=== PATIENT | female | born 1950 | race Hispanic/Latino ===

== ENCOUNTER 2016-11-28 08:08 | Day surgery (SDC) | payer MEDICAID ==
[~2016-11-28 08:08] MED LIST: TETRACAINE 0.5% OS PRN
[2016-11-28] MEDS: AK-Dilate OS SCH ×3 (09:03→09:24)
[2016-11-28] MEDS: VIGAMOX OS SCH ×3 (09:03→09:24)
[2016-11-28] MEDS: MYDRIACYL OS SCH ×3 (09:03→09:24)
--- NOTE | 2016-11-28 09:03 | Anesthesia Consultation ---
Anesthesia Consult and Med Hx Date of service: 11/28/16 - Airway Anesthetic Teeth Evaluation: Dentures ROM Head & Neck: Adequate Mental/Hyoid Distance: Adequate Mallampati Class: Class III Intubation Access Assessment: Possibly Difficult - Pulmonary Exam CTA: No (inspiratory/expiratory wheezing) - Cardiac Exam Cardiac Exam: RRR - Pre-Operative Health Status ASA Pre-Surgery Classification: ASA3 Proposed Anesthetic Plan: MAC - Pulmonary Hx Smoking: Yes (1/2 PPD X 50 YRS) Hx Asthma: Yes SOB: Yes (SOB WITH ACTIVITY) COPD: Yes Hx Sleep Apnea: Yes (DX SLEEP APNEA- NO CPAP USE) - Cardiovascular System Hx Hypertension: Yes - Central Nervous System Hx Seizures: Yes Hx Back Pain: Yes (BACK PAIN TO ASTER LEGS) Hx Psychiatric Problems: Yes - Gastrointestinal Hx Gastroesophageal Reflux Disease: Yes - Endocrine Hx Cirrhosis: Yes Hx Liver Disease: Yes (CIRRHOSIS, HEPATITIS C) - Other Systems Hx Alcohol Use: Yes (ETOH ABUSE- PT STATES STILL DRINKS "A LITTLE") Hx Substance Use: Yes (HX COCAINE ABUSE-STOPPED X 8 YRS) Hx Cancer: No
--- NOTE | 2016-11-28 09:04 | Anesthesia Day of Surgery ---
Anesthesia Day of Surgery - Day of Surgery Patient Examined: Yes Patient H&P Reviewed: Yes Patient is NPO: Yes
[2016-11-28] MEDS ORDERED: VERSED ONE (10:14)
[2016-11-28] MEDS ORDERED: SUBLIMAZE ONE (10:15)
[2016-11-28] MEDS ORDERED: NACL 0.9% 100 ML ONE (10:38)
--- NOTE | 2016-11-28 10:50 | Post Anesthesia Evaluation ---
- Post Anesthesia Evaluation Patient Participated: Yes Airway Patent: Yes Stable Respiratory Function: Yes Nausea/Vomiting: No Temp > 96.8F: Yes Pain Manageable: Yes Adequeate Hydration: Yes Anesthesia Complications: No Block Receding Appropriately: Not Applicable Patient on Ventilator: No
--- NOTE | 2016-11-28 11:25 | Operative Report ---
Operative Report Operative Report: PATIENT'S NAME: DATE OF : DATE OF SURGERY: 11/28/2016 PREOPERATIVE DIAGNOSIS: Cataract left eye POSTOPERATIVE DIAGNOSIS: Same OPERATIVE PROCEDURE: Phacoemulsification with intraocular lens implantation, left eye SURGEON: Kristy Oquendo M.D. MATERIAL SPECIALIST SURGEON: Teresa Lens: [id number] 25.0 D ANESTHESIA: Monitored anesthesia care in combination with topical and intracameral anesthesia because of the established specific risk of reflux, arrhythmias, or anxiety attacks associated with ocular manipulation, as well as the difficulty of the employment counselor to manage such potentially catastrophic events while simultaneously attempting to complete the surgical procedure and was deemed necessary for the patient's safety to have an Machine Assembler Supervisor present during the procedure whenever possible. An Machine Assembler Supervisor was utilized to regulate the intravenous sedation of the patient so the patient was cooperative yet not asleep in order for the patient to successfully maintain fixation of the eye on the operating light of the microscope. COMPLICATIONS: No surgical complications No blood loss. ALLERGIES: IV dye PROGNOSIS: Excellent INDICATIONS FOR SURGERY: The patient is undergoing surgery in the hopes of eliminating or improving these visual difficulties. PROCEDURE: After arriving at the surgery center, the patient was given topical anesthetic and dilating drops, as noted in the record. The patient was then taken into the operating room and given more anesthetic drops. The eyelids , lashes, and lid margins were scrubbed with Betadine solution, and the patient was draped. The Nurse Machine Assembler Supervisor administered IV sedation and monitored the patient during the procedure. The eye was then fixated with a 0.12, and a stab incision was made in the peripheral clear cornea into the anterior chamber. This was made on my left side. Viscoelastic was next used to fill the anterior chamber. The eye was once again fixated with the 0.12 forceps and a keratome was used make an incision in clear cornea peripherally on my right hand side temporally. The capsule forceps were used to open the central anterior capsule and then make a continuous round capsulotomy. Hydrodissection was carried out utilizing a cannula and balanced salt solution to delineate the cortical material from the capsule and the nucleus from the cortical material. The phaco tip was introduced into the eye and used to remove the anterior cortical material in the area of the capsulotomy. Then the phaco tip was buried into the nucleus, and a chopping instrument was introduced into the eye and used to provide countertraction in the nucleus between this instrument and the phaco tip fracturing the nucleus. This procedure was repeated multiple times, providing multiple small segments of the lens, and then the phaco tip was used to remove each of these segments. An I/A tip was then used to remove the remaining cortex. The anterior chamber was refilled with viscoelastic. An one-piece, acrylic intraocular lens was then placed into an inserting cartridge. The tip of the inserting cartridge was introduced into the keratome incision and into the anterior chamber. The implant was gently advanced through the cartridge and into the eye, where it unfolded, and both haptics were placed in the capsular bag, where it centered nicely and appeared to be well fixated. After placement of the intraocular lens, the I~and~A handpiece was placed back into the eye and used to remove the viscoelastic, including viscoelastic that was behind the optic of the intraocular lens. The anterior chamber was then filled with balanced salt solution, and hydration of the wound was used to cause swelling of the wound and more appropriate watertight closure. When the wound was found to be firm, the patient was asked to comment on how bright the light was. If there was no light perception at all or if the light was substantially dimmer than during the rest of the surgery, the amount of fluid in the eye was decompressed to lower the intraocular pressure until the patient could see the bright light again. This was done to avoid any damage or decreased blood flow to the optic nerve. MEDICATIONS APPLIED AT END OF SURGERY: One drop of Pred Forte and Vigamox The patient was given a shield to wear at night and was instructed not to rub or push on the eye. DISCHARGE SUMMARY: The patient was released in stable condition. The patient and those with the patient were given a written sheet of postoperative instructions and counseling on any abnormal laboratory studies. The patient is to see us tomorrow for follow-up in the office and is to call immediately for any difficulties. Kristy Oquendo M.D. Date
--- NOTE | 2016-11-28 11:26 | Short Stay Summary ---
Short Stay Documentation Date of service: 11/28/16 - History H&P: obtained from office - Allergies and Medications Current Medications: Allergies Iodinated Contrast Media - IV Dye Allergy (Verified 09/19/16 16:17) Itching ivp dye Allergy (Uncoded 09/19/16 16:17) Itching Home Medications Medication Instructions Recorded Confirmed Last Taken Type QUEtiapine [Seroquel] 400 mg PO QHS 08/27/13 11/28/16 11/27/16 18:45 History Disulfiram (Nf) [Antabuse (Nf)] 250 mg PO DAILY 10/13/13 11/28/16 11/27/16 18: 45 History Ropinirole HCl [Requip] 0.5 mg PO DAILY #30 tablet 10/16/13 11/28/16 11/27/16 18 :45 Rx Loratadine [Claritin] 10 mg PO DAILY 12/04/13 11/28/16 11/27/16 18:45 History Promethazine [Phenergan TAB] 25 mg PO TID PRN 12/04/13 11/28/16 01/23/16 History Ranitidine HCl [Zantac] 150 mg PO QDAY 12/04/13 11/28/16 11/27/16 18:45 History ALPRAZolam [Xanax TAB] 0.5 mg PO DAILY #30 tablet 09/06/16 11/28/16 11/27/16 18: 45 Rx Arformoterol Nebu [Brovana Nebu] 15 mcg IH Q12HRT #60 ml 09/06/16 11/28/1611/27 18:45 Rx Cetirizine HCl [ZyrTEC] 10 mg PO DAILY #30 capsule 09/06/16 11/28/16 11/27/16 18 :45 Rx Donepezil [Aricept] 5 mg PO QHS #30 tablet 09/06/16 11/26/16 Unknown Rx Famotidine [Pepcid] 20 mg PO BID #60 tablet 09/06/16 11/28/16 11/27/16 18:45 Rx Gabapentin [Neurontin] 300 mg PO BID #60 capsule 09/06/16 11/26/16 Unknown Rx Gemfibrozil [Lopid] 600 mg PO BID #60 tablet 09/06/16 11/26/16 Unknown Rx HYDROcodone/APAP 5-325 [[place] 1 each PO Q6H PRN #40 tablet 09/06/16 11/26/16 Unknown Rx 5-325 mg TAB] Ipratropium/Albuterol Sulfate 1 ampul IH Q6HRT #100 ampul.neb 09/06/16 11/28/16 11/27/16 18:45 Rx [Duoneb 0.5 mg-3 mg/3 ml Soln] Methocarbamol [Robaxin TAB] 750 mg PO BID #60 tablet 09/06/16 11/28/16 11/27/16 18:45 Rx PARoxetine [Paxil] 40 mg PO DAILY #30 tablet 09/06/16 11/28/16 11/27/16 18:45 Rx Simvastatin [Zocor TAB] 20 mg PO QHS tablet 09/06/16 11/28/16 11/27/16 18:45 Rx amLODIPine [Norvasc] 10 mg PO QDAY #30 tablet 09/06/16 11/28/16 11/27/16 18:45 Rx busPIRone [Buspar] 10 mg PO TID #60 tablet 09/06/16 11/28/16 11/27/16 18:45 Rx rOPINIRole [Requip] 0.5 mg PO QHS #30 tablet 09/06/16 11/28/16 11/27/16 18:45 Rx Active Medications Moxifloxacin HCl (Vigamox) 1 drops OS Q5MIN ANGE Stop: 11/28/16 18:00 Last Admin: 11/28/16 09:24 Dose: 1 drops Phenylephrine HCl (Ak-Dilate) 1 drops OS Q5MIN ANGE Stop: 11/28/16 18:01 Last Admin: 11/28/16 09:24 Dose: 1 drops Prednisolone Acetate (Pred Forte 1%) 1 drops OS QID ANGE Tetracaine HCl (Tetracaine 0.5%) 1 drops OS Q5M PRN PRN Reason: Analgesia Stop: 11/28/16 18:00 Last Admin: 11/28/16 09:02 Dose: 1 drops Tropicamide (Mydriacyl) 1 drops OS Q5MIN ANGE Stop: 11/28/16 18:00 Last Admin: 11/28/16 09:24 Dose: 1 drops - Brief post op/procedure progress note Date of procedure: 11/28/16 Pre-op diagnosis: cataract left eye Post-op diagnosis: same Procedure: Phacoemulsification with intraocular lens insertion left eye Anesthesia: MAC Surgeon: GALINA MONTES Estimated blood loss: none Pathology: none Condition: stable - Disposition Condition at discharge: Good Disposition: DISCHARGED TO HOME OR SELFCARE - Discharge Diagnoses (1) Cataract Status: Resolved Short Stay Discharge Plan Additional Instructions: PLEASE FOLLOW DR CARDOSO'S PRINTED INSTRUCTIONS AND THE EYE DROP SCHEDULE. FOR ANY CONCERNS RELATED TO YOUR SURGERY, PLEASE CALL THE SURGEON. Follow up with: MITCHELL GUEVARA MD [Primary Care Provider] - 7 Days Forms: Outpatient Surgery [place] [facility].
[2016-11-28] MEDS ORDERED: PRED FORTE 1% OS SCH (12:00)
[2016-11-28 12:03] VITALS: BP 151/88
--- NOTE | 2016-11-29 02:18 | Admit Criteria Form ---
Admission Criteria Documentation: AMBULATORY SURGERY EXCEPTION CRITERIA Ambulatory Surgery Exception Criteria ( Place 'X' for any and all applicable criteria): Surgery or procedure performed on ambulatory basis may require inpatient stay for[A] ANY ONE of the following(1)(2)(3)(4)(5)(6)(7)(8)(9): [X] I. A preoperative situation, condition, or finding that warrants inpatient stay as indicated by ANY ONE of the following: [] a) Inpatient care needed because of severity of a disease or condition rather than the surgery (eg, severe cardiac or respiratory disease, severe infection) (15) (16 ) (17) (18) [] b) Emergent procedure (eg, angioplasty for acute ischemia)(19) [] c) Complex surgical approach or situation as indicated by ANY ONE of the following(3): [] i) Open approach needed instead of usual endoscopic, transcatheter, or other less invasive procedure [] ii) Difficult approach because of previous operation [] iii) Airway monitoring required after open neck procedures(20)(21) [] iv) Large mass requiring unusually extensive dissection [] v) Additional complicating feature requiring inpatient care (eg, drain management)(22(23): [X] d) Major surgery in a pt with high anesthetic risk as indicated by ANY ONE of the following (2)(3)(5)(7)(8): [X] i) ASA risk class III or higher (severe systemic disease impairing function) [D] [] ii) Advanced age (eg, older than 85 years)(14)(24) [] iii) Symptomatic heart failure(25) [] iv) Symptomatic asthma or COPD(8)(21) [] v) Morbid obesity with hemodynamic or respiratory problems(20)( 21)(26)(27) [] vi) Obstructive sleep apnea(20)(21) [] vii) Former premature infants who are younger than 60 weeks [] viii) High risk for severe postoperative abnormalities (eg, severe postoperative hypocalcemia after parathyroidectomy for severe hyperparathyroidism)(27)( 28) [] ix) Unstable angina(25) [] e) Drug-related risk requiring inpatient stay as indicated by ANY ONE of the following(5)(10)(14)(32)(33) [] i) Procedure requires discontinuing drugs or other therapy (eg , antiarrhythmic medication, antiseizure medication), which necessitates inpatient observation or treatment.(18)(31) [] ii) Major surgery and high risk drug use as indicated by ANY ONE of the following: [] 1) Active abuse of cocaine or similar drug [] 2) Monoamine oxidase inhibitor use [] 3) Other drug identified as posing risk [] f) Inadequate outpatient care situation as indicated by ANY ONE of the following(5)(10)(14)(32)(33) [] i) Patient lives remote from medical facility and procedure has urgent complication potential, and temporary nearby residence cannot be arranged [] ii) Patient will have postprocedure incapacitation and inadequate assistance at home, or alternative level of care cannot be arranged. [] iii) Patient will have long general anesthesia or procedure side effect resolution time, and competent person to stay with patient on first postoperative night at home or alternative level of care cannot be arranged. []iv) Other inadequate outpatient situation that cannot be handled by other means [] II. A perioperative event, condition, or finding that warrants inpatient stay as indicated by ANY ONE of the following (1)(2)(3): [] a) Inadequate physiologic recovery: cardiovascular, respiratory, or hemodynamic status not normal or near preoperative baseline(18) [] b) Hemodynamic instability [] c) Patient not alert with near normal or baseline mental status [] d) Temperature not normal or as expected and not appropriate for outpatient treatment of condition [] e) Ambulatory or appropriate activity level status not yet achieved post procedure [E](34)(35)(36) [] f) Operative site not appropriate (eg, unexpected or excessive drainage or bleeding) [] g) Postoperative effects not resolved or adequately managed (eg, significant pain or vomiting not appropriate for outpatient or next level of care)(10)(12) [] h) Complicating features requiring inpatient care as indicated by ANY ONE of the following(37): [] i) Severe complications of procedure (eg, bowel injury, airway compromise, vascular injury,severe hemorrhage) [] ii) Extensive (eg, dissection far beyond usual scope of procedure ) or prolonged (eg, 120 minutes beyond usual) surgery needed requiring inpatient postoperative care [] iii) Conversion to an open or complex procedure that requires inpatient care (eg, open vs laparoscopic cholecystectomy, abdominal vs vaginal hysterectomy)(38) [] iv) Comorbid condition or test result identified during or post procedure that requires inpatient care (7) [] v) Malignant hyperthermia(30) [] vi) Other complicating feature requiring inpatient care(22)(23) Inpatient stay may be needed until ALL of the following are present (1)(2)(3)(4) (5)(6)(10)(14)(33)(40): []a) Physiologic recovery: cardiovascular, respiratory, and hemodynamic status normal or near preoperative baseline []b) Hemodynamic stability []c) Patient alert, with near normal or baseline mental status []d) Temperature appropriate: patient afebrile or temperature appropriate for outpt treatment of condition []e) Activity level appropriate: ambulatory or appropriate activity level post procedure []f) Operative site appropriate as indicated by ALL of the following: []i) Site dry or with expected drainage []ii) Any blood noted is as expected for procedure. []g) Postoperative effects resolved or managed as indicated by ALL of the following: []i) Pain management appropriate for outpatient (or next level of) care(10) []ii) Minimal nausea and vomiting: if present, successfully treated with oral medication(12) []iii) Headache, dizziness, or drowsiness (if present) are mild. []h) Voiding status acceptable as indicated by ANY ONE of the following: []i) Voiding spontaneously []ii) No voiding but instructions given for follow-up in 6 to 8 hours []iii) Urinary catheter in place, and instructions given for follow-up []i) Complicating features requiring inpatient care manageable at a lower level of care(37) []j) Comorbid conditions manageable at a lower level of care(37) The original [employer] content created by [employer] has been revised. The portions of the content which have been revised are identified through the use of italic text or in bold, and [facility] [employer] has neither reviewed nor approved the modified material. All other unmodified content is copyright [employer]. Please see references footnoted in the original [employer] edition 2016 Admission Criteria Met: Yes
== END 2016-11-28 11:20 | disposition home or self-care (01) ==
LOC: OR 08:08
DX: H25.12 Age-related nuclear cataract, left eye (principal); F17.210 Nicotine dependence, cigarettes, uncomplicated; I10 Essential (primary) hypertension; E78.00 Pure hypercholesterolemia, unspecified; J43.9 Emphysema, unspecified; J44.9 Chronic obstructive pulmonary disease, unspecified; F32.9 Major depressive disorder, single episode, unspecified; F41.9 Anxiety disorder, unspecified; Z72.89 Other problems related to lifestyle; Z90.49 Acquired absence of other specified parts of digestive tract; E89.0 Postprocedural hypothyroidism; Z96.652 Presence of left artificial knee joint; F14.90 Cocaine use, unspecified, uncomplicated; G47.33 Obstructive sleep apnea (adult) (pediatric)
CPT/HCPCS: 66984; J2250; J3010; V2630; V2632

== ENCOUNTER 2016-12-05 16:27 | Emergency (ER) | payer MEDICAID ==
[2016-12-05] MEDS ORDERED: MORPHINE IV ONE (17:08)
--- NOTE | 2016-12-05 17:10 | Emergency Department Report ---
HPI - General Chief Complaint: Abdominal Pain Time Seen by Provider: 12/05/16 16:52 - HPI HPI: This is a 66-year-old female presents to the emergency department by EMS with complaint of a 23 day history of generalized abdominal pain. This associated with some nausea and vomiting. She denies any fever, vaginal bleeding, discharge, dysuria, back pain. She did not take anything for symptoms prior to presentation. The patient otherwise says she is urinating and having normal bowel movements. No recent travel or sick contacts at home. The patient has history of arthritis, asthma, COPD on 2 L oxygen nasal cannula, GERD, hypertension, cirrhosis, hepatitis C. She has a past surgical history of cholecystectomy and thyroid surgery. Her primary care doctor is Dr. PA Past Medical Hx - Past Medical History Previous Medical History?: Yes Hx Hypertension: Yes Hx GERD: Yes Hx Liver Disease: Yes (CIRRHOSIS, HEPATITIS C) Hx Arthritis: Yes Hx Seizures: Yes Hx Psychiatric Treatment: Yes Hx Asthma: Yes Hx COPD: Yes Hx Dementia: Yes (POOR MEMORY , ON MEDS) Additional medical history: osteoporosis, sleep apnea/cpap @ night, Home O2-3L, emphysema - Surgical History Past Surgical History?: Yes Hx Cholecystectomy: Yes Additional Surgical History: thyroid surg t&a - Social History Smoking Status: Current Every Day Smoker - Medications Home Medications: Home Medications Medication Instructions Recorded Confirmed Last Taken Type QUEtiapine [Seroquel] 400 mg PO QHS 08/27/13 11/28/16 11/27/16 18:45 History Disulfiram (Nf) [Antabuse (Nf)] 250 mg PO DAILY 10/13/13 11/28/16 11/27/16 18: 45 History Ropinirole HCl [Requip] 0.5 mg PO DAILY #30 tablet 10/16/13 11/28/16 11/27/16 18 :45 Rx Loratadine [Claritin] 10 mg PO DAILY 12/04/13 11/28/16 11/27/16 18:45 History Promethazine [Phenergan TAB] 25 mg PO TID PRN 12/04/13 11/28/16 01/23/16 History Ranitidine HCl [Zantac] 150 mg PO QDAY 12/04/13 11/28/16 11/27/16 18:45 History ALPRAZolam [Xanax TAB] 0.5 mg PO DAILY #30 tablet 09/06/16 11/28/16 11/27/16 18: 45 Rx Arformoterol Nebu [Brovana Nebu] 15 mcg IH Q12HRT #60 ml 09/06/16 11/28/1611/27 18:45 Rx Cetirizine HCl [ZyrTEC] 10 mg PO DAILY #30 capsule 09/06/16 11/28/16 11/27/16 18 :45 Rx Donepezil [Aricept] 5 mg PO QHS #30 tablet 09/06/16 11/26/16 Unknown Rx Famotidine [Pepcid] 20 mg PO BID #60 tablet 09/06/16 11/28/16 11/27/16 18:45 Rx Gabapentin [Neurontin] 300 mg PO BID #60 capsule 09/06/16 11/26/16 Unknown Rx Gemfibrozil [Lopid] 600 mg PO BID #60 tablet 09/06/16 11/26/16 Unknown Rx HYDROcodone/APAP 5-325 [[place] 1 each PO Q6H PRN #40 tablet 09/06/16 11/26/16 Unknown Rx 5-325 mg TAB] Ipratropium/Albuterol Sulfate 1 ampul IH Q6HRT #100 ampul.neb 09/06/16 11/28/16 11/27/16 18:45 Rx [Duoneb 0.5 mg-3 mg/3 ml Soln] Methocarbamol [Robaxin TAB] 750 mg PO BID #60 tablet 09/06/16 11/28/16 11/27/16 18:45 Rx PARoxetine [Paxil] 40 mg PO DAILY #30 tablet 09/06/16 11/28/16 11/27/16 18:45 Rx Simvastatin [Zocor TAB] 20 mg PO QHS tablet 09/06/16 11/28/16 11/27/16 18:45 Rx amLODIPine [Norvasc] 10 mg PO QDAY #30 tablet 09/06/16 11/28/16 11/27/16 18:45 Rx busPIRone [Buspar] 10 mg PO TID #60 tablet 09/06/16 11/28/16 11/27/16 18:45 Rx rOPINIRole [Requip] 0.5 mg PO QHS #30 tablet 09/06/16 11/28/16 11/27/16 18:45 Rx Dicyclomine [Bentyl] 10 mg PO QID PRN #20 capsule 12/05/16 Unknown Rx Nitrofurantoin [place]/M-Cryst 100 mg PO Q12HR #14 capsule 12/05/16 Unknown Rx [Macrobid CAP] ED Review of Systems ROS: Stated complaint: ABD PAIN Other details as noted in HPI Comment: All other systems reviewed and negative Constitutional: denies: chills, fever Eyes: denies: eye pain, eye discharge, vision change ENT: denies: ear pain, throat pain Respiratory: denies: cough, shortness of breath, wheezing Cardiovascular: denies: chest pain, palpitations Gastrointestinal: abdominal pain, nausea, vomiting Genitourinary: denies: urgency, dysuria, discharge Musculoskeletal: denies: back pain, joint swelling, arthralgia Skin: denies: rash, lesions Neurological: denies: headache, weakness, paresthesias Physical Exam - Physical Exam Vital Signs: Vital Signs 12/05/16 12/05/16 12/05/16 16:34 16:41 16:42 Temperature 98.4 F Pulse Rate 105 H 108 H Respiratory 22 22 Rate Blood Pressure 161/90 161/90 O2 Sat by Pulse 95 96 97 Oximetry Physical Exam: GENERAL: The patient is well-developed well-nourished. HEENT: Normocephalic. Atraumatic. Extraocular motions are intact. Patient has moist mucous membranes. Pupils equal reactive to light bilateral. NECK: Supple. Trachea is midline. CHEST/LUNGS: Clear to auscultation. There is some tachypnea and no accessory muscle use. There is no respiratory distress noted. HEART/CARDIOVASCULAR: Regular. There is no tachycardia. There is no gallop rub or murmur. ABDOMEN: Abdomen is soft. Mild generalized tenderness to palpation of the abdomen or no guarding rebound tenderness. Morbidly obese habitus. Patient has normal bowel sounds. There is no abdominal distention. SKIN: Skin is warm and dry. NEURO: The patient is awake, alert, and oriented. The patient is cooperative. The patient has no focal neurologic deficits. The patient has normal speech. MUSCULOSKELETAL: There is no tenderness or deformity. There is no limitation range of motion. There is no evidence of acute injury. ED Course Vital Signs 12/05/16 12/05/16 12/05/16 16:34 16:41 16:42 Temperature 98.4 F Pulse Rate 105 H 108 H Respiratory 22 22 Rate Blood Pressure 161/90 161/90 O2 Sat by Pulse 95 96 97 Oximetry ED Medical Decision Making - Lab Data Result diagrams: 12/05/16 17:23 12/05/16 17:23 - Radiology Data Radiology results: report reviewed, image reviewed interpreted by me: Abdominal x-ray shows nonobstructive nonspecific bowel gas. CT of the abdomen and pelvis without contrast shows indeterminate nodular density of the right lung base. Several small hepatic cysts. No acute abnormalities are seen in the abdomen or pelvis. - Medical Decision Making 66-year-old female presents with a 2 to three-day history of some generalized abdominal pain. Her labs show some leukopenia, hypokalemia that was replaced with potassium chloride and a mild urinary tract infection. Patient's abdominal x-ray shows some nonspecific nonobstructive bowel gas. Due to the patient's complaint of her discomfort a CT of the abdomen and pelvis was done that showed an indeterminate nodular density of the right lung base and some hepatic cysts but otherwise no acute process. The patient was told of the imaging results of that she can follow up with Dr. Guevara regarding the nodule in the lungs. Patient was given some pain medication here and appeared improved. The patient's labs came back showing a urine drug screen positive for cocaine, which has occurred in the past. The patient still denies any use of illicit drugs but for this reason I did not feel comfortable prescribing opiate narcotics, which the patient was requesting explicitly. The patient was given some Bentyl and encouraged to follow-up with her primary care doctor. She was also encouraged to return to the emergency department with any worsening of her symptoms or any acute distress. Vital signs stable throughout her ED course. Critical Care Time: No Critical care attestation.: If time is entered above; I have spent that time in minutes in the direct care of this critically ill patient, excluding procedure time. ED Disposition Clinical Impression: Cocaine abuse, Pulmonary nodule, Hypokalemia COPD (chronic obstructive pulmonary disease) Qualifiers: COPD type: unspecified COPD Qualified Code(s): J44.9 - Chronic obstructive pulmonary disease, unspecified Abdominal pain Qualifiers: Abdominal location: generalized Qualified Code(s): R10.84 - Generalized abdominal pain UTI (urinary tract infection) Qualifiers: Urinary tract infection type: acute cystitis Hematuria presence: without hematuria Qualified Code(s): N30.00 - Acute cystitis without hematuria Disposition: DISCHARGED TO HOME OR SELFCARE Is pt being admited?: No Condition: Stable Instructions: Urinary Tract Infection in Women (ED), Chronic Obstructive Pulmonary Disease (ED), Abdominal Pain (ED), Pulmonary Nodules (ED) Additional Instructions: Please follow-up with Dr. Guevara in the next few days regarding your abdominal discomfort and has a follow-up for your COPD and the CT findings of possible right lung nodule. Return to the emergency department with any worsening of your symptoms or any acute distress. Prescriptions: Dicyclomine [Bentyl] 10 mg PO QID PRN #20 capsule PRN Reason: Pain Nitrofurantoin [place]/M-Cryst [Macrobid CAP] 100 mg PO Q12HR #14 capsule Referrals: PRIMARY MD GENTRY [Primary Care Provider] - 3-5 Days MITCHELL GUEVARA MD [Staff Physician] - 3-5 Days Time of Disposition: 21:24
[2016-12-05] MEDS ORDERED: ZOFRAN ONE (17:19)
[2016-12-05] MEDS ORDERED: ZOFRAN IV ONE (17:33)
[2016-12-05 18:00] LABS: Hematocrit 39.9 % (30.3-42.9); Hemoglobin 12.9 gm/dl (10.1-14.3); Mean Corpuscular HGB Conc 32 % (30-34); Mean Corpuscular Hemoglobin 29 pg (28-32); Mean Corpuscular Volume 89 fl (79-97); Platelet Count 150 K/mm3 (140-440); Red Blood Count 4.47 M/mm3 (3.65-5.03); Red Cell Distribution Width 14.3 % (13.2-15.2); White Blood Count 2.6 K/mm3 (4.5-11.0)
[2016-12-05 18:10] LABS: Alanine Aminotransferase 29 units/L (7-56); Albumin 3.8 g/dL (3.9-5); Alkaline Phosphatase 91 units/L (35-129); Anion Gap 17 mmol/L; Bilirubin,Total 0.4 mg/dL (0.1-1.2); Blood Urea Nitrogen 10 mg/dL (7-17); Calcium 8.3 mg/dL (8.4-10.2); Carbon Dioxide 24 mmol/L (22-30); Chloride 94.6 mmol/L (98-107); Glucose 105 mg/dL (65-100); Lipase 30 units/L (13-60); Sodium 133 mmol/L (137-145); Total Protein 7.5 g/dL (6.3-8.2)
[2016-12-05 18:13] LABS: Potassium 2.9 mmol/L (3.6-5.0)
[2016-12-05] MEDS ORDERED: K-DUR PO ONE (18:27)
[2016-12-05] MEDS ORDERED: NACL ONE (18:32)
[2016-12-05 18:45] VITALS: BP 131/70
[2016-12-05 18:51] LABS: Basophils % (Manual) 0 % (0.0-1.8); Blastocytes % (Manual) 0 %; Eosinophils % (Manual) 0 % (0.0-4.3)
[2016-12-05 18:52] LABS: Anisocytosis 1+; Diff Status Complete; Platelet Estimate Consistent w Auto; Poikilocytosis 1+
--- NOTE | 2016-12-05 20:00 | Cat Scan Report ---
FINAL REPORT PROCEDURE: CT ABDOMEN PELVIS WO CON TECHNIQUE: Computerized axial tomography of the abdomen and pelvis was performed without intravenous contrast. This study is performed without intravascular contrast material and its sensitivity for abdominal and pelvic pathology, including neoplasms, inflammation, abscess, free fluid, thrombosis, arterial dissection and infarction, is reduced compared with a contrast enhanced study. HISTORY: Abd pain COMPARISON: No prior studies are available for comparison. FINDINGS: Lower Lung gil: There is an indeterminate nodular density measuring 6 millimeters in the right middle lobe seen on image 1 of the axial images. The entire nodule is not visualized. There is some patchy density present in the lingula suggesting small amount of atelectasis. Small air cyst is visualized in the left lower lobe. Upper Abdomen: There are 2 small low-density nodules in the right lobe of the liver and 1 in the left lobe of the liver which appear to represent small hepatic cyst. The liver is otherwise unremarkable. The gallbladder is surgically absent. The spleen is not enlarged. The adrenal glands and the pancreas show no abnormalities. Kidneys, Ureters and Urinary bladder: No abnormalities are seen. Retroperitoneum: Atherosclerotic changes are seen in the abdominal aorta. No aneurysm is visualized. Nonspecific subcentimeter lymph nodes are seen in the retroperitoneum. No pathologically enlarged lymph nodes are identified. Bowel: No focal bowel abnormalities are seen. There is no evidence of bowel obstruction or ascites. There is no free intraperitoneal gas. Normal-appearing appendix appears to be visualized in the right lower quadrant anteriorly. Reproductive organs: Uterus and adnexa are unremarkable. Other: No acute bony abnormalities are seen. IMPRESSION: Indeterminate nodular density right lung base as described. Consider follow-up CT scan of the chest for further evaluation. Several small hepatic cysts appear to be present. This could be confirmed with ultrasound if clinically indicated. No acute abnormalities are seen in the abdomen or pelvis.
[2016-12-05 20:56] LABS: Urine Drugs of Abuse Note Disclamer
[2016-12-05 21:10] LABS: Bilirubin,Urine NEG (Negative); Blood,Urine NEG (Negative); Ketones,Urine TR mg/dL (Negative); Leukocyte Esterase,Urine TR (Negative); Mucus,Urine 1+ /HPF; Nitrite,Urine NEG (Negative)
[2016-12-05 21:13] LABS: Protein,Urine >500 mg/dL (Negative)
--- NOTE | 2016-12-06 11:30 | XRay Report ---
Abdominal series: AP view of the chest is unremarkable. There is mild gaseous distention of scattered small bowel loops with multiple air-fluid levels. There is gas identified in the colon. No free air identified. No soft tissue mass. No abnormal soft tissue calcifications. Cholecystectomy clips present. Impression: Nonspecific ileus pattern.
== END 2016-12-05 22:55 | disposition home or self-care (01) ==
LOC: ED 16:27
DX: N30.00 Acute cystitis without hematuria (principal); J44.9 Chronic obstructive pulmonary disease, unspecified; J98.4 Other disorders of lung; E87.6 Hypokalemia; F14.10 Cocaine abuse, uncomplicated; R10.84 Generalized abdominal pain; I10 Essential (primary) hypertension; K21.9 Gastro-esophageal reflux disease without esophagitis; J45.909 Unspecified asthma, uncomplicated; F17.200 Nicotine dependence, unspecified, uncomplicated
CPT/HCPCS: 36415; 74020; 74176; 80053; 80307; 81001; 83690; 85007; 85025; 96374; 96375; 99285; J2270; J2405

== ENCOUNTER 2017-08-09 15:41 | Inpatient (IN) | payer MEDICARE ==
[2017-08-09] MEDS ORDERED: ATROVENT IH ONE ×3 (17:07→21:10)
[2017-08-09] MEDS ORDERED: XOPENEX IH ONE ×3 (17:07→21:10)
--- NOTE | 2017-08-09 17:09 | Emergency Department Report ---
ED N/V/D HPI - General Chief complaint: Pain General Stated complaint: GENERAL SICKNESS Time Seen by Provider: 08/09/17 17:02 Source: patient Mode of arrival: Stretcher Limitations: No Limitations - History of Present Illness Initial comments: 67 yo female poor historian . Pt presents her because she feel sick. Her sickness included nausea fo 1 week and abdominal pain. She has also been couching for 1 week and is on 2l home oxygen. she also feels weak and her entire body is tender to the touch. She has a h/o COPD,EMPHYSEMA,BRONCHITIS, HEPC AND LIVER CIRRHOSIS. she does not feel short of breath. MD complaint: nausea, abdominal pain -: week(s) (1) Associated Abdominal Pain: Yes Location: diffuse Pain Scale: 5 Quality: aching - Related Data Home Medications Medication Instructions Recorded Confirmed Last Taken QUEtiapine [Seroquel] 400 mg PO QHS 08/27/13 08/09/17 11/27/16 18:45 Disulfiram (Nf) [Antabuse (Nf)] 250 mg PO DAILY 10/13/13 08/09/17 11/27/16 18:45 Loratadine [Claritin] 10 mg PO DAILY 12/04/13 08/09/17 11/27/16 18:45 Promethazine [Phenergan TAB] 25 mg PO TID PRN 12/04/13 08/09/17 01/23/16 Ranitidine HCl [Zantac] 150 mg PO QDAY 12/04/13 08/09/17 11/27/16 18:45 Previous Rx's Medication Instructions Recorded Last Taken Type Ropinirole HCl [Requip] 0.5 mg PO DAILY #30 tablet 10/16/13 11/27/16 18:45 Rx ALPRAZolam [Xanax TAB] 0.5 mg PO DAILY #30 tablet 09/06/16 11/27/16 18:45 Rx Arformoterol Nebu [Brovana Nebu] 15 mcg IH Q12HRT #60 ml 09/06/16 11/27/16 18: 45 Rx Cetirizine HCl [ZyrTEC] 10 mg PO DAILY #30 capsule 09/06/16 11/27/16 18:45 Rx Donepezil [Aricept] 5 mg PO QHS #30 tablet 09/06/16 Unknown Rx Famotidine [Pepcid] 20 mg PO BID #60 tablet 09/06/16 11/27/16 18:45 Rx Gabapentin [Neurontin] 300 mg PO BID #60 capsule 09/06/16 Unknown Rx Gemfibrozil [Lopid] 600 mg PO BID #60 tablet 09/06/16 Unknown Rx HYDROcodone/APAP 5-325 [[place] 1 each PO Q6H PRN #40 tablet 09/06/16 Unknown Rx 5-325 mg TAB] Ipratropium/Albuterol Sulfate 1 ampul IH Q6HRT #100 ampul.neb 09/06/16 11/27/16 18:45 Rx [DUONEB *Not for PRN Use*] Methocarbamol [Robaxin TAB] 750 mg PO BID #60 tablet 09/06/16 11/27/16 18:45 Rx PARoxetine [Paxil] 40 mg PO DAILY #30 tablet 09/06/16 11/27/16 18:45 Rx Simvastatin [Zocor TAB] 20 mg PO QHS tablet 09/06/16 11/27/16 18:45 Rx amLODIPine [Norvasc] 10 mg PO QDAY #30 tablet 09/06/16 11/27/16 18:45 Rx busPIRone [Buspar] 10 mg PO TID #60 tablet 09/06/16 11/27/16 18:45 Rx rOPINIRole [Requip] 0.5 mg PO QHS #30 tablet 09/06/16 11/27/16 18:45 Rx Dicyclomine [Bentyl] 10 mg PO QID PRN #20 capsule 12/05/16 Unknown Rx Nitrofurantoin [place]/M-Cryst 100 mg PO Q12HR #14 capsule 12/05/16 Unknown Rx [Macrobid CAP] Allergies Allergy/AdvReac Type Severity Reaction Status Date / Time Iodinated Contrast- Oral and Allergy Itching Verified 09/19/16 16:17 IV Dye [Iodinated Contrast Media - IV Dye] ivp dye Allergy Itching Uncoded 09/19/16 16:17 ED Review of Systems ROS: Stated complaint: GENERAL SICKNESS Other details as noted in HPI Constitutional: denies: chills, fever Eyes: denies: eye pain, eye discharge, vision change ENT: denies: ear pain, throat pain Respiratory: denies: cough, shortness of breath, wheezing Cardiovascular: denies: chest pain, palpitations Endocrine: no symptoms reported Gastrointestinal: abdominal pain, nausea, vomiting. denies: diarrhea Genitourinary: denies: urgency, dysuria, discharge Musculoskeletal: denies: back pain, joint swelling, arthralgia Skin: denies: rash, lesions Neurological: denies: headache, weakness, paresthesias Psychiatric: denies: anxiety, depression Hematological/Lymphatic: denies: easy bleeding, easy bruising ED Past Medical Hx - Past Medical History Hx Hypertension: Yes Hx GERD: Yes Hx Liver Disease: Yes (CIRRHOSIS, HEPATITIS C) Hx Arthritis: Yes Hx Seizures: Yes Hx Psychiatric Treatment: Yes Hx Asthma: Yes Hx COPD: Yes Hx Dementia: Yes (POOR MEMORY , ON MEDS) Additional medical history: osteoporosis, sleep apnea/cpap @ night, Home O2-3L, emphysema - Surgical History Hx Cholecystectomy: Yes Additional Surgical History: thyroid surg t&a - Social History Smoking Status: Current Some Day Smoker Substance Use Type: None - Medications Home Medications: Home Medications Medication Instructions Recorded Confirmed Last Taken Type QUEtiapine [Seroquel] 400 mg PO QHS 08/27/13 08/09/17 11/27/16 18:45 History Disulfiram (Nf) [Antabuse (Nf)] 250 mg PO DAILY 10/13/13 08/09/17 11/27/16 18: 45 History Ropinirole HCl [Requip] 0.5 mg PO DAILY #30 tablet 10/16/13 08/09/17 11/27/16 18 :45 Rx Loratadine [Claritin] 10 mg PO DAILY 12/04/13 08/09/17 11/27/16 18:45 History Promethazine [Phenergan TAB] 25 mg PO TID PRN 12/04/13 08/09/17 01/23/16 History Ranitidine HCl [Zantac] 150 mg PO QDAY 12/04/13 08/09/17 11/27/16 18:45 History ALPRAZolam [Xanax TAB] 0.5 mg PO DAILY #30 tablet 09/06/16 08/09/17 11/27/16 18: 45 Rx Arformoterol Nebu [Brovana Nebu] 15 mcg IH Q12HRT #60 ml 09/06/16 08/09/1711/27 18:45 Rx Cetirizine HCl [ZyrTEC] 10 mg PO DAILY #30 capsule 09/06/16 08/09/17 11/27/16 18 :45 Rx Donepezil [Aricept] 5 mg PO QHS #30 tablet 09/06/16 08/09/17 Unknown Rx Famotidine [Pepcid] 20 mg PO BID #60 tablet 09/06/16 08/09/17 11/27/16 18:45 Rx Gabapentin [Neurontin] 300 mg PO BID #60 capsule 09/06/16 08/09/17 Unknown Rx Gemfibrozil [Lopid] 600 mg PO BID #60 tablet 09/06/16 08/09/17 Unknown Rx HYDROcodone/APAP 5-325 [[place] 1 each PO Q6H PRN #40 tablet 09/06/16 08/09/17 Unknown Rx 5-325 mg TAB] Ipratropium/Albuterol Sulfate 1 ampul IH Q6HRT #100 ampul.neb 09/06/16 08/09/17 11/27/16 18:45 Rx [DUONEB *Not for PRN Use*] Methocarbamol [Robaxin TAB] 750 mg PO BID #60 tablet 09/06/16 08/09/17 11/27/16 18:45 Rx PARoxetine [Paxil] 40 mg PO DAILY #30 tablet 09/06/16 08/09/17 11/27/16 18:45 Rx Simvastatin [Zocor TAB] 20 mg PO QHS tablet 09/06/16 08/09/17 11/27/16 18:45 Rx amLODIPine [Norvasc] 10 mg PO QDAY #30 tablet 09/06/16 08/09/17 11/27/16 18:45 Rx busPIRone [Buspar] 10 mg PO TID #60 tablet 09/06/16 08/09/17 11/27/16 18:45 Rx rOPINIRole [Requip] 0.5 mg PO QHS #30 tablet 09/06/16 08/09/17 11/27/16 18:45 Rx Dicyclomine [Bentyl] 10 mg PO QID PRN #20 capsule 12/05/16 08/09/17 Unknown Rx Nitrofurantoin [place]/M-Cryst 100 mg PO Q12HR #14 capsule 12/05/16 08/09/17 Unknown Rx [Macrobid CAP] ED Physical Exam - General Limitations: No Limitations General appearance: alert, in no apparent distress - Head Head exam: Present: atraumatic, normocephalic - Eye Eye exam: Present: normal appearance - ENT ENT exam: Present: mucous membranes moist - Neck Neck exam: Present: normal inspection - Respiratory Respiratory exam: Present: normal lung sounds bilaterally. Absent: respiratory distress - Cardiovascular Cardiovascular Exam: Present: regular rate, normal rhythm. Absent: systolic murmur, diastolic murmur, rubs, gallop - GI/Abdominal GI/Abdominal exam: Present: soft, tenderness (over entire abdomen especiallly), guarding, diminished bowel sounds, hypoactive bowel sounds. Absent: rebound, rigid - Rectal Rectal exam: Present: deferred - Extremities Exam Extremities exam: Present: normal inspection, full ROM - Back Exam Back exam: Present: normal inspection, full ROM - Neurological Exam Neurological exam: Present: alert, oriented X3, CN II-XII intact - Psychiatric Psychiatric exam: Present: normal affect, normal mood - Skin Skin exam: Present: warm, dry, intact, normal color. Absent: rash ED Course Vital Signs 08/09/17 08/09/17 08/09/17 16:13 21:17 21:48 Temperature 98.3 F Pulse Rate 100 H 115 H Pulse Rate [ 94 H Right Lower Lobe] Respiratory 16 16 Rate Respiratory 18 Rate [Right Lower Lobe] Blood Pressure 131/85 Blood Pressure 138/88 [Left] O2 Sat by Pulse 96 94 Oximetry ED Medical Decision Making - Lab Data Result diagrams: 08/09/17 20:49 08/09/17 20:49 - EKG Data -: EKG Interpreted by Me Rate: tachycardia (q in II,avf, normal axis) - Radiology Data Radiology results: report reviewed (CT ABD/PELVIS : ILEUS) Critical care attestation.: If time is entered above; I have spent that time in minutes in the direct care of this critically ill patient, excluding procedure time. ED Disposition Clinical Impression: Ileus, unspecified, Morbid obesity, COPD exacerbation Abdominal pain Qualifiers: Abdominal location: unspecified location Qualified Code(s): R10.9 - Unspecified abdominal pain Disposition: OP ADMIT IP TO THIS HOSP Is pt being admited?: Yes Condition: Stable Instructions: Chronic Bronchitis (ED) Referrals: PRIMARY CARE, [Primary Care Provider] - 3-5 Days Time of Disposition: 03:13 (case reviewed with Dr Iqbal and margret jones admit hte pt)
[2017-08-09 21:19] LABS: Basophils % (Auto) 0.8 % (0.0-1.8); Eosinophils % (Auto) 1.3 % (0.0-4.3); Hematocrit 35.4 % (30.3-42.9); Hemoglobin 12.2 gm/dl (10.1-14.3); Mean Corpuscular HGB Conc 35 % (30-34); Mean Corpuscular Hemoglobin 31 pg (28-32); Mean Corpuscular Volume 89 fl (79-97); Platelet Count 265 K/mm3 (140-440); Red Blood Count 3.96 M/mm3 (3.65-5.03); Red Cell Distribution Width 14.3 % (13.2-15.2)
[2017-08-09 21:39] LABS: Alanine Aminotransferase 22 units/L (7-56); Albumin 3.8 g/dL (3.9-5); Alkaline Phosphatase 100 units/L (35-129); Anion Gap 17 mmol/L; BUN/Creatinine Ratio 17; Blood Urea Nitrogen 10 mg/dL (7-17); Calcium 8.8 mg/dL (8.4-10.2); Carbon Dioxide 26 mmol/L (22-30); Creatine Kinase 21 units/L (30-135); Glucose 118 mg/dL (65-100); Potassium 4.2 mmol/L (3.6-5.0); Sodium 135 mmol/L (137-145); Total Protein 7.7 g/dL (6.3-8.2)
[2017-08-09 21:44] LABS: Creatine Kinase MB < 1.0 ng/mL (0.0-4.0)
[2017-08-09 22:41] LABS: Bacteria,Urine 1+ /HPF (Negative); Bilirubin,Urine NEG (Negative); Blood,Urine NEG (Negative); Ketones,Urine TR mg/dL (Negative); Leukocyte Esterase,Urine SM (Negative); Mucus,Urine 1+ /HPF; Nitrite,Urine NEG (Negative)
--- NOTE | 2017-08-09 23:28 | XRay Report ---
FINAL REPORT PROCEDURE: XR ABD SERIES W CXR 1V TECHNIQUE: Abdominal series complete, including supine and upright AP views of the abdomen and frontal chest. HISTORY: cough x 1week COMPARISON: No prior studies are available for comparison. FINDINGS: Heart: Normal. Mediastinum/Vessels: Normal. Lungs/Pleural space: Lungs are hyperinflated. There are no confluent infiltrates or mass lesions. Pleural spaces are clear.. Bowel gas pattern: Intestinal gas is distributed in nondistended small and large bowel loops. There is no air in the rectum.. Masses or calcifications: None. Bony structures: No acute osseous abnormality. Other: S/p cholecystectomy.. IMPRESSION: Foot gas-filled nondistended loops of small and large bowel most likely represent ileus peer if the symptoms persist follow-up studies are recommended to rule out intestinal obstruction. COPD.
--- NOTE | 2017-08-10 11:31 | XRay Report ---
Chest 2 views: Compared to 08/31/16. History: Congestion. Findings: Normal cardiomediastinal silhouette. Trachea is midline. There is linear ill-defined density noted in the right middle lobe suggestive of pneumonitis. Seen only on lateral projection. Normal CP angles. Impression: Right middle lobe pneumonia.
--- NOTE | 2017-08-10 12:37 | History and Physical Report ---
History of Present Illness Date of examination: 08/10/17 Date of admission: 08/10/17 03:15 Chief complaint: Abdominal pain with nausea and vomiting s well as cough with chest pain - 1 week History of present illness: Pt is a 67 yo lady who has history of COPD on 2L/min home oxygen and a current smoker, presented with cough, shortness of breath and extreme weakness. She feels sick. Her sickness included nausea and vomiting for 1 week with associated generalize abdominal pain. None radiatory. 6-7/10 in severity. No known aggregating or relieving factors. Vomitus was clear colore and sometimes yellowish in color. Denies any fever now but had subjective fever at onset of symptoms. She has also been couching for 1 week and is she also feels weak and her entire body is tender to the touch. She has a h/o COPD,EMPHYSEMA, BRONCHITIS,HEPC AND LIVER CIRRHOSIS. Past History Past Medical History: COPD, hepatitis (hep C), liver disease (Liver cirrhosis) Past Surgical History: total knee replacement, Other (anxiety disorder) Social history: , lives with family, smoking, alcohol abuse Family history: no significant family history Medications and Allergies Allergies Allergy/AdvReac Type Severity Reaction Status Date / Time Iodinated Contrast- Oral and Allergy Itching Verified 09/19/16 16:17 IV Dye [Iodinated Contrast Media - IV Dye] ivp dye Allergy Itching Uncoded 09/19/16 16:17 Home Medications Medication Instructions Recorded Confirmed Last Taken Type Disulfiram (Nf) [Antabuse (Nf)] 250 mg PO DAILY 10/13/13 08/10/17 08/08/17 18: 45 History Promethazine [Phenergan TAB] 25 mg PO BID PRN 12/04/13 08/10/17 08/08/17 09:00 History 25mg Arformoterol Nebu [Brovana Nebu] 15 mcg IH Q12HRT #60 ml 09/06/16 08/09/1711/27 18:45 Rx Cetirizine HCl [ZyrTEC] 10 mg PO DAILY 08/10/17 08/10/17 08/08/17 09:00 History 10mg Donepezil [Aricept] 5 mg PO QHS 08/10/17 08/10/17 08/08/17 18:45 History 5mg Famotidine [Pepcid] 20 mg PO BID PRN 08/10/17 08/09/17 Unknown History HYDROcodone/APAP 5-325 [[place] 1 each PO Q6H PRN 08/10/17 08/10/17 08/07/17 18: 45 History 5-325 mg TAB] Ipratropium/Albuterol Sulfate 1 ampul IH Q6HRT PRN 08/10/17 08/09/17 Unknown History [DUONEB *Not for PRN Use*] Methocarbamol [Robaxin TAB] 750 mg PO BID PRN 08/10/17 08/09/17 Unknown History busPIRone [Buspar] 10 mg PO BID 08/10/17 08/10/17 08/08/17 18:45 History 10mg ALBUTEROL NEB's [Proventil 0.083% 2.5 mg IH Q4HRT PRN #100 nebu 08/14/17 Unknown Rx NEBS] ALPRAZolam [Xanax TAB] 0.5 mg PO DAILY #30 tablet 08/14/17 Unknown Rx Arformoterol Nebu [Brovana Nebu] 15 mcg IH Q12HRT #60 ml 08/14/17 Unknown Rx Azithromycin [Zithromax TAB] 500 mg PO QDAY #5 tablet 08/14/17 Unknown Rx Budesonide [Pulmicort Respules] 0.5 mg IH Q12HRT #60 nebu 08/14/17 Unknown Rx Gabapentin [Neurontin] 300 mg PO BID PRN #60 capsule 08/14/17 Unknown Rx Gemfibrozil [Lopid] 600 mg PO BID #60 tablet 08/14/17 Unknown Rx PARoxetine [Paxil] 40 mg PO DAILY #30 tablet 08/14/17 Unknown Rx Ropinirole HCl [Requip] 0.5 mg PO Q48HR #30 tablet 08/14/17 Unknown Rx amLODIPine [Norvasc] 10 mg PO QDAY #30 tablet 08/14/17 Unknown Rx traMADol [Ultram 50 MG tab] 50 mg PO Q12H PRN #60 tablet 08/14/17 Unknown Rx Active Meds: Active Medications Azithromycin 500 mg/ Sodium (Chloride) 250 mls @ 250 mls/hr IV Q24HR ANGE Influenza Virus Vaccine Quadrival (Fluarix Quad [id number](36 Mos+) 0.5 ml IM .ONCE ONE Stop: 08/11/17 12:01 Pneumococcal Polyvalent Vaccine (Pneumovax 23) 0.5 ml IM .ONCE ONE Stop: 08/11/17 12:01 Review of Systems Constitutional: no weight loss, no weight gain Ears, nose, mouth and throat: no ear pain, no ear discharge, no tinnitis Cardiovascular: no chest pain, no orthopnea, no palpitations Respiratory: cough, cough with sputum, excessive sputum, shortness of breath Gastrointestinal: abdominal pain, nausea, vomiting, constipation, no diarrhea Genitourinary Female: no flank pain, no dysuria, no urinary frequency Menstruation: postmenopausal Musculoskeletal: other (knee pain) Integumentary: no rash, no pruritis, no sores Neurological: no head injury, no transient paralysis, no paralysis, no weakness Psychiatric: anxiety, memory loss, no suicidal ideation, no disorientation, no hallucinations Endocrine: no cold intolerance, no heat intolerance, no polyphagia, no excessive thirst Hematologic/Lymphatic: no easy bruising, no easy bleeding Allergic/Immunologic: no urticaria Exam - Constitutional Vitals: Temp Pulse Resp BP Pulse Ox 99.2 F 104 H 20 141/85 93 08/10/17 07:59 08/10/17 08:01 08/10/17 07:59 08/10/17 08:01 08/10/17 08:01 General appearance: Present: no acute distress, obese - EENT Eyes: Present: PERRL - Neck Neck: Present: supple, normal ROM - Respiratory Respiratory effort: normal Respiratory: bilateral: CTA - Cardiovascular Heart Sounds: Present: S1 & S2. Absent: rub, click - Extremities Extremities: pulses symmetrical, No edema Peripheral Pulses: within normal limits - Abdominal General gastrointestinal: Present: soft, non-tender, non-distended, normal bowel sounds Female genitourinary: Present: normal - Integumentary Integumentary: Present: clear, warm, dry - Musculoskeletal Musculoskeletal: gait normal, strength equal bilaterally - Psychiatric Psychiatric: appropriate mood/affect, intact judgment & insight - Neurologic Neurologic: CNII-XII intact, moves all extremities Results - Labs CBC & Chem 7: 08/13/17 04:24 08/13/17 04:24 Labs: Abnormal lab results 08/09/17 08/09/17 08/09/17 Range/Units 20:49 20:49 21:48 MCHC 35 H (30-34) % [place] % (Auto) 9.2 H (0.0-7.3) % [place] # 0.9 H (0.0-0.8) K/mm3 Sodium 135 L (137-145) mmol/L Chloride 96.0 L (98-107) mmol/L Creatinine 0.6 L (0.7-1.2) mg/dL Glucose 118 H (65-100) mg/dL Total Creatine Kinase 21 L (30-135) units/L CK-MB (CK-2) Rel Index 4.7 H (0-4) Albumin 3.8 L (3.9-5) g/dL Urine WBC (Auto) 9.0 H (0.0-6.0) /HPF Assessment and Plan Admit to [facility]. - Right lower lobe pneumonia; Blood culture, sputum culture, iv Azithromycin and Rocephin, Pnumonia and flu shot - COPD Exacerbation: commence duoneb, iv solumedrol, pumacort and continu with iv Azithromycin - Ileus: soft diet and momnitor BM closely - JUANITA/OHS: BIPAPA at night - Morbid obesity: diatary restriction advised - Tobacco use d/o: Tobacco cessation counselling done DVT and GI prophylaxis with Lovenox and pepcid Spent 32 min in direct pt care, review of laboratory, radiological data, counsulting with pt nurse and ER doctor
[2017-08-10] MEDS ORDERED: PROVENTIL IH PRN (12:56)
[2017-08-10] MEDS: ZITHROMAX 500 MG in NACL 0.9% 250ML 250 ML IV SCH (13:54)
[2017-08-10] MEDS: ULTRAM PO PRN ×2 (16:09→23:51)
[2017-08-10] MEDS: MIRALAX 3350 PO SCH (16:09)
[2017-08-10] MEDS: PULMICORT IH SCH ×2 (16:10→21:38)
[2017-08-10] MEDS: ROBITUSSIN DM PO PRN ×2 (16:26→21:26)
[2017-08-10] MEDS: cefTRIAXone 1 GM in NACL 0.9% 20 ML IV SCH (17:22)
[2017-08-10] MEDS: BROVANA NEBU IH SCH (21:38)
[2017-08-11] MEDS: ROBITUSSIN DM PO PRN ×2 (01:48→06:25)
[2017-08-11 05:28] LABS: Basophils % (Auto) 0.8 % (0.0-1.8); Eosinophils % (Auto) 0.1 % (0.0-4.3); Hemoglobin 12.9 gm/dl (10.1-14.3); Mean Corpuscular HGB Conc 34 % (30-34); Mean Corpuscular Hemoglobin 32 pg (28-32); Mean Corpuscular Volume 93 fl (79-97); Platelet Count 272 K/mm3 (140-440); Red Blood Count 4.09 M/mm3 (3.65-5.03); Red Cell Distribution Width 14.2 % (13.2-15.2)
[2017-08-11 05:54] LABS: Alanine Aminotransferase 22 units/L (7-56); Albumin 3.8 g/dL (3.9-5); Alkaline Phosphatase 101 units/L (35-129); Anion Gap 22 mmol/L; BUN/Creatinine Ratio 15; Blood Urea Nitrogen 9 mg/dL (7-17); Calcium 8.8 mg/dL (8.4-10.2); Carbon Dioxide 21 mmol/L (22-30); Chloride 94.2 mmol/L (98-107); Glucose 176 mg/dL (65-100); Potassium 4.6 mmol/L (3.6-5.0); Sodium 133 mmol/L (137-145); Total Protein 7.5 g/dL (6.3-8.2)
--- NOTE | 2017-08-11 09:11 | Progress Note ---
Assessment and Plan - Right lower lobe pneumonia; from posible gram possible organism. F/u withBlood culture, sputum culture reults. continue with iv Azithromycin and Rocephin, Pnumonia and flu shot - COPD Exacerbation: continue with Duoneb, iv solumedrol, pumacort and iv antibiotic - Ileus: Having BM. Chronically constipated. - JUANITA/OHS: BIPAPA at night - Morbid obesity: dietary restriction advised - Tobacco use d/o: Tobacco cessation counselling done DVT and GI prophylaxis with Lovenox and Pepcid Subjective Date of service: 08/11/17 Principal diagnosis: COPD exercenbation, Pneumonia Interval history: Still coughing with pleuritic and generalized body ache Objective - Constitutional Vitals: Vital Signs - 12hr 08/10/17 08/10/17 08/10/17 21:39 21:43 22:00 Temperature Pulse Rate Pulse Rate [ 99 H Anterior Bilateral Throughout] Respiratory 21 Rate Respiratory 18 Rate [Anterior Bilateral Throughout] Blood Pressure O2 Sat by Pulse 92 96 Oximetry 08/10/17 08/11/17 08/11/17 23:51 00:51 04:37 Temperature 97.9 F Pulse Rate 94 H Pulse Rate [ Anterior Bilateral Throughout] Respiratory 20 18 18 Rate Respiratory Rate [Anterior Bilateral Throughout] Blood Pressure 148/70 O2 Sat by Pulse 92 Oximetry 08/11/17 07:46 Temperature 98.4 F Pulse Rate 97 H Pulse Rate [ Anterior Bilateral Throughout] Respiratory 20 Rate Respiratory Rate [Anterior Bilateral Throughout] Blood Pressure 159/95 O2 Sat by Pulse 91 Oximetry General appearance: Present: no acute distress, well-nourished - EENT Eyes: PERRL, EOM intact - Neck Neck: supple, normal ROM - Respiratory Respiratory effort: normal Respiratory: bilateral: CTA - Cardiovascular Rhythm: regular Heart Sounds: Present: S1 & S2. Absent: gallop, rub Extremities: pulses intact, No edema, normal color, Full ROM - Gastrointestinal General gastrointestinal: Present: soft, non-tender, non-distended, normal bowel sounds - Integumentary Integumentary: clear, warm, dry - Musculoskeletal Musculoskeletal: 1, strength equal bilaterally - Neurologic Neurologic: moves all extremities - Psychiatric Psychiatric: appropriate mood/affect, intact judgment & insight - Labs CBC & Chem 7: 08/11/17 04:52 08/11/17 04:52 Labs: Abnormal lab results 08/11/17 08/11/17 Range/Units 04:52 04:52 WBC 4.0 L (4.5-11.0) K/mm3 Lymph # 0.7 L (1.2-5.4) K/mm3 Seg Neutrophils % 77.1 H (40.0-70.0) % Sodium 133 L (137-145) mmol/L Chloride 94.2 L (98-107) mmol/L Carbon Dioxide 21 L (22-30) mmol/L Creatinine 0.6 L (0.7-1.2) mg/dL Glucose 176 H (65-100) mg/dL Albumin 3.8 L (3.9-5) g/dL
[2017-08-11] MEDS: PULMICORT IH SCH ×2 (09:55→20:57)
[2017-08-11] MEDS: BROVANA NEBU IH SCH ×2 (09:55→20:57)
[2017-08-11] MEDS ORDERED: D5/0.45NS 1,000 ML IV SCH (10:00)
[2017-08-11] MEDS: MIRALAX 3350 PO SCH (10:50)
[2017-08-11] MEDS ORDERED: GUAIFENESIN DM SYRUP PO PRN (11:18)
[2017-08-11] MEDS ORDERED: APRESOLINE IV PRN (11:30)
[2017-08-11] MEDS: ZOFRAN IV PRN ×2 (11:34→16:36)
[2017-08-11] MEDS: ZITHROMAX 500 MG in NACL 0.9% 250ML 250 ML IV SCH (11:46)
[2017-08-11] MEDS: ULTRAM PO PRN ×2 (11:47→21:42)
[2017-08-11] MEDS ORDERED: Fluarix Quad 2017-2018(36 MOS+ IM ONE (12:00)
[2017-08-11] MEDS ORDERED: PNEUMOVAX 23 IM ONE (12:00)
[2017-08-11] MEDS: cefTRIAXone 1 GM in NACL 0.9% 20 ML IV SCH (15:35)
[2017-08-12 04:37] LABS: Basophils % (Auto) 0.3 % (0.0-1.8); Hematocrit 39.6 % (30.3-42.9); Hemoglobin 13.5 gm/dl (10.1-14.3); Mean Corpuscular HGB Conc 34 % (30-34); Mean Corpuscular Hemoglobin 31 pg (28-32); Mean Corpuscular Volume 90 fl (79-97); Platelet Count 432 K/mm3 (140-440); Red Blood Count 4.37 M/mm3 (3.65-5.03); Red Cell Distribution Width 14.1 % (13.2-15.2); White Blood Count 10.7 K/mm3 (4.5-11.0)
[2017-08-12 04:57] LABS: Alanine Aminotransferase 25 units/L (7-56); Albumin 4.4 g/dL (3.9-5); Alkaline Phosphatase 113 units/L (35-129); BUN/Creatinine Ratio 21; Blood Urea Nitrogen 17 mg/dL (7-17); Calcium 9.9 mg/dL (8.4-10.2); Carbon Dioxide 24 mmol/L (22-30); Glucose 158 mg/dL (65-100); Total Protein 8.9 g/dL (6.3-8.2)
[2017-08-12 04:58] LABS: Anion Gap 25 mmol/L; Chloride 91.1 mmol/L (98-107); Potassium 5.1 mmol/L (3.6-5.0); Sodium 135 mmol/L (137-145)
[2017-08-12] MEDS: ULTRAM PO PRN (05:37)
--- NOTE | 2017-08-12 09:22 | Progress Note ---
Assessment and Plan - Right lower lobe pneumonia; from possible gram positive organism. F/u with Blood culture, sputum culture results. Continue with iv Azithromycin and Rocephin, Pnumonia and flu shot - COPD Exacerbation: continue with Duoneb, iv solumedrol, Pulmacort and iv antibiotic - Ileus: not improving. Still on NPO buut still having biliou bomiting. Not complian with IVF. surgical consult - Hyperkalemia. Trend - JUANITA/OHS: BIPAPA at night - Morbid obesity: dietary restriction advised - Tobacco use d/o: Tobacco cessation counselling done DVT and GI prophylaxis with Lovenox and Pepcid Subjective Date of service: 08/12/17 Principal diagnosis: COPD exercenbation, Pneumonia Interval history: Still vomiting despite being on NPO. Coughing with pleuritic chest pain getting better. Objective - Constitutional Vitals: Vital Signs - 12hr 08/12/17 08/12/17 04:44 08:04 Temperature 98.4 F 98.5 F Pulse Rate 84 101 H Respiratory 18 18 Rate Blood Pressure 138/67 127/78 O2 Sat by Pulse 94 82 L Oximetry General appearance: Present: no acute distress, well-nourished - EENT Eyes: PERRL, EOM intact Ears: bilateral: normal - Neck Neck: supple, normal ROM - Respiratory Respiratory effort: normal - Breasts Breasts: normal - Cardiovascular Rhythm: regular Heart Sounds: Present: S1 & S2. Absent: gallop, rub Extremities: pulses intact, No edema, normal color, Full ROM - Gastrointestinal General gastrointestinal: Present: soft, non-tender, non-distended, normal bowel sounds - Integumentary Integumentary: clear, warm, dry - Musculoskeletal Musculoskeletal: 1, strength equal bilaterally - Neurologic Neurologic: moves all extremities - Psychiatric Psychiatric: memory intact, appropriate mood/affect, intact judgment & insight - Labs CBC & Chem 7: 08/13/17 04:24 08/13/17 04:24 Labs: Abnormal lab results 08/12/17 08/12/17 Range/Units 04:12 04:12 Seg Neutrophils % 79.9 H (40.0-70.0) % Seg Neutrophils # 8.6 H (1.8-7.7) K/mm3 Sodium 135 L (137-145) mmol/L Potassium 5.1 H (3.6-5.0) mmol/L Chloride 91.1 L (98-107) mmol/L Glucose 158 H (65-100) mg/dL Total Protein 8.9 H (6.3-8.2) g/dL
[2017-08-12] MEDS: MIRALAX 3350 PO SCH (10:11)
[2017-08-12] MEDS: ZITHROMAX 500 MG in NACL 0.9% 250ML 250 ML IV SCH (10:43)
[2017-08-12] MEDS: BROVANA NEBU IH SCH ×2 (11:08→19:59)
[2017-08-12] MEDS: PULMICORT IH SCH ×2 (11:09→19:59)
[2017-08-12] MEDS ORDERED: BENADRYL IV PRN (11:15)
[2017-08-12] MEDS ORDERED: PHENERGAN PO PRN (12:26)
[2017-08-12] MEDS ORDERED: AMBIEN PO PRN (12:26)
--- NOTE | 2017-08-12 12:30 | Consultation ---
History of Present Illness Consult date: 08/12/17 Requesting physician: MITCHELL GUEVARA Chief complaint: abdominal pain, nausea - History of present illness History of present illness: 67 yo F with a hx of cirrhosis, COPD, chronic abdominal pain and myalgias, HepC presented to hospital with multiple complaints for the last 1 week. She c/o headache, right sided abdominal pain, myalgias, nausea, cough with productive sputum. She cannot characterize the abdominal pain but states it is similar to her pains from liver cirrhosis. She also did have one episode of clear emesis this am. She denies fever. She is hungry. She sometimes has episodes of nausea at home and takes phenergan for this with good nausea control. Patient also states she has a long standing history of severe constipation. She usually has a BM once every 2 weeks and does not remember the last time she had one. She is passing flatus. She has not followed up with her GI at [place] in several years. Past History Past Medical History: COPD, hepatitis (hep C), liver disease (Liver cirrhosis), other (anxiety disorder) Past Surgical History: cholecystectomy, total knee replacement Social history: , lives with family, smoking, alcohol abuse, IV drug use (history of IVDA), other (crack (smoking) - last use several days ago) Family history: no significant family history Medications and Allergies Allergies Allergy/AdvReac Type Severity Reaction Status Date / Time Iodinated Contrast- Oral and Allergy Itching Verified 09/19/16 16:17 IV Dye [Iodinated Contrast Media - IV Dye] ivp dye Allergy Itching Uncoded 09/19/16 16:17 Home Medications Medication Instructions Recorded Confirmed Last Taken Type QUEtiapine [Seroquel] 400 mg PO QHS 08/27/13 08/10/17 08/08/17 18:45 History 400mg Disulfiram (Nf) [Antabuse (Nf)] 250 mg PO DAILY 10/13/13 08/10/17 08/08/17 18: 45 History Loratadine [Claritin] 10 mg PO DAILY PRN 12/04/13 08/09/17 11/27/16 18:45 History Promethazine [Phenergan TAB] 25 mg PO BID PRN 12/04/13 08/10/17 08/08/17 09:00 History 25mg Ranitidine HCl [Zantac] 150 mg PO QDAY 12/04/13 08/10/17 08/08/17 18:45 History 150mg Arformoterol Nebu [Brovana Nebu] 15 mcg IH Q12HRT #60 ml 09/06/16 08/09/1711/27 18:45 Rx ALPRAZolam [Xanax TAB] 0.5 mg PO DAILY 08/10/17 08/10/17 08/08/17 09:00 History 0.5mg Cetirizine HCl [ZyrTEC] 10 mg PO DAILY 08/10/17 08/10/17 08/08/17 09:00 History 10mg Donepezil [Aricept] 5 mg PO QHS 08/10/17 08/10/17 08/08/17 18:45 History 5mg Famotidine [Pepcid] 20 mg PO BID PRN 08/10/17 08/09/17 Unknown History Gabapentin [Neurontin] 300 mg PO BID PRN 08/10/17 08/10/17 08/08/17 18:45 History 300mg Gemfibrozil [Lopid] 600 mg PO BID 08/10/17 08/10/17 08/08/17 18:45 History 600mg HYDROcodone/APAP 5-325 [[place] 1 each PO Q6H PRN 08/10/17 08/10/17 08/07/17 18: 45 History 5-325 mg TAB] Ipratropium/Albuterol Sulfate 1 ampul IH Q6HRT PRN 08/10/17 08/09/17 Unknown History [DUONEB *Not for PRN Use*] Methocarbamol [Robaxin TAB] 750 mg PO BID PRN 08/10/17 08/09/17 Unknown History PARoxetine [Paxil] 40 mg PO DAILY 08/10/17 08/10/17 08/08/17 09:00 History 40mg Ropinirole HCl [Requip] 0.5 mg PO Q48HR 08/10/17 08/10/17 08/08/17 18:45 History 0.5mg Simvastatin [Zocor TAB] 20 mg PO QHS 08/10/17 08/10/17 08/08/17 09:00 History 20mg amLODIPine [Norvasc] 10 mg PO QDAY 08/10/17 08/10/17 Unknown History busPIRone [Buspar] 10 mg PO BID 08/10/17 08/10/17 08/08/17 18:45 History 10mg Active Meds: Active Medications Albuterol (Proventil) 2.5 mg IH Q4HRT PRN PRN Reason: Shortness Of Breath Last Admin: 08/10/17 16:10 Dose: 2.5 mg Arformoterol Tartrate (Brovana Nebu) 15 mcg IH Q12HRT [facility] Last Admin: 08/12/17 11:08 Dose: 15 mcg Bisacodyl (Dulcolax) 10 mg IN ONCE ONE Stop: 08/12/17 12:27 Budesonide (Pulmicort) 0.5 mg IH Q12HRT [facility] Last Admin: 08/12/17 11:09 Dose: 0.5 mg Diphenhydramine HCl (Benadryl) 25 mg IV Q6H PRN PRN Reason: Itching Last Admin: 08/12/17 11:25 Dose: 25 mg Guaifenesin (Guaifenesin Dm Syrup) 10 ml PO Q4H PRN PRN Reason: Cough Hydralazine HCl (Apresoline) 10 mg IV Q6HR PRN PRN Reason: Hypertension Last Admin: 08/11/17 11:34 Dose: 10 mg Azithromycin 500 mg/ Sodium (Chloride) 250 mls @ 250 mls/hr IV Q24HR ANGE Last Admin: 08/12/17 10:43 Dose: 250 mls/hr Ceftriaxone Sodium 1 gm/ (Sodium Chloride) 20 mls @ 20 mls/10 min IV Q24H ANGE PRN Reason: Protocol Last Admin: 08/11/17 15:35 Dose: 20 mls/10 min Dextrose/Sodium Chloride (D5/0.45ns) 1,000 mls @ 100 mls/hr IV DIRECT ANGE Last Admin: 08/11/17 11:48 Dose: 100 mls/hr Magnesium Hydroxide (Milk Of Magnesia) 30 ml PO ONCE ONE Stop: 08/12/17 12:28 Methylprednisolone Sodium Succinate (Solu-Medrol) 40 mg IV Q12HR [facility] Last Admin: 08/12/17 10:11 Dose: 40 mg Ondansetron HCl (Zofran) 4 mg IV Q6H PRN PRN Reason: Nausea And Vomiting Last Admin: 08/11/17 16:36 Dose: 4 mg Promethazine HCl (Phenergan) 12.5 mg PO Q6H PRN PRN Reason: Nausea And Vomiting Tramadol HCl (Ultram) 50 mg PO Q8H PRN PRN Reason: Pain, Moderate (4-6) Last Admin: 08/12/17 05:37 Dose: 50 mg Zolpidem Tartrate (Ambien) 5 mg PO QHS PRN PRN Reason: Sleep Review of Systems All systems: negative (see hpi) Exam Vital Signs Temp Pulse Resp BP Pulse Ox 98.3 F 100 H 16 131/85 96 08/09/17 16:13 08/09/17 16:13 08/09/17 16:13 08/09/17 16:13 08/09/17 16:13 Narrative exam: Gen: AAOx3. NAD CV: s1, S2+ Resp: CTAB, no w/w/r Abd: soft, ND, mildly tender in RUQ and epigastrum. No r/r/g. +bowel sounds in all 4 quadrants. Ext: No c/c/e Results - Labs 08/12/17 04:12 08/12/17 04:12 Abnormal lab results 08/12/17 08/12/17 Range/Units 04:12 04:12 Seg Neutrophils % 79.9 H (40.0-70.0) % Seg Neutrophils # 8.6 H (1.8-7.7) K/mm3 Sodium 135 L (137-145) mmol/L Potassium 5.1 H (3.6-5.0) mmol/L Chloride 91.1 L (98-107) mmol/L Glucose 158 H (65-100) mg/dL Total Protein 8.9 H (6.3-8.2) g/dL Diabetes panel 08/12/17 Range/Units 04:12 Sodium 135 L (137-145) mmol/L Potassium 5.1 H (3.6-5.0) mmol/L Chloride 91.1 L (98-107) mmol/L Carbon Dioxide 24 (22-30) mmol/L BUN 17 (7-17) mg/dL Creatinine 0.8 (0.7-1.2) mg/dL Glucose 158 H (65-100) mg/dL Calcium 9.9 (8.4-10.2) mg/dL AST 21 (5-40) units/L ALT 25 (7-56) units/L Alkaline Phosphatase 113 (35-129) units/L Total Protein 8.9 H (6.3-8.2) g/dL Albumin 4.4 (3.9-5) g/dL Calcium panel 08/12/17 Range/Units 04:12 Calcium 9.9 (8.4-10.2) mg/dL Albumin 4.4 (3.9-5) g/dL Pituitary panel 08/12/17 Range/Units 04:12 Sodium 135 L (137-145) mmol/L Potassium 5.1 H (3.6-5.0) mmol/L Chloride 91.1 L (98-107) mmol/L Carbon Dioxide 24 (22-30) mmol/L BUN 17 (7-17) mg/dL Creatinine 0.8 (0.7-1.2) mg/dL Glucose 158 H (65-100) mg/dL Calcium 9.9 (8.4-10.2) mg/dL Adrenal panel 08/12/17 Range/Units 04:12 Sodium 135 L (137-145) mmol/L Potassium 5.1 H (3.6-5.0) mmol/L Chloride 91.1 L (98-107) mmol/L Carbon Dioxide 24 (22-30) mmol/L BUN 17 (7-17) mg/dL Creatinine 0.8 (0.7-1.2) mg/dL Glucose 158 H (65-100) mg/dL Calcium 9.9 (8.4-10.2) mg/dL Total Bilirubin 0.60 (0.1-1.2) mg/dL AST 21 (5-40) units/L ALT 25 (7-56) units/L Alkaline Phosphatase 113 (35-129) units/L Total Protein 8.9 H (6.3-8.2) g/dL Albumin 4.4 (3.9-5) g/dL - Imaging Chest x-ray: report reviewed, image reviewed Abdominal x-ray: report reviewed, image reviewed (ileus) Assessment and Plan 67 yo F with 1. PNA 2. chronic constipation 3. opiod dependence 4. Ileus 5. chronic abdominal pain 6. hep C, cirrhosis 7. illicit drug use Plan: 1. start full liquids, adv to soft diet in am if tolerates 2. PO and IN bowel regimen 3. limit narcotics 4. c/w abx for PNA per 1' team 5. add phenergan PRN for nausea 6. will need GI follow up as outpatient d/w Dr. Guevara
[2017-08-12] MEDS ORDERED: MILK OF MAGNESIA PO ONE (13:00)
[2017-08-12] MEDS ORDERED: DULCOLAX PR ONE (13:00)
[2017-08-12] MEDS: cefTRIAXone 1 GM in NACL 0.9% 20 ML IV SCH (13:52)
[2017-08-13 05:28] LABS: Hematocrit 35.3 % (30.3-42.9); Hemoglobin 12.1 gm/dl (10.1-14.3); Mean Corpuscular HGB Conc 34 % (30-34); Mean Corpuscular Hemoglobin 31 pg (28-32); Mean Corpuscular Volume 92 fl (79-97); Platelet Count 294 K/mm3 (140-440); Red Blood Count 3.86 M/mm3 (3.65-5.03); Red Cell Distribution Width 14.4 % (13.2-15.2); White Blood Count 6.8 K/mm3 (4.5-11.0)
[2017-08-13 05:51] LABS: Albumin 3.4 g/dL (3.9-5); Albumin/Globulin Ratio 0.8 %; Alkaline Phosphatase 80 units/L (35-129); BUN/Creatinine Ratio 30; Blood Urea Nitrogen 18 mg/dL (7-17); Calcium 8.7 mg/dL (8.4-10.2); Carbon Dioxide 25 mmol/L (22-30); Chloride 94.2 mmol/L (98-107); Glucose 113 mg/dL (65-100); Sodium 133 mmol/L (137-145); Total Protein 7.5 g/dL (6.3-8.2)
[2017-08-13 06:23] LABS: Alanine Aminotransferase 26 units/L (7-56); Basophils % (Manual) 0 % (0.0-1.8); Blastocytes % (Manual) 0 %; Diff Status Complete; Eosinophils % (Manual) 0 % (0.0-4.3); Platelet Estimate Consistent w Auto
[2017-08-13 06:24] LABS: Anion Gap 19 mmol/L; Potassium 4.9 mmol/L (3.6-5.0)
--- NOTE | 2017-08-13 08:56 | Progress Note ---
Assessment and Plan - Right lower lobe pneumonia: from possible gram positive organism. Blood culture, sputum culture showed no growth so far. Continue with iv Azithromycin and Rocephin, Pnumonia and flu shot given. - COPD Exacerbation: continue with Duoneb, iv solumedrol, Pulmacort and iv antibiotic - Ileus: Improving. Tolerating clear liquids. Advance as tolerated. No more vomiting. Having bowel movements with bowel regimen per surgeon as her chronic constipation may be responsible for the ileus - Hyperkalemia. corrected - JUANITA/OHS: BIPAPA at night - Morbid obesity: dietary restriction advised - Tobacco use d/o: Tobacco cessation counselling done DVT and GI prophylaxis with Lovenox and Pepcid Subjective Date of service: 08/13/17 Principal diagnosis: COPD exercenbation, Pneumonia Interval history: No more vomiting. Still NPO. Coughing with pleuritic chest pain getting better. Objective - Constitutional Vitals: Vital Signs - 12hr 08/13/17 08:15 Temperature 98.3 F Pulse Rate 64 Respiratory 20 Rate Blood Pressure 154/67 [Left] O2 Sat by Pulse 95 Oximetry General appearance: Present: no acute distress, well-nourished - EENT Eyes: PERRL, EOM intact - Neck Neck: supple, normal ROM - Respiratory Respiratory effort: normal Respiratory: bilateral: CTA - Cardiovascular Rhythm: regular Heart Sounds: Present: S1 & S2. Absent: gallop, rub Extremities: pulses intact, No edema, normal color, Full ROM - Gastrointestinal General gastrointestinal: Present: soft, non-tender, non-distended, normal bowel sounds - Integumentary Integumentary: clear, warm, dry - Musculoskeletal Musculoskeletal: 1, strength equal bilaterally - Neurologic Neurologic: moves all extremities - Psychiatric Psychiatric: memory intact, appropriate mood/affect, intact judgment & insight - Labs CBC & Chem 7: 08/13/17 04:24 08/13/17 04:24 Labs: Abnormal lab results 08/13/17 08/13/17 Range/Units 04:24 04:24 Seg Neuts % (Manual) 90.0 H (40.0-70.0) % Lymphocytes % (Manual) 7.0 L (13.4-35.0) % Lymphocytes # (Manual) 0.5 L (1.2-5.4) K/mm3 Sodium 133 L (137-145) mmol/L Chloride 94.2 L (98-107) mmol/L BUN 18 H (7-17) mg/dL Creatinine 0.6 L (0.7-1.2) mg/dL Glucose 113 H (65-100) mg/dL Albumin 3.4 L (3.9-5) g/dL
[2017-08-13] MEDS: PULMICORT IH SCH ×2 (09:56→19:57)
[2017-08-13] MEDS: BROVANA NEBU IH SCH ×2 (09:56→19:57)
[2017-08-13] MEDS: ZITHROMAX 500 MG in NACL 0.9% 250ML 250 ML IV SCH (10:13)
[2017-08-13] MEDS: ULTRAM PO PRN ×2 (10:21→21:45)
--- NOTE | 2017-08-13 10:35 | Progress Note ---
Assessment and Plan 67 yo F with 1. PNA 2. chronic constipation 3. opiod dependence 4. Ileus 5. chronic abdominal pain 6. hep C, cirrhosis 7. illicit drug use Plan: 1. adv to Gi soft diet for lunch today 2. limit narcotics 3. c/w abx for PNA per 1' team 4. add phenergan PRN for nausea 5. will need GI follow up as outpatient 6. ok for dc from surgery [place] if tolerates diet Subjective Date of service: 08/13/17 Narrative: Pt seen and examined. No overnight events. Slept well. Pain is controlled. No n/ v. Tolerated full liquid diet. +multiple BMs and passing flatus. Objective Vital Signs - 12hr 08/13/17 08/13/17 08/13/17 08:15 10:00 10:21 Temperature 98.3 F Pulse Rate 64 88 Respiratory 20 18 Rate Respiratory 18 Rate [ Generalized] Blood Pressure 154/67 [Left] O2 Sat by Pulse 95 Oximetry - General physical appearance Narrative Exam: Gen: AAOx3. NAD CV: s1, S2+ Resp: No audible wheezes Abd: soft, ND, mild right sided TTP, no r/r/g Ext: no c/c/e - Labs 08/13/17 04:24 08/13/17 04:24 Diabetes panel 08/13/17 Range/Units 04:24 Sodium 133 L (137-145) mmol/L Potassium 4.9 (3.6-5.0) mmol/L Chloride 94.2 L (98-107) mmol/L Carbon Dioxide 25 (22-30) mmol/L BUN 18 H (7-17) mg/dL Creatinine 0.6 L (0.7-1.2) mg/dL Glucose 113 H (65-100) mg/dL Calcium 8.7 (8.4-10.2) mg/dL AST 24 (5-40) units/L ALT 26 (7-56) units/L Alkaline Phosphatase 80 (35-129) units/L Total Protein 7.5 (6.3-8.2) g/dL Albumin 3.4 L (3.9-5) g/dL Calcium panel 08/13/17 Range/Units 04:24 Calcium 8.7 (8.4-10.2) mg/dL Albumin 3.4 L (3.9-5) g/dL Pituitary panel 08/13/17 Range/Units 04:24 Sodium 133 L (137-145) mmol/L Potassium 4.9 (3.6-5.0) mmol/L Chloride 94.2 L (98-107) mmol/L Carbon Dioxide 25 (22-30) mmol/L BUN 18 H (7-17) mg/dL Creatinine 0.6 L (0.7-1.2) mg/dL Glucose 113 H (65-100) mg/dL Calcium 8.7 (8.4-10.2) mg/dL Adrenal panel 08/13/17 Range/Units 04:24 Sodium 133 L (137-145) mmol/L Potassium 4.9 (3.6-5.0) mmol/L Chloride 94.2 L (98-107) mmol/L Carbon Dioxide 25 (22-30) mmol/L BUN 18 H (7-17) mg/dL Creatinine 0.6 L (0.7-1.2) mg/dL Glucose 113 H (65-100) mg/dL Calcium 8.7 (8.4-10.2) mg/dL Total Bilirubin 0.40 (0.1-1.2) mg/dL AST 24 (5-40) units/L ALT 26 (7-56) units/L Alkaline Phosphatase 80 (35-129) units/L Total Protein 7.5 (6.3-8.2) g/dL Albumin 3.4 L (3.9-5) g/dL
[2017-08-14 07:48] VITALS: BP 125/75
[2017-08-14] MEDS: ULTRAM PO PRN (09:58)
[2017-08-14] MEDS ORDERED: ZITHROMAX PO SCH (10:00)
[2017-08-14] MEDS: ZITHROMAX 500 MG in NACL 0.9% 250ML 250 ML IV SCH (10:01)
--- NOTE | 2017-08-14 15:01 | Discharge Summary ---
Providers - Providers Date of Admission: 08/10/17 03:15 Date of discharge: 08/14/17 Attending physician: MITCHELL GUEVARA 08/12/17 09:42 Consult to Physician [CONS] Routine Consulting Provider: LILLIAM GUTIERREZ Reason For Exam: Ilues with recurrent vomiting Place consult to:: [place] Notified:: PLEASE CALL MD IN AM Was contact made?: No Primary care physician: [employer]PERATOR Hospitalization Reason for admission: Pneumonia, Ileus Condition: Stable Pertinent studies: X-ray of abdomen: showed ileus CXR: showed right lobar pneumonia Procedures: none Hospital course: Patient is a 67 y/o lady who harley s a history of COPD, Hepatitis C, and liver Cirrhosis presented with a history of cough and progressive weakness for one week. Cough was was productive of whitish sputum. Had fever with nausea and vomiting.Blood and sputum culture were obtained. Used bronchodilators at home with no success for which she presented to the ED. Had abdominal pain for which an xray of the abdomen was obtained. Finding were remarkable for ileus. she was place on NPO and iV fluid. commence on graded oral feeding vomiting stopped. Surgical consult was obtained. Recommend graded oral feeding and bowel regimens as pt has chronic constip[ation. Pt started having regular bowel movement and tolerated grade oral feeing. Cough, Fever and abdominals pain resolved. Pt is therefore being discharged to f/u with PCP in 3-5 days Disposition: DC-01 TO HOME OR SELFCARE Time spent for discharge: 36 mins Core Measure Documentation - Palliative Care Palliative Care/ Comfort Measures: Not Applicable - Core Measures Any of the following diagnoses?: none Exam - Constitutional Vitals: Temp Pulse Resp BP Pulse Ox 98.8 F 98 H 20 125/75 91 08/14/17 07:17 08/14/17 10:00 08/14/17 07:17 08/14/17 07:17 08/14/17 07:17 General appearance: Present: no acute distress, well-nourished - EENT Eyes: Present: PERRL - Neck Neck: Present: supple, normal ROM - Respiratory Respiratory effort: normal Respiratory: bilateral: diminished - Cardiovascular Heart Sounds: Present: S1 & S2. Absent: rub, click - Extremities Extremities: pulses symmetrical, No edema Peripheral Pulses: within normal limits - Abdominal General gastrointestinal: Present: soft, non-tender, non-distended, normal bowel sounds Female genitourinary: Present: normal - Integumentary Integumentary: Present: clear, warm, dry - Musculoskeletal Musculoskeletal: gait normal, strength equal bilaterally - Psychiatric Psychiatric: appropriate mood/affect, intact judgment & insight - Neurologic Neurologic: CNII-XII intact, moves all extremities Plan Activity: advance as tolerated, fall precautions Weight Bearing Status: Weight Bear as Tolerated Diet: low cholesterol Durable Medical Equipment Needed Upon Discharge: Cane Follow up with: PRIMARY CARE, [Primary Care Provider] - 3-5 Days Prescriptions: ALBUTEROL NEB's [Proventil 0.083% NEBS] 2.5 mg IH Q4HRT PRN #100 nebu PRN Reason: Shortness Of Breath ALPRAZolam [Xanax TAB] 0.5 mg PO DAILY #30 tablet amLODIPine [Norvasc] 10 mg PO QDAY #30 tablet Arformoterol Nebu [Brovana Nebu] 15 mcg IH Q12HRT #60 ml Azithromycin [Zithromax TAB] 500 mg PO QDAY #5 tablet Budesonide [Pulmicort Respules] 0.5 mg IH Q12HRT #60 nebu Gabapentin [Neurontin] 300 mg PO BID PRN #60 capsule PRN Reason: Pain Gemfibrozil [Lopid] 600 mg PO BID #60 tablet PARoxetine [Paxil] 40 mg PO DAILY #30 tablet Ropinirole HCl [Requip] 0.5 mg PO Q48HR #30 tablet traMADol [Ultram 50 MG tab] 50 mg PO Q12H PRN #60 tablet PRN Reason: Pain, Moderate (4-6)
== END 2017-08-14 18:44 | disposition home or self-care (01) | DRG 388 ==
LOC: ED 15:41 → 2B-ACE 08-10 03:15
PROVIDERS: ADMIT Family Medicine; ATTEND Family Medicine
PROC: 5A09357 Assistance with Respiratory Ventilation, Less than 24 Consecutive Hours, Continuous Positive Airway Pressure (ICD-10-PCS; principal; 2017-08-10)
DX: K56.7 Ileus, unspecified (principal); J15.9 Unspecified bacterial pneumonia; J44.1 Chronic obstructive pulmonary disease with (acute) exacerbation; F11.20 Opioid dependence, uncomplicated; E66.01 Morbid (severe) obesity due to excess calories; K21.9 Gastro-esophageal reflux disease without esophagitis; B19.20 Unspecified viral hepatitis C without hepatic coma; F03.90 Unspecified dementia, unspecified severity, without behavioral disturbance, psychotic disturbance, mood disturbance, and anxiety; F17.210 Nicotine dependence, cigarettes, uncomplicated; M81.0 Age-related osteoporosis without current pathological fracture; K74.60 Unspecified cirrhosis of liver; M19.90 Unspecified osteoarthritis, unspecified site; Z96.659 Presence of unspecified artificial knee joint; G47.33 Obstructive sleep apnea (adult) (pediatric); F41.9 Anxiety disorder, unspecified; E87.5 Hyperkalemia; K59.00 Constipation, unspecified; G89.29 Other chronic pain; Z71.6 Tobacco abuse counseling; Z90.49 Acquired absence of other specified parts of digestive tract; Z79.899 Other long term (current) drug therapy; Z91.041 Radiographic dye allergy status; Z68.27 Body mass index [BMI] 27.0-27.9, adult
CPT/HCPCS: 36415; 71020; 74022; 80053; 81001; 82550; 82553; 83690; 83735; 83880; 84484; 85007; 85025; 87040; 87070; 87205; 90471; 90686; 90732; 93005; 93010; 94640; 94660; 94760; 99285; 99406; G0008; G0009; J0360; J0456; J0696; J1200; J2405; J2920; J7050

== ENCOUNTER 2017-12-17 11:03 | Day surgery (SDC) | payer MEDICARE ==
[2017-12-17] MEDS ORDERED: WATER FOR IRRIG STERILE IR ONE (11:51)
[2017-12-17] MEDS ORDERED: WATER FOR IRRIG STERILE ONE (11:52)
--- NOTE | 2017-12-17 11:57 | Anesthesia Consultation ---
Anesthesia Consult and Med Hx Date of service: 12/17/17 - Airway Anesthetic Teeth Evaluation: Edentulous ROM Head & Neck: Adequate Mental/Hyoid Distance: Adequate Mallampati Class: Class II Intubation Access Assessment: Probably Good - Pulmonary Exam CTA: Yes - Cardiac Exam Cardiac Exam: RRR - Pre-Operative Health Status ASA Pre-Surgery Classification: ASA3 Proposed Anesthetic Plan: MAC - Pre-Anesthesia Comment Pre-Anesthesia Comments: 10/02 negative stress test- 78% EF - Pulmonary Hx Smoking: Yes (1/2 PPD X 50 YRS) SOB: Yes (SOB WITH ACTIVITY) COPD: Yes Home Oxygen Therapy: Yes (2L) Hx Sleep Apnea: Yes ( NO CPAP USE) - Cardiovascular System Hx Hypertension: Yes - Central Nervous System CVA: Yes (left side weakness) Hx Back Pain: Yes - Gastrointestinal Hx Ulcer: Yes Hx Gastroesophageal Reflux Disease: Yes - Endocrine Hx Cirrhosis: Yes Hx Liver Disease: Yes (HEP C) - Other Systems Hx Alcohol Use: Yes (ETOH ABUSE- PT STATES STILL DRINKS "A LITTLE") Hx Substance Use: Yes (HX COCAINE ABUSE-STOPPED X 8 YRS)
--- NOTE | 2017-12-17 11:59 | Anesthesia Day of Surgery ---
Anesthesia Day of Surgery - Day of Surgery Patient Examined: Yes Patient H&P Reviewed: Yes Patient is NPO: Yes
[2017-12-17] MEDS ORDERED: NACL 0.9% 1000 ML 1,000 ML IV SCH (12:00)
[2017-12-17] MEDS ORDERED: KETALAR ONE (12:03)
[2017-12-17] MEDS ORDERED: DIPRIVAN 10 MG/ML IV ONE ×2 (12:04)
--- NOTE | 2017-12-17 12:34 | Post Operative Note ---
Pre-op diagnosis: cirrhosis, abdominal pain, surveillance colonoscopy Post-op diagnosis: other (EGD: hiatal hernia, Colonoscopy: poor prep) Findings: EGD: hiatal hernia, otherwise unremarkable Colonoscopy: poor prep to cecum, however no obvious mass or significant lesions Procedure: EGD + Colonoscopy Anesthesia: MAC Surgeon: TYRELL LOCKWOOD Estimated blood loss: none Pathology: none Condition: stable Disposition: same day
--- NOTE | 2017-12-17 12:42 | Operative Report ---
Operative Report Operative Report: Esophagogastroduodenoscopy Procedure Note Date of procedure: 12/17/2017 Endoscopist: Guido Briscoe Pre-op diagnosis: cirrhosis, varices screening, abdominal pain Post-op diagnosis: hiatal hernia, otherwise no significant findings Anesthesia: MAC Complications: No immediate complications Estimated blood loss: none Procedure: After consent was obtained, the patient was placed in the left lateral decubitus position. The fujinon endoscope was inserted into the patient 's mouth under direct vision, and advanced to the 2nd portion of duodenum without difficulty. The patient tolerated the procedure fair. The views of the mucosa were fair. Patient's vital signs were monitored continuously throughout the procedure. Findings: There was a moderate sized hiatal hernia. Otherwise, the esophagus appeared normal. The stomach appeared normal. The duodenum appeared normal. Impression: 1. Hiatal hernia, otherwise unremarkable upper endoscopy. Recommendations: -colonoscopy to follow
--- NOTE | 2017-12-17 12:46 | Operative Report ---
Operative Report Operative Report: Colonoscopy Procedure Note Date of procedure: 12/17/2017 Endoscopist: Guido Briscoe Pre-op diagnosis: personal history of colon polyps, abdominal pain Post-op diagnosis: poor prep, no significant mass or obvious lesions Anesthesia: MAC Complications: No immediate complications Estimated blood loss: none Procedure: After consent was obtained, the patient was placed in the left lateral decubitus position. The fujinon colonoscope was inserted into the patient's rectum under direct vision, and advanced to the cecum without difficulty. The patient tolerated the procedure well. The quality of prep was poor (semi-liquid stool throughout the colon with areas/segments of solid stool) . Findings: Poor prep, however no obvious colon mass or significant lesions visualized. Detailed exam/visualization was limited due to prep however. Impression: 1. Poor prep, however no significant mass or obvious lesions detected. Recommendations: -return to GI clinic as scheduled -repeat colonoscopy for personal history of polyps in 1-2 years (given poor prep )
[2017-12-17 13:21] VITALS: BP 113/70
== END 2017-12-17 11:04 | disposition home or self-care (01) ==
LOC: GIO 11:03
PROVIDERS: ATTEND Internal Medicine Gastroenterology
DX: K74.60 Unspecified cirrhosis of liver (principal); K44.9 Diaphragmatic hernia without obstruction or gangrene; K21.9 Gastro-esophageal reflux disease without esophagitis; J44.9 Chronic obstructive pulmonary disease, unspecified; I10 Essential (primary) hypertension; I69.954 Hemiplegia and hemiparesis following unspecified cerebrovascular disease affecting left non-dominant side; B19.20 Unspecified viral hepatitis C without hepatic coma; F17.210 Nicotine dependence, cigarettes, uncomplicated; Z99.89 Dependence on other enabling machines and devices; Z86.010 Personal history of colon polyps; Z99.81 Dependence on supplemental oxygen
CPT/HCPCS: 43235; 45378; J2704; J7030

== ENCOUNTER 2018-03-16 12:01 | Emergency (ER) | payer MEDICARE ==
[2018-03-16] MEDS ORDERED: ATROVENT IH ONE (12:30)
[2018-03-16] MEDS ORDERED: PROVENTIL IH ONE (12:30)
--- NOTE | 2018-03-16 12:36 | Emergency Department Report ---
ED Shortness of Breath HPI - General Chief Complaint: Dyspnea/Respdistress Stated Complaint: MECCA Time Seen by Provider: 03/16/18 12:17 Source: patient, EMS Mode of arrival: Stretcher Limitations: No Limitations - History of Present Illness Initial Comments: Ms. Hess is a 67-year-old female with history of COPD and tobacco abuse who presents with shortness of breath, productive cough for 4-5 days. She also has a history of hypertension cirrhosis hepatitis C. She says her "lungs hurt". She has generalized malaise. She has poor appetite. She denies abdominal pain. MD Complaint: shortness of breath, cough -: Gradual, days(s) (5-6) Severity: moderate Quality: aching, other ("my lungs hurt.") Improves With: nothing Worsens With: nothing Known History Of: COPD, other (tobacco abuse) - Related Data Home Medications Medication Instructions Recorded Confirmed Last Taken Disulfiram (Nf) [Antabuse (Nf)] 250 mg PO DAILY 10/13/13 12/17/17 1 Day Ago ~10/05/17 Famotidine [Pepcid] 20 mg PO BID PRN 08/10/17 12/17/17 1 Day Ago ~10/05/17 Advil 100 MG tab 1 tab PO BID 12/17/17 12/17/17 12/16/17 Previous Rx's Medication Instructions Recorded Last Taken Type Arformoterol Nebu [Brovana Nebu] 15 mcg IH Q12HRT #60 ml 09/06/16 1 Day Ago Rx ~10/05/17 ALBUTEROL NEB's [Proventil 0.083% 2.5 mg IH Q4HRT PRN #100 nebu 10/08/17 Rx NEBS] ALPRAZolam [Xanax TAB] 1 mg PO BID #60 tablet 10/08/17 Unknown Rx Arformoterol Nebu [Brovana Nebu] 15 mcg IH Q12HRT #60 ml 10/08/17 Unknown Rx Budesonide [Pulmicort Respules] 0.5 mg IH Q12HRT #60 nebu 10/08/17 Unknown Rx Donepezil [Aricept] 10 mg PO QHS #30 tablet 10/08/17 Unknown Rx Gabapentin [Neurontin] 300 mg PO BID PRN #60 capsule 10/08/17 Unknown Rx Ipratropium/Albuterol Sulfate 1 ampul IH Q6HRT PRN #100 ampul.neb 10/08/17 Unknown Rx [DUONEB *Not for PRN Use*] Loratadine [Claritin] 10 mg PO DAILY tablet 10/08/17 Unknown Rx PARoxetine [Paxil] 40 mg PO DAILY #30 tablet 10/08/17 Unknown Rx Quetiapine Fumarate [Seroquel] 400 mg PO HS #30 tablet 10/08/17 Unknown Rx Ropinirole HCl [Requip] 0.5 mg PO HS #30 tablet 10/08/17 Unknown Rx Simvastatin [Zocor] 20 mg PO DAILY 2 Days #30 tablet 10/08/17 Unknown Rx amLODIPine [Norvasc] 10 mg PO QDAY #30 tablet 10/08/17 Unknown Rx busPIRone [Buspar] 10 mg PO BID #60 tablet 10/08/17 Unknown Rx traMADol [Ultram 50 MG tab] 100 mg PO Q6HR PRN #24 tablet 10/08/17 12/16/17 Rx Levofloxacin [Levaquin TAB] 500 mg PO DAILY 7 Days #7 tablet 03/16/18 Unknown Rx predniSONE [Deltasone] 3 tab PO QDAY 5 Days #15 tab 03/16/18 Unknown Rx Allergies Allergy/AdvReac Type Severity Reaction Status Date / Time Iodinated Contrast- Oral and Allergy Itching Verified 10/05/17 08:23 IV Dye [Iodinated Contrast Media - IV Dye] ivp dye Allergy Itching Uncoded 10/05/17 08:23 ED Review of Systems ROS: Stated complaint: MECCA Other details as noted in HPI Comment: All other systems reviewed and negative Constitutional: malaise. denies: fever Respiratory: cough Cardiovascular: denies: chest pain ED Past Medical Hx - Past Medical History Previous Medical History?: Yes Hx Hypertension: Yes Hx GERD: Yes Hx Liver Disease: Yes (HEP C) Hx Arthritis: Yes Hx Psychiatric Treatment: Yes Hx COPD: Yes Hx Dementia: Yes (POOR MEMORY , ON MEDS) Additional medical history: osteoporosis, sleep apnea/cpap @ night, Home O2-3L, emphysema - Surgical History Past Surgical History?: Yes Hx Cholecystectomy: Yes Additional Surgical History: thyroid surg t&a - Social History Smoking Status: Current Every Day Smoker - Medications Home Medications: Home Medications Medication Instructions Recorded Confirmed Last Taken Type Disulfiram (Nf) [Antabuse (Nf)] 250 mg PO DAILY 10/13/13 12/17/17 1 Day Ago History ~10/05/17 Arformoterol Nebu [Brovana Nebu] 15 mcg IH Q12HRT #60 ml 09/06/16 12/17/17 1 Day Ago Rx ~10/05/17 Famotidine [Pepcid] 20 mg PO BID PRN 08/10/17 12/17/17 1 Day Ago History ~10/05/17 ALBUTEROL NEB's [Proventil 0.083% 2.5 mg IH Q4HRT PRN #100 nebu 10/08/1712/15/17 Rx NEBS] ALPRAZolam [Xanax TAB] 1 mg PO BID #60 tablet 10/08/17 12/17/17 Unknown Rx Arformoterol Nebu [Brovana Nebu] 15 mcg IH Q12HRT #60 ml 10/08/17 12/17/17 Unknown Rx Budesonide [Pulmicort Respules] 0.5 mg IH Q12HRT #60 nebu 10/08/17 12/17/17 Unknown Rx Donepezil [Aricept] 10 mg PO QHS #30 tablet 10/08/17 12/17/17 Unknown Rx Gabapentin [Neurontin] 300 mg PO BID PRN #60 capsule 10/08/17 12/17/17 Unknown Rx Ipratropium/Albuterol Sulfate 1 ampul IH Q6HRT PRN #100 ampul.neb 10/08/1712/17 Unknown Rx [DUONEB *Not for PRN Use*] Loratadine [Claritin] 10 mg PO DAILY tablet 10/08/17 12/17/17 Unknown Rx PARoxetine [Paxil] 40 mg PO DAILY #30 tablet 10/08/17 12/17/17 Unknown Rx Quetiapine Fumarate [Seroquel] 400 mg PO HS #30 tablet 10/08/17 12/17/17 Unknown Rx Ropinirole HCl [Requip] 0.5 mg PO HS #30 tablet 10/08/17 12/17/17 Unknown Rx Simvastatin [Zocor] 20 mg PO DAILY 2 Days #30 tablet 10/08/17 12/17/17 Unknown Rx amLODIPine [Norvasc] 10 mg PO QDAY #30 tablet 10/08/17 12/17/17 Unknown Rx busPIRone [Buspar] 10 mg PO BID #60 tablet 10/08/17 12/17/17 Unknown Rx traMADol [Ultram 50 MG tab] 100 mg PO Q6HR PRN #24 tablet 10/08/17 12/17/1711/30 Rx Advil 100 MG tab 1 tab PO BID 12/17/17 12/17/17 12/16/17 History Levofloxacin [Levaquin TAB] 500 mg PO DAILY 7 Days #7 tablet 03/16/18 Unknown Rx predniSONE [Deltasone] 3 tab PO QDAY 5 Days #15 tab 03/16/18 Unknown Rx ED Physical Exam - General Limitations: No Limitations General appearance: alert, in no apparent distress - Head Head exam: Present: atraumatic, normocephalic - Eye Eye exam: Present: normal appearance - ENT ENT exam: Present: mucous membranes moist - Neck Neck exam: Present: normal inspection - Respiratory Respiratory exam: Present: wheezes, rales, rhonchi, prolonged expiratory. Absent: respiratory distress, stridor - Cardiovascular Cardiovascular Exam: Present: regular rate, normal rhythm, normal heart sounds. Absent: bradycardia, tachycardia, systolic murmur, diastolic murmur, rubs, gallop - GI/Abdominal GI/Abdominal exam: Present: soft, normal bowel sounds. Absent: distended, tenderness, guarding, rebound - Extremities Exam Extremities exam: Present: normal inspection - Back Exam Back exam: Present: normal inspection - Neurological Exam Neurological exam: Present: alert, oriented X3 - Psychiatric Psychiatric exam: Present: normal affect, normal mood - Skin Skin exam: Present: warm, dry, intact, normal color. Absent: rash ED Course Vital Signs 03/16/18 12:21 Temperature 98.5 F Pulse Rate 75 Respiratory 15 Rate Blood Pressure 117/82 O2 Sat by Pulse 98 Oximetry ED Medical Decision Making - Lab Data Result diagrams: 03/16/18 12:38 03/16/18 12:38 - EKG Data -: EKG Interpreted by Ok EKG shows normal: sinus rhythm, axis, intervals, QRS complexes, ST-T waves Rate: normal - EKG Data 03/16/18 12:35 NSR nl rate nl axis nl intervals no ST-T signs of ischemia no ST elevation rate 75 beats a minute - Radiology Data Radiology results: report reviewed No acute process no infiltrate and no pneumothorax - Medical Decision Making Ms. Hess presents with mild COPD exacerbation. I have prescribed prednisone and Levaquin. She had a full meal here in the ED. Critical care attestation.: If time is entered above; I have spent that time in minutes in the direct care of this critically ill patient, excluding procedure time. ED Disposition Clinical Impression: COPD exacerbation Disposition: - TO HOME OR SELFCARE Is pt being admited?: No Does the pt Need Aspirin: No Condition: Stable Instructions: Chronic Bronchitis (ED) Prescriptions: Levofloxacin [Levaquin TAB] 500 mg PO DAILY 7 Days #7 tablet predniSONE [Deltasone] 3 tab PO QDAY 5 Days #15 tab Referrals: PRIMARY CARE, [Primary Care Provider] - 3-5 Days Time of Disposition: 14:02
[2018-03-16 13:06] LABS: Basophils # (Auto) 0.1 K/mm3 (0.0-0.1); Basophils % (Auto) 1.2 % (0.0-1.8); Eosinophils # (Auto) 0.2 K/mm3 (0.0-0.4); Hematocrit 32.4 % (30.3-42.9); Hemoglobin 11.4 gm/dl (10.1-14.3); Lymphocytes # (Auto) 1.5 K/mm3 (1.2-5.4); Lymphocytes % (Auto) 29.5 % (13.4-35.0); Mean Corpuscular HGB Conc 35 % (30-34); Mean Corpuscular Hemoglobin 33 pg (28-32); Mean Corpuscular Volume 93 fl (79-97); Monocytes # (Auto) 0.6 K/mm3 (0.0-0.8); Monocytes % (Auto) 12.3 % (0.0-7.3); Platelet Count 245 K/mm3 (140-440); Red Blood Count 3.46 M/mm3 (3.65-5.03); Red Cell Distribution Width 13.3 % (13.2-15.2)
--- NOTE | 2018-03-16 13:15 | XRay Report ---
AP CHEST: HISTORY: Dyspnea AP view of the chest demonstrates a normal mediastinal and cardiac contour with clear lungs and normal bony and soft tissue structures. IMPRESSION: Unremarkable AP chest.
[2018-03-16 13:22] LABS: Alanine Aminotransferase 8 units/L (7-56); Albumin 3.5 g/dL (3.9-5); BUN/Creatinine Ratio 12; Blood Urea Nitrogen 6 mg/dL (7-17); Calcium 8.9 mg/dL (8.4-10.2); Hemolysis Index 14
[2018-03-16 14:40] LABS: Bilirubin,Urine NEG (Negative); Blood,Urine NEG (Negative); Color,Urine Yellow (Yellow); Protein,Urine <15 mg/dL mg/dL (Negative); WBC,Urine < 1.0 /HPF (0.0-6.0)
[2018-03-16 14:45] VITALS: BP 111/60
== END 2018-03-16 14:46 | disposition home or self-care (01) ==
LOC: ED 12:01
DX: J44.1 Chronic obstructive pulmonary disease with (acute) exacerbation (principal); I10 Essential (primary) hypertension; K21.9 Gastro-esophageal reflux disease without esophagitis; M19.90 Unspecified osteoarthritis, unspecified site; F03.90 Unspecified dementia, unspecified severity, without behavioral disturbance, psychotic disturbance, mood disturbance, and anxiety; F17.200 Nicotine dependence, unspecified, uncomplicated; Z90.49 Acquired absence of other specified parts of digestive tract; Z91.041 Radiographic dye allergy status; Z79.01 Long term (current) use of anticoagulants
CPT/HCPCS: 36415; 71045; 80053; 81001; 82140; 83735; 85025; 87040; 93005; 93010; 94640; 96374; 99285; J2930

== ENCOUNTER 2018-05-16 10:34 | Emergency (ER) | payer MEDICARE ==
--- NOTE | 2018-05-16 11:13 | Emergency Department Report ---
ED Fall HPI - General Chief Complaint: Fall Stated Complaint: RT SIDE PAIN Time Seen by Provider: 05/16/18 11:00 Source: patient, family, EMS Mode of arrival: Wheelchair - History of Present Illness Initial Comments: This is a 67-year-old female here report that she tripped over her dog's leash yesterday and fell and injured her right thigh, lower back and pelvic area. She is reporting pain 9 out 10 and achy. She also reports swelling to her right buttocks. Patient denies being dizzy or feeling off balance before falling. She says the fall was accidental. She says she took gibw-[id number]-[id number] pain medication but is not helping. Denies any head injury. Denies any loss of bowel or bladder function. Denies any numbness or tingling to her extremities. She says she fell on her right side and hit the concrete with her right hip, thigh and her lower back also hurts. MD Complaint: fall -: Last night Fall From: standing When Fall Occurred: other (yesterday ) Fall Witnessed: yes, by bystander Place Fall Occurred: street Loss of Consciousness: none Prolonged Down Time?: no Symptoms Prior to Fall: none Location: back (lower back), pelvis Location - Extremities: Right: Thigh Severity: severe Severity scale (0 -10): 9 Quality: aching Context: tripped/slipped Associated Symptoms: other (patient walks with a tripod which she usually does) . denies: headache, neck pain, numbness, weakness, chest paint, shortness of breath, abdominal pain, hematuria, unable to walk, lightheaded, vertigo, confusion - Related Data Home Medications Medication Instructions Recorded Confirmed Last Taken Disulfiram (Nf) [Antabuse (Nf)] 250 mg PO DAILY 10/13/13 12/17/17 1 Day Ago ~10/05/17 Famotidine [Pepcid] 20 mg PO BID PRN 08/10/17 12/17/17 1 Day Ago ~10/05/17 Advil 100 MG tab 1 tab PO BID 12/17/17 12/17/17 12/16/17 Previous Rx's Medication Instructions Recorded Last Taken Type Arformoterol Nebu [Brovana Nebu] 15 mcg IH Q12HRT #60 ml 09/06/16 1 Day Ago Rx ~10/05/17 ALBUTEROL NEB's [Proventil 0.083% 2.5 mg IH Q4HRT PRN #100 nebu 10/08/17 Rx NEBS] ALPRAZolam [Xanax TAB] 1 mg PO BID #60 tablet 10/08/17 Unknown Rx Arformoterol Nebu [Brovana Nebu] 15 mcg IH Q12HRT #60 ml 10/08/17 Unknown Rx Budesonide [Pulmicort Respules] 0.5 mg IH Q12HRT #60 nebu 10/08/17 Unknown Rx Donepezil [Aricept] 10 mg PO QHS #30 tablet 10/08/17 Unknown Rx Gabapentin [Neurontin] 300 mg PO BID PRN #60 capsule 10/08/17 Unknown Rx Ipratropium/Albuterol Sulfate 1 ampul IH Q6HRT PRN #100 ampul.neb 10/08/17 Unknown Rx [DUONEB *Not for PRN Use*] Loratadine [Claritin] 10 mg PO DAILY tablet 10/08/17 Unknown Rx PARoxetine [Paxil] 40 mg PO DAILY #30 tablet 10/08/17 Unknown Rx Quetiapine Fumarate [Seroquel] 400 mg PO HS #30 tablet 10/08/17 Unknown Rx Ropinirole HCl [Requip] 0.5 mg PO HS #30 tablet 10/08/17 Unknown Rx Simvastatin [Zocor] 20 mg PO DAILY 2 Days #30 tablet 10/08/17 Unknown Rx amLODIPine [Norvasc] 10 mg PO QDAY #30 tablet 10/08/17 Unknown Rx busPIRone [Buspar] 10 mg PO BID #60 tablet 10/08/17 Unknown Rx traMADol [Ultram 50 MG tab] 100 mg PO Q6HR PRN #24 tablet 10/08/17 12/16/17 Rx levoFLOXacin [Levaquin TAB] 500 mg PO DAILY 7 Days #7 tablet 03/16/18 Unknown Rx predniSONE [Deltasone] 3 tab PO QDAY 5 Days #15 tab 03/16/18 Unknown Rx Ibuprofen [Motrin] 600 mg PO Q8H PRN #12 tablet 05/16/18 Unknown Rx traMADol [Ultram 50 MG tab] 50 mg PO Q6HR PRN #20 tablet 05/16/18 Unknown Rx Allergies Allergy/AdvReac Type Severity Reaction Status Date / Time Iodinated Contrast- Oral and Allergy Itching Verified 10/05/17 08:23 IV Dye [Iodinated Contrast Media - IV Dye] ivp dye Allergy Itching Uncoded 10/05/17 08:23 ED Review of Systems ROS: Stated complaint: RT SIDE PAIN Other details as noted in HPI Constitutional: denies: chills, fever Eyes: denies: eye pain, eye discharge, vision change ENT: denies: ear pain, throat pain, congestion Respiratory: denies: cough, shortness of breath, SOB with exertion, SOB at rest , stridor, wheezing Cardiovascular: denies: chest pain, palpitations, edema, syncope Gastrointestinal: denies: abdominal pain, nausea, vomiting, diarrhea Genitourinary: denies: urgency, dysuria, frequency, hematuria, discharge Musculoskeletal: back pain, joint swelling, arthralgia Skin: denies: rash, lesions, pruritus Neurological: abnormal gait (chronic). denies: headache, weakness, paresthesias , vertigo Psychiatric: anxiety ED Past Medical Hx - Past Medical History Previous Medical History?: Yes Hx Hypertension: Yes Hx GERD: Yes Hx Liver Disease: Yes (HEP C) Hx Arthritis: Yes Hx Psychiatric Treatment: Yes Hx COPD: Yes Hx Dementia: Yes (POOR MEMORY , ON MEDS) Additional medical history: osteoporosis, sleep apnea/cpap @ night, Home O2-3L, emphysema - Surgical History Past Surgical History?: Yes Hx Cholecystectomy: Yes Additional Surgical History: thyroid surg t&a - Family History Family history: hypertension - Social History Smoking Status: Current Every Day Smoker Substance Use Type: Prescribed - Medications Home Medications: Home Medications Medication Instructions Recorded Confirmed Last Taken Type Disulfiram (Nf) [Antabuse (Nf)] 250 mg PO DAILY 10/13/13 12/17/17 1 Day Ago History ~10/05/17 Arformoterol Nebu [Brovana Nebu] 15 mcg IH Q12HRT #60 ml 09/06/16 12/17/17 1 Day Ago Rx ~10/05/17 Famotidine [Pepcid] 20 mg PO BID PRN 08/10/17 12/17/17 1 Day Ago History ~10/05/17 ALBUTEROL NEB's [Proventil 0.083% 2.5 mg IH Q4HRT PRN #100 nebu 10/08/1712/15/17 Rx NEBS] ALPRAZolam [Xanax TAB] 1 mg PO BID #60 tablet 10/08/17 12/17/17 Unknown Rx Arformoterol Nebu [Brovana Nebu] 15 mcg IH Q12HRT #60 ml 10/08/17 12/17/17 Unknown Rx Budesonide [Pulmicort Respules] 0.5 mg IH Q12HRT #60 nebu 10/08/17 12/17/17 Unknown Rx Donepezil [Aricept] 10 mg PO QHS #30 tablet 10/08/17 12/17/17 Unknown Rx Gabapentin [Neurontin] 300 mg PO BID PRN #60 capsule 10/08/17 12/17/17 Unknown Rx Ipratropium/Albuterol Sulfate 1 ampul IH Q6HRT PRN #100 ampul.neb 10/08/1712/17 Unknown Rx [DUONEB *Not for PRN Use*] Loratadine [Claritin] 10 mg PO DAILY tablet 10/08/17 12/17/17 Unknown Rx PARoxetine [Paxil] 40 mg PO DAILY #30 tablet 10/08/17 12/17/17 Unknown Rx Quetiapine Fumarate [Seroquel] 400 mg PO HS #30 tablet 10/08/17 12/17/17 Unknown Rx Ropinirole HCl [Requip] 0.5 mg PO HS #30 tablet 10/08/17 12/17/17 Unknown Rx Simvastatin [Zocor] 20 mg PO DAILY 2 Days #30 tablet 10/08/17 12/17/17 Unknown Rx amLODIPine [Norvasc] 10 mg PO QDAY #30 tablet 10/08/17 12/17/17 Unknown Rx busPIRone [Buspar] 10 mg PO BID #60 tablet 10/08/17 12/17/17 Unknown Rx traMADol [Ultram 50 MG tab] 100 mg PO Q6HR PRN #24 tablet 10/08/17 12/17/1711/30 Rx Advil 100 MG tab 1 tab PO BID 12/17/17 12/17/17 12/16/17 History levoFLOXacin [Levaquin TAB] 500 mg PO DAILY 7 Days #7 tablet 03/16/18 Unknown Rx predniSONE [Deltasone] 3 tab PO QDAY 5 Days #15 tab 03/16/18 Unknown Rx Ibuprofen [Motrin] 600 mg PO Q8H PRN #12 tablet 05/16/18 Unknown Rx traMADol [Ultram 50 MG tab] 50 mg PO Q6HR PRN #20 tablet 05/16/18 Unknown Rx ED Physical Exam - General Limitations: Physical Limitation General appearance: alert, in no apparent distress - Head Head exam: Present: atraumatic, normocephalic, normal inspection, other (normal exam) - Eye Eye exam: Present: normal appearance, PERRL, EOMI. Absent: nystagmus Pupils: Present: normal accommodation - ENT ENT exam: Present: normal exam, normal orophraynx, mucous membranes moist, TM's normal bilaterally, normal external ear exam - Neck Neck exam: Present: normal inspection, full ROM, other (no C-spine tenderness). Absent: tenderness, lymphadenopathy - Respiratory Respiratory exam: Present: normal lung sounds bilaterally. Absent: respiratory distress, chest wall tenderness - Cardiovascular Cardiovascular Exam: Present: regular rate, normal rhythm, normal heart sounds - GI/Abdominal GI/Abdominal exam: Present: soft, normal bowel sounds. Absent: tenderness, rigid, organomegaly - Extremities Exam Extremities exam: Present: normal inspection, full ROM (patient with full range of motion to all her extremities except she said she has pain with range of motion to right hip and lower back.), tenderness (tenderness to palpate the right proximal thigh with minimal subtle swelling to right buttocks), normal capillary refill, other (No cce. + 2 pulses in all extremities, no neurovascular compromise except she has pain with movement to the right proximal thigh and also tenderness to palpate. She has right hip pain. Swelling to right buttocks. No ecchymotic or bruising to skin.). Absent: pedal edema, joint swelling, calf tenderness - Expanded Lower Extremity Exam Right Hip exam: Present: normal inspection, full ROM (pain with range of motion.), tenderness, pelvic stability. Absent: swelling, abrasion, laceration, ecchymosis, deformity, crepidus, dislocation, erythema, external rotation, internal rotation, shortening Upper Leg exam: Present: normal inspection, full ROM (pain with palpation and range of motion), tenderness (proximal thigh, the lateral). Absent: swelling, abrasion, laceration, ecchymosis, deformity, crepidus, dislocation, erythema Knee exam: Present: normal inspection, full ROM, full knee extension. Absent: tenderness, swelling, abrasion, laceration, ecchymosis, deformity, crepidus, dislocation, erythema, effusion, pain w/ pronation/supination, posterior draw sign, pain/laxity with valgus, pain/laxity with varus Lower Leg exam: Present: normal inspection, full ROM. Absent: tenderness, swelling, abrasion, laceration, ecchymosis, deformity, crepidus, dislocation, erythema, palpable cord, Nancy's sign Ankle exam: Present: normal inspection, full ROM. Absent: tenderness, swelling , abrasion, laceration, ecchymosis, deformity, crepidus, dislocation, erythema, anterior draw sign Foot/Toe exam: Present: normal inspection, full ROM. Absent: tenderness, swelling, abrasion, laceration, ecchymosis, deformity, crepidus, dislocation, erythema, amputation, puncture wound, foreign body, calcaneal tenderness, tenderness at base of 5th metatarsal, nail avulsion, subungual hematoma Neuro vascular tendon exam: Present: no vascular compromise, motor deficit ( decreased motor function to right lower extremity patient uses a tripod but she says this is normal. Strength is 4/5), significant pain with passive ROM of distal joint. Absent: pulse deficit, abnormal cap refill, sensory deficit, tendon deficit, extremity cold to touch, pallor, abnormal 2-point discrimination , decreased fine/light touch, foot drop, peroneal nerve deficit Gait: Positive: observed and limited by pain - Back Exam Back exam: Present: normal inspection, full ROM, vertebral tenderness ( tenderness to palpate to lumbar vertebral spine), other (ambulance with a tripod ). Absent: tenderness, CVA tenderness (R), CVA tenderness (L), muscle spasm, paraspinal tenderness, rash noted - Neurological Exam Neurological exam: Present: alert, oriented X3, abnormal gait (due to pain and she is using a tripod), motor sensory deficit (4/5 strength to right lower extremity at hip), reflexes normal ( and thigh.) - Expanded Neurological Exam Expanded Neurological exam: Absent: innattentive, memory loss-remote event, memory loss- recent event, ataxia, receptive aphasia, expressive aphasia, total aphasia, tremor, protecting the airway Patient oriented to: Present: person, place, time Speech: Present: fluid speech Cranial nerves: EOM's Intact: Normal, Gag Reflex: Normal, Tongue Deviation: Normal, Nystagmus: Normal, Facial Sensation: Normal Cerebellar function: Finger to Nose: Normal, Romberg: Normal Upper motor neuron: Pronator Drift: Abnormal Right, Abnormal Left, Sensory Extinction: Normal Sensory exam: Upper Extremity Light Touch: Normal, Upper Extremity Temperature: Normal, UE 2 Point Discrimination: Normal, Lower Extremity Light Touch: Normal, Lower Extremity Temperature: Normal, LE 2 Point Discrimination: Normal Motor strength exam: RUE: 5, LUE: 5, RLE: 4, LLE: 5 Best Eye Response ([place]): (4) open spontaneously Best Motor Response (Tammy): (6) obeys commands Best Verbal Response (Tammy): (5) oriented [place] Total: 15 - Psychiatric Psychiatric exam: Present: normal affect, normal mood - Skin Skin exam: Present: warm, dry, intact, normal color. Absent: rash ED Course Vital Signs 05/16/18 05/16/18 05/16/18 10:40 12:13 12:14 Temperature 98.2 F Pulse Rate 87 Respiratory 17 20 20 Rate Blood Pressure 119/74 O2 Sat by Pulse 97 Oximetry - Reevaluation(s) Reevaluation #1: 05/16/18 13:27 Patient given Toradol 30 mg IM and Mesick 5/5 one tablet by mouth emergency room which she said helped her pain. - Orthopedic Splinting/Casting Injury #1 Side: right Other Orthopedic Equipment: walker Additional Comments: Patient given walker due to nondisplaced avulsion fracture per radiologist's that is suspicious. ED Medical Decision Making - Lab Data Lab Results 05/16/18 Range/Units 11:07 Urine Color Yellow (Yellow) Urine Turbidity Clear (Clear) Urine pH 6.0 (5.0-7.0) Ur Specific [place] 1.009 (1.003-1.030) Urine Protein <15 mg/dl (Negative) mg/dL Urine Glucose (UA) Neg (Negative) mg/dL Urine Ketones Neg (Negative) mg/dL Urine Blood Neg (Negative) Urine Nitrite Neg (Negative) Urine Bilirubin Neg (Negative) Urine Urobilinogen 2.0 (<2.0) mg/dL Ur Leukocyte Esterase Tr (Negative) Urine WBC (Auto) 2.0 (0.0-6.0) /HPF Urine RBC (Auto) 2.0 (0.0-6.0) /HPF U Epithel Cells (Auto) 1.0 (0-13.0) /HPF Urine culture pending - Radiology Data Radiology results: report reviewed X-ray of pelvis, right femur and lumbar sacral area dictated by radiologist report reviewed by myself. There is suspicion for nondisplaced fracture avulsion of the proximal right femur. Patient: RADHA NETTLES MR#: [id number] : 1950 Acct:[id number] Age/Sex: 67 / F ADM Date: 05/16/18 Loc: ED Attending Dr: Ordering Physician: CYNTHIA HERRERA Date of Service: 05/16/18 Procedure(s): XR pelvis 1-2V Accession Number(s): [id number] cc: CYNTHIA HERRERA Fluoro Time In Minutes: FINAL REPORT EXAM: XR PELVIS 1-2V HISTORY: fall with pain to both hips and pelvic area TECHNIQUE: One view of the pelvis PRIORS: Right femur 05/16/2018 FINDINGS: There is diffuse osseous demineralization which limits the examination. Arterial calcification is compatible with atherosclerosis. Multifocal degenerative change in the hips, pelvis, and lumbar spine. Nonspecific subtle transverse linear lucency is noted at the base the greater trochanter of the proximal right femur. This raises suspicion of a nondisplaced avulsion fracture. IMPRESSION: Suspicion raised of nondisplaced avulsion fracture at the base of the right greater trochanter Transcribed By: HETAL Dictated By: JACKLYN ROJAS MD Electronically Authenticated By: JACKLYN ROJAS MD Signed Date/Time: 05/16/18 1234 DD/ 1234 TD/TT: 05/16/18 1234 Findings [facility] [address] [place] [address] XRay Report Signed Patient: RADHA NETTLES MR#: [id number] : 1950 Acct:[id number] Age/Sex: 67 / F ADM Date: 05/16/18 Loc: ED Attending Dr: Ordering Physician: CYNTHIA HERRERA Date of Service: 05/16/18 Procedure(s): XR femur 2+V RT Accession Number(s): [id number] cc: CYNTHIA HERRERA Fluoro Time In Minutes: FINAL REPORT EXAM: XR FEMUR 2+V RT HISTORY: fall with pain to right thigh TECHNIQUE: 2 views of the right femur PRIORS: Pelvis radiograph 05/16/2018 and abdomen radiographs 08/09/2017 FINDINGS: Intact appearing right knee arthroplasty. There is diffuse osseous demineralization which limits the examination. Arterial calcification is compatible with atherosclerosis. Multifocal degenerative change in the right hip, pelvis, and lumbar spine. Nonspecific subtle transverse linear lucency is noted at the base the greater trochanter of the proximal right femur. This raises suspicion of a nondisplaced avulsion fracture. IMPRESSION: Suspicion raised of nondisplaced avulsion fracture at the base of the greater trochanter Transcribed By: HETAL Dictated By: JACKLYN ROJAS MD Electronically Authenticated By: JACKLYN ROJAS MD Signed Date/Time: 05/16/18 1232 DD/ 1232 TD/TT: 05/16/18 1232 Findings [facility] [address] [place] [address] XRay Report Signed Patient: RADHA NETTLES MR#: [id number] : 1950 Acct:[id number] Age/Sex: 67 / F ADM Date: 05/16/18 Loc: ED Attending Dr: Ordering Physician: CYNTHIA HERRERA Date of Service: 05/16/18 Procedure(s): XR spine lumbosacral 2-3V Accession Number(s): [id number] cc: CYNTHIA HERRERA Fluoro Time In Minutes: FINAL REPORT EXAM: XR SPINE LUMBOSACRAL 2-3V HISTORY: fall with pain to lower back TECHNIQUE: 3 views of the lumbar spine PRIORS: Abdomen radiograph 08/09/2017 FINDINGS: There is moderate mural calcified atherosclerotic plaque in the abdominal aorta without evidence of aneurysm formation. Vertebral compression fracture: None Anterolisthesis: L4-5 slight, L5-S1 slight Retrolisthesis: L1-2 slight Disc narrowing: T12-L1 moderate, L1-2 moderate, L5-S1 slight Degenerative change: Multilevel at the vertebral endplates and facet joints. IMPRESSION: No acute skeletal pathology Multilevel degenerative change, spondylolisthesis, and disc narrowing Transcribed By: HETAL Dictated By: JACKLYN ROJAS MD Electronically Authenticated By: JACKLYN ROJAS MD Signed Date/Time: 05/16/181235 DD/ 35 TD/TT: 05/16/181235 - Medical Decision Making This is a 67-year-old female that reports she accidentally fell today when she was walking her dog. She is complaining of pain to her right pelvic area, right upper thigh and lumbar spine area. Patient was seen and examined by myself. Her physical exam is normal except she has tenderness to palpate in lumbar vertebrae without any swelling. She has minimal swelling to right buttocks, tenderness to palpate the right hip and right proximal thigh with no bruising or ecchymotic area. Patient has decreased strength to her right hip and thigh area at 4/5 otherwise normal strength in all other extremities. Pedal pulses are 2+ and bounding. She has no swelling to her lower extremities or upper extremities. Neurologically intact except for her motor deficit on the right side. Patient usually walks with a Tri-Jayy per patient and she is off balance with abnormal gait. I gave her Toradol 30 mg IM and Mesick 5/325 mg by mouth for pain and she voiced relief of pain. Patient is here with her family who reports the patient memory is a little bit off but she is able to tell me the date or year and time when I examined her. Patient does live with someone at home. X-ray of lumbar spine shows no acute fracture or subluxation but patient with degenerative disc disease, x-ray of pelvic area no acute findings an x-ray of femur shows probably nondisplaced avulsion fracture proximal femur which is hard to see on x -ray films. Films reviewed by Dr. Henson. Radiology dictated report and I review results of reports. This is communicated with patient and her family and she does she will need to go to orthopedic doctor in 3 days for follow-up visit for possible left proximal femur fracture. She voiced understanding. Vital signs are stable she is a febrile and pain is down to toilet at 10. Patient discharged home a prescription for Motrin and Ultram. She was discharged home with her family - Differential Diagnosis FX VS dislocation, subluxation, sprain, strain, musculoskeletal pain Critical care attestation.: If time is entered above; I have spent that time in minutes in the direct care of this critically ill patient, excluding procedure time. ED Disposition Clinical Impression: Arthralgia of multiple sites Accidental fall Qualifiers: Encounter type: initial encounter Qualified Code(s): W19.XXXA - Unspecified fall, initial encounter Femur fracture, right Qualifiers: Encounter type: initial encounter Femur location: proximal epiphysis Fracture type: closed Fracture alignment: nondisplaced Qualified Code(s): S72.024A - Nondisplaced fracture of epiphysis (separation) (upper) of right femur, initial encounter for closed fracture Pain in lower back Qualifiers: Chronicity: acute Back pain laterality: midline Sciatica presence: without sciatica Qualified Code(s): M54.5 - Low back pain Disposition: DC- TO HOME OR SELFCARE Is pt being admited?: No Does the pt Need Aspirin: No Condition: Stable Instructions: Leg Fracture (ED), Arthralgia (ED), Fall Prevention for Older Adults (ED), Acute Low Back Pain (ED) Additional Instructions: Please follow up with orthopedic doctor in 3 days. If he develop numbness, bruising, tingling, increased weakness, increasing pain and lack of feeling, change in color please return to the emergency room CHAN Take Ultram for severe pain and please do not drive or operate heavy machinery while taking this medication Take Motrin for mild to moderate pain and please take this medication with food is sticking cause nausea Referrals: LUIS RINALDI MD [Primary Care Provider] - 05/19/18 JON CALLOWAY MD [Staff Physician] - 05/19/18
[2018-05-16] MEDS ORDERED: NORCO 5/325 PO ONE (11:16)
[2018-05-16] MEDS ORDERED: TORADOL IM ONE (11:16)
[2018-05-16 11:18] LABS: Bilirubin,Urine NEG (Negative); Blood,Urine NEG (Negative); Color,Urine Yellow (Yellow); Protein,Urine <15 mg/dL mg/dL (Negative)
--- NOTE | 2018-05-16 12:34 | XRay Report ---
FINAL REPORT EXAM: XR FEMUR 2+V RT HISTORY: fall with pain to right thigh TECHNIQUE: 2 views of the right femur PRIORS: Pelvis radiograph 05/16/2018 and abdomen radiographs 08/09/2017 FINDINGS: Intact appearing right knee arthroplasty. There is diffuse osseous demineralization which limits the examination. Arterial calcification is compatible with atherosclerosis. Multifocal degenerative change in the right hip, pelvis, and lumbar spine. Nonspecific subtle transverse linear lucency is noted at the base the greater trochanter of the proximal right femur. This raises suspicion of a nondisplaced avulsion fracture. IMPRESSION: Suspicion raised of nondisplaced avulsion fracture at the base of the greater trochanter
--- NOTE | 2018-05-16 12:35 | XRay Report ---
FINAL REPORT EXAM: XR PELVIS 1-2V HISTORY: fall with pain to both hips and pelvic area TECHNIQUE: One view of the pelvis PRIORS: Right femur 05/16/2018 FINDINGS: There is diffuse osseous demineralization which limits the examination. Arterial calcification is compatible with atherosclerosis. Multifocal degenerative change in the hips, pelvis, and lumbar spine. Nonspecific subtle transverse linear lucency is noted at the base the greater trochanter of the proximal right femur. This raises suspicion of a nondisplaced avulsion fracture. IMPRESSION: Suspicion raised of nondisplaced avulsion fracture at the base of the right greater trochanter
--- NOTE | 2018-05-16 12:37 | XRay Report ---
FINAL REPORT EXAM: XR SPINE LUMBOSACRAL 2-3V HISTORY: fall with pain to lower back TECHNIQUE: 3 views of the lumbar spine PRIORS: Abdomen radiograph 08/09/2017 FINDINGS: There is moderate mural calcified atherosclerotic plaque in the abdominal aorta without evidence of aneurysm formation. Vertebral compression fracture: None Anterolisthesis: L4-5 slight, L5-S1 slight Retrolisthesis: L1-2 slight Disc narrowing: T12-L1 moderate, L1-2 moderate, L5-S1 slight Degenerative change: Multilevel at the vertebral endplates and facet joints. IMPRESSION: No acute skeletal pathology Multilevel degenerative change, spondylolisthesis, and disc narrowing
[2018-05-16 14:02] VITALS: BP 150/80
== END 2018-05-16 14:01 | disposition home or self-care (01) ==
LOC: ED 10:34
DX: S72.024A Nondisplaced fracture of epiphysis (separation) (upper) of right femur, initial encounter for closed fracture (principal); M54.5 Low back pain; I10 Essential (primary) hypertension; K21.9 Gastro-esophageal reflux disease without esophagitis; G47.30 Sleep apnea, unspecified; J43.9 Emphysema, unspecified; F17.200 Nicotine dependence, unspecified, uncomplicated; Z86.19 Personal history of other infectious and parasitic diseases; Z90.49 Acquired absence of other specified parts of digestive tract; Z88.8 Allergy status to other drugs, medicaments and biological substances; W01.198A Fall on same level from slipping, tripping and stumbling with subsequent striking against other object, initial encounter; Y93.89 Activity, other specified; Y92.89 Other specified places as the place of occurrence of the external cause; Y99.8 Other external cause status
CPT/HCPCS: 72100; 72170; 73552; 81001; 87086; 96372; 99284; J1885

== ENCOUNTER 2018-09-22 11:00 | Outpatient (CLI) | payer MEDICARE | END 2018-09-22 11:01 | disposition home or self-care (01) | LOC: SLR 11:00 | PROVIDERS: ATTEND Internal Medicine Critical Care Medicine | DX: G47.33 Obstructive sleep apnea (adult) (pediatric) (principal); R06.83 Snoring; J44.9 Chronic obstructive pulmonary disease, unspecified; I10 Essential (primary) hypertension; E66.01 Morbid (severe) obesity due to excess calories; E78.00 Pure hypercholesterolemia, unspecified; Z90.89 Acquired absence of other organs; Z90.49 Acquired absence of other specified parts of digestive tract; Z87.891 Personal history of nicotine dependence | CPT/HCPCS: 95810 ==

== ENCOUNTER 2018-09-26 12:16 | Inpatient (IN) | payer MEDICARE ==
[2018-09-26 13:12] LABS: Basophils # (Auto) 0.1 K/mm3 (0.0-0.1); Basophils % (Auto) 1.1 % (0.0-1.8); Eosinophils # (Auto) 0.1 K/mm3 (0.0-0.4); Eosinophils % (Auto) 0.9 % (0.0-4.3); Hematocrit 32.1 % (30.3-42.9); Lymphocytes # (Auto) 1.5 K/mm3 (1.2-5.4); Lymphocytes % (Auto) 13.8 % (13.4-35.0); Mean Corpuscular HGB Conc 34 % (30-34); Mean Corpuscular Volume 88 fl (79-97); Monocytes # (Auto) 0.8 K/mm3 (0.0-0.8); Monocytes % (Auto) 7.8 % (0.0-7.3); Platelet Count 320 K/mm3 (140-440); Red Blood Count 3.67 M/mm3 (3.65-5.03); Red Cell Distribution Width 14.6 % (13.2-15.2)
[2018-09-26 13:31] LABS: BUN/Creatinine Ratio 22; Blood Urea Nitrogen 11 mg/dL (7-17); Calcium 8.9 mg/dL (8.4-10.2); Hemolysis Index 29
[2018-09-26] MEDS ORDERED: SUBLIMAZE IV ONE ×2 (13:54→15:58)
[2018-09-26] MEDS ORDERED: ZOFRAN IV ONE (13:54)
--- NOTE | 2018-09-26 14:03 | Emergency Department Report ---
HPI - General Chief Complaint: Dyspnea/Respdistress Time Seen by Provider: 09/26/18 13:42 - HPI HPI: Room 22 The patient is a 68-year-old female presenting with a chief complaint of shortness of breath weakness and dizziness. The patient states for the past 2 weeks she's felt weak and dizzy especially when standing. The patient states 2 days ago while seated she had a syncopal episode. The patient also noticed intermittent chest pain for the past 1-2 weeks. Patient states she does have shortness of breath and nausea/vomiting with her pain. Patient denies diarrhea or diaphoresis. When asked if she's had a fever the patient states her highest temperature was "99.Something." Location: Head, chest Duration: 1-2 weeks Quality: Pain, dizziness Severity: Moderate Modifying factors: [see above] Context: [see above] Mode of transportation: [not driving] ED Past Medical Hx - Past Medical History Previous Medical History?: Yes Hx Hypertension: Yes Hx GERD: Yes Hx Liver Disease: Yes (HEP C, cirrohsis) Hx Arthritis: Yes Hx Psychiatric Treatment: Yes (depression) Hx COPD: Yes (oxygen dependent) Hx Dementia: Yes (POOR MEMORY , ON MEDS) Additional medical history: osteoporosis, sleep apnea/cpap @ night, Home O2-3L, emphysema - Surgical History Past Surgical History?: Yes Hx Cholecystectomy: Yes Additional Surgical History: thyroid surg t&a - Family History Family history: no significant - Social History Smoking Status: Current Every Day Smoker (1/2 pack per day) Substance Use Type: None (denies illicit drug use) - Medications Home Medications: Home Medications Medication Instructions Recorded Confirmed Last Taken Type Disulfiram (Nf) [Antabuse (Nf)] 250 mg PO DAILY 10/13/13 12/17/17 1 Day Ago History ~10/05/17 Arformoterol Nebu [Brovana Nebu] 15 mcg IH Q12HRT #60 ml 09/06/16 12/17/17 1 Day Ago Rx ~10/05/17 Famotidine [Pepcid] 20 mg PO BID PRN 08/10/17 12/17/17 1 Day Ago History ~10/05/17 ALPRAZolam [Xanax TAB] 1 mg PO BID #60 tablet 10/08/17 12/17/17 Unknown Rx Arformoterol Nebu [Brovana Nebu] 15 mcg IH Q12HRT #60 ml 10/08/17 12/17/17 Unknown Rx Budesonide [Pulmicort Respules] 0.5 mg IH Q12HRT #60 nebu 10/08/17 12/17/17 Unknown Rx Donepezil [Aricept] 10 mg PO QHS #30 tablet 10/08/17 12/17/17 Unknown Rx Gabapentin [Neurontin] 300 mg PO BID PRN #60 capsule 10/08/17 12/17/17 Unknown Rx Ipratropium/Albuterol Sulfate 1 ampul IH Q6HRT PRN #100 ampul.neb 10/08/17 12/17/17 Unknown Rx [DUONEB *Not for PRN Use*] Loratadine [Claritin] 10 mg PO DAILY tablet 10/08/17 12/17/17 Unknown Rx PARoxetine [Paxil] 40 mg PO DAILY #30 tablet 10/08/17 12/17/17 Unknown Rx Quetiapine Fumarate [Seroquel] 400 mg PO HS #30 tablet 10/08/17 12/17/17 Unknown Rx Ropinirole HCl [Requip] 0.5 mg PO HS #30 tablet 10/08/17 12/17/17 Unknown Rx Simvastatin [Zocor] 20 mg PO DAILY 2 Days #30 tablet 10/08/17 12/17/17 Unknown Rx amLODIPine [Norvasc] 10 mg PO QDAY #30 tablet 10/08/17 12/17/17 Unknown Rx busPIRone [Buspar] 10 mg PO BID #60 tablet 10/08/17 12/17/17 Unknown Rx traMADol [Ultram 50 MG tab] 100 mg PO Q6HR PRN #24 tablet 10/08/17 12/17/17 12/16/17 Rx Advil 100 MG tab 1 tab PO BID 12/17/17 12/17/17 12/16/17 History levoFLOXacin [Levaquin TAB] 500 mg PO DAILY 7 Days #7 tablet 03/16/18 Unknown Rx predniSONE [Deltasone] 3 tab PO QDAY 5 Days #15 tab 03/16/18 Unknown Rx Ibuprofen [Motrin] 600 mg PO Q8H PRN #12 tablet 05/16/18 Unknown Rx traMADol [Ultram 50 MG tab] 50 mg PO Q6HR PRN #20 tablet 05/16/18 Unknown Rx ALBUTEROL NEB's [Proventil 0.083% 2.5 mg IH Q4HRT PRN #100 nebu 07/19/18 Unknown Rx NEBS] HYDROcodone/APAP 5-325 [[place] 1 each PO Q6HR PRN #10 tablet 07/19/18 Unknown Rx 5/325] ED Review of Systems ROS: Stated complaint: MECCA/WEAKNESS Other details as noted in HPI Constitutional: denies: diaphoresis, fever Eyes: denies: eye pain ENT: denies: throat pain Respiratory: shortness of breath Cardiovascular: chest pain Endocrine: no symptoms reported Gastrointestinal: nausea, vomiting Genitourinary: denies: dysuria Musculoskeletal: denies: back pain Neurological: vertigo Physical Exam - Physical Exam Vital Signs: Vital Signs 09/26/18 12:25 Temperature 98.1 F Pulse Rate 81 Respiratory 20 Rate Blood Pressure 100/63 O2 Sat by Pulse 97 Oximetry Physical Exam: GENERAL: The patient is well-developed well-nourished female lying on stretcher pain to be in acute distress. [] HEENT: Normocephalic. Atraumatic. Extraocular motions are intact. Patient has moist mucous membranes. NECK: Supple. Trachea midline CHEST/LUNGS: Clear to auscultation. There is no respiratory distress noted. HEART/CARDIOVASCULAR: Regular. There is no tachycardia. There is no gallop rub or murmur. ABDOMEN: Abdomen is soft, nontender. Patient has normal bowel sounds. There is no abdominal distention. SKIN: There is no rash. There is no edema. There is no diaphoresis. NEURO: The patient is awake, alert, and oriented. The patient is cooperative. There is no focal deficit. Cranial nerves II through XII grossly intact, no drift. The patient has normal speech MUSCULOSKELETAL: There is no evidence of acute injury. NIHSS= 0 LOC a. Alert= 0 Not alert but arousable to minor stimuli=1 Not alert requires repeated or strong stimuli to move= 2 Responds only reflex motor or unresponsive=3 b. asks month and age answers both correctly= 0 answers one correctly= 1 answers neither correctly= 2 Best Gaze normal= 0 abnormal in one or both but forced deviation or total paresis absent= 1 forced deviation or total gaze paresis= 2 Visual no visual loss= 0 partial hemianopia= 1 complete hemianopia= 2 bilateral hemianopia= 3 Facial Palsy normal= 0 minor paralysis= 1 partial paralysis= 2 complete paralysis= 3 Motor Arm no drift= 0 drift before 10 secs but doesnt hit bed= 1 some effort against gravity= 2 no effort against gravity= 3 no movement= 4 Motor leg no drift= 0 drift before 5 secs but doesnt hit bed= 1 drifts to bed before 5 secs= 2 no effort against gravity= 3 no movement= 4 Limb ataxia absent=0 present in one limb= 1 present in two limbs= 2 Sensory normal= 0 mild sensory loss= 1 severe (unaware of being touched)= 2 Best language mild/some loss of fluency= 1 severe= 2 mute= 3 Dysarthria normal= 0 slurs some words= 1 severe/unintelligible= 2 Extinction and Inattention no abnormality= 0 visual, tactile, auditory or personal inattention= 1 profound (doesnt recognize own hand or orients to only one side= 2 ED Course Vital Signs 09/26/18 12:25 Temperature 98.1 F Pulse Rate 81 Respiratory 20 Rate Blood Pressure 100/63 O2 Sat by Pulse 97 Oximetry ED Medical Decision Making - Lab Data Result diagrams: 09/26/18 12:54 09/26/18 12:54 - EKG Data -: EKG Interpreted by Me EKG shows normal: sinus rhythm Rate: normal - EKG Data When compared to previous EKG there are: previous EKG unavailable Interpretation: nonspecific ST-T wave vitaliy (flattened T-wave in lead aVL, T-wave inversion in lead V2) - Radiology Data Radiology results: report reviewed (CT head, chest x-ray), image reviewed (CT head, chest x-ray) interpreted by me: Chest x-ray-no pneumothorax [facility] [address] [place] [address] Cat Scan Report Signed Patient: RADHA NETTLES MR#: [id number] : 1950 Acct:[id number] Age/Sex: 68 / F ADM Date: 09/26/18 Loc: ED Attending Dr: Ordering Physician: OVI GUILLEN MD Date of Service: 09/26/18 Procedure(s): CT head/brain wo con Accession Number(s): [id number] cc: OVI GUILLEN MD FINAL REPORT PROCEDURE: CT HEAD/BRAIN WO CON TECHNIQUE: Computerized tomography of the head was performed without contrast material. HISTORY: dizziness, syncope COMPARISON: Prior CT scan of the brain 07/19/2018 FINDINGS: Brain: There is no evidence of intracranial hemorrhage. No parenchymal hemorrhage is seen. No mass lesions or mass effect is identified. No abnormal extra-axial fluid collections or masses are seen. There is some decreased density seen in the periventricular white matter without mass effect. This is fairly symmetric and does not exhibit any mass effect consistent with gliosis probably on the basis of microvascular disease or white matter changes of aging. Ventricles: The sulcal pattern and fissures are mildly prominent consistent with atrophy. Ventricles are normal size and are midline. Bones: No evidence of acute fracture. Paranasal sinuses: Visualized portions are clear. Mastoid air cells: clear IMPRESSION: Stable exam. There is evidence of mild atrophy and gliosis. No acute intracranial abnormalities are identified. No acute or focal intracranial abnormalities are identified. Transcribed By: DFN Dictated By: SERGIO BREWER MD Electronically Authenticated By: SERGIO BREWER MD Signed Date/Time: 09/26/18 1434 DD/ 1435 TD/TT: 09/26/18 1435 [facility] [address] [place] [address] XRay Report Signed Patient: RADHA NETTLES MR#: [id number] : 1950 Acct:[id number] Age/Sex: 68 / F ADM Date: 09/26/18 Loc: ED Attending Dr: Ordering Physician: OVI GUILLEN MD Date of Service: 09/26/18 Procedure(s): XR chest routine 2V Accession Number(s): [id number] cc: OVI GUILLEN MD Fluoro Time In Minutes: FINAL REPORT PROCEDURE: XRAY CHEST 2 VIEWS TECHNIQUE: PA and lateral chest radiographs were obtained. CPT 80441 HISTORY: shortness of breath COMPARISON: Prior chest x-ray 07/19/2018 FINDINGS: Heart size and pulmonary vasculature appear normal. No evidence of pulmonary edema. There is minimal patchy density in both lung bases, left side greater than right suggesting a small amount of atelectasis. Pneumonia needs clinical exclusion. There is blunting of the posterior costophrenic angles consistent with small bilateral pleural effusions. Lungs appear mildly hyperinflated. No acute bony abnormalities are seen IMPRESSION: Small bilateral pleural effusions are present as well as a small amount of patchy bibasilar alveolar density left side greater than right. This may represent atelectasis. Clinical correlation is necessary to exclude infiltrate particularly in the left lower lobe. Lungs are mildly hyperinflated. No other abnormalities are seen.. Transcribed By: DFN Dictated By: SERGIO BREWER MD Electronically Authenticated By: SERGIO BREWER MD Signed Date/Time: 09/26/181439 DD/ 41 TD/TT: 09/26/181441 - Differential Diagnosis vertigo, cerebellar hemorrhage, ACS, pericarditis, PE Critical care attestation.: If time is entered above; I have spent that time in minutes in the direct care of this critically ill patient, excluding procedure time. ED Disposition Clinical Impression: Chest pain, Syncope, Dizziness Disposition: -09 OP ADMIT IP TO THIS HOSP Is pt being admited?: Yes Does the pt Need Aspirin: Yes Condition: Stable Instructions: Chest Pain (ED), Syncope (ED)
--- NOTE | 2018-09-26 14:34 | Cat Scan Report ---
FINAL REPORT PROCEDURE: CT HEAD/BRAIN WO CON TECHNIQUE: Computerized tomography of the head was performed without contrast material. HISTORY: dizziness, syncope COMPARISON: Prior CT scan of the brain 07/19/2018 FINDINGS: Brain: There is no evidence of intracranial hemorrhage. No parenchymal hemorrhage is seen. No mass lesions or mass effect is identified. No abnormal extra-axial fluid collections or masses are seen. There is some decreased density seen in the periventricular white matter without mass effect. This i s fairly symmetric and does not exhibit any mass effect consistent with gliosis probably on the basis of microvascular disease or white matter changes of aging. Ventricles: The sulcal pattern and fissures are mildly prominent consistent with atrophy. Ventricles are normal size and are midline. Bones: No evidence of acute fracture. Paranasal sinuses: Visualized portions are clear. Mastoid air cells: clear IMPRESSION: Stable exam. There is evidence of mild atrophy and gliosis. No acute intracranial abnormalities are i dentified. No acute or focal intracranial abnormalities are identified.
--- NOTE | 2018-09-26 14:40 | XRay Report ---
FINAL REPORT PROCEDURE: XRAY CHEST 2 VIEWS TECHNIQUE: PA and lateral chest radiographs were obtained. CPT 55481 HISTORY: shortness of breath COMPARISON: Prior chest x-ray 07/19/2018 FINDINGS: Heart size and pulmonary vasculature appear normal. No evidence of pulmonary edema. There is minimal patchy density in both lung bases, left side greater than right suggesting a small amount of atelecta sis. Pneumonia needs clinical exclusion. There is blunting of the posterior costophrenic angles consi stent with small bilateral pleural effusions. Lungs appear mildly hyperinflated. No acute bony abnorm alities are seen IMPRESSION: Small bilateral pleural effusions are present as well as a small amount of patchy bibasilar alveolar density left side greater than right. This may represent atelectasis. Clinical correlation is necessa ry to exclude infiltrate particularly in the left lower lobe. Lungs are mildly hyperinflated. No other abnormalities are seen..
[2018-09-26] MEDS ORDERED: ASPIRIN PO ONE (15:09)
[2018-09-26 15:13] LABS: Creatine Kinase MB < 1.0 ng/mL (0.0-4.0)
[2018-09-26] MEDS ORDERED: SODIUM CHLORIDE FLUSH SYRINGE 10 ML IV PRN (15:43)
[2018-09-26] MEDS ORDERED: PROVENTIL IH PRN (15:43)
--- NOTE | 2018-09-26 15:43 | History and Physical Report ---
History of Present Illness Chief complaint: Its hard to catch my breath History of present illness: 68 YO Female with HTN, GERD, HCV, OA, Depression, COPD, Dementia, JUANITA on CPAP, Nicotine Dependence, Chronic Respiratory Failure on 3L Home Oxygen presents to ED for evaluation. Pt states that she has experienced shortness of breath, weakness, and dizziness over the past 2 weeks with worsening symptoms over the past 1 week. Pt also reports that she passed out 2 days ago. Pt also reports chest discomfort with deep breathing. EMS notified, and patient transported to [facility] for further care and evaluation. Pt seen and evaluated in ED and found to have Acute on Chronic Hypoxemic Respiratory Failure, as well as VQ scan s uggestive of Pulmonary Embolism. Pt initiated on therapeutic anticoagulation and admitted to [facility] unit. VQ scan findings discussed with radiology. Pt denies fever, chills, palpitations, NVD, Trauma, prolonged travel/immobility, unilateral leg swelling, calf pain, prolonged travel/immobility, individu al/family history of DVT/PE/Blood Clotting Disorder. Past History Past Medical History: arthritis, COPD, GERD, hepatitis, hypertension, other (Depression, JUANITA) Past Surgical History: cholecystectomy, thyroidectomy Social history: single, smoking Family history: no significant family history (reviewed) Medications and Allergies Allergies Allergy/AdvReac Type Severity Reaction Status Date / Time Iodinated Contrast- Oral and Allergy Itching Verified 09/26/18 12:25 IV Dye [Iodinated Contrast Media - IV Dye] ivp dye Allergy Itching Uncoded 10/05/17 08:23 Home Medications Medication Instructions Recorded Confirmed Last Taken Type Disulfiram (Nf) [Antabuse (Nf)] 250 mg PO DAILY 10/13/13 12/17/17 1 Day Ago History ~10/05/17 Arformoterol Nebu [Brovana Nebu] 15 mcg IH Q12HRT #60 ml 09/06/16 12/17/17 1 Day Ago Rx ~10/05/17 Famotidine [Pepcid] 20 mg PO BID PRN 08/10/17 12/17/17 1 Day Ago History ~10/05/17 ALPRAZolam [Xanax TAB] 1 mg PO BID #60 tablet 10/08/17 12/17/17 Unknown Rx Arformoterol Nebu [Brovana Nebu] 15 mcg IH Q12HRT #60 ml 10/08/17 12/17/17 Unknown Rx Budesonide [Pulmicort Respules] 0.5 mg IH Q12HRT #60 nebu 10/08/17 12/17/17 Unkn own Rx Donepezil [Aricept] 10 mg PO QHS #30 tablet 10/08/17 12/17/17 Unknown Rx Gabapentin [Neurontin] 300 mg PO BID PRN #60 capsule 10/08/17 12/17/17 Unknown Rx Ipratropium/Albuterol Sulfate 1 ampul IH Q6HRT PRN #100 ampul.neb 10/08/17 12/17/17 Unknown Rx [DUONEB *Not for PRN Use*] Loratadine [Claritin] 10 mg PO DAILY tablet 10/08/17 12/17/17 Unknown Rx PARoxetine [Paxil] 40 mg PO DAILY #30 tablet 10/08/17 12/17/17 Unknown Rx Quetiapine Fumarate [Seroquel] 400 mg PO HS #30 tablet 10/08/17 12/17/17 Unknown Rx Ropinirole HCl [Requip] 0.5 mg PO HS #30 tablet 10/08/17 12/17/17 Unknown Rx Simvastatin [Zocor] 20 mg PO DAILY 2 Days #30 tablet 10/08/17 12/17/17 Unknown Rx amLODIPine [Norvasc] 10 mg PO QDAY #30 tablet 10/08/17 12/17/17 Unknown Rx busPIRone [Buspar] 10 mg PO BID #60 tablet 10/08/17 12/17/17 Unknown Rx traMADol [Ultram 50 MG tab] 100 mg PO Q6HR PRN #24 tablet 10/08/17 12/17/17 12/16/17 Rx Advil 100 MG tab 1 tab PO BID 12/17/17 12/17/17 12/16/17 History levoFLOXacin [Levaquin TAB] 500 mg PO DAILY 7 Days #7 tablet 03/16/18 Unknown Rx predniSONE [Deltasone] 3 tab PO QDAY 5 Days #15 tab 03/16/18 Unknown Rx Ibuprofen [Motrin] 600 mg PO Q8H PRN #12 tablet 05/16/18 Unknown Rx traMADol [Ultram 50 MG tab] 50 mg PO Q6HR PRN #20 tablet 05/16/18 Unknown Rx ALBUTEROL NEB's [Proventil 0.083% 2.5 mg IH Q4HRT PRN #100 nebu 07/19/18 Unknown Rx NEBS] HYDROcodone/APAP 5-325 [[place] 1 each PO Q6HR PRN #10 tablet 07/19/18 Unknown Rx 5/325] Review of Systems Constitutional: no weight loss, no weight gain, no fever, no chills Ears, nose, mouth and throat: no ear pain, no tinnitis, no nose pain, no nasal congestion, no nasal discharge Breasts: no change in shape, no swelling, no mass Cardiovascular: no chest pain, no orthopnea, no palpitations Respiratory: shortness of breath, pleurisy, no cough, no cough with sputum Gastrointestinal: no abdominal pain, no nausea, no vomiting, no diarrhea, no constipation Genitourinary Female: no pelvic pain, no flank pain, no menorrhagia Rectal: no pain, no incontinence, no bleeding Musculoskeletal: no neck stiffness, no neck pain, no shooting arm pain, no arm numbness/tingling, no low back pain Integumentary: no rash, no pruritis, no redness, no sores, no wounds Neurological: no paralysis, no weakness, no parathesias, no numbness, no tingling, no seizures Psychiatric: no anxiety, no memory loss, no change in sleep habits, no sleep disturbances, no insomnia, no hypersomnia, no change in appetite Endocrine: no cold intolerance, no heat intolerance, no polyphagia, no excessive thirst, no polydipsia, no polyuria, no nocturia Hematologic/Lymphatic: no easy bruising, no easy bleeding, no lymphadenopathy, no lymphedema Allergic/Immunologic: no urticaria, no allergic rhinitis, no wheezing, no anaphylaxis, no angioedema Exam - Constitutional Vitals: Temp Pulse Resp BP Pulse Ox 98.1 F 81 20 100/63 97 09/26/18 12:25 09/26/18 12:25 09/26/18 12:25 09/26/18 12:25 09/26/18 12:25 General appearance: Present: mild distress - EENT Eyes: Present: PERRL ENT: hearing intact, clear oral mucosa - Neck Neck: Present: supple, normal ROM - Respiratory Respiratory effort: normal Respiratory: bilateral: CTA - Cardiovascular Heart Sounds: Present: S1 & S2. Absent: rub, click - Extremities Extremities: pulses symmetrical, No edema Peripheral Pulses: within normal limits - Abdominal General gastrointestinal: Present: soft, non-tender, non-distended, normal bowel sounds Female genitourinary: Present: normal - Integumentary Integumentary: Present: clear, warm, dry - Musculoskeletal Musculoskeletal: gait normal, strength equal bilaterally - Psychiatric Psychiatric: appropriate mood/affect, intact judgment & insight - Neurologic Neurologic: CNII-XII intact, moves all extremities Results - Labs CBC & Chem 7: 09/26/18 12:54 09/26/18 12:54 Labs: Abnormal lab results 09/26/18 09/26/18 09/26/18 Range/Units 12:54 12:54 14:33 [place] % (Auto) 7.8 H (0.0-7.3) % Seg Neutrophils % 76.4 H (40.0-70.0) % Seg Neutrophils # 8.3 H (1.8-7.7) K/mm3 D-Dimer 1137.75 H (0-234) ng/mlDDU Sodium 135 L (137-145) mmol/L Creatinine 0.5 L (0.7-1.2) mg/dL Total Creatine Kinase (30-135) units/L CK-MB (CK-2) Rel Index (0-4) 09/26/18 Range/Units 14:33 [place] % (Auto) (0.0-7.3) % Seg Neutrophils % (40.0-70.0) % Seg Neutrophils # (1.8-7.7) K/mm3 D-Dimer (0-234) ng/mlDDU Sodium (137-145) mmol/L Creatinine (0.7-1.2) mg/dL Total Creatine Kinase 19 L (30-135) units/L CK-MB (CK-2) Rel Index 5.2 H (0-4) Assessment and Plan - Patient Problems (1) Respiratory failure Current Visit: Yes Status: Acute Qualifiers: Chronicity: acute on chronic Respiratory failure complication: hypoxia Qualified Code(s): J96.21 - Acute and chronic respiratory failure with hypoxia Plan to address problem: Admit to [facility] Unit, Therapeutic anticoagulation, chext x ray, VQ scan, ddimer, nebulizer therapy, NIPPV as clinically indicated, (2) Pulmonary embolism Current Visit: Yes Status: Acute Qualifiers: Chronicity: acute Plan to address problem: Bilateral Pulmonary Emboli: Hypercoagulable profile, therapeutic anticoagulation, supplemental oxygen, VQ Scan, D dimer (3) Nicotine dependence unspecified, with withdrawal Current Visit: Yes Status: Acute Qualifiers: Nicotine product type: cigarettes Qualified Code(s): F17.213 - Nicotine dependence, cigarettes, with withdrawal Plan to address problem: smoking cessation counseling, supportive care. (4) JUANITA and COPD overlap syndrome Current Visit: Yes Status: Acute Plan to address problem: CPAP qhs as clinically indicated, supportive care, continue current therapy (5) HTN (hypertension) Onset Date: 01/24/16 Current Visit: No Status: Acute Qualifiers: Hypertension type: essential hypertension Qualified Code(s): I10 - Essential (primary) hypertension Plan to address problem: monitor bp q shift, continue medical management (6) DVT prophylaxis Current Visit: Yes Status: Acute Plan to address problem: SCD to BLE while in bed
[2018-09-26] MEDS ORDERED: HABITROL TD ONE (16:46)
--- NOTE | 2018-09-26 17:13 | Nuclear Medicine Report ---
FINAL REPORT PROCEDURE: NM LUNG SCAN PERF/VENT TECHNIQUE: 5.0 mCi Tc-99m MAA was injected IV for pulmonary perfusion imaging in multiple projection s. 12.0 mCi xenon 133 gas was inhaled for pulmonary ventilation imaging in multiple projections. HISTORY: shortness of breath, syncope COMPARISON: No prior studies are available for comparison. FINDINGS: Large perfusion defect visualized in the superior segment of the left lower lobe. There also a large defects seen in the lateral basal segment of the right lower lobe and also in the medial segment of t he right middle lobe. On the ventilation scan no defects are seen. There is slight delay and washout of the lower half of the right lung. IMPRESSION: High probability for pulmonary embolus.
[2018-09-26] MEDS ORDERED: MORPHINE IV PRN (20:05)
[2018-09-26] MEDS: ELIQUIS PO SCH (22:31)
[2018-09-27] MEDS: SODIUM CHLORIDE FLUSH SYRINGE 10 ML IV SCH ×3 (03:42→21:10)
[2018-09-27] MEDS: ZOFRAN IV PRN (03:58)
[2018-09-27] MEDS: TYLENOL PO PRN ×2 (06:09→09:01)
[2018-09-27] MEDS: ELIQUIS PO SCH ×2 (09:07→21:07)
--- NOTE | 2018-09-27 09:24 | Progress Note ---
Assessment and Plan Assessment and plan: 68 YO Female with HTN, GERD, HCV, OA, Depression, COPD, Dementia, JUANITA on CPAP, Nicotine Dependence, Chronic Respiratory Failure on 3L Home Oxygen presents to ED for evaluation. Pt states that she has experienced shortness of breath, weakness, and dizziness over the past 2 weeks with worsening symptoms over the past 1 week. Pt also reports that she passed out 2 days ago. Pt also reports chest discomfort with deep breathing. EMS notified, and patient transported to [facility] for further care and evaluation. Pt seen and evaluated in ED and found to have Acute on Chronic Hypoxemic Respiratory Failure, as well as VQ scan suggestive of Pulmonary Embolism. Pt initiated on therapeutic anticoagulation and admitted to [facility] unit. VQ scan findings discussed with radiology. Pt denies fever, chills, palpitations, NVD, Trauma, prolonged travel/immobility, unilateral leg swelling, calf pain, prolonged travel/immobility, individual/family history of DVT/PE/Blood Clotting Disorder. (1) Respiratory failure Current Visit: Yes Status: Acute Qualifiers: Chronicity: acute on chronic Respiratory failure complication: hypoxia Qualified Code(s): J96.21 - Acute and chronic respiratory failure with hypoxia Plan to address problem: Kidney treatment and [facility] Unit, Therapeutic anticoagulation, chext x ray, nebulizer therapy, NIPPV as clinically indicated, (2) Pulmonary embolism Current Visit: Yes Status: Acute Qualifiers: Chronicity: acute Plan to address problem: Bilateral Pulmonary Emboli: Hypercoagulable profile, therapeutic anticoagulation, supplemental oxygen, Check doppler lower ext Check Echocardiogram. Patient was hypotensive on admission. Look for LV strain Patient had a syncopal episode two days prior. Jul 2018 patient had an acutely displaced right greater tronchter fracture following a fall and left AMA. (3) Nicotine dependence unspecified, with withdrawal Current Visit: Yes Status: Acute Qualifiers: Nicotine product type: cigarettes Qualified Code(s): F17.213 - Nicotine dependence, cigarettes, with withdrawal Plan to address problem: smoking cessation counseling, supportive care. (4) JUANITA and COPD overlap syndrome Current Visit: Yes Status: Acute Plan to address problem: CPAP qhs as clinically indicated, supportive care, continue current therapy (5) HTN (hypertension) Onset Date: 01/24/16 Current Visit: No Status: Acute Qualifiers: Hypertension type: essential hypertension Qualified Code(s): I10 - Essential (primary) hypertension Plan to address problem: monitor bp q shift, continue medical management (6) DVT prophylaxis Current Visit: Yes Status: Acute Plan to address problem: SCD to BLE while in bed I have offered senior care facility to this patient on discharge as she does appear to have some baseline dementia. Will discuss with family on next of kin. Patient has high opioid requirement will adjust based on home medication needs. History Interval history: Patient is seen today for: Shortness of breath, recent fall Seen and examined at bedside; 24hour events reviewed; nursing staff ; no adverse overnight events reported to me; Denies any chest pain, nausea, vomiting, diarrhea. Patient continues to ask for pain medication. States that she is very forgetful unable to recall her recent admission in July or even dementia and fracture. No fever noted blood pressure controlled Hospitalist Physical - Physical exam Narrative exam: VITAL SIGNS: Reviewed. GENERAL: The patient appeared chronically ill appearing complaining of ge neralized body pain. Vital signs as documented. HEAD: No signs of head trauma. EYES: Pupils are equal. Extraocular motions intact. EARS: Hearing grossly intact. MOUTH: Oropharynx a bit deviated when she'll number there states that it is normal for her without her dentition. NECK: No adenopathy, no JVD. CHEST: Chest with clear breath sounds bilaterally. No wheezes, rales, or rhonchi. CARDIAC: Regular rate and rhythm. S1 and S2, without murmurs, gallops, or rubs. VASCULAR: No Edema. Peripheral pulses normal and equal in all extremities. ABDOMEN: Soft, without detectable tenderness. No sign of distention. No rebound or guarding, and no masses palpated. Bowel Sounds normal. MUSCULOSKELETAL: Good range of motion of all major joints. Extremities without clubbing, cyanosis or edema. NEUROLOGIC EXAM: Alert and oriented x 3. No focal sensory or strength deficits. Speech normal. Follows commands. PSYCHIATRIC: Mood anxious SKIN: No rash or lesions. - Constitutional Vitals: Temp Pulse Resp BP Pulse Ox 98.4 F 71 20 104/50 95 09/27/18 07:34 09/27/18 07:34 09/27/18 07:34 09/27/18 07:34 09/27/18 07:34 General appearance: Present: mild distress Results - Labs CBC & Chem 7: 09/26/18 12:54 09/26/18 12:54 Labs: Laboratory Last Values WBC 10.9 K/mm3 (4.5-11.0) 09/26/18 12:54 RBC 3.67 M/mm3 (3.65-5.03) 09/26/18 12:54 Hgb 11.0 gm/dl (10.1-14.3) 09/26/18 12:54 Hct 32.1 % (30.3-42.9) 09/26/18 12:54 MCV 88 fl (79-97) 09/26/18 12:54 MCH 30 pg (28-32) 09/26/18 12:54 MCHC 34 % (30-34) 09/26/18 12:54 RDW 14.6 % (13.2-15.2) 09/26/18 12:54 Plt Count 320 K/mm3 (140-440) 09/26/18 12:54 Lymph % (Auto) 13.8 % (13.4-35.0) 09/26/18 12:54 [place] % (Auto) 7.8 % (0.0-7.3) H 09/26/18 12:54 Eos % (Auto) 0.9 % (0.0-4.3) 09/26/18 12:54 Baso % (Auto) 1.1 % (0.0-1.8) 09/26/18 12:54 Lymph # 1.5 K/mm3 (1.2-5.4) 09/26/18 12:54 [place] # 0.8 K/mm3 (0.0-0.8) 09/26/18 12:54 Eos # 0.1 K/mm3 (0.0-0.4) 09/26/18 12:54 Baso # 0.1 K/mm3 (0.0-0.1) 09/26/18 12:54 Seg Neutrophils % 76.4 % (40.0-70.0) H 09/26/18 12:54 Seg Neutrophils # 8.3 K/mm3 (1.8-7.7) H 09/26/18 12:54 D-Dimer 1137.75 ng/mlDDU (0-234) H 09/26/18 14:33 Sodium 135 mmol/L (137-145) L 09/26/18 12:54 Potassium 4.7 mmol/L (3.6-5.0) 09/26/18 12:54 Chloride 99.8 mmol/L (98-107) 09/26/18 12:54 Carbon Dioxide 23 mmol/L (22-30) 09/26/18 12:54 Anion Gap 17 mmol/L 09/26/18 12:54 BUN 11 mg/dL (7-17) 09/26/18 12:54 Creatinine 0.5 mg/dL (0.7-1.2) L 09/26/18 12:54 Estimated GFR > 60 ml/min 09/26/18 12:54 BUN/Creatinine Ratio 22 % 09/26/18 12:54 Glucose 88 mg/dL (65-100) 09/26/18 12:54 Calcium 8.9 mg/dL (8.4-10.2) 09/26/18 12:54 Total Creatine Kinase 19 units/L (30-135) L 09/26/18 14:33 CK-MB (CK-2) < 1.0 ng/mL (0.0-4.0) 09/26/18 14:33 CK-MB (CK-2) Rel Index 5.2 (0-4) H 09/26/18 14:33 Troponin T < 0.010 ng/mL (0.00-0.029) 09/26/18 14:33
[2018-09-27] MEDS ORDERED: DILAUDID IV PRN (10:38)
[2018-09-27] MEDS ORDERED: DUONEB *Not for PRN Use IH (11:20)
[2018-09-27] MEDS ORDERED: PROVENTIL IH PRN (11:20)
[2018-09-27] MEDS ORDERED: PEPCID PO PRN (11:20)
[2018-09-27] MEDS ORDERED: NORCO 5/325 PO PRN (11:20)
[2018-09-27] MEDS: DILAUDID IV PRN (17:47)
[2018-09-27] MEDS: BROVANA NEBU IH SCH (20:37)
[2018-09-27] MEDS: PULMICORT IH SCH (20:37)
[2018-09-27] MEDS: BUSPAR PO SCH (21:06)
[2018-09-27] MEDS: XANAX PO SCH (21:06)
[2018-09-27] MEDS: ARICEPT PO SCH (21:07)
[2018-09-27] MEDS: PRAVACHOL PO SCH (21:07)
[2018-09-27] MEDS ORDERED: ROPINIROLE HCL 0.5 MG PO SCH (22:00)
[2018-09-27] MEDS ORDERED: NON-FORMULARY (Quetiapine Fumarate [Seroquel] 400 MG) PO SCH (22:00)
[2018-09-28] MEDS: REQUIP PO SCH ×2 (00:44→21:17)
[2018-09-28] MEDS: DILAUDID IV PRN ×2 (08:10→20:01)
[2018-09-28] MEDS: BROVANA NEBU IH SCH ×2 (08:15→22:15)
[2018-09-28] MEDS: PULMICORT IH SCH ×2 (08:15→22:15)
[2018-09-28] MEDS ORDERED: NON-FORMULARY (Simvastatin [Zocor] 20 MG) PO SCH (10:00)
[2018-09-28] MEDS: XANAX PO SCH ×2 (10:27→21:16)
[2018-09-28] MEDS: BUSPAR PO SCH ×2 (10:27→21:17)
[2018-09-28] MEDS: CLARITIN PO SCH (10:28)
[2018-09-28] MEDS: ELIQUIS PO SCH ×2 (10:28→21:16)
[2018-09-28] MEDS: SODIUM CHLORIDE FLUSH SYRINGE 10 ML IV SCH (10:28)
[2018-09-28] MEDS: PAXIL PO SCH (10:28)
[2018-09-28] MEDS: NORVASC PO SCH (10:33)
--- NOTE | 2018-09-28 16:27 | Progress Note ---
Assessment and Plan Assessment and plan: 68 YO Female with HTN, GERD, HCV, OA, Depression, COPD, Dementia, JUANITA on CPAP, Nicotine Dependence, Chronic Respiratory Failure on 3L Home Oxygen presents to ED for evaluation. Pt states that she has experienced shortness of breath, weakness, and dizziness over the past 2 weeks with worsening symptoms over the past 1 week. Pt also reports that she passed out 2 days prior to admission. Pt also reports chest discomfort with deep breathing. EMS notified, and patient transported to [facility] for further care and evaluation. Pt seen and evaluated in ED and found to have Acute on Chronic Hypoxemic Respiratory Failure, as well as VQ scan suggestive of Pulmonary Embolism. Pt initiated on therapeutic anticoagulation and admitted to [facility] unit. VQ scan findings discussed with radiology. Pt denies fever, chills, palpitations, NVD, Trauma, prolonged travel/immobility, unilateral leg swelling, calf pain, prolonged travel/immobility, individual/family history of DVT/PE/Blood Clotting Disorder. (1) acute respiratory failure with hypoxia (2) Pulmonary embolism (3) Nicotine dependence unspecified, with withdrawal (4) JUANITA and COPD overlap syndrome (5) HTN (hypertension) (6) Recent hx of Right greater tronchanter fracture-with mild displacement Plan: -Continue supportive care -Continue anticoagulation -Await ECHO to eval for LV strain -Discussed with family about placement in SNF. They agree due to patients underlying dementia -Transfer to patients Primary Doctor, Dr Iqbal. Discussed with the him and his is agreeable for the transfer. -DVT/GI prophy History Interval history: Patient is seen today for: Shortness of breath, recent fall Seen and examined at bedside; 24hour events reviewed; nursing staff ; no adverse overnight events reported to me; Denies any chest pain, nausea, vomiting, diarrhea. Patient continues to ask for pain medication. States that she is very forgetful unable to recall her recent admission in July or even dementia and fracture. Daughter at bedside. No fever noted blood pressure controlled Hospitalist Physical - Physical exam Narrative exam: VITAL SIGNS: Reviewed. GENERAL: The patient appeared chronically ill appearing complaining of generalized body pain. Vital signs as documented. HEAD: No signs of head trauma. EYES: Pupils are equal. Extraocular motions intact. EARS: Hearing grossly intact. MOUTH: Oropharynx a bit deviated when she'll number there states that it is normal for her without her dentition. NECK: No adenopathy, no JVD. CHEST: Chest with clear breath sounds bilaterally. No wheezes, rales, or rhonchi. CARDIAC: Regular rate and rhythm. S1 and S2, without murmurs, gallops, or rubs. VASCULAR: No Edema. Peripheral pulses normal and equal in all extremities. ABDOMEN: Soft, without detectable tenderness. No sign of distention. No rebound or guarding, and no masses palpated. Bowel Sounds normal. MUSCULOSKELETAL: Good range of motion of all major joints. Extremities without clubbing, cyanosis or edema. NEUROLOGIC EXAM: Alert and oriented x 3. No focal sensory or strength deficits. Speech normal. Follows commands. PSYCHIATRIC: Mood anxious SKIN: No rash or lesions. - Constitutional Vitals: Temp Pulse Resp BP Pulse Ox 97.8 F 90 20 137/67 94 09/28/18 13:22 09/28/18 13:22 09/28/18 13:22 09/28/18 13:22 09/28/18 13:22 General appearance: Present: mild distress Results - Labs CBC & Chem 7: 09/26/18 12:54 09/26/18 12:54 Labs: Laboratory Last Values WBC 10.9 K/mm3 (4.5-11.0) 09/26/18 12:54 RBC 3.67 M/mm3 (3.65-5.03) 09/26/18 12:54 Hgb 11.0 gm/dl (10.1-14.3) 09/26/18 12:54 Hct 32.1 % (30.3-42.9) 09/26/18 12:54 MCV 88 fl (79-97) 09/26/18 12:54 MCH 30 pg (28-32) 09/26/18 12:54 MCHC 34 % (30-34) 09/26/18 12:54 RDW 14.6 % (13.2-15.2) 09/26/18 12:54 Plt Count 320 K/mm3 (140-440) 09/26/18 12:54 Lymph % (Auto) 13.8 % (13.4-35.0) 09/26/18 12:54 [place] % (Auto) 7.8 % (0.0-7.3) H 09/26/18 12:54 Eos % (Auto) 0.9 % (0.0-4.3) 09/26/18 12:54 Baso % (Auto) 1.1 % (0.0-1.8) 09/26/18 12:54 Lymph # 1.5 K/mm3 (1.2-5.4) 09/26/18 12:54 [place] # 0.8 K/mm3 (0.0-0.8) 09/26/18 12:54 Eos # 0.1 K/mm3 (0.0-0.4) 09/26/18 12:54 Baso # 0.1 K/mm3 (0.0-0.1) 09/26/18 12:54 Seg Neutrophils % 76.4 % (40.0-70.0) H 09/26/18 12:54 Seg Neutrophils # 8.3 K/mm3 (1.8-7.7) H 09/26/18 12:54 D-Dimer 1137.75 ng/mlDDU (0-234) H 09/26/18 14:33 Sodium 135 mmol/L (137-145) L 09/26/18 12:54 Potassium 4.7 mmol/L (3.6-5.0) 09/26/18 12:54 Chloride 99.8 mmol/L (98-107) 09/26/18 12:54 Carbon Dioxide 23 mmol/L (22-30) 09/26/18 12:54 Anion Gap 17 mmol/L 09/26/18 12:54 BUN 11 mg/dL (7-17) 09/26/18 12:54 Creatinine 0.5 mg/dL (0.7-1.2) L 09/26/18 12:54 Estimated GFR > 60 ml/min 09/26/18 12:54 BUN/Creatinine Ratio 22 % 09/26/18 12:54 Glucose 88 mg/dL (65-100) 09/26/18 12:54 Calcium 8.9 mg/dL (8.4-10.2) 09/26/18 12:54 Total Creatine Kinase 19 units/L (30-135) L 09/26/18 14:33 CK-MB (CK-2) < 1.0 ng/mL (0.0-4.0) 09/26/18 14:33 CK-MB (CK-2) Rel Index 5.2 (0-4) H 09/26/18 14:33 Troponin T < 0.010 ng/mL (0.00-0.029) 09/26/18 14:33
[2018-09-28] MEDS: ZOFRAN IV PRN (20:07)
--- NOTE | 2018-09-28 20:58 | Vascular Lab Report ---
FINAL REPORT PROCEDURE: VL VENOUS DUPLEX LE BILAT TECHNIQUE: Duplex Doppler ultrasound of the BILATERAL common and superficial femoral, popliteal, pos terior tibial and proximal deep femoral veins was attempted. Martinez scale imaging with and without com pression, spectral waveform analysis with and without augmentation, and color flow Doppler were emplo yed. CPT 83122 HISTORY: dvt ,Swelling of limb 729.81 and edema 782.3 COMPARISON: No prior studies are available for comparison. FINDINGS: RIGHT LOWER EXTREMITY: Deep Venous Thrombus: None. Soft tissue abnormality: None. Other: None. LEFT LOWER EXTREMITY: Deep Venous Thrombus: None. Soft tissue abnormality: None. Other: None. IMPRESSION: No evidence of deep venous thrombosis
[2018-09-28] MEDS: PRAVACHOL PO SCH (21:16)
[2018-09-28] MEDS: ARICEPT PO SCH (21:19)
--- NOTE | 2018-09-29 08:57 | Progress Note ---
Assessment and Plan - Acute on Chronic respiratory failure to continue with supplemental oxygen Continue with bronchodilators, iv solumedrol and iv antibiotics - Acute PE Had VQ scan that showed high probability. Pt is allergic to iv contrast so CTA was not done Continue with Eliquis Rist of bleed explained to patient deepthi expressed understanding - History of lung mass in the past. Has seen a Back End Developer Dr. Hagen who referred he to [place] - Nicotine dependence and withdrawal Pt declined nicotine patch always wanting to leave the floor to smoke -COPE with exercebation Continue with bronchodilator and supplemental oxygen - H/o of liver cirrhosis and ETOH use d/o stable -HTN continue with present oral antihypertensive - DVT and GI PPX already on Eliquis. will add pepcid - Mx plan discussed with pt. who explained understanding - Discussed withPt's Daughter, Violet at [phone] regarding the need to d/c to a [facility] Subacute rehab. She was agreeable to it Subjective Date of service: 09/29/18 Principal diagnosis: Acute respiratory failure with hypoxia, Acute PE, CODP exercebation, Interval history: Lying quietly in bed. Requesting pain meds for pain in the lungs. Denies any fever orthopnea or PND. No overnight evnt reported to me. Discussed with pt nurse Objective - Exam Narrative Exam: Constitutional: Well-nourished well-developed. In no distress Head: Normocephalic atraumatic Eyes: Pupils are equal round and reactive to light Nose: No enlarged turbinates, no septal deviation. Mouth: Moist mucous membranes. Neck: Supple no thyromegaly. No bruit. No JVD Heart: Regular rate and rhythm, S1-S2 normal. No rubs murmurs or gallop Lungs: Decreased breath sound zaida. no rales or rhonchi Abdomen: Soft, nontender. Bowel sound are present. Extremities: No edema, no cyanosis, no clubbing. Neuro: Alert oriented Oriented x3. No focal sensory or motor deficit. Skin: No rashes or hyperpigmented spots Musculoskeletal system: No joint pain or swelling Hematological: No petechia or subcutanous hemorrhages. Immunological: No multiple septic spots on the skin Lymphatic: No generalized lymphadenopathy Psychiatry: Euthymic. Calm. - Constitutional Vitals: Vital Signs - 12hr 09/28/18 09/28/18 09/29/18 22:00 22:15 02:18 Temperature 98.3 F Pulse Rate 88 Pulse Rate [ 85 Anterior Bilateral Throughout] Respiratory 18 Rate Respiratory 18 Rate [Anterior Bilateral Throughout] Blood Pressure 115/61 O2 Sat by Pulse 96 88 Oximetry 09/29/18 09/29/18 02:20 07:40 Temperature 97.8 F Pulse Rate 89 95 H Pulse Rate [ Anterior Bilateral Throughout] Respiratory 20 Rate Respiratory Rate [Anterior Bilateral Throughout] Blood Pressure 142/70 O2 Sat by Pulse 90 85 Oximetry - Labs CBC & Chem 7: 09/26/18 12:54 09/26/18 12:54
[2018-09-29] MEDS: DILAUDID IV PRN ×2 (09:12→17:19)
[2018-09-29] MEDS: ELIQUIS PO SCH ×2 (09:13→23:51)
[2018-09-29] MEDS: XANAX PO SCH ×2 (09:13→23:51)
[2018-09-29] MEDS: CLARITIN PO SCH (09:14)
[2018-09-29] MEDS: PAXIL PO SCH (09:14)
[2018-09-29] MEDS: NORVASC PO SCH (09:14)
[2018-09-29] MEDS: BUSPAR PO SCH ×2 (09:15→23:52)
[2018-09-29] MEDS: SODIUM CHLORIDE FLUSH SYRINGE 10 ML IV SCH (09:15)
[2018-09-29] MEDS: BROVANA NEBU IH SCH ×2 (09:50→20:28)
[2018-09-29] MEDS: PULMICORT IH SCH ×2 (09:50→20:28)
[2018-09-29] MEDS: ZOFRAN IV PRN (17:19)
[2018-09-29] MEDS: ARICEPT PO SCH (23:51)
[2018-09-29] MEDS: REQUIP PO SCH (23:52)
[2018-09-29] MEDS: PRAVACHOL PO SCH (23:52)
[2018-09-29] MEDS: NEURONTIN PO PRN (23:52)
[2018-09-30] MEDS: SODIUM CHLORIDE FLUSH SYRINGE 10 ML IV SCH ×4 (00:01→22:39)
[2018-09-30 06:05] LABS: Basophils % (Auto) 0.7 % (0.0-1.8); Eosinophils # (Auto) 0.2 K/mm3 (0.0-0.4); Eosinophils % (Auto) 2.8 % (0.0-4.3); Hematocrit 27.6 % (30.3-42.9); Hemoglobin 9.3 gm/dl (10.1-14.3); Lymphocytes # (Auto) 1.1 K/mm3 (1.2-5.4); Lymphocytes % (Auto) 18.5 % (13.4-35.0); Mean Corpuscular HGB Conc 34 % (30-34); Mean Corpuscular Volume 89 fl (79-97); Monocytes # (Auto) 0.6 K/mm3 (0.0-0.8); Monocytes % (Auto) 9.9 % (0.0-7.3); Platelet Count 255 K/mm3 (140-440); Red Blood Count 3.12 M/mm3 (3.65-5.03); Red Cell Distribution Width 14.8 % (13.2-15.2)
[2018-09-30 07:09] LABS: Albumin 3.3 g/dL (3.9-5); BUN/Creatinine Ratio 38; Blood Urea Nitrogen 15 mg/dL (7-17); Calcium 8.6 mg/dL (8.4-10.2); Hemolysis Index 7
[2018-09-30 07:24] LABS: Alanine Aminotransferase < 5 units/L (7-56)
[2018-09-30] MEDS: PULMICORT IH SCH ×2 (09:15→20:10)
[2018-09-30] MEDS: BROVANA NEBU IH SCH ×2 (09:15→20:10)
--- NOTE | 2018-09-30 09:15 | Progress Note ---
Assessment and Plan - Acute on Chronic respiratory failure to continue with supplemental oxygen Continue with bronchodilators, iv solumedrol and iv antibiotics - Acute PE Had VQ scan that showed high probability. Pt is allergic to iv contrast so CTA was not done Continue with Eliquis Risk of bleeding explained to patient who expressed understanding - History of lung mass in the past. Has seen a Credit Portfolio Manager Dr. Hagen who referred he to [place] - Nicotine dependence and withdrawal Pt declined nicotine patch always wanting to leave the floor to smoke -COPE with exacerbation Continue with bronchodilators and supplemental oxygen - H/o of liver cirrhosis and ETOH use d/o stable -HTN continue with present oral antihypertensive - DVT and GI PPX already on Eliquis. will add pepcid - Mx plan discussed with pt. who explained understanding - Discussed withPt's Daughter, Violet at [phone] regarding the need to d/c to a [facility] ([facility] rehab). She was agreeable to it -Dispostion: Awaiting placement in [facility]. Discussed with pt daughter yesterday. Agreed to placement in [facility] Subjective Date of service: 09/30/18 Principal diagnosis: Acute respiratory failure with hypoxia, Acute PE, CODP exercebation, Interval history: Lying quietly in bed sleep. when aroused requested for pain med iv for abdominal pain. anuel it is generalized. No orthe characterization. Denies any fever orthopnea or PND. No overnight event reported to me. Discussed with pt nurse Objective - Exam Narrative Exam: Constitutional: Well-nourished well-developed.In no distress Head: Normocephalic atraumatic Eyes: Pupils are equal round and reactive to light Nose: No enlarged turbinates, no septal deviation. Mouth: Moist mucous membranes. Neck: Supple no thyromegaly. No bruit. No JVD Heart: Regular rate and rhythm, S1-S2 normal. No rubs murmurs or gallop Lungs: Decreased breath sound zaida. no rales or rhonchi Abdomen: Soft, nontender. Bowel sound are present. Extremities: No edema, no cyanosis, no clubbing. Neuro: Alert oriented Oriented x3. No focal sensory or motor deficit. Skin: No rashes or hyperpigmented spots Musculoskeletal system: No joint pain or swelling Hematological: No petechia or subcutanous hemorrhages. Immunological: No multiple septic spots on the skin Lymphatic: No generalized lymphadenopathy Psychiatry: Euthymic. Calm. - Constitutional Vitals: Vital Signs - 12hr 09/29/18 09/29/18 09/30/18 23:50 23:52 00:52 Temperature Pulse Rate Respiratory 20 20 Rate Respiratory 20 Rate [ Generalized] Blood Pressure O2 Sat by Pulse 91 Oximetry 09/30/18 09/30/18 09/30/18 02:26 03:41 07:35 Temperature 98.6 F 98.3 F Pulse Rate 106 H 95 H 91 H Respiratory 20 18 Rate Respiratory Rate [ Generalized] Blood Pressure 94/52 92/49 O2 Sat by Pulse 91 95 Oximetry - Labs CBC & Chem 7: 09/30/18 05:32 09/30/18 05:32 Labs: Abnormal lab results 09/30/18 09/30/18 Range/Units 05:32 05:32 RBC 3.12 L (3.65-5.03) M/mm3 Hgb 9.3 L (10.1-14.3) gm/dl Hct 27.6 L (30.3-42.9) % [place] % (Auto) 9.9 H (0.0-7.3) % Lymph # 1.1 L (1.2-5.4) K/mm3 Creatinine 0.4 L (0.7-1.2) mg/dL ALT < 5 L (7-56) units/L Albumin 3.3 L (3.9-5) g/dL
[2018-09-30] MEDS: ZOFRAN IV PRN ×2 (09:40→15:51)
[2018-09-30] MEDS: DILAUDID IV PRN (09:41)
[2018-09-30] MEDS: BUSPAR PO SCH ×2 (09:41→22:40)
[2018-09-30] MEDS: PAXIL PO SCH (09:42)
[2018-09-30] MEDS: ELIQUIS PO SCH ×2 (09:43→22:40)
[2018-09-30] MEDS: CLARITIN PO SCH (09:43)
[2018-09-30] MEDS: XANAX PO SCH ×2 (09:43→22:40)
[2018-09-30] MEDS: NORVASC PO SCH (09:43)
[2018-09-30] MEDS ORDERED: NARCAN 0.4 MG/1 ML IV STA (12:17)
--- NOTE | 2018-09-30 12:33 | Event Note ---
Date: 09/30/18 Code Met called for altered mental status. Patient lethargic arouseable. Patient had received Dilaudid this morning. Vijay almaraz by Primary. Will get ABG, and CT Head
--- NOTE | 2018-09-30 12:38 | Event Note ---
Date: 09/30/18 Patient started waking up after Narcan, now follows commands, talking. Will cancel CT Head that was ordered.
[2018-09-30] MEDS: TYLENOL PO PRN (12:41)
[2018-09-30] MEDS ORDERED: NACL 0.9% 1000 ML 500 ML IV ONE (14:19)
[2018-09-30] MEDS: NITRO-BID 2% TP SCH (15:39)
[2018-09-30] MEDS: ASPIRIN PO SCH (15:39)
[2018-09-30 16:36] LABS: Creatine Kinase MB < 1.0 ng/mL (0.0-4.0)
[2018-09-30] MEDS: NEURONTIN PO PRN (19:56)
[2018-09-30] MEDS: REQUIP PO SCH (22:40)
[2018-09-30] MEDS: ARICEPT PO SCH (22:40)
[2018-09-30] MEDS: PRAVACHOL PO SCH (22:40)
[2018-10-01 05:41] LABS: Basophils % (Auto) 0.4 % (0.0-1.8); Eosinophils # (Auto) 0.1 K/mm3 (0.0-0.4); Eosinophils % (Auto) 1.1 % (0.0-4.3); Hemoglobin 8.9 gm/dl (10.1-14.3); Lymphocytes # (Auto) 1.1 K/mm3 (1.2-5.4); Lymphocytes % (Auto) 11.6 % (13.4-35.0); Mean Corpuscular HGB Conc 34 % (30-34); Mean Corpuscular Volume 88 fl (79-97); Monocytes # (Auto) 0.7 K/mm3 (0.0-0.8); Monocytes % (Auto) 7.6 % (0.0-7.3); Platelet Count 221 K/mm3 (140-440); Red Blood Count 2.96 M/mm3 (3.65-5.03); Red Cell Distribution Width 15.3 % (13.2-15.2)
[2018-10-01 06:10] LABS: Alanine Aminotransferase 8 units/L (7-56); Albumin 3.1 g/dL (3.9-5); BUN/Creatinine Ratio 28; Blood Urea Nitrogen 11 mg/dL (7-17); Calcium 8.6 mg/dL (8.4-10.2); Hemolysis Index 8
--- NOTE | 2018-10-01 08:54 | Progress Note ---
Assessment and Plan - Acute on Chronic respiratory failure to continue with supplemental oxygen Continue with bronchodilators, Taper iv solumedrol and iv antibiotics - Acute PE Had VQ scan that showed high probability. Pt is allergic to iv contrast so CTA was not done Continue with Eliquis Risk of bleeding explained to patient who expressed understanding - History of lung mass in the past. Has seen a Director Digital Advertising Dr. Hagen who referred he to [place]. Pt yet to keep appointment - Nicotine dependence and withdrawal Pt declined nicotine patch but always wanting to leave the floor to smoke -COPE with exacerbation Continue with bronchodilators and supplemental oxygen - H/o of liver cirrhosis and ETOH use d/o stable - Hypokalemia supplement. rechek K and Mg levels - Respiratory depression from Narcotic yesterday, 09/30/18. Reversed with Naloxo ne. Will hold narcotic Ibuprofen for pain since pt had h/o of Live Cirrhosis. Will Continue to avoid Acetomenophen -HTN continue with present oral antihypertensive - DVT and GI PPX already on Eliquis. will add pepcid - Mx plan discussed with pt. who explained understanding - Discussed with Pt's Daughter, Violet at [phone] regarding the need to d/c to a [facility] ([facility] rehab). She was agreeable to it -Dispostion: Awaiting placement in [facility]. Discussed with pt daughter yesterday. Agreed to placement in [facility] Subjective Date of service: 10/01/18 Principal diagnosis: Acute respiratory failure with hypoxia, Acute PE, CODP ex ercebation, Interval history: Lying quietly in bed sleep. Easily aroused. Woke up to t fro pain medication because of abdominal pain. Pt was said to have gone into respiratory ditress yesterday after being given Dilaudid. Code MET had to be called. Pt was given Nolaxone to get her arousable. Today pt is very interactive but asking for pain meds. discussed with pt's nurse. Had twitching of her face yesterday fro which a CT head was ordered. Twitching has stopped Objective - Exam Narrative Exam: Constitutional: Well-nourished well-developed. In no distress Head: Normocephalic atraumatic Eyes: Pupils are equal round and reactive to light Nose: No enlarged turbinates, no septal deviation. Mouth: Moist mucous membranes. Neck: Supple no thyromegaly. No bruit. No JVD Heart: Regular rate and rhythm, S1-S2 normal. No rubs murmurs or gallop Lungs: Decreased breath sound zaida. no rales or rhonchi Abdomen: Soft, nontender. Bowel sound are present. Extremities: No edema, no cyanosis, no clubbing. Neuro: Alert oriented Oriented x3. No focal sensory or motor deficit. Skin: No rashes or hyperpigmented spots Musculoskeletal system: No joint pain or swelling Hematological: No petechia or subcutanous hemorrhages. Immunological: No multiple septic spots on the skin Lymphatic: No generalized lymphadenopathy Psychiatry: Euthymic. Calm. - Constitutional Vitals: Vital Signs - 12hr 09/30/18 10/01/18 10/01/18 22:00 02:23 02:24 Temperature 98.4 F Pulse Rate 100 H 101 H Pulse Rate [ 101 H From Monitor] Respiratory 20 20 Rate Blood Pressure 108/55 O2 Sat by Pulse 90 86 90 Oximetry - Labs CBC & Chem 7: 10/01/18 04:59 10/01/18 04:59 Labs: Abnormal lab results 09/30/18 09/30/18 10/01/18 Range/Units 12:16 12:35 04:59 RBC 2.96 L (3.65-5.03) M/mm3 Hgb 8.9 L (10.1-14.3) gm/dl Hct 26.0 L (30.3-42.9) % RDW 15.3 H (13.2-15.2) % Lymph % (Auto) 11.6 L (13.4-35.0) % [place] % (Auto) 7.6 H (0.0-7.3) % Lymph # 1.1 L (1.2-5.4) K/mm3 Seg Neutrophils % 79.3 H (40.0-70.0) % POC ABG pH 7.272 L (7.35-7.45) POC ABG pCO2 70.7 H (35-45) POC ABG pO2 134 H (80-105) Sodium (137-145) mmol/L Potassium (3.6-5.0) mmol/L Chloride (98-107) mmol/L Creatinine (0.7-1.2) mg/dL POC Glucose 129 H (70-105) Albumin (3.9-5) g/dL 10/01/18 Range/Units 04:59 RBC (3.65-5.03) M/mm3 Hgb (10.1-14.3) gm/dl Hct (30.3-42.9) % RDW (13.2-15.2) % Lymph % (Auto) (13.4-35.0) % [place] % (Auto) (0.0-7.3) % Lymph # (1.2-5.4) K/mm3 Seg Neutrophils % (40.0-70.0) % POC ABG pH (7.35-7.45) POC ABG pCO2 (35-45) POC ABG pO2 (80-105) Sodium 136 L (137-145) mmol/L Potassium 3.5 L (3.6-5.0) mmol/L Chloride 97.4 L (98-107) mmol/L Creatinine 0.4 L (0.7-1.2) mg/dL POC Glucose (70-105) Albumin 3.1 L (3.9-5) g/dL
[2018-10-01] MEDS: ELIQUIS PO SCH ×2 (10:18→21:02)
[2018-10-01] MEDS: BUSPAR PO SCH ×2 (10:18→21:03)
[2018-10-01] MEDS: ASPIRIN PO SCH (10:18)
[2018-10-01] MEDS: CLARITIN PO SCH (10:18)
[2018-10-01] MEDS: PAXIL PO SCH (10:18)
[2018-10-01] MEDS: SODIUM CHLORIDE FLUSH SYRINGE 10 ML IV SCH ×2 (10:19→21:08)
[2018-10-01] MEDS: XANAX PO SCH ×2 (10:19→21:02)
[2018-10-01] MEDS: NORVASC PO SCH (10:20)
[2018-10-01] MEDS: PULMICORT IH SCH ×2 (10:24→19:25)
[2018-10-01] MEDS: BROVANA NEBU IH SCH ×2 (10:24→19:25)
[2018-10-01] MEDS: IBUPROFEN PO PRN ×2 (11:38→19:53)
[2018-10-01] MEDS: K-DUR PO SCH (11:38)
[2018-10-01] MEDS: NITRO-BID 2% TP SCH (15:57)
[2018-10-01] MEDS: REQUIP PO SCH (21:01)
[2018-10-01] MEDS: PRAVACHOL PO SCH (21:02)
[2018-10-01] MEDS: NEURONTIN PO PRN (21:03)
[2018-10-01] MEDS: ARICEPT PO SCH (21:04)
[2018-10-01 22:00] LABS: Bilirubin,Urine NEG (Negative); Blood,Urine NEG (Negative); Color,Urine Yellow (Yellow); Mucus,Urine FEW /HPF; Protein,Urine <15 mg/dL mg/dL (Negative)
[2018-10-02] MEDS: PULMICORT IH SCH (07:45)
[2018-10-02] MEDS: BROVANA NEBU IH SCH (07:45)
[2018-10-02 08:36] VITALS: BP 101/61
--- NOTE | 2018-10-02 08:55 | Discharge Summary ---
Providers - Providers Date of Admission: 09/26/18 15:43 Date of discharge: 10/02/18 Attending physician: MITCHELL GUEVARA 09/28/18 14:02 Physical Therapy Evaluation and Treat [CONS] Routine Comment: Reason For Exam: Eval for SNF placement recommendations 09/28/18 14:07 Occupational Therapy Evaluate and Treat [CONS] Routine Comment: Reason For Exam: Eval for SNF placement recommendations Primary care physician: UTILITY PERSON Hospitalization Condition: Stable Pertinent studies: VQ scan chest that showed high probability to PE. Prt is allergic to dye so no CTA was done CT head was unremarkable for any acute event Procedures: none Hospital course: 68 YO Female with HTN, GERD, HCV, OA, Depression, COPD, Dementia, JUANITA on CPAP, Nicotine Dependence, Chronic Respiratory Failure on 3L Home Oxygen presents to ED for evaluation. Pt states that she has experienced shortness of breath, weakness, and dizziness over the past 2 weeks with worsening symptoms over the past 1 week. Pt also reports that she passed out 2 days ago. Pt also reports chest discomfort with deep breathing. EMS notified, and patient transported to [facility] for further care and evaluation. Pt seen and evaluated in ED and found to have Acute on Chronic Hypoxemic Respiratory Failure, as well as VQ scan sugges tive of Pulmonary Embolism. Pt initiated on therapeutic anticoagulation and admitted to [facility] unit. VQ scan findings discussed with radiology. Pt denies fever, chills, palpitations, NVD, Trauma, prolonged travel/immobility, unilateral leg swelling, calf pain, prolonged travel/immobility, individual/family history of DVT/PE/Blood Clotting Disorder. Venous Doppler was done was negative for any activities DVT. Patient was commenced on Eliquis. Risk benefit explained to her include intracranieal bleeding and . She expressed understanding and wanted to proceed. She also complained of chest pain that resolved shortly thereafter. EKG was done. No ischemic changed were found. Cardiac enzymes including Troponine were normal. ECHO was also done Mild diastolic dysfunction identified. She has had full cardiac work up some month ago. She later went in to respirator distress and became unresponsiveness after receiving a dose of Dilaudid. Was given naloxone that reversed her condition. Patient gradually became arousable and back to her normal mental status and requesting for more pain medications. She will continue on Eliquis for 9 months. This risk benefits of anticoagulation with Eliquis was explained to her which includes intracranial hemorrhage. This was explained to her daughter Violet that who also expressed understanding of the risk benefit. Patient had an episode of hypokalemia for which was given potassium supplements. Had UTI was treated with Levaquin for 3 days. She is a therefore discharged today to follow primary care physician. She is to Follow up with PCP in 3-5 days, retail loan officer in 2 weeks and and with crab butcher Dr. Rodriguez in 7 days. Disposition: DC-01 TO HOME OR SELFCARE Time spent for discharge: 35 min - Discharge Diagnoses (1) DVT prophylaxis Status: Acute (2) Nicotine dependence unspecified, with withdrawal Status: Acute Qualifiers: Nicotine product type: cigarettes Qualified Code(s): F17.213 - Nicotine dependence, cigarettes, with withdrawal (3) Pulmonary embolism Status: Acute Qualifiers: Chronicity: acute (4) Respiratory failure Status: Acute Qualifiers: Chronicity: acute on chronic Respiratory failure complication: hypoxia Qualified Code(s): J96.21 - Acute and chronic respiratory failure with hypoxia (5) Chest pain Status: Acute (6) JUANITA and COPD overlap syndrome Status: Acute Core Measure Documentation - Palliative Care Palliative Care/ Comfort Measures: Not Applicable - Core Measures Any of the following diagnoses?: DVT/PE - VTE Discharge Requirements Deep Vein Thrombosis/Pulmonary Embolism Present on Admission: Yes Has pt received <5 days of overlap therapy or INR<2.0: Yes Anticoagulant overlap therapy prescribed at discharge: Yes Exam - Physical Exam Narrative exam: Constitutional: Well-nourished well-developed. In no distress Head: Normocephalic atraumatic Eyes: Pupils are equal round and reactive to light Nose: No enlarged turbinates, no septal deviation. Mouth: Moist mucous membranes. Neck: Supple no thyromegaly. No bruit. No JVD Heart: Regular rate and rhythm, S1-S2 normal. No rubs murmurs or gallop Lungs: Decreased breath sound zaida. no rales or rhonchi Abdomen: Soft, nontender. Bowel sound are present. Extremities: No edema, no cyanosis, no clubbing. Neuro: Alert oriented Oriented x3. No focal sensory or motor deficit. Skin: No rashes or hyperpigmented spots Musculoskeletal system: No joint pain or swelling Hematological: No petechia or subcutanous hemorrhages. Immunological: No multiple septic spots on the skin Lymphatic: No generalized lymphadenopathy Psychiatry: Euthymic. Calm. - Constitutional Vitals: Temp Pulse Resp BP Pulse Ox 98.3 F 87 22 101/61 84 10/02/18 08:03 10/02/18 08:03 10/02/18 08:03 10/02/18 08:03 10/02/18 08:03 Plan Activity: advance as tolerated, fall precautions Weight Bearing Status: Weight Bear as Tolerated Diet: regular Follow up with: PRIMARY CARE, [Primary Care Provider] - 7 Days Prescriptions: ALBUTEROL NEB's [Proventil 0.083% NEBS] 2.5 mg IH Q4HRT PRN #100 nebu PRN Reason: Shortness Of Breath ALPRAZolam [Xanax TAB] 1 mg PO BID #60 tablet amLODIPine [Norvasc] 10 mg PO QDAY #30 tablet Apixaban [Eliquis] 5 mg PO Q12HR #60 tablet Arformoterol Nebu [Brovana Nebu] 15 mcg IH Q12HRT #60 ml Budesonide [Pulmicort Respules] 0.5 mg IH Q12HRT #60 nebu Donepezil [Aricept] 10 mg PO QHS #30 tablet Famotidine [Pepcid] 20 mg PO BID PRN #60 tablet PRN Reason: gerd, reflux Gabapentin [Neurontin] 300 mg PO BID PRN #60 capsule PRN Reason: Pain Ibuprofen [Motrin 600 MG tab] 600 mg PO Q12H PRN #12 tablet PRN Reason: Pain levoFLOXacin [Levaquin TAB] 500 mg PO DAILY 7 Days #3 tablet PARoxetine [Paxil] 40 mg PO DAILY #30 tablet Potassium Chloride [K-Dur] 20 meq PO QDAY #30 tablet predniSONE [Deltasone] 3 tab PO QDAY 5 Days #15 tab QUEtiapine [SEROquel] 400 mg PO HS #30 tablet rOPINIRole [Requip] 0.5 mg PO QHS #30 tablet
[2018-10-02] MEDS: ASPIRIN PO SCH (09:36)
[2018-10-02] MEDS: NORVASC PO SCH (09:36)
[2018-10-02] MEDS: K-DUR PO SCH (09:37)
[2018-10-02] MEDS: ELIQUIS PO SCH (09:38)
[2018-10-02] MEDS: CLARITIN PO SCH (09:38)
[2018-10-02] MEDS: XANAX PO SCH (09:38)
[2018-10-02] MEDS: PAXIL PO SCH (09:38)
[2018-10-02] MEDS: SODIUM CHLORIDE FLUSH SYRINGE 10 ML IV SCH (09:39)
[2018-10-02] MEDS: BUSPAR PO SCH (09:41)
[2018-10-02 09:51] LABS: Basophils % (Auto) 0.6 % (0.0-1.8); Eosinophils # (Auto) 0.1 K/mm3 (0.0-0.4); Eosinophils % (Auto) 2.4 % (0.0-4.3); Hematocrit 26.7 % (30.3-42.9); Hemoglobin 9.2 gm/dl (10.1-14.3); Lymphocytes # (Auto) 1.1 K/mm3 (1.2-5.4); Lymphocytes % (Auto) 17.7 % (13.4-35.0); Mean Corpuscular HGB Conc 35 % (30-34); Mean Corpuscular Volume 89 fl (79-97); Monocytes # (Auto) 0.3 K/mm3 (0.0-0.8); Monocytes % (Auto) 5.1 % (0.0-7.3); Platelet Count 244 K/mm3 (140-440); Red Blood Count 3.02 M/mm3 (3.65-5.03); Red Cell Distribution Width 15.3 % (13.2-15.2)
[2018-10-02 10:01] LABS: Alanine Aminotransferase 6 units/L (7-56); Albumin 3.2 g/dL (3.9-5); BUN/Creatinine Ratio 22; Blood Urea Nitrogen 11 mg/dL (7-17); Calcium 8.7 mg/dL (8.4-10.2); Hemolysis Index 0
[2018-10-02] MEDS: NEURONTIN PO PRN (17:37)
[2018-10-02] MEDS: IBUPROFEN PO PRN (17:37)
[2018-10-03] MEDS ORDERED: ELIQUIS PO SCH (22:00)
--- NOTE | 2018-10-05 23:07 | Cat Scan Report ---
FINAL REPORT PROCEDURE: CT head without contrast. TECHNIQUE: Computerized tomography of the head was performed without contrast material. HISTORY: Lethargy. COMPARISON: CT head 09/26/2018. FINDINGS: There is motion artifact on a few of the images. The ventricles are normal in size. The kam matter a nd white matter appear normal. There are no mass lesions. There is no intracranial hemorrhage. The ca lvarium appears intact. The mastoid air cells and paranasal sinuses are well aerated. IMPRESSION: Normal study.
[2018-10-14 07:29] LABS: Antithrombin III Antigen SEE SCANNED RESULT; Cardiolipin Ab IgA SEE SCANNED RESULT; Cardiolipin Ab IgG SEE SCANNED RESULT; Cardiolipin Ab IgM SEE SCANNED RESULT; Interpretation HYPERCOAG PROF SEE SCANNED RESULT; Protein C Antigen SEE SCANNED RESULT; Protein S, Free SEE SCANNED RESULT; Protein S, Total SEE SCANNED RESULT
== END 2018-10-02 17:55 | DRG 175 ==
LOC: ED 12:16 → 2B-ACE 15:43
PROVIDERS: ADMIT Internal Medicine; ATTEND Family Medicine
PROC: 4A033R1 Measurement of Arterial Saturation, Peripheral, Percutaneous Approach (ICD-10-PCS; principal; 2018-09-30)
DX: I26.99 Other pulmonary embolism without acute cor pulmonale (principal); J96.21 Acute and chronic respiratory failure with hypoxia; F17.213 Nicotine dependence, cigarettes, with withdrawal; J44.1 Chronic obstructive pulmonary disease with (acute) exacerbation; N39.0 Urinary tract infection, site not specified; I10 Essential (primary) hypertension; K21.9 Gastro-esophageal reflux disease without esophagitis; M19.90 Unspecified osteoarthritis, unspecified site; F32.9 Major depressive disorder, single episode, unspecified; F03.90 Unspecified dementia, unspecified severity, without behavioral disturbance, psychotic disturbance, mood disturbance, and anxiety; G47.33 Obstructive sleep apnea (adult) (pediatric); E87.6 Hypokalemia; K74.60 Unspecified cirrhosis of liver; G93.89 Other specified disorders of brain; E89.0 Postprocedural hypothyroidism; R55 Syncope and collapse; K75.9 Inflammatory liver disease, unspecified; M81.0 Age-related osteoporosis without current pathological fracture; Z91.041 Radiographic dye allergy status; Z99.81 Dependence on supplemental oxygen; Z90.49 Acquired absence of other specified parts of digestive tract; Z79.899 Other long term (current) drug therapy; Z71.6 Tobacco abuse counseling
CPT/HCPCS: 36415; 36600; 70450; 71046; 78582; 80048; 80053; 81001; 82550; 82553; 82803; 82962; 83516; 83735; 84484; 85025; 85301; 85305; 85307; 85379; 85613; 86147; 87116; 93005; 93010; 93306; 93970; 94640; 94760; 96374; 96375; 99406; G0378; A9270-GY; A9540; A9558; J1170; J2270; J2310; J2405; J3010; J7030

== ENCOUNTER 2019-01-09 17:23 | Emergency (ER) | payer MEDICARE ==
[2019-01-09 17:31] VITALS: BP 149/41
[2019-01-09] MEDS ORDERED: ZOFRAN ODT PO ONE (19:35)
[2019-01-09] MEDS ORDERED: NORCO 5/325 PO ONE (20:13)
--- NOTE | 2019-01-09 20:23 | XRay Report ---
PROCEDURE: XR CHEST ROUTINE 2V TECHNIQUE: PA and lateral views of the chest HISTORY: sob COMPARISONS: X-ray dated September 26, 2018. The report of that study is not available for review at th e time of this dictation. FINDINGS: There is prominence of the interstitial markings in both lungs with peribronchial thickening similar in appearance to the previous study. There is pulmonary consolidation in the left lower lobe as was demonstrated on the previous study. There is no definite evidence of pleural effusion. The cardiac silhouette is normal size. There is atherosclerotic vascular calcification of the thoracic aorta. The bony structures are notable for levocurvature of the lower thoracic and upper lumbar spine. IMPRESSION: 1. Pulmonary consolidation in the left lower lobe similar in appearance to the previous chest x-ray d ated September 26, 2018. CT chest would be helpful for further evaluation. This document is electronically signed by Shelby Rodriguez MD., January 09 2019 08:21:01 PM ET
[2019-01-09 20:36] LABS: Basophils # (Auto) 0.1 K/mm3 (0.0-0.1); Eosinophils # (Auto) 0.3 K/mm3 (0.0-0.4); Eosinophils % (Auto) 4.1 % (0.0-4.3); Hematocrit 31.8 % (30.3-42.9); Hemoglobin 10.5 gm/dl (10.1-14.3); Lymphocytes # (Auto) 1.5 K/mm3 (1.2-5.4); Lymphocytes % (Auto) 19.1 % (13.4-35.0); Mean Corpuscular HGB Conc 33 % (30-34); Mean Corpuscular Volume 92 fl (79-97); Monocytes # (Auto) 0.6 K/mm3 (0.0-0.8); Platelet Count 238 K/mm3 (140-440); Red Blood Count 3.45 M/mm3 (3.65-5.03); Red Cell Distribution Width 15.8 % (13.2-15.2)
[2019-01-09 20:44] LABS: Alanine Aminotransferase 6 units/L (7-56); Albumin 3.9 g/dL (3.9-5); BUN/Creatinine Ratio 12; Blood Urea Nitrogen 6 mg/dL (7-17); Calcium 8.8 mg/dL (8.4-10.2); Hemolysis Index 4
--- NOTE | 2019-01-09 20:56 | Emergency Department Report ---
ED Abdominal Pain HPI - General Chief Complaint: Abdominal Pain Stated Complaint: LFT GROIN/RT ARM PAIN Time Seen by Provider: 01/09/19 19:33 Source: patient, EMS Mode of arrival: Wheelchair Limitations: No Limitations - History of Present Illness Initial Comments: pt is a 68 y/o w/f with hx of COPD O2 dependent, HTN, GERD, HTN, Psych, who presents for right superpubic radiating to abdomen and left arm states increase sob over past week pt states adherence with mediation regimen, abd pain is 5/10 exacerbated by movement there is no hematuria frequency or urgency no fever o chills no n/v MD Complaint: abdominal pain Onset/Timin -: week(s) Location: suprapubic Radiation: epigastric Migration to: no migration Severity: moderate Severity scale (0 -10): 5 Quality: sharp Consistency: intermittent Improves With: nothing Worsens With: nothing Associated Symptoms: denies: nausea, vomiting, diarrhea, fever, chills, const ipation, dysuria, hematuria Treatments Prior to Arrival: NSAIDs (ultram) - Related Data Home Medications Medication Instructions Recorded Confirmed Last Taken Disulfiram (Nf) [Antabuse (Nf)] 250 mg PO DAILY 10/13/13 09/29/18 1 Day Ago ~10/05/17 Advil 100 MG tab 1 tab PO BID 12/17/17 09/29/18 12/16/17 Previous Rx's Medication Instructions Recorded Last Taken Type Arformoterol Nebu [Brovana Nebu] 15 mcg IH Q12HRT #60 ml 10/08/17 Unknown Rx Ipratropium/Albuterol Sulfate 1 ampul IH Q6HRT PRN #100 ampul.neb 10/08/17 Unknown Rx [DUONEB *Not for PRN Use*] Quetiapine Fumarate [SEROquel] 400 mg PO HS #30 tablet 10/08/17 Unknown Rx Ropinirole HCl [Requip] 0.5 mg PO HS #30 tablet 10/08/17 Unknown Rx ALBUTEROL NEB's [Proventil 0.083% 2.5 mg IH Q4HRT PRN #100 nebu 10/02/18 Unknown Rx NEBS] ALPRAZolam [Xanax TAB] 1 mg PO BID #60 tablet 10/02/18 Unknown Rx Apixaban [Eliquis] 5 mg PO Q12HR #60 tablet 10/02/18 Unknown Rx Arformoterol Nebu [Brovana Nebu] 15 mcg IH Q12HRT #60 ml 10/02/18 Unknown Rx Budesonide [Pulmicort Respules] 0.5 mg IH Q12HRT #60 nebu 10/02/18 Unknown Rx Donepezil [Aricept] 10 mg PO QHS #30 tablet 10/02/18 Unknown Rx Famotidine [Pepcid] 20 mg PO BID PRN #60 tablet 10/02/18 Unknown Rx Gabapentin [Neurontin] 300 mg PO BID PRN #60 capsule 10/02/18 Unknown Rx Ibuprofen [Motrin 600 MG tab] 600 mg PO Q12H PRN #12 tablet 10/02/18 Unknown Rx PARoxetine [Paxil] 40 mg PO DAILY #30 tablet 10/02/18 Unknown Rx Potassium Chloride [K-Dur] 20 meq PO QDAY #30 tablet 10/02/18 Unknown Rx QUEtiapine [SEROquel] 400 mg PO HS #30 tablet 10/02/18 Unknown Rx amLODIPine [Norvasc] 10 mg PO QDAY #30 tablet 10/02/18 Unknown Rx levoFLOXacin [Levaquin TAB] 500 mg PO DAILY 7 Days #3 tablet 10/02/18 Unknown Rx predniSONE [Deltasone] 3 tab PO QDAY 5 Days #15 tab 10/02/18 Unknown Rx rOPINIRole [Requip] 0.5 mg PO QHS #30 tablet 10/02/18 Unknown Rx Azithromycin [Zithromax Z-JAYY] 250 mg PO DAILY #6 tab 01/09/19 Unknown Rx traMADol [Ultram] 50 mg PO Q6HR PRN #12 tablet 01/09/19 Unknown Rx Allergies Allergy/AdvReac Type Severity Reaction Status Date / Time Iodinated Contrast- Oral and Allergy Itching Verified 01/09/19 17:24 IV Dye [Iodinated Contrast Media - IV Dye] ivp dye Allergy Itching Uncoded 10/05/17 08:23 ED Review of Systems ROS: Stated complaint: LFT GROIN/RT ARM PAIN Other details as noted in HPI Constitutional: denies: chills, fever Eyes: denies: eye pain, eye discharge, vision change ENT: denies: ear pain, throat pain Respiratory: denies: cough, shortness of breath, wheezing Cardiovascular: denies: chest pain, palpitations Endocrine: no symptoms reported Gastrointestinal: abdominal pain. denies: nausea, vomiting, diarrhea, constipation Genitourinary: denies: urgency, dysuria, frequency, hematuria, discharge Musculoskeletal: back pain (chronic no change ), arthralgia, myalgia. denies: joint swelling Skin: denies: rash, lesions Neurological: denies: headache, weakness, paresthesias Psychiatric: as per HPI Hematological/Lymphatic: denies: easy bleeding, easy bruising ED Past Medical Hx - Past Medical History Hx Hypertension: Yes Hx GERD: Yes Hx Liver Disease: Yes (HEP C, cirrohsis) Hx Arthritis: Yes Hx Psychiatric Treatment: Yes (depression) Hx COPD: Yes (oxygen dependent) Hx Dementia: Yes (POOR MEMORY , ON MEDS) Additional medical history: osteoporosis, sleep apnea/cpap @ night, Home O2-3L, emphysema - Surgical History Hx Cholecystectomy: Yes Additional Surgical History: thyroid surg t&a - Social History Smoking Status: Current Every Day Smoker Substance Use Type: None - Medications Home Medications: Home Medications Medication Instructions Recorded Confirmed Last Taken Type Disulfiram (Nf) [Antabuse (Nf)] 250 mg PO DAILY 10/13/13 09/29/18 1 Day Ago His tory ~10/05/17 Arformoterol Nebu [Brovana Nebu] 15 mcg IH Q12HRT #60 ml 10/08/17 09/29/18 Un known Rx Ipratropium/Albuterol Sulfate 1 ampul IH Q6HRT PRN #100 ampul.neb 10/08/17 09/29/18 Unknown Rx [DUONEB *Not for PRN Use*] Quetiapine Fumarate [SEROquel] 400 mg PO HS #30 tablet 10/08/17 09/29/18 Unknown Rx Ropinirole HCl [Requip] 0.5 mg PO HS #30 tablet 10/08/17 09/29/18 Unknown Rx Advil 100 MG tab 1 tab PO BID 12/17/17 09/29/18 12/16/17 History ALBUTEROL NEB's [Proventil 0.083% 2.5 mg IH Q4HRT PRN #100 nebu 10/02/18 Unknown Rx NEBS] ALPRAZolam [Xanax TAB] 1 mg PO BID #60 tablet 10/02/18 Unknown Rx Apixaban [Eliquis] 5 mg PO Q12HR #60 tablet 10/02/18 Unknown Rx Arformoterol Nebu [Brovana Nebu] 15 mcg IH Q12HRT #60 ml 10/02/18 Unknown Rx Budesonide [Pulmicort Respules] 0.5 mg IH Q12HRT #60 nebu 10/02/18 Unknown Rx Donepezil [Aricept] 10 mg PO QHS #30 tablet 10/02/18 Unknown Rx Famotidine [Pepcid] 20 mg PO BID PRN #60 tablet 10/02/18 Unknown Rx Gabapentin [Neurontin] 300 mg PO BID PRN #60 capsule 10/02/18 Unknown Rx Ibuprofen [Motrin 600 MG tab] 600 mg PO Q12H PRN #12 tablet 10/02/18 Unknown Rx PARoxetine [Paxil] 40 mg PO DAILY #30 tablet 10/02/18 Unknown Rx Potassium Chloride [K-Dur] 20 meq PO QDAY #30 tablet 10/02/18 Unknown Rx QUEtiapine [SEROquel] 400 mg PO HS #30 tablet 10/02/18 Unknown Rx amLODIPine [Norvasc] 10 mg PO QDAY #30 tablet 10/02/18 Unknown Rx levoFLOXacin [Levaquin TAB] 500 mg PO DAILY 7 Days #3 tablet 10/02/18 Unknown Rx predniSONE [Deltasone] 3 tab PO QDAY 5 Days #15 tab 10/02/18 Unknown Rx rOPINIRole [Requip] 0.5 mg PO QHS #30 tablet 10/02/18 Unknown Rx Azithromycin [Zithromax Z-JAYY] 250 mg PO DAILY #6 tab 01/09/19 Unknown Rx traMADol [Ultram] 50 mg PO Q6HR PRN #12 tablet 01/09/19 Unknown Rx ED Physical Exam - General Limitations: No Limitations General appearance: alert, in no apparent distress - Head Head exam: Present: atraumatic, normocephalic - Eye Eye exam: Present: normal appearance, PERRL, EOMI Pupils: Present: normal accommodation - ENT ENT exam: Present: mucous membranes moist - Neck Neck exam: Present: normal inspection - Respiratory Respiratory exam: Present: normal lung sounds bilaterally, decreased breath sounds (bilat lower extrems). Absent: respiratory distress, wheezes, stridor, chest wall tenderness - Cardiovascular Cardiovascular Exam: Present: regular rate, normal rhythm, normal heart sounds. Absent: systolic murmur, diastolic murmur, rubs, gallop - GI/Abdominal GI/Abdominal exam: Present: soft, normal bowel sounds - Rectal Rectal exam: Present: deferred - Extremities Exam Extremities exam: Present: normal inspection, full ROM, normal capillary refill. Absent: tenderness, pedal edema, joint swelling - Back Exam Back exam: Present: normal inspection, full ROM. Absent: tenderness, CVA tenderness (R), CVA tenderness (L), muscle spasm, paraspinal tenderness, vertebral tenderness, rash noted - Neurological Exam Neurological exam: Present: alert, oriented X3, CN II-XII intact, normal gait, reflexes normal - Psychiatric Psychiatric exam: Present: normal affect, normal mood - Skin Skin exam: Present: warm, dry, intact, normal color. Absent: rash ED Course Vital Signs 01/09/19 01/09/19 17:30 20:29 Temperature 98.4 F Pulse Rate 81 Respiratory 20 16 Rate Blood Pressure 149/41 O2 Sat by Pulse 96 Oximetry ED Medical Decision Making - Lab Data Result diagrams: 01/09/19 20:05 01/09/19 20:05 Labs 01/09/19 01/09/19 01/09/19 20:05 20:05 22:09 WBC 7.8 RBC 3.45 L Hgb 10.5 Hct 31.8 MCV 92 MCH 31 MCHC 33 RDW 15.8 H Plt Count 238 Lymph % (Auto) 19.1 [place] % (Auto) 8.0 H Eos % (Auto) 4.1 Baso % (Auto) 1.0 Lymph # 1.5 [place] # 0.6 Eos # 0.3 Baso # 0.1 Seg Neutrophils % 67.8 Seg Neutrophils # 5.3 Sodium 138 Potassium 3.9 Chloride 101.0 Carbon Dioxide 27 Anion Gap 14 BUN 6 L Creatinine 0.5 L Estimated GFR > 60 BUN/Creatinine Ratio 12 Glucose 91 Calcium 8.8 Total Bilirubin 0.40 AST 12 ALT 6 L Alkaline Phosphatase 86 Troponin T < 0.010 Total Protein 7.0 Albumin 3.9 Albumin/Globulin Ratio 1.3 Lipase 18 Urine Color Yellow Urine Turbidity Clear Urine pH 7.0 Ur Specific [place] 1.011 Urine Protein <15 mg/dl Urine Glucose (UA) Neg Urine Ketones Neg Urine Blood Neg Urine Nitrite Neg Urine Bilirubin Neg Urine Urobilinogen < 2.0 Ur Leukocyte Esterase Mod Urine WBC (Auto) 8.0 H Urine RBC (Auto) 3.0 U Epithel Cells (Auto) 2.0 Urine Mucus Few - EKG Data EKG shows normal: sinus rhythm, axis, intervals, QRS complexes, ST-T waves Rate: normal - EKG Data When compared to previous EKG there are: no significant change Interpretation: normal EKG (ekg interp by ed attending NSR , no ST Elevated IN, no ectopy ) - Radiology Data Radiology results: report reviewed, image reviewed Findings [facility] [address] [place] [address] XRay Report Signed Patient: RADHA NETTLES MR#: [id number] : 1950 Acct:[id number] Age/Sex: 68 / F ADM Date: 01/09/19 Loc: ED Attending Dr: Ordering Physician: ESME LOREDO NP Date of Service: 01/09/19 Procedure(s): XR chest routine 2V Accession Number(s): [id number] cc: ESME LOREDO NP Fluoro Time In Minutes: PROCEDURE: XR CHEST ROUTINE 2V TECHNIQUE: PA and lateral views of the chest HISTORY: sob COMPARISONS: X-ray dated September 26, 2018. The report of that study is not available for review at the time of this dictation. FINDINGS: There is prominence of the interstitial markings in both lungs with peribronchial thickening similar in appearance to the previous study. There is pulmonary consolidation in the left lower lobe as was demonstrated on the previous study. There is no definite evidence of pleural effusion. The cardiac silhouette is normal size. There is atherosclerotic vascular calcification of the thoracic aorta. The bony structures are notable for levocurvature of the lower thoracic and upper lumbar spine. IMPRESSION: 1. Pulmonary consolidation in the left lower lobe similar in appearance to the previous chest x-ray dated September 26, 2018. CT chest would be helpful for further evaluation. This document is electronically signed by Shelby Rodriguez MD., January 09 2019 08:21:01 PM ET Transcribed By: ED Dictated By: SHELBY RODRIGUEZ MD Electronically Authenticated By: SHELBY RODRIGUEZ MD Signed Date/Time: 01/09/192022 DD/ 07 TD/TT: 01/09/192007 - Medical Decision Making CXR: left lower lobe consolidation seen previously in September 2018 , EKG normal sinus rhythm no change from previous EKGs UA negative for moderate leukocytes and WBCs plan Rocephin 1 g IV piggyback, producing (Z-Jayy) patient has inhalers will see Dr. Griffith in 2 days pt verbalized agreement and understanding of discharge plan pt advises pain is improved 2/10 pt dc''d to home in stable co ndition at this time. Critical care attestation.: If time is entered above; I have spent that time in minutes in the direct care of this critically ill patient, excluding procedure time. ED Disposition Clinical Impression: UTI (urinary tract infection) Qualifiers: Urinary tract infection type: acute cystitis Hematuria presence: without hematuria Qualified Code(s): N30.00 - Acute cystitis without hematuria CAP (community acquired pneumonia) Qualifiers: Laterality: left Lung location: lower lobe of lung Qualified Code(s): J18.1 - Lobar pneumonia, unspecified organism Disposition: DC-01 TO HOME OR SELFCARE Is pt being admited?: No Does the pt Need Aspirin: No Condition: Stable Instructions: Abdominal Pain (ED), Community-acquired Pneumonia (ED), Urinary Tract Infection in Women (ED) Prescriptions: traMADol [Ultram] 50 mg PO Q6HR PRN #12 tablet PRN Reason: Pain Azithromycin [Zithromax Z-JAYY] 250 mg PO DAILY #6 tab Referrals: MITCHELL GUEVARA MD [Staff Physician] - 3-5 Days Forms: Work/School Release Form(ED) Time of Disposition: 23:04
[2019-01-09] MEDS ORDERED: TYLENOL PO ONE (22:45)
[2019-01-09] MEDS ORDERED: TYLENOL ONE (22:47)
[2019-01-09 22:53] LABS: Bilirubin,Urine NEG (Negative); Blood,Urine NEG (Negative); Color,Urine Yellow (Yellow); Mucus,Urine FEW /HPF; Protein,Urine <15 mg/dL mg/dL (Negative); Urobilinogen,Urine < 2.0 mg/dL (<2.0)
[2019-01-09] MEDS ORDERED: XYLOCAINE 1% MPF 5 mL INFILTRATI ONE (22:54)
[2019-01-09] MEDS ORDERED: ROCEPHIN IM ONE (22:54)
== END 2019-01-09 23:35 | disposition home or self-care (01) ==
LOC: ED 17:23
DX: N39.0 Urinary tract infection, site not specified (principal); J18.9 Pneumonia, unspecified organism; J86.9 Pyothorax without fistula; I10 Essential (primary) hypertension; K21.9 Gastro-esophageal reflux disease without esophagitis; G47.30 Sleep apnea, unspecified; F17.200 Nicotine dependence, unspecified, uncomplicated; Z91.041 Radiographic dye allergy status; Z86.19 Personal history of other infectious and parasitic diseases; Z90.49 Acquired absence of other specified parts of digestive tract
CPT/HCPCS: 36415; 71046; 80053; 81001; 83690; 84484; 85025; 93005; 93010; 96372; 99284; J0696; Q0162

== ENCOUNTER 2019-03-11 11:59 | Inpatient (IN) | payer MEDICARE ==
[2019-03-11] MEDS ORDERED: ULTRAM PO ONE (12:20)
--- NOTE | 2019-03-11 12:28 | Emergency Department Report ---
ED Fall HPI - General Stated Complaint: KNEE PAIN Time Seen by Provider: 03/11/19 12:19 - History of Present Illness Initial Comments: Mrs. Hess is a 68-year-old female with history of COPD, pulmonary embolism, hepatitis C, liver cirrhosis, osteoarthritis in both knees, tobacco abuse, chronic abdominal pain, recurrent chest pain, dementia, oxygen dependence 3L [place] who presents with fall last night. called 911 for history of fall. She has small bruising of the right eyebrow. She has right knee pain. She has diffuse pain. She states she just doesn't feel well. She also has "liver pain". Her PCP is Dr. Iqbal. Mrs. Hess does not recall falling. She gives limited medical history due to dementia. Medical history obtained from electronic medical record. Diane Hernandez discharge summary, she was diagnosed with pulmonary embolism. Placed on Eliquis at that time by her PCP. MD Complaint: fall -: Last night When Fall Occurred: unsure Fall Witnessed: yes, by family Place Fall Occurred: home Loss of Consciousness: unsure Prolonged Down Time?: no Symptoms Prior to Fall: none Location - Extremities: Right: Knee Severity: moderate Context: history of frequent falls Associated Symptoms: denies - Related Data Home Medications Medication Instructions Recorded Confirmed Last Taken Disulfiram (Nf) [Antabuse (Nf)] 250 mg PO DAILY 10/13/13 09/29/18 1 Day Ago ~10/05/17 Advil 100 MG tab 1 tab PO BID 12/17/17 09/29/18 12/16/17 Previous Rx's Medication Instructions Recorded Last Taken Type Arformoterol Nebu [Brovana Nebu] 15 mcg IH Q12HRT #60 ml 10/08/17 Unknown Rx Ipratropium/Albuterol Sulfate 1 ampul IH Q6HRT PRN #100 ampul.neb 10/08/17 Unknown Rx [DUONEB *Not for PRN Use*] Quetiapine Fumarate [SEROquel] 400 mg PO HS #30 tablet 10/08/17 Unknown Rx Ropinirole HCl [Requip] 0.5 mg PO HS #30 tablet 10/08/17 Unknown Rx ALBUTEROL NEB's [Proventil 0.083% 2.5 mg IH Q4HRT PRN #100 nebu 10/02/18 Unknown Rx NEBS] ALPRAZolam [Xanax TAB] 1 mg PO BID #60 tablet 10/02/18 Unknown Rx Apixaban [Eliquis] 5 mg PO Q12HR #60 tablet 10/02/18 Unknown Rx Arformoterol Nebu [Brovana Nebu] 15 mcg IH Q12HRT #60 ml 10/02/18 Unknown Rx Budesonide [Pulmicort Respules] 0.5 mg IH Q12HRT #60 nebu 10/02/18 Unknown Rx Donepezil [Aricept] 10 mg PO QHS #30 tablet 10/02/18 Unknown Rx Famotidine [Pepcid] 20 mg PO BID PRN #60 tablet 10/02/18 Unknown Rx Gabapentin [Neurontin] 300 mg PO BID PRN #60 capsule 10/02/18 Unknown Rx Ibuprofen [Motrin 600 MG tab] 600 mg PO Q12H PRN #12 tablet 10/02/18 Unknown Rx PARoxetine [Paxil] 40 mg PO DAILY #30 tablet 10/02/18 Unknown Rx Potassium Chloride [K-Dur] 20 meq PO QDAY #30 tablet 10/02/18 Unknown Rx QUEtiapine [SEROquel] 400 mg PO HS #30 tablet 10/02/18 Unknown Rx amLODIPine [Norvasc] 10 mg PO QDAY #30 tablet 10/02/18 Unknown Rx levoFLOXacin [Levaquin TAB] 500 mg PO DAILY 7 Days #3 tablet 10/02/18 Unknown Rx predniSONE [Deltasone] 3 tab PO QDAY 5 Days #15 tab 10/02/18 Unknown Rx rOPINIRole [Requip] 0.5 mg PO QHS #30 tablet 10/02/18 Unknown Rx Azithromycin [Zithromax Z-FRANCOIS] 250 mg PO DAILY #6 tab 01/09/19 Unknown Rx traMADol [Ultram] 50 mg PO Q6HR PRN #12 tablet 01/09/19 Unknown Rx Allergies Allergy/AdvReac Type Severity Reaction Status Date / Time Iodinated Contrast- Oral and Allergy Itching Verified 01/09/19 17:24 IV Dye [Iodinated Contrast Media - IV Dye] ivp dye Allergy Itching Uncoded 10/05/17 08:23 ED Review of Systems ROS: Stated complaint: KNEE PAIN Other details as noted in HPI Comment: All other systems reviewed and negative Constitutional: malaise. denies: fever Respiratory: denies: cough, shortness of breath Musculoskeletal: arthralgia ED Past Medical Hx - Past Medical History Previous Medical History?: Yes Hx Hypertension: Yes Hx GERD: Yes Hx Liver Disease: Yes (HEP C, cirrohsis) Hx Arthritis: Yes Hx Psychiatric Treatment: Yes (depression) Hx COPD: Yes (oxygen dependent) Hx Dementia: Yes (POOR MEMORY , ON MEDS) Additional medical history: osteoporosis, sleep apnea/cpap @ night, Home O2-3L, emphysema - Surgical History Hx Cholecystectomy: Yes Additional Surgical History: thyroid surg t&a - Social History Smoking Status: Current Every Day Smoker Substance Use Type: None - Medications Home Medications: Home Medications Medication Instructions Recorded Confirmed Last Taken Type Disulfiram (Nf) [Antabuse (Nf)] 250 mg PO DAILY 10/13/13 09/29/18 1 Day Ago History ~10/05/17 Arformoterol Nebu [Brovana Nebu] 15 mcg IH Q12HRT #60 ml 10/08/17 09/29/18 Unknown Rx Ipratropium/Albuterol Sulfate 1 ampul IH Q6HRT PRN #100 ampul.neb 10/08/17 09/29/18 Unknown Rx [DUONEB *Not for PRN Use*] Quetiapine Fumarate [SEROquel] 400 mg PO HS #30 tablet 10/08/17 09/29/18 Unknown Rx Ropinirole HCl [Requip] 0.5 mg PO HS #30 tablet 10/08/17 09/29/18 Unknown Rx Advil 100 MG tab 1 tab PO BID 12/17/17 09/29/18 12/16/17 History ALBUTEROL NEB's [Proventil 0.083% 2.5 mg IH Q4HRT PRN #100 nebu 10/02/18 Unknown Rx NEBS] ALPRAZolam [Xanax TAB] 1 mg PO BID #60 tablet 10/02/18 Unknown Rx Apixaban [Eliquis] 5 mg PO Q12HR #60 tablet 10/02/18 Unknown Rx Arformoterol Nebu [Brovana Nebu] 15 mcg IH Q12HRT #60 ml 10/02/18 Unknown Rx Budesonide [Pulmicort Respules] 0.5 mg IH Q12HRT #60 nebu 10/02/18 Unknown Rx Donepezil [Aricept] 10 mg PO QHS #30 tablet 10/02/18 Unknown Rx Famotidine [Pepcid] 20 mg PO BID PRN #60 tablet 10/02/18 Unknown Rx Gabapentin [Neurontin] 300 mg PO BID PRN #60 capsule 10/02/18 Unknown Rx Ibuprofen [Motrin 600 MG tab] 600 mg PO Q12H PRN #12 tablet 10/02/18 Unknown Rx PARoxetine [Paxil] 40 mg PO DAILY #30 tablet 10/02/18 Unknown Rx Potassium Chloride [K-Dur] 20 meq PO QDAY #30 tablet 10/02/18 Unknown Rx QUEtiapine [SEROquel] 400 mg PO HS #30 tablet 10/02/18 Unknown Rx amLODIPine [Norvasc] 10 mg PO QDAY #30 tablet 10/02/18 Unknown Rx levoFLOXacin [Levaquin TAB] 500 mg PO DAILY 7 Days #3 tablet 10/02/18 Unknown Rx predniSONE [Deltasone] 3 tab PO QDAY 5 Days #15 tab 10/02/18 Unknown Rx rOPINIRole [Requip] 0.5 mg PO QHS #30 tablet 10/02/18 Unknown Rx Azithromycin [Zithromax Z-FRANCOIS] 250 mg PO DAILY #6 tab 01/09/19 Unknown Rx traMADol [Ultram] 50 mg PO Q6HR PRN #12 tablet 01/09/19 Unknown Rx ED Physical Exam - General General appearance: alert, in no apparent distress, other (appears anxious, appears chronically ill, otherwise no acute distress) - Head Head exam: Present: normocephalic, other (2 cm ecchymoses lateral portion of right elbow) - Eye Eye exam: Present: normal appearance. Absent: scleral icterus, conjunctival injection - ENT ENT exam: Present: mucous membranes moist - Neck Neck exam: Present: normal inspection, full ROM - Respiratory Respiratory exam: Present: rales, rhonchi. Absent: respiratory distress, wheezes, accessory muscle use, prolonged expiratory - Cardiovascular Cardiovascular Exam: Present: regular rate, normal rhythm, normal heart sounds. Absent: systolic murmur, diastolic murmur, rubs, gallop - GI/Abdominal GI/Abdominal exam: Present: soft, normal bowel sounds. Absent: distended, tenderness, guarding - Extremities Exam Extremities exam: Present: other (right knee: exquisitely tender to touch, Surgical scar in place no erythema mild swelling no deformity left knee surgical scar) - Neurological Exam Neurological exam: Present: alert, oriented X3 - Psychiatric Psychiatric exam: Present: normal affect, anxious - Skin Skin exam: Present: warm, dry, intact, normal color. Absent: rash ED Course Vital Signs 03/11/19 03/11/19 12:16 12:31 Temperature 99.3 F Pulse Rate 70 Respiratory 15 15 Rate Blood Pressure 135/59 O2 Sat by Pulse 96 97 Oximetry ED Medical Decision Making - Lab Data Result diagrams: 03/11/19 13:16 03/11/19 13:16 Laboratory Results - last 24 hr 03/11/19 03/11/19 13:16 13:16 WBC 5.8 RBC 3.57 L Hgb 10.8 Hct 31.6 MCV 88 MCH 30 MCHC 34 RDW 15.1 Plt Count 211 Lymph % (Auto) 17.6 [place] % (Auto) 13.7 H Eos % (Auto) 1.4 Baso % (Auto) 1.3 Lymph # 1.0 L [place]eves # 0.8 Eos # 0.1 Baso # 0.1 Seg Neutrophils % 66.0 Seg Neutrophils # 3.8 Sodium 133 L Chloride 96.7 L Carbon Dioxide 24 BUN 6 L Creatinine 0.4 L Estimated GFR > 60 BUN/Creatinine Ratio 15 Glucose 94 Calcium 8.4 Total Bilirubin 0.90 Alkaline Phosphatase 84 Total Protein 7.2 Albumin 3.8 L Albumin/Globulin Ratio 1.1 - EKG Data -: EKG Interpreted by Me EKG shows normal: sinus rhythm, axis, intervals, QRS complexes, ST-T waves Rate: normal - EKG Data 03/11/19 12:30 EKG obtained 1226 NSR nl rate nl axis nl intervals no ST-T signs of ischemia no ST elevation rate 70 beats a minute - Radiology Data Radiology results: report reviewed Right knee: Fracture line surrounding the prosthesis reflective of acute nondisplaced fracture CT head: No acute process - Medical Decision Making Mrs. Hess presents with a fall at home last night. EMS was called by her hus band. There is a small bruise noted at the right face. She also states that she has right knee pain and "liver" pain. Distal femur fracture seen on radiographs, Right knee immobilizer was applied to the affected extremity under my supervision. After application the extremity was neurovascularly intact with acceptable alignment. I have consulted Dr. Torres orthopedic surgeon. Dr. Iqbal PCP will admit for further treatment and evaluation Critical care attestation.: If time is entered above; I have spent that time in minutes in the direct care of this critically ill patient, excluding procedure time. ED Disposition Clinical Impression: Fracture, femur, distal, Closed head injury, Facial contusion Disposition: OP ADMIT IP TO THIS HOSP Is pt being admited?: Yes Does the pt Need Aspirin: No Condition: Stable Referrals: ANDERSON VELEZ MD [Primary Care Provider] - 3-5 Days
--- NOTE | 2019-03-11 12:54 | XRay Report ---
RIGHT KNEE, 3 views: History: Right knee pain, fall Mild osteopenia is evident. There has been previous right knee replacement. Subtle nondisplaced fracture lines are identified in the distal femoral shaft consistent with an acute fracture. The proximal tibia and fibula are intact. The soft tissues are unremarkable. IMPRESSION: Osteopenia. Nondisplaced distal femur fracture.
[2019-03-11] MEDS ORDERED: MORPHINE IV ONE ×2 (13:11→14:56)
[2019-03-11] MEDS ORDERED: ZOFRAN IV ONE (13:12)
[2019-03-11 13:43] LABS: Basophils # (Auto) 0.1 K/mm3 (0.0-0.1); Basophils % (Auto) 1.3 % (0.0-1.8); Eosinophils # (Auto) 0.1 K/mm3 (0.0-0.4); Eosinophils % (Auto) 1.4 % (0.0-4.3); Hematocrit 31.6 % (30.3-42.9); Hemoglobin 10.8 gm/dl (10.1-14.3); Lymphocytes % (Auto) 17.6 % (13.4-35.0); Mean Corpuscular HGB Conc 34 % (30-34); Mean Corpuscular Volume 88 fl (79-97); Monocytes # (Auto) 0.8 K/mm3 (0.0-0.8); Monocytes % (Auto) 13.7 % (0.0-7.3); Platelet Count 211 K/mm3 (140-440); Red Blood Count 3.57 M/mm3 (3.65-5.03); Red Cell Distribution Width 15.1 % (13.2-15.2)
--- NOTE | 2019-03-11 14:01 | XRay Report ---
AP CHEST: HISTORY: Femur fracture AP view of the chest demonstrates a normal mediastinal and cardiac contour with clear lungs and normal bony and soft tissue structures. IMPRESSION: Unremarkable AP chest.
[2019-03-11 14:03] LABS: Albumin 3.8 g/dL (3.9-5); BUN/Creatinine Ratio 15; Blood Urea Nitrogen 6 mg/dL (7-17); Calcium 8.4 mg/dL (8.4-10.2); Hemolysis Index 123
[2019-03-11 15:00] LABS: Alanine Aminotransferase 11 units/L (7-56)
--- NOTE | 2019-03-11 15:06 | Cat Scan Report ---
CT HEAD WITHOUT CONTRAST: HISTORY: Fall, head injury. TECHNIQUE: Sequential 2.5mm CT images. COMPARISON: 09/30/18. FINDINGS: Cerebral Parenchyma: Within normal limits. Cerebellum: Within normal limits. Brainstem: Within normal limits. Ventricles: Normal. Sella: Normal. Extra-axial spaces: Normal. Basal Cisterns: Normal. Intracranial Hemorrhage: None. Midline Shift: None. Calvarium: Normal. Sinuses: Normal. Mastoid Air Cells: Normal. Visualized Orbits: Normal. IMPRESSION: Cranial CT scan within normal limits.
--- NOTE | 2019-03-11 22:02 | History and Physical Report ---
History of Present Illness Date of examination: 03/11/19 Date of admission: 03/11/19 14:41 Chief complaint: Pain right leg - 1 day History of present illness: Patient is a 68-year-old female with history of COPD on home oxygen at 3L via [place], pulmonary embolism, hepatitis C, liver cirrhosis, osteoarthritis in both knees, tobacco abuse, chronic abdominal pain, recurrent chest pain, dementia, who presented to the on account of falling at home last night with s ubsequent pain in the right leg. Her call [facility] medical service and was jess to the ED. Patient does not remember falling as a result of her dementia. She has small bruising of the right eyebrow. She has diffud\se right leg and knee pain. Xray of the right thigh at the ED showed non displaced fracture of the right femur. CXR was unremarkable for any acute event. CT of the head was normal. Orthopedic surgeon was consult in the ED. Past History Past Medical History: COPD, hypertension Social history: , lives with family, smoking, alcohol abuse Family history: no significant family history Medications and Allergies Allergies Allergy/AdvReac Type Severity Reaction Status Date / Time Iodinated Contrast- Oral and Allergy Itching Verified 01/09/19 17:24 IV Dye [Iodinated Contrast Media - IV Dye] ivp dye Allergy Itching Uncoded 10/05/17 08:23 Home Medications Medication Instructions Recorded Confirmed Last Taken Type Quetiapine Fumarate [SEROquel] 400 mg PO HS #30 tablet 10/08/17 03/11/19 Unknown Rx ALPRAZolam [Xanax TAB] 1 mg PO BID #60 tablet 10/02/18 03/11/19 Unknown Rx ALBUTEROL NEB's [Proventil 0.083% 2.5 mg IH QID PRN 03/11/19 03/11/19 Unknown History NEBS] Apixaban [Eliquis] 5 mg PO BID 03/11/19 03/11/19 Unknown History Donepezil [Aricept] 5 mg PO QHS 03/11/19 03/11/19 Unknown History Omeprazole 20 mg PO QDAY 03/11/19 03/11/19 Unknown History PARoxetine HCl [PARoxetine] 40 mg PO QDAY 03/11/19 03/11/19 Unknown History Propranolol LA [Inderal LA] 60 mg PO QDAY 03/11/19 03/11/19 Unknown History Simvastatin 20 mg PO HS 03/11/19 03/11/19 Unknown History Active Meds: Review of systems Constitutional: Well Nourished and Well developed. Head: NC/ AT Eyes: Denies any visual impairments. No discharge from the eyes Nose: Denies any rhinorrhea or epistaxis Throats: Denies any post nasal drainage. Ears: Denies any hearing deficits Cardiovascular system: Denies any chest pain, shortness of breath, orthopnea, paroxysmal nocturnal dyspnea, or palpitation. Respiratory system: Denies any cough, difficulty breathing, wheezing, pleuritic chest pain, Gastrointestinal system: Denies any abdominal pain, nausea vomiting, hematemesis or melena. Neurological system: Denies any headache, slurred speech, facial droop, lateralizing weakness Genitalia system: Denies any dysuria, urinary frequency or urgency, urethral discharge Skin: No rashes, hyperpigmented spots. Hematological: Denies any cervical tenderness hemorrhages or petechia. Immunological: Denies any multiple septic spots, Lymphatic: Denies any generalized lymphadenopathy. Endocrine: Denies any polyuria, polydipsia, polyphagia. No heat or cold intolerance. Musculoskeletal system: Right knee pain from fracture off and off the right femoral. Psych: No visual, tactile, auditory or hallucination Exam - Physical Exam Narrative exam: Constitutional: Well-nourished well-developed. In no distress Head: Normocephalic atraumatic Eyes: Pupils are equal round and reactive to light Nose: No enlarged turbinates, no septal deviation. Mouth: Moist mucous membranes. Neck: Supple no thyromegaly. No bruit. No JVD Heart: Regular rate and rhythm, S1-S2 normal. No rubs murmurs or gallop Lungs: Clear to auscultation bilaterally. no rales or rhonchi Abdomen: Soft, nontender. Bowel sound are present. Extremities: Right leg in a splint. No edema, no cyanosis, no clubbing. Neuro: Alert oriented Oriented x2. No focal sensory or motor deficit. Skin: No rashes or hyperpigmented spots Musculoskeletal system: Right knee joint pain from fracture Hematological: No petechia or subcutanous hemorrhages. Immunological: No multiple septic spots on the skin Lymphatic: No generalized lymphadenopathy Psychiatry: Euthymic. Calm. - Constitutional Vitals: Temp Pulse Resp BP Pulse Ox 98.8 F 80 18 120/73 94 03/11/19 16:42 03/11/19 16:42 03/11/19 16:42 03/11/19 16:42 03/11/19 16:42 Results - Labs CBC & Chem 7: 03/12/19 04:32 03/12/19 04:32 Labs: Abnormal lab results 03/11/19 03/11/19 Range/Units 13:16 13:16 RBC 3.57 L (3.65-5.03) M/mm3 Ada % (Auto) 13.7 H (0.0-7.3) % Lymph # 1.0 L (1.2-5.4) K/mm3 Sodium 133 L (137-145) mmol/L Chloride 96.7 L (98-107) mmol/L BUN 6 L (7-17) mg/dL Creatinine 0.4 L (0.7-1.2) mg/dL Albumin 3.8 L (3.9-5) g/dL Assessment and Plan Patient is a 68-year-old female with history of COPD on home oxygen at 3L via [place], pulmonary embolism, hepatitis C, liver cirrhosis, osteoarthritis in both knees, tobacco abuse, chronic abdominal pain, recurrent chest pain, dementia, who presented to the on account of falling at home last night with subsequent pain in the right leg. Her call [facility] medical service and was jess to the ED. Patient does not remember falling as a result of her dementia. She has small bruising of the right eyebrow. She has diffud\se right leg and knee pain. Xray of the right thigh at the ED showed non displaced fracture of the right femur. CXR was unremarkable for any acute event. CT of the head was normal. Orthopedic surgeon was consult in the ED. - Nondisplace fracture of the right femur: Admit to Med surg. Pain control Orthopedic surgeon consulted - H/O COPD on home oxygen continue with bronchodilators and Supplemental oxygen - Dementia Fall precaution - H/o DVT Continue with Eliquis -DVT and GI PPx pt on Eliquis Code status Pt is full code
[2019-03-11] MEDS ORDERED: PROVENTIL IH PRN (22:08)
[2019-03-11] MEDS: PRAVACHOL PO SCH (23:20)
[2019-03-12 05:37] LABS: Eosinophils # (Auto) 0.2 K/mm3 (0.0-0.4); Eosinophils % (Auto) 4.7 % (0.0-4.3); Hemoglobin 10.3 gm/dl (10.1-14.3); Lymphocytes # (Auto) 1.4 K/mm3 (1.2-5.4); Lymphocytes % (Auto) 28.9 % (13.4-35.0); Mean Corpuscular HGB Conc 34 % (30-34); Mean Corpuscular Volume 89 fl (79-97); Monocytes # (Auto) 0.6 K/mm3 (0.0-0.8); Monocytes % (Auto) 13.1 % (0.0-7.3); Platelet Count 179 K/mm3 (140-440); Red Blood Count 3.38 M/mm3 (3.65-5.03); Red Cell Distribution Width 15.1 % (13.2-15.2)
[2019-03-12 06:04] LABS: Alanine Aminotransferase 8 units/L (7-56); Albumin 3.7 g/dL (3.9-5); BUN/Creatinine Ratio 18; Blood Urea Nitrogen 9 mg/dL (7-17); Calcium 8.7 mg/dL (8.4-10.2); Hemolysis Index 4
--- NOTE | 2019-03-12 08:25 | Progress Note ---
Assessment and Plan Patient is a 68-year-old female with history of COPD on home oxygen at 3L via [place], pulmonary embolism, hepatitis C, liver cirrhosis, osteoarthritis in both knees, tobacco abuse, chronic abdominal pain, recurrent chest pain, dementia, who presented to the on account of falling at home last night with subsequent pain in the right leg. Her call [facility] medical service and was jess to the ED. Patient does not remember falling as a result of her dementia. She has small bruising of the right eyebrow. She has diffud\se right leg and knee pain. Xray of the right thigh at the ED showed non displaced fracture of the right femur. CXR was unremarkable for any acute event. CT of the head was normal. Orthopedic surgeon was consult in the ED. - Nondisplace fracture of the right femur: Pain control Orthopedic surgeon consulted. - H/O COPD on home oxygen continue with bronchodilators and Supplemental oxygen - Dementia Fall precaution - H/o DVT Continue with Eliquis -DVT and GI PPx pt on Eliquis Code status Pt is full code Subjective Date of service: 03/12/19 Principal diagnosis: distal femoral fracture right leg Interval history: lying quietly in bed. no new complain. Objective - Exam Narrative Exam: Constitutional: Well-nourished well-developed. In no distress Head: Normocephalic atraumatic Eyes: Pupils are equal round and reactive to light Nose: No enlarged turbinates, no septal deviation. Mouth: Moist mucous membranes. Neck: Supple no thyromegaly. No bruit. No JVD Heart: Regular rate and rhythm, S1-S2 normal. No rubs murmurs or gallop Lungs: Clear to auscultation bilaterally. no rales or rhonchi Abdomen: Soft, nontender. Bowel sound are present. Extremities: Right leg in a splint. No edema, no cyanosis, no clubbing. Neuro: Alert oriented Oriented x2. No focal sensory or motor deficit. Skin: No rashes or hyperpigmented spots Musculoskeletal system: Right knee joint pain from fracture Hematological: No petechia or subcutanous hemorrhages. Immunological: No multiple septic spots on the skin Lymphatic: No generalized lymphadenopathy Psychiatry: Euthymic. Calm. - Constitutional Vitals: Vital Signs - 12hr 03/11/19 03/12/19 03/12/19 22:00 00:30 04:50 Temperature 98.5 F Pulse Rate 74 81 Respiratory 17 20 Rate Respiratory 17 Rate [ Generalized] Respiratory 16 Rate [Right Leg ] Blood Pressure 122/58 Blood Pressure 128/68 [Left] O2 Sat by Pulse 94 91 Oximetry - Labs CBC & Chem 7: 03/12/19 04:32 03/12/19 04:32 Labs: Abnormal lab results 03/11/19 03/11/19 03/12/19 Range/Units 13:16 13:16 04:32 RBC 3.57 L 3.38 L (3.65-5.03) M/mm3 Hct 30.0 L (30.3-42.9) % [place] % (Auto) 13.7 H 13.1 H (0.0-7.3) % Eos % (Auto) 4.7 H (0.0-4.3) % Lymph # 1.0 L (1.2-5.4) K/mm3 Sodium 133 L (137-145) mmol/L Chloride 96.7 L (98-107) mmol/L BUN 6 L (7-17) mg/dL Creatinine 0.4 L (0.7-1.2) mg/dL Glucose (65-100) mg/dL Albumin 3.8 L (3.9-5) g/dL 03/12/19 Range/Units 04:32 RBC (3.65-5.03) M/mm3 Hct (30.3-42.9) % [place] % (Auto) (0.0-7.3) % Eos % (Auto) (0.0-4.3) % Lymph # (1.2-5.4) K/mm3 Sodium (137-145) mmol/L Chloride (98-107) mmol/L BUN (7-17) mg/dL Creatinine 0.5 L (0.7-1.2) mg/dL Glucose 106 H (65-100) mg/dL Albumin 3.7 L (3.9-5) g/dL
[2019-03-12] MEDS ORDERED: XANAX PO SCH (10:00)
[2019-03-12] MEDS: PEPCID IV SCH (10:49)
[2019-03-12] MEDS: MORPHINE IV PRN ×3 (10:54→22:43)
[2019-03-12] MEDS: INDERAL LA PO SCH (10:56)
[2019-03-12] MEDS: PAXIL PO SCH (10:56)
[2019-03-12] MEDS: ELIQUIS PO SCH ×2 (10:56→22:34)
--- NOTE | 2019-03-12 14:45 | Consultation ---
History of Present Illness - [facility] Consult date: 03/12/19 Consult reason: fracture History of present illness: 68-year-old female with history of COPD on home oxygen at 3L via [place], pulmonary embolism, hepatitis C, liver cirrhosis, osteoarthritis in both knees, tobacco abuse, chronic abdominal pain, recurrent chest pain, dementia, who presented to the on account of falling at home last night with subsequent pain in the right leg. Her call [facility] medical service and was jess to the ED. Xray of the right thigh at the ED showed non displaced fracture of the right distal femur. Past History Past Medical History: COPD, hypertension Social history: , lives with family, smoking, alcohol abuse Family history: no significant family history Medications and Allergies Allergies Allergy/AdvReac Type Severity Reaction Status Date / Time Iodinated Contrast- Oral and Allergy Itching Verified 01/09/19 17:24 IV Dye [Iodinated Contrast Media - IV Dye] ivp dye Allergy Itching Uncoded 10/05/17 08:23 Home Medications Medication Instructions Recorded Confirmed Last Taken Type Quetiapine Fumarate [SEROquel] 400 mg PO HS #30 tablet 10/08/17 03/11/19 Unknown Rx ALPRAZolam [Xanax TAB] 1 mg PO BID #60 tablet 10/02/18 03/11/19 Unknown Rx ALBUTEROL NEB's [Proventil 0.083% 2.5 mg IH QID PRN 03/11/19 03/11/19 Unknown History NEBS] Apixaban [Eliquis] 5 mg PO BID 03/11/19 03/11/19 Unknown History Donepezil [Aricept] 5 mg PO QHS 03/11/19 03/11/19 Unknown History Omeprazole 20 mg PO QDAY 03/11/19 03/11/19 Unknown History PARoxetine HCl [PARoxetine] 40 mg PO QDAY 03/11/19 03/11/19 Unknown History Propranolol LA [Inderal LA] 60 mg PO QDAY 03/11/19 03/11/19 Unknown History Simvastatin 20 mg PO HS 03/11/19 03/11/19 Unknown History Active Meds: Active Medications Albuterol (Proventil) 2.5 mg IH QIDRT PRN PRN Reason: Shortness Of Breath Apixaban (Eliquis) 5 mg PO BID [facility]; Protocol Last Admin: 03/12/19 10:56 Dose: 5 mg Documented by: Donepezil HCl (Aricept) 5 mg PO QHS [facility] Last Admin: 03/12/19 00:00 Dose: Not Given Documented by: Famotidine (Pepcid) 20 mg IV QDAY [facility] Last Admin: 03/12/19 10:49 Dose: 20 mg Documented by: Morphine Sulfate (Morphine) 2 mg IV Q4H PRN PRN Reason: Pain, Moderate (4-6) Last Admin: 03/12/19 10:54 Dose: 2 mg Documented by: Paroxetine HCl (Paxil) 40 mg PO QDAY [facility] Last Admin: 03/12/19 10:56 Dose: 40 mg Documented by: Pravastatin Sodium (Pravachol) 40 mg PO [facility] Last Admin: 03/11/19 23:20 Dose: 40 mg Documented by: Propranolol HCl (Inderal La) 60 mg PO QDAY [facility] Last Admin: 03/12/19 10:56 Dose: 60 mg Documented by: Quetiapine Fumarate (Seroquel) 400 mg PO [facility] Last Admin: 03/11/19 22:38 Dose: 400 mg Documented by: Physical Examination - Physical exam Narrative exam: Right LE - mild swelling, no obvious deformity, skin intact, tender along distal thigh, distal n/v intact... Assessment and Plan nondisplaced fracture distal femur Recommend- conservative treatment with knee immobilizer and PT bed to chair transfers
[2019-03-12] MEDS: PRAVACHOL PO SCH (22:34)
[2019-03-12] MEDS: ARICEPT PO SCH ×2 (22:34)
[2019-03-13 05:26] LABS: Basophils # (Auto) 0.1 K/mm3 (0.0-0.1); Basophils % (Auto) 0.9 % (0.0-1.8); Eosinophils # (Auto) 0.2 K/mm3 (0.0-0.4); Eosinophils % (Auto) 4.4 % (0.0-4.3); Hematocrit 27.4 % (30.3-42.9); Hemoglobin 9.2 gm/dl (10.1-14.3); Lymphocytes # (Auto) 1.4 K/mm3 (1.2-5.4); Lymphocytes % (Auto) 24.7 % (13.4-35.0); Mean Corpuscular HGB Conc 34 % (30-34); Mean Corpuscular Volume 90 fl (79-97); Monocytes # (Auto) 0.7 K/mm3 (0.0-0.8); Platelet Count 172 K/mm3 (140-440); Red Blood Count 3.04 M/mm3 (3.65-5.03); Red Cell Distribution Width 15.2 % (13.2-15.2)
[2019-03-13 05:53] LABS: Alanine Aminotransferase 7 units/L (7-56); Albumin 3.5 g/dL (3.9-5); BUN/Creatinine Ratio 24; Blood Urea Nitrogen 12 mg/dL (7-17); Calcium 8.5 mg/dL (8.4-10.2); Hemolysis Index 4
[2019-03-13] MEDS: MORPHINE IV PRN ×3 (06:04→16:58)
[2019-03-13] MEDS: PEPCID IV SCH ×2 (07:59→09:06)
[2019-03-13] MEDS: INDERAL LA PO SCH ×2 (07:59→09:07)
[2019-03-13] MEDS: PAXIL PO SCH ×2 (07:59→09:07)
[2019-03-13] MEDS: ELIQUIS PO SCH ×2 (10:10→21:46)
--- NOTE | 2019-03-13 11:46 | Progress Note ---
Assessment and Plan Patient is a 68-year-old female with history of COPD on home oxygen at 3L via [place], pulmonary embolism, hepatitis C, liver cirrhosis, osteoarthritis in both knees, tobacco abuse, chronic abdominal pain, recurrent chest pain, dementia, who presented to the on account of falling at home last night with subsequent pain in the right leg. Her call [facility] medical service and was jess to the ED. Patient does not remember falling as a result of her dementia. She has small bruising of the right eyebrow. She has diffud\se right leg and knee pain. Xray of the right thigh at the ED showed non displaced fracture of the right femur. CXR was unremarkable for any acute event. CT of the head was normal. Orthopedic surgeon was consult in the ED. - Nondisplace fracture of the right femur: Pain control Orthopedic surgeon consulted. conservative Mx with right knee immobilization recommended - H/O COPD on home oxygen continue with bronchodilators and Supplemental oxygen - Dementia Fall precaution - Hypokalemia: will Supplement - H/o DVT Continue with Eliquis -DVT and GI PPx pt on Eliquis Code status Pt is full code Disposition: Rehab placement Subjective Date of service: 03/13/19 Principal diagnosis: distal femoral fracture right leg Interval history: lying quietly in bed. no new complain. Afebrile Objective - Exam Narrative Exam: Constitutional: Well-nourished well-developed. In no distress Head: Normocephalic atraumatic Eyes: Pupils are equal round and reactive to light Nose: No enlarged turbinates, no septal deviation. Mouth: Moist mucous membranes. Neck: Supple no thyromegaly. No bruit. No JVD Heart: Regular rate and rhythm, S1-S2 normal. No rubs murmurs or gallop Lungs: Clear to auscultation bilaterally. no rales or rhonchi Abdomen: Soft, nontender. Bowel sound are present. Extremities: Right leg in a splint. No edema, no cyanosis, no clubbing. Neuro: Alert oriented Oriented x2. No focal sensory or motor deficit. Skin: No rashes or hyperpigmented spots Musculoskeletal system: Right knee joint pain from fracture Hematological: No petechia or subcutanous hemorrhages. Immunological: No multiple septic spots on the skin Lymphatic: No generalized lymphadenopathy Psychiatry: Euthymic. Calm. - Constitutional Vitals: Vital Signs - 12hr 03/13/19 03/13/19 03/13/19 00:47 04:27 07:29 Temperature 98.5 F 98.9 F 98.7 F Pulse Rate 83 73 71 Respiratory 20 20 18 Rate Blood Pressure 99/48 105/54 119/46 O2 Sat by Pulse 91 89 90 Oximetry 03/13/19 03/13/19 07:59 08:45 Temperature Pulse Rate 71 Respiratory 18 Rate Blood Pressure 119/46 O2 Sat by Pulse 90 Oximetry - Labs CBC & Chem 7: 03/13/19 04:18 03/13/19 04:18 Labs: Abnormal lab results 03/13/19 03/13/19 Range/Units 04:18 04:18 RBC 3.04 L (3.65-5.03) M/mm3 Hgb 9.2 L (10.1-14.3) gm/dl Hct 27.4 L (30.3-42.9) % [place] % (Auto) 12.0 H (0.0-7.3) % Eos % (Auto) 4.4 H (0.0-4.3) % Potassium 3.5 L (3.6-5.0) mmol/L Creatinine 0.5 L (0.7-1.2) mg/dL Glucose 102 H (65-100) mg/dL Albumin 3.5 L (3.9-5) g/dL
[2019-03-13] MEDS: K-DUR PO SCH (12:03)
[2019-03-13] MEDS: PRAVACHOL PO SCH (21:04)
[2019-03-13] MEDS: ARICEPT PO SCH (21:05)
[2019-03-14] MEDS: MORPHINE IV PRN ×3 (01:01→22:36)
[2019-03-14] MEDS: PAXIL PO SCH ×2 (08:26→10:08)
[2019-03-14] MEDS: PEPCID IV SCH ×2 (08:27→10:08)
[2019-03-14] MEDS: K-DUR PO SCH ×2 (08:27→10:08)
[2019-03-14] MEDS: INDERAL LA PO SCH ×2 (08:40→10:08)
[2019-03-14] MEDS: ELIQUIS PO SCH ×3 (08:40→22:36)
[2019-03-14 10:36] LABS: Eosinophils # (Auto) 0.3 K/mm3 (0.0-0.4); Eosinophils % (Auto) 5.8 % (0.0-4.3); Hematocrit 27.7 % (30.3-42.9); Hemoglobin 9.4 gm/dl (10.1-14.3); Mean Corpuscular HGB Conc 34 % (30-34); Mean Corpuscular Volume 90 fl (79-97); Monocytes # (Auto) 0.6 K/mm3 (0.0-0.8); Monocytes % (Auto) 13.2 % (0.0-7.3); Platelet Count 191 K/mm3 (140-440); Red Blood Count 3.07 M/mm3 (3.65-5.03); Red Cell Distribution Width 15.1 % (13.2-15.2)
[2019-03-14 10:55] LABS: Alanine Aminotransferase 7 units/L (7-56); Albumin 3.4 g/dL (3.9-5); BUN/Creatinine Ratio 20; Blood Urea Nitrogen 10 mg/dL (7-17); Calcium 8.4 mg/dL (8.4-10.2); Hemolysis Index 3
--- NOTE | 2019-03-14 12:08 | Progress Note ---
Assessment and Plan Patient is a 68-year-old female with history of COPD on home oxygen at 3L via [place], pulmonary embolism, hepatitis C, liver cirrhosis, osteoarthritis in both knees, tobacco abuse, chronic abdominal pain, recurrent chest pain, dementia, who presented to the on account of falling at home last night with subsequent pain in the right leg. Her call [facility] medical service and was jess to the ED. Patient does not remember falling as a result of her dementia. She has small bruising of the right eyebrow. She has diffud\se right leg and knee pain. Xray of the right thigh at the ED showed non displaced fracture of the right femur. CXR was unremarkable for any acute event. CT of the head was normal. Orthopedic surgeon was consult in the ED. - Nondisplace fracture of the distal right femur: Pain control Orthopedic surgeon consulted. conservative Mx with right knee immobilization recommended. To continue with same while awaiting placeman into SNF with Rehab - H/O COPD on home oxygen continue with bronchodilators and Supplemental oxygen - Dementia Fall precaution - Hypokalemia: will Supplement - H/o DVT Continue with Eliquis -DVT and GI PPx pt on Eliquis and pepcid Code status Pt is full code Disposition: Rehab placement Subjective Date of service: 03/14/19 Principal diagnosis: distal femoral fracture right leg Interval history: Lying quietly in bed. No new complain. Afebrile Objective - Exam Narrative Exam: Constitutional: Well-nourished well-developed. In no distress Head: Normocephalic atraumatic Eyes: Pupils are equal round and reactive to light Nose: No enlarged turbinates, no septal deviation. Mouth: Moist mucous membranes. Neck: Supple no thyromegaly. No bruit. No JVD Heart: Regular rate and rhythm, S1-S2 normal. No rubs murmurs or gallop Lungs: Clear to auscultation bilaterally. no rales or rhonchi Abdomen: Soft, nontender. Bowel sound are present. Extremities: Right leg in a splint. No edema, no cyanosis, no clubbing. Neuro: Alert oriented Oriented x2. No focal sensory or motor deficit. Skin: No rashes or hyperpigmented spots Musculoskeletal system: Right knee joint pain from fracture Hematological: No petechia or subcutanous hemorrhages. Immunological: No multiple septic spots on the skin Lymphatic: No generalized lymphadenopathy Psychiatry: Euthymic. Calm. - Constitutional Vitals: Vital Signs - 12hr 03/14/19 03/14/19 03/14/19 00:29 01:01 04:33 Temperature 98.3 F 98.2 F Pulse Rate 70 67 Respiratory 18 17 17 Rate Blood Pressure 100/42 Blood Pressure 108/54 [Left] O2 Sat by Pulse 93 95 Oximetry 03/14/19 03/14/19 07:40 07:41 Temperature 97.9 F Pulse Rate 64 70 Respiratory 16 Rate Blood Pressure 122/48 Blood Pressure [Left] O2 Sat by Pulse 94 93 Oximetry - Labs CBC & Chem 7: 03/14/19 09:55 03/14/19 09:55 Labs: Abnormal lab results 03/14/19 03/14/19 Range/Units 09:55 09:55 RBC 3.07 L (3.65-5.03) M/mm3 Hgb 9.4 L (10.1-14.3) gm/dl Hct 27.7 L (30.3-42.9) % [place] % (Auto) 13.2 H (0.0-7.3) % Eos % (Auto) 5.8 H (0.0-4.3) % Lymph # 1.0 L (1.2-5.4) K/mm3 Creatinine 0.5 L (0.7-1.2) mg/dL Albumin 3.4 L (3.9-5) g/dL
[2019-03-14] MEDS: PRAVACHOL PO SCH (21:29)
[2019-03-14] MEDS: ARICEPT PO SCH (21:30)
--- NOTE | 2019-03-15 09:42 | Progress Note ---
Assessment and Plan Patient is a 68-year-old female with history of COPD on home oxygen at 3L via [place], pulmonary embolism, hepatitis C, liver cirrhosis, osteoarthritis in both knees, tobacco abuse, chronic abdominal pain, recurrent chest pain, dementia, who presented to the on account of falling at home last night with subsequent pain in the right leg. Her call [facility] medical service and was jess to the ED. Patient does not remember falling as a result of her dementia. She has small bruising of the right eyebrow. She has diffud\se right leg and knee pain. Xray of the right thigh at the ED showed non displaced fracture of the right femur. CXR was unremarkable for any acute event. CT of the head was normal. Orthopedic surgeon was consult in the ED. - Nondisplace fracture of the distal right femur: Pain control Orthopedic surgeon consulted. conservative Mx with right knee immobilization recommended. To continue with same while awaiting placeman into SNF with Rehab - H/O COPD on home oxygen continue with bronchodilators and Supplemental oxygen - Dementia Fall precaution - Hypokalemia: will Supplement - H/o DVT Continue with Eliquis -DVT and GI PPx pt on Eliquis and pepcid Code status Pt is full code Disposition: Rehab placement. d/w adult protective caseworker Subjective Date of service: 03/15/19 Principal diagnosis: distal femoral fracture right leg Interval history: Lying quietly in bed. No new complain. Getting out of bed per nurses and wanting to go out. Objective - Exam Narrative Exam: Constitutional: Well-nourished well-developed. In no distress Head: Normocephalic atraumatic Eyes: Pupils are equal round and reactive to light Nose: No enlarged turbinates, no septal deviation. Mouth: Moist mucous membranes. Neck: Supple no thyromegaly. No bruit. No JVD Heart: Regular rate and rhythm, S1-S2 normal. No rubs murmurs or gallop Lungs: Clear to auscultation bilaterally. no rales or rhonchi Abdomen: Soft, nontender. Bowel sound are present. Extremities: Right leg in a splint. No edema, no cyanosis, no clubbing. Neuro: Alert oriented Oriented x2. No focal sensory or motor deficit. Skin: No rashes or hyperpigmented spots Musculoskeletal system: Right knee joint pain from fracture Hematological: No petechia or subcutanous hemorrhages. Immunological: No multiple septic spots on the skin Lymphatic: No generalized lymphadenopathy Psychiatry: Euthymic. Calm. - Constitutional Vitals: Vital Signs - 12hr 03/15/19 03/15/19 03/15/19 00:26 01:00 04:00 Temperature 98.2 F 98.2 F Pulse Rate 72 66 Respiratory 18 18 18 Rate Blood Pressure 107/62 113/58 [Left] O2 Sat by Pulse 94 96 Oximetry 03/15/19 07:00 Temperature 98.3 F Pulse Rate 68 Respiratory 18 Rate Blood Pressure 117/63 [Left] O2 Sat by Pulse 94 Oximetry - Labs CBC & Chem 7: 03/14/19 09:55 03/14/19 09:55 Labs: Abnormal lab results 03/14/19 03/14/19 Range/Units 09:55 09:55 RBC 3.07 L (3.65-5.03) M/mm3 Hgb 9.4 L (10.1-14.3) gm/dl Hct 27.7 L (30.3-42.9) % [place] % (Auto) 13.2 H (0.0-7.3) % Eos % (Auto) 5.8 H (0.0-4.3) % Lymph # 1.0 L (1.2-5.4) K/mm3 Creatinine 0.5 L (0.7-1.2) mg/dL Albumin 3.4 L (3.9-5) g/dL
[2019-03-15] MEDS: PAXIL PO SCH (11:30)
[2019-03-15] MEDS: PEPCID IV SCH (11:30)
[2019-03-15] MEDS: K-DUR PO SCH (11:30)
[2019-03-15] MEDS: ELIQUIS PO SCH ×2 (11:34→21:49)
[2019-03-15] MEDS: INDERAL LA PO SCH (11:54)
[2019-03-15] MEDS ORDERED: ROBITUSSIN PO PRN (17:12)
[2019-03-15] MEDS: ARICEPT PO SCH (21:48)
[2019-03-15] MEDS: PRAVACHOL PO SCH (21:48)
[2019-03-16] MEDS: MORPHINE IV PRN ×3 (08:12→22:19)
[2019-03-16] MEDS: PEPCID IV SCH ×2 (08:16→10:31)
[2019-03-16] MEDS: ELIQUIS PO SCH ×3 (08:18→22:19)
[2019-03-16] MEDS: PAXIL PO SCH ×2 (08:18→10:31)
[2019-03-16] MEDS: K-DUR PO SCH ×2 (08:18→10:31)
[2019-03-16] MEDS: INDERAL LA PO SCH ×2 (08:19→10:31)
--- NOTE | 2019-03-16 09:32 | Discharge Summary ---
Providers - Providers Date of Admission: 03/11/19 14:41 Date of discharge: 03/16/19 Attending physician: MITCHELL GUEVARA 03/11/19 13:13 Consult to Physician [CONS] Stat Comment: Consulting Provider: JON CALLOWAY Physician Instructions: Reason For Exam: distal femur fracture 03/12/19 10:12 Physical Therapy Evaluation and Treat [CONS] Urgent Comment: Reason For Exam: L knee fracture Assistive devices?: Yes: knee immobilizer 03/12/19 10:14 Occupational Therapy Evaluate and Treat [CONS] Routine Comment: no surgery needed Reason For Exam: L knee fracture [facility] Reason for admission: fracture of the distal end of the right femur, secondary to a fall Condition: Stable Pertinent studies: CT scan of the head was unremarkable Social parenchyma showed a nondisplaced fracture of the disease and a right femur Procedures: F a splint on the right leg Hospital course: Patient is a 68-year-old female with history of COPD on home oxygen at 3L via [place], pulmonary embolism, hepatitis C, liver cirrhosis, osteoarthritis in both knees, tobacco abuse, chronic abdominal pain, recurrent chest pain, dementia, who presented to the on account of falling at home with subsequent pain in the right leg. Her call [facility] medical service and was brought to the ED. Patient does not remember falling as a result of her dementia. She has small bruising of the right eyebrow. She has diffuse right leg and knee pain. Xray of the right thigh at the ED showed non displaced fracture of the distal end right femur. CXR was unremarkable for any acute event. CT of the head was normal. Orthopedic surgeon was consult in the ED. conservative management was recommended. Patient is still wanted to get out of the bed. Understands with the plan. Became more stable. Recent removed. All this accident for pain medication. Patient has a history of chronic pain syndrome. It was adequately controlled. She is therefore been discharged today to longterm facility for rehabilitation and further management. Discharge was held as no SNF placement was available. Disposition: DC/TX-03 SNF [facility] Time spent for discharge: 40 minutes - Discharge Diagnoses (1) Closed head injury Status: Acute (2) Facial contusion Status: Acute (3) Fracture, femur, distal Status: Acute (4) COPD exacerbation Status: Acute Comment: resolved Core Measure Documentation - Palliative Care Palliative Care/ Comfort Measures: Not Applicable - Core Measures Any of the following diagnoses?: none Exam - Physical Exam Narrative exam: Constitutional: Well-nourished well-developed. In no distress Head: Normocephalic atraumatic Eyes: Pupils are equal round and reactive to light Nose: No enlarged turbinates, no septal deviation. Mouth: Moist mucous membranes. Neck: Supple no thyromegaly. No bruit. No JVD Heart: Regular rate and rhythm, S1-S2 normal. No rubs murmurs or gallop Lungs: Clear to auscultation bilaterally. no rales or rhonchi Abdomen: Soft, nontender. Bowel sound are present. Extremities: Right leg in a splint. No edema, no cyanosis, no clubbing. Neuro: Alert oriented Oriented x2. No focal sensory or motor deficit. Skin: No rashes or hyperpigmented spots Musculoskeletal system: Right knee joint pain from fracture Hematological: No petechia or subcutanous hemorrhages. Immunological: No multiple septic spots on the skin Lymphatic: No generalized lymphadenopathy Psychiatry: Euthymic. Calm. - Constitutional Vitals: Temp Pulse Resp BP Pulse Ox 98.9 F 72 18 131/65 92 03/16/19 07:55 03/16/19 08:19 03/16/19 07:55 03/16/19 08:19 03/16/19 07:55 Plan Activity: fall precautions Weight Bearing Status: Non-Weight Bearing Diet: regular Special Instructions: occupational therapy Follow up with: [facility] MIYA [Primary Care Provider] - 14 Days MITCHELL GUEVARA MD [Staff Physician] - 3 Days Prescriptions: Donepezil [Aricept] 5 mg PO QHS #30 tablet Apixaban [Eliquis] 5 mg PO BID #60 tablet Propranolol LA [Inderal LA] 60 mg PO QDAY #30 capsule PARoxetine HCl [PARoxetine] 40 mg PO QDAY #30 tablet PARoxetine [Paxil] 40 mg PO QDAY #30 tablet QUEtiapine [SEROquel] 400 mg PO HS #30 tablet Simvastatin 20 mg PO HS #30 tablet ALPRAZolam [Xanax TAB] 1 mg PO BID #60 tablet
--- NOTE | 2019-03-16 09:42 | Event Note ---
Date: 03/16/19 Discharged to SNIF would rehabilitation capability when bed is available
[2019-03-16] MEDS: PRAVACHOL PO SCH (22:19)
[2019-03-16] MEDS: ARICEPT PO SCH (22:19)
[2019-03-17] MEDS: MORPHINE IV PRN ×3 (06:01→22:00)
--- NOTE | 2019-03-17 08:14 | Progress Note ---
Assessment and Plan Patient is a 68-year-old female with history of COPD on home oxygen at 3L via [place], pulmonary embolism, hepatitis C, liver cirrhosis, osteoarthritis in both knees, tobacco abuse, chronic abdominal pain, recurrent chest pain, dementia, who presented to the on account of falling at home last night with subsequent pain in the right leg. Her call [facility] medical service and was jess to the ED. Patient does not remember falling as a result of her dementia. She has small bruising of the right eyebrow. She has diffud\se right leg and knee pain. Xray of the right thigh at the ED showed non displaced fracture of the right femur. CXR was unremarkable for any acute event. CT of the head was normal. Orthopedic surgeon was consult in the ED. Slit applied. Conservative management recommended. - Nondisplace fracture of the distal right femur: Pain control Orthopedic surgeon consulted. conservative Mx with right knee immobilization recommended. To continue with same while awaiting placement into SNF with Rehab capability awaited - H/O COPD on home oxygen continue with bronchodilators and Supplemental oxygen - Had fever today CXR, Urine and blood cx ordered commence [facility] iv Levaquin - Dementia Fall precaution - Hypokalemia: will Supplement - H/o DVT Continue with Eliquis -DVT and GI PPx pt on Eliquis and pepcid Code status Pt is full code Disposition: Awaiting rehab placement. d/w egg caser - Patient Problems (1) Closed head injury Current Visit: Yes Status: Acute (2) Facial contusion Current Visit: Yes Status: Acute (3) Fracture, femur, distal Current Visit: Yes Status: Acute (4) COPD exacerbation Onset Date: 10/14/13 Current Visit: No Status: Acute Subjective Date of service: 03/17/19 Principal diagnosis: distal femoral fracture right leg Interval history: Lying quietly in bed. No new complain. Getting out of bed per nurses and wanting to go out. Objective - Exam Narrative Exam: Constitutional: Well-nourished well-developed. In no distress Head: Normocephalic atraumatic Eyes: Pupils are equal round and reactive to light Nose: No enlarged turbinates, no septal deviation. Mouth: Moist mucous membranes. Neck: Supple no thyromegaly. No bruit. No JVD Heart: Regular rate and rhythm, S1-S2 normal. No rubs murmurs or gallop Lungs: Clear to auscultation bilaterally. no rales or rhonchi Abdomen: Soft, nontender. Bowel sound are present. Extremities: Right leg in a splint. No edema, no cyanosis, no clubbing. Neuro: Alert oriented Oriented x2. No focal sensory or motor deficit. Skin: No rashes or hyperpigmented spots Musculoskeletal system: Right knee joint pain from fracture Hematological: No petechia or subcutanous hemorrhages. Immunological: No multiple septic spots on the skin Lymphatic: No generalized lymphadenopathy Psychiatry: Euthymic. Calm. - Labs CBC & Chem 7: 03/14/19 09:55 03/14/19 09:55
[2019-03-17] MEDS: INDERAL LA PO SCH ×2 (08:31→10:58)
[2019-03-17] MEDS: ELIQUIS PO SCH ×3 (08:32→21:59)
[2019-03-17] MEDS: K-DUR PO SCH ×2 (08:32→10:58)
[2019-03-17] MEDS: PEPCID IV SCH ×2 (08:32→10:58)
[2019-03-17] MEDS: PAXIL PO SCH ×2 (08:33→10:58)
--- NOTE | 2019-03-17 09:39 | XRay Report ---
CHEST 1 VIEW 03/17/2019 9:18 AM INDICATION / CLINICAL INFORMATION: temp and heart rate increase. COMPARISON: Chest x-ray on 03/11/2019. FINDINGS: SUPPORT DEVICES: None. HEART / MEDIASTINUM: Normal heart size. Atherosclerosis in the thoracic aorta. LUNGS / PLEURA: No significant pulmonary or pleural abnormality. No pneumothorax. ADDITIONAL FINDINGS: No significant additional findings. IMPRESSION: 1. No acute findings. Signer Name: Jerrell Dangelo MD Signed: 03/17/2019 8:35 AM Workstation Name: [id number]
[2019-03-17] MEDS: LEVAQUIN 750MG/150ML 750 MG/150 ML BAG IV SCH (10:29)
[2019-03-17 10:44] LABS: Bilirubin,Urine NEG (Negative); Blood,Urine NEG (Negative); Color,Urine Yellow (Yellow); Protein,Urine <15 mg/dL mg/dL (Negative); WBC,Urine < 1.0 /HPF (0.0-6.0)
[2019-03-17] MEDS: ARICEPT PO SCH (21:59)
[2019-03-17] MEDS: PRAVACHOL PO SCH (21:59)
[2019-03-17] MEDS ORDERED: IBUPROFEN PO PRN ×2 (22:51→23:45)
[2019-03-18 00:04] LABS: Creatine Kinase MB < 1.0 ng/mL (0.0-4.0)
[2019-03-18] MEDS ORDERED: BABY ASPIRIN PO ONE ×2 (00:53→02:00)
[2019-03-18 05:29] LABS: Basophils # (Auto) 0.1 K/mm3 (0.0-0.1); Basophils % (Auto) 0.7 % (0.0-1.8); Eosinophils % (Auto) 0.1 % (0.0-4.3); Hematocrit 30.5 % (30.3-42.9); Hemoglobin 10.4 gm/dl (10.1-14.3); Lymphocytes # (Auto) 0.6 K/mm3 (1.2-5.4); Lymphocytes % (Auto) 7.3 % (13.4-35.0); Mean Corpuscular HGB Conc 34 % (30-34); Mean Corpuscular Volume 89 fl (79-97); Monocytes # (Auto) 0.6 K/mm3 (0.0-0.8); Monocytes % (Auto) 7.7 % (0.0-7.3); Platelet Count 231 K/mm3 (140-440); Red Blood Count 3.44 M/mm3 (3.65-5.03); Red Cell Distribution Width 15.1 % (13.2-15.2)
[2019-03-18 05:52] LABS: Alanine Aminotransferase 9 units/L (7-56); Albumin 3.5 g/dL (3.9-5); BUN/Creatinine Ratio 26; Blood Urea Nitrogen 21 mg/dL (7-17); Calcium 9.1 mg/dL (8.4-10.2); Hemolysis Index 0
[2019-03-18] MEDS: INDERAL LA PO SCH (09:59)
[2019-03-18] MEDS: ELIQUIS PO SCH ×2 (09:59→21:15)
[2019-03-18] MEDS: K-DUR PO SCH (10:00)
[2019-03-18] MEDS: LEVAQUIN 750MG/150ML 750 MG/150 ML BAG IV SCH (10:00)
[2019-03-18] MEDS: PAXIL PO SCH (10:01)
[2019-03-18] MEDS: PEPCID IV SCH (10:01)
[2019-03-18] MEDS: MORPHINE IV PRN ×2 (11:02→21:09)
--- NOTE | 2019-03-18 20:32 | Progress Note ---
Assessment and Plan Patient is a 68-year-old female with history of COPD on home oxygen at 3L via [place], pulmonary embolism, hepatitis C, liver cirrhosis, osteoarthritis in both knees, tobacco abuse, chronic abdominal pain, recurrent chest pain, dementia, who presented to the EE on account of falling at home last night with subsequent pain in the right leg. Her call [facility] medical service and was jess to the ED. Patient does not remember falling as a result of her dementia. She has small bruising of the right eyebrow. She has diffud\se right leg and knee pain. Xray of the right thigh at the ED showed non displaced fracture of the right femur. CXR was unremarkable for any acute event. CT of the head was normal. Orthopedic surgeon was consult in the ED. Slit applied. Conservative management recommended. - Nondisplace fracture of the distal right femur: Pain control Orthopedic surgeon consulted. conservative Mx with right knee immobilization recommended. To continue with same while awaiting placement into SNF with Rehab placement awaited - H/O COPD on home oxygen continue with bronchodilators and Supplemental oxygen Had fever today CXR, Urine and blood cx ordered commence Emper[facility] iv Levaquin Dementia Fall precaution Hypokalemia: will Supplement H/o DVT Continue with Eliquis DVT and GI PPx pt on Eliquis and pepcid Code status Pt is full code Disposition: Awaiting rehab placement. d/w case manager specialist Subjective Date of service: 03/18/19 Principal diagnosis: distal femoral fracture right leg Interval history: Fever overnite Objective - Constitutional Vitals: Vital Signs - 12hr 03/18/19 03/18/19 03/18/19 11:46 15:00 19:54 Temperature 98.6 F 97 F L Pulse Rate 85 92 H 87 Respiratory 22 16 18 Rate Blood Pressure 103/71 Blood Pressure 133/60 [Left] O2 Sat by Pulse 96 95 95 Oximetry 03/18/19 03/18/19 19:55 20:15 Temperature 102.1 F H Pulse Rate 90 87 Respiratory 0 L 18 Rate Blood Pressure Blood Pressure 133/62 [Left] O2 Sat by Pulse 94 99 Oximetry General appearance: Present: no acute distress, well-nourished - EENT Eyes: PERRL, EOM intact ENT: hearing intact, clear oral mucosa Ears: bilateral: normal - Neck Neck: supple, normal ROM - Respiratory Respiratory effort: normal Respiratory: bilateral: CTA - Breasts Breasts: normal - Cardiovascular Rhythm: regular Heart Sounds: Present: S1 & S2. Absent: gallop, rub Extremities: no ischemia, pulses intact, No edema, normal color, Full ROM Extremity abnormal: other (Decreased ROM on Rt hip) - Gastrointestinal General gastrointestinal: Present: soft, non-tender, non-distended, normal bowel sounds - Genitourinary Female genitourinary: deferred, normal - Integumentary Integumentary: clear, warm, dry - Musculoskeletal Musculoskeletal: 1, strength equal bilaterally - Neurologic Neurologic: moves all extremities - Psychiatric Psychiatric: memory intact, appropriate mood/affect, intact judgment & insight - Allied health notes Allied health notes reviewed: nursing, case management - Labs CBC & Chem 7: 03/18/19 04:05 03/18/19 04:05 Labs: Abnormal lab results 03/17/19 03/18/19 03/18/19 Range/Units 23:14 04:05 04:05 RBC 3.44 L (3.65-5.03) M/mm3 Lymph % (Auto) 7.3 L (13.4-35.0) % [place] % (Auto) 7.7 H (0.0-7.3) % Lymph # 0.6 L (1.2-5.4) K/mm3 Seg Neutrophils % 84.2 H (40.0-70.0) % Sodium 134 L (137-145) mmol/L Potassium 3.3 L (3.6-5.0) mmol/L Chloride 97.3 L (98-107) mmol/L BUN 21 H (7-17) mg/dL Phosphorus 4.90 H (2.5-4.5) mg/dL Total Creatine Kinase 29 L (30-135) units/L Albumin 3.5 L (3.9-5) g/dL
[2019-03-18] MEDS: PRAVACHOL PO SCH (21:15)
[2019-03-18] MEDS: ARICEPT PO SCH (21:15)
[2019-03-18] MEDS: TYLENOL PO PRN (21:53)
[2019-03-19] MEDS: PEPCID IV SCH (10:23)
[2019-03-19] MEDS: K-DUR PO SCH (10:23)
[2019-03-19] MEDS: PAXIL PO SCH (10:23)
[2019-03-19] MEDS: ELIQUIS PO SCH (10:23)
[2019-03-19] MEDS: LEVAQUIN 750MG/150ML 750 MG/150 ML BAG IV SCH (10:23)
[2019-03-19] MEDS: TYLENOL PO PRN (12:19)
--- NOTE | 2019-03-19 13:56 | Discharge Summary ---
Providers - Providers Date of Admission: 03/11/19 14:41 Date of discharge: 03/19/19 Attending physician: MITCHELL GUEVARA 03/11/19 13:13 Consult to Physician [CONS] Stat Comment: Consulting Provider: JON CALLOWAY Physician Instructions: Reason For Exam: distal femur fracture 03/12/19 10:12 Physical Therapy Evaluation and Treat [CONS] Urgent Comment: Reason For Exam: L knee fracture Assistive devices?: Yes: knee immobilizer 03/12/19 10:14 Occupational Therapy Evaluate and Treat [CONS] Routine Comment: no surgery needed Reason For Exam: L knee fracture [facility] Condition: Stable Hospital course: Nondisplace fracture of the distal right femur: Pain control Orthopedic surgeon consulted. conservative Mx with right knee immobilization recommended. To continue with same while awaiting placement into SNF with Rehab capability awaited - H/O COPD on home oxygen continue with bronchodilators and Supplemental oxygen - Fever resolved CXR, Urine and blood cx ordered Emperical Po Levaquin as aoupatient - Dementia Fall precaution - Hypokalemia: will Supplement - H/o DVT Continue with Eliquis -DVT and GI PPx pt on Eliquis and pepcid Code status Pt is full code Rehab placement---done Disposition: DC/TX-03 SNF [facility] Core Measure Documentation - Palliative Care Palliative Care/ Comfort Measures: Not Applicable - Core Measures Any of the following diagnoses?: none Exam - Constitutional Vitals: Temp Pulse Resp BP Pulse Ox 98.8 F 49 L 18 108/63 95 03/19/19 11:54 03/19/19 11:54 03/19/19 11:54 03/19/19 11:54 03/19/19 11:54 General appearance: Present: no acute distress, well-nourished - EENT Eyes: Present: PERRL ENT: hearing intact, clear oral mucosa - Neck Neck: Present: supple, normal ROM - Respiratory Respiratory effort: normal Respiratory: bilateral: CTA - Cardiovascular Heart Sounds: Present: S1 & S2. Absent: rub, click - Extremities Extremities: pulses symmetrical, No edema Peripheral Pulses: within normal limits - Abdominal General gastrointestinal: Present: soft, non-tender, non-distended, normal bowel sounds Female genitourinary: Present: normal - Integumentary Integumentary: Present: clear, warm, dry - Musculoskeletal Musculoskeletal: gait normal, strength equal bilaterally - Psychiatric Psychiatric: appropriate mood/affect, intact judgment & insight - Neurologic Neurologic: CNII-XII intact, moves all extremities Plan Activity: no restrictions Durable Medical Equipment Needed Upon Discharge: Walker-Rolling Follow up with: MITCHELL GUEVARA MD [Staff Physician] - 3 Days HANA ANDERSON DONATO MD [Primary Care Provider] - 14 Days Prescriptions: PARoxetine HCl [PARoxetine] 40 mg PO QDAY #30 tablet
[2019-03-19] MEDS: MORPHINE IV PRN (14:53)
[2019-03-19 16:34] VITALS: BP 108/43
== END 2019-03-19 18:00 | DRG 543 ==
LOC: ED 11:59 → 3B-SURG 14:41
PROVIDERS: ADMIT Family Medicine; ATTEND Family Medicine
PROC: 2W3NX1Z Immobilization of Right Upper Leg using Splint (ICD-10-PCS; principal; 2019-03-11)
DX: M80.051A Age-related osteoporosis with current pathological fracture, right femur, initial encounter for fracture (principal); J44.1 Chronic obstructive pulmonary disease with (acute) exacerbation; S00.83XA Contusion of other part of head, initial encounter; G89.4 Chronic pain syndrome; G47.33 Obstructive sleep apnea (adult) (pediatric); B19.20 Unspecified viral hepatitis C without hepatic coma; M17.0 Bilateral primary osteoarthritis of knee; F32.9 Major depressive disorder, single episode, unspecified; S00.11XA Contusion of right eyelid and periocular area, initial encounter; W18.30XA Fall on same level, unspecified, initial encounter; F17.210 Nicotine dependence, cigarettes, uncomplicated; F03.90 Unspecified dementia, unspecified severity, without behavioral disturbance, psychotic disturbance, mood disturbance, and anxiety; E87.6 Hypokalemia; Z99.81 Dependence on supplemental oxygen; Z86.711 Personal history of pulmonary embolism; Z91.041 Radiographic dye allergy status; Z79.51 Long term (current) use of inhaled steroids; Z79.899 Other long term (current) drug therapy; Z79.01 Long term (current) use of anticoagulants; Z90.49 Acquired absence of other specified parts of digestive tract; Y93.89 Activity, other specified; Y92.098 Other place in other non-institutional residence as the place of occurrence of the external cause; Y99.8 Other external cause status; Z71.6 Tobacco abuse counseling
CPT/HCPCS: 36415; 70450; 71045; 80053; 81001; 82550; 82553; 82962; 83735; 84100; 84484; 85025; 87040; 87076; 87086; 87186; 93005; 93010; 99406; G0378; A9270-GY; J1956; J2270; J2405

== ENCOUNTER 2019-06-20 17:30 | Emergency (ER) | payer MEDICARE ==
[2019-06-20] MEDS ORDERED: ONDANSETRON 4 MG/2 ML INJ IV ONE (19:05)
[2019-06-20] MEDS ORDERED: MORPHINE 4 MG/1 ML INJ IV ONE ×2 (19:05→22:28)
--- NOTE | 2019-06-20 19:10 | Emergency Department Report ---
ED Abdominal Pain HPI - General Chief Complaint: Abdominal Pain Stated Complaint: N/V Time Seen by Provider: 06/20/19 19:00 Source: EMS Mode of arrival: Stretcher Limitations: No Limitations - History of Present Illness Initial Comments: Patient is 68-year-old female with history of COPD, hepatitis C with history of liver cirrhosis and hypertension. Patient presented to the ER complaining of lower abdominal pain for approximately one week associated with nausea but no vomiting. Patient denied any diarrhea. She also denied any fever or chills. No chest pain or shortness of breath. MD Complaint: abdominal pain -: week(s) Location: suprapubic Migration to: no migration Severity: moderate Quality: sharp - Related Data Home Medications Medication Instructions Recorded Confirmed Last Taken ALBUTEROL NEB's [Proventil 0.083% 2.5 mg IH QID PRN 03/11/19 03/11/19 Unknown NEBS] Apixaban [Eliquis] 5 mg PO BID 03/11/19 03/11/19 Unknown Donepezil [Aricept] 5 mg PO QHS 03/11/19 03/11/19 Unknown Omeprazole 20 mg PO QDAY 03/11/19 03/11/19 Unknown Previous Rx's Medication Instructions Recorded Last Taken Type Quetiapine Fumarate [SEROquel] 400 mg PO HS #30 tablet 10/08/17 Unknown Rx PARoxetine HCl [PARoxetine] 40 mg PO QDAY #30 tablet 03/16/19 Unknown Rx guaiFENesin [Robitussin] 200 mg PO Q6H PRN tablet 03/16/19 Unknown Rx ALPRAZolam [Xanax TAB] 1 mg PO BID #60 tablet 03/19/19 Unknown Rx Apixaban [Eliquis] 5 mg PO BID #60 tablet 03/19/19 Unknown Rx Donepezil [Aricept] 5 mg PO QHS #30 tablet 03/19/19 Unknown Rx PARoxetine [Paxil] 40 mg PO QDAY #30 tablet 03/19/19 Unknown Rx Propranolol LA [Inderal LA] 60 mg PO QDAY #30 capsule 03/19/19 Unknown Rx QUEtiapine [SEROquel] 400 mg PO HS #30 tablet 03/19/19 Unknown Rx Simvastatin 20 mg PO HS #30 tablet 03/19/19 Unknown Rx Allergies Allergy/AdvReac Type Severity Reaction Status Date / Time Iodinated Contrast Media Allergy Itching Verified 01/09/19 17:24 [Iodinated Contrast Media - IV Dye] ivp dye Allergy Itching Uncoded 10/05/17 08:23 ED Review of Systems ROS: Stated complaint: N/V Other details as noted in HPI Comment: All other systems reviewed and negative Constitutional: denies: chills, fever Respiratory: denies: cough, shortness of breath, SOB with exertion, SOB at rest, wheezing Cardiovascular: denies: chest pain, palpitations Gastrointestinal: abdominal pain, nausea. denies: vomiting, diarrhea, constipation, hematemesis, melena, hematochezia Musculoskeletal: denies: back pain Neurological: denies: headache ED Past Medical Hx - Past Medical History Hx Hypertension: Yes Hx GERD: Yes Hx Liver Disease: Yes (HEP C, cirrohsis) Hx Arthritis: Yes Hx Psychiatric Treatment: Yes (depression) Hx COPD: Yes (oxygen dependent) Hx Dementia: Yes (POOR MEMORY , ON MEDS) Additional medical history: osteoporosis, sleep apnea/cpap @ night, Home O2-3L, emphysema - Surgical History Hx Cholecystectomy: Yes Additional Surgical History: thyroid surg t&a - Social History Smoking Status: Current Some Day Smoker - Medications Home Medications: Home Medications Medication Instructions Recorded Confirmed Last Taken Type Quetiapine Fumarate [SEROquel] 400 mg PO HS #30 tablet 10/08/17 03/11/19 Unknown Rx ALBUTEROL NEB's [Proventil 0.083% 2.5 mg IH QID PRN 03/11/19 03/11/19 Unknown History NEBS] Apixaban [Eliquis] 5 mg PO BID 03/11/19 03/11/19 Unknown History Donepezil [Aricept] 5 mg PO QHS 03/11/19 03/11/19 Unknown History Omeprazole 20 mg PO QDAY 03/11/19 03/11/19 Unknown History PARoxetine HCl [PARoxetine] 40 mg PO QDAY #30 tablet 03/16/19 Unknown Rx guaiFENesin [Robitussin] 200 mg PO Q6H PRN tablet 03/16/19 Unknown Rx ALPRAZolam [Xanax TAB] 1 mg PO BID #60 tablet 03/19/19 Unknown Rx Apixaban [Eliquis] 5 mg PO BID #60 tablet 03/19/19 Unknown Rx Donepezil [Aricept] 5 mg PO QHS #30 tablet 03/19/19 Unknown Rx PARoxetine [Paxil] 40 mg PO QDAY #30 tablet 03/19/19 Unknown Rx Propranolol LA [Inderal LA] 60 mg PO QDAY #30 capsule 03/19/19 Unknown Rx QUEtiapine [SEROquel] 400 mg PO HS #30 tablet 03/19/19 Unknown Rx Simvastatin 20 mg PO HS #30 tablet 03/19/19 Unknown Rx ED Physical Exam - General Limitations: No Limitations General appearance: alert, in no apparent distress - Head Head exam: Present: atraumatic, normocephalic, normal inspection - Eye Eye exam: Present: normal appearance - ENT ENT exam: Present: normal exam, normal orophraynx, mucous membranes moist - Neck Neck exam: Present: normal inspection, full ROM. Absent: tenderness, meningismus, lymphadenopathy, thyromegaly - Respiratory Respiratory exam: Present: normal lung sounds bilaterally - Cardiovascular Cardiovascular Exam: Present: regular rate, normal rhythm, normal heart sounds - GI/Abdominal GI/Abdominal exam: Present: soft, normal bowel sounds. Absent: distended, tenderness, guarding, rebound, rigid, organomegaly, mass, bruit, pulsatile mass, hernia - Extremities Exam Extremities exam: Present: normal inspection, full ROM, normal capillary refill. Absent: tenderness, pedal edema, calf tenderness - Back Exam Back exam: Present: normal inspection, full ROM. Absent: CVA tenderness (R), CVA tenderness (L), muscle spasm, paraspinal tenderness, vertebral tenderness - Neurological Exam Neurological exam: Present: alert, oriented X3, CN II-XII intact - Psychiatric Psychiatric exam: Present: normal mood - Skin Skin exam: Present: warm, intact, normal color ED Course Vital Signs 06/20/19 06/20/19 06/20/19 17:47 18:15 19:40 Temperature 97.6 F 98.1 F Pulse Rate 75 74 Respiratory 18 18 19 Rate Blood Pressure 110/57 Blood Pressure 124/61 [Left] O2 Sat by Pulse 94 Oximetry ED Medical Decision Making - Lab Data Result diagrams: 06/20/19 19:04 06/20/19 19:04 - Radiology Data Radiology results: report reviewed - Medical Decision Making Patient is 68-year-old female with history of COPD, hepatitis C with history of liver cirrhosis and hypertension. Patient presented to the ER complaining of lower abdominal pain for approximately one week associated with nausea but no vomiting. Patient denied any diarrhea. She also denied any fever or chills. No chest pain or shortness of breath. Patient stated that she is feeling much better. Labs reviewed and is unremarkable except for UTI. CT abdomen and pelvis is negative for acute finding except for moderate constipation. Patient and her family inform about the CT findings and the need to follow-up with his primary care physician. Patient given a prescription for lactulose and Colace and prescription for ciprofloxacin for UTI. Patient advised to return to the ER if symptoms are not improved. Critical care attestation.: If time is entered above; I have spent that time in minutes in the direct care of this critically ill patient, excluding procedure time. ED Disposition Clinical Impression: Abdominal pain, UTI (urinary tract infection), Constipation Disposition: - TO HOME OR SELFCARE Is pt being admited?: No Condition: Stable Instructions: Abdominal Pain (ED), Urinary Tract Infection in Women (ED), Constipation (ED) Referrals: MITCHELL GUEVARA MD [Primary Care Provider] - 3-5 Days
[2019-06-20 19:14] LABS: Basophils # (Auto) 0.1 K/mm3 (0.0-0.1); Basophils % (Auto) 1.8 % (0.0-1.8); Eosinophils # (Auto) 0.2 K/mm3 (0.0-0.4); Eosinophils % (Auto) 6.7 % (0.0-4.3); Hemoglobin 8.7 gm/dl (10.1-14.3); Lymphocytes # (Auto) 1.3 K/mm3 (1.2-5.4); Lymphocytes % (Auto) 37.9 % (13.4-35.0); Mean Corpuscular HGB Conc 35 % (30-34); Mean Corpuscular Volume 90 fl (79-97); Monocytes # (Auto) 0.4 K/mm3 (0.0-0.8); Monocytes % (Auto) 11.2 % (0.0-7.3); Platelet Count 177 K/mm3 (140-440); Red Blood Count 2.78 M/mm3 (3.65-5.03); Red Cell Distribution Width 15.5 % (13.2-15.2)
[2019-06-20 19:36] LABS: Alanine Aminotransferase 10 units/L (7-56); Albumin 3.6 g/dL (3.9-5); BUN/Creatinine Ratio 15; Blood Urea Nitrogen 12 mg/dL (7-17); Calcium 8.1 mg/dL (8.4-10.2); Hemolysis Index 4
[2019-06-20] MEDS ORDERED: LORazepam 2 MG/ML VIAL IV ONE (19:36)
--- NOTE | 2019-06-20 20:56 | Cat Scan Report ---
CT ABDOMEN AND PELVIS WITHOUT CONTRAST INDICATION: ABDOMINAL PAIN. TECHNIQUE: Axial CT images were obtained through the abdomen and pelvis without IV contrast. All CT scans at [facility] are performed using CT dose reduction for ALARA by means of automated exposure control. COMPARISON: CT abdomen pelvis 10/05/2017 report. FINDINGS: LOWER CHEST: 7 mm solid right middle lobe pulmonary nodule image 13. Mild interstitial prominence bot h lower lung field suggestive for mild pulmonary edema. LIVER: 2 simple hepatic cysts. GALLBLADDER: Remains surgically absent BILE DUCTS: No significant abnormality. PANCREAS: No significant abnormality. SPLEEN: No significant abnormality. ADRENALS: Mild linear calcification right adrenal gland of doubtful significance. Left adrenal appear s within normal limits RIGHT KIDNEY and URETER: No significant abnormality. LEFT KIDNEY and URETER: No significant abnormality. STOMACH and SMALL BOWEL: No significant abnormality. COLON: Moderate amount of stool characteristic for constipation. No obstruction. APPENDIX: No significant abnormality. PERITONEUM: No free fluid. No free air. No fluid collection. LYMPH NODES: No significant adenopathy. AORTA and ARTERIES: Extensive vascular calcifications nonaneurysmal abdominal aorta IVC and VEINS: No significant abnormality. URINARY BLADDER: No significant abnormality. REPRODUCTIVE ORGANS: No significant abnormality. ADDITIONAL FINDINGS: None. SKELETAL SYSTEM: Osteopenia with old healed right rib fractures and moderately advanced degenerative changes of thoracolumbar spine. 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 Moderate degenerativ e changes of both hips. IMPRESSION: 1. No urinary tract calculi or hydronephrosis. 2. Moderate constipation. No acute inflammatory process or bowel obstruction. 3. Mild CHF 4. Incidental 7 mm right middle lobe pulmonary nodule INCIDENTAL PULMONARY NODULE RECOMMENDATIONS Solid Nodule size 6-8 mm -- Single - Low Risk Patient: CT at 6-12 months, then consider CT at 18-24 months - High Risk Patient: CT at 6-12 months, then CT at 18-24 months Note These recommendations do not apply to lung cancer screening, patients with immunosuppression, o r patients with known primary cancer. Note Newly detected indeterminate nodule in persons 35 years of age or older. Persons under the age of 35 should not receive follow-up unless there is a known primary cancer. Low Risk Patient -- minimal or absent history of smoking and of other known risk factors. High Risk Patient -- history of smoking or of other known risk factors. Nodule dimensions are average of long and short axes, rounded to the nearest millimeter. Based on 2017 Fleischner Society Guidelines found in Radiology 2017 284:228-243. https://[email or web address] 148/[email or web address] Signer Name: Ted Cordeor MD Signed: 06/20/2019 8:51 PM Workstation Name: [id number]
[2019-06-20 20:57] LABS: Bacteria,Urine 1+ /HPF (Negative); Bilirubin,Urine NEG (Negative); Blood,Urine NEG (Negative); Color,Urine Yellow (Yellow); Mucus,Urine FEW /HPF; Protein,Urine <15 mg/dL mg/dL (Negative); Urobilinogen,Urine < 2.0 mg/dL (<2.0)
[2019-06-20] MEDS ORDERED: MORPHINE 2 MG/1 ML INJ ONE (22:27)
[2019-06-20] MEDS ORDERED: MORPHINE 2 MG/1 ML INJ IV ONE (22:28)
[2019-06-20 23:03] VITALS: BP 141/71
== END 2019-06-20 23:17 | disposition home or self-care (01) ==
LOC: ED 17:30
DX: N39.0 Urinary tract infection, site not specified (principal); K59.00 Constipation, unspecified; I10 Essential (primary) hypertension; F32.9 Major depressive disorder, single episode, unspecified; K21.9 Gastro-esophageal reflux disease without esophagitis; M19.90 Unspecified osteoarthritis, unspecified site; J44.9 Chronic obstructive pulmonary disease, unspecified; F17.200 Nicotine dependence, unspecified, uncomplicated; Z90.49 Acquired absence of other specified parts of digestive tract; Z98.890 Other specified postprocedural states; Z91.041 Radiographic dye allergy status; Z86.19 Personal history of other infectious and parasitic diseases; Z79.899 Other long term (current) drug therapy
CPT/HCPCS: 36415; 74176; 80053; 81001; 83690; 85025; 87086; 96374; 96375; 96376; 99284; J2060; J2270; J2405

== ENCOUNTER 2019-07-12 01:12 | Emergency (ER) | payer MEDICARE ==
[2019-07-12] MEDS ORDERED: ONDANSETRON 4 MG/2 ML INJ IM ONE (01:33)
[2019-07-12] MEDS ORDERED: MORPHINE 4 MG/1 ML INJ IM ONE (01:33)
--- NOTE | 2019-07-12 01:38 | Emergency Department Report ---
ED Fall HPI - General Chief Complaint: Fall Stated Complaint: FALL Time Seen by Provider: 07/12/19 01:27 Source: patient, EMS Mode of arrival: Stretcher - History of Present Illness Initial Comments: Patient is 68-year-old female with history of dementia and liver cirrhosis. Patient brought to the emergency room via EMS accompanied by her son for evaluation of a fall that happened just prior to coming to the ER. Patient stated that she was walking and tripped and fell landing on her face. Patient is complaining of neck pain and laceration to the forehead. Patient denied any other injuries. MD Complaint: fall -: Sudden, minutes(s) Fall From: standing Fall Witnessed: yes, by family Place Fall Occurred: home Loss of Consciousness: none Prolonged Down Time?: no Symptoms Prior to Fall: none Location: head, neck Location - Extremities: Left: Knee Severity: moderate Context: tripped/slipped - Related Data Home Medications Medication Instructions Recorded Confirmed Last Taken ALBUTEROL NEB's [Proventil 0.083% 2.5 mg IH QID PRN 03/11/19 03/11/19 Unknown NEBS] Apixaban [Eliquis] 5 mg PO BID 03/11/19 03/11/19 Unknown Donepezil [Aricept] 5 mg PO QHS 03/11/19 03/11/19 Unknown Omeprazole 20 mg PO QDAY 03/11/19 03/11/19 Unknown Previous Rx's Medication Instructions Recorded Last Taken Type Quetiapine Fumarate [SEROquel] 400 mg PO HS #30 tablet 10/08/17 Unknown Rx PARoxetine HCl [PARoxetine] 40 mg PO QDAY #30 tablet 03/16/19 Unknown Rx guaiFENesin [Robitussin] 200 mg PO Q6H PRN tablet 03/16/19 Unknown Rx ALPRAZolam [Xanax TAB] 1 mg PO BID #60 tablet 03/19/19 Unknown Rx Apixaban [Eliquis] 5 mg PO BID #60 tablet 03/19/19 Unknown Rx Donepezil [Aricept] 5 mg PO QHS #30 tablet 03/19/19 Unknown Rx PARoxetine [Paxil] 40 mg PO QDAY #30 tablet 03/19/19 Unknown Rx Propranolol LA [Inderal LA] 60 mg PO QDAY #30 capsule 03/19/19 Unknown Rx QUEtiapine [SEROquel] 400 mg PO HS #30 tablet 03/19/19 Unknown Rx Simvastatin 20 mg PO HS #30 tablet 03/19/19 Unknown Rx Ciprofloxacin HCl [Ciprofloxacin 500 mg PO Q12HR #14 tab 06/20/19 Unknown Rx TAB] Docusate Sodium [Colace] 100 mg PO BID PRN #60 capsule 06/20/19 Unknown Rx Lactulose 10 gm PO DAILY PRN #150 ml 06/20/19 Unknown Rx Allergies Allergy/AdvReac Type Severity Reaction Status Date / Time Iodinated Contrast Media Allergy Itching Verified 01/09/19 17:24 [Iodinated Contrast Media - IV Dye] ivp dye Allergy Itching Uncoded 10/05/17 08:23 ED Review of Systems ROS: Stated complaint: FALL Other details as noted in HPI Comment: All other systems reviewed and negative Constitutional: denies: chills, fever Respiratory: denies: cough, shortness of breath, SOB with exertion, wheezing Cardiovascular: denies: chest pain Gastrointestinal: denies: abdominal pain Musculoskeletal: denies: back pain Neurological: denies: headache, weakness ED Past Medical Hx - Past Medical History Previous Medical History?: Yes Hx Hypertension: Yes Hx GERD: Yes Hx Liver Disease: Yes (HEP C, cirrohsis) Hx Arthritis: Yes Hx Psychiatric Treatment: Yes (depression) Hx COPD: Yes (oxygen dependent) Hx Dementia: Yes (POOR MEMORY , ON MEDS) Additional medical history: osteoporosis, sleep apnea/cpap @ night, Home O2-3L, emphysema - Surgical History Past Surgical History?: Yes Hx Cholecystectomy: Yes Additional Surgical History: thyroid surg t&a, right leg - Social History Smoking Status: Current Every Day Smoker Substance Use Type: None - Medications Home Medications: Home Medications Medication Instructions Recorded Confirmed Last Taken Type Quetiapine Fumarate [SEROquel] 400 mg PO HS #30 tablet 10/08/17 03/11/19 Unknown Rx ALBUTEROL NEB's [Proventil 0.083% 2.5 mg IH QID PRN 03/11/19 03/11/19 Unknown History NEBS] Apixaban [Eliquis] 5 mg PO BID 03/11/19 03/11/19 Unknown History Donepezil [Aricept] 5 mg PO QHS 03/11/19 03/11/19 Unknown History Omeprazole 20 mg PO QDAY 03/11/19 03/11/19 Unknown History PARoxetine HCl [PARoxetine] 40 mg PO QDAY #30 tablet 03/16/19 Unknown Rx guaiFENesin [Robitussin] 200 mg PO Q6H PRN tablet 03/16/19 Unknown Rx ALPRAZolam [Xanax TAB] 1 mg PO BID #60 tablet 03/19/19 Unknown Rx Apixaban [Eliquis] 5 mg PO BID #60 tablet 03/19/19 Unknown Rx Donepezil [Aricept] 5 mg PO QHS #30 tablet 03/19/19 Unknown Rx PARoxetine [Paxil] 40 mg PO QDAY #30 tablet 03/19/19 Unknown Rx Propranolol LA [Inderal LA] 60 mg PO QDAY #30 capsule 03/19/19 Unknown Rx QUEtiapine [SEROquel] 400 mg PO HS #30 tablet 03/19/19 Unknown Rx Simvastatin 20 mg PO HS #30 tablet 03/19/19 Unknown Rx Ciprofloxacin HCl [Ciprofloxacin 500 mg PO Q12HR #14 tab 06/20/19 Unknown Rx TAB] Docusate Sodium [Colace] 100 mg PO BID PRN #60 capsule 06/20/19 Unknown Rx Lactulose 10 gm PO DAILY PRN #150 ml 06/20/19 Unknown Rx ED Physical Exam - General Limitations: Physical Limitation General appearance: alert, in no apparent distress - Head Head exam: Present: other (2 cm) - ENT ENT exam: Present: normal exam, normal orophraynx, mucous membranes moist - Neck Neck exam: Present: normal inspection, full ROM. Absent: tenderness, meningismus, lymphadenopathy, thyromegaly - Respiratory Respiratory exam: Present: normal lung sounds bilaterally - Cardiovascular Cardiovascular Exam: Present: regular rate, normal rhythm, normal heart sounds - GI/Abdominal GI/Abdominal exam: Present: soft, normal bowel sounds. Absent: distended, tenderness, guarding, rebound, rigid - Extremities Exam Extremities exam: Present: normal inspection, full ROM, normal capillary refill - Back Exam Back exam: Present: normal inspection, full ROM. Absent: CVA tenderness (R), CVA tenderness (L) - Neurological Exam Neurological exam: Present: alert, oriented X3, CN II-XII intact. Absent: motor sensory deficit (2 cm laceration to the forehead.) ED Course Vital Signs 07/12/19 07/12/19 01:25 01:54 Temperature 98.2 F Pulse Rate 84 Respiratory 16 16 Rate Blood Pressure 134/70 Blood Pressure 134/70 [Left] O2 Sat by Pulse 95 Oximetry - Laceration /Wound Repair Face Wound Location: face Wound Length (cm): 2 Wound's Depth, Shape: linear Wound Explored: clean Wound Repaired With: Steri-strips Sterile Dressing Applied?: Yes ED Medical Decision Making - Radiology Data Radiology results: report reviewed - Medical Decision Making Patient is 68-year-old female with history of dementia and liver cirrhosis. Patient brought to the emergency room via EMS accompanied by her son for evaluation of a fall that happened just prior to coming to the ER. Patient stated that she was walking and tripped and fell landing on her face. Patient is complaining of neck pain and laceration to the forehead. Patient denied any other injuries. CT brain is negative for acute finding. CT cervical spine and is negative for acute finding however it showed an old C6 compression fracture. She received morphine for pain. Patient stated that she is feeling better. Patient advised to follow-up with her primary care physician in the next 2-3 days and to attend to the ER if symptoms are not improved. Critical care attestation.: If time is entered above; I have spent that time in minutes in the direct care of this critically ill patient, excluding procedure time. ED Disposition Clinical Impression: Fall, Head injury, Neck pain Disposition: DC-01 TO HOME OR SELFCARE Is pt being admited?: No Condition: Stable Instructions: Fall Prevention (ED), Minor Head Injury (ED) Referrals: PRIMARY CARE, [Primary Care Provider] - 3-5 Days
--- NOTE | 2019-07-12 02:47 | Cat Scan Report ---
CT HEAD WITHOUT CONTRAST INDICATION: MAIN: FALL/ FOREHEAD INJURY/ PAIN TECHNIQUE: All CT scans at this location are performed using CT dose reduction for ALARA by means of automated exposure control. COMPARISON: 03/11/2019 FINDINGS: BRAIN: No hemorrhage or mass effect are seen. No evidence of acute infarction is noted. Slight atroph ic changes are again seen. ORBITS: Normal as visualized. SOFT TISSUES OF HEAD: Normal. CALVARIUM: Normal. VISUALIZED PARANASAL SINUSES AND MASTOID AIR CELLS: Clear. ADDITIONAL FINDINGS: None. IMPRESSION: No acute intracranial abnormality. CT CERVICAL SPINE WITHOUT CONTRAST INDICATION: MAIN: FALL/ FOREHEAD INJURY/ PAIN TECHNIQUE: All CT scans at this location are performed using CT dose reduction for ALARA by means of automated exposure control. Axial CT images were obtained through the cervical spine. Sagittal and co german reformatted images were produced. COMPARISON: None available. Cervical spine findings: Moderate cervical degenerative changes are seen most prominent at C4-5 and C 6-7 with moderate disc space narrowing and small anterior and posterior osteophytes. The C6 vertebral body shows moderate central compression which probably is old. Striated appearance within the verteb ral body suggests a hemangioma. No subluxation is seen. No obvious acute fractures are noted. No obvi ous disc herniation is seen. Additional findings: Chronic appearing changes are seen in the visualized upper lobes IMPRESSION: No definite acute findings. C6 vertebral body central compression probably is old. Signer Name: Ramiro Higuera MD Signed: 07/12/2019 2:42 AM Workstation Name: [id number]
[2019-07-12] MEDS ORDERED: TETANUS,DIPH,PERTUSS(ACELL) VACCINE 0.5 ML SYRINGE IM ONE (03:12)
[2019-07-12 03:56] VITALS: BP 119/73
== END 2019-07-12 03:55 | disposition home or self-care (01) ==
LOC: ED 01:12
DX: S01.81XA Laceration without foreign body of other part of head, initial encounter (principal); M54.2 Cervicalgia; I10 Essential (primary) hypertension; K21.9 Gastro-esophageal reflux disease without esophagitis; M19.90 Unspecified osteoarthritis, unspecified site; F32.9 Major depressive disorder, single episode, unspecified; F03.90 Unspecified dementia, unspecified severity, without behavioral disturbance, psychotic disturbance, mood disturbance, and anxiety; F17.200 Nicotine dependence, unspecified, uncomplicated; Z90.49 Acquired absence of other specified parts of digestive tract; Z98.890 Other specified postprocedural states; Z79.899 Other long term (current) drug therapy; Z91.041 Radiographic dye allergy status; W01.0XXA Fall on same level from slipping, tripping and stumbling without subsequent striking against object, initial encounter; Y93.01 Activity, walking, marching and hiking; Y93.89 Activity, other specified; Y99.8 Other external cause status
CPT/HCPCS: 70450; 72125; 90471; 90715; 96372; 99284; J2270; J2405

== ENCOUNTER 2019-11-05 18:15 | Emergency (ER) | payer MEDICARE ==
[2019-11-05] MEDS ORDERED: ONDANSETRON 4 MG ODT TAB PO ONE (19:50)
[2019-11-05] MEDS ORDERED: methylPREDNISolone Sod Succinate 125 MG/2 ML INJ IV ONE (19:50)
[2019-11-05] MEDS ORDERED: IPRATROPIUM/ALBUTEROL SULFATE 3 ML AMPUL.NEB IH ONE (19:50)
[2019-11-05] MEDS ORDERED: HYDROcodone/ACETAMINOPHEN 10-325MG TAB PO ONE (19:50)
--- NOTE | 2019-11-05 19:54 | Emergency Department Report ---
ED General Adult HPI - General Chief complaint: Pain General Stated complaint: MECCA Time Seen by Provider: 11/05/19 19:00 Source: patient, EMS Mode of arrival: Stretcher Limitations: No Limitations - History of Present Illness Initial comments: Patient presents emergency department with a chief complaint of right rib pain and bilateral hip pain status post a fall 3 days ago. Patient states she went to see a doctor at her clinic and was told that she had fractured ribs but was not given an incentive spirometer or pain medicine. He states she comes to the emergency department today because of increased pain in her ribs. Patient denies hitting her head or loss consciousness with the fall. Patient states she was getting out of her bed to go to the restroom when she fell. Patient remembers entire event and denies a syncopal episode -: days(s) (3) Location: pelvis Radiation: non-radiation Severity scale (0 -10): 4 Quality: aching Consistency: constant Improves with: rest Worsens with: movement Associated Symptoms: denies other symptoms Treatments Prior to Arrival: none - Related Data Home Medications Medication Instructions Recorded Confirmed Last Taken ALBUTEROL NEB's [Proventil 0.083% 2.5 mg IH QID PRN 03/11/19 09/23/19 Unknown NEBS] Apixaban [Eliquis] 5 mg PO BID 03/11/19 09/23/19 Unknown Omeprazole 20 mg PO QDAY 03/11/19 09/23/19 Unknown donepeziL [Aricept] 5 mg PO QHS 03/11/19 09/23/19 Unknown Previous Rx's Medication Instructions Recorded Last Taken Type Quetiapine Fumarate [SEROquel] 400 mg PO HS #30 tablet 10/08/17 Unknown Rx PARoxetine HCl [PARoxetine] 40 mg PO QDAY #30 tablet 03/16/19 Unknown Rx guaiFENesin [Robitussin] 200 mg PO Q6H PRN tablet 03/16/19 Unknown Rx ALPRAZolam [Xanax TAB] 1 mg PO BID #60 tablet 03/19/19 Unknown Rx Apixaban [Eliquis] 5 mg PO BID #60 tablet 03/19/19 Unknown Rx PARoxetine [Paxil] 40 mg PO QDAY #30 tablet 03/19/19 Unknown Rx Propranolol LA [Inderal LA] 60 mg PO QDAY #30 capsule 03/19/19 Unknown Rx QUEtiapine [SEROquel] 400 mg PO HS #30 tablet 03/19/19 Unknown Rx Simvastatin 20 mg PO HS #30 tablet 03/19/19 Unknown Rx donepeziL [Aricept] 5 mg PO QHS #30 tablet 03/19/19 Unknown Rx Ciprofloxacin HCl [Ciprofloxacin 500 mg PO Q12HR #14 tab 06/20/19 Unknown Rx TAB] Docusate Sodium [Colace] 100 mg PO BID PRN #60 capsule 06/20/19 Unknown Rx Lactulose 10 gm PO DAILY PRN #150 ml 06/20/19 Unknown Rx Ondansetron [Zofran Odt] 4 mg PO Q8HR PRN #14 tab.rapdis 07/12/19 Unknown Rx traMADoL [Ultram 50 MG tab] 50 mg PO Q4HR PRN #14 tablet 07/12/19 Unknown Rx Ciprofloxacin HCl [Ciprofloxacin 500 mg PO Q12HR #12 tab 09/25/19 Unknown Rx TAB] Prednisone [predniSONE 10 mg 10 mg PO .TAPER #1 tab.ds.pk 09/25/19 Unknown Rx (6-Day Pack, 21 Tabs)] Albuterol INH(or & Nicu Only) 2 puff IH Q4HR PRN #1 inhalation 11/05/19 Unknown Rx [ProAir HFA Inhaler] Azithromycin [Zithromax Z-FRANCOIS] 250 mg PO DAILY #6 tablet 11/05/19 Unknown Rx HYDROcodone/APAP 5-325 [[place] 1 each PO Q6HR PRN #12 tablet 11/05/19 Unknown Rx 5/325] predniSONE [Deltasone] 20 mg PO DAILY #15 tablet 11/05/19 Unknown Rx Allergies Allergy/AdvReac Type Severity Reaction Status Date / Time Iodinated Contrast Media Allergy Itching Verified 01/09/19 17:24 [Iodinated Contrast Media - IV Dye] ivp dye Allergy Itching Uncoded 10/05/17 08:23 ED Review of Systems ROS: Stated complaint: MECCA Other details as noted in HPI Comment: All other systems reviewed and negative Constitutional: denies: chills, fever Eyes: denies: eye pain, eye discharge, vision change ENT: denies: ear pain, throat pain Respiratory: denies: cough, shortness of breath, wheezing Cardiovascular: denies: chest pain, palpitations Endocrine: no symptoms reported Gastrointestinal: denies: abdominal pain, nausea, diarrhea Genitourinary: denies: urgency, dysuria, discharge Musculoskeletal: denies: back pain, joint swelling, arthralgia Skin: denies: rash, lesions Neurological: denies: headache, weakness, paresthesias Psychiatric: denies: anxiety, depression Hematological/Lymphatic: denies: easy bleeding, easy bruising ED Past Medical Hx - Past Medical History Previous Medical History?: Yes Hx Hypertension: Yes Hx GERD: Yes Hx Liver Disease: Yes (HEP C, cirrohsis) Hx Arthritis: Yes Hx Psychiatric Treatment: Yes (depression) Hx COPD: Yes (oxygen dependent) Hx Dementia: Yes Additional medical history: osteoporosis, sleep apnea/cpap @ night, Home O2-3L, emphysema - Surgical History Past Surgical History?: Yes Hx Cholecystectomy: Yes Additional Surgical History: thyroid surg t&a, right leg - Social History Smoking Status: Current Every Day Smoker Substance Use Type: None - Medications Home Medications: Home Medications Medication Instructions Recorded Confirmed Last Taken Type Quetiapine Fumarate [SEROquel] 400 mg PO HS #30 tablet 10/08/17 09/23/19 Unknown Rx ALBUTEROL NEB's [Proventil 0.083% 2.5 mg IH QID PRN 03/11/19 09/23/19 Unknown H istory NEBS] Apixaban [Eliquis] 5 mg PO BID 03/11/19 09/23/19 Unknown History Omeprazole 20 mg PO QDAY 03/11/19 09/23/19 Unknown History donepeziL [Aricept] 5 mg PO QHS 03/11/19 09/23/19 Unknown History PARoxetine HCl [PARoxetine] 40 mg PO QDAY #30 tablet 03/16/19 09/23/19 Unknown Rx guaiFENesin [Robitussin] 200 mg PO Q6H PRN tablet 03/16/19 09/23/19 Unknown Rx ALPRAZolam [Xanax TAB] 1 mg PO BID #60 tablet 03/19/19 09/23/19 Unknown Rx Apixaban [Eliquis] 5 mg PO BID #60 tablet 03/19/19 09/23/19 Unknown Rx PARoxetine [Paxil] 40 mg PO QDAY #30 tablet 03/19/19 09/23/19 Unknown Rx Propranolol LA [Inderal LA] 60 mg PO QDAY #30 capsule 03/19/19 09/23/19 Unknown Rx QUEtiapine [SEROquel] 400 mg PO HS #30 tablet 03/19/19 09/23/19 Unknown Rx Simvastatin 20 mg PO HS #30 tablet 03/19/19 09/23/19 Unknown Rx donepeziL [Aricept] 5 mg PO QHS #30 tablet 03/19/19 09/23/19 Unknown Rx Ciprofloxacin HCl [Ciprofloxacin 500 mg PO Q12HR #14 tab 06/20/19 09/23/19 Unknown Rx TAB] Docusate Sodium [Colace] 100 mg PO BID PRN #60 capsule 06/20/19 09/23/19 Unknown Rx Lactulose 10 gm PO DAILY PRN #150 ml 06/20/19 09/23/19 Unknown Rx Ondansetron [Zofran Odt] 4 mg PO Q8HR PRN #14 tab.rapdis 07/12/19 09/23/19 Unknown Rx traMADoL [Ultram 50 MG tab] 50 mg PO Q4HR PRN #14 tablet 07/12/19 09/23/19 Unknown Rx Ciprofloxacin HCl [Ciprofloxacin 500 mg PO Q12HR #12 tab 09/25/19 Unknown Rx TAB] Prednisone [predniSONE 10 mg 10 mg PO .TAPER #1 tab.ds.pk 09/25/19 Unknown Rx (6-Day Pack, 21 Tabs)] Albuterol INH(or & Nicu Only) 2 puff IH Q4HR PRN #1 inhalation 11/05/19 Unknown Rx [ProAir HFA Inhaler] Azithromycin [Zithromax Z-FARNCOIS] 250 mg PO DAILY #6 tablet 11/05/19 Unknown Rx HYDROcodone/APAP 5-325 [[place] 1 each PO Q6HR PRN #12 tablet 11/05/19 Unknown Rx 5/325] predniSONE [Deltasone] 20 mg PO DAILY #15 tablet 11/05/19 Unknown Rx ED Physical Exam - General Limitations: No Limitations General appearance: alert, in no apparent distress - Head Head exam: Present: atraumatic, normocephalic - Eye Eye exam: Present: normal appearance, PERRL, EOMI - ENT ENT exam: Present: mucous membranes moist - Neck Neck exam: Present: normal inspection - Respiratory Respiratory exam: Present: wheezes, other (Tenderness palpation of ribs 3 through 5 right side). Absent: respiratory distress - Cardiovascular Cardiovascular Exam: Present: regular rate, normal rhythm. Absent: systolic murmur, diastolic murmur, rubs, gallop - GI/Abdominal GI/Abdominal exam: Present: soft, normal bowel sounds. Absent: distended, tenderness - Extremities Exam Extremities exam: Present: normal inspection - Back Exam Back exam: Present: normal inspection - Neurological Exam Neurological exam: Present: alert, oriented X3, CN II-XII intact. Absent: motor sensory deficit - Psychiatric Psychiatric exam: Present: normal affect, normal mood - Skin Skin exam: Present: warm, dry, intact, normal color. Absent: rash ED Course Vital Signs 11/05/19 11/05/19 19:20 20:02 Temperature 98.2 F Pulse Rate 68 Respiratory 14 16 Rate Blood Pressure 124/59 [Left] O2 Sat by Pulse 99 Oximetry ED Medical Decision Making - Radiology Data Radiology results: report reviewed - Medical Decision Making Discussed results with patient Patient received steroids and breathing treatment for her COPD Critical care attestation.: If time is entered above; I have spent that time in minutes in the direct care of this critically ill patient, excluding procedure time. ED Disposition Clinical Impression: COPD (chronic obstructive pulmonary disease), COPD exacerbation, Hip pain, Contusion of rib on right side Disposition: DC-01 TO HOME OR SELFCARE Is pt being admited?: No Does the pt Need Aspirin: No Condition: Stable Instructions: Chronic Obstructive Pulmonary Disease (ED), Chronic Bronchitis (ED) Additional Instructions: return if worse Referrals: PRIMARY CARE,MD [Primary Care Provider] - 3-5 Days [facility] [Provider Group] - 3-5 Days [facility] [Provider Group] - 3-5 Days Time of Disposition: 20:51
--- NOTE | 2019-11-05 20:36 | XRay Report ---
RIGHT RIBS 2 VIEWS 2007 INDICATION: Fall 2 days ago COMPARISON: Chest x-ray 09/23/2019 FINDINGS: Lung gil appear clear of infiltrates. Mild chronic changes are seen. No pneumothorax is noted. No mediastinal widening is seen. No pleural effusions are obvious. No rib fractures are identi fied. The lower ribs are not well seen. PELVIS 2 VIEWS 2004 INDICATION: fall/pain COMPARISON: None available. FINDINGS: Right hip prosthesis appears to be in satisfactory position. Mild bilateral sacroiliac arth ritic changes are seen. Moderate left hip degenerative changes are noted. Mild lower lumbar degenerat poli changes are seen. An inferior vena cava filter is seen with tip at the L1 level. Cholecystectomy changes are seen. No fractures or dislocations are noted. Signer Name: Ramiro Higuera MD Signed: 11/05/2019 8:31 PM Workstation Name: [id number]
[2019-11-05 23:16] VITALS: BP 124/64
== END 2019-11-05 22:30 | disposition home or self-care (01) ==
LOC: ED 18:15
DX: S20.211A Contusion of right front wall of thorax, initial encounter (principal); J44.1 Chronic obstructive pulmonary disease with (acute) exacerbation; I10 Essential (primary) hypertension; K21.9 Gastro-esophageal reflux disease without esophagitis; M19.90 Unspecified osteoarthritis, unspecified site; F17.200 Nicotine dependence, unspecified, uncomplicated; Z90.49 Acquired absence of other specified parts of digestive tract; Z98.890 Other specified postprocedural states; Z79.899 Other long term (current) drug therapy; Z91.048 Other nonmedicinal substance allergy status; Z91.041 Radiographic dye allergy status; X58.XXXA Exposure to other specified factors, initial encounter; Y93.89 Activity, other specified; Y92.89 Other specified places as the place of occurrence of the external cause; Y99.8 Other external cause status
CPT/HCPCS: 71100; 72170; 94640; 96374; 99284; J2930; 94644; 94760; Q0162

== ENCOUNTER 2019-11-21 20:09 | Emergency (ER) | payer MEDICARE ==
--- NOTE | 2019-11-21 20:40 | Event Note ---
ED Screening Note Date of service: 11/21/19 Time: 20:35 ED Screening Note: This is a 69 y.o. F. that presents to ER for dyspnea. Symptoms started 1 week ago and worsening. Home O2 2L but currently on 5L due to worsening dyspnea. PMH COPD, Hep C, arthritis Current smoker This initial assessment/diagnostic orders/clinical plan/treatment(s) is/are subject to change based on patients health status, clinical progression and re- assessment by fellow clinical providers in the ED. Further treatment and workup at subsequent clinical providers discretion. Patient/guardian urged not to elope from the ED as their condition may be serious if not clinically assessed and managed. Initial orders include: Labs EKG CXR
--- NOTE | 2019-11-21 21:11 | XRay Report ---
CHEST 2 VIEWS INDICATION / CLINICAL INFORMATION: Dyspnea. Patient states that she has not felt well for about a week. COMPARISON: 09/23/19. FINDINGS: SUPPORT DEVICES: None. HEART / MEDIASTINUM: The heart size and pulmonary vasculature are normal. LUNGS / PLEURA: There is mild diffuse chronic interstitial lung disease. Mild linear scarring in the right upper lung is stable. Minimal left basilar subsegmental atelectasis has cleared. No pneumothora x. ADDITIONAL FINDINGS: There are old right rib fractures. IMPRESSION: No acute findings. Signer Name: Demar Rojas MD Signed: 11/21/2019 9:07 PM Workstation Name: [id number]
[2019-11-21 21:26] LABS: Basophils # (Auto) 0.1 K/mm3 (0.0-0.1); Basophils % (Auto) 1.3 % (0.0-1.8); Eosinophils # (Auto) 0.2 K/mm3 (0.0-0.4); Eosinophils % (Auto) 3.6 % (0.0-4.3); Hemoglobin 11.2 gm/dl (10.1-14.3); Lymphocytes # (Auto) 1.6 K/mm3 (1.2-5.4); Lymphocytes % (Auto) 28.7 % (13.4-35.0); Mean Corpuscular HGB Conc 33 % (30-34); Mean Corpuscular Volume 91 fl (79-97); Monocytes # (Auto) 0.5 K/mm3 (0.0-0.8); Monocytes % (Auto) 8.6 % (0.0-7.3); Platelet Count 233 K/mm3 (140-440); Red Blood Count 3.73 M/mm3 (3.65-5.03); Red Cell Distribution Width 17.3 % (13.2-15.2)
[2019-11-21 21:48] LABS: Alanine Aminotransferase 9 units/L (7-56); Albumin 4.1 g/dL (3.9-5); BUN/Creatinine Ratio 16; Blood Urea Nitrogen 11 mg/dL (7-17); Hemolysis Index 5
[2019-11-21] MEDS ORDERED: IBUPROFEN 400 MG TAB PO ONE (22:12)
[2019-11-21] MEDS ORDERED: ACETAMINOPHEN 500 MG TAB PO ONE (22:12)
--- NOTE | 2019-11-21 22:13 | Emergency Department Report ---
ED General Adult HPI - General Chief complaint: Sore Throat Stated complaint: MECCA Time Seen by Provider: 11/21/19 20:35 Source: patient, EMS ( EMS documentation not available at time of chart dictation ), RN notes reviewed, old records reviewed Mode of arrival: Stretcher Limitations: Other (Patient is able to weight-bear and walk with her walker) - History of Present Illness Initial comments: Primary care doctor: DR Guevara Past medical history: COPD, on home oxygen, history of pulmonary embolism, hepatitis C, liver cirrhosis, osteoarthritis, tobacco abuse, reported vascular dementia, admitted to this hospital in the past for right femur fracture, which was addressed by orthopedics. Today, the patient presents to the ER with a complaint of nontraumatic right-sided hip pain. She thinks is been present for a few days. She is not able to describe the qualitative nature of the pain. She indicates the pain does not radiate anywhere. She indicates the pain increases with palpation and range of motion. She indicates it decreases with rest. There is no knee pain or ankle pain. She makes no complaint of extremity weakness. There is no complaint of sore throat, pharyngeal foreign body, chest pain. She has mild chronic abdominal discomfort. She denies urinary symptoms. She has chronic shortness of breath. She lives at home with her boyfriend and family members. She reports that she has a walker at home. -: days(s) Location: right, lower extremity Radiation: other Severity scale (0 -10): 10 Quality: other Consistency: other Improves with: other Worsens with: other Associated Symptoms: other - Related Data Home Medications Medication Instructions Recorded Confirmed Last Taken ALBUTEROL NEB's [Proventil 0.083% 2.5 mg IH QID PRN 03/11/19 09/23/19 Unknown NEBS] Apixaban [Eliquis] 5 mg PO BID 03/11/19 09/23/19 Unknown Omeprazole 20 mg PO QDAY 03/11/19 09/23/19 Unknown donepeziL [Aricept] 5 mg PO QHS 03/11/19 09/23/19 Unknown Previous Rx's Medication Instructions Recorded Last Taken Type Quetiapine Fumarate [SEROquel] 400 mg PO HS #30 tablet 10/08/17 Unknown Rx PARoxetine HCl [PARoxetine] 40 mg PO QDAY #30 tablet 03/16/19 Unknown Rx guaiFENesin [Robitussin] 200 mg PO Q6H PRN tablet 03/16/19 Unknown Rx ALPRAZolam [Xanax TAB] 1 mg PO BID #60 tablet 03/19/19 Unknown Rx Apixaban [Eliquis] 5 mg PO BID #60 tablet 03/19/19 Unknown Rx PARoxetine [Paxil] 40 mg PO QDAY #30 tablet 03/19/19 Unknown Rx Propranolol LA [Inderal LA] 60 mg PO QDAY #30 capsule 03/19/19 Unknown Rx QUEtiapine [SEROquel] 400 mg PO HS #30 tablet 03/19/19 Unknown Rx Simvastatin 20 mg PO HS #30 tablet 03/19/19 Unknown Rx donepeziL [Aricept] 5 mg PO QHS #30 tablet 03/19/19 Unknown Rx Ciprofloxacin HCl [Ciprofloxacin 500 mg PO Q12HR #14 tab 06/20/19 Unknown Rx TAB] Docusate Sodium [Colace] 100 mg PO BID PRN #60 capsule 06/20/19 Unknown Rx Lactulose 10 gm PO DAILY PRN #150 ml 06/20/19 Unknown Rx Ondansetron [Zofran Odt] 4 mg PO Q8HR PRN #14 tab.rapdis 07/12/19 Unknown Rx traMADoL [Ultram 50 MG tab] 50 mg PO Q4HR PRN #14 tablet 07/12/19 Unknown Rx Ciprofloxacin HCl [Ciprofloxacin 500 mg PO Q12HR #12 tab 09/25/19 Unknown Rx TAB] Prednisone [predniSONE 10 mg 10 mg PO .TAPER #1 tab.ds.pk 09/25/19 Unknown Rx (6-Day Pack, 21 Tabs)] Albuterol INH(or & Nicu Only) 2 puff IH Q4HR PRN #1 inhalation 11/05/19 Unknown Rx [ProAir HFA Inhaler] Azithromycin [Zithromax Z-FRANCOIS] 250 mg PO DAILY #6 tablet 11/05/19 Unknown Rx HYDROcodone/APAP 5-325 [[place] 1 each PO Q6HR PRN #12 tablet 11/05/19 Unknown Rx 5/325] predniSONE [Deltasone] 20 mg PO DAILY #15 tablet 11/05/19 Unknown Rx Allergies Allergy/AdvReac Type Severity Reaction Status Date / Time Iodinated Contrast Media Allergy Itching Verified 01/09/19 17:24 [Iodinated Contrast Media - IV Dye] ivp dye Allergy Itching Uncoded 10/05/17 08:23 ED Review of Systems ROS: Stated complaint: MECCA Other details as noted in HPI Constitutional: see HPI Eyes: as per HPI ENT: as per HPI Respiratory: see HPI Cardiovascular: as per HPI Gastrointestinal: as per HPI Genitourinary: as per HPI Musculoskeletal: as per HPI, arthralgia Skin: as per HPI Neurological: as per HPI Psychiatric: as per HPI Hematological/Lymphatic: as per HPI ED Past Medical Hx - Past Medical History Previous Medical History?: Yes Hx Hypertension: Yes Hx GERD: Yes Hx Liver Disease: Yes (HEP C, cirrohsis) Hx Arthritis: Yes Hx Psychiatric Treatment: Yes (depression) Hx COPD: Yes (oxygen dependent) Hx Dementia: Yes Additional medical history: osteoporosis, sleep apnea/cpap @ night, Home O2-3L, emphysema - Surgical History Past Surgical History?: Yes Hx Cholecystectomy: Yes Additional Surgical History: thyroid surg t&a, right leg - Social History Smoking Status: Current Every Day Smoker Substance Use Type: None - Medications Home Medications: Home Medications Medication Instructions Recorded Confirmed Last Taken Type Quetiapine Fumarate [SEROquel] 400 mg PO HS #30 tablet 10/08/17 09/23/19 Unknown Rx ALBUTEROL NEB's [Proventil 0.083% 2.5 mg IH QID PRN 03/11/19 09/23/19 Unknown History NEBS] Apixaban [Eliquis] 5 mg PO BID 03/11/19 09/23/19 Unknown History Omeprazole 20 mg PO QDAY 03/11/19 09/23/19 Unknown History donepeziL [Aricept] 5 mg PO QHS 03/11/19 09/23/19 Unknown History PARoxetine HCl [PARoxetine] 40 mg PO QDAY #30 tablet 03/16/19 09/23/19 Unknown Rx guaiFENesin [Robitussin] 200 mg PO Q6H PRN tablet 03/16/19 09/23/19 Unknown Rx ALPRAZolam [Xanax TAB] 1 mg PO BID #60 tablet 03/19/19 09/23/19 Unknown Rx Apixaban [Eliquis] 5 mg PO BID #60 tablet 03/19/19 09/23/19 Unknown Rx PARoxetine [Paxil] 40 mg PO QDAY #30 tablet 03/19/19 09/23/19 Unknown Rx Propranolol LA [Inderal LA] 60 mg PO QDAY #30 capsule 03/19/19 09/23/19 Unknown Rx QUEtiapine [SEROquel] 400 mg PO HS #30 tablet 03/19/19 09/23/19 Unknown Rx Simvastatin 20 mg PO HS #30 tablet 03/19/19 09/23/19 Unknown Rx donepeziL [Aricept] 5 mg PO QHS #30 tablet 03/19/19 09/23/19 Unknown Rx Ciprofloxacin HCl [Ciprofloxacin 500 mg PO Q12HR #14 tab 06/20/19 09/23/19 Unknown Rx TAB] Docusate Sodium [Colace] 100 mg PO BID PRN #60 capsule 06/20/19 09/23/19 Unknown Rx Lactulose 10 gm PO DAILY PRN #150 ml 06/20/19 09/23/19 Unknown Rx Ondansetron [Zofran Odt] 4 mg PO Q8HR PRN #14 tab.rapdis 07/12/19 09/23/19 Unknown Rx traMADoL [Ultram 50 MG tab] 50 mg PO Q4HR PRN #14 tablet 07/12/19 09/23/19 Unknown Rx Ciprofloxacin HCl [Ciprofloxacin 500 mg PO Q12HR #12 tab 09/25/19 Unknown Rx TAB] Prednisone [predniSONE 10 mg 10 mg PO .TAPER #1 tab.ds.pk 09/25/19 Unknown Rx (6-Day Pack, 21 Tabs)] Albuterol INH(or & Nicu Only) 2 puff IH Q4HR PRN #1 inhalation 11/05/19 Unknown Rx [ProAir HFA Inhaler] Azithromycin [Zithromax Z-FRANCOIS] 250 mg PO DAILY #6 tablet 11/05/19 Unknown Rx HYDROcodone/APAP 5-325 [[place] 1 each PO Q6HR PRN #12 tablet 11/05/19 Unknown Rx 5/325] predniSONE [Deltasone] 20 mg PO DAILY #15 tablet 11/05/19 Unknown Rx ED Physical Exam - General Limitations: Physical Limitation, Other (During the entire history and physical examination, 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 Absent: nystagmus - ENT ENT exam: Present: normal exam, normal orophraynx, mucous membranes moist, normal external ear exam, other (Patient is speaking in full sentences. There is no stridor or dysphonia. There is no tenderness on the trachea. She is on chronic oxygen. The neck is supple) - Neck Neck exam: Present: normal inspection, full ROM. Absent: tenderness, meningismus - Respiratory Respiratory exam: Present: decreased breath sounds. Absent: respiratory distress, wheezes, rales, rhonchi, stridor - Cardiovascular Cardiovascular Exam: Present: regular rate, normal rhythm, normal heart sounds. Absent: bradycardia, tachycardia, irregular rhythm, systolic murmur, diastolic murmur, rubs, gallop - GI/Abdominal GI/Abdominal exam: Present: soft, normal bowel sounds. Absent: distended, tenderness, guarding, rebound, rigid, pulsatile mass - Extremities Exam Extremities exam: Present: normal inspection, tenderness (There is point tenderness on the right iliac crest, and right lateral hip. There is no redness, pus or streaking. There is no warmth. There is no effusion. Range of motion intact in the bilateral ankles, bilateral knees. Patient able to range the right hip, but indicates it somewhat painful.), other (2+ pulses noted in the bilateral upper and lower extremities. There is no palpable cord. negative Homans sign. Muscular compartments are soft. The pelvis is stable.). Absent: calf tenderness - Back Exam Back exam: Present: normal inspection, full ROM. Absent: tenderness, CVA tenderness (R), CVA tenderness (L), paraspinal tenderness, vertebral tenderness - Neurological Exam Neurological exam: Present: alert, other (There is no facial droop. The tongue is midline. Extraocular movements are intact bilaterally. There is 5 out of 5 strength in bilateral upper and lower extremities. Sensation is intact to light touch bilateral upper and lower extremities. t.) - Psychiatric Psychiatric exam: Present: flat affect - Skin Skin exam: Present: warm, dry, intact, normal color. Absent: rash ED Course Vital Signs 11/21/19 11/21/19 11/21/19 20:13 20:39 22:05 Temperature 97.8 F 97.8 F 97.9 F Pulse Rate 125 H 126 H 95 H Respiratory 18 18 15 Rate Blood Pressure 102/67 102/67 Blood Pressure 126/67 [Left] O2 Sat by Pulse 97 97 100 Oximetry 11/21/19 22:50 Temperature Pulse Rate 90 Respiratory 20 Rate Blood Pressure Blood Pressure 126/70 [Left] O2 Sat by Pulse 100 Oximetry ED Medical Decision Making - Lab Data Result diagrams: 11/21/19 21:00 11/21/19 21:00 Vital Signs 11/21/19 11/21/19 11/21/19 20:13 20:39 22:05 Temperature 97.8 F 97.8 F 97.9 F Pulse Rate 125 H 126 H 95 H Respiratory 18 18 15 Rate Blood Pressure 102/67 102/67 Blood Pressure 126/67 [Left] O2 Sat by Pulse 97 97 100 Oximetry 11/21/19 22:50 Temperature Pulse Rate 90 Respiratory 20 Rate Blood Pressure Blood Pressure 126/70 [Left] O2 Sat by Pulse 100 Oximetry Lab Results 11/21/19 11/21/19 Range/Units 21:00 21:00 WBC 5.6 (4.5-11.0) K/mm3 RBC 3.73 (3.65-5.03) M/mm3 Hgb 11.2 (10.1-14.3) gm/dl Hct 34.0 (30.3-42.9) % MCV 91 (79-97) fl MCH 30 (28-32) pg MCHC 33 (30-34) % RDW 17.3 H (13.2-15.2) % Plt Count 233 (140-440) K/mm3 Lymph % (Auto) 28.7 (13.4-35.0) % Major % (Auto) 8.6 H (0.0-7.3) % Eos % (Auto) 3.6 (0.0-4.3) % Baso % (Auto) 1.3 (0.0-1.8) % Lymph # 1.6 (1.2-5.4) K/mm3 Major # 0.5 (0.0-0.8) K/mm3 Eos # 0.2 (0.0-0.4) K/mm3 Baso # 0.1 (0.0-0.1) K/mm3 Seg Neutrophils % 57.8 (40.0-70.0) % Seg Neutrophils # 3.2 (1.8-7.7) K/mm3 Sodium 140 (137-145) mmol/L Potassium 3.6 (3.6-5.0) mmol/L Chloride 101.3 (98-107) mmol/L Carbon Dioxide 25 (22-30) mmol/L Anion Gap 17 mmol/L BUN 11 (7-17) mg/dL Creatinine 0.7 (0.7-1.2) mg/dL Estimated GFR > 60 ml/min BUN/Creatinine Ratio 16 % Glucose 110 H (65-100) mg/dL Calcium 9.0 (8.4-10.2) mg/dL Total Bilirubin 0.20 (0.1-1.2) mg/dL AST 13 (5-40) units/L ALT 9 (7-56) units/L Alkaline Phosphatase 115 (35-129) units/L Total Protein 7.1 (6.3-8.2) g/dL Albumin 4.1 (3.9-5) g/dL Albumin/Globulin Ratio 1.4 % - EKG Data 11/21/19 23:04 This is a sinus rhythm, 96 bpm, left axis deviation, QTC 442 ms, motion artifact, no endorsement of chest pain, the EKG is not a STEMI - Radiology Data Radiology results: report reviewed, image reviewed interpreted by me: X-ray of the pelvis and right hip show DJD, right-sided femur orthopedic hardware, no obvious fracture or dislocation. X-ray of the chest is negative for acute disease. Chronic findings noted. - Medical Decision Making Differential diagnosis, including but not limited to: Arthritis, tendinitis, adhesive capsulitis Assessment and plan: 69-year-old female with a primary complaint of hip pain. She is afebrile with reassuring vital signs. She has point tenderness in the lateral aspect of the right hip. Her examination is not consistent with cellul itis, abscess or compartment syndrome. X-rays do not show fracture or obvious dislocation to my interpretation. Please note that laboratory studies and x-ray the chest were ordered prior to my personal evaluation of this patient. Patient resting comfortably in her stretcher at this time, and in no acute distress. The patient does not appear to have an emergent medical condition at this time. She reported to me that she walks at home with a walker, that she lives with her boyfriend, and family members are at the house. She will need to follow-up with her outpatient primary care doctor or orthopedist, for evaluation for possible physical therapy and rehabilitation. Critical care attestation.: If time is entered above; I have spent that time in minutes in the direct care of this critically ill patient, excluding procedure time. ED Disposition Clinical Impression: Right hip pain Disposition: [id number] TO HOME OR SELFCARE Is pt being admited?: No Does the pt Need Aspirin: No Condition: Stable Additional Instructions: Participate in weightbearing as tolerated. Use home walker as often as po ssible. Patient may take [id number] Tylenol, 325 mg by mouth, every 6 hours, alternating with ibuprofen, 400 mg by mouth, with food, every 6 hours as needed for pain. We recommend the patient follow-up with her primary care doctor or orthopedist within the next 7 to 10 days for evaluation for possible rehabilitation and physical therapy. Please return to the emergency room right away with new, worsened or different symptoms, or symptoms not present on the initial emergency room evaluation. X-ray of the right hip and pelvis were interpreted as negative for acute findings by the emergency room physician, however, it will be read by a radiologist within the next 12 hours. Occasionally, there is a discrepancy/disparity between the initial and final x-ray interpretations. Therefore, please have your primary care doctor or orthopedist contact the medical records department to obtain formal x-ray interpretation, to ascertain if there have been any disparities or discrepancies. Referrals: MITCHELL GUEVARA MD [Staff Physician] - 7-10 days JON CALLOWAY MD [Staff Physician] - 7-10 days
--- NOTE | 2019-11-21 23:06 | XRay Report ---
RIGHT HIP 2 VIEWS INDICATION / CLINICAL INFORMATION: Right hip pain. COMPARISON: 11/05/19. FINDINGS: BONES / JOINT(S): There is a right hip prosthesis. There is no evidence of fracture or dislocation. T here are mild degenerative changes involving the left hip and lower lumbar spine. SOFT TISSUES: Heterotopic ossification along the lateral margin of the right hip is stable. ADDITIONAL FINDINGS: None. IMPRESSION: No acute abnormality. Signer Name: Demar Rojas MD Signed: 11/21/2019 11:02 PM Workstation Name: [id number]
[2019-11-21 23:27] VITALS: BP 116/56
== END 2019-11-21 23:26 | disposition home or self-care (01) ==
LOC: ED 20:09
DX: M25.551 Pain in right hip (principal); I10 Essential (primary) hypertension; K21.9 Gastro-esophageal reflux disease without esophagitis; K76.9 Liver disease, unspecified; M19.91 Primary osteoarthritis, unspecified site; F32.9 Major depressive disorder, single episode, unspecified; F03.90 Unspecified dementia, unspecified severity, without behavioral disturbance, psychotic disturbance, mood disturbance, and anxiety; M81.0 Age-related osteoporosis without current pathological fracture; F17.200 Nicotine dependence, unspecified, uncomplicated; G47.30 Sleep apnea, unspecified; J43.9 Emphysema, unspecified; Z98.890 Other specified postprocedural states; Z90.49 Acquired absence of other specified parts of digestive tract; Z79.899 Other long term (current) drug therapy; Z88.8 Allergy status to other drugs, medicaments and biological substances
CPT/HCPCS: 36415; 71046; 80053; 85025; 93005; 93010

== ENCOUNTER 2019-12-06 17:05 | Emergency (ER) | payer MEDICARE ==
--- NOTE | 2019-12-06 18:11 | Emergency Department Report ---
Blank Doc - Documentation Documentation: 69-year-old female that presents with abdominal pain and n/v. HX of Hep C and liver cirrhosis. This initial assessment/diagnostic orders/clinical plan/treatment(s) is/are subject to change based on patient's health status, clinical progression and re- assessment by fellow clinical providers in the ED. Further treatment and workup at subsequent clinical providers discretion. Patient/guardians urged not to elope from the ED as their condition may be serious if not clinically assessed and managed. Initial orders include: 1- Patient sent to MAIN ED for further evaluation and treatment 2- labs 3- UA
[2019-12-06 18:30] LABS: Basophils % (Auto) 0.2 % (0.0-1.8); Eosinophils # (Auto) 0.2 K/mm3 (0.0-0.4); Eosinophils % (Auto) 4.2 % (0.0-4.3); Hematocrit 32.7 % (30.3-42.9); Lymphocytes # (Auto) 1.8 K/mm3 (1.2-5.4); Lymphocytes % (Auto) 35.7 % (13.4-35.0); Mean Corpuscular HGB Conc 34 % (30-34); Mean Corpuscular Volume 92 fl (79-97); Monocytes # (Auto) 0.5 K/mm3 (0.0-0.8); Monocytes % (Auto) 10.4 % (0.0-7.3); Platelet Count 285 K/mm3 (140-440); Red Blood Count 3.58 M/mm3 (3.65-5.03); Red Cell Distribution Width 17.5 % (13.2-15.2)
[2019-12-06 18:34] LABS: Bilirubin,Urine NEG (Negative); Blood,Urine NEG (Negative); Color,Urine Straw (Yellow); Protein,Urine <15 mg/dL mg/dL (Negative); Urobilinogen,Urine < 2.0 mg/dL (<2.0)
[2019-12-06 18:53] LABS: Alanine Aminotransferase 7 units/L (7-56); Albumin 3.9 g/dL (3.9-5); BUN/Creatinine Ratio 18; Blood Urea Nitrogen 11 mg/dL (7-17); Hemolysis Index 15
[2019-12-06] MEDS ORDERED: FAMOTIDINE 20 MG TAB PO ONE (20:27)
[2019-12-06] MEDS ORDERED: SUCRALFATE 1 GM/10 ML ORAL LIQD PO ONE (20:27)
[2019-12-06] MEDS ORDERED: ONDANSETRON 2 MG/2.5 ML ORAL LIQD PO ONE (20:27)
--- NOTE | 2019-12-06 20:29 | Emergency Department Report ---
ED General Adult HPI - General Chief complaint: Abdominal Pain Stated complaint: N/V Time Seen by Provider: 12/06/19 18:09 Source: patient, RN notes reviewed, old records reviewed Mode of arrival: Ambulatory Limitations: No Limitations - History of Present Illness Initial comments: This is a 69-year-old female. I have evaluated this patient in the past. Primary care doctor: Dr Guevara Past medical history: COPD, on home oxygen, history of pulmonary embolism, hepatitis C, liver cirrhosis, osteoarthritis, vascular dementia, distant history of right femur replacement This patient is a 69-year-old female who presents to the ER with a complaint of 1 week diffuse abdominal cramping, reported nausea. Abdominal cramping is diffuse, does not radiate anywhere, and does not have exacerbating or relieving factors. She is nauseous but has not vomited. There is no complaint of headache, neck pain, chest pain, New or different shortness of breath, irritative/obstructive urinary symptoms. She also endorses bilateral anterior tibial discomfort, nontraumatic, present for quite some time. -: Gradual, days(s), week(s) Location: abdomen, left, right, lower extremity Radiation: other Quality: other Consistency: other Improves with: other Worsens with: other Associated Symptoms: other - Related Data Home Medications Medication Instructions Recorded Confirmed Last Taken ALBUTEROL NEB's [Proventil 0.083% 2.5 mg IH QID PRN 03/11/19 09/23/19 Unknown NEBS] Apixaban [Eliquis] 5 mg PO BID 03/11/19 09/23/19 Unknown Omeprazole 20 mg PO QDAY 03/11/19 09/23/19 Unknown donepeziL [Aricept] 5 mg PO QHS 03/11/19 09/23/19 Unknown Previous Rx's Medication Instructions Recorded Last Taken Type Quetiapine Fumarate [SEROquel] 400 mg PO HS #30 tablet 10/08/17 Unknown Rx PARoxetine HCl [PARoxetine] 40 mg PO QDAY #30 tablet 03/16/19 Unknown Rx guaiFENesin [Robitussin] 200 mg PO Q6H PRN tablet 03/16/19 Unknown Rx Apixaban [Eliquis] 5 mg PO BID #60 tablet 03/19/19 Unknown Rx PARoxetine [Paxil] 40 mg PO QDAY #30 tablet 03/19/19 Unknown Rx Propranolol LA [Inderal LA] 60 mg PO QDAY #30 capsule 03/19/19 Unknown Rx QUEtiapine [SEROquel] 400 mg PO HS #30 tablet 03/19/19 Unknown Rx Simvastatin 20 mg PO HS #30 tablet 03/19/19 Unknown Rx donepeziL [Aricept] 5 mg PO QHS #30 tablet 03/19/19 Unknown Rx Docusate Sodium [Colace] 100 mg PO BID PRN #60 capsule 06/20/19 Unknown Rx Lactulose 10 gm PO DAILY PRN #150 ml 06/20/19 Unknown Rx Ondansetron [Zofran Odt] 4 mg PO Q8HR PRN #14 tab.rapdis 07/12/19 Unknown Rx Prednisone [predniSONE 10 mg 10 mg PO .TAPER #1 tab.ds.pk 09/25/19 Unknown Rx (6-Day Pack, 21 Tabs)] Albuterol INH(or & Nicu Only) 2 puff IH Q4HR PRN #1 inhalation 11/05/19 Unknown Rx [ProAir HFA Inhaler] predniSONE [Deltasone] 20 mg PO DAILY #15 tablet 11/05/19 Unknown Rx Famotidine [Pepcid] 20 mg PO BID #30 tablet 12/06/19 Unknown Rx Ondansetron [Zofran Odt] 4 mg PO Q8HR PRN #20 tab.rapdis 12/06/19 Unknown Rx Allergies Allergy/AdvReac Type Severity Reaction Status Date / Time Iodinated Contrast Media Allergy Itching Verified 01/09/19 17:24 [Iodinated Contrast Media - IV Dye] ivp dye Allergy Itching Uncoded 10/05/17 08:23 ED Review of Systems ROS: Stated complaint: N/V Other details as noted in HPI Constitutional: denies: fever Eyes: denies: eye discharge ENT: denies: congestion Respiratory: cough (Chronic cough, chronic wheezing, chronic shortness of breath) Cardiovascular: denies: syncope Gastrointestinal: abdominal pain. denies: hematemesis, melena, hematochezia Genitourinary: denies: dysuria Musculoskeletal: arthralgia Skin: as per HPI Neurological: as per HPI Psychiatric: as per HPI Hematological/Lymphatic: as per HPI ED Past Medical Hx - Past Medical History Previous Medical History?: Yes Hx Hypertension: Yes Hx GERD: Yes Hx Liver Disease: Yes (HEP C, cirrohsis) Hx Arthritis: Yes Hx Psychiatric Treatment: Yes (depression) Hx COPD: Yes (oxygen dependent) Hx Dementia: Yes Additional medical history: osteoporosis, sleep apnea/cpap @ night, Home O2-3L, emphysema - Surgical History Past Surgical History?: Yes Hx Cholecystectomy: Yes Additional Surgical History: thyroid surg t&a, right leg - Social History Smoking Status: Never Smoker Substance Use Type: None - Medications Home Medications: Home Medications Medication Instructions Recorded Confirmed Last Taken Type Quetiapine Fumarate [SEROquel] 400 mg PO HS #30 tablet 10/08/17 09/23/19 Unknown Rx ALBUTEROL NEB's [Proventil 0.083% 2.5 mg IH QID PRN 03/11/19 09/23/19 Unknown History NEBS] Apixaban [Eliquis] 5 mg PO BID 03/11/19 09/23/19 Unknown History Omeprazole 20 mg PO QDAY 03/11/19 09/23/19 Unknown History donepeziL [Aricept] 5 mg PO QHS 03/11/19 09/23/19 Unknown History PARoxetine HCl [PARoxetine] 40 mg PO QDAY #30 tablet 03/16/19 09/23/19 Unknown Rx guaiFENesin [Robitussin] 200 mg PO Q6H PRN tablet 03/16/19 09/23/19 Unknown Rx Apixaban [Eliquis] 5 mg PO BID #60 tablet 03/19/19 09/23/19 Unknown Rx PARoxetine [Paxil] 40 mg PO QDAY #30 tablet 03/19/19 09/23/19 Unknown Rx Propranolol LA [Inderal LA] 60 mg PO QDAY #30 capsule 03/19/19 09/23/19 Unknown Rx QUEtiapine [SEROquel] 400 mg PO HS #30 tablet 03/19/19 09/23/19 Unknown Rx Simvastatin 20 mg PO HS #30 tablet 03/19/19 09/23/19 Unknown Rx donepeziL [Aricept] 5 mg PO QHS #30 tablet 03/19/19 09/23/19 Unknown Rx Docusate Sodium [Colace] 100 mg PO BID PRN #60 capsule 06/20/19 09/23/19 Unknown Rx Lactulose 10 gm PO DAILY PRN #150 ml 06/20/19 09/23/19 Unknown Rx Ondansetron [Zofran Odt] 4 mg PO Q8HR PRN #14 tab.rapdis 07/12/19 09/23/19 Unknown Rx Prednisone [predniSONE 10 mg 10 mg PO .TAPER #1 tab.ds.pk 09/25/19 Unknown Rx (6-Day Pack, 21 Tabs)] Albuterol INH(or & Nicu Only) 2 puff IH Q4HR PRN #1 inhalation 11/05/19 Unknown Rx [ProAir HFA Inhaler] predniSONE [Deltasone] 20 mg PO DAILY #15 tablet 11/05/19 Unknown Rx Famotidine [Pepcid] 20 mg PO BID #30 tablet 12/06/19 Unknown Rx Ondansetron [Zofran Odt] 4 mg PO Q8HR PRN #20 tab.rapdis 12/06/19 Unknown Rx ED Physical Exam - General Limitations: No Limitations General appearance: alert, in no apparent distress - Head Head exam: Present: atraumatic, normocephalic - Eye Eye exam: Present: normal appearance, EOMI. Absent: nystagmus - ENT ENT exam: Present: normal exam, normal orophraynx, mucous membranes moist, normal external ear exam - Neck Neck exam: Present: normal inspection, full ROM. Absent: tenderness, meningismus - Respiratory Respiratory exam: Present: normal lung sounds bilaterally. Absent: respiratory distress - Cardiovascular Cardiovascular Exam: Present: regular rate, normal rhythm, normal heart sounds. Absent: bradycardia, tachycardia, irregular rhythm, systolic murmur, diastolic murmur, rubs, gallop - GI/Abdominal GI/Abdominal exam: Present: soft, normal bowel sounds. Absent: distended, tenderness, guarding, rebound, rigid, pulsatile mass - Extremities Exam Extremities exam: Present: normal inspection, full ROM, other (2+ pulses noted in the bilateral upper and lower extremities. There is no palpable cord. negative Homans sign. Muscular compartments are soft. The pelvis is stable.). Absent: pedal edema, calf tenderness - Back Exam Back exam: Present: normal inspection, full ROM. Absent: tenderness, CVA tenderness (R), CVA tenderness (L), paraspinal tenderness, vertebral tenderness - Neurological Exam Neurological exam: Present: alert, other (There is no facial droop. The tongue is midline. Extraocular movements are intact bilaterally. There is 5 out of 5 strength in bilateral upper and lower extremities. Sensation is intact to light touch bilateral upper and lower extremities. ). Absent: motor sensory deficit - Psychiatric Psychiatric exam: Present: normal affect, normal mood - Skin Skin exam: Present: warm, dry, intact, normal color. Absent: rash ED Course Vital Signs 12/06/19 12/06/19 18:10 21:12 Temperature 98.1 F Pulse Rate 81 70 Respiratory 18 18 Rate Blood Pressure 133/72 Blood Pressure 127/74 [Left] O2 Sat by Pulse 100 99 Oximetry ED Medical Decision Making - Lab Data Result diagrams: 12/06/19 18:13 12/06/19 18:13 Vital Signs 12/06/19 12/06/19 18:10 21:12 Temperature 98.1 F Pulse Rate 81 70 Respiratory 18 18 Rate Blood Pressure 133/72 Blood Pressure 127/74 [Left] O2 Sat by Pulse 100 99 Oximetry Lab Results 12/06/19 12/06/19 12/06/19 Range/Units 18:00 18:13 18:13 WBC 5.1 (4.5-11.0) K/mm3 RBC 3.58 L (3.65-5.03) M/mm3 Hgb 11.0 (10.1-14.3) gm/dl Hct 32.7 (30.3-42.9) % MCV 92 (79-97) fl MCH 31 (28-32) pg MCHC 34 (30-34) % RDW 17.5 H (13.2-15.2) % Plt Count 285 (140-440) K/mm3 Lymph % (Auto) 35.7 H (13.4-35.0) % [place] % (Auto) 10.4 H (0.0-7.3) % Eos % (Auto) 4.2 (0.0-4.3) % Baso % (Auto) 0.2 (0.0-1.8) % Lymph # 1.8 (1.2-5.4) K/mm3 [place] # 0.5 (0.0-0.8) K/mm3 Eos # 0.2 (0.0-0.4) K/mm3 Baso # 0.0 (0.0-0.1) K/mm3 Seg Neutrophils % 49.5 (40.0-70.0) % Seg Neutrophils # 2.5 (1.8-7.7) K/mm3 Sodium 139 (137-145) mmol/L Potassium 4.3 (3.6-5.0) mmol/L Chloride 103.5 (98-107) mmol/L Carbon Dioxide 23 (22-30) mmol/L Anion Gap 17 mmol/L BUN 11 (7-17) mg/dL Creatinine 0.6 L (0.7-1.2) mg/dL Estimated GFR > 60 ml/min BUN/Creatinine Ratio 18 % Glucose 89 (65-100) mg/dL Calcium 9.0 (8.4-10.2) mg/dL Magnesium 2.20 (1.7-2.3) mg/dL Total Bilirubin 0.30 (0.1-1.2) mg/dL AST 13 (5-40) units/L ALT 7 (7-56) units/L Alkaline Phosphatase 107 (35-129) units/L Total Creatine Kinase 33 (30-135) units/L Total Protein 6.9 (6.3-8.2) g/dL Albumin 3.9 (3.9-5) g/dL Albumin/Globulin Ratio 1.3 % Lipase 17 (13-60) units/L Urine Color (Yellow) Urine Turbidity (Clear) Urine pH (5.0-7.0) Ur Specific [place] (1.003-1.030) Urine Protein (Negative) mg/dL Urine Glucose (UA) (Negative) mg/dL Urine Ketones (Negative) mg/dL Urine Blood (Negative) Urine Nitrite (Negative) Urine Bilirubin (Negative) Urine Urobilinogen (<2.0) mg/dL Ur Leukocyte Esterase (Negative) Urine WBC (Auto) (0.0-6.0) /HPF Urine RBC (Auto) (0.0-6.0) /HPF // Range/Units 18:23 WBC (4.5-11.0) K/mm3 RBC (3.65-5.03) M/mm3 Hgb (10.1-14.3) gm/dl Hct (30.3-42.9) % MCV (79-97) fl MCH (28-32) pg MCHC (30-34) % RDW (13.2-15.2) % Plt Count (140-440) K/mm3 Lymph % (Auto) (13.4-35.0) % [place] % (Auto) (0.0-7.3) % Eos % (Auto) (0.0-4.3) % Baso % (Auto) (0.0-1.8) % Lymph # (1.2-5.4) K/mm3 [place] # (0.0-0.8) K/mm3 Eos # (0.0-0.4) K/mm3 Baso # (0.0-0.1) K/mm3 Seg Neutrophils % (40.0-70.0) % Seg Neutrophils # (1.8-7.7) K/mm3 Sodium (137-145) mmol/L Potassium (3.6-5.0) mmol/L Chloride (98-107) mmol/L Carbon Dioxide (22-30) mmol/L Anion Gap mmol/L BUN (7-17) mg/dL Creatinine (0.7-1.2) mg/dL Estimated GFR ml/min BUN/Creatinine Ratio % Glucose (65-100) mg/dL Calcium (8.4-10.2) mg/dL Magnesium (1.7-2.3) mg/dL Total Bilirubin (0.1-1.2) mg/dL AST (5-40) units/L ALT (7-56) units/L Alkaline Phosphatase (35-129) units/L Total Creatine Kinase (30-135) units/L Total Protein (6.3-8.2) g/dL Albumin (3.9-5) g/dL Albumin/Globulin Ratio % Lipase (13-60) units/L Urine Color Straw (Yellow) Urine Turbidity Clear (Clear) Urine pH 8.0 H (5.0-7.0) Ur Specific [place] 1.005 (1.003-1.030) Urine Protein <15 mg/dl (Negative) mg/dL Urine Glucose (UA) Neg (Negative) mg/dL Urine Ketones Neg (Negative) mg/dL Urine Blood Neg (Negative) Urine Nitrite Neg (Negative) Urine Bilirubin Neg (Negative) Urine Urobilinogen < 2.0 (<2.0) mg/dL Ur Leukocyte Esterase Neg (Negative) Urine WBC (Auto) 1.0 (0.0-6.0) /HPF Urine RBC (Auto) 1.0 (0.0-6.0) /HPF - EKG Data -: EKG Interpreted by Ok EKG shows normal: sinus rhythm Rate: normal - EKG Data 12/06/19 21:23 Sinus rhythm, 69 bpm, left axis deviation, QTC 438 ms, low voltage in the inferior leads, Q waves noted in lead III. The EKG is abnormal. It is not a STEMI. - Radiology Data Radiology results: pending, report reviewed, image reviewed Print Report Referring Physician: ISRA FLAHERTY Patient Name: RADHA NETTLES Date of : 1950 Sex: Female Report Date: 2019-12-06 Report Status: Finalized Findings [facility] [address] [place] [address] Cat Scan Report Signed Patient: RADHA NETTLES MR#: [id number] : 1950 Acct:[id number] Age/Sex: 69 / F ADM Date: 12/06/19 Loc: ED Attending Dr: Ordering Physician: ISRA FLAHERTY MD Date of Service: 12/06/19 Procedure(s): CT abdomen pelvis wo con Accession Number(s): [id number] cc: ISRA FLAHERTY MD CT ABDOMEN AND PELVIS WITHOUT CONTRAST INDICATION: abd pain n/v. TECHNIQUE: Axial CT images were obtained through the abdomen and pelvis without IV contrast. All CT scans at this location are performed using CT dose reduction for ALARA by means of automated exposure control. COMPARISON: CT abdomen and pelvis 06/20/2019 FINDINGS: LOWER CHEST: Extensive coronary artery calcifications and small hiatal hernia, unchanged. Mild chronic interstitial disease, unchanged. Stable 5 mm right middle lobe pulmonary nodule image 11. LIVER: Mild cirrhotic morphology with nodular surface contour and 2 small hepatic cysts. GALLBLADDER: Surgically absent. BILE DUCTS: No significant abnormality. PANCREAS: No significant abnormality. SPLEEN: No significant abnormality. ADRENALS: No significant abnormality. RIGHT KIDNEY and URETER: Linear calcification right adrenal gland again noted. LEFT KIDNEY and URETER: No significant abnormality. STOMACH and SMALL BOWEL: No significant abnormality. COLON: No significant abnormality. APPENDIX: No significant abnormality. PERITONEUM: No free fluid. No free air. No fluid collection. LYMPH NODES: No significant adenopathy. AORTA and ARTERIES: Extensive vascular calcifications throughout nonaneurysmal abdominal aorta IVC and VEINS: IVC filter URINARY BLADDER: No significant abnormality. REPRODUCTIVE ORGANS: No significant abnormality. ADDITIONAL FINDINGS: None. SKELETAL SYSTEM: New bipolar right hip replacement with old nonunited fracture of greater trochanter, unchanged. Moderate degenerative arthrosis of left hip again noted. Moderately advanced degenerative changes of lumbar spine. IMPRESSION: 1. No acute inflammatory process or bowel obstruction. 2. No urinary tract calculi or hydronephrosis. 3. Mild cirrhosis without CT evidence for portal hypertension 4. Stable incidental 5 mm right middle lobe pulmonary nodule INCIDENTAL PULMONARY NODULE RECOMMENDATION RECOMMENDATION: Solid Nodule size <6 mm -- Single or Multiple - Low Risk Patient: No routine follow-up - High Risk Patient: Optional CT at 12 mo nths Note These recommendations do not apply to lung cancer screening, patients with immunosuppression, or patients with known primary cancer. Note Newly detected indeterminate nodule in persons 35 years of age or older. Persons under the age of 35 should not receive follow-up unless there is a known primary cancer. Note A Perifissural Nodule is a fissure-attached/subpleural, homogeneous, solid nodule that had smooth margins and an oval, lentiform, or triangular shape. They represent about 20% of nodules detected in lung cancer screening, are invariably benign, and do not require follow-up. Nodules 10 mm or larger (or those with suspicious features) will continue to be managed based on the size criteria. Low Risk Patient -- minimal or absent history of smoking and of other known risk factors. High Risk Patient -- history of smoking or of other known risk factors. Nodule dimensions are average of long and short axes, rounded to the nearest millimeter. Based on 2017 Fleischner Society Guidelines found in Radiology 2017 284:228-243. https://doi.org/10.1148/radiol.[email or web address] https://www.ncbi.nlm.nih.gov/pmc/articles/URG8554450/ Signer Name: Ted Cordero MD Signed: 12/06/2019 9:15 PM Workstation Name: [id number] Transcribed By: TL Dictated By: Ted Cordero MD Electronically Authenticated By: Ted Cordero MD Signed Date/Time: 12/06/192114 DD/ 07 TD/ TT: - Medical Decision Making Differential diagnosis, including but not limited to: GERD, gastritis, hiatal hernia, constipation, urinary tract infection, functional abdominal pain Assessment and plan: 69-year-old female whom I have recently evaluated in the past, today with a complaint of nausea and abdominal pain. She is afebrile with reassuring vital signs. She is given oral medication without vomiting. Laboratory studies are unremarkable. Physical exam is unremarkable. Laboratory studies are unremarkable. We highly doubt intra-abdominal pathology that would require emergent surgical intervention or antibiotic use, however, given her ad vanced age, medical comorbidities, history of dementia, noncontrast CT scan of the abdomen pelvis is obtained, given her reported history of allergy to IV dye, did not demonstrate any acute pathology. This patient is observed in the department for hours without clinical decompensation. The patient does not appear to have an emergent medical condition at this time. She can follow-up with her outpatient primary care doctor. Critical care attestation.: If time is entered above; I have spent that time in minutes in the direct care of this critically ill patient, excluding procedure time. ED Disposition Clinical Impression: History of abdominal pain, History of nausea Disposition: DC-01 TO HOME OR SELFCARE Is pt being admited?: No Does the pt Need Aspirin: No Condition: Stable Additional Instructions: Avoid consumption of Motrin, ibuprofen, Naprosyn, Aleve. Avoid consumption of heavy and/or spicy foods. Take the prescribed medications as needed and directed. Follow-up with your primary care doctor within the next 7 to 10 days. Avoid consumption of alcohol. Please return to the emergency room right away with new, worsened or different symptoms, or symptoms not present on the initial emergency room evaluation. CT scan of the abdomen pelvis obtained today did not show any acute disease that would require emergent intervention at this time. However, nonspecific incidental findings have been noted, and these should be followed up by your primary care doctor within the next 6 weeks. Please have your primary care doctor contact the medical records department to obtain copy of CT scan, and pertinent laboratory studies. Not communicating this need to your primary physician to follow-up on nonemergent incidental findings may result in undiagnosed cancer, tumor, malignancy. Therefore, the patient has a responsibility to communicate the need for her primary care doctor to follow-up on nonemergent incidental findings Prescriptions: Famotidine [Pepcid] 20 mg PO BID #30 tablet Ondansetron [Zofran Odt] 4 mg PO Q8HR PRN #20 tab.rapdis PRN Reason: Nausea Referrals: MITCHELL GUEVARA MD [Staff Physician] - 7-10 days
[2019-12-06 21:13] VITALS: BP 127/74
--- NOTE | 2019-12-06 21:19 | Cat Scan Report ---
CT ABDOMEN AND PELVIS WITHOUT CONTRAST INDICATION: abd pain n/v. TECHNIQUE: Axial CT images were obtained through the abdomen and pelvis without IV contrast. All CT scans at th is location are performed using CT dose reduction for ALARA by means of automated exposure control. COMPARISON: CT abdomen and pelvis 06/20/2019 FINDINGS: LOWER CHEST: Extensive coronary artery calcifications and small hiatal hernia, unchanged. Mild chroni c interstitial disease, unchanged. Stable 5 mm right middle lobe pulmonary nodule image 11. LIVER: Mild cirrhotic morphology with nodular surface contour and 2 small hepatic cysts. GALLBLADDER: Surgically absent. BILE DUCTS: No significant abnormality. PANCREAS: No significant abnormality. SPLEEN: No significant abnormality. ADRENALS: No significant abnormality. RIGHT KIDNEY and URETER: Linear calcification right adrenal gland again noted. LEFT KIDNEY and URETER: No significant abnormality. STOMACH and SMALL BOWEL: No significant abnormality. COLON: No significant abnormality. APPENDIX: No significant abnormality. PERITONEUM: No free fluid. No free air. No fluid collection. LYMPH NODES: No significant adenopathy. AORTA and ARTERIES: Extensive vascular calcifications throughout nonaneurysmal abdominal aorta IVC and VEINS: IVC filter URINARY BLADDER: No significant abnormality. REPRODUCTIVE ORGANS: No significant abnormality. ADDITIONAL FINDINGS: None. SKELETAL SYSTEM: New bipolar right hip replacement with old nonunited fracture of greater trochanter, unchanged. Moderate degenerative arthrosis of left hip again noted. Moderately advanced degenerative changes of lumbar spine. IMPRESSION: 1. No acute inflammatory process or bowel obstruction. 2. No urinary tract calculi or hydronephrosis. 3. Mild cirrhosis without CT evidence for portal hypertension 4. Stable incidental 5 mm right middle lobe pulmonary nodule INCIDENTAL PULMONARY NODULE RECOMMENDATION RECOMMENDATION: Solid Nodule size <6 mm -- Single or Multiple - Low Risk Patient: No routine follow-up - High Risk Patient: Optional CT at 12 months Note These recommendations do not apply to lung cancer screening, patients with immunosuppression, o r patients with known primary cancer. Note Newly detected indeterminate nodule in persons 35 years of age or older. Persons under the age of 35 should not receive follow-up unless there is a known primary cancer. Note A Perifissural Nodule is a fissure-attached/subpleural, homogeneous, solid nodule that had smoo th margins and an oval, lentiform, or triangular shape. They represent about 20% of nodules detected in lung cancer screening, are invariably benign, and do not require follow-up. Nodules 10 mm or large r (or those with suspicious features) will continue to be managed based on the size criteria. Low Risk Patient -- minimal or absent history of smoking and of other known risk factors. High Risk Patient -- history of smoking or of other known risk factors. Nodule dimensions are average of long and short axes, rounded to the nearest millimeter. Based on 2017 Fleischner Society Guidelines found in Radiology 2017 284:228-243. https://doi.org/10.1148/radiol.1962363683 https://www.ncbi.nlm.nih.gov/pmc/articles/JQJ1582010/ Signer Name: Ted Cordero MD Signed: 12/06/2019 9:15 PM Workstation Name: [id number]
== END 2019-12-06 22:30 | disposition home or self-care (01) ==
LOC: ED 17:05
DX: R10.84 Generalized abdominal pain (principal); R11.0 Nausea; I10 Essential (primary) hypertension; Z86.19 Personal history of other infectious and parasitic diseases; Z88.8 Allergy status to other drugs, medicaments and biological substances; Z90.49 Acquired absence of other specified parts of digestive tract
CPT/HCPCS: 36415; 74176; 80053; 81001; 82550; 83690; 83735; 85025; 93005; 93010; 99284; Q0162

== ENCOUNTER 2020-05-02 10:08 | Emergency (ER) | payer MEDICARE ==
--- NOTE | 2020-05-02 10:34 | Event Note ---
ED Screening Note Date of service: 05/02/20 Time: 10:33 ED Screening Note: c/o RUQ pain poor historian This initial assessment/diagnostic orders/clinical plan/treatment(s) is/are subject to change based on patients health status, clinical progression and re- assessment by fellow clinical providers in the ED. Further treatment and workup at subsequent clinical providers discretion. Patient/guardian urged not to elope from the ED as their condition may be serious if not clinically assessed and managed. Initial orders include: labs
[2020-05-02 10:37] VITALS: BP 150/64
[2020-05-02 11:26] LABS: Bilirubin,Urine NEG (Negative); Blood,Urine SM (Negative); Color,Urine Yellow (Yellow); Mucus,Urine FEW /HPF; Protein,Urine <15 mg/dL mg/dL (Negative); Urobilinogen,Urine < 2.0 mg/dL (<2.0)
[2020-05-02 11:33] LABS: Basophils # (Auto) 0.1 K/mm3 (0.0-0.1); Basophils % (Auto) 0.9 % (0.0-1.8); Eosinophils # (Auto) 0.1 K/mm3 (0.0-0.4); Eosinophils % (Auto) 1.4 % (0.0-4.3); Hematocrit 34.7 % (30.3-42.9); Hemoglobin 11.7 gm/dl (10.1-14.3); Lymphocytes % (Auto) 12.6 % (13.4-35.0); Mean Corpuscular HGB Conc 34 % (30-34); Mean Corpuscular Volume 92 fl (79-97); Monocytes # (Auto) 0.8 K/mm3 (0.0-0.8); Monocytes % (Auto) 10.1 % (0.0-7.3); Platelet Count 253 K/mm3 (140-440); Red Blood Count 3.79 M/mm3 (3.65-5.03); Red Cell Distribution Width 14.2 % (13.2-15.2)
[2020-05-02] MEDS ORDERED: MORPHINE 4 MG/1 ML INJ IV ONE (11:37)
[2020-05-02] MEDS ORDERED: ONDANSETRON 4 MG/2 ML INJ IV ONE (11:37)
[2020-05-02] MEDS ORDERED: DICYCLOMINE 20 MG/2 ML INJ IM ONE (11:37)
[2020-05-02] MEDS ORDERED: FAMOTIDINE 20 MG/2 ML INJ IV ONE (11:37)
[2020-05-02] MEDS ORDERED: KETOROLAC 30 MG/1 ML INJ IV ONE (11:38)
[2020-05-02 11:39] LABS: Alanine Aminotransferase 8 units/L (7-56); Albumin 4.1 g/dL (3.9-5); Blood Urea Nitrogen 12 mg/dL (7-17); Calcium 9.1 mg/dL (8.4-10.2); Hemolysis Index 59
[2020-05-02 11:41] LABS: BUN/Creatinine Ratio 20
--- NOTE | 2020-05-02 11:57 | Emergency Department Report ---
ED Abdominal Pain HPI - General Chief Complaint: Abdominal Pain Stated Complaint: ABD PAIN Time Seen by Provider: 05/02/20 10:31 Source: patient, EMS Mode of arrival: Stretcher Limitations: Physical Limitation - History of Present Illness Initial Comments: Patient is a 69-year-old female with a past medical history of COPD, on home oxygen, history of pulmonary embolism, hepatitis C, liver cirrhosis, osteoarthritis, tobacco abuse, reported vascular dementia, admitted to this hospital in the past for right femur fracture, which was addressed by orthopedics. Patient is presenting today with right upper quadrant pain which started last night. States she has been nauseous but had no episodes of vomiting. She denies diarrhea. States she has a chronic cough which is no worse with secondary to her COPD. She denies fevers chills. Patient denies any trauma. Patient states the pain is 8 out of 10 in severity and is worse with certain movements but is also random. She states that sometimes it feels as though something is stabbing her. - Related Data Home Medications Medication Instructions Recorded Confirmed Last Taken ALBUTEROL NEB's [Proventil 0.083% 2.5 mg IH QID PRN 03/11/19 09/23/19 Unknown NEBS] Apixaban [Eliquis] 5 mg PO BID 03/11/19 09/23/19 Unknown Omeprazole 20 mg PO QDAY 03/11/19 09/23/19 Unknown donepeziL [Aricept] 5 mg PO QHS 03/11/19 09/23/19 Unknown Previous Rx's Medication Instructions Recorded Last Taken Type Quetiapine Fumarate [SEROquel] 400 mg PO HS #30 tablet 10/08/17 Unknown Rx PARoxetine HCL [PARoxetine] 40 mg PO QDAY #30 tablet 03/16/19 Unknown Rx guaiFENesin [Robitussin] 200 mg PO Q6H PRN tablet 03/16/19 Unknown Rx Apixaban [Eliquis] 5 mg PO BID #60 tablet 03/19/19 Unknown Rx PARoxetine [Paxil] 40 mg PO QDAY #30 tablet 03/19/19 Unknown Rx Propranolol LA [Inderal LA] 60 mg PO QDAY #30 capsule 03/19/19 Unknown Rx QUEtiapine [SEROquel] 400 mg PO HS #30 tablet 03/19/19 Unknown Rx Simvastatin 20 mg PO HS #30 tablet 03/19/19 Unknown Rx donepeziL [Aricept] 5 mg PO QHS #30 tablet 03/19/19 Unknown Rx Docusate Sodium [Colace] 100 mg PO BID PRN #60 capsule 06/20/19 Unknown Rx Lactulose 10 gm PO DAILY PRN #150 ml 06/20/19 Unknown Rx Ondansetron [Zofran Odt] 4 mg PO Q8HR PRN #14 tab.rapdis 07/12/19 Unknown Rx Prednisone [predniSONE 10 mg 10 mg PO .TAPER #1 tab.ds.pk 09/25/19 Unknown Rx (6-Day Pack, 21 Tabs)] Albuterol Mdi (or & Nicu Only) 2 puff IH Q4HR PRN #1 inhalation 11/05/19 Unknown Rx [ProAir HFA Inhaler] predniSONE [Deltasone] 20 mg PO DAILY #15 tablet 11/05/19 Unknown Rx Famotidine [Pepcid] 20 mg PO BID #30 tablet 12/06/19 Unknown Rx Ondansetron [Zofran Odt] 4 mg PO Q8HR PRN #20 tab.rapdis 12/06/19 Unknown Rx predniSONE [Deltasone] 50 mg PO QDAY #5 tab 02/28/20 Unknown Rx traMADoL [Ultram] 50 mg PO Q6HR PRN #7 tablet 02/28/20 Unknown Rx predniSONE [Deltasone] 20 mg PO QDAY #5 tab 05/02/20 Unknown Rx traMADoL [Ultram] 50 mg PO Q6HR PRN #10 tablet 05/02/20 Unknown Rx Allergies Allergy/AdvReac Type Severity Reaction Status Date / Time Iodinated Contrast Media Allergy Itching Verified 01/09/19 17:24 [Iodinated Contrast Media - IV Dye] ivp dye Allergy Itching Uncoded 10/05/17 08:23 ED Review of Systems ROS: Stated complaint: ABD PAIN Other details as noted in HPI Comment: All other systems reviewed and negative ED Past Medical Hx - Past Medical History Hx Hypertension: Yes Hx GERD: Yes Hx Liver Disease: Yes (HEP C, cirrohsis) Hx Arthritis: Yes Hx Psychiatric Treatment: Yes (depression) Hx COPD: Yes (oxygen dependent) Hx Dementia: Yes Additional medical history: osteoporosis, sleep apnea/cpap @ night, Home O2-3L, emphysema - Surgical History Hx Cholecystectomy: Yes Additional Surgical History: thyroid surg t&a, right leg - Social History Smoking Status: Unknown if ever smoked - Medications Home Medications: Home Medications Medication Instructions Recorded Confirmed Last Taken Type Quetiapine Fumarate [SEROquel] 400 mg PO HS #30 tablet 10/08/17 09/23/19 Unknown Rx ALBUTEROL NEB's [Proventil 0.083% 2.5 mg IH QID PRN 03/11/19 09/23/19 Unknown History NEBS] Apixaban [Eliquis] 5 mg PO BID 03/11/19 09/23/19 Unknown History Omeprazole 20 mg PO QDAY 03/11/19 09/23/19 Unknown History donepeziL [Aricept] 5 mg PO QHS 03/11/19 09/23/19 Unknown History PARoxetine HCL [PARoxetine] 40 mg PO QDAY #30 tablet 03/16/19 09/23/19 Unknown Rx guaiFENesin [Robitussin] 200 mg PO Q6H PRN tablet 03/16/19 09/23/19 Unknown Rx Apixaban [Eliquis] 5 mg PO BID #60 tablet 03/19/19 09/23/19 Unknown Rx PARoxetine [Paxil] 40 mg PO QDAY #30 tablet 03/19/19 09/23/19 Unknown Rx Propranolol LA [Inderal LA] 60 mg PO QDAY #30 capsule 03/19/19 09/23/19 Unknown Rx QUEtiapine [SEROquel] 400 mg PO HS #30 tablet 03/19/19 09/23/19 Unknown Rx Simvastatin 20 mg PO HS #30 tablet 03/19/19 09/23/19 Unknown Rx donepeziL [Aricept] 5 mg PO QHS #30 tablet 03/19/19 09/23/19 Unknown Rx Docusate Sodium [Colace] 100 mg PO BID PRN #60 capsule 06/20/19 09/23/19 Unknown Rx Lactulose 10 gm PO DAILY PRN #150 ml 06/20/19 09/23/19 Unknown Rx Ondansetron [Zofran Odt] 4 mg PO Q8HR PRN #14 tab.rapdis 07/12/19 09/23/19 Unk nown Rx Prednisone [predniSONE 10 mg 10 mg PO .TAPER #1 tab.ds.pk 09/25/19 Unknown Rx (6-Day Pack, 21 Tabs)] Albuterol Mdi (or & Nicu Only) 2 puff IH Q4HR PRN #1 inhalation 11/05/19 Unknow n Rx [ProAir HFA Inhaler] predniSONE [Deltasone] 20 mg PO DAILY #15 tablet 11/05/19 Unknown Rx Famotidine [Pepcid] 20 mg PO BID #30 tablet 12/06/19 Unknown Rx Ondansetron [Zofran Odt] 4 mg PO Q8HR PRN #20 tab.rapdis 12/06/19 Unknown Rx predniSONE [Deltasone] 50 mg PO QDAY #5 tab 02/28/20 Unknown Rx traMADoL [Ultram] 50 mg PO Q6HR PRN #7 tablet 02/28/20 Unknown Rx predniSONE [Deltasone] 20 mg PO QDAY #5 tab 05/02/20 Unknown Rx traMADoL [Ultram] 50 mg PO Q6HR PRN #10 tablet 05/02/20 Unknown Rx ED Physical Exam - General Limitations: Physical Limitation General appearance: alert, in no apparent distress - Head Head exam: Present: atraumatic, normocephalic - Eye Eye exam: Present: normal appearance, PERRL, EOMI - ENT ENT exam: Present: normal orophraynx, mucous membranes moist - Neck Neck exam: Present: normal inspection - Respiratory Respiratory exam: Present: normal lung sounds bilaterally. Absent: respiratory distress, wheezes, rales, rhonchi, stridor - Cardiovascular Cardiovascular Exam: Present: regular rate, normal rhythm, normal heart sounds. Absent: systolic murmur, diastolic murmur, rubs, gallop - GI/Abdominal GI/Abdominal exam: Present: soft, tenderness (Right upper quadrant pain with voluntary guarding), guarding, normal bowel sounds. Absent: distended, rebound, rigid - Extremities Exam Extremities exam: Present: normal inspection - Back Exam Back exam: Present: normal inspection - Neurological Exam Neurological exam: Present: alert, oriented X3 - Psychiatric Psychiatric exam: Present: normal affect, normal mood - Skin Skin exam: Present: warm, dry, intact, normal color. Absent: rash ED Course Vital Signs 05/02/20 10:36 Temperature 98 F Pulse Rate 107 H Respiratory 18 Rate Blood Pressure 150/64 [Right] O2 Sat by Pulse 95 Oximetry ED Medical Decision Making - Lab Data Result diagrams: 05/02/20 10:26 05/02/20 10:26 Lab Results 05/02/20 05/02/20 05/02/20 Range/Units 10:26 10:26 10:26 WBC 8.0 (4.5-11.0) K/mm3 RBC 3.79 (3.65-5.03) M/mm3 Hgb 11.7 (10.1-14.3) gm/dl Hct 34.7 (30.3-42.9) % MCV 92 (79-97) fl MCH 31 (28-32) pg MCHC 34 (30-34) % RDW 14.2 (13.2-15.2) % Plt Count 253 (140-440) K/mm3 Lymph % (Auto) 12.6 L (13.4-35.0) % [place] % (Auto) 10.1 H (0.0-7.3) % Eos % (Auto) 1.4 (0.0-4.3) % Baso % (Auto) 0.9 (0.0-1.8) % Lymph # 1.0 L (1.2-5.4) K/mm3 [place] # 0.8 (0.0-0.8) K/mm3 Eos # 0.1 (0.0-0.4) K/mm3 Baso # 0.1 (0.0-0.1) K/mm3 Seg Neutrophils % 75.0 H (40.0-70.0) % Seg Neutrophils # 6.0 (1.8-7.7) K/mm3 Sodium 133 L (137-145) mmol/L Potassium 4.3 (3.6-5.0) mmol/L Chloride 98.2 (98-107) mmol/L Carbon Dioxide 20 L (22-30) mmol/L Anion Gap 19 mmol/L BUN 12 (7-17) mg/dL Creatinine 0.6 (0.6-1.2) mg/dL Estimated GFR > 60 ml/min BUN/Creatinine Ratio 20 % Glucose 88 (65-100) mg/dL Calcium 9.1 (8.4-10.2) mg/dL Total Bilirubin 0.60 (0.1-1.2) mg/dL AST 17 (5-40) units/L ALT 8 (7-56) units/L Alkaline Phosphatase 113 (35-129) units/L Total Protein 7.9 (6.3-8.2) g/dL Albumin 4.1 (3.9-5) g/dL Albumin/Globulin Ratio 1.1 % Lipase 16 (13-60) units/L Urine Color (Yellow) Urine Turbidity (Clear) Urine pH (5.0-7.0) Ur Specific [place] (1.003-1.030) Urine Protein (Negative) mg/dL Urine Glucose (UA) (Negative) mg/dL Urine Ketones (Negative) mg/dL Urine Blood (Negative) Urine Nitrite (Negative) Urine Bilirubin (Negative) Urine Urobilinogen (<2.0) mg/dL Ur Leukocyte Esterase (Negative) Urine WBC (Auto) (0.0-6.0) /HPF Urine RBC (Auto) (0.0-6.0) /HPF U Epithel Cells (Auto) (0-13.0) /HPF Urine Mucus /HPF 08/18/20 Range/Units 11:13 WBC (4.5-11.0) K/mm3 RBC (3.65-5.03) M/mm3 Hgb (10.1-14.3) gm/dl Hct (30.3-42.9) % MCV (79-97) fl MCH (28-32) pg MCHC (30-34) % RDW (13.2-15.2) % Plt Count (140-440) K/mm3 Lymph % (Auto) (13.4-35.0) % [place] % (Auto) (0.0-7.3) % Eos % (Auto) (0.0-4.3) % Baso % (Auto) (0.0-1.8) % Lymph # (1.2-5.4) K/mm3 [place] # (0.0-0.8) K/mm3 Eos # (0.0-0.4) K/mm3 Baso # (0.0-0.1) K/mm3 Seg Neutrophils % (40.0-70.0) % Seg Neutrophils # (1.8-7.7) K/mm3 Sodium (137-145) mmol/L Potassium (3.6-5.0) mmol/L Chloride (98-107) mmol/L Carbon Dioxide (22-30) mmol/L Anion Gap mmol/L BUN (7-17) mg/dL Creatinine (0.6-1.2) mg/dL Estimated GFR ml/min BUN/Creatinine Ratio % Glucose (65-100) mg/dL Calcium (8.4-10.2) mg/dL Total Bilirubin (0.1-1.2) mg/dL AST (5-40) units/L ALT (7-56) units/L Alkaline Phosphatase (35-129) units/L Total Protein (6.3-8.2) g/dL Albumin (3.9-5) g/dL Albumin/Globulin Ratio % Lipase (13-60) units/L Urine Color Yellow (Yellow) Urine Turbidity Clear (Clear) Urine pH 6.0 (5.0-7.0) Ur Specific [place] 1.017 (1.003-1.030) Urine Protein <15 mg/dl (Negative) mg/dL Urine Glucose (UA) Neg (Negative) mg/dL Urine Ketones Neg (Negative) mg/dL Urine Blood Sm (Negative) Urine Nitrite Neg (Negative) Urine Bilirubin Neg (Negative) Urine Urobilinogen < 2.0 (<2.0) mg/dL Ur Leukocyte Esterase Neg (Negative) Urine WBC (Auto) 3.0 (0.0-6.0) /HPF Urine RBC (Auto) 3.0 (0.0-6.0) /HPF U Epithel Cells (Auto) 1.0 (0-13.0) /HPF Urine Mucus Few /HPF - Radiology Data [facility] [address] [place] [address] Ultrasound Report Signed Patient: RADHA NETTLES MR#: [id number] : 1950 Acct:[id number] Age/Sex: 69 / F ADM Date: 05/02/20 Loc: ED Attending Dr: Ordering Physician: DAVID MORALES MD Date of Service: 05/02/20 Procedure(s): US abdomen limited Accession Number(s): [id number] cc: DAVID MORALES MD ULTRASOUND ABDOMEN, LIMITED (RIGHT UPPER QUADRANT) INDICATION / CLINICAL INFORMATION: RUQ pain. COMPARISON: CT abdomen and pelvis dated 12/06/2019. FINDINGS: PANCREAS: Visualized portion shows no significant abnormality. LIVER: The liver measures 18.3 cm in length and is normal in echogenicity. GALLBLADDER: Surgically absent. BILE DUCTS: No significant abnormality. Common bile duct measures 3 mm. RIGHT KIDNEY: The right kidney measures 10.3 cm in length and is normal in echogenicity. FREE FLUID: None. ADDITIONAL FINDINGS: None. IMPRESSION: No significant sonographic abnormality of the right upper quadrant. The gallbladder is surgically absent. Signer Name: Tomas Bauer MD Signed: 05/02/2020 12:41 PM Workstation Name: [id number] [facility] [address] [place] [address] Cat Scan Report Signed Patient: RADHA NETTLES MR#: [id number] : 1950 Acct:[id number] Age/Sex: 69 / F ADM Date: 05/02/20 Loc: ED Attending Dr: Ordering Physician: DAVID MORALES MD Date of Service: 05/02/20 Procedure(s): CT abdomen pelvis wo con Accession Number(s): [id number] cc: DAVID MORALES MD CT ABDOMEN AND PELVIS WITHOUT CONTRAST INDICATION / CLINICAL INFORMATION: RUQ pain. TECHNIQUE: Axial CT images were obtained through the abdomen and pelvis without IV contrast. All CT scans at this location are performed using CT dose reduction for ALARA by means of automated exposure control. COMPARISON: CT abdomen and pelvis without contrast from 12/06/2019. FINDINGS: LOWER CHEST: Stable chronic interstitial disease along the lung bases with a stable right middle lobe nodule. Extensive coronary atherosclerosis is again seen with a small hiatal hernia. Stable probable cyst within the subcutaneous tissues of the right mid back measuring 2.5 cm on image 22 of series 2. No additional significant abnormality. LIVER: Similarly cirrhotic with stable cysts and no additional significant abnormalities. GALLBLADDER: Surgically absent. BILE DUCTS: No significant abnormality. PANCREAS: No significant abnormality. SPLEEN: No significant abnormality. ADRENALS: Stable calcification of the right adrenal gland. No additional significant abnormality. RIGHT KIDNEY / URETER: No significant abnormality. LEFT KIDNEY / URETER: No significant abnormality. STOMACH / SMALL BOWEL: No additional significant abnormality of the stomach. No significant abnormality of the small bowel. COLON: No significant abnormality. APPENDIX: No significant abnormality. PERITONEUM: No free fluid. No free air. No fluid collection. LYMPH NODES: No significant adenopathy. AORTA / ARTERIES: Similar moderate generalized atherosclerosis. IVC / VEINS: Stable IVC filter. URINARY BLADDER: No significant abnormality. REPRODUCTIVE ORGANS: No significant abnormality. ADDITIONAL FINDINGS: None. SKELETAL SYSTEM: No acute abnormality or significant change. IMPRESSION: 1. No acute abnormality of the abdomen or pelvis. 2. No significant interval change compared to the prior CT from 12/06/2019. Signer Name: Ravi Suero MD Signed: 05/02/2020 1:35 PM Workstation Name: [id number] - Medical Decision Making No obvious pathology was found in the right upper quadrant or right lower lungs that would explain the patient's symptoms. Did not entertain pulmonary embolus as the patient is on Eliquis. Patient likely with pleuritic discomfort in the lower lung secondary to her chronic cough from her COPD. Patient be discharged home. Critical care attestation.: If time is entered above; I have spent that time in minutes in the direct care of this critically ill patient, excluding procedure time. ED Disposition Clinical Impression: Pleurisy, Chronic bronchitis Disposition: DC-01 TO HOME OR SELFCARE Is pt being admited?: No Does the pt Need Aspirin: No Condition: Stable Instructions: Chronic Bronchitis (ED), Pleurisy (ED) Referrals: PRIMARY CARE, [Primary Care Provider] - 3-5 Days Time of Disposition: 14:20
--- NOTE | 2020-05-02 12:46 | Ultrasound Report ---
ULTRASOUND ABDOMEN, LIMITED (RIGHT UPPER QUADRANT) INDICATION / CLINICAL INFORMATION: RUQ pain. COMPARISON: CT abdomen and pelvis dated 12/06/2019. FINDINGS: PANCREAS: Visualized portion shows no significant abnormality. LIVER: The liver measures 18.3 cm in length and is normal in echogenicity. GALLBLADDER: Surgically absent. BILE DUCTS: No significant abnormality. Common bile duct measures 3 mm. RIGHT KIDNEY: The right kidney measures 10.3 cm in length and is normal in echogenicity. FREE FLUID: None. ADDITIONAL FINDINGS: None. IMPRESSION: No significant sonographic abnormality of the right upper quadrant. The gallbladder is surgically abs ent. Signer Name: Tomas Bauer MD Signed: 05/02/2020 12:41 PM Workstation Name: [id number]
--- NOTE | 2020-05-02 13:40 | Cat Scan Report ---
CT ABDOMEN AND PELVIS WITHOUT CONTRAST INDICATION / CLINICAL INFORMATION: RUQ pain. TECHNIQUE: Axial CT images were obtained through the abdomen and pelvis without IV contrast. All CT scans at [facility] location are performed using CT dose reduction for ALARA by means of automated exposure control. COMPARISON: CT abdomen and pelvis without contrast from 12/06/2019. FINDINGS: LOWER CHEST: Stable chronic interstitial disease along the lung bases with a stable right middle lobe nodule. Extensive coronary atherosclerosis is again seen with a small hiatal hernia. Stable probable cyst within the subcutaneous tissues of the right mid back measuring 2.5 cm on image 22 of series 2. No additional significant abnormality. LIVER: Similarly cirrhotic with stable cysts and no additional significant abnormalities. GALLBLADDER: Surgically absent. BILE DUCTS: No significant abnormality. PANCREAS: No significant abnormality. SPLEEN: No significant abnormality. ADRENALS: Stable calcification of the right adrenal gland. No additional significant abnormality. RIGHT KIDNEY / URETER: No significant abnormality. LEFT KIDNEY / URETER: No significant abnormality. STOMACH / SMALL BOWEL: No additional significant abnormality of the stomach. No significant abnormali ty of the small bowel. COLON: No significant abnormality. APPENDIX: No significant abnormality. PERITONEUM: No free fluid. No free air. No fluid collection. LYMPH NODES: No significant adenopathy. AORTA / ARTERIES: Similar moderate generalized atherosclerosis. IVC / VEINS: Stable IVC filter. URINARY BLADDER: No significant abnormality. REPRODUCTIVE ORGANS: No significant abnormality. ADDITIONAL FINDINGS: None. SKELETAL SYSTEM: No acute abnormality or significant change. IMPRESSION: 1. No acute abnormality of the abdomen or pelvis. 2. No significant interval change compared to the prior CT from 12/06/2019. Signer Name: Ravi Suero MD Signed: 05/02/2020 1:35 PM Workstation Name: [id number]
== END 2020-05-02 14:52 | disposition home or self-care (01) ==
LOC: ED 10:08
DX: R09.1 Pleurisy (principal); J42 Unspecified chronic bronchitis; I10 Essential (primary) hypertension; K21.9 Gastro-esophageal reflux disease without esophagitis; M19.91 Primary osteoarthritis, unspecified site; F32.9 Major depressive disorder, single episode, unspecified; F03.90 Unspecified dementia, unspecified severity, without behavioral disturbance, psychotic disturbance, mood disturbance, and anxiety; Z90.49 Acquired absence of other specified parts of digestive tract; Z98.890 Other specified postprocedural states; Z79.899 Other long term (current) drug therapy; Z88.8 Allergy status to other drugs, medicaments and biological substances
CPT/HCPCS: 36415; 74176; 76705; 80053; 81001; 83690; 85025; 96372; 96374; 96375; 99284; J0500; J1885; J2270; J2405

== ENCOUNTER 2020-05-06 14:58 | Inpatient (IN) | payer MEDICARE ==
[2020-05-06] MEDS ORDERED: methylPREDNISolone Sod Succinate 125 MG/2 ML INJ IV ONE (15:32)
[2020-05-06] MEDS ORDERED: FAMOTIDINE 20 MG/2 ML INJ IV ONE (15:32)
[2020-05-06] MEDS ORDERED: MORPHINE 4 MG/1 ML INJ IV ONE (15:33)
[2020-05-06] MEDS ORDERED: ONDANSETRON 4 MG/2 ML INJ IV ONE (15:33)
[2020-05-06] MEDS ORDERED: IPRATROPIUM/ALBUTEROL SULFATE 3 ML AMPUL.NEB IH ONE ×2 (15:34→21:02)
--- NOTE | 2020-05-06 15:52 | Emergency Department Report ---
ED Abdominal Pain HPI - General Chief Complaint: Abdominal Pain Stated Complaint: CP/SOB Time Seen by Provider: 05/06/20 15:24 Source: patient Mode of arrival: Wheelchair Limitations: No Limitations - History of Present Illness Initial Comments: 69-year female the past medical history of dementia, COPD with 2 to 3 L home oxygen use, GERD, hypertension, hepatitis C, cirrhosis, depression, sleep apnea, and previous cholecystectomy presents to the hospital complaining of abdominal pain, back pain, nausea, vomiting, shortness of breath for the last 2 to 3 days. Patient was seen here on the with similar pain and had a unremarkable ED work-up and CT abdomen pelvis at that time and was discharged on tramadol. No complaints of fever. - Related Data Home Medications Medication Instructions Recorded Confirmed Last Taken ALBUTEROL NEB's [Proventil 0.083% 2.5 mg IH QID PRN 03/11/19 09/23/19 Unknown NEBS] Apixaban [Eliquis] 5 mg PO BID 03/11/19 09/23/19 Unknown Omeprazole 20 mg PO QDAY 03/11/19 09/23/19 Unknown donepeziL [Aricept] 5 mg PO QHS 03/11/19 09/23/19 Unknown Previous Rx's Medication Instructions Recorded Last Taken Type Quetiapine Fumarate [SEROquel] 400 mg PO HS #30 tablet 10/08/17 Unknown Rx PARoxetine HCL [PARoxetine] 40 mg PO QDAY #30 tablet 03/16/19 Unknown Rx guaiFENesin [Robitussin] 200 mg PO Q6H PRN tablet 03/16/19 Unknown Rx Apixaban [Eliquis] 5 mg PO BID #60 tablet 03/19/19 Unknown Rx PARoxetine [Paxil] 40 mg PO QDAY #30 tablet 03/19/19 Unknown Rx Propranolol LA [Inderal LA] 60 mg PO QDAY #30 capsule 03/19/19 Unknown Rx QUEtiapine [SEROquel] 400 mg PO HS #30 tablet 03/19/19 Unknown Rx Simvastatin 20 mg PO HS #30 tablet 03/19/19 Unknown Rx donepeziL [Aricept] 5 mg PO QHS #30 tablet 03/19/19 Unknown Rx Docusate Sodium [Colace] 100 mg PO BID PRN #60 capsule 06/20/19 Unknown Rx Lactulose 10 gm PO DAILY PRN #150 ml 06/20/19 Unknown Rx Ondansetron [Zofran Odt] 4 mg PO Q8HR PRN #14 tab.rapdis 07/12/19 Unknown Rx Prednisone [predniSONE 10 mg 10 mg PO .TAPER #1 tab.ds.pk 09/25/19 Unknown Rx (6-Day Pack, 21 Tabs)] Albuterol Mdi (or & Nicu Only) 2 puff IH Q4HR PRN #1 inhalation 11/05/19 Unknown Rx [ProAir HFA Inhaler] predniSONE [Deltasone] 20 mg PO DAILY #15 tablet 11/05/19 Unknown Rx Famotidine [Pepcid] 20 mg PO BID #30 tablet 12/06/19 Unknown Rx Ondansetron [Zofran Odt] 4 mg PO Q8HR PRN #20 tab.rapdis 12/06/19 Unknown Rx predniSONE [Deltasone] 50 mg PO QDAY #5 tab 02/28/20 Unknown Rx traMADoL [Ultram] 50 mg PO Q6HR PRN #7 tablet 02/28/20 Unknown Rx predniSONE [Deltasone] 20 mg PO QDAY #5 tab 05/02/20 Unknown Rx traMADoL [Ultram] 50 mg PO Q6HR PRN #10 tablet 05/02/20 Unknown Rx Allergies Allergy/AdvReac Type Severity Reaction Status Date / Time Iodinated Contrast Media Allergy Itching Verified 01/09/19 17:24 [Iodinated Contrast Media - IV Dye] ivp dye Allergy Itching Uncoded 10/05/17 08:23 ED Review of Systems ROS: Stated complaint: CP/SOB Other details as noted in HPI Comment: All other systems reviewed and negative ED Past Medical Hx - Past Medical History Previous Medical History?: Yes Hx Hypertension: Yes Hx GERD: Yes Hx Liver Disease: Yes (HEP C, cirrohsis) Hx Arthritis: Yes Hx Psychiatric Treatment: Yes (depression) Hx COPD: Yes (oxygen dependent) Hx Dementia: Yes Additional medical history: osteoporosis, sleep apnea/cpap @ night, Home O2-3L, emphysema - Surgical History Past Surgical History?: Yes Hx Cholecystectomy: Yes Additional Surgical History: thyroid surg t&a, right leg - Social History Smoking Status: Unknown if ever smoked - Medications Home Medications: Home Medications Medication Instructions Recorded Confirmed Last Taken Type Quetiapine Fumarate [SEROquel] 400 mg PO HS #30 tablet 10/08/17 09/23/19 Unknown Rx ALBUTEROL NEB's [Proventil 0.083% 2.5 mg IH QID PRN 03/11/19 09/23/19 Unknown History NEBS] Apixaban [Eliquis] 5 mg PO BID 03/11/19 09/23/19 Unknown History Omeprazole 20 mg PO QDAY 03/11/19 09/23/19 Unknown History donepeziL [Aricept] 5 mg PO QHS 03/11/19 09/23/19 Unknown History PARoxetine HCL [PARoxetine] 40 mg PO QDAY #30 tablet 03/16/19 09/23/19 Unknown Rx guaiFENesin [Robitussin] 200 mg PO Q6H PRN tablet 03/16/19 09/23/19 Unknown Rx Apixaban [Eliquis] 5 mg PO BID #60 tablet 03/19/19 09/23/19 Unknown Rx PARoxetine [Paxil] 40 mg PO QDAY #30 tablet 03/19/19 09/23/19 Unknown Rx Propranolol LA [Inderal LA] 60 mg PO QDAY #30 capsule 03/19/19 09/23/19 Unknown Rx QUEtiapine [SEROquel] 400 mg PO HS #30 tablet 03/19/19 09/23/19 Unknown Rx Simvastatin 20 mg PO HS #30 tablet 03/19/19 09/23/19 Unknown Rx donepeziL [Aricept] 5 mg PO QHS #30 tablet 03/19/19 09/23/19 Unknown Rx Docusate Sodium [Colace] 100 mg PO BID PRN #60 capsule 06/20/19 09/23/19 Unknown Rx Lactulose 10 gm PO DAILY PRN #150 ml 06/20/19 09/23/19 Unknown Rx Ondansetron [Zofran Odt] 4 mg PO Q8HR PRN #14 tab.rapdis 07/12/19 09/23/19 Unknown Rx Prednisone [predniSONE 10 mg 10 mg PO .TAPER #1 tab.ds.pk 09/25/19 Unknown Rx (6-Day Pack, 21 Tabs)] Albuterol Mdi (or & Nicu Only) 2 puff IH Q4HR PRN #1 inhalation 11/05/19 Unknown Rx [ProAir HFA Inhaler] predniSONE [Deltasone] 20 mg PO DAILY #15 tablet 11/05/19 Unknown Rx Famotidine [Pepcid] 20 mg PO BID #30 tablet 12/06/19 Unknown Rx Ondansetron [Zofran Odt] 4 mg PO Q8HR PRN #20 tab.rapdis 12/06/19 Unknown Rx predniSONE [Deltasone] 50 mg PO QDAY #5 tab 02/28/20 Unknown Rx traMADoL [Ultram] 50 mg PO Q6HR PRN #7 tablet 02/28/20 Unknown Rx predniSONE [Deltasone] 20 mg PO QDAY #5 tab 05/02/20 Unknown Rx traMADoL [Ultram] 50 mg PO Q6HR PRN #10 tablet 05/02/20 Unknown Rx ED Physical Exam - General Limitations: No Limitations - Other Other exam information: General: No acute distress Head: Atraumatic Eyes: normal appearance ENT: Moist mucous membranes Neck: Normal appearance, no midline tenderness Chest: Mild wheezing without accessory muscle CV: Regular rate and rhythm Abdomen: Soft, normal bowel sounds, generalized tenderness greatest in the upper abdomen, nondistended, no rebound or guarding Back: Normal inspection Extremity: Normal inspection, full range of motion Neuro: Alert O x 3, no facial asymmetry, speech clear, no gross motor sensory deficit Psych: Appropriate behavior Skin: No rash ED Course Vital Signs 05/06/20 05/06/20 05/06/20 15:13 15:17 16:52 Temperature 98.3 F 100.3 F H Pulse Rate 95 H Respiratory 26 H Rate Blood Pressure 65/48 Blood Pressure 126/70 [Right] O2 Sat by Pulse 94 Oximetry 05/06/20 16:53 Temperature Pulse Rate 81 Respiratory 20 Rate Blood Pressure Blood Pressure 128/48 [Right] O2 Sat by Pulse 98 Oximetry ED Medical Decision Making - Lab Data Result diagrams: 05/06/20 15:54 05/06/20 15:54 Lab Results 05/06/20 05/06/20 05/06/20 Range/Units 15:54 15:54 15:54 WBC 14.2 H (4.5-11.0) K/mm3 RBC 3.39 L (3.65-5.03) M/mm3 Hgb 10.4 (10.1-14.3) gm/dl Hct 30.4 (30.3-42.9) % MCV 90 (79-97) fl MCH 31 (28-32) pg MCHC 34 (30-34) % RDW 14.4 (13.2-15.2) % Plt Count 238 (140-440) K/mm3 Add Manual Diff Complete Total Counted 100 Seg Neuts % (Manual) 74.0 H (40.0-70.0) % Band Neutrophils % 11.0 % Lymphocytes % (Manual) 8.0 L (13.4-35.0) % Reactive Lymphs % (Man) 0 % Monocytes % (Manual) 6.0 (0.0-7.3) % Eosinophils % (Manual) 0 (0.0-4.3) % Basophils % (Manual) 0 (0.0-1.8) % Metamyelocytes % 0 % Myelocytes % 1.0 % Promyelocytes % 0 % Blast Cells % 0 % Nucleated RBC % Not Reportable Seg Neutrophils # Man 10.5 H (1.8-7.7) K/mm3 Band Neutrophils # 1.6 K/mm3 Lymphocytes # (Manual) 1.1 L (1.2-5.4) K/mm3 Abs React Lymphs (Man) 0.0 K/mm3 Monocytes # (Manual) 0.9 H (0.0-0.8) K/mm3 Eosinophils # (Manual) 0.0 (0.0-0.4) K/mm3 Basophils # (Manual) 0.0 (0.0-0.1) K/mm3 Metamyelocytes # 0.0 K/mm3 Myelocytes # 0.1 K/mm3 Promyelocytes # 0.0 K/mm3 Blast Cells # 0.0 K/mm3 WBC Morphology Not Reportable Hypersegmented Neuts Not Reportable Hyposegmented Neuts Not Reportable Hypogranular Neuts Not Reportable Smudge Cells Not Reportable Toxic Granulation Not Reportable Toxic Vacuolation Not Reportable Dohle Bodies Not Reportable Pelger-Huet Anomaly Not Reportable Dianne Rods Not Reportable Platelet Estimate Consistent w auto Clumped Platelets Not Reportable Plt Clumps, EDTA Not Reportable Large Platelets Rare Giant Platelets Not Reportable Platelet Satelliting Not Reportable Plt Morphology Comment Not Reportable RBC Morphology Not Reportable Dimorphic RBCs Not Reportable Polychromasia Not Reportable Hypochromasia 1+ Poikilocytosis Not Reportable Anisocytosis Not Reportable Microcytosis Not Reportable Macrocytosis Not Reportable Spherocytes Not Reportable Pappenheimer Bodies Not Reportable Sickle Cells Not Reportable Target Cells Not Reportable Tear Drop Cells Not Reportable Ovalocytes Not Reportable Helmet Cells Not Reportable Villa-Platinum Bodies Not Reportable [place] Rings Not Reportable Raj Cells Not Reportable Bite Cells Not Reportable Crenated Cell Not Reportable Elliptocytes Not Reportable Acanthocytes (Spur) Not Reportable Rouleaux Not Reportable Hemoglobin C Crystals Not Reportable Schistocytes Not Reportable Malaria parasites Not Reportable Rah Bodies Not Reportable Hem Pathologist Commnt No PT 15.4 H (12.2-14.9) Sec. INR 1.19 H (0.87-1.13) APTT 25.4 (24.2-36.6) Sec. Sodium 132 L (137-145) mmol/L Potassium 3.4 L D (3.6-5.0) mmol/L Chloride 91.8 L (98-107) mmol/L Carbon Dioxide 24 (22-30) mmol/L Anion Gap 20 mmol/L BUN 22 H (7-17) mg/dL Creatinine 0.6 (0.6-1.2) mg/dL Estimated GFR > 60 ml/min BUN/Creatinine Ratio 37 % Glucose 133 H (65-100) mg/dL Calcium 9.0 (8.4-10.2) mg/dL Total Bilirubin 2.20 H (0.1-1.2) mg/dL AST 38 (5-40) units/L ALT 31 (7-56) units/L Alkaline Phosphatase 92 (35-129) units/L Total Protein 7.5 (6.3-8.2) g/dL Albumin 3.3 L (3.9-5) g/dL Albumin/Globulin Ratio 0.8 % Lipase 10 L (13-60) units/L Urine Color (Yellow) Urine Turbidity (Clear) Urine pH (5.0-7.0) Ur Specific [place] (1.003-1.030) Urine Protein (Negative) mg/dL Urine Glucose (UA) (Negative) mg/dL Urine Ketones (Negative) mg/dL Urine Blood (Negative) Urine Nitrite (Negative) Urine Bilirubin (Negative) Urine Ictotest (Negative) Urine Urobilinogen (<2.0) mg/dL Ur Leukocyte Esterase (Negative) Urine WBC (Auto) (0.0-6.0) /HPF Urine RBC (Auto) (0.0-6.0) /HPF U Epithel Cells (Auto) (0-13.0) /HPF Urine Mucus /HPF 05/06/20 Range/Units Unknown WBC (4.5-11.0) K/mm3 RBC (3.65-5.03) M/mm3 Hgb (10.1-14.3) gm/dl Hct (30.3-42.9) % MCV (79-97) fl MCH (28-32) pg MCHC (30-34) % RDW (13.2-15.2) % Plt Count (140-440) K/mm3 Add Manual Diff Total Counted Seg Neuts % (Manual) (40.0-70.0) % Band Neutrophils % % Lymphocytes % (Manual) (13.4-35.0) % Reactive Lymphs % (Man) % Monocytes % (Manual) (0.0-7.3) % Eosinophils % (Manual) (0.0-4.3) % Basophils % (Manual) (0.0-1.8) % Metamyelocytes % % Myelocytes % % Promyelocytes % % Blast Cells % % Nucleated RBC % Seg Neutrophils # Man (1.8-7.7) K/mm3 Band Neutrophils # K/mm3 Lymphocytes # (Manual) (1.2-5.4) K/mm3 Abs React Lymphs (Man) K/mm3 Monocytes # (Manual) (0.0-0.8) K/mm3 Eosinophils # (Manual) (0.0-0.4) K/mm3 Basophils # (Manual) (0.0-0.1) K/mm3 Metamyelocytes # K/mm3 Myelocytes # K/mm3 Promyelocytes # K/mm3 Blast Cells # K/mm3 WBC Morphology Hypersegmented Neuts Hyposegmented Neuts Hypogranular Neuts Smudge Cells Toxic Granulation Toxic Vacuolation Dohle Bodies Pelger-Huet Anomaly Dianne Rods Platelet Estimate Clumped Platelets Plt Clumps, EDTA Large Platelets Giant Platelets Platelet Satelliting Plt Morphology Comment RBC Morphology Dimorphic RBCs Polychromasia Hypochromasia Poikilocytosis Anisocytosis Microcytosis Macrocytosis Spherocytes Pappenheimer Bodies Sickle Cells Target Cells Tear Drop Cells Ovalocytes Helmet Cells Villa-Platinum Bodies [place] Rings Raj Cells Bite Cells Crenated Cell Elliptocytes Acanthocytes (Spur) Rouleaux Hemoglobin C Crystals Schistocytes Malaria parasites Rah Bodies Hem Pathologist Commnt PT (12.2-14.9) Sec. INR (0.87-1.13) APTT (24.2-36.6) Sec. Sodium (137-145) mmol/L Potassium (3.6-5.0) mmol/L Chloride (98-107) mmol/L Carbon Dioxide (22-30) mmol/L Anion Gap mmol/L BUN (7-17) mg/dL Creatinine (0.6-1.2) mg/dL Estimated GFR ml/min BUN/Creatinine Ratio % Glucose (65-100) mg/dL Calcium (8.4-10.2) mg/dL Total Bilirubin (0.1-1.2) mg/dL AST (5-40) units/L ALT (7-56) units/L Alkaline Phosphatase (35-129) units/L Total Protein (6.3-8.2) g/dL Albumin (3.9-5) g/dL Albumin/Globulin Ratio % Lipase (13-60) units/L Urine Color [place] (Yellow) Urine Turbidity Slightly-cloudy (Clear) Urine pH 5.0 (5.0-7.0) Ur Specific [place] 1.029 (1.003-1.030) Urine Protein >500 (Negative) mg/dL Urine Glucose (UA) Neg (Negative) mg/dL Urine Ketones Neg (Negative) mg/dL Urine Blood Mod (Negative) Urine Nitrite Neg (Negative) Urine Bilirubin Sm (Negative) Urine Ictotest Positive (Negative) Urine Urobilinogen 4.0 (<2.0) mg/dL Ur Leukocyte Esterase Tr (Negative) Urine WBC (Auto) 29.0 H (0.0-6.0) /HPF Urine RBC (Auto) 5.0 (0.0-6.0) /HPF U Epithel Cells (Auto) 3.0 (0-13.0) /HPF Urine Mucus 2+ /HPF - EKG Data -: EKG Interpreted by Ok EKG shows normal: ST-T waves (no stemi) Rate: normal (80) - Radiology Data Radiology results: report reviewed CHEST 1 VIEW INDICATION: sob. COMPARISON: 11/21/2019 FINDINGS: Support devices: None. Heart: Normal. Lungs/Pleura: There are multiple somewhat nodular opacities within both lungs, greater on the right. These are new since the prior. Background interstitial changes are again noted. No significant effusion, no pneumothorax. IMPRESSION: 1. New, patchy nodular opacities in both lungs. These could be inflammatory/infectious in etiology. Neoplastic/metastatic process could have this appearance. CT ABDOMEN AND PELVIS WITHOUT CONTRAST INDICATION / CLINICAL INFORMATION: MAIN. TECHNIQUE: Axial CT images were obtained through the abdomen and pelvis without IV contrast. All CT scans at this location are performed using CT dose reduction for ALARA by means of automated exposure control. COMPARISON: 05/02/2020 FINDINGS: LOWER CHEST: Patchy consolidative opacification in the bilateral bases and small right pleural effusion. Findings are progressed compared to the prior examination. Coronary artery atherosclerotic calcification. HEPATOBILIARY: Small hypodensity in the right hepatic lobe which is too small to characterize, possible cyst. Liver is mildly enlarged. Cholecystectomy status. Stable prominence of the common bile duct without evidence of intrahepatic biliary ductal dilatation. PANCREAS: No significant abnormality. SPLEEN: Mildly enlarged without focal lesion. ADRENALS: No significant abnormality. GENITOURINARY: No significant abnormality. GASTROINTESTINAL/MESENTERY: Thickening and mild inflammatory change involving the second and third portions of the duodenum. Remaining bowel demonstrates Significant stool throughout the colon sugg esting constipation, no bowel obstruction or inflammation. Appendix demonstrates no significant abnormality. No evidence of free air or free fluid. RETROPERITONEUM: No significant adenopathy. REPRODUCTIVE ORGANS: Poorly visualized secondary to artifact from right hip postoperative change. VASCULAR: Significant atherosclerotic calcification of the abdominal aorta and iliac vessels. IVC filter in place below the level of the renal veins. SKELETAL SYSTEM: Postoperative change from right hip arthroplasty. Diffuse degenerative change without acute abnormality. ADDITIONAL FINDINGS: No significant abnormality. IMPRESSION: 1. Mild inflammatory change and thickening of the duodenum concerning for duodenitis. No evidence of perforation. 2. Patchy consolidative opacification in the bilateral bases. Covid 19 could represent in a similar fashion. Consider clinical correlation and laboratory testing, and further follow-up as warranted. 3. Hepatomegaly. 4. Additional findings as above. - Medical Decision Making Patient presents to the hospital with both respiratory and abdominal symptoms. X-ray suggestive of bilateral pneumonia. Patient may repeat URI, respiratory isolation, and COVID order set placed with in-house ID consultation request. Patient treated with Rocephin and azithromycin for community-acquired pneumonia which should also cover UTI. Cultures pending. Patient treated with morphine and Zofran as well as bronchodilators and steroids in the ED. Patient has mild hyponatremia and hypokalemia and received normal saline and p.o. potassium. IV protonix provided duodenitis Critical Care Time: No Critical care attestation.: If time is entered above; I have spent that time in minutes in the direct care of this critically ill patient, excluding procedure time. ED Disposition Clinical Impression: COPD exacerbation, Bilateral pneumonia, On home oxygen therapy, Duodenitis, Hypokalemia, Suspected COVID-19 virus infection Disposition: OP ADMIT IP TO THIS HOSP Is pt being admited?: Yes Condition: Stable Time of Disposition: 18:27
--- NOTE | 2020-05-06 15:58 | XRay Report ---
CHEST 1 VIEW INDICATION: sob. COMPARISON: 11/21/2019 FINDINGS: Support devices: None. Heart: Normal. Lungs/Pleura: There are multiple somewhat nodular opacities within both lungs, greater on the right. These are new since the prior. Background interstitial changes are again noted. No significant effusi on, no pneumothorax. IMPRESSION: 1. New, patchy nodular opacities in both lungs. These could be inflammatory/infectious in etiology. N eoplastic/metastatic process could have this appearance. Signer Name: Jose Curtis MD Signed: 05/06/2020 3:54 PM Workstation Name: [id number]
[2020-05-06 16:16] LABS: Hematocrit 30.4 % (30.3-42.9); Hemoglobin 10.4 gm/dl (10.1-14.3); Mean Corpuscular HGB Conc 34 % (30-34); Mean Corpuscular Volume 90 fl (79-97); Platelet Count 238 K/mm3 (140-440); Red Blood Count 3.39 M/mm3 (3.65-5.03); Red Cell Distribution Width 14.4 % (13.2-15.2)
[2020-05-06 16:31] LABS: INR 1.19 (0.87-1.13)
[2020-05-06 16:32] LABS: Partial Thromboplastin Time 25.4 Sec. (24.2-36.6)
[2020-05-06 16:34] LABS: Alanine Aminotransferase 31 units/L (7-56); Albumin 3.3 g/dL (3.9-5); Blood Urea Nitrogen 22 mg/dL (7-17); Hemolysis Index 17
[2020-05-06] MEDS ORDERED: SODIUM CHLORIDE 0.9% 1000 ML 1,000 ML IV ONE (16:41)
[2020-05-06 16:43] LABS: BUN/Creatinine Ratio 37
[2020-05-06 17:31] LABS: Band Neutrophils # (Manual) 1.6 K/mm3; Basophils % (Manual) 0 % (0.0-1.8); Eosinophils % (Manual) 0 % (0.0-4.3); Hypochromasia 1+; Large Platelets Rare; Myelocytes # (Manual) 0.1 K/mm3; Platelet Estimate Consistent w Auto; Total Cells Counted 100
[2020-05-06 17:33] LABS: Bilirubin,Urine SM (Negative); Blood,Urine MOD (Negative); Color,Urine Amber (Yellow); Mucus,Urine 2+ /HPF
[2020-05-06 17:34] LABS: Protein,Urine >500 mg/dL (Negative)
[2020-05-06 17:40] LABS: Ictotest,Urine Positive (Negative)
--- NOTE | 2020-05-06 18:03 | Cat Scan Report ---
CT ABDOMEN AND PELVIS WITHOUT CONTRAST INDICATION / CLINICAL INFORMATION: MAIN. TECHNIQUE: Axial CT images were obtained through the abdomen and pelvis without IV contrast. All CT scans at [facility] location are performed using CT dose reduction for ALARA by means of automated exposure control. COMPARISON: 05/02/2020 FINDINGS: LOWER CHEST: Patchy consolidative opacification in the bilateral bases and small right pleural effusi on. Findings are progressed compared to the prior examination. Coronary artery atherosclerotic calcif ication. HEPATOBILIARY: Small hypodensity in the right hepatic lobe which is too small to characterize, possib le cyst. Liver is mildly enlarged. Cholecystectomy status. Stable prominence of the common bile duct without evidence of intrahepatic biliary ductal dilatation. PANCREAS: No significant abnormality. SPLEEN: Mildly enlarged without focal lesion. ADRENALS: No significant abnormality. GENITOURINARY: No significant abnormality. GASTROINTESTINAL/MESENTERY: Thickening and mild inflammatory change involving the second and third po rtions of the duodenum. Remaining bowel demonstrates Significant stool throughout the colon suggestin g constipation, no bowel obstruction or inflammation. Appendix demonstrates no significant abnormalit y. No evidence of free air or free fluid. RETROPERITONEUM: No significant adenopathy. REPRODUCTIVE ORGANS: Poorly visualized secondary to artifact from right hip postoperative change. VASCULAR: Significant atherosclerotic calcification of the abdominal aorta and iliac vessels. IVC tasha ter in place below the level of the renal veins. SKELETAL SYSTEM: Postoperative change from right hip arthroplasty. Diffuse degenerative change withou t acute abnormality. ADDITIONAL FINDINGS: No significant abnormality. IMPRESSION: 1. Mild inflammatory change and thickening of the duodenum concerning for duodenitis. No evidence of perforation. 2. Patchy consolidative opacification in the bilateral bases. Covid 19 could represent in a similar f ashion. Consider clinical correlation and laboratory testing, and further follow-up as warranted. 3. Hepatomegaly. 4. Additional findings as above. Signer Name: Demar Blake MD Signed: 05/06/2020 5:58 PM Workstation Name: [id number]
[2020-05-06] MEDS ORDERED: cefTRIAXone/NS 1 GM/50 ML 1 GM/50 ML BAG IV ONE (18:12)
[2020-05-06] MEDS ORDERED: POTASSIUM CHLORIDE ER 20 MEQ TAB PO ONE (18:12)
[2020-05-06] MEDS ORDERED: PANTOPRAZOLE 40 MG INJ IV ONE (18:16)
--- NOTE | 2020-05-06 18:30 | History and Physical Report ---
History of Present Illness Chief complaint: I have been feeling sick History of present illness: 69 YO Female with HTN, GERD, HCV, OA, Depression, COPD, Vascular Dementia, JUANITA on CPAP, Nicotine Dependence, Chronic Respiratory Failure on 3L Home Oxygen presents to ED for evaluation. Pt states that she has experienced worsening shortness of breath, weakness, abdominal discomfort, nausea, multiple episodes of vomiting, malaise, decreased exercise tolerance, over the past 3 days with persistently worsening symptoms over the same timeframe. EMS notified, and upon arrival the patient was found to be in distress and the patient was subsequently transported to [facility] for further care and evaluation. Pt seen and evaluated in ED. lab and imaging studies reviewed. Chest x-ray revealed bilateral pneumonia. The patient was found to have acute on Chronic Hypoxemic Respiratory Failure requiring increase in supplemental oxygen requirement, as well as urinary tract infection. A CT scan of the abdomen and pelvis was conducted and the patient was found to have evidence of duodenitis. Patient initiated on COVID-19 laya col in the emergency department. Infectious disease service consulted in ED. Pt denies fever, chills, palpitations, NVD, Trauma, prolonged travel/immobility, unilateral leg swelling, calf pain, prolonged travel/immobility, individual/family history of DVT/PE/Blood Clotting Disorder, recent ill cont acts, ingestion of food/water from new or different sources, or known exposure to COVID-19. Advanced care planning conducted in ED. Prior admission on 09/23/2019 reviewed. All medication listed at time of admission has been reconciled. Past History Past Medical History: COPD, GERD, hypertension, other (See HPI) Past Surgical History: cholecystectomy, Other (Thyroid surgery) Social history: single. denies: smoking, alcohol abuse Family history: diabetes, hypertension Medications and Allergies Allergies Allergy/AdvReac Type Severity Reaction Status Date / Time Iodinated Contrast Media Allergy Itching Verified 01/09/19 17:24 [Iodinated Contrast Media - IV Dye] ivp dye Allergy Itching Uncoded 10/05/17 08:23 Home Medications Medication Instructions Recorded Confirmed Last Taken Type Quetiapine Fumarate [SEROquel] 400 mg PO HS #30 tablet 10/08/17 09/23/19 Unknown Rx ALBUTEROL NEB's [Proventil 0.083% 2.5 mg IH QID PRN 03/11/19 09/23/19 Unknown History NEBS] Apixaban [Eliquis] 5 mg PO BID 03/11/19 09/23/19 Unknown History Omeprazole 20 mg PO QDAY 03/11/19 09/23/19 Unknown History donepeziL [Aricept] 5 mg PO QHS 03/11/19 09/23/19 Unknown History PARoxetine HCL [PARoxetine] 40 mg PO QDAY #30 tablet 03/16/19 09/23/19 Unknown Rx guaiFENesin [Robitussin] 200 mg PO Q6H PRN tablet 03/16/19 09/23/19 Unknown Rx Apixaban [Eliquis] 5 mg PO BID #60 tablet 03/19/19 09/23/19 Unknown Rx PARoxetine [Paxil] 40 mg PO QDAY #30 tablet 03/19/19 09/23/19 Unknown Rx Propranolol LA [Inderal LA] 60 mg PO QDAY #30 capsule 03/19/19 09/23/19 Unknown Rx QUEtiapine [SEROquel] 400 mg PO HS #30 tablet 03/19/19 09/23/19 Unknown Rx Simvastatin 20 mg PO HS #30 tablet 03/19/19 09/23/19 Unknown Rx donepeziL [Aricept] 5 mg PO QHS #30 tablet 03/19/19 09/23/19 Unknown Rx Docusate Sodium [Colace] 100 mg PO BID PRN #60 capsule 06/20/19 09/23/19 Unknown Rx Lactulose 10 gm PO DAILY PRN #150 ml 06/20/19 09/23/19 Unknown Rx Ondansetron [Zofran Odt] 4 mg PO Q8HR PRN #14 tab.rapdis 07/12/19 09/23/19 Unknown Rx Prednisone [predniSONE 10 mg 10 mg PO .TAPER #1 tab.ds.pk 09/25/19 Unknown Rx (6-Day Pack, 21 Tabs)] Albuterol Mdi (or & Nicu Only) 2 puff IH Q4HR PRN #1 inhalation 11/05/19 Unknown Rx [ProAir HFA Inhaler] predniSONE [Deltasone] 20 mg PO DAILY #15 tablet 11/05/19 Unknown Rx Famotidine [Pepcid] 20 mg PO BID #30 tablet 12/06/19 Unknown Rx Ondansetron [Zofran Odt] 4 mg PO Q8HR PRN #20 tab.rapdis 12/06/19 Unknown Rx predniSONE [Deltasone] 50 mg PO QDAY #5 tab 02/28/20 Unknown Rx traMADoL [Ultram] 50 mg PO Q6HR PRN #7 tablet 02/28/20 Unknown Rx predniSONE [Deltasone] 20 mg PO QDAY #5 tab 05/02/20 Unknown Rx traMADoL [Ultram] 50 mg PO Q6HR PRN #10 tablet 05/02/20 Unknown Rx Active Meds: Active Medications Ceftriaxone Sodium (Rocephin/Ns 2 Gm/100 Ml) 2 gm in 100 mls @ 200 mls/hr IV Q24H [facility]; Protocol Azithromycin 500 mg/ Sodium (Chloride) 250 mls @ 250 mls/hr IV Q24H [facility]; Prot ocol Review of Systems Constitutional: fatigue, weakness, malaise, lethargy, no weight gain, no fever, no chills, no sweats Ears, nose, mouth and throat: no ear pain, no ear discharge, no tinnitis, no decreased hearing, no nose pain, no nasal congestion Breasts: no change in shape Cardiovascular: no chest pain, no orthopnea, no palpitations, no rapid/irregular heart beat, no edema Respiratory: no cough with sputum, no hemoptysis Gastrointestinal: abdominal pain, nausea, vomiting Genitourinary Female: no pelvic pain, no flank pain, no dysuria, no urinary frequency, no urgency Rectal: no pain, no incontinence, no bleeding Musculoskeletal: no neck stiffness, no neck pain, no shooting arm pain, no arm numbness/tingling, no low back pain Integumentary: no rash, no pruritis, no redness, no sores, no jaundice Neurological: no transient paralysis, no paralysis, no seizures, no tremors Psychiatric: no anxiety, no memory loss, no sleep disturbances, no insomnia, no hypersomnia Endocrine: no cold intolerance, no heat intolerance, no polydipsia, no excessive sweating, no flushing Hematologic/Lymphatic: no easy bruising, no easy bleeding Allergic/Immunologic: no allergic rhinitis, no wheezing Exam - Constitutional Vitals: Temp Pulse Resp BP Pulse Ox 100.3 F H 81 20 128/48 98 05/06/20 16:52 05/06/20 16:53 05/06/20 16:53 05/06/20 16:53 05/06/20 16:53 General appearance: Present: mild distress, obese - EENT Eyes: Present: PERRL ENT: hearing intact, clear oral mucosa - Neck Neck: Present: supple, normal ROM - Respiratory Respiratory effort: normal Respiratory: bilateral: CTA - Cardiovascular Heart Sounds: Present: S1 & S2. Absent: rub, click - Extremities Extremities: pulses symmetrical, No edema Peripheral Pulses: within normal limits - Abdominal General gastrointestinal: Present: soft, non-tender, non-distended, normal bowel sounds Female genitourinary: Present: normal - Integumentary Integumentary: Present: clear, warm, dry - Musculoskeletal Musculoskeletal: gait normal, strength equal bilaterally - Psychiatric Psychiatric: appropriate mood/affect, intact judgment & insight - Neurologic Neurologic: CNII-XII intact, moves all extremities Results - Labs CBC & Chem 7: 05/06/20 15:54 05/06/20 18:25 Labs: Abnormal lab results 05/06/20 05/06/20 05/06/20 Range/Units 15:54 15:54 15:54 WBC 14.2 H (4.5-11.0) K/mm3 RBC 3.39 L (3.65-5.03) M/mm3 Seg Neuts % (Manual) 74.0 H (40.0-70.0) % Lymphocytes % (Manual) 8.0 L (13.4-35.0) % Seg Neutrophils # Man 10.5 H (1.8-7.7) K/mm3 Lymphocytes # (Manual) 1.1 L (1.2-5.4) K/mm3 Monocytes # (Manual) 0.9 H (0.0-0.8) K/mm3 PT 15.4 H (12.2-14.9) Sec. INR 1.19 H (0.87-1.13) Sodium 132 L (137-145) mmol/L Potassium 3.4 L D (3.6-5.0) mmol/L Chloride 91.8 L (98-107) mmol/L BUN 22 H (7-17) mg/dL Glucose 133 H (65-100) mg/dL Total Bilirubin 2.20 H (0.1-1.2) mg/dL Albumin 3.3 L (3.9-5) g/dL Lipase 10 L (13-60) units/L Urine WBC (Auto) (0.0-6.0) /HPF 05/06/20 Range/Units Unknown WBC (4.5-11.0) K/mm3 RBC (3.65-5.03) M/mm3 Seg Neuts % (Manual) (40.0-70.0) % Lymphocytes % (Manual) (13.4-35.0) % Seg Neutrophils # Man (1.8-7.7) K/mm3 Lymphocytes # (Manual) (1.2-5.4) K/mm3 Monocytes # (Manual) (0.0-0.8) K/mm3 PT (12.2-14.9) Sec. INR (0.87-1.13) Sodium (137-145) mmol/L Potassium (3.6-5.0) mmol/L Chloride (98-107) mmol/L BUN (7-17) mg/dL Glucose (65-100) mg/dL Total Bilirubin (0.1-1.2) mg/dL Albumin (3.9-5) g/dL Lipase (13-60) units/L Urine WBC (Auto) 29.0 H (0.0-6.0) /HPF Assessment and Plan - Patient Problems (1) Acute and chronic respiratory failure Current Visit: Yes Status: Acute Qualifiers: Respiratory failure complication: hypoxia Qualified Code(s): J96.21 - Acute and chronic respiratory failure with hypoxia Plan to address problem: Supplemental oxygen, pulse oximetry, nebulizer therapy, chest x-ray, increase supplemental oxygen as clinically indicated. (2) Duodenitis Current Visit: Yes Status: Acute Plan to address problem: Prevpac initiated, supportive care. Outpatient GI follow-up. (3) Bilateral pneumonia Current Visit: Yes Status: Acute Plan to address problem: Pneumonia protocol: Chest x-ray, IV antibiotic therapy, supplemental oxygen, pulse oximetry, blood culture. (4) Suspected COVID-19 virus infection Current Visit: Yes Status: Acute Plan to address problem: Coronavirus protocol: Coronavirus PCR ordered in ED, infectious disease service consulted, contact precautions, isolation precautions, prone positioning while in bed. (5) UTI (urinary tract infection) Current Visit: Yes Status: Acute Qualifiers: Encounter type: initial encounter Plan to address problem: IV antibiotic therapy, supportive care, urinalysis. (6) Gastroesophageal reflux disease Current Visit: Yes Status: Acute Qualifiers: Esophagitis presence: without esophagitis Qualified Code(s): K21.9 - Gastro-esophageal reflux disease without esophagitis Plan to address problem: PPI therapy, supportive care. Outpatient GI follow-up for further care and evaluation. (7) Advance care planning Current Visit: Yes Status: Acute Plan to address problem: Disease education conducted, patient is full code, patient prognosis discussed, patient knowledges understanding and agreement with care plan, +30 minutes. (8) DVT prophylaxis Current Visit: Yes Status: Acute Plan to address problem: SCD to bilateral lower extremities while in bed, patient is ambulatory
[2020-05-06] MEDS ORDERED: ONDANSETRON 4 MG/2 ML INJ IV PRN (18:33)
[2020-05-06] MEDS: ACETAMINOPHEN 325 MG TAB PO PRN (18:59)
[2020-05-06] MEDS: cefTRIAXone/NS 2 GM/100 ML 2 GM/100 ML BAG IV SCH (19:00)
[2020-05-06 19:20] LABS: C-Reactive Protein 28.4 mg/dL (0.00-1.30)
[2020-05-06] MEDS ORDERED: ACETAMINOPHEN 325 MG TAB ONE (20:51)
[2020-05-06] MEDS ORDERED: CLARITHROMYCIN 500 MG TAB PO SCH (22:00)
--- NOTE | 2020-05-07 00:03 | Cat Scan Report ---
Examination: CT of the head without contrast Clinical information: Stroke symptoms Comparison: CT of the head without contrast, 07/12/2019 Technical: Multiple axial CT images of the head were obtained without intravenous contrast. Sagittal and coronal reformats were obtained. All CTs at this facility utilize dose reduction techniques inc luding automated exposure control, iterative reconstruction and weight based dosing when appropriate to reduce patient radiation dose to as low as reasonable achievable. Findings: There is no CT evidence of acute intracranial hemorrhage or large territorial infarct. The ventricular system remains normal in size. Mild to moderate generalized parenchymal volume loss is ag ain noted. No abnormal extra-axial fluid collection is identified. Evaluation of bony structures demonstrates no evidence of acute calvarial abnormality. The bilateral orbits and globes appear normal. The paranasal sinuses and mastoid air cells are clear. Impression: 1. No CT evidence of acute intracranial process. If there is persistent clinical concern for stroke, then MRI of the brain would be helpful for additional evaluation. Signer Name: Kiley Muro MD Signed: 05/06/2020 11:59 PM Workstation Name: [id number]
[2020-05-07] MEDS: AMOXICILLIN 500 MG CAP PO SCH ×2 (00:14→09:00)
[2020-05-07] MEDS: methylPREDNISolone Sod Succinate 40 MG/1 ML INJ IV SCH ×4 (00:14→22:50)
[2020-05-07] MEDS: PANTOPRAZOLE 40 MG TAB PO SCH ×3 (00:14→22:49)
[2020-05-07] MEDS: ACETAMINOPHEN 325 MG TAB PO PRN ×4 (00:14→18:02)
[2020-05-07] MEDS: metroNIDAZOLE/NS 500 MG/100 ML 500 MG/100 ML BAG IV SCH ×3 (00:49→13:56)
[2020-05-07] MEDS: AZITHROMYCIN 500 MG in SODIUM CHLORIDE 0.9% 250ML 250 ML IV SCH ×2 (04:35→23:52)
[2020-05-07 07:33] LABS: Hemoglobin 10.3 gm/dl (10.1-14.3); Mean Corpuscular HGB Conc 33 % (30-34); Mean Corpuscular Volume 90 fl (79-97); Red Blood Count 3.45 M/mm3 (3.65-5.03); Red Cell Distribution Width 14.8 % (13.2-15.2)
[2020-05-07 07:51] LABS: BUN/Creatinine Ratio 39; Blood Urea Nitrogen 31 mg/dL (7-17); Hemolysis Index 8
[2020-05-07 08:53] LABS: Band Neutrophils # (Manual) 1.6 K/mm3; Basophils % (Manual) 0 % (0.0-1.8); Eosinophils % (Manual) 0 % (0.0-4.3); Total Cells Counted 100
[2020-05-07 08:54] LABS: Large Platelets Few; Platelet Estimate Consistent w Auto
[2020-05-07 08:55] LABS: Platelet Count 277 K/mm3 (140-440)
[2020-05-07] MEDS ORDERED: ONDANSETRON 4 MG/2 ML INJ IV PRN (10:19)
[2020-05-07] MEDS ORDERED: NICOTINE 14 MG/24 HR PATCH TD ONE (10:30)
[2020-05-07] MEDS: NICOTINE 14 MG/24 HR PATCH TD SCH (11:13)
[2020-05-07] MEDS ORDERED: ALUM-MAG HYDROXIDE-SIMETHICONE 200-200-20MG/5ML ORAL LIQD 30 ML PO PRN (13:35)
--- NOTE | 2020-05-07 13:45 | Consultation ---
History of Present Illness - Reason for Consult Consult date: 05/07/20 Pneumonia Requesting physician: KEIRA GOMEZ - History of Present Illness The patient is a 69-year-old female with hypertension, gastroesophageal reflux disease, vascular dementia, COPD on chronic home oxygen was admitted to the hospital with complaints of abdominal pain and nausea along with vomiting for the past few days. She denies any fever. Upon evaluation in the ED, a CT scan of the abdomen and pelvis showed some duodenitis in addition to patchy pulmonary infiltrates. COVID-19 test was done and is negative. Infectious diseases was consulted for possible pneumonia. Patient is currently on 5 L oxygen by nasal cannula, states she uses between 3 to 4 L daily. Still having some nausea. Denies urinary burning Review of Systems: General: no fevers,chills or rigors HEENT: no new visual disturbance Respiratory: Chronic shortness of breath Cardiovascular: No chest pain, syncope Gastrointestinal: Positive for nausea, vomiting no diarrhea Genitourinary: No dysuria or hematuria Musculoskeletal: No new or worsening neck pain or back pain Neurologic: No headaches, seizures Hematologic: No easy bruising or bleeding Endocrine: No night sweats or acute weight loss Skin: negative for rash, jaundice Psychiatric: No suicidal or homicidal ideation Past History Past Medical History: COPD, GERD, hypertension, other (See HPI) Past Surgical History: cholecystectomy, Other (Thyroid surgery) Social history: single. denies: smoking, alcohol abuse Family history: diabetes, hypertension Medications and Allergies Allergies Allergy/AdvReac Type Severity Reaction Status Date / Time Iodinated Contrast Media Allergy Itching Verified 01/09/19 17:24 [Iodinated Contrast Media - IV Dye] ivp dye Allergy Itching Uncoded 10/05/17 08:23 Home Medications Medication Instructions Recorded Confirmed Last Taken Type Quetiapine Fumarate [SEROquel] 400 mg PO HS #30 tablet 10/08/17 09/23/19 Unknown Rx ALBUTEROL NEB's [Proventil 0.083% 2.5 mg IH QID PRN 03/11/19 09/23/19 Unknown History NEBS] Apixaban [Eliquis] 5 mg PO BID 03/11/19 09/23/19 Unknown History Omeprazole 20 mg PO QDAY 03/11/19 09/23/19 Unknown History donepeziL [Aricept] 5 mg PO QHS 03/11/19 09/23/19 Unknown History PARoxetine HCL [PARoxetine] 40 mg PO QDAY #30 tablet 03/16/19 09/23/19 Unknown Rx guaiFENesin [Robitussin] 200 mg PO Q6H PRN tablet 03/16/19 09/23/19 Unknown Rx Apixaban [Eliquis] 5 mg PO BID #60 tablet 03/19/19 09/23/19 Unknown Rx PARoxetine [Paxil] 40 mg PO QDAY #30 tablet 03/19/19 09/23/19 Unknown Rx Propranolol LA [Inderal LA] 60 mg PO QDAY #30 capsule 03/19/19 09/23/19 Unknown Rx QUEtiapine [SEROquel] 400 mg PO HS #30 tablet 03/19/19 09/23/19 Unknown Rx Simvastatin 20 mg PO HS #30 tablet 03/19/19 09/23/19 Unknown Rx donepeziL [Aricept] 5 mg PO QHS #30 tablet 03/19/19 09/23/19 Unknown Rx Docusate Sodium [Colace] 100 mg PO BID PRN #60 capsule 06/20/19 09/23/19 Unknown Rx Lactulose 10 gm PO DAILY PRN #150 ml 06/20/19 09/23/19 Unknown Rx Ondansetron [Zofran Odt] 4 mg PO Q8HR PRN #14 tab.rapdis 07/12/19 09/23/19 Unknown Rx Prednisone [predniSONE 10 mg 10 mg PO .TAPER #1 tab.ds.pk 09/25/19 Unknown Rx (6-Day Pack, 21 Tabs)] Albuterol Mdi (or & Nicu Only) 2 puff IH Q4HR PRN #1 inhalation 11/05/19 Unknown Rx [ProAir HFA Inhaler] predniSONE [Deltasone] 20 mg PO DAILY #15 tablet 11/05/19 Unknown Rx Famotidine [Pepcid] 20 mg PO BID #30 tablet 12/06/19 Unknown Rx Ondansetron [Zofran Odt] 4 mg PO Q8HR PRN #20 tab.rapdis 12/06/19 Unknown Rx predniSONE [Deltasone] 50 mg PO QDAY #5 tab 02/28/20 Unknown Rx traMADoL [Ultram] 50 mg PO Q6HR PRN #7 tablet 02/28/20 Unknown Rx predniSONE [Deltasone] 20 mg PO QDAY #5 tab 05/02/20 Unknown Rx traMADoL [Ultram] 50 mg PO Q6HR PRN #10 tablet 05/02/20 Unknown Rx Active Meds: Active Medications Acetaminophen (Tylenol) 650 mg PO Q4H PRN PRN Reason: Pain MILD(1-3)/Fever >100.5/VOGEL Last Admin: 05/07/20 09:40 Dose: 650 mg Documented by: Al Hydrox/Mg Hydrox/Simethicone (Alum-Mag Hydrox-Simeth [phone]/5ml) 30 ml PO Q4H PRN PRN Reason: Indigestion Ceftriaxone Sodium (Rocephin/Ns 2 Gm/100 Ml) 2 gm in 100 mls @ 200 mls/hr IV Q24H [facility]; Protocol Last Admin: 05/06/20 19:00 Dose: 200 mls/hr Documented by: Azithromycin 500 mg/ Sodium (Chloride) 250 mls @ 250 mls/hr IV Q24H [facility]; Protocol Last Admin: 05/07/20 04:35 Dose: Not Given Documented by: Metronidazole (Flagyl 500 Mg/100 Ml) 500 mg in 100 mls @ 100 mls/hr IV Q8H [facility]; Protocol Last Admin: 05/07/20 05:15 Dose: 100 mls/hr Documented by: Methylprednisolone Sodium Succinate (Solu-Medrol) 40 mg IV Q8H ANGE Last Admin: 05/07/20 05:15 Dose: 40 mg Documented by: Nicotine (Habitrol) 14 mg TD QDAY [facility] Last Admin: 05/07/20 11:13 Dose: 14 mg Documented by: Ondansetron HCl (Zofran) 4 mg IV Q4H PRN PRN Reason: Nausea And Vomiting Last Admin: 05/07/20 11:13 Dose: 4 mg Documented by: Pantoprazole Sodium (Protonix) 40 mg PO BID [facility] Last Admin: 05/07/20 09:00 Dose: 40 mg Documented by: Sodium Chloride (Sodium Chloride Flush Syringe 10 Ml) 10 ml IV BID [facility] Last Admin: 05/07/20 09:00 Dose: 10 ml Documented by: Sodium Chloride (Sodium Chloride Flush Syringe 10 Ml) 10 ml IV PRN PRN PRN Reason: LINE FLUSH Tramadol HCl (Ultram) 50 mg PO Q6H PRN PRN Reason: Pain, Moderate (4-6) Physical Examination - Physical Exam Narrative exam: Physical Exam: Constitutional: Alert, cooperative. No acute distress Head, Ears, Nose: Normocephalic, atraumatic. External ears, nose normal Eyes: Conjunctivae/corneas clear. No icterus. No ptosis. Neck: Supple, no meningeal signs Cardiovascular: S1, S2 normal. Respiratory: Diffuse rhonchi bilaterally GI: Soft, non-tender; bowel sounds normal. No peritoneal signs Musculoskeletal: No pedal edema, no cyanosis. Skin: No rash or abscess Hem/Lymphatic: No palpable cervical or supraclavicular nodes. No lymphangitis Psych: Mood ok. Affect normal Neurological: Awake, alert, oriented. No gross abnormality - Constitutional Vitals: Vital Signs Temp Pulse Resp BP Pulse Ox 97.9 F 61 19 109/52 99 05/07/20 11:22 05/07/20 11:22 05/07/20 11:22 05/07/20 11:22 05/07/20 11:22 Temperature -Last 24 Hours Temperature 97.9 F Temperature 97.4 F Temperature 98.8 F Temperature 99.0 F Temperature 98.9 F Temperature 100.3 F Temperature 98.3 F Results - Labs CBC & Chem 7: 05/07/20 07:00 05/07/20 07:00 Labs: Abnormal lab results 05/06/20 05/06/20 05/06/20 Range/Units 15:54 15:54 15:54 WBC 14.2 H (4.5-11.0) K/mm3 RBC 3.39 L (3.65-5.03) M/mm3 Seg Neuts % (Manual) 74.0 H (40.0-70.0) % Lymphocytes % (Manual) 8.0 L (13.4-35.0) % Seg Neutrophils # Man 10.5 H (1.8-7.7) K/mm3 Lymphocytes # (Manual) 1.1 L (1.2-5.4) K/mm3 Monocytes # (Manual) 0.9 H (0.0-0.8) K/mm3 PT 15.4 H (12.2-14.9) Sec. INR 1.19 H (0.87-1.13) D-Dimer (0-234) ng/mlDDU Sodium 132 L (137-145) mmol/L Potassium 3.4 L D (3.6-5.0) mmol/L Chloride 91.8 L (98-107) mmol/L BUN 22 H (7-17) mg/dL Glucose 133 H (65-100) mg/dL POC Glucose (70-105) Ferritin (10.0-200.0) ng/mL Total Bilirubin 2.20 H (0.1-1.2) mg/dL Lactate Dehydrogenase (91-180) units/L C-Reactive Protein (0.00-1.30) mg/dL Albumin 3.3 L (3.9-5) g/dL Lipase 10 L (13-60) units/L Urine WBC (Auto) (0.0-6.0) /HPF 05/06/20 05/06/20 05/06/20 Range/Units 18:25 18:25 18:25 WBC (4.5-11.0) K/mm3 RBC (3.65-5.03) M/mm3 Seg Neuts % (Manual) (40.0-70.0) % Lymphocytes % (Manual) (13.4-35.0) % Seg Neutrophils # Man (1.8-7.7) K/mm3 Lymphocytes # (Manual) (1.2-5.4) K/mm3 Monocytes # (Manual) (0.0-0.8) K/mm3 PT (12.2-14.9) Sec. INR (0.87-1.13) D-Dimer 2749.54 H (0-234) ng/mlDDU Sodium (137-145) mmol/L Potassium (3.6-5.0) mmol/L Chloride (98-107) mmol/L BUN (7-17) mg/dL Glucose 121 H (65-100) mg/dL POC Glucose (70-105) Ferritin 880.5 H (10.0-200.0) ng/mL Total Bilirubin (0.1-1.2) mg/dL Lactate Dehydrogenase 212 H (91-180) units/L C-Reactive Protein 28.40 H (0.00-1.30) mg/dL Albumin (3.9-5) g/dL Lipase (13-60) units/L Urine WBC (Auto) (0.0-6.0) /HPF 05/06/20 05/06/20 05/07/20 Range/Units 22:48 Unknown 07:00 WBC 15.7 H (4.5-11.0) K/mm3 RBC 3.45 L (3.65-5.03) M/mm3 Seg Neuts % (Manual) 83.0 H (40.0-70.0) % Lymphocytes % (Manual) 2.0 L (13.4-35.0) % Seg Neutrophils # Man 13.0 H (1.8-7.7) K/mm3 Lymphocytes # (Manual) 0.3 L (1.2-5.4) K/mm3 Monocytes # (Manual) (0.0-0.8) K/mm3 PT (12.2-14.9) Sec. INR (0.87-1.13) D-Dimer (0-234) ng/mlDDU Sodium (137-145) mmol/L Potassium (3.6-5.0) mmol/L Chloride (98-107) mmol/L BUN (7-17) mg/dL Glucose (65-100) mg/dL POC Glucose 138 H (70-105) Ferritin (10.0-200.0) ng/mL Total Bilirubin (0.1-1.2) mg/dL Lactate Dehydrogenase (91-180) units/L C-Reactive Protein (0.00-1.30) mg/dL Albumin (3.9-5) g/dL Lipase (13-60) units/L Urine WBC (Auto) 29.0 H (0.0-6.0) /HPF 05/07/20 Range/Units 07:00 WBC (4.5-11.0) K/mm3 RBC (3.65-5.03) M/mm3 Seg Neuts % (Manual) (40.0-70.0) % Lymphocytes % (Manual) (13.4-35.0) % Seg Neutrophils # Man (1.8-7.7) K/mm3 Lymphocytes # (Manual) (1.2-5.4) K/mm3 Monocytes # (Manual) (0.0-0.8) K/mm3 PT (12.2-14.9) Sec. INR (0.87-1.13) D-Dimer (0-234) ng/mlDDU Sodium (137-145) mmol/L Potassium (3.6-5.0) mmol/L Chloride (98-107) mmol/L BUN 31 H (7-17) mg/dL Glucose 117 H (65-100) mg/dL POC Glucose (70-105) Ferritin (10.0-200.0) ng/mL Total Bilirubin (0.1-1.2) mg/dL Lactate Dehydrogenase (91-180) units/L C-Reactive Protein (0.00-1.30) mg/dL Albumin (3.9-5) g/dL Lipase (13-60) units/L Urine WBC (Auto) (0.0-6.0) /HPF - Imaging and Cardiology Chest x-ray: report reviewed, image reviewed (patchy b/l airspace disease) Assessment and Plan Cultures: 05/06/2020 blood culture: No growth 05/06/2020 urine culture: No growth COVID-19 PCR: Negative CRP 28.4, procalcitonin 1.89, ferritin 880.5, d-dimer 2749 A/P: 69-year-old female with hypertension, gastroesophageal reflux disease, vascular dementia, COPD on chronic home oxygen was admitted to the hospital with complaints of abdominal pain and nausea along with vomiting for the past few days: #Bilateral patchy pneumonia: COVID-19 negative. Procalcitonin is elevated. Empirically treat for bacterial pneumonia with ceftriaxone and azithromycin for 5 days. #COPD with acute on chronic respiratory failure: On supplemental oxygen. Also on steroids. #Duodenitis: Continue supportive care. Protonix. Would not treat for presumptive H. pylori without a positive test. Recs: Continue IV ceftriaxone, azithromycin for 5 days recheck CRP and procalcitonin in 2 days Amox, Clarithromycin and Flagyl d/jay Faraz Bauer MD, FACP [facility] ([facility] C: [phone] O: [phone] F: [phone]
[2020-05-07] MEDS: traMADol 50 MG TAB PO PRN ×2 (13:55→19:35)
[2020-05-07] MEDS ORDERED: methylPREDNISolone Sod Succinate 40 MG/1 ML INJ IV SCH (14:00)
[2020-05-07] MEDS: cefTRIAXone/NS 2 GM/100 ML 2 GM/100 ML BAG IV SCH (18:39)
--- NOTE | 2020-05-07 20:41 | Progress Note ---
Assessment and Plan - Patient Problems (1) Acute and chronic respiratory failure Current Visit: Yes Status: Acute Qualifiers: Respiratory failure complication: hypoxia Qualified Code(s): J96.21 - Acute and chronic respiratory failure with hypoxia Plan to address problem: Supplemental oxygen, pulse oximetry, nebulizer therapy, chest x-ray, increase supplemental oxygen as clinically indicated. (2) Duodenitis Current Visit: Yes Status: Acute Plan to address problem: Prevpac initiated but discontinued as per infectious disease service recommendations, supportive care. Outpatient GI follow-up. (3) Bilateral pneumonia Current Visit: Yes Status: Acute Plan to address problem: Pneumonia protocol: Chest x-ray, IV antibiotic therapy, supplemental oxygen, pulse oximetry, blood culture. (4) Suspected COVID-19 virus infection Current Visit: Yes Status: Acute Plan to address problem: Coronavirus protocol: Coronavirus PCR negative, infectious disease service consulted, discontinue contact precautions, discontinue isolation precautions, prone positioning while in bed. (5) UTI (urinary tract infection) Current Visit: Yes Status: Acute Qualifiers: Encounter type: initial encounter Plan to address problem: IV antibiotic therapy, supportive care, urinalysis. (6) Gastroesophageal reflux disease Current Visit: Yes Status: Acute Qualifiers: Esophagitis presence: without esophagitis Qualified Code(s): K21.9 - Gastro-esophageal reflux disease without esophagitis Plan to address problem: PPI therapy, supportive care. Outpatient GI follow-up for further care and evaluation. (7) Advance care planning Current Visit: Yes Status: Acute Plan to address problem: Disease education conducted, patient is full code, patient prognosis discussed, patient knowledges understanding and agreement with care plan, +30 minutes. (8) DVT prophylaxis Current Visit: Yes Status: Acute Plan to address problem: SCD to bilateral lower extremities while in bed, patient is ambulatory History Interval history: 69 YO Female HD #2 with Pneumonia, Duodenitis, Coronavirus PCR negative, Chronic Respiratory Failure on 3L Home Oxygen. Pt resting comfortably. No reported nursing events. Patient symptoms improved compared to admission. Patient denies pain. Hospitalist Physical - Constitutional Vitals: Temp Pulse Resp BP Pulse Ox 97.5 F L 69 19 138/63 98 05/07/20 17:24 05/07/20 17:24 05/07/20 17:24 05/07/20 17:24 08/23/20 17:24 General appearance: Present: mild distress, obese - EENT Eyes: Present: PERRL, EOM intact - Neck Neck: Present: supple - Respiratory Respiratory effort: labored Respiratory: bilateral: diminished - Cardiovascular Rhythm: regular Heart Sounds: Present: S1 & S2 - Extremities Extremities: no ischemia Peripheral Pulses: within normal limits - Abdominal General gastrointestinal: soft, non-tender, non-distended - Integumentary Integumentary: Present: clear, dry - Psychiatric Psychiatric: appropriate mood/affect, cooperative - Neurologic Neurologic: CNII-XII intact Results - Labs CBC & Chem 7: 05/07/20 07:00 05/07/20 07:00 Labs: Laboratory Last Values WBC 15.7 K/mm3 (4.5-11.0) H 05/07/20 07:00 RBC 3.45 M/mm3 (3.65-5.03) L 05/07/20 07:00 Hgb 10.3 gm/dl (10.1-14.3) 05/07/20 07:00 Hct 31.0 % (30.3-42.9) 05/07/20 07:00 MCV 90 fl (79-97) 05/07/20 07:00 MCH 30 pg (28-32) 05/07/20 07:00 MCHC 33 % (30-34) 05/07/20 07:00 RDW 14.8 % (13.2-15.2) 05/07/20 07:00 Plt Count 277 K/mm3 (140-440) 05/07/20 07:00 Add Manual Diff Complete 05/07/20 07:00 Total Counted 100 05/07/20 07:00 Seg Neuts % (Manual) 83.0 % (40.0-70.0) H 05/07/20 07:00 Band Neutrophils % 10.0 % 05/07/20 07:00 Lymphocytes % (Manual) 2.0 % (13.4-35.0) L 05/07/20 07:00 Reactive Lymphs % (Man) 0 % 05/07/20 07:00 Monocytes % (Manual) 5.0 % (0.0-7.3) 05/07/20 07:00 Eosinophils % (Manual) 0 % (0.0-4.3) 05/07/20 07:00 Basophils % (Manual) 0 % (0.0-1.8) 05/07/20 07:00 Metamyelocytes % 0 % 05/07/20 07:00 Myelocytes % 0 % 05/07/20 07:00 Promyelocytes % 0 % 05/07/20 07:00 Blast Cells % 0 % 05/07/20 07:00 Nucleated RBC % Not Reportable 05/07/20 07:00 Seg Neutrophils # Man 13.0 K/mm3 (1.8-7.7) H 05/07/20 07:00 Band Neutrophils # 1.6 K/mm3 05/07/20 07:00 Lymphocytes # (Manual) 0.3 K/mm3 (1.2-5.4) L 05/07/20 07:00 Abs React Lymphs (Man) 0.0 K/mm3 05/07/20 07:00 Monocytes # (Manual) 0.8 K/mm3 (0.0-0.8) 05/07/20 07:00 Eosinophils # (Manual) 0.0 K/mm3 (0.0-0.4) 05/07/20 07:00 Basophils # (Manual) 0.0 K/mm3 (0.0-0.1) 05/07/20 07:00 Metamyelocytes # 0.0 K/mm3 05/07/20 07:00 Myelocytes # 0.0 K/mm3 05/07/20 07:00 Promyelocytes # 0.0 K/mm3 05/07/20 07:00 Blast Cells # 0.0 K/mm3 05/07/20 07:00 WBC Morphology Not Reportable 05/07/20 07:00 Hypersegmented Neuts Not Reportable 05/07/20 07:00 Hyposegmented Neuts Not Reportable 05/07/20 07:00 Hypogranular Neuts Not Reportable 05/07/20 07:00 Smudge Cells Not Reportable 05/07/20 07:00 Toxic Granulation Not Reportable 05/07/20 07:00 Toxic Vacuolation Not Reportable 05/07/20 07:00 Dohle Bodies Not Reportable 05/07/20 07:00 Pelger-Huet Anomaly Not Reportable 05/07/20 07:00 Dianne Rods Not Reportable 05/07/20 07:00 Platelet Estimate Consistent w auto 05/07/20 07:00 Clumped Platelets Not Reportable 05/07/20 07:00 Plt Clumps, EDTA Not Reportable 05/07/20 07:00 Large Platelets Few 05/07/20 07:00 Giant Platelets Not Reportable 05/07/20 07:00 Platelet Satelliting Not Reportable 05/07/20 07:00 Plt Morphology Comment Not Reportable 05/07/20 07:00 RBC Morphology Not Reportable 05/07/20 07:00 Dimorphic RBCs Not Reportable 05/07/20 07:00 Polychromasia Not Reportable 05/07/20 07:00 Hypochromasia Not Reportable 05/07/20 07:00 Poikilocytosis Not Reportable 05/07/20 07:00 Anisocytosis Not Reportable 05/07/20 07:00 Microcytosis Not Reportable 05/07/20 07:00 Macrocytosis Not Reportable 05/07/20 07:00 Spherocytes Not Reportable 05/07/20 07:00 Pappenheimer Bodies Not Reportable 05/07/20 07:00 Sickle Cells Not Reportable 05/07/20 07:00 Target Cells Not Reportable 05/07/20 07:00 Tear Drop Cells Not Reportable 05/07/20 07:00 Ovalocytes Not Reportable 05/07/20 07:00 Helmet Cells Not Reportable 05/07/20 07:00 [place] [employer] Bodies Not Reportable 05/07/20 07:00 [place] Rings Not Reportable 05/07/20 07:00 [place] Cells Not Reportable 05/07/20 07:00 Bite Cells Not Reportable 05/07/20 07:00 Crenated Cell Not Reportable 05/07/20 07:00 Elliptocytes Not Reportable 05/07/20 07:00 Acanthocytes (Spur) Not Reportable 05/07/20 07:00 Rouleaux Not Reportable 05/07/20 07:00 Hemoglobin C Crystals Not Reportable 05/07/20 07:00 Schistocytes Not Reportable 05/07/20 07:00 Malaria parasites Not Reportable 05/07/20 07:00 Rah Bodies Not Reportable 05/07/20 07:00 Hem Pathologist Commnt No 05/07/20 07:00 PT 15.4 Sec. (12.2-14.9) H 05/06/20 15:54 INR 1.19 (0.87-1.13) H 05/06/20 15:54 APTT 25.4 Sec. (24.2-36.6) 05/06/20 15:54 D-Dimer 2749.54 ng/mlDDU (0-234) H 05/06/20 18:25 Sodium 138 mmol/L (137-145) 05/07/20 07:00 Potassium 4.5 mmol/L (3.6-5.0) D 05/07/20 07:00 Chloride 98.9 mmol/L (98-107) 05/07/20 07:00 Carbon Dioxide 23 mmol/L (22-30) 05/07/20 07:00 Anion Gap 21 mmol/L 05/07/20 07:00 BUN 31 mg/dL (7-17) H 05/07/20 07:00 Creatinine 0.8 mg/dL (0.6-1.2) 05/07/20 07:00 Estimated GFR > 60 ml/min 05/07/20 07:00 BUN/Creatinine Ratio 39 % 05/07/20 07:00 Glucose 117 mg/dL (65-100) H 05/07/20 07:00 POC Glucose 138 (70-105) H 05/06/20 22:48 Calcium 9.0 mg/dL (8.4-10.2) 05/07/20 07:00 Ferritin 880.5 ng/mL (10.0-200.0) H 05/06/20 18:25 Total Bilirubin 2.20 mg/dL (0.1-1.2) H 05/06/20 15:54 AST 38 units/L (5-40) 05/06/20 15:54 ALT 31 units/L (7-56) 05/06/20 15:54 Alkaline Phosphatase 92 units/L (35-129) 05/06/20 15:54 Lactate Dehydrogenase 212 units/L (91-180) H 05/06/20 18:25 C-Reactive Protein 28.40 mg/dL (0.00-1.30) H 05/06/20 18:25 Total Protein 7.5 g/dL (6.3-8.2) 05/06/20 15:54 Albumin 3.3 g/dL (3.9-5) L 05/06/20 15:54 Albumin/Globulin Ratio 0.8 % 05/06/20 15:54 Lipase 10 units/L (13-60) L 05/06/20 15:54 Procalcitonin 1.89 ng/mL (<0.15) 05/06/20 18:25 Urine Color Corazon (Yellow) 05/06/20 Unknown Urine Turbidity Slightly-cloudy (Clear) 05/06/20 Unknown Urine pH 5.0 (5.0-7.0) 05/06/20 Unknown Ur Specific [place] 1.029 (1.003-1.030) 05/06/20 Unknown Urine Protein >500 mg/dL (Negative) 05/06/20 Unknown Urine Glucose (UA) Neg mg/dL (Negative) 05/06/20 Unknown Urine Ketones Neg mg/dL (Negative) 05/06/20 Unknown Urine Blood Mod (Negative) 05/06/20 Unknown Urine Nitrite Neg (Negative) 05/06/20 Unknown Urine Bilirubin Sm (Negative) 05/06/20 Unknown Urine Ictotest Positive (Negative) 05/06/20 Unknown Urine Urobilinogen 4.0 mg/dL (<2.0) 05/06/20 Unknown Ur Leukocyte Esterase Tr (Negative) 05/06/20 Unknown Urine WBC (Auto) 29.0 /HPF (0.0-6.0) H 05/06/20 Unknown Urine RBC (Auto) 5.0 /HPF (0.0-6.0) 05/06/20 Unknown U Epithel Cells (Auto) 3.0 /HPF (0-13.0) 05/06/20 Unknown Urine Mucus 2+ /HPF 05/06/20 Unknown Coronavirus (PCR) Negative (Negative) 05/07/20 08:18 Microbiology: Microbiology 05/06/20 18:29 Peripheral/Venous Blood Culture - Preliminary 05/06/20 18:25 Peripheral/Venous Blood Culture - Preliminary 05/06/20 Unknown Urine,Clean Catch Urine Culture - Preliminary NO GROWTH AFTER 24 HOURS Richard/IV: Voiding Method Toilet IV Catheter Type [Left Hand] INT / Saline Lock Active Medications - Current Medications Current Medications: Generic Name Dose Route Start Last Admin Trade Name Freq PRN Reason Stop Dose Admin Acetaminophen 650 mg 05/06/20 18:33 05/07/20 18:02 Tylenol PO 650 mg Q4H PRN Administration Pain MILD(1-3)/Fever >100.5/VOGEL Al Hydrox/Mg Hydrox/Simethicone 30 ml 05/07/20 13:35 05/07/20 13:55 Alum-Mag Hydrox-Simeth 890-272-78nv/5ml PO 30 ml Q4H PRN Administration Indigestion Donepezil HCl 5 mg 05/07/20 22:00 Aricept PO QHS ANGE Guaifenesin 200 mg 05/07/20 20:12 Robitussin PO Q6H PRN Cough Ceftriaxone Sodium 2 gm in 100 mls @ 200 mls/hr 05/06/20 19:00 05/07/20 18:39 Rocephin/Ns 2 Gm/100 Ml IV 05/10/20 19:29 200 mls/hr Q24H ANGE Administration Protocol Azithromycin 500 mg/ Sodium 250 mls @ 250 mls/hr 05/06/20 19:00 05/07/20 04:35 Chloride IV 05/10/20 19:59 Not Given Q24H [facility] Protocol Methylprednisolone Sodium Succinate 40 mg 05/07/20 22:00 Solu-Medrol IV Q8H ANGE Nicotine 14 mg 05/07/20 11:00 05/07/20 11:13 Habitrol TD 14 mg QDAY ANGE Administration Ondansetron HCl 4 mg 05/07/20 10:19 05/07/20 11:13 Zofran IV 4 mg Q4H PRN Administration Nausea And Vomiting Pantoprazole Sodium 40 mg 05/06/20 22:00 05/07/20 09:00 Protonix PO 40 mg BID ANGE Administration Quetiapine Fumarate 400 mg 05/07/20 22:00 Seroquel PO HS ANGE Sodium Chloride 10 ml 05/06/20 22:00 05/07/20 09:00 Sodium Chloride Flush Syringe 10 Ml IV 10 ml BID ANGE Administration Sodium Chloride 10 ml 05/06/20 18:33 Sodium Chloride Flush Syringe 10 Ml IV PRN PRN LINE FLUSH Tramadol HCl 50 mg 05/07/20 13:34 05/07/20 19:35 Ultram PO 50 mg Q6H PRN Administration Pain, Moderate (4-6) Nutrition/Malnutrition Assess - Dietary Evaluation Nutrition/Malnutrition Findings: Nutrition Notes Start: 05/07/20 10:32 Freq: Status: Active Protocol: Document 05/07/20 10:32 LM (Rec: 05/07/20 10:42 LM [id number]) Nutrition Notes Need for Assessment generated from: MD Order,special education para professional,MST Initial or Follow up Assessment Current Diagnosis COPD,Hypertension,Respiratory Failure Other Pertinent Diagnosis Suspected COVID-19, pneu, duodinitis, UTI, nicotine dependence Current Diet cardiac Labs/Tests Reviewed Pertinent Medications Solu-Medrol Height 5 ft 3 in Weight 81.64 kg [place] Body Weight (kg) 52.27 BMI 31.8 Weight Status Obese Subjective/Other Information MD [email or web address] for ONS and RN screen for MST. Pt stated that she sometimes has poor appetite and nausea. Pt stated she currently feels nauseous. Pt stated she has lost and gained wt in the past but with no recent wt loss. Pt stated her UBW is 140lb (pt's current wt in chart is 180lb). Burn Absent Trauma Absent GI Symptoms Nausea Minimum of two criteria No Energy Intake (non-severe) <75% Estimated Energy Requirement >7 days #1 Nutrition Diagnosis Inadequate oral intake Etiology decreased appetite, chronic illness, nausea As Evidenced by Signs and Symptoms Pt statement of not eating well at home Is patient on ventilator? No Is Patient Ambulatory and/or Out of Bed Yes REE-([place]-ambulatory/OOB) [ 2486.689 NUTR.[id number]] Kcal/Kg value to use for calculation 18 Approximate Energy Requirements Using 1470 kcal/Kg Calculation Used for Recommendations Kcal/kg Additional Notes Protein: 67-80g (1-1.2g/ kgusing AdjBW 67kg) Fluid: 1ml/kcal or per MD Nutrition Intervention Change Diet Order: continue Add Supplement/Snack (indicate name/kcal Ensure Enlive daily /protein ) Provides kCal: 350 Provides Protein (gm) 20 Goal #1 Meet at least 75% of energy and protein needs Anticipated Discharge Needs: cardiac Follow-Up By: 05/10/20 Additional Comments F/U for PO/ONS intakes
[2020-05-07] MEDS: QUEtiapine 200 MG TAB PO SCH (22:49)
[2020-05-07] MEDS: DONEPEZIL 5 MG TAB PO SCH (22:50)
[2020-05-07] MEDS: guaiFENesin 200 MG TAB PO PRN (23:01)
[2020-05-08] MEDS ORDERED: LORazepam 2 MG/ML VIAL IV ONE (00:21)
[2020-05-08] MEDS: methylPREDNISolone Sod Succinate 40 MG/1 ML INJ IV SCH ×3 (06:18→21:03)
[2020-05-08] MEDS: NICOTINE 14 MG/24 HR PATCH TD SCH (11:00)
[2020-05-08] MEDS: AZITHROMYCIN 250 MG TAB PO SCH (11:01)
[2020-05-08] MEDS: PANTOPRAZOLE 40 MG TAB PO SCH ×2 (11:01→21:02)
[2020-05-08] MEDS: traMADol 50 MG TAB PO PRN ×3 (11:01→20:40)
[2020-05-08] MEDS: cefTRIAXone/NS 2 GM/100 ML 2 GM/100 ML BAG IV SCH (11:08)
--- NOTE | 2020-05-08 13:11 | Progress Note ---
Assessment and Plan Cultures: 05/06/2020 blood culture: Staph aureus 05/06/2020 urine culture: No growth COVID-19 PCR: Negative CRP 28.4, procalcitonin 1.89, ferritin 880.5, d-dimer 2749 A/P: 69-year-old female with hypertension, gastroesophageal reflux disease, vascular dementia, COPD on chronic home oxygen was admitted to the hospital with complaints of abdominal pain and nausea along with vomiting for the past few days: #Staph aureus bacteremia: Source unclear, possibly pneumonia. Repeat blood cultures. Check TTE. #Bilateral patchy pneumonia: COVID-19 negative. Procalcitonin is elevated. #COPD with acute on chronic respiratory failure: On supplemental oxygen. Also on steroids. #Duodenitis: Continue supportive care. Protonix. Would not treat for presumptive H. pylori without a positive test. Recs: Continue IV ceftriaxone, azithromycin IV Vancomycin added due to Staph aureus bacteremia. TTE Repeat blood cultures Faraz Bauer MD, FACP [facility] C: [phone] O: [phone] F: [phone] Subjective Date of service: 05/08/20 Interval history: No fever. Feels fair, on oxygen. Wants to go home. Objective - Exam Narrative Exam: Physical Exam: Constitutional: Alert, cooperative. No acute distress Head, Ears, Nose: Normocephalic, atraumatic. External ears, nose normal Eyes: Conjunctivae/corneas clear. No icterus. No ptosis. Neck: Supple, no meningeal signs Cardiovascular: S1, S2 normal. Respiratory: Diffuse rhonchi bilaterally GI: Soft, non-tender; bowel sounds normal. No peritoneal signs Musculoskeletal: No pedal edema, no cyanosis. Skin: No rash or abscess Hem/Lymphatic: No palpable cervical or supraclavicular nodes. No lymphangitis Psych: Mood ok. Affect normal Neurological: Awake, alert, oriented. No gross abnormality - Constitutional Vitals: Vital Signs Temp Pulse Resp BP Pulse Ox 97.6 F 79 22 122/57 95 05/08/20 11:48 05/08/20 11:48 05/08/20 11:48 05/08/20 11:48 05/08/20 11:48 Temperature -Last 24 Hours Temperature 97.6 F Temperature 97.5 F Temperature 97.4 F Temperature 97.5 F - Labs CBC & Chem 7: 05/07/20 07:00 05/07/20 07:00
[2020-05-08] MEDS ORDERED: VANCOMYCIN 1,250 MG in SODIUM CHLORIDE 0.9% 500 ML 500 ML IV ONE (13:12)
[2020-05-08] MEDS ORDERED: VANCOMYCIN PHARMACY TO DOSE IV SCH (14:00)
[2020-05-08] MEDS ORDERED: VANCOMYCIN 1,750 MG in SODIUM CHLORIDE 0.9% 500 ML 500 ML IV ONE (15:00)
[2020-05-08] MEDS: ACETAMINOPHEN 325 MG TAB PO PRN (18:37)
--- NOTE | 2020-05-08 20:46 | Progress Note ---
Assessment and Plan - Patient Problems (1) Acute and chronic respiratory failure Current Visit: Yes Status: Acute Qualifiers: Respiratory failure complication: hypoxia Qualified Code(s): J96.21 - Acute and chronic respiratory failure with hypoxia Plan to address problem: Supplemental oxygen, pulse oximetry, nebulizer therapy, chest x-ray, increase supplemental oxygen as clinically indicated. (2) Duodenitis Current Visit: Yes Status: Acute Plan to address problem: Prevpac initiated but discontinued as per infectious disease service recommendations, supportive care. Outpatient GI follow-up. (3) Bilateral pneumonia Current Visit: Yes Status: Acute Plan to address problem: Pneumonia protocol: Chest x-ray, IV antibiotic therapy, supplemental oxygen, pulse oximetry, blood culture. (4) Suspected COVID-19 virus infection Current Visit: Yes Status: Acute Plan to address problem: Coronavirus protocol: Coronavirus PCR negative, (5) UTI (urinary tract infection) Current Visit: Yes Status: Acute Qualifiers: Encounter type: initial encounter Plan to address problem: IV antibiotic therapy, supportive care, urinalysis. (6) Gastroesophageal reflux disease Current Visit: Yes Status: Acute Qualifiers: Esophagitis presence: without esophagitis Qualified Code(s): K21.9 - Gastro-esophageal reflux disease without esophagitis Plan to address problem: PPI therapy, supportive care. Outpatient GI follow-up for further care and evaluation. (7) Advance care planning Current Visit: Yes Status: Acute Plan to address problem: Disease education conducted, patient is full code, patient prognosis discussed, patient knowledges understanding and agreement with care plan, +30 minutes. (8) DVT prophylaxis Current Visit: Yes Status: Acute Plan to address problem: SCD to bilateral lower extremities while in bed, patient is ambulatory History Interval history: 69 YO Female HD #3 with Pneumonia, Duodenitis, Coronavirus PCR negative, Chronic Respiratory Failure on 3L Home Oxygen. Pt resting comfortably. No reported nursing events. Patient symptoms improved compared to admission. Patient denies pain. Discharge planning in a.m. if continued improvement of symptoms. Hospitalist Physical - Constitutional Vitals: Temp Pulse Resp BP Pulse Ox 97.6 F 79 22 122/57 97 05/08/20 11:48 05/08/20 11:48 05/08/20 11:48 05/08/20 11:48 05/08/20 20:33 General appearance: Present: mild distress, obese - EENT Eyes: Present: PERRL, EOM intact ENT: hearing intact - Neck Neck: Present: supple - Respiratory Respiratory: bilateral: diminished - Cardiovascular Rhythm: regular Heart Sounds: Present: S1 & S2 - Extremities Extremities: no ischemia Peripheral Pulses: within normal limits - Abdominal General gastrointestinal: soft, non-tender, non-distended - Integumentary Integumentary: Present: clear, dry - Psychiatric Psychiatric: appropriate mood/affect, cooperative - Neurologic Neurologic: CNII-XII intact Results - Labs CBC & Chem 7: 05/07/20 07:00 05/07/20 07:00 Labs: Laboratory Last Values WBC 15.7 K/mm3 (4.5-11.0) H 05/07/20 07:00 RBC 3.45 M/mm3 (3.65-5.03) L 05/07/20 07:00 Hgb 10.3 gm/dl (10.1-14.3) 05/07/20 07:00 Hct 31.0 % (30.3-42.9) 05/07/20 07:00 MCV 90 fl (79-97) 05/07/20 07:00 MCH 30 pg (28-32) 05/07/20 07:00 MCHC 33 % (30-34) 05/07/20 07:00 RDW 14.8 % (13.2-15.2) 05/07/20 07:00 Plt Count 277 K/mm3 (140-440) 05/07/20 07:00 Add Manual Diff Complete 05/07/20 07:00 Total Counted 100 05/07/20 07:00 Seg Neuts % (Manual) 83.0 % (40.0-70.0) H 05/07/20 07:00 Band Neutrophils % 10.0 % 05/07/20 07:00 Lymphocytes % (Manual) 2.0 % (13.4-35.0) L 05/07/20 07:00 Reactive Lymphs % (Man) 0 % 05/07/20 07:00 Monocytes % (Manual) 5.0 % (0.0-7.3) 05/07/20 07:00 Eosinophils % (Manual) 0 % (0.0-4.3) 05/07/20 07:00 Basophils % (Manual) 0 % (0.0-1.8) 05/07/20 07:00 Metamyelocytes % 0 % 05/07/20 07:00 Myelocytes % 0 % 05/07/20 07:00 Promyelocytes % 0 % 05/07/20 07:00 Blast Cells % 0 % 05/07/20 07:00 Nucleated RBC % Not Reportable 05/07/20 07:00 Seg Neutrophils # Man 13.0 K/mm3 (1.8-7.7) H 05/07/20 07:00 Band Neutrophils # 1.6 K/mm3 05/07/20 07:00 Lymphocytes # (Manual) 0.3 K/mm3 (1.2-5.4) L 05/07/20 07:00 Abs React Lymphs (Man) 0.0 K/mm3 05/07/20 07:00 Monocytes # (Manual) 0.8 K/mm3 (0.0-0.8) 05/07/20 07:00 Eosinophils # (Manual) 0.0 K/mm3 (0.0-0.4) 05/07/20 07:00 Basophils # (Manual) 0.0 K/mm3 (0.0-0.1) 05/07/20 07:00 Metamyelocytes # 0.0 K/mm3 05/07/20 07:00 Myelocytes # 0.0 K/mm3 05/07/20 07:00 Promyelocytes # 0.0 K/mm3 05/07/20 07:00 Blast Cells # 0.0 K/mm3 05/07/20 07:00 WBC Morphology Not Reportable 05/07/20 07:00 Hypersegmented Neuts Not Reportable 05/07/20 07:00 Hyposegmented Neuts Not Reportable 05/07/20 07:00 Hypogranular Neuts Not Reportable 05/07/20 07:00 Smudge Cells Not Reportable 05/07/20 07:00 Toxic Granulation Not Reportable 05/07/20 07:00 Toxic Vacuolation Not Reportable 05/07/20 07:00 Dohle Bodies Not Reportable 05/07/20 07:00 Pelger-Huet Anomaly Not Reportable 05/07/20 07:00 Dianne Rods Not Reportable 05/07/20 07:00 Platelet Estimate Consistent w auto 05/07/20 07:00 Clumped Platelets Not Reportable 05/07/20 07:00 Plt Clumps, EDTA Not Reportable 05/07/20 07:00 Large Platelets Few 05/07/20 07:00 Giant Platelets Not Reportable 05/07/20 07:00 Platelet Satelliting Not Reportable 05/07/20 07:00 Plt Morphology Comment Not Reportable 05/07/20 07:00 RBC Morphology Not Reportable 05/07/20 07:00 Dimorphic RBCs Not Reportable 05/07/20 07:00 Polychromasia Not Reportable 05/07/20 07:00 Hypochromasia Not Reportable 05/07/20 07:00 Poikilocytosis Not Reportable 05/07/20 07:00 Anisocytosis Not Reportable 05/07/20 07:00 Microcytosis Not Reportable 05/07/20 07:00 Macrocytosis Not Reportable 05/07/20 07:00 Spherocytes Not Reportable 05/07/20 07:00 Pappenheimer Bodies Not Reportable 05/07/20 07:00 Sickle Cells Not Reportable 05/07/20 07:00 Target Cells Not Reportable 05/07/20 07:00 Tear Drop Cells Not Reportable 05/07/20 07:00 Ovalocytes Not Reportable 05/07/20 07:00 Helmet Cells Not Reportable 05/07/20 07:00 [place] Bodies Not Reportable 05/07/20 07:00 [place] Rings Not Reportable 05/07/20 07:00 [place] Cells Not Reportable 05/07/20 07:00 Bite Cells Not Reportable 05/07/20 07:00 Crenated Cell Not Reportable 05/07/20 07:00 Elliptocytes Not Reportable 05/07/20 07:00 Acanthocytes (Spur) Not Reportable 05/07/20 07:00 Rouleaux Not Reportable 05/07/20 07:00 Hemoglobin C Crystals Not Reportable 05/07/20 07:00 Schistocytes Not Reportable 05/07/20 07:00 Malaria parasites Not Reportable 05/07/20 07:00 Rah Bodies Not Reportable 05/07/20 07:00 Hem Pathologist Commnt No 05/07/20 07:00 PT 15.4 Sec. (12.2-14.9) H 05/06/20 15:54 INR 1.19 (0.87-1.13) H 05/06/20 15:54 APTT 25.4 Sec. (24.2-36.6) 05/06/20 15:54 D-Dimer 2749.54 ng/mlDDU (0-234) H 05/06/20 18:25 Sodium 138 mmol/L (137-145) 05/07/20 07:00 Potassium 4.5 mmol/L (3.6-5.0) D 05/07/20 07:00 Chloride 98.9 mmol/L (98-107) 05/07/20 07:00 Carbon Dioxide 23 mmol/L (22-30) 05/07/20 07:00 Anion Gap 21 mmol/L 05/07/20 07:00 BUN 31 mg/dL (7-17) H 05/07/20 07:00 Creatinine 0.8 mg/dL (0.6-1.2) 05/07/20 07:00 Estimated GFR > 60 ml/min 05/07/20 07:00 BUN/Creatinine Ratio 39 % 05/07/20 07:00 Glucose 117 mg/dL (65-100) H 05/07/20 07:00 POC Glucose 138 (70-105) H 05/06/20 22:48 Calcium 9.0 mg/dL (8.4-10.2) 05/07/20 07:00 Ferritin 880.5 ng/mL (10.0-200.0) H 05/06/20 18:25 Total Bilirubin 2.20 mg/dL (0.1-1.2) H 05/06/20 15:54 AST 38 units/L (5-40) 05/06/20 15:54 ALT 31 units/L (7-56) 05/06/20 15:54 Alkaline Phosphatase 92 units/L (35-129) 05/06/20 15:54 Lactate Dehydrogenase 212 units/L (91-180) H 05/06/20 18:25 C-Reactive Protein 28.40 mg/dL (0.00-1.30) H 05/06/20 18:25 Total Protein 7.5 g/dL (6.3-8.2) 05/06/20 15:54 Albumin 3.3 g/dL (3.9-5) L 05/06/20 15:54 Albumin/Globulin Ratio 0.8 % 05/06/20 15:54 Lipase 10 units/L (13-60) L 05/06/20 15:54 Procalcitonin 1.89 ng/mL (<0.15) 05/06/20 18:25 Urine Color [place] (Yellow) 05/06/20 Unknown Urine Turbidity Slightly-cloudy (Clear) 05/06/20 Unknown Urine pH 5.0 (5.0-7.0) 05/06/20 Unknown Ur Specific [place] 1.029 (1.003-1.030) 05/06/20 Unknown Urine Protein >500 mg/dL (Negative) 05/06/20 Unknown Urine Glucose (UA) Neg mg/dL (Negative) 05/06/20 Unknown Urine Ketones Neg mg/dL (Negative) 05/06/20 Unknown Urine Blood Mod (Negative) 05/06/20 Unknown Urine Nitrite Neg (Negative) 05/06/20 Unknown Urine Bilirubin Sm (Negative) 05/06/20 Unknown Urine Ictotest Positive (Negative) 05/06/20 Unknown Urine Urobilinogen 4.0 mg/dL (<2.0) 05/06/20 Unknown Ur Leukocyte Esterase Tr (Negative) 05/06/20 Unknown Urine WBC (Auto) 29.0 /HPF (0.0-6.0) H 05/06/20 Unknown Urine RBC (Auto) 5.0 /HPF (0.0-6.0) 05/06/20 Unknown U Epithel Cells (Auto) 3.0 /HPF (0-13.0) 05/06/20 Unknown Urine Mucus 2+ /HPF 05/06/20 Unknown Coronavirus (PCR) Negative (Negative) 05/07/20 08:18 Microbiology: Microbiology 05/06/20 18:29 Peripheral/Venous Blood Culture - Preliminary Staphylococcus Aureus 05/06/20 18:25 Peripheral/Venous Blood Culture - Preliminary Staphylococcus Aureus 05/06/20 Unknown Urine,Clean Catch Urine Culture - Preliminary Richard/IV: Voiding Method Toilet IV Catheter Type [Left Upper INT / Saline Lock arm] IV Catheter Type [Left Forearm INT / Saline Lock ] IV Catheter Type [Left Hand] INT / Saline Lock Active Medications - Current Medications Current Medications: Generic Name Dose Route Start Last Admin Trade Name Freq PRN Reason Stop Dose Admin Acetaminophen 650 mg 05/06/20 18:33 05/08/20 18:37 Tylenol PO 650 mg Q4H PRN Administration Pain MILD(1-3)/Fever >100.5/VOGEL Al Hydrox/Mg Hydrox/Simethicone 30 ml 05/07/20 13:35 05/07/20 13:55 Alum-Mag Hydrox-Simeth [id number]/5ml PO 30 ml Q4H PRN Administration Indigestion Azithromycin 500 mg 05/08/20 10:00 05/08/20 11:01 Zithromax PO 05/11/20 10:01 500 mg QDAY ANGE Administration Donepezil HCl 5 mg 05/07/20 22:00 05/07/20 22:50 Aricept PO 5 mg QHS ANGE Administration Guaifenesin 200 mg 05/07/20 20:12 05/07/20 23:01 Robitussin PO 200 mg Q6H PRN Administration Cough Ceftriaxone Sodium 2 gm in 100 mls @ 200 mls/hr 05/08/20 12:00 05/08/20 11:08 Rocephin/Ns 2 Gm/100 Ml IV 05/10/20 10:29 200 mls/hr Q24HR ANGE Administration Protocol Vancomycin HCl 1,250 mg/ 275 mls @ 166.667 mls/hr 05/09/20 12:00 Sodium Chloride IV Q18H ANGE Methylprednisolone Sodium Succinate 40 mg 05/07/20 22:00 05/08/20 13:00 Solu-Medrol IV 40 mg Q8H ANGE Administration Nicotine 14 mg 05/07/20 11:00 05/08/20 11:00 Habitrol TD 14 mg QDAY ANGE Administration Ondansetron HCl 4 mg 05/07/20 10:19 05/07/20 11:13 Zofran IV 4 mg Q4H PRN Administration Nausea And Vomiting Pantoprazole Sodium 40 mg 05/06/20 22:00 05/08/20 11:01 Protonix PO 40 mg BID ANGE Administration Quetiapine Fumarate 400 mg 05/07/20 22:00 05/07/20 22:49 Seroquel PO 400 mg HS ANGE Administration Sodium Chloride 10 ml 05/06/20 22:00 05/08/20 11:01 Sodium Chloride Flush Syringe 10 Ml IV 10 ml BID ANGE Administration Sodium Chloride 10 ml 05/06/20 18:33 Sodium Chloride Flush Syringe 10 Ml IV PRN PRN LINE FLUSH Tramadol HCl 50 mg 05/07/20 13:34 05/08/20 20:40 Ultram PO 50 mg Q6H PRN Administration Pain, Moderate (4-6) Nutrition/Malnutrition Assess - Dietary Evaluation Nutrition/Malnutrition Findings: Nutrition Notes Start: 05/07/20 10:3 2 Freq: Status: Active Protocol: Document 05/07/20 10:32 LM (Rec: 05/07/20 10:42 LM [id number]) Nutrition Notes Need for Assessment generated from: MD Order,glaze wiper,MST Initial or Follow up Assessment Current Diagnosis COPD,Hypertension,Respiratory Failure Other Pertinent Diagnosis Suspected COVID-19, pneu, duodinitis, UTI, nicotine dependence Current Diet cardiac Labs/Tests Reviewed Pertinent Medications Solu-Medrol Height 5 ft 3 in Weight 81.64 kg [place] Body Weight (kg) 52.27 BMI 31.8 Weight Status Obese Subjective/Other Information MD conuslt for ONS and RN screen for MST. Pt stated that she sometimes has poor appetite and nausea. Pt stated she currently feels nauseous. Pt stated she has lost and gained wt in the past but with no recent wt loss. Pt stated her UBW is 140lb (pt's current wt in chart is 180lb). Burn Absent Trauma Absent GI Symptoms Nausea Minimum of two criteria No Energy Intake (non-severe) <75% Estimated Energy Requirement >7 days #1 Nutrition Diagnosis Inadequate oral intake Etiology decreased appetite, chronic illness, nausea As Evidenced by Signs and Symptoms Pt statement of not eating well at home Is patient on ventilator? No Is Patient Ambulatory and/or Out of Bed Yes REE-([facility]-ambulatory/OOB) [ 5516.689 [id number]] Kcal/Kg value to use for calculation 18 Approximate Energy Requirements Using 1470 kcal/Kg Calculation Used for Recommendations Kcal/kg Additional Notes Protein: 67-80g (1-1.2g/ kgusing AdjBW 67kg) Fluid: 1ml/kcal or per MD Nutrition Intervention Change Diet Order: continue Add Supplement/Snack (indicate name/kcal Ensure Enlive daily /protein ) Provides kCal: 350 Provides Protein (gm) 20 Goal #1 Meet at least 75% of energy and protein needs Anticipated Discharge Needs: cardiac Follow-Up By: 05/10/20 Additional Comments F/U for PO/ONS intakes
[2020-05-08] MEDS: QUEtiapine 200 MG TAB PO SCH (21:02)
[2020-05-08] MEDS: DONEPEZIL 5 MG TAB PO SCH (21:02)
[2020-05-09] MEDS: methylPREDNISolone Sod Succinate 40 MG/1 ML INJ IV SCH ×3 (05:48→21:36)
[2020-05-09] MEDS: traMADol 50 MG TAB PO PRN ×3 (05:53→21:35)
[2020-05-09] MEDS: cefTRIAXone/NS 2 GM/100 ML 2 GM/100 ML BAG IV SCH (10:42)
[2020-05-09] MEDS: NICOTINE 14 MG/24 HR PATCH TD SCH (10:42)
[2020-05-09] MEDS: ACETAMINOPHEN 325 MG TAB PO PRN ×2 (10:42→18:38)
[2020-05-09] MEDS: guaiFENesin 200 MG TAB PO PRN ×2 (10:43→21:35)
[2020-05-09] MEDS: PANTOPRAZOLE 40 MG TAB PO SCH ×2 (10:43→21:35)
[2020-05-09] MEDS: AZITHROMYCIN 250 MG TAB PO SCH (10:43)
--- NOTE | 2020-05-09 11:38 | Progress Note ---
Assessment and Plan Assessment and plan: 69 YO Female with HTN, GERD, HCV, OA, Depression, COPD, Vascular Dementia, JUANITA on CPAP, Nicotine Dependence, Chronic Respiratory Failure on 3L Home Oxygen who presented to ED for evaluation of worsening shortness of breath, weakness, abdominal discomfort, nausea, multiple episodes of vomiting, malaise, decreased exercise tolerance 3 days prior to presentation. Upon arrival of the EMS, the patient was found to be in distress and the patient was subsequently transported to [facility] for further care and evaluation. Pt seen and evaluated in ED. Chest x-ray revealed bilateral pneumonia. The patient was found to have acute on Chronic Hypoxemic Respiratory Failure requiring increase in supplemental oxygen requirement, as well as urinary tract infection. A CT scan of the abdomen and pelvis was conducted and the patient was found to have evidence of duodenitis. Patient initiated on COVID-19 protocol in the emergency department. Infectious disease service consulted in ED. 05/09. Patient noted to have staph bacteremia. ID on board. Patient is on vancomycin, ceftriaxone and azithromycin. Repeat blood cultures have been sent. Transthoracic echocardiogram performed showed no endocarditis. - Patient Problems (1) Bilateral pneumonia Current Visit: Yes Status: Acute Plan to address problem: This is likely from Staphylococcus Patient is on vancomycin, ceftriaxone and azithromycin ID is on board Repeat blood cultures have been sent (2) COPD exacerbation Onset Date: 10/14/13 Current Visit: Yes Status: Acute Plan to address problem: Continue Solu-Medrol 40 mg every 8 and taper Bronchodilators Pulmonology follow-up at discharge (3) Duodenitis Current Visit: Yes Status: Acute Plan to address problem: Continue PPI. (4) UTI (urinary tract infection) Current Visit: Yes Status: Acute Qualifiers: Encounter type: initial encounter Plan to address problem: Urine culture shows MRSA. ID is following. (5) Acute on chronic respiratory failure with hypoxemia Current Visit: No Status: Acute (6) Staphylococcus aureus bacteremia Current Visit: Yes Status: Acute Plan to address problem: No sepsis. Repeat blood cultures have been sent Continue vancomycin Transthoracic echocardiogram shows no endocarditis. May need a QUINCY (7) Staphylococcus aureus infection Current Visit: Yes Status: Acute Plan to address problem: On vancomycin. ID following (8) Elevated d-dimer Current Visit: Yes Status: Acute Plan to address problem: Check ultrasound LE (9) DVT prophylaxis Current Visit: Yes Status: Acute Plan to address problem: Heparin/Lovenox History Interval history: See assessment and plan Hospitalist Physical - Constitutional Vitals: Temp Pulse Resp BP Pulse Ox 97.9 F 75 20 111/66 95 05/09/20 06:01 05/08/20 20:31 05/09/20 06:01 05/09/20 06:01 05/09/20 07:37 General appearance: Present: no acute distress, obese - Neck Neck: Present: supple, normal ROM - Respiratory Respiratory: bilateral: wheezing - Cardiovascular Heart Sounds: Present: S1 & S2 - Extremities Extremities: No edema - Abdominal General gastrointestinal: soft, non-tender, non-distended - Integumentary Integumentary: Present: clear - Psychiatric Psychiatric: appropriate mood/affect - Neurologic Neurologic: CNII-XII intact Results - Labs CBC & Chem 7: 05/07/20 07:00 05/07/20 07:00 Labs: Laboratory Last Values WBC 15.7 K/mm3 (4.5-11.0) H 05/07/20 07:00 RBC 3.45 M/mm3 (3.65-5.03) L 05/07/20 07:00 Hgb 10.3 gm/dl (10.1-14.3) 05/07/20 07:00 Hct 31.0 % (30.3-42.9) 05/07/20 07:00 MCV 90 fl (79-97) 05/07/20 07:00 MCH 30 pg (28-32) 05/07/20 07:00 MCHC 33 % (30-34) 05/07/20 07:00 RDW 14.8 % (13.2-15.2) 05/07/20 07:00 Plt Count 277 K/mm3 (140-440) 05/07/20 07:00 Add Manual Diff Complete 05/07/20 07:00 Total Counted 100 05/07/20 07:00 Seg Neuts % (Manual) 83.0 % (40.0-70.0) H 05/07/20 07:00 Band Neutrophils % 10.0 % 05/07/20 07:00 Lymphocytes % (Manual) 2.0 % (13.4-35.0) L 05/07/20 07:00 Reactive Lymphs % (Man) 0 % 05/07/20 07:00 Monocytes % (Manual) 5.0 % (0.0-7.3) 05/07/20 07:00 Eosinophils % (Manual) 0 % (0.0-4.3) 05/07/20 07:00 Basophils % (Manual) 0 % (0.0-1.8) 05/07/20 07:00 Metamyelocytes % 0 % 05/07/20 07:00 Myelocytes % 0 % 05/07/20 07:00 Promyelocytes % 0 % 05/07/20 07:00 Blast Cells % 0 % 05/07/20 07:00 Nucleated RBC % Not Reportable 05/07/20 07:00 Seg Neutrophils # Man 13.0 K/mm3 (1.8-7.7) H 05/07/20 07:00 Band Neutrophils # 1.6 K/mm3 05/07/20 07:00 Lymphocytes # (Manual) 0.3 K/mm3 (1.2-5.4) L 05/07/20 07:00 Abs React Lymphs (Man) 0.0 K/mm3 05/07/20 07:00 Monocytes # (Manual) 0.8 K/mm3 (0.0-0.8) 05/07/20 07:00 Eosinophils # (Manual) 0.0 K/mm3 (0.0-0.4) 05/07/20 07:00 Basophils # (Manual) 0.0 K/mm3 (0.0-0.1) 05/07/20 07:00 Metamyelocytes # 0.0 K/mm3 05/07/20 07:00 Myelocytes # 0.0 K/mm3 05/07/20 07:00 Promyelocytes # 0.0 K/mm3 05/07/20 07:00 Blast Cells # 0.0 K/mm3 05/07/20 07:00 WBC Morphology Not Reportable 05/07/20 07:00 Hypersegmented Neuts Not Reportable 05/07/20 07:00 Hyposegmented Neuts Not Reportable 05/07/20 07:00 Hypogranular Neuts Not Reportable 05/07/20 07:00 Smudge Cells Not Reportable 05/07/20 07:00 Toxic Granulation Not Reportable 05/07/20 07:00 Toxic Vacuolation Not Reportable 05/07/20 07:00 Dohle Bodies Not Reportable 05/07/20 07:00 Pelger-Huet Anomaly Not Reportable 05/07/20 07:00 Dianne Rods Not Reportable 05/07/20 07:00 Platelet Estimate Consistent w auto 05/07/20 07:00 Clumped Platelets Not Reportable 05/07/20 07:00 Plt Clumps, EDTA Not Reportable 05/07/20 07:00 Large Platelets Few 05/07/20 07:00 Giant Platelets Not Reportable 05/07/20 07:00 Platelet Satelliting Not Reportable 05/07/20 07:00 Plt Morphology Comment Not Reportable 05/07/20 07:00 RBC Morphology Not Reportable 05/07/20 07:00 Dimorphic RBCs Not Reportable 05/07/20 07:00 Polychromasia Not Reportable 05/07/20 07:00 Hypochromasia Not Reportable 05/07/20 07:00 Poikilocytosis Not Reportable 05/07/20 07:00 Anisocytosis Not Reportable 05/07/20 07:00 Microcytosis Not Reportable 05/07/20 07:00 Macrocytosis Not Reportable 05/07/20 07:00 Spherocytes Not Reportable 05/07/20 07:00 Pappenheimer Bodies Not Reportable 05/07/20 07:00 Sickle Cells Not Reportable 05/07/20 07:00 Target Cells Not Reportable 05/07/20 07:00 Tear Drop Cells Not Reportable 05/07/20 07:00 Ovalocytes Not Reportable 05/07/20 07:00 Helmet Cells Not Reportable 05/07/20 07:00 [place] Bodies Not Reportable 05/07/20 07:00 [place] Rings Not Reportable 05/07/20 07:00 Raj Cells Not Reportable 05/07/20 07:00 Bite Cells Not Reportable 05/07/20 07:00 Crenated Cell Not Reportable 05/07/20 07:00 Elliptocytes Not Reportable 05/07/20 07:00 Acanthocytes (Spur) Not Reportable 05/07/20 07:00 Rouleaux Not Reportable 05/07/20 07:00 Hemoglobin C Crystals Not Reportable 05/07/20 07:00 Schistocytes Not Reportable 05/07/20 07:00 Malaria parasites Not Reportable 05/07/20 07:00 Rah Bodies Not Reportable 05/07/20 07:00 Hem Pathologist Commnt No 05/07/20 07:00 PT 15.4 Sec. (12.2-14.9) H 05/06/20 15:54 INR 1.19 (0.87-1.13) H 05/06/20 15:54 APTT 25.4 Sec. (24.2-36.6) 05/06/20 15:54 D-Dimer 2749.54 ng/mlDDU (0-234) H 05/06/20 18:25 Sodium 138 mmol/L (137-145) 05/07/20 07:00 Potassium 4.5 mmol/L (3.6-5.0) D 05/07/20 07:00 Chloride 98.9 mmol/L (98-107) 05/07/20 07:00 Carbon Dioxide 23 mmol/L (22-30) 05/07/20 07:00 Anion Gap 21 mmol/L 05/07/20 07:00 BUN 31 mg/dL (7-17) H 05/07/20 07:00 Creatinine 0.8 mg/dL (0.6-1.2) 05/07/20 07:00 Estimated GFR > 60 ml/min 05/07/20 07:00 BUN/Creatinine Ratio 39 % 05/07/20 07:00 Glucose 117 mg/dL (65-100) H 05/07/20 07:00 POC Glucose 138 (70-105) H 05/06/20 22:48 Calcium 9.0 mg/dL (8.4-10.2) 05/07/20 07:00 Ferritin 880.5 ng/mL (10.0-200.0) H 05/06/20 18:25 Total Bilirubin 2.20 mg/dL (0.1-1.2) H 05/06/20 15:54 AST 38 units/L (5-40) 05/06/20 15:54 ALT 31 units/L (7-56) 05/06/20 15:54 Alkaline Phosphatase 92 units/L (35-129) 05/06/20 15:54 Lactate Dehydrogenase 212 units/L (91-180) H 05/06/20 18:25 C-Reactive Protein 28.40 mg/dL (0.00-1.30) H 05/06/20 18:25 Total Protein 7.5 g/dL (6.3-8.2) 05/06/20 15:54 Albumin 3.3 g/dL (3.9-5) L 05/06/20 15:54 Albumin/Globulin Ratio 0.8 % 05/06/20 15:54 Lipase 10 units/L (13-60) L 05/06/20 15:54 Procalcitonin 1.89 ng/mL (<0.15) 05/06/20 18:25 Urine Color Corazon (Yellow) 05/06/20 Unknown Urine Turbidity Slightly-cloudy (Clear) 05/06/20 Unknown Urine pH 5.0 (5.0-7.0) 05/06/20 Unknown Ur Specific [place] 1.029 (1.003-1.030) 05/06/20 Unknown Urine Protein >500 mg/dL (Negative) 05/06/20 Unknown Urine Glucose (UA) Neg mg/dL (Negative) 05/06/20 Unknown Urine Ketones Neg mg/dL (Negative) 05/06/20 Unknown Urine Blood Mod (Negative) 05/06/20 Unknown Urine Nitrite Neg (Negative) 05/06/20 Unknown Urine Bilirubin Sm (Negative) 05/06/20 Unknown Urine Ictotest Positive (Negative) 05/06/20 Unknown Urine Urobilinogen 4.0 mg/dL (<2.0) 05/06/20 Unknown Ur Leukocyte Esterase Tr (Negative) 05/06/20 Unknown Urine WBC (Auto) 29.0 /HPF (0.0-6.0) H 05/06/20 Unknown Urine RBC (Auto) 5.0 /HPF (0.0-6.0) 05/06/20 Unknown U Epithel Cells (Auto) 3.0 /HPF (0-13.0) 05/06/20 Unknown Urine Mucus 2+ /HPF 05/06/20 Unknown Coronavirus (PCR) Negative (Negative) 05/07/20 08:18 Microbiology: Microbiology 05/06/20 18:29 Peripheral/Venous Blood Culture - Final Methicillin Resist S. Aureus 05/06/20 18:25 Peripheral/Venous Blood Culture - Final Methicillin Resist S. Aureus 05/06/20 Unknown Urine,Clean Catch Urine Culture - Final Methicillin Resist S. Aureus 05/08/20 19:20 Peripheral/Venous Blood Culture - Preliminary Culture in Progress 05/08/20 19:20 Peripheral/Venous Blood Culture - Preliminary Culture in Progress - Diagnostic Impressions Diagnostic Impressions: Echocardiogram 05/08/20 13:11 Transthoracic Echocardiogram Indication: Endocarditis BP: 122/57 HR: 79 Conclusions *The left ventricular chamber size is normal. *Global left ventricular wall motion and contractility are within normal limits. *Global left ventricular systolic function is normal. *The estimated ejection fraction is 55-60%. *Abnormal left ventricular diastolic filling is observed, consistent with impaired relaxation. *The left atrial chamber size is normal. *The right ventricular cavity size is normal. *There is mitral annular calcification. *The right ventricular systolic pressure is calculated at 26 mmHg. *No obvious vegetations noted. Findings Left Ventricle: The left ventricular chamber size is normal. Global left ventricular wall motion and contractility are within normal limits. Global left ventricular systolic function is normal. The estimated ejection fraction is 55-60%. Abnormal left ventricular diastolic filling is observed, consistent with impaired relaxation. Left Atrium: The left atrial chamber size is normal. Right Ventricle: The right ventricular cavity size is normal. Right Atrium: The right atrial cavity size is normal. Aortic Valve: Mild aortic leaflet calcification is visualized. There is no evidence of aortic regurgitation. Mitral Valve: There is mitral annular calcification. Mild mitral leaflet calcification is visualized. There is trace of mitral regurgitation. Tricuspid Valve: The tricuspid valve leaflets are normal. There is trace tricuspid regurgitation. The right ventricular systolic pressure is calculated at 26 mmHg. Pulmonic Valve: The pulmonic valve appears normal. There is trace pulmonic regurgitation. Pericardium: There is no pericardial effusion. Aorta: The aorta appears normal. Venous: The inferior vena cava appears normal. Measurements Chambers 2D Name Value Normal Range IVSd (2D) 1.04 cm (0.6 - 1.1) LVPWd (2D) 1.07 cm (0.6 - 1.1) LVIDd (2D) 4.91 cm (3.7 - 5.6) LVIDs (2D) 3.35 cm (2 - 3.8) LV FS (2D) 31.74 % - EF Teichholz (2D) 59.57 % - Ao root diameter (2D) 3.16 cm (2 - 3.7) Volumes/Mass Name Value Normal Range LA ESV SP 4CH (A/L) 19.49 ml - LA ESV SP 2CH (A/L) 32.44 ml - LA ESV BP (A/L) 27.53 ml - LA ESV BP (A/L) index 14.88 ml/m2 - LA ESV SP 4CH (MOD) 19.11 ml - LA ESV SP 2CH (MOD) 30.88 ml - LA ESV BP (MOD) 26.52 ml - LA ESV BP (MOD) index 14.34 ml/m2 - Diastolic/Systolic Function Name Value Normal Range MV E-wave Vmax 0.7 m/sec - MV deceleration time 237.16 msec - MV A-wave Vmax 0.97 m/sec - MV E:A ratio 0.72 ratio - Aortic Valve Name Value Normal Range AV Vmax 1.46 m/sec - AV VTI 29.89 cm - AV peak gradient 8.54 mmHg - AV mean gradient 4.54 mmHg - LVOT diameter 2.07 cm - LVOT Vmax 1.26 m/sec - LVOT VTI 25.36 cm - LVOT peak gradient 6.4 mmHg - LVOT mean gradient 3.45 mmHg - SV LVOT 85.3 ml - LINDA (continuity Vmax) 2.91 cm2 - LINDA (continuity VTI) 2.85 cm2 - Mitral Valve Name Value Normal Range MR Vmax 4.4 m/sec - Tricuspid Valve Name Value Normal Range TR Vmax 2.42 m/sec - TR peak gradient 23 mmHg - RAP 3 mmHg - RVSP 26 mmHg - IVC diameter 2.26 cm (1.2 - 2.3) Pulmonic Valve/Qp:Qs Name Value Normal Range PV Vmax 0.72 m/sec - PV peak gradient 2.09 mmHg - WA end-diastolic Vmax 0.91 m/sec - PV acceleration time 98.95 msec - Richard/IV: Voiding Method Toilet IV Catheter Type [Left Upper INT / Saline Lock arm] IV Catheter Type [Left Forearm INT / Saline Lock ] IV Catheter Type [Left Hand] INT / Saline Lock Active Medications - Current Medications Current Medications: Generic Name Dose Route Start Last Admin Trade Name Freq PRN Reason Stop Dose Admin Acetaminophen 650 mg 05/06/20 18:33 05/09/20 10:42 Tylenol PO 650 mg Q4H PRN Administration Pain MILD(1-3)/Fever >100.5/VOGEL Al Hydrox/Mg Hydrox/Simethicone 30 ml 05/07/20 13:35 05/07/20 13:55 Alum-Mag Hydrox-Simeth [phone]/5ml PO 30 ml Q4H PRN Administration Indigestion Azithromycin 500 mg 05/08/20 10:00 05/09/20 10:43 Zithromax PO 05/11/20 10:01 500 mg QDAY ANGE Administration Donepezil HCl 5 mg 05/07/20 22:00 05/08/20 21:02 Aricept PO 5 mg QHS ANGE Administration Guaifenesin 200 mg 05/07/20 20:12 05/09/20 10:43 Robitussin PO 200 mg Q6H PRN Administration Cough Ceftriaxone Sodium 2 gm in 100 mls @ 200 mls/hr 05/08/20 12:00 05/09/20 10:42 Rocephin/Ns 2 Gm/100 Ml IV 05/10/20 10:29 200 mls/hr Q24HR ANGE Administration Protocol Vancomycin HCl 1,250 mg/ 275 mls @ 166.667 mls/hr 05/09/20 12:00 Sodium Chloride IV Q18H ANGE Methylprednisolone Sodium Succinate 40 mg 05/07/20 22:00 05/09/20 05:48 Solu-Medrol IV 40 mg Q8H ANGE Administration Nicotine 14 mg 05/07/20 11:00 05/09/20 10:42 Habitrol TD 14 mg QDAY ANGE Administration Ondansetron HCl 4 mg 05/07/20 10:19 05/07/20 11:13 Zofran IV 4 mg Q4H PRN Administration Nausea And Vomiting Pantoprazole Sodium 40 mg 05/06/20 22:00 05/09/20 10:43 Protonix PO 40 mg BID ANGE Administration Quetiapine Fumarate 400 mg 05/07/20 22:00 05/08/20 21:02 Seroquel PO 400 mg HS ANGE Administration Sodium Chloride 10 ml 05/06/20 22:00 05/09/20 10:44 Sodium Chloride Flush Syringe 10 Ml IV 10 ml BID ANGE Administration Sodium Chloride 10 ml 05/06/20 18:33 Sodium Chloride Flush Syringe 10 Ml IV PRN PRN LINE FLUSH Tramadol HCl 50 mg 05/07/20 13:34 05/09/20 05:53 Ultram PO 50 mg Q6H PRN Administration Pain, Moderate (4-6) Nutrition/Malnutrition Assess - Dietary Evaluation Nutrition/Malnutrition Findings: Nutrition Notes Start: 05/07/20 10:32 Freq: Status: Active Protocol: Document 05/07/20 10:32 LM (Rec: 05/07/20 10:42 LM [id number]) Nutrition Notes Need for Assessment generated from: MD Order,operations support representative,MST Initial or Follow up Assessment Current Diagnosis COPD,Hypertension,Respiratory Failure Other Pertinent Diagnosis Suspected COVID-19, pneu, duodinitis, UTI, nicotine dependence Current Diet cardiac Labs/Tests Reviewed Pertinent Medications Solu-Medrol Height 5 ft 3 in Weight 81.64 kg [place] Body Weight (kg) 52.27 BMI 31.8 Weight Status Obese Subjective/Other Information conuslt for ONS and RN screen for MST. Pt stated that she sometimes has poor appetite and nausea. Pt stated she currently feels nauseous. Pt stated she has lost and gained wt in the past but with no recent wt loss. Pt stated her UBW is 140lb (pt's current wt in chart is 180lb). Burn Absent Trauma Absent GI Symptoms Nausea Minimum of two criteria No Energy Intake (non-severe) <75% Estimated Energy Requirement >7 days #1 Nutrition Diagnosis Inadequate oral intake Etiology decreased appetite, chronic illness, nausea As Evidenced by Signs and Symptoms Pt statement of not eating well at home Is patient on ventilator? No Is Patient Ambulatory and/or Out of Bed Yes REE-([facility]-ambulatory/OOB) [ 9516.689 NUTR.MSJOOB] Kcal/Kg value to use for calculation 18 Approximate Energy Requirements Using 1470 kcal/Kg Calculation Used for Recommendations Kcal/kg Additional Notes Protein: 67-80g (1-1.2g/ kgusing AdjBW 67kg) Fluid: 1ml/kcal or per MD Nutrition Intervention Change Diet Order: continue Add Supplement/Snack (indicate name/kcal Ensure Enlive daily /protein ) Provides kCal: 350 Provides Protein (gm) 20 Goal #1 Meet at least 75% of energy and protein needs Anticipated Discharge Needs: cardiac Follow-Up By: 05/10/20 Additional Comments F/U for PO/ONS intakes
--- NOTE | 2020-05-09 13:35 | Vascular Lab Report ---
DUPLEX DOPPLER LOWER EXTREMITY VEINS, LEFT INDICATION / CLINICAL INFORMATION: DVT. MRSA. TECHNIQUE: Duplex doppler imaging was performed through the veins of the left lower extremity using venous compr ession and other maneuvers. COMPARISON: None available. FINDINGS: LEFT COMMON FEMORAL VEIN: Negative. LEFT FEMORAL VEIN: Negative. LEFT POPLITEAL VEIN: Negative. LEFT CALF VEINS: Negative. ADDITIONAL FINDINGS: None. IMPRESSION: 1. No sonographic evidence for DVT in the left lower extremity. Signer Name: Du Rosenthal MD Signed: 05/09/2020 1:31 PM Workstation Name: [id number]
[2020-05-09] MEDS: VANCOMYCIN 1,250 MG in SODIUM CHLORIDE 0.9% 250ML 250 ML IV SCH (14:28)
[2020-05-09] MEDS: HEPARIN 5,000 UNIT/1 ML VIAL SUB-Q SCH ×2 (14:29→21:38)
--- NOTE | 2020-05-09 14:30 | Progress Note ---
Assessment and Plan Cultures: 05/06/2020 blood culture: MRSA 05/06/2020 urine culture: MRSA COVID-19 PCR: Negative 05/08/2020 blood culture: in process A/P: 69-year-old female with hypertension, gastroesophageal reflux disease, vascular dementia, COPD on chronic home oxygen was admitted to the hospital with complaints of abdominal pain and nausea along with vomiting for the past few days: #MRSA bacteremia: Source unclear, possibly pneumonia. Patient with b/l TKA, R RAQUEL. No intra-vascular prosthetic material. TTE without obvious vegetations or valvular disease. #Bilateral patchy pneumonia: COVID-19 negative. Procalcitonin is elevated. #COPD with acute on chronic respiratory failure: On supplemental oxygen. Also on steroids. #Duodenitis: Continue supportive care. On Protonix. Would not treat for presumptive H. pylori without a positive test. Recs: Xray of b/l knee Continue IV Vancomycin, target trough: 10-20 mcg/ml (preferably around 15) other abx not needed f/u repeat blood cultures Faraz Bauer MD, FACP [facility] ([facility] C: [phone] O: [phone] F: [phone] Subjective Date of service: 05/09/20 Interval history: No fever. Denies any complaints. Wondering when can she go home. I told her she has MRSA bacteremia, will need to stay at least for a few more days till we locate possible source. Objective - Exam Narrative Exam: Physical Exam: Constitutional: Alert, cooperative. No acute distress Head, Ears, Nose: Normocephalic, atraumatic. External ears, nose normal Eyes: Conjunctivae/corneas clear. No icterus. No ptosis. Neck: Supple, no meningeal signs Cardiovascular: S1, S2 normal. Respiratory: few rhonchi bilaterally GI: Soft, non-tender; bowel sounds normal. No peritoneal signs Musculoskeletal: No pedal edema, no cyanosis. b/l TKA, L with mild swelling, no significant warmth or tenderness. R RAQUEL + Skin: No rash or abscess Hem/Lymphatic: No palpable cervical or supraclavicular nodes. No lymphangitis Psych: Mood ok. Affect normal Neurological: Awake, alert, oriented. No gross abnormality - Constitutional Vitals: Vital Signs Temp Pulse Resp BP Pulse Ox 97.9 F 75 20 111/66 95 05/09/20 06:01 05/08/20 20:31 05/09/20 06:01 05/09/20 06:01 05/09/20 07:37 Temperature -Last 24 Hours Temperature 97.9 F Temperature 98.2 F - Labs CBC & Chem 7: 05/07/20 07:00 05/07/20 07:00
--- NOTE | 2020-05-09 16:22 | XRay Report ---
BILATERAL KNEES 6 VIEWS INDICATION / CLINICAL INFORMATION: knee pain. MRSA bacteremia. Hardware +. COMPARISON: None available. FINDINGS: Bilateral knee prostheses are present and appear to be in normal alignment. No other significant skel etal abnormality. Signer Name: Damien Bauer MD FACR Signed: 05/09/2020 4:18 PM Workstation Name: [id number]
[2020-05-09] MEDS: QUEtiapine 200 MG TAB PO SCH (21:35)
[2020-05-09] MEDS: DONEPEZIL 5 MG TAB PO SCH (21:36)
[2020-05-10] MEDS: VANCOMYCIN 1,250 MG in SODIUM CHLORIDE 0.9% 250ML 250 ML IV SCH ×2 (06:23→23:15)
[2020-05-10] MEDS: methylPREDNISolone Sod Succinate 40 MG/1 ML INJ IV SCH ×2 (06:23→21:56)
[2020-05-10] MEDS: HEPARIN 5,000 UNIT/1 ML VIAL SUB-Q SCH ×3 (06:24→21:57)
[2020-05-10 09:59] LABS: Hematocrit 29.5 % (30.3-42.9); Hemoglobin 9.8 gm/dl (10.1-14.3); Mean Corpuscular HGB Conc 33 % (30-34); Mean Corpuscular Volume 91 fl (79-97); Red Blood Count 3.24 M/mm3 (3.65-5.03); Red Cell Distribution Width 14.9 % (13.2-15.2)
[2020-05-10 10:05] LABS: Alanine Aminotransferase 29 units/L (7-56); Albumin 2.8 g/dL (3.9-5); Blood Urea Nitrogen 21 mg/dL (7-17); Calcium 8.2 mg/dL (8.4-10.2); Hemolysis Index 95
[2020-05-10] MEDS: traMADol 50 MG TAB PO PRN ×2 (10:20→20:23)
[2020-05-10] MEDS: PANTOPRAZOLE 40 MG TAB PO SCH ×2 (10:20→21:57)
[2020-05-10] MEDS: NICOTINE 14 MG/24 HR PATCH TD SCH (10:21)
[2020-05-10 10:45] LABS: BUN/Creatinine Ratio 42
[2020-05-10 10:57] LABS: Band Neutrophils # (Manual) 0.6 K/mm3; Basophils % (Manual) 0 % (0.0-1.8); Eosinophils % (Manual) 0 % (0.0-4.3); Myelocytes # (Manual) 0.1 K/mm3; Total Cells Counted 100
[2020-05-10 10:58] LABS: Platelet Clumps Rare; Platelet Estimate Consistent w Auto; RBC Morphology Normal
[2020-05-10 11:00] LABS: Platelet Count 233 K/mm3 (140-440)
--- NOTE | 2020-05-10 13:33 | Progress Note ---
Assessment and Plan Cultures: 05/06/2020 blood culture: MRSA 05/06/2020 urine culture: MRSA COVID-19 PCR: Negative 05/08/2020 blood culture: in process A/P: 69-year-old female with hypertension, gastroesophageal reflux disease, vascular dementia, COPD on chronic home oxygen was admitted to the hospital with complaints of abdominal pain and nausea along with vomiting for the past few days: #MRSA bacteremia: Source unclear, possibly pneumonia. Patient with b/l TKA, R RAQUEL. No back pain, no joint pain. No intra-vascular prosthetic material. TTE without obvious vegetations or valvular disease. Xray of b/l knee unremarkable. #Bilateral patchy pneumonia: COVID-19 negative. Procalcitonin is elevated. #COPD with acute on chronic respiratory failure: On supplemental oxygen. Also on steroids. #Duodenitis: Continue supportive care. On Protonix. Would not treat for presumptive H. pylori without a positive test. Recs: Continue IV Vancomycin, target trough: 10-20 mcg/ml (preferably around 15) f/u repeat blood cultures, once negative for 48 hours, will place PICC line and plan for 6 weeks of IV abx. Patient prefers home antibiotics, states she will have difficulty getting transportation to the infusion center. Faraz Bauer MD, FACP [facility] ([facility] C: [phone] O: [phone] F: [phone] Subjective Date of service: 05/10/20 Interval history: No fever. Denies any complaints. No joint pain, no significant back pain. Objective - Exam Narrative Exam: Physical Exam: Constitutional: Alert, cooperative. No acute distress Head, Ears, Nose: Normocephalic, atraumatic. External ears, nose normal Eyes: Conjunctivae/corneas clear. No icterus. No ptosis. Neck: Supple, no meningeal signs Cardiovascular: S1, S2 normal. Respiratory: few rhonchi bilaterally GI: Soft, non-tender; bowel sounds normal. No peritoneal signs Musculoskeletal: No pedal edema, no cyanosis. b/l TKA, L with mild swelling, no significant warmth or tenderness. R RAQUEL + Skin: No rash or abscess Hem/Lymphatic: No palpable cervical or supraclavicular nodes. No lymphangitis Psych: Mood ok. Affect normal Neurological: Awake, alert, oriented. No gross abnormality - Constitutional Vitals: Vital Signs Temp Pulse Resp BP Pulse Ox 97.8 F 80 18 134/76 98 05/10/20 06:33 05/10/20 06:33 05/10/20 06:33 05/10/20 06:33 05/10/20 10:00 Temperature -Last 24 Hours Temperature 97.8 F Temperature 97.9 F Temperature 97.5 F - Labs CBC & Chem 7: 05/10/20 09:15 05/10/20 09:15 Labs: Abnormal lab results 05/10/20 05/10/20 Range/Units 09:15 09:15 WBC 12.7 H (4.5-11.0) K/mm3 RBC 3.24 L (3.65-5.03) M/mm3 Hgb 9.8 L (10.1-14.3) gm/dl Hct 29.5 L (30.3-42.9) % Seg Neuts % (Manual) 74.0 H (40.0-70.0) % Lymphocytes % (Manual) 5.0 L (13.4-35.0) % Seg Neutrophils # Man 9.4 H (1.8-7.7) K/mm3 Lymphocytes # (Manual) 0.6 L (1.2-5.4) K/mm3 Potassium 5.2 H (3.6-5.0) mmol/L BUN 21 H (7-17) mg/dL Creatinine 0.5 L (0.6-1.2) mg/dL Glucose 102 H (65-100) mg/dL Calcium 8.2 L (8.4-10.2) mg/dL Total Protein 6.1 L (6.3-8.2) g/dL Albumin 2.8 L (3.9-5) g/dL
[2020-05-10] MEDS: IPRATROPIUM 0.02% NEBU 2.5 ML IH SCH ×2 (14:08→20:55)
--- NOTE | 2020-05-10 16:14 | Progress Note ---
Assessment and Plan Assessment and plan: 69 YO Female with HTN, GERD, HCV, OA, Depression, COPD, Vascular Dementia, JUANITA on CPAP, Nicotine Dependence, Chronic Respiratory Failure on 3L Home Oxygen who presented to ED for evaluation of worsening shortness of breath, weakness, abdominal discomfort, nausea, multiple episodes of vomiting, malaise, decreased exercise tolerance 3 days prior to presentation. Upon arrival of the EMS, the patient was found to be in distress and the patient was subsequently transported to [facility] for further care and evaluation. Pt seen and evaluated in ED. Chest x-ray revealed bilateral pneumonia. The patient was found to have acute on Chronic Hypoxemic Respiratory Failure requiring increase in supplemental oxygen requirement, as well as urinary tract infection. A CT scan of the abdomen and pelvis was conducted and the patient was found to have evidence of duodenitis. Patient initiated on COVID-19 protocol in the emergency department. Infectious disease service consulted in ED. 05/09. Patient noted to have staph bacteremia. ID on board. Patient is on vancomycin, ceftriaxone and azithromycin. Repeat blood cultures have been sent. Transthoracic echocardiogram performed showed no endocarditis.COVID-19 test is negative 05/10. Repeat blood culture is negative till date. On vancomycin. Ceftriaxone and azithromycin dced. ID recs appreciated. Discussed with patients daughter Violet ([phone]) today. - Patient Problems (1) Bilateral pneumonia Current Visit: Yes Status: Acute Plan to address problem: ID is on board Continue vancomycin Repeat BC negative till date Pulmonology follow-up at discharge Needs to have a repeat chest imaging in 2-3 weeks after discharge to reevaluate. (2) COPD exacerbation Onset Date: 10/14/13 Current Visit: Yes Status: Acute Plan to address problem: Taper solumedrol Bronchodilators Pulmonology follow-up at discharge (3) Duodenitis Current Visit: Yes Status: Acute (4) UTI (urinary tract infection) Current Visit: Yes Status: Acute Qualifiers: Encounter type: initial encounter (5) Acute on chronic respiratory failure with hypoxemia Current Visit: No Status: Acute (6) Staphylococcus aureus bacteremia Current Visit: Yes Status: Acute Plan to address problem: No sepsis. Repeat blood cultures have been sent - NTD Continue vancomycin Transthoracic echocardiogram shows no endocarditis. May need a QUINCY (7) Staphylococcus aureus infection Current Visit: Yes Status: Acute Plan to address problem: On vancomycin. TTE negative Repeat BC is NTD ID following (8) Elevated d-dimer Current Visit: Yes Status: Acute Plan to address problem: US LE doppler - negative for DVT She has an IV filter. Doubt any PE at this time. (9) DVT prophylaxis Current Visit: Yes Status: Acute Plan to address problem: Heparin/Lovenox History Interval history: See assessment and plan Hospitalist Physical - Constitutional Vitals: Temp Pulse Resp BP Pulse Ox 97.8 F 93 H 20 134/76 98 05/10/20 06:33 05/10/20 14:08 05/10/20 14:08 05/10/20 06:33 05/10/20 10:00 General appearance: Present: no acute distress, obese - Neck Neck: Present: supple, normal ROM - Respiratory Respiratory: negative: wheezing (trace) - Cardiovascular Heart Sounds: Present: S1 & S2 - Abdominal General gastrointestinal: soft, non-tender, non-distended - Psychiatric Psychiatric: appropriate mood/affect - Neurologic Neurologic: CNII-XII intact Results - Labs CBC & Chem 7: 05/10/20 09:15 05/10/20 09:15 Labs: Laboratory Last Values WBC 12.7 K/mm3 (4.5-11.0) H 05/10/20 09:15 RBC 3.24 M/mm3 (3.65-5.03) L 05/10/20 09:15 Hgb 9.8 gm/dl (10.1-14.3) L 05/10/20 09:15 Hct 29.5 % (30.3-42.9) L 05/10/20 09:15 MCV 91 fl (79-97) 05/10/20 09:15 MCH 30 pg (28-32) 05/10/20 09:15 MCHC 33 % (30-34) 05/10/20 09:15 RDW 14.9 % (13.2-15.2) 05/10/20 09:15 Plt Count 233 K/mm3 (140-440) 05/10/20 09:15 Lymph % (Auto) [employer] Operator 05/10/20 09:15 [place] % (Auto) [employer] Operator 05/10/20 09:15 Eos % (Auto) [employer] Operator 05/10/20 09:15 Baso % (Auto) [employer] Operator 05/10/20 09:15 Lymph # [employer] Operator 05/10/20 09:15 [place] # [employer] Operator 05/10/20 09:15 Eos # [employer] Operator 05/10/20 09:15 Baso # [employer] Operator 05/10/20 09:15 Add Manual Diff Complete 05/10/20 09:15 Total Counted 100 05/10/20 09:15 Seg Neutrophils % [employer] Operator 05/10/20 09:15 Seg Neuts % (Manual) 74.0 % (40.0-70.0) H 05/10/20 09:15 Band Neutrophils % 5.0 % 05/10/20 09:15 Lymphocytes % (Manual) 5.0 % (13.4-35.0) L 05/10/20 09:15 Reactive Lymphs % (Man) 1.0 % 05/10/20 09:15 Monocytes % (Manual) 6.0 % (0.0-7.3) 05/10/20 09:15 Eosinophils % (Manual) 0 % (0.0-4.3) 05/10/20 09:15 Basophils % (Manual) 0 % (0.0-1.8) 05/10/20 09:15 Metamyelocytes % 8.0 % 05/10/20 09:15 Myelocytes % 1.0 % 05/10/20 09:15 Promyelocytes % 0 % 05/10/20 09:15 Blast Cells % 0 % 05/10/20 09:15 Nucleated RBC % Not Reportable 05/10/20 09:15 Seg Neutrophils # [employer] Operator 05/10/20 09:15 Seg Neutrophils # Man 9.4 K/mm3 (1.8-7.7) H 05/10/20 09:15 Band Neutrophils # 0.6 K/mm3 05/10/20 09:15 Lymphocytes # (Manual) 0.6 K/mm3 (1.2-5.4) L 05/10/20 09:15 Abs React Lymphs (Man) 0.1 K/mm3 05/10/20 09:15 Monocytes # (Manual) 0.8 K/mm3 (0.0-0.8) 05/10/20 09:15 Eosinophils # (Manual) 0.0 K/mm3 (0.0-0.4) 05/10/20 09:15 Basophils # (Manual) 0.0 K/mm3 (0.0-0.1) 05/10/20 09:15 Metamyelocytes # 1.0 K/mm3 05/10/20 09:15 Myelocytes # 0.1 K/mm3 05/10/20 09:15 Promyelocytes # 0.0 K/mm3 05/10/20 09:15 Blast Cells # 0.0 K/mm3 05/10/20 09:15 WBC Morphology Not Reportable 05/10/20 09:15 Hypersegmented Neuts Not Reportable 05/10/20 09:15 Hyposegmented Neuts Not Reportable 05/10/20 09:15 Hypogranular Neuts Not Reportable 05/10/20 09:15 Smudge Cells Not Reportable 05/10/20 09:15 Toxic Granulation Not Reportable 05/10/20 09:15 Toxic Vacuolation Not Reportable 05/10/20 09:15 Dohle Bodies Not Reportable 05/10/20 09:15 Pelger-Huet Anomaly Not Reportable 05/10/20 09:15 Dianne Rods Not Reportable 05/10/20 09:15 Platelet Estimate Consistent w auto 05/10/20 09:15 Clumped Platelets Rare 05/10/20 09:15 Plt Clumps, EDTA Not Reportable 05/10/20 09:15 Large Platelets Not Reportable 05/10/20 09:15 Giant Platelets Not Reportable 05/10/20 09:15 Platelet Satelliting Not Reportable 05/10/20 09:15 Plt Morphology Comment Not Reportable 05/10/20 09:15 RBC Morphology Normal 05/10/20 09:15 Dimorphic RBCs Not Reportable 05/10/20 09:15 Polychromasia Not Reportable 05/10/20 09:15 Hypochromasia Not Reportable 05/10/20 09:15 Poikilocytosis Not Reportable 05/10/20 09:15 Anisocytosis Not Reportable 05/10/20 09:15 Microcytosis Not Reportable 05/10/20 09:15 Macrocytosis Not Reportable 05/10/20 09:15 Spherocytes Not Reportable 05/10/20 09:15 Pappenheimer Bodies Not Reportable 05/10/20 09:15 Sickle Cells Not Reportable 05/10/20 09:15 Target Cells Not Reportable 05/10/20 09:15 Tear Drop Cells Not Reportable 05/10/20 09:15 Ovalocytes Not Reportable 05/10/20 09:15 Helmet Cells Not Reportable 05/10/20 09:15 [place] Bodies Not Reportable 05/10/20 09:15 [place] Rings Not Reportable 05/10/20 09:15 Raj Cells Not Reportable 05/10/20 09:15 Bite Cells Not Reportable 05/10/20 09:15 Crenated Cell Not Reportable 05/10/20 09:15 Elliptocytes Not Reportable 05/10/20 09:15 Acanthocytes (Spur) Not Reportable 05/10/20 09:15 Rouleaux Not Reportable 05/10/20 09:15 Hemoglobin C Crystals Not Reportable 05/10/20 09:15 Schistocytes Not Reportable 05/10/20 09:15 Malaria parasites Not Reportable 05/10/20 09:15 Rah Bodies Not Reportable 05/10/20 09:15 Hem Pathologist Commnt No 05/10/20 09:15 PT 15.4 Sec. (12.2-14.9) H 05/06/20 15:54 INR 1.19 (0.87-1.13) H 05/06/20 15:54 APTT 25.4 Sec. (24.2-36.6) 05/06/20 15:54 D-Dimer 2749.54 ng/mlDDU (0-234) H 05/06/20 18:25 Sodium 140 mmol/L (137-145) 05/10/20 09:15 Potassium 5.2 mmol/L (3.6-5.0) H 05/10/20 09:15 Chloride 101.2 mmol/L (98-107) 05/10/20 09:15 Carbon Dioxide 25 mmol/L (22-30) 05/10/20 09:15 Anion Gap 19 mmol/L 05/10/20 09:15 BUN 21 mg/dL (7-17) H 05/10/20 09:15 Creatinine 0.5 mg/dL (0.6-1.2) L 05/10/20 09:15 Estimated GFR > 60 ml/min 05/10/20 09:15 BUN/Creatinine Ratio 42 % 05/10/20 09:15 Glucose 102 mg/dL (65-100) H 05/10/20 09:15 POC Glucose 138 (70-105) H 05/06/20 22:48 Calcium 8.2 mg/dL (8.4-10.2) L 05/10/20 09:15 Ferritin 880.5 ng/mL (10.0-200.0) H 05/06/20 18:25 Total Bilirubin 0.30 mg/dL (0.1-1.2) 05/10/20 09:15 AST 27 units/L (5-40) 05/10/20 09:15 ALT 29 units/L (7-56) 05/10/20 09:15 Alkaline Phosphatase 77 units/L (35-129) 05/10/20 09:15 Lactate Dehydrogenase 212 units/L (91-180) H 05/06/20 18:25 C-Reactive Protein 28.40 mg/dL (0.00-1.30) H 05/06/20 18:25 Total Protein 6.1 g/dL (6.3-8.2) L 05/10/20 09:15 Albumin 2.8 g/dL (3.9-5) L 05/10/20 09:15 Albumin/Globulin Ratio 0.8 % 05/10/20 09:15 Lipase 10 units/L (13-60) L 05/06/20 15:54 Procalcitonin 1.89 ng/mL (<0.15) 05/06/20 18:25 Urine Color Corazon (Yellow) 05/06/20 Unknown Urine Turbidity Slightly-cloudy (Clear) 05/06/20 Unknown Urine pH 5.0 (5.0-7.0) 05/06/20 Unknown Ur Specific [place] 1.029 (1.003-1.030) 05/06/20 Unknown Urine Protein >500 mg/dL (Negative) 05/06/20 Unknown Urine Glucose (UA) Neg mg/dL (Negative) 05/06/20 Unknown Urine Ketones Neg mg/dL (Negative) 05/06/20 Unknown Urine Blood Mod (Negative) 05/06/20 Unknown Urine Nitrite Neg (Negative) 05/06/20 Unknown Urine Bilirubin Sm (Negative) 05/06/20 Unknown Urine Ictotest Positive (Negative) 05/06/20 Unknown Urine Urobilinogen 4.0 mg/dL (<2.0) 05/06/20 Unknown Ur Leukocyte Esterase Tr (Negative) 05/06/20 Unknown Urine WBC (Auto) 29.0 /HPF (0.0-6.0) H 05/06/20 Unknown Urine RBC (Auto) 5.0 /HPF (0.0-6.0) 05/06/20 Unknown U Epithel Cells (Auto) 3.0 /HPF (0-13.0) 05/06/20 Unknown Urine Mucus 2+ /HPF 05/06/20 Unknown Coronavirus (PCR) Negative (Negative) 05/07/20 08:18 Microbiology: Microbiology 05/08/20 19:20 Peripheral/Venous Blood Culture - Preliminary NO GROWTH AFTER 24 HOURS 05/08/20 19:20 Peripheral/Venous Blood Culture - Preliminary NO GROWTH AFTER 24 HOURS - Diagnostic Impressions Diagnostic Impressions: Echocardiogram 05/08/20 13:11 Transthoracic Echocardiogram Indication: Endocarditis BP: 122/57 HR: 79 Conclusions *The left ventricular chamber size is normal. *Global left ventricular wall motion and contractility are within normal limits. *Global left ventricular systolic function is normal. *The estimated ejection fraction is 55-60%. *Abnormal left ventricular diastolic filling is observed, consistent with impaired relaxation. *The left atrial chamber size is normal. *The right ventricular cavity size is normal. *There is mitral annular calcification. *The right ventricular systolic pressure is calculated at 26 mmHg. *No obvious vegetations noted. Findings Left Ventricle: The left ventricular chamber size is normal. Global left ventricular wall motion and contractility are within normal limits. Global left ventricular systolic function is normal. The estimated ejection fraction is 55-60%. Abnormal left ventricular diastolic filling is observed, consistent with impaired relaxation. Left Atrium: The left atrial chamber size is normal. Right Ventricle: The right ventricular cavity size is normal. Right Atrium: The right atrial cavity size is normal. Aortic Valve: Mild aortic leaflet calcification is visualized. There is no evidence of aortic regurgitation. Mitral Valve: There is mitral annular calcification. Mild mitral leaflet calcification is visualized. There is trace of mitral regurgitation. Tricuspid Valve: The tricuspid valve leaflets are normal. There is trace tricuspid regurgitation. The right ventricular systolic pressure is calculated at 26 mmHg. Pulmonic Valve: The pulmonic valve appears normal. There is trace pulmonic regurgitation. Pericardium: There is no pericardial effusion. Aorta: The aorta appears normal. Venous: The inferior vena cava appears normal. Measurements Chambers 2D Name Value Normal Range IVSd (2D) 1.04 cm (0.6 - 1.1) LVPWd (2D) 1.07 cm (0.6 - 1.1) LVIDd (2D) 4.91 cm (3.7 - 5.6) LVIDs (2D) 3.35 cm (2 - 3.8) LV FS (2D) 31.74 % - EF Teichholz (2D) 59.57 % - Ao root diameter (2D) 3.16 cm (2 - 3.7) Volumes/Mass Name Value Normal Range LA ESV SP 4CH (A/L) 19.49 ml - LA ESV SP 2CH (A/L) 32.44 ml - LA ESV BP (A/L) 27.53 ml - LA ESV BP (A/L) index 14.88 ml/m2 - LA ESV SP 4CH (MOD) 19.11 ml - LA ESV SP 2CH (MOD) 30.88 ml - LA ESV BP (MOD) 26.52 ml - LA ESV BP (MOD) index 14.34 ml/m2 - Diastolic/Systolic Function Name Value Normal Range MV E-wave Vmax 0.7 m/sec - MV deceleration time 237.16 msec - MV A-wave Vmax 0.97 m/sec - MV E:A ratio 0.72 ratio - Aortic Valve Name Value Normal Range AV Vmax 1.46 m/sec - AV VTI 29.89 cm - AV peak gradient 8.54 mmHg - AV mean gradient 4.54 mmHg - LVOT diameter 2.07 cm - LVOT Vmax 1.26 m/sec - LVOT VTI 25.36 cm - LVOT peak gradient 6.4 mmHg - LVOT mean gradient 3.45 mmHg - SV LVOT 85.3 ml - LINDA (continuity Vmax) 2.91 cm2 - LINDA (continuity VTI) 2.85 cm2 - Mitral Valve Name Value Normal Range MR Vmax 4.4 m/sec - Tricuspid Valve Name Value Normal Range TR Vmax 2.42 m/sec - TR peak gradient 23 mmHg - RAP 3 mmHg - RVSP 26 mmHg - IVC diameter 2.26 cm (1.2 - 2.3) Pulmonic Valve/Qp:Qs Name Value Normal Range PV Vmax 0.72 m/sec - PV peak gradient 2.09 mmHg - DC end-diastolic Vmax 0.91 m/sec - PV acceleration time 98.95 msec - Richard/IV: Voiding Method Toilet IV Catheter Type [Right Upper INT / Saline Lock arm] IV Catheter Type [Left Upper INT / Saline Lock arm] IV Catheter Type [Left Forearm INT / Saline Lock ] IV Catheter Type [Left Hand] INT / Saline Lock Active Medications - Current Medications Current Medications: Generic Name Dose Route Start Last Admin Trade Name Freq PRN Reason Stop Dose Admin Acetaminophen 650 mg 05/06/20 18:33 05/09/20 18:38 Tylenol PO 650 mg Q4H PRN Administration Pain MILD(1-3)/Fever >100.5/VOGEL Al Hydrox/Mg Hydrox/Simethicone 30 ml 05/07/20 13:35 05/07/20 13:55 Alum-Mag Hydrox-Simeth 712-318-10ci/5ml PO 30 ml Q4H PRN Administration Indigestion Donepezil HCl 5 mg 05/07/20 22:00 05/09/20 21:36 Aricept PO 5 mg QHS ANGE Administration Guaifenesin 200 mg 05/07/20 20:12 05/09/20 21:35 Robitussin PO 200 mg Q6H PRN Administration Cough Heparin Sodium (Porcine) 5,000 unit 05/09/20 14:00 05/10/20 14:54 Heparin SUB-Q 5,000 unit Q8HR ANGE Administration Vancomycin HCl 1,250 mg/ 275 mls @ 166.667 mls/hr 05/09/20 12:00 05/10/20 10:30 Sodium Chloride IV Infused Q18H ANGE Infusion Ipratropium [place] 0.5 mg 05/10/20 14:00 05/10/20 14:08 Atrovent IH 0.5 mg Q6HRT ANGE Administration Methylprednisolone Sodium Succinate 40 mg 05/10/20 22:00 Solu-Medrol IV Q12HR ANGE Nicotine 14 mg 05/07/20 11:00 05/10/20 10:21 Habitrol TD 14 mg QDAY ANGE Administration Ondansetron HCl 4 mg 05/07/20 10:19 05/07/20 11:13 Zofran IV 4 mg Q4H PRN Administration Nausea And Vomiting Pantoprazole Sodium 40 mg 05/06/20 22:00 08/26/20 10:20 Protonix PO 40 mg BID ANGE Administration Quetiapine Fumarate 400 mg 05/07/20 22:00 05/09/20 21:35 Seroquel PO 400 mg HS ANGE Administration Sodium Chloride 10 ml 05/06/20 22:00 05/10/20 10:22 Sodium Chloride Flush Syringe 10 Ml IV 10 ml BID ANGE Administration Sodium Chloride 10 ml 05/06/20 18:33 Sodium Chloride Flush Syringe 10 Ml IV PRN PRN LINE FLUSH Tramadol HCl 50 mg 05/07/20 13:34 05/10/20 10:20 Ultram PO 50 mg Q6H PRN Administration Pain, Moderate (4-6) Nutrition/Malnutrition Assess - Dietary Evaluation Nutrition/Malnutrition Findings: Nutrition Notes Start: 05/07/20 10:32 Freq: Status: Active Protocol: Document 05/10/20 15:38 LM (Rec: 05/10/20 15:43 LM [id number]) Nutrition Notes Need for Assessment generated from: MD Order,superintendent recreation,MST Initial or Follow up Reassessment Current Diagnosis COPD,Hypertension,Respiratory Failure Other Pertinent Diagnosis pneu, duodinitis, UTI, nicotine dependence Current Diet cardiac Labs/Tests Reviewed Pertinent Medications Solu-Medrol Height 5 ft 3 in Weight 82.3 kg [place] Body Weight (kg) 52.27 BMI 32.1 Weight Status Obese Subjective/Other Information Unable to reach pt by phone. No intakes in chart today. pt with 75-100% intakes yesterday . Percent of energy/protein needs met: 100%/100% Burn Absent Trauma Absent Minimum of two criteria No Energy Intake (non-severe) <75% Estimated Energy Requirement >7 days #1 Nutrition Diagnosis Inadequate oral intake As Evidenced by Signs and Symptoms pt with 75-100% intakes in chart Diagnosis Progress(for reassessment Improved documentation) Is patient on ventilator? No Is Patient Ambulatory and/or Out of Bed Yes REE-([place]-St. Jeor-ambulatory/OOB) [ 1725.269 [id number]] Kcal/Kg value to use for calculation 18 Approximate Energy Requirements Using 1481 kcal/Kg Calculation Used for Recommendations Kcal/kg Additional Notes Protein: 67-80g (1-1.2g/ kgusing AdjBW 67kg) Fluid: 1ml/kcal or per MD Nutrition Intervention Change Diet Order: continue Add Supplement/Snack (indicate name/kcal D/C /protein ) Goal #1 Meet at least 75% of energy and protein needs Anticipated Discharge Needs: cardiac Follow-Up By: 05/16/20 Additional Comments F/U for stable intakes
[2020-05-10] MEDS: QUEtiapine 200 MG TAB PO SCH (21:56)
[2020-05-10] MEDS: DONEPEZIL 5 MG TAB PO SCH (21:57)
[2020-05-10] MEDS: guaiFENesin 200 MG TAB PO PRN (23:16)
[2020-05-11] MEDS: IPRATROPIUM 0.02% NEBU 2.5 ML IH SCH ×4 (02:08→21:07)
[2020-05-11] MEDS: HEPARIN 5,000 UNIT/1 ML VIAL SUB-Q SCH ×3 (08:11→22:56)
--- NOTE | 2020-05-11 10:58 | XRay Report ---
XR chest 1V ap INDICATION / CLINICAL INFORMATION: R arm PICC placement. COMPARISON: May 06, 2020 FINDINGS: SUPPORT DEVICES: Right PICC terminating in the lower superior vena cava. HEART / MEDIASTINUM: Unchanged. LUNGS / PLEURA: Persistent multifocal bilateral consolidation with a peripheral predilection. Left co stophrenic sulcus is blunted. No pneumothorax. ADDITIONAL FINDINGS: No significant additional findings. IMPRESSION: 1. Persistent bilateral airspace disease most consistent with infection. Suspect a new small left ple ural effusion. Signer Name: Thanh Butler MD Signed: 05/11/2020 10:54 AM Workstation Name: [id number]
[2020-05-11] MEDS: PANTOPRAZOLE 40 MG TAB PO SCH ×2 (11:01→22:55)
[2020-05-11] MEDS: methylPREDNISolone Sod Succinate 40 MG/1 ML INJ IV SCH ×3 (11:01→22:55)
[2020-05-11] MEDS: NICOTINE 14 MG/24 HR PATCH TD SCH (11:01)
[2020-05-11] MEDS: traMADol 50 MG TAB PO PRN ×2 (11:06→22:55)
--- NOTE | 2020-05-11 11:18 | Progress Note ---
Assessment and Plan Assessment and plan: 69 YO Female with HTN, GERD, HCV, OA, Depression, COPD, Vascular Dementia, JUANITA on CPAP, Nicotine Dependence, Chronic Respiratory Failure on 3L Home Oxygen who presented to ED for evaluation of worsening shortness of breath, weakness, abdominal discomfort, nausea, multiple episodes of vomiting, malaise, decreased exercise tolerance 3 days prior to presentation. Upon arrival of the EMS, the patient was found to be in distress and the patient was subsequently transported to [facility] for further care and evaluation. Pt seen and evaluated in ED. Chest x-ray revealed bilateral pneumonia. The patient was found to have acute on Chronic Hypoxemic Respiratory Failure requiring increase in supplemental oxygen requirement, as well as urinary tract infection. A CT scan of the abdomen and pelvis was conducted and the patient was found to have evidence of duodenitis. Patient initiated on COVID-19 protocol in the emergency department. Infectious disease service consulted in ED. 05/09. Patient noted to have staph bacteremia. ID on board. Patient is on vancomycin, ceftriaxone and azithromycin. Repeat blood cultures have been sent. Transthoracic echocardiogram performed showed no endocarditis.COVID-19 test is negative 05/10. Repeat blood culture is negative till date. On vancomycin. Ceftriaxone and azithromycin dced. ID recs appreciated. Discussed with patients daughter Violet ([phone]) today. 05/11. Repeat blood cultures remain negative. PICC line ordered as patient will need 6 days on IV vancomycin. Patient prefers home antibiotics. Possible discharge today if antibiotics set up. Discussed with case finisher - Patient Problems (1) Bilateral pneumonia Current Visit: Yes Status: Acute Plan to address problem: Continue vancomycin. Blood culture remains negative. Plan on 6 weeks IV vancomycin. PICC line ordered ID recommendations appreciated Pulmonology follow-up at discharge Needs to have a repeat chest imaging in 2-3 weeks after discharge to reevaluate. (2) COPD exacerbation Onset Date: 10/14/13 Current Visit: Yes Status: Acute Plan to address problem: Taper solumedrol Bronchodilators Pulmonology follow-up at discharge (3) Duodenitis Current Visit: Yes Status: Acute Plan to address problem: Continue PPI. (4) UTI (urinary tract infection) Current Visit: Yes Status: Acute Qualifiers: Encounter type: initial encounter Plan to address problem: Continue antibiotics (5) Acute on chronic respiratory failure with hypoxemia Current Visit: No Status: Acute Plan to address problem: Continue oxygen supplementation (6) Staphylococcus aureus bacteremia Current Visit: Yes Status: Acute Plan to address problem: TTE negative for endocarditis Continue IV vancomycin. Plan for 6 weeks course PICC line ordered (7) Staphylococcus aureus infection Current Visit: Yes Status: Acute Plan to address problem: On vancomycin. TTE negative Repeat BC is NTD ID following (8) Elevated d-dimer Current Visit: Yes Status: Acute Plan to address problem: US LE doppler - negative for DVT She has an IV filter. Doubt any PE at this time. (9) DVT prophylaxis Current Visit: Yes Status: Acute Plan to address problem: Heparin/Lovenox History Interval history: See assessment and plan Hospitalist Physical - Constitutional Vitals: Temp Pulse Resp BP Pulse Ox 98.2 F 90 18 130/63 97 05/11/20 05:31 05/11/20 10:14 05/11/20 10:14 05/11/20 03:00 05/11/20 10:16 General appearance: Present: no acute distress, obese - EENT Eyes: Present: PERRL - Neck Neck: Present: supple - Respiratory Respiratory effort: normal Respiratory: bilateral: diminished - Cardiovascular Heart Sounds: Present: S1 & S2 - Extremities Extremities: No edema - Abdominal General gastrointestinal: soft, non-tender, non-distended, normal bowel sounds - Psychiatric Psychiatric: appropriate mood/affect - Neurologic Neurologic: CNII-XII intact Results - Labs CBC & Chem 7: 05/10/20 09:15 05/10/20 09:15 Labs: Laboratory Last Values WBC 12.7 K/mm3 (4.5-11.0) H 05/10/20 09:15 RBC 3.24 M/mm3 (3.65-5.03) L 05/10/20 09:15 Hgb 9.8 gm/dl (10.1-14.3) L 05/10/20 09:15 Hct 29.5 % (30.3-42.9) L 05/10/20 09:15 MCV 91 fl (79-97) 05/10/20 09:15 MCH 30 pg (28-32) 05/10/20 09:15 MCHC 33 % (30-34) 05/10/20 09:15 RDW 14.9 % (13.2-15.2) 05/10/20 09:15 Plt Count 233 K/mm3 (140-440) 05/10/20 09:15 Lymph % (Auto) Rewriter 05/10/20 09:15 [place] % (Auto) Rewriter 05/10/20 09:15 Eos % (Auto) Rewriter 05/10/20 09:15 Baso % (Auto) Rewriter 05/10/20 09:15 Lymph # Rewriter 05/10/20 09:15 [place] # Rewriter 05/10/20 09:15 Eos # Rewriter 05/10/20 09:15 Baso # Rewriter 05/10/20 09:15 Add Manual Diff Complete 05/10/20 09:15 Total Counted 100 05/10/20 09:15 Seg Neutrophils % Rewriter 05/10/20 09:15 Seg Neuts % (Manual) 74.0 % (40.0-70.0) H 05/10/20 09:15 Band Neutrophils % 5.0 % 05/10/20 09:15 Lymphocytes % (Manual) 5.0 % (13.4-35.0) L 05/10/20 09:15 Reactive Lymphs % (Man) 1.0 % 05/10/20 09:15 Monocytes % (Manual) 6.0 % (0.0-7.3) 05/10/20 09:15 Eosinophils % (Manual) 0 % (0.0-4.3) 05/10/20 09:15 Basophils % (Manual) 0 % (0.0-1.8) 05/10/20 09:15 Metamyelocytes % 8.0 % 05/10/20 09:15 Myelocytes % 1.0 % 05/10/20 09:15 Promyelocytes % 0 % 05/10/20 09:15 Blast Cells % 0 % 05/10/20 09:15 Nucleated RBC % Not Reportable 05/10/20 09:15 Seg Neutrophils # Rewriter 05/10/20 09:15 Seg Neutrophils # Man 9.4 K/mm3 (1.8-7.7) H 05/10/20 09:15 Band Neutrophils # 0.6 K/mm3 05/10/20 09:15 Lymphocytes # (Manual) 0.6 K/mm3 (1.2-5.4) L 05/10/20 09:15 Abs React Lymphs (Man) 0.1 K/mm3 05/10/20 09:15 Monocytes # (Manual) 0.8 K/mm3 (0.0-0.8) 05/10/20 09:15 Eosinophils # (Manual) 0.0 K/mm3 (0.0-0.4) 05/10/20 09:15 Basophils # (Manual) 0.0 K/mm3 (0.0-0.1) 05/10/20 09:15 Metamyelocytes # 1.0 K/mm3 05/10/20 09:15 Myelocytes # 0.1 K/mm3 05/10/20 09:15 Promyelocytes # 0.0 K/mm3 05/10/20 09:15 Blast Cells # 0.0 K/mm3 05/10/20 09:15 WBC Morphology Not Reportable 05/10/20 09:15 Hypersegmented Neuts Not Reportable 05/10/20 09:15 Hyposegmented Neuts Not Reportable 05/10/20 09:15 Hypogranular Neuts Not Reportable 05/10/20 09:15 Smudge Cells Not Reportable 05/10/20 09:15 Toxic Granulation Not Reportable 05/10/20 09:15 Toxic Vacuolation Not Reportable 05/10/20 09:15 Dohle Bodies Not Reportable 05/10/20 09:15 Pelger-Huet Anomaly Not Reportable 05/10/20 09:15 Dianne Rods Not Reportable 05/10/20 09:15 Platelet Estimate Consistent w auto 05/10/20 09:15 Clumped Platelets Rare 05/10/20 09:15 Plt Clumps, EDTA Not Reportable 05/10/20 09:15 Large Platelets Not Reportable 05/10/20 09:15 Giant Platelets Not Reportable 05/10/20 09:15 Platelet Satelliting Not Reportable 05/10/20 09:15 Plt Morphology Comment Not Reportable 05/10/20 09:15 RBC Morphology Normal 05/10/20 09:15 Dimorphic RBCs Not Reportable 05/10/20 09:15 Polychromasia Not Reportable 05/10/20 09:15 Hypochromasia Not Reportable 05/10/20 09:15 Poikilocytosis Not Reportable 05/10/20 09:15 Anisocytosis Not Reportable 05/10/20 09:15 Microcytosis Not Reportable 05/10/20 09:15 Macrocytosis Not Reportable 05/10/20 09:15 Spherocytes Not Reportable 05/10/20 09:15 Pappenheimer Bodies Not Reportable 05/10/20 09:15 Sickle Cells Not Reportable 05/10/20 09:15 Target Cells Not Reportable 05/10/20 09:15 Tear Drop Cells Not Reportable 05/10/20 09:15 Ovalocytes Not Reportable 05/10/20 09:15 Helmet Cells Not Reportable 05/10/20 09:15 Villa-Cumby Bodies Not Reportable 05/10/20 09:15 Crosby Rings Not Reportable 05/10/20 09:15 Raj Cells Not Reportable 05/10/20 09:15 Bite Cells Not Reportable 05/10/20 09:15 Crenated Cell Not Reportable 05/10/20 09:15 Elliptocytes Not Reportable 05/10/20 09:15 Acanthocytes (Spur) Not Reportable 05/10/20 09:15 Rouleaux Not Reportable 05/10/20 09:15 Hemoglobin C Crystals Not Reportable 05/10/20 09:15 Schistocytes Not Reportable 05/10/20 09:15 Malaria parasites Not Reportable 05/10/20 09:15 Rah Bodies Not Reportable 05/10/20 09:15 Hem Pathologist Commnt No 05/10/20 09:15 PT 15.4 Sec. (12.2-14.9) H 05/06/20 15:54 INR 1.19 (0.87-1.13) H 05/06/20 15:54 APTT 25.4 Sec. (24.2-36.6) 05/06/20 15:54 D-Dimer 2749.54 ng/mlDDU (0-234) H 05/06/20 18:25 Sodium 140 mmol/L (137-145) 05/10/20 09:15 Potassium 5.2 mmol/L (3.6-5.0) H 05/10/20 09:15 Chloride 101.2 mmol/L (98-107) 05/10/20 09:15 Carbon Dioxide 25 mmol/L (22-30) 05/10/20 09:15 Anion Gap 19 mmol/L 05/10/20 09:15 BUN 21 mg/dL (7-17) H 05/10/20 09:15 Creatinine 0.5 mg/dL (0.6-1.2) L 05/10/20 09:15 Estimated GFR > 60 ml/min 05/10/20 09:15 BUN/Creatinine Ratio 42 % 05/10/20 09:15 Glucose 102 mg/dL (65-100) H 05/10/20 09:15 POC Glucose 138 (70-105) H 05/06/20 22:48 Calcium 8.2 mg/dL (8.4-10.2) L 05/10/20 09:15 Ferritin 880.5 ng/mL (10.0-200.0) H 05/06/20 18:25 Total Bilirubin 0.30 mg/dL (0.1-1.2) 05/10/20 09:15 AST 27 units/L (5-40) 05/10/20 09:15 ALT 29 units/L (7-56) 05/10/20 09:15 Alkaline Phosphatase 77 units/L (35-129) 05/10/20 09:15 Lactate Dehydrogenase 212 units/L (91-180) H 05/06/20 18:25 C-Reactive Protein 28.40 mg/dL (0.00-1.30) H 05/06/20 18:25 Total Protein 6.1 g/dL (6.3-8.2) L 05/10/20 09:15 Albumin 2.8 g/dL (3.9-5) L 05/10/20 09:15 Albumin/Globulin Ratio 0.8 % 05/10/20 09:15 Lipase 10 units/L (13-60) L 05/06/20 15:54 Procalcitonin 1.89 ng/mL (<0.15) 05/06/20 18:25 Urine Color Corazon (Yellow) 05/06/20 Unknown Urine Turbidity Slightly-cloudy (Clear) 05/06/20 Unknown Urine pH 5.0 (5.0-7.0) 05/06/20 Unknown Ur Specific [place] 1.029 (1.003-1.030) 05/06/20 Unknown Urine Protein >500 mg/dL (Negative) 05/06/20 Unknown Urine Glucose (UA) Neg mg/dL (Negative) 05/06/20 Unknown Urine Ketones Neg mg/dL (Negative) 05/06/20 Unknown Urine Blood Mod (Negative) 05/06/20 Unknown Urine Nitrite Neg (Negative) 05/06/20 Unknown Urine Bilirubin Sm (Negative) 05/06/20 Unknown Urine Ictotest Positive (Negative) 05/06/20 Unknown Urine Urobilinogen 4.0 mg/dL (<2.0) 05/06/20 Unknown Ur Leukocyte Esterase Tr (Negative) 05/06/20 Unknown Urine WBC (Auto) 29.0 /HPF (0.0-6.0) H 05/06/20 Unknown Urine RBC (Auto) 5.0 /HPF (0.0-6.0) 05/06/20 Unknown U Epithel Cells (Auto) 3.0 /HPF (0-13.0) 05/06/20 Unknown Urine Mucus 2+ /HPF 05/06/20 Unknown Vancomycin Trough 9.7 ug/mL (5.0-20.0) 05/10/20 23:15 Coronavirus (PCR) Negative (Negative) 05/07/20 08:18 Microbiology: Microbiology 05/08/20 19:20 Peripheral/Venous Blood Culture - Preliminary NO GROWTH AFTER 48 HOURS 05/08/20 19:20 Peripheral/Venous Blood Culture - Preliminary NO GROWTH AFTER 48 HOURS 05/06/20 18:25 Peripheral/Venous Blood Culture - Final Methicillin Resist S. Aureus 05/06/20 18:29 Peripheral/Venous Blood Culture - Final Methicillin Resist S. Aureus - Diagnostic Impressions Diagnostic Impressions: Echocardiogram 05/08/20 13:11 Transthoracic Echocardiogram Indication: Endocarditis BP: 122/57 HR: 79 Conclusions *The left ventricular chamber size is normal. *Global left ventricular wall motion and contractility are within normal limits. *Global left ventricular systolic function is normal. *The estimated ejection fraction is 55-60%. *Abnormal left ventricular diastolic filling is observed, consistent with impaired relaxation. *The left atrial chamber size is normal. *The right ventricular cavity size is normal. *There is mitral annular calcification. *The right ventricular systolic pressure is calculated at 26 mmHg. *No obvious vegetations noted. Findings Left Ventricle: The left ventricular chamber size is normal. Global left ventricular wall motion and contractility are within normal limits. Global left ventricular systolic function is normal. The estimated ejection fraction is 55-60%. Abnormal left ventricular diastolic filling is observed, consistent with impaired relaxation. Left Atrium: The left atrial chamber size is normal. Right Ventricle: The right ventricular cavity size is normal. Right Atrium: The right atrial cavity size is normal. Aortic Valve: Mild aortic leaflet calcification is visualized. There is no evidence of aortic regurgitation. Mitral Valve: There is mitral annular calcification. Mild mitral leaflet calcification is visualized. There is trace of mitral regurgitation. Tricuspid Valve: The tricuspid valve leaflets are normal. There is trace tricuspid regurgitation. The right ventricular systolic pressure is calculated at 26 mmHg. Pulmonic Valve: The pulmonic valve appears normal. There is trace pulmonic regurgitation. Pericardium: There is no pericardial effusion. Aorta: The aorta appears normal. Venous: The inferior vena cava appears normal. Measurements Chambers 2D Name Value Normal Range IVSd (2D) 1.04 cm (0.6 - 1.1) LVPWd (2D) 1.07 cm (0.6 - 1.1) LVIDd (2D) 4.91 cm (3.7 - 5.6) LVIDs (2D) 3.35 cm (2 - 3.8) LV FS (2D) 31.74 % - EF Teichholz (2D) 59.57 % - Ao root diameter (2D) 3.16 cm (2 - 3.7) Volumes/Mass Name Value Normal Range LA ESV SP 4CH (A/L) 19.49 ml - LA ESV SP 2CH (A/L) 32.44 ml - LA ESV BP (A/L) 27.53 ml - LA ESV BP (A/L) index 14.88 ml/m2 - LA ESV SP 4CH (MOD) 19.11 ml - LA ESV SP 2CH (MOD) 30.88 ml - LA ESV BP (MOD) 26.52 ml - LA ESV BP (MOD) index 14.34 ml/m2 - Diastolic/Systolic Function Name Value Normal Range MV E-wave Vmax 0.7 m/sec - MV deceleration time 237.16 msec - MV A-wave Vmax 0.97 m/sec - MV E:A ratio 0.72 ratio - Aortic Valve Name Value Normal Range AV Vmax 1.46 m/sec - AV VTI 29.89 cm - AV peak gradient 8.54 mmHg - AV mean gradient 4.54 mmHg - LVOT diameter 2.07 cm - LVOT Vmax 1.26 m/sec - LVOT VTI 25.36 cm - LVOT peak gradient 6.4 mmHg - LVOT mean gradient 3.45 mmHg - SV LVOT 85.3 ml - LINDA (continuity Vmax) 2.91 cm2 - LINDA (continuity VTI) 2.85 cm2 - Mitral Valve Name Value Normal Range MR Vmax 4.4 m/sec - Tricuspid Valve Name Value Normal Range TR Vmax 2.42 m/sec - TR peak gradient 23 mmHg - RAP 3 mmHg - RVSP 26 mmHg - IVC diameter 2.26 cm (1.2 - 2.3) Pulmonic Valve/Qp:Qs Name Value Normal Range PV Vmax 0.72 m/sec - PV peak gradient 2.09 mmHg - RI end-diastolic Vmax 0.91 m/sec - PV acceleration time 98.95 msec - Richard/IV: Voiding Method Toilet IV Catheter Type [Right Upper INT / Saline Lock arm] IV Catheter Type [Left Upper INT / Saline Lock arm] IV Catheter Type [Left Forearm INT / Saline Lock ] IV Catheter Type [Left Hand] INT / Saline Lock Active Medications - Current Medications Current Medications: Generic Name Dose Route Start Last Admin Trade Name Freq PRN Reason Stop Dose Admin Acetaminophen 650 mg 05/06/20 18:33 05/09/20 18:38 Tylenol PO 650 mg Q4H PRN Administration Pain MILD(1-3)/Fever >100.5/VOGEL Al Hydrox/Mg Hydrox/Simethicone 30 ml 05/07/20 13:35 05/07/20 13:55 Alum-Mag Hydrox-Simeth [phone]/5ml PO 30 ml Q4H PRN Administration Indigestion Donepezil HCl 5 mg 05/07/20 22:00 05/10/20 21:57 Aricept PO 5 mg QHS ANGE Administration Guaifenesin 200 mg 05/07/20 20:12 05/10/20 23:16 Robitussin PO 200 mg Q6H PRN Administration Cough Heparin Sodium (Porcine) 5,000 unit 05/09/20 14:00 05/11/20 08:11 Heparin SUB-Q Not Given Q8HR ANGE Vancomycin HCl 1,250 mg/ 275 mls @ 166.667 mls/hr 05/11/20 10:00 Sodium Chloride IV Q12HR ANGE Ipratropium [place] 0.5 mg 05/10/20 14:00 05/11/20 10:12 Atrovent IH 0.5 mg Q6HRT ANGE Administration Methylprednisolone Sodium Succinate 40 mg 05/10/20 22:00 05/10/20 21:56 Solu-Medrol IV 40 mg Q12HR ANGE Administration Nicotine 14 mg 05/07/20 11:00 05/11/20 11:01 Habitrol TD 14 mg QDAY ANGE Administration Ondansetron HCl 4 mg 05/07/20 10:19 05/07/20 11:13 Zofran IV 4 mg Q4H PRN Administration Nausea And Vomiting Pantoprazole Sodium 40 mg 05/06/20 22:00 05/11/20 11:01 Protonix PO 40 mg BID ANGE Administration Quetiapine Fumarate 400 mg 05/07/20 22:00 05/10/20 21:56 Seroquel PO 400 mg HS ANGE Administration Sodium Chloride 10 ml 05/06/20 22:00 05/11/20 11:02 Sodium Chloride Flush Syringe 10 Ml IV Not Given BID ANGE Sodium Chloride 10 ml 05/06/20 18:33 Sodium Chloride Flush Syringe 10 Ml IV PRN PRN LINE FLUSH Tramadol HCl 50 mg 05/07/20 13:34 05/11/20 11:06 Ultram PO 50 mg Q6H PRN Administration Pain, Moderate (4-6) Nutrition/Malnutrition Assess - Dietary Evaluation Nutrition/Malnutrition Findings: Nutrition Notes Start: 05/07/20 10:32 Freq: Status: Active Protocol: Document 05/10/20 15:38 LM (Rec: 05/10/20 15:43 LM [id number]) Nutrition Notes Need for Assessment generated from: MD Order,sales representative raw fibers,MST Initial or Follow up Reassessment Current Diagnosis COPD,Hypertension,Respiratory Failure Other Pertinent Diagnosis pneu, duodinitis, UTI, nicotine dependence Current Diet cardiac Labs/Tests Reviewed Pertinent Medications Solu-Medrol Height 5 ft 3 in Weight 82.3 kg [place] Body Weight (kg) 52.27 BMI 32.1 Weight Status Obese Subjective/Other Information Unable to reach pt by phone. No intakes in chart today. pt with 75-100% intakes yesterday . Percent of energy/protein needs met: 100%/100% Burn Absent Trauma Absent Minimum of two criteria No Energy Intake (non-severe) <75% Estimated Energy Requirement >7 days #1 Nutrition Diagnosis Inadequate oral intake As Evidenced by Signs and Symptoms pt with 75-100% intakes in chart Diagnosis Progress(for reassessment Improved documentation) Is patient on ventilator? No Is Patient Ambulatory and/or Out of Bed Yes REE-(Saxe-St. Jeor-ambulatory/OOB) [ 1725.269 NUTR.[id number]] Kcal/Kg value to use for calculation 18 Approximate Energy Requirements Using 1481 kcal/Kg Calculation Used for Recommendations Kcal/kg Additional Notes Protein: 67-80g (1-1.2g/ kgusing AdjBW 67kg) Fluid: 1ml/kcal or per MD Nutrition Intervention Change Diet Order: continue Add Supplement/Snack (indicate name/kcal D/C /protein ) Goal #1 Meet at least 75% of energy and protein needs Anticipated Discharge Needs: cardiac Follow-Up By: 05/16/20 Additional Comments F/U for stable intakes
--- NOTE | 2020-05-11 12:43 | Progress Note ---
Assessment and Plan Cultures: 05/06/2020 blood culture: MRSA 05/06/2020 urine culture: MRSA COVID-19 PCR: Negative 05/08/2020 blood culture: no growth thus far A/P: 69-year-old female with hypertension, gastroesophageal reflux disease, vascular dementia, COPD on chronic home oxygen was admitted to the hospital with co mplaints of abdominal pain and nausea along with vomiting for the past few days: #MRSA bacteremia: Source unclear, possibly pneumonia. Patient with b/l TKA, R RAQUEL. No back pain, no joint pain. No intra-vascular prosthetic material. TTE without obvious vegetations or valvular disease. Xray of b/l knee unremarkable. Given her extensive indwelling hardware, at risk of seeding, hence will treat for 6 weeks. #Bilateral patchy pneumonia: COVID-19 negative. Procalcitonin is elevated. #COPD with acute on chronic respiratory failure: On supplemental oxygen. Also on steroids. #Duodenitis: Continue supportive care. On Protonix. Would not treat for presumptive H. pylori without a positive test. Recs: - IV vancomycin 1.25 g every 12 hours for 6 weeks ending 06/20/2020 via PICC line - CBC with differential, Creatinine, ALT, AST, Vancomycin trough, CRP once a week every Friday while on IV antibiotics - CM order placed for home IV abx - ID clinic follow up (baling machine operator notified) Faraz Bauer MD, FACP [facility] ([facility]) C: [phone] O: [phone] F: [phone] Subjective Date of service: 05/11/20 Interval history: No fever. Denies any complaints except some nausea. Hoping to go home soon. Objective - Exam Narrative Exam: Physical Exam: Constitutional: Alert, cooperative. No acute distress Head, Ears, Nose: Normocephalic, atraumatic. External ears, nose normal Eyes: Conjunctivae/corneas clear. No icterus. No ptosis. Neck: Supple, no meningeal signs Cardiovascular: S1, S2 normal. Respiratory: few rhonchi bilaterally GI: Soft, non-tender; bowel sounds normal. No peritoneal signs Musculoskeletal: No pedal edema, no cyanosis. b/l TKA, L with mild swelling, no significant warmth or tenderness. R RAQUEL + Skin: No rash or abscess Hem/Lymphatic: No palpable cervical or supraclavicular nodes. No lymphangitis Psych: Mood ok. Affect normal Neurological: Awake, alert, oriented. No gross abnormality - Constitutional Vitals: Vital Signs Temp Pulse Resp BP Pulse Ox 98.3 F 86 20 151/68 91 05/11/20 11:29 05/11/20 11:29 05/11/20 11:29 05/11/20 11:29 05/11/20 11:29 Temperature -Last 24 Hours Temperature 98.3 F Temperature 98.2 F Temperature 98.3 F Temperature 98.2 F - Labs CBC & Chem 7: 05/10/20 09:15 05/10/20 09:15
[2020-05-11] MEDS: VANCOMYCIN 1,250 MG in SODIUM CHLORIDE 0.9% 250ML 250 ML IV SCH ×2 (13:42→22:54)
[2020-05-11] MEDS: QUEtiapine 200 MG TAB PO SCH (22:54)
[2020-05-11] MEDS: DONEPEZIL 5 MG TAB PO SCH (22:54)
[2020-05-11] MEDS: guaiFENesin 200 MG TAB PO PRN (22:55)
[2020-05-12] MEDS: IPRATROPIUM 0.02% NEBU 2.5 ML IH SCH ×5 (01:28→20:45)
[2020-05-12] MEDS: HEPARIN 5,000 UNIT/1 ML VIAL SUB-Q SCH ×3 (06:12→22:55)
[2020-05-12] MEDS: PANTOPRAZOLE 40 MG TAB PO SCH ×2 (10:40→22:55)
[2020-05-12] MEDS: NICOTINE 14 MG/24 HR PATCH TD SCH (10:40)
[2020-05-12] MEDS: methylPREDNISolone Sod Succinate 40 MG/1 ML INJ IV SCH ×2 (10:40→22:55)
[2020-05-12] MEDS: VANCOMYCIN 1,250 MG in SODIUM CHLORIDE 0.9% 250ML 250 ML IV SCH ×2 (11:08→22:55)
--- NOTE | 2020-05-12 15:49 | Progress Note ---
Assessment and Plan Assessment and plan: 69 YO Female with HTN, GERD, HCV, OA, Depression, COPD, Vascular Dementia, JUANITA on CPAP, Nicotine Dependence, Chronic Respiratory Failure on 3L Home Oxygen who presented to ED for evaluation of worsening shortness of breath, weakness, abdominal discomfort, nausea, multiple episodes of vomiting, malaise, decreased exercise tolerance 3 days prior to presentation. Upon arrival of the EMS, the patient was found to be in distress and the patient was subsequently transported to [facility] for further care and evaluation. Pt seen and evaluated in ED. Chest x-ray revealed bilateral pneumonia. The patient was found to have acute on Chronic Hypoxemic Respiratory Failure requiring increase in supplemental oxygen requirement, as well as urinary tract infection. A CT scan of the abdomen and pelvis was conducted and the patient was found to have evidence of duodenitis. Patient initiated on COVID-19 protocol in the emergency department. Infectious disease service consulted in ED. 05/09. Patient noted to have staph bacteremia. ID on board. Patient is on vancomycin, ceftriaxone and azithromycin. Repeat blood cultures have been sent. Transthoracic echocardiogram performed showed no endocarditis.COVID-19 test is negative 05/10. Repeat blood culture is negative till date. On vancomycin. Ceftriaxone and azithromycin dced. ID recs appreciated. Discussed with patients daughter Violet ([phone]) today. 05/11. Repeat blood cultures remain negative. PICC line ordered as patient will need 6 on IV vancomycin. Patient prefers home antibiotics. Possible discharge today if antibiotics set up. Discussed with supportive employment case manager 05/12. Patient will be going to a facility instead of home. Awaiting insurance authorization prior to transfer. She will complete IV antibiotics for 6 weeks. - Patient Problems (1) Bilateral pneumonia Current Visit: Yes Status: Acute Plan to address problem: Continue vancomycin. Blood culture remains negative. Plan on 6 weeks IV vanco mycin. PICC line ordered ID recommendations appreciated Pulmonology follow-up at discharge Needs to have a repeat chest imaging in 2-3 weeks after discharge to reevaluate. (2) COPD exacerbation Onset Date: 10/14/13 Current Visit: Yes Status: Acute Plan to address problem: Taper solumedrol Bronchodilators Pulmonology follow-up at discharge (3) Duodenitis Current Visit: Yes Status: Acute Plan to address problem: Continue PPI. (4) UTI (urinary tract infection) Current Visit: Yes Status: Acute Qualifiers: Encounter type: initial encounter Plan to address problem: Continue antibiotics (5) Acute on chronic respiratory failure with hypoxemia Current Visit: No Status: Acute Plan to address problem: Continue oxygen supplementation (6) Staphylococcus aureus bacteremia Current Visit: Yes Status: Acute Plan to address problem: TTE negative for endocarditis Continue IV vancomycin. Plan for 6 weeks course PICC line ordered (7) Staphylococcus aureus infection Current Visit: Yes Status: Acute Plan to address problem: On vancomycin. TTE negative Repeat BC is NTD ID following (8) Elevated d-dimer Current Visit: Yes Status: Acute Plan to address problem: US LE doppler - negative for DVT She has an IV filter. Doubt any PE at this time. (9) DVT prophylaxis Current Visit: Yes Status: Acute Plan to address problem: Heparin/Lovenox History Interval history: See assessment and plan Hospitalist Physical - Constitutional Vitals: Temp Pulse Resp BP Pulse Ox 97.8 F 86 16 130/70 97 05/12/20 12:03 05/12/20 14:27 05/12/20 14:27 05/12/20 12:03 05/12/20 12:03 General appearance: Present: no acute distress, obese - EENT Eyes: Present: PERRL - Neck Neck: Present: supple - Respiratory Respiratory: bilateral: CTA - Cardiovascular Heart Sounds: Present: S1 & S2 - Extremities Extremities: no ischemia - Abdominal General gastrointestinal: soft, non-tender, non-distended, normal bowel sounds - Psychiatric Psychiatric: appropriate mood/affect - Neurologic Neurologic: CNII-XII intact Results - Labs CBC & Chem 7: 05/10/20 09:15 05/10/20 09:15 Labs: Laboratory Last Values WBC 12.7 K/mm3 (4.5-11.0) H 05/10/20 09:15 RBC 3.24 M/mm3 (3.65-5.03) L 05/10/20 09:15 Hgb 9.8 gm/dl (10.1-14.3) L 05/10/20 09:15 Hct 29.5 % (30.3-42.9) L 05/10/20 09:15 MCV 91 fl (79-97) 05/10/20 09:15 MCH 30 pg (28-32) 05/10/20 09:15 MCHC 33 % (30-34) 05/10/20 09:15 RDW 14.9 % (13.2-15.2) 05/10/20 09:15 Plt Count 233 K/mm3 (140-440) 05/10/20 09:15 Lymph % (Auto) Manager R D 05/10/20 09:15 Grady % (Auto) Manager R D 05/10/20 09:15 Eos % (Auto) Manager R D 05/10/20 09:15 Baso % (Auto) Manager R D 05/10/20 09:15 Lymph # Manager R D 05/10/20 09:15 Grady # Manager R D 05/10/20 09:15 Eos # Manager R D 05/10/20 09:15 Baso # Manager R D 05/10/20 09:15 Add Manual Diff Complete 05/10/20 09:15 Total Counted 100 05/10/20 09:15 Seg Neutrophils % Manager R D 05/10/20 09:15 Seg Neuts % (Manual) 74.0 % (40.0-70.0) H 05/10/20 09:15 Band Neutrophils % 5.0 % 05/10/20 09:15 Lymphocytes % (Manual) 5.0 % (13.4-35.0) L 05/10/20 09:15 Reactive Lymphs % (Man) 1.0 % 05/10/20 09:15 Monocytes % (Manual) 6.0 % (0.0-7.3) 05/10/20 09:15 Eosinophils % (Manual) 0 % (0.0-4.3) 05/10/20 09:15 Basophils % (Manual) 0 % (0.0-1.8) 05/10/20 09:15 Metamyelocytes % 8.0 % 05/10/20 09:15 Myelocytes % 1.0 % 05/10/20 09:15 Promyelocytes % 0 % 05/10/20 09:15 Blast Cells % 0 % 05/10/20 09:15 Nucleated RBC % Not Reportable 05/10/20 09:15 Seg Neutrophils # Manager R D 05/10/20 09:15 Seg Neutrophils # Man 9.4 K/mm3 (1.8-7.7) H 05/10/20 09:15 Band Neutrophils # 0.6 K/mm3 05/10/20 09:15 Lymphocytes # (Manual) 0.6 K/mm3 (1.2-5.4) L 05/10/20 09:15 Abs React Lymphs (Man) 0.1 K/mm3 05/10/20 09:15 Monocytes # (Manual) 0.8 K/mm3 (0.0-0.8) 05/10/20 09:15 Eosinophils # (Manual) 0.0 K/mm3 (0.0-0.4) 05/10/20 09:15 Basophils # (Manual) 0.0 K/mm3 (0.0-0.1) 05/10/20 09:15 Metamyelocytes # 1.0 K/mm3 05/10/20 09:15 Myelocytes # 0.1 K/mm3 05/10/20 09:15 Promyelocytes # 0.0 K/mm3 05/10/20 09:15 Blast Cells # 0.0 K/mm3 05/10/20 09:15 WBC Morphology Not Reportable 05/10/20 09:15 Hypersegmented Neuts Not Reportable 05/10/20 09:15 Hyposegmented Neuts Not Reportable 05/10/20 09:15 Hypogranular Neuts Not Reportable 05/10/20 09:15 Smudge Cells Not Reportable 05/10/20 09:15 Toxic Granulation Not Reportable 05/10/20 09:15 Toxic Vacuolation Not Reportable 05/10/20 09:15 Dohle Bodies Not Reportable 05/10/20 09:15 Pelger-Huet Anomaly Not Reportable 05/10/20 09:15 Dianne Rods Not Reportable 05/10/20 09:15 Platelet Estimate Consistent w auto 05/10/20 09:15 Clumped Platelets Rare 05/10/20 09:15 Plt Clumps, EDTA Not Reportable 05/10/20 09:15 Large Platelets Not Reportable 05/10/20 09:15 Giant Platelets Not Reportable 05/10/20 09:15 Platelet Satelliting Not Reportable 05/10/20 09:15 Plt Morphology Comment Not Reportable 05/10/20 09:15 RBC Morphology Normal 05/10/20 09:15 Dimorphic RBCs Not Reportable 05/10/20 09:15 Polychromasia Not Reportable 05/10/20 09:15 Hypochromasia Not Reportable 05/10/20 09:15 Poikilocytosis Not Reportable 05/10/20 09:15 Anisocytosis Not Reportable 05/10/20 09:15 Microcytosis Not Reportable 05/10/20 09:15 Macrocytosis Not Reportable 05/10/20 09:15 Spherocytes Not Reportable 05/10/20 09:15 Pappenheimer Bodies Not Reportable 05/10/20 09:15 Sickle Cells Not Reportable 05/10/20 09:15 Target Cells Not Reportable 05/10/20 09:15 Tear Drop Cells Not Reportable 05/10/20 09:15 Ovalocytes Not Reportable 05/10/20 09:15 Helmet Cells Not Reportable 05/10/20 09:15 Villa-Radisson Bodies Not Reportable 05/10/20 09:15 Swink Rings Not Reportable 05/10/20 09:15 Raj Cells Not Reportable 05/10/20 09:15 Bite Cells Not Reportable 05/10/20 09:15 Crenated Cell Not Reportable 05/10/20 09:15 Elliptocytes Not Reportable 05/10/20 09:15 Acanthocytes (Spur) Not Reportable 05/10/20 09:15 Rouleaux Not Reportable 05/10/20 09:15 Hemoglobin C Crystals Not Reportable 05/10/20 09:15 Schistocytes Not Reportable 05/10/20 09:15 Malaria parasites Not Reportable 05/10/20 09:15 Rah Bodies Not Reportable 05/10/20 09:15 Hem Pathologist Commnt No 05/10/20 09:15 PT 15.4 Sec. (12.2-14.9) H 05/06/20 15:54 INR 1.19 (0.87-1.13) H 05/06/20 15:54 APTT 25.4 Sec. (24.2-36.6) 05/06/20 15:54 D-Dimer 2749.54 ng/mlDDU (0-234) H 05/06/20 18:25 Sodium 140 mmol/L (137-145) 05/10/20 09:15 Potassium 5.2 mmol/L (3.6-5.0) H 05/10/20 09:15 Chloride 101.2 mmol/L (98-107) 05/10/20 09:15 Carbon Dioxide 25 mmol/L (22-30) 05/10/20 09:15 Anion Gap 19 mmol/L 05/10/20 09:15 BUN 21 mg/dL (7-17) H 05/10/20 09:15 Creatinine 0.5 mg/dL (0.6-1.2) L 05/10/20 09:15 Estimated GFR > 60 ml/min 05/10/20 09:15 BUN/Creatinine Ratio 42 % 05/10/20 09:15 Glucose 102 mg/dL (65-100) H 05/10/20 09:15 POC Glucose 138 (70-105) H 05/06/20 22:48 Calcium 8.2 mg/dL (8.4-10.2) L 05/10/20 09:15 Ferritin 880.5 ng/mL (10.0-200.0) H 05/06/20 18:25 Total Bilirubin 0.30 mg/dL (0.1-1.2) 05/10/20 09:15 AST 27 units/L (5-40) 05/10/20 09:15 ALT 29 units/L (7-56) 05/10/20 09:15 Alkaline Phosphatase 77 units/L (35-129) 05/10/20 09:15 Lactate Dehydrogenase 212 units/L (91-180) H 05/06/20 18:25 C-Reactive Protein 28.40 mg/dL (0.00-1.30) H 05/06/20 18:25 Total Protein 6.1 g/dL (6.3-8.2) L 05/10/20 09:15 Albumin 2.8 g/dL (3.9-5) L 05/10/20 09:15 Albumin/Globulin Ratio 0.8 % 05/10/20 09:15 Lipase 10 units/L (13-60) L 05/06/20 15:54 Procalcitonin 1.89 ng/mL (<0.15) 05/06/20 18:25 Urine Color Corazon (Yellow) 05/06/20 Unknown Urine Turbidity Slightly-cloudy (Clear) 05/06/20 Unknown Urine pH 5.0 (5.0-7.0) 05/06/20 Unknown Ur Specific Ringling 1.029 (1.003-1.030) 05/06/20 Unknown Urine Protein >500 mg/dL (Negative) 05/06/20 Unknown Urine Glucose (UA) Neg mg/dL (Negative) 05/06/20 Unknown Urine Ketones Neg mg/dL (Negative) 05/06/20 Unknown Urine Blood Mod (Negative) 05/06/20 Unknown Urine Nitrite Neg (Negative) 05/06/20 Unknown Urine Bilirubin Sm (Negative) 05/06/20 Unknown Urine Ictotest Positive (Negative) 05/06/20 Unknown Urine Urobilinogen 4.0 mg/dL (<2.0) 05/06/20 Unknown Ur Leukocyte Esterase Tr (Negative) 05/06/20 Unknown Urine WBC (Auto) 29.0 /HPF (0.0-6.0) H 05/06/20 Unknown Urine RBC (Auto) 5.0 /HPF (0.0-6.0) 05/06/20 Unknown U Epithel Cells (Auto) 3.0 /HPF (0-13.0) 05/06/20 Unknown Urine Mucus 2+ /HPF 05/06/20 Unknown Vancomycin Trough 9.7 ug/mL (5.0-20.0) 05/10/20 23:15 Coronavirus (PCR) Negative (Negative) 05/07/20 08:18 Microbiology: Microbiology 05/08/20 19:20 Peripheral/Venous Blood Culture - Preliminary NO GROWTH AFTER 72 HOURS 05/08/20 19:20 Peripheral/Venous Blood Culture - Preliminary NO GROWTH AFTER 72 HOURS - Diagnostic Impressions Diagnostic Impressions: Echocardiogram 05/08/20 13:11 Transthoracic Echocardiogram Indication: Endocarditis BP: 122/57 HR: 79 Conclusions *The left ventricular chamber size is normal. *Global left ventricular wall motion and contractility are within normal limits. *Global left ventricular systolic function is normal. *The estimated ejection fraction is 55-60%. *Abnormal left ventricular diastolic filling is observed, consistent with impaired relaxation. *The left atrial chamber size is normal. *The right ventricular cavity size is normal. *There is mitral annular calcification. *The right ventricular systolic pressure is calculated at 26 mmHg. *No obvious vegetations noted. Findings Left Ventricle: The left ventricular chamber size is normal. Global left ventricular wall motion and contractility are within normal limits. Global left ventricular systolic function is normal. The estimated ejection fraction is 55-60%. Abnormal left ventricular diastolic filling is observed, consistent with impaired relaxation. Left Atrium: The left atrial chamber size is normal. Right Ventricle: The right ventricular cavity size is normal. Right Atrium: The right atrial cavity size is normal. Aortic Valve: Mild aortic leaflet calcification is visualized. There is no evidence of aortic regurgitation. Mitral Valve: There is mitral annular calcification. Mild mitral leaflet calcification is visualized. There is trace of mitral regurgitation. Tricuspid Valve: The tricuspid valve leaflets are normal. There is trace tricuspid regurgitation. The right ventricular systolic pressure is calculated at 26 mmHg. Pulmonic Valve: The pulmonic valve appears normal. There is trace pulmonic regurgitation. Pericardium: There is no pericardial effusion. Aorta: The aorta appears normal. Venous: The inferior vena cava appears normal. Measurements Chambers 2D Name Value Normal Range IVSd (2D) 1.04 cm (0.6 - 1.1) LVPWd (2D) 1.07 cm (0.6 - 1.1) LVIDd (2D) 4.91 cm (3.7 - 5.6) LVIDs (2D) 3.35 cm (2 - 3.8) LV FS (2D) 31.74 % - EF Teichholz (2D) 59.57 % - Ao root diameter (2D) 3.16 cm (2 - 3.7) Volumes/Mass Name Value Normal Range LA ESV SP 4CH (A/L) 19.49 ml - LA ESV SP 2CH (A/L) 32.44 ml - LA ESV BP (A/L) 27.53 ml - LA ESV BP (A/L) index 14.88 ml/m2 - LA ESV SP 4CH (MOD) 19.11 ml - LA ESV SP 2CH (MOD) 30.88 ml - LA ESV BP (MOD) 26.52 ml - LA ESV BP (MOD) index 14.34 ml/m2 - Diastolic/Systolic Function Name Value Normal Range MV E-wave Vmax 0.7 m/sec - MV deceleration time 237.16 msec - MV A-wave Vmax 0.97 m/sec - MV E:A ratio 0.72 ratio - Aortic Valve Name Value Normal Range AV Vmax 1.46 m/sec - AV VTI 29.89 cm - AV peak gradient 8.54 mmHg - AV mean gradient 4.54 mmHg - LVOT diameter 2.07 cm - LVOT Vmax 1.26 m/sec - LVOT VTI 25.36 cm - LVOT peak gradient 6.4 mmHg - LVOT mean gradient 3.45 mmHg - SV LVOT 85.3 ml - LINDA (continuity Vmax) 2.91 cm2 - LINDA (continuity VTI) 2.85 cm2 - Mitral Valve Name Value Normal Range MR Vmax 4.4 m/sec - Tricuspid Valve Name Value Normal Range TR Vmax 2.42 m/sec - TR peak gradient 23 mmHg - RAP 3 mmHg - RVSP 26 mmHg - IVC diameter 2.26 cm (1.2 - 2.3) Pulmonic Valve/Qp:Qs Name Value Normal Range PV Vmax 0.72 m/sec - PV peak gradient 2.09 mmHg - MD end-diastolic Vmax 0.91 m/sec - PV acceleration time 98.95 msec - Richard/IV: Voiding Method Toilet IV Catheter Type [Right Upper PICC Line arm] IV Catheter Type [Left Upper INT / Saline Lock arm] IV Catheter Type [Left Forearm INT / Saline Lock ] IV Catheter Type [Left Hand] INT / Saline Lock Active Medications - Current Medications Current Medications: Generic Name Dose Route Start Last Admin Trade Name Freq PRN Reason Stop Dose Admin Acetaminophen 650 mg 05/06/20 18:33 05/09/20 18:38 Tylenol PO 650 mg Q4H PRN Administration Pain MILD(1-3)/Fever >100.5/VOGEL Al Hydrox/Mg Hydrox/Simethicone 30 ml 05/07/20 13:35 05/07/20 13:55 Alum-Mag Hydrox-Simeth [phone]/5ml PO 30 ml Q4H PRN Administration Indigestion Donepezil HCl 5 mg 05/07/20 22:00 05/11/20 22:54 Aricept PO 5 mg QHS ANGE Administration Guaifenesin 200 mg 05/07/20 20:12 05/11/20 22:55 Robitussin PO 200 mg Q6H PRN Administration Cough Heparin Sodium (Porcine) 5,000 unit 05/09/20 14:00 05/12/20 14:27 Heparin SUB-Q 5,000 unit Q8HR ANGE Administration Vancomycin HCl 1,250 mg/ 275 mls @ 166.667 mls/hr 05/11/20 10:00 05/12/20 14:30 Sodium Chloride IV Infused Q12HR ANGE Infusion Ipratropium [place] 0.5 mg 05/10/20 14:00 05/12/20 14:25 Atrovent IH 0.5 mg Q6HRT ANGE Administration Methylprednisolone Sodium Succinate 40 mg 05/10/20 22:00 05/12/20 10:40 Solu-Medrol IV 40 mg Q12HR ANGE Administration Nicotine 14 mg 05/07/20 11:00 05/12/20 10:40 Habitrol TD 14 mg QDAY ANGE Administration Ondansetron HCl 4 mg 05/07/20 10:19 05/07/20 11:13 Zofran IV 4 mg Q4H PRN Administration Nausea And Vomiting Pantoprazole Sodium 40 mg 05/06/20 22:00 05/12/20 10:40 Protonix PO 40 mg BID ANGE Administration Quetiapine Fumarate 400 mg 05/07/20 22:00 05/11/20 22:54 Seroquel PO 400 mg HS ANGE Administration Sodium Chloride 10 ml 05/06/20 22:00 05/12/20 10:40 Sodium Chloride Flush Syringe 10 Ml IV 10 ml BID ANGE Administration Sodium Chloride 10 ml 05/06/20 18:33 Sodium Chloride Flush Syringe 10 Ml IV PRN PRN LINE FLUSH Tramadol HCl 50 mg 05/07/20 13:34 05/11/20 22:55 Ultram PO 50 mg Q6H PRN Administration Pain, Moderate (4-6) Nutrition/Malnutrition Assess - Dietary Evaluation Nutrition/Malnutrition Findings: Nutrition Notes Start: 05/07/20 10:32 Freq: Status: Active Protocol: Document 05/10/20 15:38 LM (Rec: 05/10/20 15:43 LM [id number]) Nutrition Notes Need for Assessment generated from: MD Order,service vehicle operator,MST Initial or Follow up Reassessment Current Diagnosis COPD,Hypertension,Respiratory Failure Other Pertinent Diagnosis pneu, duodinitis, UTI, nicotine dependence Current Diet cardiac Labs/Tests Reviewed Pertinent Medications Solu-Medrol Height 5 ft 3 in Weight 82.3 kg [place] Body Weight (kg) 52.27 BMI 32.1 Weight Status Obese Subjective/Other Information Unable to reach pt by phone. No intakes in chart today. pt with 75-100% intakes yesterday . Percent of energy/protein needs met: 100%/100% Burn Absent Trauma Absent Minimum of two criteria No Energy Intake (non-severe) <75% Estimated Energy Requirement >7 days #1 Nutrition Diagnosis Inadequate oral intake As Evidenced by Signs and Symptoms pt with 75-100% intakes in chart Diagnosis Progress(for reassessment Improved documentation) Is patient on ventilator? No Is Patient Ambulatory and/or Out of Bed Yes REE-([place]-St. Jeor-ambulatory/OOB) [ 1725.269 NUTR.[id number]] Kcal/Kg value to use for calculation 18 Approximate Energy Requirements Using 1481 kcal/Kg Calculation Used for Recommendations Kcal/kg Additional Notes Protein: 67-80g (1-1.2g/ kgusing AdjBW 67kg) Fluid: 1ml/kcal or per MD Nutrition Intervention Change Diet Order: continue Add Supplement/Snack (indicate name/kcal D/C /protein ) Goal #1 Meet at least 75% of energy and protein needs Anticipated Discharge Needs: cardiac Follow-Up By: 05/16/20 Additional Comments F/U for stable intakes
--- NOTE | 2020-05-12 16:27 | Progress Note ---
Assessment and Plan Cultures: 05/06/2020 blood culture: MRSA 05/06/2020 urine culture: MRSA COVID-19 PCR: Negative 05/08/2020 blood culture: no growth A/P: 69-year-old female with hypertension, gastroesophageal reflux disease, vascular dementia, COPD on chronic home oxygen was admitted to the hospital with complaints of abdominal pain and nausea along with vomiting for the past few days: #MRSA bacteremia: Source unclear, possibly pneumonia. Patient with b/l TKA, R RAQUEL. No back pain, no joint pain. No intra-vascular prosthetic material. TTE without obvious vegetations or valvular disease. Xray of b/l knee unremarkable. Given her extensive indwelling hardware, at risk of seeding, hence will treat for 6 weeks. #Bilateral patchy pneumonia: COVID-19 negative. Procalcitonin is elevated. #COPD with acute on chronic respiratory failure: On supplemental oxygen. Also on steroids. #Duodenitis: Continue supportive care. On Protonix. Would not treat for presumptive H. pylori without a positive test. Recs: - IV vancomycin 1.25 g every 12 hours for 6 weeks ending 06/20/2020 via PICC line - CBC with differential, Creatinine, ALT, AST, Vancomycin trough, CRP once a week every Friday while on IV antibiotics - CM order placed for home IV abx - ID clinic follow up (material scheduler notified) - awaiting disposition based on insurance (home v/s rehab) ID will sign off. Please call with questions. Faraz Bauer MD, FACP [facility] ([facility]) C: [phone] O: [phone] F: [phone] Subjective Date of service: 05/12/20 Interval history: No fever. Denies any complaints. Got PICC line. Objective - Exam Narrative Exam: Physical Exam: Constitutional: Alert, cooperative. No acute distress Head, Ears, Nose: Normocephalic, atraumatic. External ears, nose normal Eyes: Conjunctivae/corneas clear. No icterus. No ptosis. Neck: Supple, no meningeal signs Cardiovascular: S1, S2 normal. Respiratory: clear, AEBE GI: Soft, non-tender; bowel sounds normal. No peritoneal signs Musculoskeletal: No pedal edema, no cyanosis. b/l TKA, L with mild swelling, no significant warmth or tenderness. R RAQUEL +. R arm PICC + Skin: No rash or abscess Hem/Lymphatic: No palpable cervical or supraclavicular nodes. No lymphangitis Psych: Mood ok. Affect normal Neurological: Awake, alert, oriented. No gross abnormality - Constitutional Vitals: Vital Signs Temp Pulse Resp BP Pulse Ox 97.8 F 86 16 130/70 97 05/12/20 12:03 05/12/20 14:27 05/12/20 14:27 05/12/20 12:03 05/12/20 12:03 Temperature -Last 24 Hours Temperature 97.8 F Temperature 98.3 F Temperature 98.1 F Temperature 98.5 F - Labs CBC & Chem 7: 05/10/20 09:15 05/10/20 09:15
[2020-05-12] MEDS: traMADol 50 MG TAB PO PRN (18:00)
[2020-05-12] MEDS: DONEPEZIL 5 MG TAB PO SCH (22:55)
[2020-05-12] MEDS: QUEtiapine 200 MG TAB PO SCH (22:55)
[2020-05-13] MEDS: IPRATROPIUM 0.02% NEBU 2.5 ML IH SCH ×5 (02:00→21:01)
[2020-05-13] MEDS: HEPARIN 5,000 UNIT/1 ML VIAL SUB-Q SCH ×3 (05:36→23:23)
[2020-05-13] MEDS: NICOTINE 14 MG/24 HR PATCH TD SCH (11:24)
[2020-05-13] MEDS: PANTOPRAZOLE 40 MG TAB PO SCH ×2 (11:25→23:23)
[2020-05-13] MEDS: methylPREDNISolone Sod Succinate 40 MG/1 ML INJ IV SCH ×2 (11:25→23:43)
[2020-05-13] MEDS: traMADol 50 MG TAB PO PRN ×2 (11:47→23:23)
[2020-05-13] MEDS: VANCOMYCIN 1,250 MG in SODIUM CHLORIDE 0.9% 250ML 250 ML IV SCH ×2 (11:51→23:42)
--- NOTE | 2020-05-13 12:19 | Progress Note ---
Assessment and Plan Assessment and plan: 69 YO Female with HTN, GERD, HCV, OA, Depression, COPD, Vascular Dementia, JUANITA on CPAP, Nicotine Dependence, Chronic Respiratory Failure on 3L Home Oxygen who presented to ED for evaluation of worsening shortness of breath, weakness, abdominal discomfort, nausea, multiple episodes of vomiting, malaise, decreased exercise tolerance 3 days prior to presentation. Upon arrival of the EMS, the patient was found to be in distress and the patient was subsequently transported to [facility] for further care and evaluation. Pt seen and evaluated in ED. Chest x-ray revealed bilateral pneumonia. The patient was found to have acute on Chronic Hypoxemic Respiratory Failure requiring increase in supplemental oxygen requirement, as well as urinary tract infection. A CT scan of the abdomen and pelvis was conducted and the patient was found to have evidence of duodenitis. Patient initiated on COVID-19 protocol in the emergency department. Infectious disease service consulted in ED. 05/09. Patient noted to have staph bacteremia. ID on board. Patient is on vancomycin, ceftriaxone and azithromycin. Repeat blood cultures have been sent. Transthoracic echocardiogram performed showed no endocarditis.COVID-19 test is negative 05/10. Repeat blood culture is negative till date. On vancomycin. Ceftriaxone and azithromycin dced. ID recs appreciated. Discussed with patients daughter Violet ([phone]) today. 05/11. Repeat blood cultures remain negative. PICC line ordered as patient will need 6 on IV vancomycin. Patient prefers home antibiotics. Possible discharge today if antibiotics set up. Discussed with lead case manager 05/12. Patient will be going to a facility instead of home. Awaiting insurance authorization prior to transfer. She will complete IV antibiotics for 6 weeks. 05/13. Sleeping this AM. Plan for DC to a facility to complete antibiotics. Will discuss with family today. - Patient Problems (1) Bilateral pneumonia Current Visit: Yes Status: Acute Plan to address problem: Continue vancomycin. Blood culture remains negative. Plan on 6 weeks IV vancomycin. PICC line ordered ID recommendations appreciated Pulmonology follow-up at discharge Needs to have a repeat chest imaging in 2-3 weeks after discharge to reevaluate. (2) COPD exacerbation Onset Date: 10/14/13 Current Visit: Yes Status: Acute Plan to address problem: Taper solumedrol Bronchodilators Pulmonology follow-up at discharge (3) Duodenitis Current Visit: Yes Status: Acute Plan to address problem: Continue PPI. (4) UTI (urinary tract infection) Current Visit: Yes Status: Acute Qualifiers: Encounter type: initial encounter Plan to address problem: Continue antibiotics (5) Acute on chronic respiratory failure with hypoxemia Current Visit: No Status: Acute Plan to address problem: Continue oxygen supplementation (6) Staphylococcus aureus bacteremia Current Visit: Yes Status: Acute Plan to address problem: TTE negative for endocarditis Continue IV vancomycin. Plan for 6 weeks course PICC line in ID recs appreciated (7) Staphylococcus aureus infection Current Visit: Yes Status: Acute Plan to address problem: On vancomycin. Will complete antibiotics in 6 weeks TTE negative Repeat BC is negative ID following (8) Elevated d-dimer Current Visit: Yes Status: Acute Plan to address problem: US LE doppler - negative for DVT She has an IV filter. Doubt any PE at this time. (9) DVT prophylaxis Current Visit: Yes Status: Acute Plan to address problem: Heparin/Lovenox History Interval history: See assessment and plan Hospitalist Physical - Constitutional Vitals: Temp Pulse Resp BP Pulse Ox 98.3 F 83 20 131/70 92 05/13/20 05:42 05/13/20 05:42 05/13/20 05:42 05/13/20 05:42 05/13/20 09:46 General appearance: Present: no acute distress, obese - EENT Eyes: Present: PERRL - Respiratory Respiratory: bilateral: diminished - Cardiovascular Rhythm: regular Heart Sounds: Present: S1 & S2 - Extremities Extremities: No edema - Abdominal General gastrointestinal: soft, non-tender, non-distended - Psychiatric Psychiatric: appropriate mood/affect - Neurologic Neurologic: CNII-XII intact Results - Labs CBC & Chem 7: 05/10/20 09:15 05/10/20 09:15 Labs: Laboratory Last Values WBC 12.7 K/mm3 (4.5-11.0) H 05/10/20 09:15 RBC 3.24 M/mm3 (3.65-5.03) L 05/10/20 09:15 Hgb 9.8 gm/dl (10.1-14.3) L 05/10/20 09:15 Hct 29.5 % (30.3-42.9) L 05/10/20 09:15 MCV 91 fl (79-97) 05/10/20 09:15 MCH 30 pg (28-32) 05/10/20 09:15 MCHC 33 % (30-34) 05/10/20 09:15 RDW 14.9 % (13.2-15.2) 05/10/20 09:15 Plt Count 233 K/mm3 (140-440) 05/10/20 09:15 Lymph % (Auto) Medical Billing And Coding Instructor 05/10/20 09:15 [place] % (Auto) Medical Billing And Coding Instructor 05/10/20 09:15 Eos % (Auto) Medical Billing And Coding Instructor 05/10/20 09:15 Baso % (Auto) Medical Billing And Coding Instructor 05/10/20 09:15 Lymph # Medical Billing And Coding Instructor 05/10/20 09:15 [place] # Medical Billing And Coding Instructor 05/10/20 09:15 Eos # Medical Billing And Coding Instructor 05/10/20 09:15 Baso # Medical Billing And Coding Instructor 05/10/20 09:15 Add Manual Diff Complete 05/10/20 09:15 Total Counted 100 05/10/20 09:15 Seg Neutrophils % Medical Billing And Coding Instructor 05/10/20 09:15 Seg Neuts % (Manual) 74.0 % (40.0-70.0) H 05/10/20 09:15 Band Neutrophils % 5.0 % 05/10/20 09:15 Lymphocytes % (Manual) 5.0 % (13.4-35.0) L 05/10/20 09:15 Reactive Lymphs % (Man) 1.0 % 05/10/20 09:15 Monocytes % (Manual) 6.0 % (0.0-7.3) 05/10/20 09:15 Eosinophils % (Manual) 0 % (0.0-4.3) 05/10/20 09:15 Basophils % (Manual) 0 % (0.0-1.8) 05/10/20 09:15 Metamyelocytes % 8.0 % 05/10/20 09:15 Myelocytes % 1.0 % 05/10/20 09:15 Promyelocytes % 0 % 05/10/20 09:15 Blast Cells % 0 % 05/10/20 09:15 Nucleated RBC % Not Reportable 05/10/20 09:15 Seg Neutrophils # Medical Billing And Coding Instructor 05/10/20 09:15 Seg Neutrophils # Man 9.4 K/mm3 (1.8-7.7) H 05/10/20 09:15 Band Neutrophils # 0.6 K/mm3 05/10/20 09:15 Lymphocytes # (Manual) 0.6 K/mm3 (1.2-5.4) L 05/10/20 09:15 Abs React Lymphs (Man) 0.1 K/mm3 05/10/20 09:15 Monocytes # (Manual) 0.8 K/mm3 (0.0-0.8) 05/10/20 09:15 Eosinophils # (Manual) 0.0 K/mm3 (0.0-0.4) 05/10/20 09:15 Basophils # (Manual) 0.0 K/mm3 (0.0-0.1) 05/10/20 09:15 Metamyelocytes # 1.0 K/mm3 05/10/20 09:15 Myelocytes # 0.1 K/mm3 05/10/20 09:15 Promyelocytes # 0.0 K/mm3 05/10/20 09:15 Blast Cells # 0.0 K/mm3 05/10/20 09:15 WBC Morphology Not Reportable 05/10/20 09:15 Hypersegmented Neuts Not Reportable 05/10/20 09:15 Hyposegmented Neuts Not Reportable 05/10/20 09:15 Hypogranular Neuts Not Reportable 05/10/20 09:15 Smudge Cells Not Reportable 05/10/20 09:15 Toxic Granulation Not Reportable 05/10/20 09:15 Toxic Vacuolation Not Reportable 05/10/20 09:15 Dohle Bodies Not Reportable 05/10/20 09:15 Pelger-Huet Anomaly Not Reportable 05/10/20 09:15 Dianne Rods Not Reportable 05/10/20 09:15 Platelet Estimate Consistent w auto 05/10/20 09:15 Clumped Platelets Rare 05/10/20 09:15 Plt Clumps, EDTA Not Reportable 05/10/20 09:15 Large Platelets Not Reportable 05/10/20 09:15 Giant Platelets Not Reportable 05/10/20 09:15 Platelet Satelliting Not Reportable 05/10/20 09:15 Plt Morphology Comment Not Reportable 05/10/20 09:15 RBC Morphology Normal 05/10/20 09:15 Dimorphic RBCs Not Reportable 05/10/20 09:15 Polychromasia Not Reportable 05/10/20 09:15 Hypochromasia Not Reportable 05/10/20 09:15 Poikilocytosis Not Reportable 05/10/20 09:15 Anisocytosis Not Reportable 05/10/20 09:15 Microcytosis Not Reportable 05/10/20 09:15 Macrocytosis Not Reportable 05/10/20 09:15 Spherocytes Not Reportable 05/10/20 09:15 Pappenheimer Bodies Not Reportable 05/10/20 09:15 Sickle Cells Not Reportable 05/10/20 09:15 Target Cells Not Reportable 05/10/20 09:15 Tear Drop Cells Not Reportable 05/10/20 09:15 Ovalocytes Not Reportable 05/10/20 09:15 Helmet Cells Not Reportable 05/10/20 09:15 [place] Bodies Not Reportable 05/10/20 09:15 [place] Rings Not Reportable 05/10/20 09:15 [place] Cells Not Reportable 05/10/20 09:15 Bite Cells Not Reportable 05/10/20 09:15 Crenated Cell Not Reportable 05/10/20 09:15 Elliptocytes Not Reportable 05/10/20 09:15 Acanthocytes (Spur) Not Reportable 05/10/20 09:15 Rouleaux Not Reportable 05/10/20 09:15 Hemoglobin C Crystals Not Reportable 05/10/20 09:15 Schistocytes Not Reportable 05/10/20 09:15 Malaria parasites Not Reportable 05/10/20 09:15 Rah Bodies Not Reportable 05/10/20 09:15 Hem Pathologist Commnt No 05/10/20 09:15 PT 15.4 Sec. (12.2-14.9) H 05/06/20 15:54 INR 1.19 (0.87-1.13) H 05/06/20 15:54 APTT 25.4 Sec. (24.2-36.6) 05/06/20 15:54 D-Dimer 2749.54 ng/mlDDU (0-234) H 05/06/20 18:25 Sodium 140 mmol/L (137-145) 05/10/20 09:15 Potassium 5.2 mmol/L (3.6-5.0) H 05/10/20 09:15 Chloride 101.2 mmol/L (98-107) 05/10/20 09:15 Carbon Dioxide 25 mmol/L (22-30) 05/10/20 09:15 Anion Gap 19 mmol/L 05/10/20 09:15 BUN 21 mg/dL (7-17) H 05/10/20 09:15 Creatinine 0.5 mg/dL (0.6-1.2) L 05/10/20 09:15 Estimated GFR > 60 ml/min 05/10/20 09:15 BUN/Creatinine Ratio 42 % 05/10/20 09:15 Glucose 102 mg/dL (65-100) H 05/10/20 09:15 POC Glucose 138 (70-105) H 05/06/20 22:48 Calcium 8.2 mg/dL (8.4-10.2) L 05/10/20 09:15 Ferritin 880.5 ng/mL (10.0-200.0) H 05/06/20 18:25 Total Bilirubin 0.30 mg/dL (0.1-1.2) 05/10/20 09:15 AST 27 units/L (5-40) 05/10/20 09:15 ALT 29 units/L (7-56) 05/10/20 09:15 Alkaline Phosphatase 77 units/L (35-129) 05/10/20 09:15 Lactate Dehydrogenase 212 units/L (91-180) H 05/06/20 18:25 C-Reactive Protein 28.40 mg/dL (0.00-1.30) H 05/06/20 18:25 Total Protein 6.1 g/dL (6.3-8.2) L 05/10/20 09:15 Albumin 2.8 g/dL (3.9-5) L 05/10/20 09:15 Albumin/Globulin Ratio 0.8 % 05/10/20 09:15 Lipase 10 units/L (13-60) L 05/06/20 15:54 Procalcitonin 1.89 ng/mL (<0.15) 05/06/20 18:25 Urine Color Corazon (Yellow) 05/06/20 Unknown Urine Turbidity Slightly-cloudy (Clear) 05/06/20 Unknown Urine pH 5.0 (5.0-7.0) 05/06/20 Unknown Ur Specific [place] 1.029 (1.003-1.030) 05/06/20 Unknown Urine Protein >500 mg/dL (Negative) 05/06/20 Unknown Urine Glucose (UA) Neg mg/dL (Negative) 05/06/20 Unknown Urine Ketones Neg mg/dL (Negative) 05/06/20 Unknown Urine Blood Mod (Negative) 05/06/20 Unknown Urine Nitrite Neg (Negative) 05/06/20 Unknown Urine Bilirubin Sm (Negative) 05/06/20 Unknown Urine Ictotest Positive (Negative) 05/06/20 Unknown Urine Urobilinogen 4.0 mg/dL (<2.0) 05/06/20 Unknown Ur Leukocyte Esterase Tr (Negative) 05/06/20 Unknown Urine WBC (Auto) 29.0 /HPF (0.0-6.0) H 05/06/20 Unknown Urine RBC (Auto) 5.0 /HPF (0.0-6.0) 05/06/20 Unknown U Epithel Cells (Auto) 3.0 /HPF (0-13.0) 05/06/20 Unknown Urine Mucus 2+ /HPF 05/06/20 Unknown Vancomycin Trough 15.9 ug/mL (5.0-20.0) 05/12/20 21:26 Coronavirus (PCR) Negative (Negative) 05/07/20 08:18 Microbiology: Microbiology 05/08/20 19:20 Peripheral/Venous Blood Culture - Preliminary NO GROWTH AFTER 4 DAYS 05/08/20 19:20 Peripheral/Venous Blood Culture - Preliminary NO GROWTH AFTER 4 DAYS - Diagnostic Impressions Diagnostic Impressions: Echocardiogram 05/08/20 13:11 Transthoracic Echocardiogram Indication: Endocarditis BP: 122/57 HR: 79 Conclusions *The left ventricular chamber size is normal. *Global left ventricular wall motion and contractility are within normal limits. *Global left ventricular systolic function is normal. *The estimated ejection fraction is 55-60%. *Abnormal left ventricular diastolic filling is observed, consistent with impaired relaxation. *The left atrial chamber size is normal. *The right ventricular cavity size is normal. *There is mitral annular calcification. *The right ventricular systolic pressure is calculated at 26 mmHg. *No obvious vegetations noted. Findings Left Ventricle: The left ventricular chamber size is normal. Global left ventricular wall motion and contractility are within normal limits. Global left ventricular systolic function is normal. The estimated ejection fraction is 55-60%. Abnormal left ventricular diastolic filling is observed, consistent with impaired relaxation. Left Atrium: The left atrial chamber size is normal. Right Ventricle: The right ventricular cavity size is normal. Right Atrium: The right atrial cavity size is normal. Aortic Valve: Mild aortic leaflet calcification is visualized. There is no evidence of aortic regurgitation. Mitral Valve: There is mitral annular calcification. Mild mitral leaflet calcification is visualized. There is trace of mitral regurgitation. Tricuspid Valve: The tricuspid valve leaflets are normal. There is trace tricuspid regurgitation. The right ventricular systolic pressure is calculated at 26 mmHg. Pulmonic Valve: The pulmonic valve appears normal. There is trace pulmonic regurgitation. Pericardium: There is no pericardial effusion. Aorta: The aorta appears normal. Venous: The inferior vena cava appears normal. Measurements Chambers 2D Name Value Normal Range IVSd (2D) 1.04 cm (0.6 - 1.1) LVPWd (2D) 1.07 cm (0.6 - 1.1) LVIDd (2D) 4.91 cm (3.7 - 5.6) LVIDs (2D) 3.35 cm (2 - 3.8) LV FS (2D) 31.74 % - EF Teichholz (2D) 59.57 % - Ao root diameter (2D) 3.16 cm (2 - 3.7) Volumes/Mass Name Value Normal Range LA ESV SP 4CH (A/L) 19.49 ml - LA ESV SP 2CH (A/L) 32.44 ml - LA ESV BP (A/L) 27.53 ml - LA ESV BP (A/L) index 14.88 ml/m2 - LA ESV SP 4CH (MOD) 19.11 ml - LA ESV SP 2CH (MOD) 30.88 ml - LA ESV BP (MOD) 26.52 ml - LA ESV BP (MOD) index 14.34 ml/m2 - Diastolic/Systolic Function Name Value Normal Range MV E-wave Vmax 0.7 m/sec - MV deceleration time 237.16 msec - MV A-wave Vmax 0.97 m/sec - MV E:A ratio 0.72 ratio - Aortic Valve Name Value Normal Range AV Vmax 1.46 m/sec - AV VTI 29.89 cm - AV peak gradient 8.54 mmHg - AV mean gradient 4.54 mmHg - LVOT diameter 2.07 cm - LVOT Vmax 1.26 m/sec - LVOT VTI 25.36 cm - LVOT peak gradient 6.4 mmHg - LVOT mean gradient 3.45 mmHg - SV LVOT 85.3 ml - LINDA (continuity Vmax) 2.91 cm2 - LINDA (continuity VTI) 2.85 cm2 - Mitral Valve Name Value Normal Range MR Vmax 4.4 m/sec - Tricuspid Valve Name Value Normal Range TR Vmax 2.42 m/sec - TR peak gradient 23 mmHg - RAP 3 mmHg - RVSP 26 mmHg - IVC diameter 2.26 cm (1.2 - 2.3) Pulmonic Valve/Qp:Qs Name Value Normal Range PV Vmax 0.72 m/sec - PV peak gradient 2.09 mmHg - CA end-diastolic Vmax 0.91 m/sec - PV acceleration time 98.95 msec - Richard/IV: Voiding Method Toilet IV Catheter Type [Right Upper PICC Line arm] IV Catheter Type [Left Upper INT / Saline Lock arm] IV Catheter Type [Left Forearm INT / Saline Lock ] IV Catheter Type [Left Hand] INT / Saline Lock Active Medications - Current Medications Current Medications: Generic Name Dose Route Start Last Admin Trade Name Freq PRN Reason Stop Dose Admin Acetaminophen 650 mg 05/06/20 18:33 05/09/20 18:38 Tylenol PO 650 mg Q4H PRN Administration Pain MILD(1-3)/Fever >100.5/VOGEL Al Hydrox/Mg Hydrox/Simethicone 30 ml 05/07/20 13:35 05/07/20 13:55 Alum-Mag Hydrox-Simeth 189-778-08cn/5ml PO 30 ml Q4H PRN Administration Indigestion Donepezil HCl 5 mg 05/07/20 22:00 05/12/20 22:55 Aricept PO 5 mg QHS ANGE Administration Guaifenesin 200 mg 05/07/20 20:12 05/11/20 22:55 Robitussin PO 200 mg Q6H PRN Administration Cough Heparin Sodium (Porcine) 5,000 unit 05/09/20 14:00 05/13/20 05:36 Heparin SUB-Q 5,000 unit Q8HR ANGE Administration Vancomycin HCl 1,250 mg/ 275 mls @ 166.667 mls/hr 05/11/20 10:00 05/13/20 11:51 Sodium Chloride IV 166.667 mls/hr Q12HR ANGE Administration Ipratropium [place] 0.5 mg 05/10/20 14:00 05/13/20 09:45 Atrovent IH Not Given Q6HRT ANGE Methylprednisolone Sodium Succinate 40 mg 05/10/20 22:00 05/13/20 11:25 Solu-Medrol IV 40 mg Q12HR ANGE Administration Nicotine 14 mg 05/07/20 11:00 05/13/20 11:24 Habitrol TD 14 mg QDAY ANGE Administration Ondansetron HCl 4 mg 05/07/20 10:19 05/07/20 11:13 Zofran IV 4 mg Q4H PRN Administration Nausea And Vomiting Pantoprazole Sodium 40 mg 05/06/20 22:00 05/13/20 11:25 Protonix PO 40 mg BID ANGE Administration Quetiapine Fumarate 400 mg 05/07/20 22:00 05/12/20 22:55 Seroquel PO 400 mg HS ANGE Administration Sodium Chloride 10 ml 05/06/20 22:00 05/13/20 11:25 Sodium Chloride Flush Syringe 10 Ml IV 10 ml BID ANGE Administration Sodium Chloride 10 ml 05/06/20 18:33 Sodium Chloride Flush Syringe 10 Ml IV PRN PRN LINE FLUSH Tramadol HCl 50 mg 05/07/20 13:34 05/13/20 11:47 Ultram PO 50 mg Q6H PRN Administration Pain, Moderate (4-6) Nutrition/Malnutrition Assess - Dietary Evaluation Nutrition/Malnutrition Findings: Nutrition Notes Start: 05/07/20 10:32 Freq: Status: Active Protocol: Document 05/10/20 15:38 LM (Rec: 05/10/20 15:43 LM [id number]) Nutrition Notes Need for Assessment generated from: MD Order,hairspring staker,MST Initial or Follow up Reassessment Current Diagnosis COPD,Hypertension,Respiratory Failure Other Pertinent Diagnosis pneu, duodinitis, UTI, nicotine dependence Current Diet cardiac Labs/Tests Reviewed Pertinent Medications Solu-Medrol Height 5 ft 3 in Weight 82.3 kg [place] Body Weight (kg) 52.27 BMI 32.1 Weight Status Obese Subjective/Other Information Unable to reach pt by phone. No intakes in chart today. pt with 75-100% intakes yesterday . Percent of energy/protein needs met: 100%/100% Burn Absent Trauma Absent Minimum of two criteria No Energy Intake (non-severe) <75% Estimated Energy Requirement >7 days #1 Nutrition Diagnosis Inadequate oral intake As Evidenced by Signs and Symptoms pt with 75-100% intakes in chart Diagnosis Progress(for reassessment Improved documentation) Is patient on ventilator? No Is Patient Ambulatory and/or Out of Bed Yes REE-([place]-St. Jeor-ambulatory/OOB) [ 4755.269 [id number]] Kcal/Kg value to use for calculation 18 Approximate Energy Requirements Using 1481 kcal/Kg Calculation Used for Recommendations Kcal/kg Additional Notes Protein: 67-80g (1-1.2g/ kgusing AdjBW 67kg) Fluid: 1ml/kcal or per MD Nutrition Intervention Change Diet Order: continue Add Supplement/Snack (indicate name/kcal D/C /protein ) Goal #1 Meet at least 75% of energy and protein needs Anticipated Discharge Needs: cardiac Follow-Up By: 05/16/20 Additional Comments F/U for stable intakes
[2020-05-13] MEDS: QUEtiapine 200 MG TAB PO SCH (23:23)
[2020-05-13] MEDS: DONEPEZIL 5 MG TAB PO SCH (23:26)
[2020-05-14] MEDS: IPRATROPIUM 0.02% NEBU 2.5 ML IH SCH ×4 (02:13→20:22)
[2020-05-14] MEDS: HEPARIN 5,000 UNIT/1 ML VIAL SUB-Q SCH ×3 (06:35→21:14)
[2020-05-14] MEDS: PANTOPRAZOLE 40 MG TAB PO SCH ×2 (09:10→21:14)
[2020-05-14] MEDS: NICOTINE 14 MG/24 HR PATCH TD SCH (09:10)
[2020-05-14] MEDS: methylPREDNISolone Sod Succinate 40 MG/1 ML INJ IV SCH ×2 (09:10→21:14)
[2020-05-14] MEDS: VANCOMYCIN 1,250 MG in SODIUM CHLORIDE 0.9% 250ML 250 ML IV SCH ×2 (09:19→22:00)
[2020-05-14] MEDS: traMADol 50 MG TAB PO PRN ×2 (09:39→19:16)
--- NOTE | 2020-05-14 13:05 | Progress Note ---
Assessment and Plan Assessment and plan: 69 YO Female with HTN, GERD, HCV, OA, Depression, COPD, Vascular Dementia, JUANITA on CPAP, Nicotine Dependence, Chronic Respiratory Failure on 3L Home Oxygen who presented to ED for evaluation of worsening shortness of breath, weakness, abdominal discomfort, nausea, multiple episodes of vomiting, malaise, decreased exercise tolerance 3 days prior to presentation. Upon arrival of the EMS, the patient was found to be in distress and the patient was subsequently transported to [facility] for further care and evaluation. Pt seen and evaluated in ED. Chest x-ray revealed bilateral pneumonia. The patient was found to have acute on Chronic Hypoxemic Respiratory Failure requiring increase in supplemental oxygen requirement, as well as urinary tract infection. A CT scan of the abdomen and pelvis was conducted and the patient was found to have evidence of duodenitis. Patient initiated on COVID-19 protocol in the emergency department. Infectious disease service consulted in ED. 05/09. Patient noted to have staph bacteremia. ID on board. Patient is on vancomycin, ceftriaxone and azithromycin. Repeat blood cultures have been sent. Transthoracic echocardiogram performed showed no endocarditis.COVID-19 test is negative 05/10. Repeat blood culture is negative till date. On vancomycin. Ceftriaxone and azithromycin dced. ID recs appreciated. Discussed with patients daughter Violet ([phone]) today. 05/11. Repeat blood cultures remain negative. PICC line ordered as patient will need 6 on IV vancomycin. Patient prefers home antibiotics. Possible discharge today if antibiotics set up. Discussed with telehealth case manager 05/12. Patient will be going to a facility instead of home. Awaiting insurance authorization prior to transfer. She will complete IV antibiotics for 6 weeks. 05/13. Sleeping this AM. Plan for DC home with home antibiotics. CM will set everything up. 05/14. She is eager to go home. Hopefully she gets home today. Still awaiting antibiotics set up. - Patient Problems (1) Bilateral pneumonia Current Visit: Yes Status: Acute Plan to address problem: Continue vancomycin. Blood culture remains negative. Plan on 6 weeks IV vancomycin. PICC line ordered ID recommendations appreciated Pulmonology follow-up at discharge Needs to have a repeat chest imaging in 2-3 weeks after discharge to reevaluate. (2) COPD exacerbation Onset Date: 10/14/13 Current Visit: Yes Status: Acute Plan to address problem: Taper solumedrol Bronchodilators Pulmonology follow-up at discharge (3) Duodenitis Current Visit: Yes Status: Acute Plan to address problem: Continue PPI. (4) UTI (urinary tract infection) Current Visit: Yes Status: Acute Qualifiers: Encounter type: initial encounter Plan to address problem: Continue antibiotics (5) Acute on chronic respiratory failure with hypoxemia Current Visit: No Status: Acute Plan to address problem: Continue oxygen supplementation (6) Staphylococcus aureus bacteremia Current Visit: Yes Status: Acute Plan to address problem: TTE negative for endocarditis Continue IV vancomycin. Plan for 6 weeks course PICC line in ID recs appreciated (7) Staphylococcus aureus infection Current Visit: Yes Status: Acute Plan to address problem: On vancomycin. Will complete antibiotics in 6 weeks TTE negative Repeat BC is negative ID following (8) Elevated d-dimer Current Visit: Yes Status: Acute Plan to address problem: US LE doppler - negative for DVT She has an IV filter. Doubt any PE at this time. (9) DVT prophylaxis Current Visit: Yes Status: Acute Plan to address problem: Heparin/Lovenox History Interval history: See assessment and plan Hospitalist Physical - Constitutional Vitals: Temp Pulse Resp BP Pulse Ox 97.6 F 113 H 18 118/80 96 05/14/20 05:18 05/14/20 05:18 05/14/20 05:18 05/14/20 05:18 05/14/20 08:34 General appearance: Present: no acute distress, obese - EENT Eyes: Present: PERRL - Neck Neck: Present: supple - Respiratory Respiratory: bilateral: CTA - Cardiovascular Heart Sounds: Present: S1 & S2 - Extremities Extremities: No edema - Abdominal General gastrointestinal: soft, non-tender, non-distended - Psychiatric Psychiatric: appropriate mood/affect - Neurologic Neurologic: CNII-XII intact Results - Labs CBC & Chem 7: 05/10/20 09:15 05/10/20 09:15 Labs: Laboratory Last Values WBC 12.7 K/mm3 (4.5-11.0) H 05/10/20 09:15 RBC 3.24 M/mm3 (3.65-5.03) L 05/10/20 09:15 Hgb 9.8 gm/dl (10.1-14.3) L 05/10/20 09:15 Hct 29.5 % (30.3-42.9) L 05/10/20 09:15 MCV 91 fl (79-97) 05/10/20 09:15 MCH 30 pg (28-32) 05/10/20 09:15 MCHC 33 % (30-34) 05/10/20 09:15 RDW 14.9 % (13.2-15.2) 05/10/20 09:15 Plt Count 233 K/mm3 (140-440) 05/10/20 09:15 Lymph % (Auto) Keymodule Assembly Supervisor 05/10/20 09:15 [place] % (Auto) Keymodule Assembly Supervisor 05/10/20 09:15 Eos % (Auto) Keymodule Assembly Supervisor 05/10/20 09:15 Baso % (Auto) Keymodule Assembly Supervisor 05/10/20 09:15 Lymph # Keymodule Assembly Supervisor 05/10/20 09:15 [place] # Keymodule Assembly Supervisor 05/10/20 09:15 Eos # Keymodule Assembly Supervisor 05/10/20 09:15 Baso # Keymodule Assembly Supervisor 05/10/20 09:15 Add Manual Diff Complete 05/10/20 09:15 Total Counted 100 05/10/20 09:15 Seg Neutrophils % Keymodule Assembly Supervisor 05/10/20 09:15 Seg Neuts % (Manual) 74.0 % (40.0-70.0) H 05/10/20 09:15 Band Neutrophils % 5.0 % 05/10/20 09:15 Lymphocytes % (Manual) 5.0 % (13.4-35.0) L 05/10/20 09:15 Reactive Lymphs % (Man) 1.0 % 05/10/20 09:15 Monocytes % (Manual) 6.0 % (0.0-7.3) 05/10/20 09:15 Eosinophils % (Manual) 0 % (0.0-4.3) 05/10/20 09:15 Basophils % (Manual) 0 % (0.0-1.8) 05/10/20 09:15 Metamyelocytes % 8.0 % 05/10/20 09:15 Myelocytes % 1.0 % 05/10/20 09:15 Promyelocytes % 0 % 05/10/20 09:15 Blast Cells % 0 % 05/10/20 09:15 Nucleated RBC % Not Reportable 05/10/20 09:15 Seg Neutrophils # Keymodule Assembly Supervisor 05/10/20 09:15 Seg Neutrophils # Man 9.4 K/mm3 (1.8-7.7) H 05/10/20 09:15 Band Neutrophils # 0.6 K/mm3 05/10/20 09:15 Lymphocytes # (Manual) 0.6 K/mm3 (1.2-5.4) L 05/10/20 09:15 Abs React Lymphs (Man) 0.1 K/mm3 05/10/20 09:15 Monocytes # (Manual) 0.8 K/mm3 (0.0-0.8) 05/10/20 09:15 Eosinophils # (Manual) 0.0 K/mm3 (0.0-0.4) 05/10/20 09:15 Basophils # (Manual) 0.0 K/mm3 (0.0-0.1) 05/10/20 09:15 Metamyelocytes # 1.0 K/mm3 05/10/20 09:15 Myelocytes # 0.1 K/mm3 05/10/20 09:15 Promyelocytes # 0.0 K/mm3 05/10/20 09:15 Blast Cells # 0.0 K/mm3 05/10/20 09:15 WBC Morphology Not Reportable 05/10/20 09:15 Hypersegmented Neuts Not Reportable 05/10/20 09:15 Hyposegmented Neuts Not Reportable 05/10/20 09:15 Hypogranular Neuts Not Reportable 05/10/20 09:15 Smudge Cells Not Reportable 05/10/20 09:15 Toxic Granulation Not Reportable 05/10/20 09:15 Toxic Vacuolation Not Reportable 05/10/20 09:15 Dohle Bodies Not Reportable 05/10/20 09:15 Pelger-Huet Anomaly Not Reportable 05/10/20 09:15 Dianne Rods Not Reportable 05/10/20 09:15 Platelet Estimate Consistent w auto 05/10/20 09:15 Clumped Platelets Rare 05/10/20 09:15 Plt Clumps, EDTA Not Reportable 05/10/20 09:15 Large Platelets Not Reportable 05/10/20 09:15 Giant Platelets Not Reportable 05/10/20 09:15 Platelet Satelliting Not Reportable 05/10/20 09:15 Plt Morphology Comment Not Reportable 05/10/20 09:15 RBC Morphology Normal 05/10/20 09:15 Dimorphic RBCs Not Reportable 05/10/20 09:15 Polychromasia Not Reportable 05/10/20 09:15 Hypochromasia Not Reportable 05/10/20 09:15 Poikilocytosis Not Reportable 05/10/20 09:15 Anisocytosis Not Reportable 05/10/20 09:15 Microcytosis Not Reportable 05/10/20 09:15 Macrocytosis Not Reportable 05/10/20 09:15 Spherocytes Not Reportable 05/10/20 09:15 Pappenheimer Bodies Not Reportable 05/10/20 09:15 Sickle Cells Not Reportable 05/10/20 09:15 Target Cells Not Reportable 05/10/20 09:15 Tear Drop Cells Not Reportable 05/10/20 09:15 Ovalocytes Not Reportable 05/10/20 09:15 Helmet Cells Not Reportable 05/10/20 09:15 [place] Bodies Not Reportable 05/10/20 09:15 Robinson Rings Not Reportable 05/10/20 09:15 [place] Cells Not Reportable 05/10/20 09:15 Bite Cells Not Reportable 05/10/20 09:15 Crenated Cell Not Reportable 05/10/20 09:15 Elliptocytes Not Reportable 05/10/20 09:15 Acanthocytes (Spur) Not Reportable 05/10/20 09:15 Rouleaux Not Reportable 05/10/20 09:15 Hemoglobin C Crystals Not Reportable 05/10/20 09:15 Schistocytes Not Reportable 05/10/20 09:15 Malaria parasites Not Reportable 05/10/20 09:15 Rah Bodies Not Reportable 05/10/20 09:15 Hem Pathologist Commnt No 05/10/20 09:15 PT 15.4 Sec. (12.2-14.9) H 05/06/20 15:54 INR 1.19 (0.87-1.13) H 05/06/20 15:54 APTT 25.4 Sec. (24.2-36.6) 05/06/20 15:54 D-Dimer 2749.54 ng/mlDDU (0-234) H 05/06/20 18:25 Sodium 140 mmol/L (137-145) 05/10/20 09:15 Potassium 5.2 mmol/L (3.6-5.0) H 05/10/20 09:15 Chloride 101.2 mmol/L (98-107) 05/10/20 09:15 Carbon Dioxide 25 mmol/L (22-30) 05/10/20 09:15 Anion Gap 19 mmol/L 05/10/20 09:15 BUN 21 mg/dL (7-17) H 05/10/20 09:15 Creatinine 0.5 mg/dL (0.6-1.2) L 05/10/20 09:15 Estimated GFR > 60 ml/min 05/10/20 09:15 BUN/Creatinine Ratio 42 % 05/10/20 09:15 Glucose 102 mg/dL (65-100) H 05/10/20 09:15 POC Glucose 138 (70-105) H 05/06/20 22:48 Calcium 8.2 mg/dL (8.4-10.2) L 05/10/20 09:15 Ferritin 880.5 ng/mL (10.0-200.0) H 05/06/20 18:25 Total Bilirubin 0.30 mg/dL (0.1-1.2) 05/10/20 09:15 AST 27 units/L (5-40) 05/10/20 09:15 ALT 29 units/L (7-56) 05/10/20 09:15 Alkaline Phosphatase 77 units/L (35-129) 05/10/20 09:15 Lactate Dehydrogenase 212 units/L (91-180) H 05/06/20 18:25 C-Reactive Protein 28.40 mg/dL (0.00-1.30) H 05/06/20 18:25 Total Protein 6.1 g/dL (6.3-8.2) L 05/10/20 09:15 Albumin 2.8 g/dL (3.9-5) L 05/10/20 09:15 Albumin/Globulin Ratio 0.8 % 05/10/20 09:15 Lipase 10 units/L (13-60) L 05/06/20 15:54 Procalcitonin 1.89 ng/mL (<0.15) 05/06/20 18:25 Urine Color Corazon (Yellow) 05/06/20 Unknown Urine Turbidity Slightly-cloudy (Clear) 05/06/20 Unknown Urine pH 5.0 (5.0-7.0) 05/06/20 Unknown Ur Specific [place] 1.029 (1.003-1.030) 05/06/20 Unknown Urine Protein >500 mg/dL (Negative) 05/06/20 Unknown Urine Glucose (UA) Neg mg/dL (Negative) 05/06/20 Unknown Urine Ketones Neg mg/dL (Negative) 05/06/20 Unknown Urine Blood Mod (Negative) 05/06/20 Unknown Urine Nitrite Neg (Negative) 05/06/20 Unknown Urine Bilirubin Sm (Negative) 05/06/20 Unknown Urine Ictotest Positive (Negative) 05/06/20 Unknown Urine Urobilinogen 4.0 mg/dL (<2.0) 05/06/20 Unknown Ur Leukocyte Esterase Tr (Negative) 05/06/20 Unknown Urine WBC (Auto) 29.0 /HPF (0.0-6.0) H 05/06/20 Unknown Urine RBC (Auto) 5.0 /HPF (0.0-6.0) 05/06/20 Unknown U Epithel Cells (Auto) 3.0 /HPF (0-13.0) 05/06/20 Unknown Urine Mucus 2+ /HPF 05/06/20 Unknown Vancomycin Trough 15.9 ug/mL (5.0-20.0) 05/12/20 21:26 Coronavirus (PCR) Negative (Negative) 05/07/20 08:18 Microbiology: Microbiology 05/08/20 19:20 Peripheral/Venous Blood Culture - Final NO GROWTH AFTER 5 DAYS 05/08/20 19:20 Peripheral/Venous Blood Culture - Final NO GROWTH AFTER 5 DAYS - Diagnostic Impressions Diagnostic Impressions: Echocardiogram 05/08/20 13:11 Transthoracic Echocardiogram Indication: Endocarditis BP: 122/57 HR: 79 Conclusions *The left ventricular chamber size is normal. *Global left ventricular wall motion and contractility are within normal limits. *Global left ventricular systolic function is normal. *The estimated ejection fraction is 55-60%. *Abnormal left ventricular diastolic filling is observed, consistent with impaired relaxation. *The left atrial chamber size is normal. *The right ventricular cavity size is normal. *There is mitral annular calcification. *The right ventricular systolic pressure is calculated at 26 mmHg. *No obvious vegetations noted. Findings Left Ventricle: The left ventricular chamber size is normal. Global left ventricular wall motion and contractility are within normal limits. Global left ventricular systolic function is normal. The estimated ejection fraction is 55-60%. Abnormal left ventricular diastolic filling is observed, consistent with impaired relaxation. Left Atrium: The left atrial chamber size is normal. Right Ventricle: The right ventricular cavity size is normal. Right Atrium: The right atrial cavity size is normal. Aortic Valve: Mild aortic leaflet calcification is visualized. There is no evidence of aortic regurgitation. Mitral Valve: There is mitral annular calcification. Mild mitral leaflet calcification is visualized. There is trace of mitral regurgitation. Tricuspid Valve: The tricuspid valve leaflets are normal. There is trace tricuspid regurgitation. The right ventricular systolic pressure is calculated at 26 mmHg. Pulmonic Valve: The pulmonic valve appears normal. There is trace pulmonic regurgitation. Pericardium: There is no pericardial effusion. Aorta: The aorta appears normal. Venous: The inferior vena cava appears normal. Measurements Chambers 2D Name Value Normal Range IVSd (2D) 1.04 cm (0.6 - 1.1) LVPWd (2D) 1.07 cm (0.6 - 1.1) LVIDd (2D) 4.91 cm (3.7 - 5.6) LVIDs (2D) 3.35 cm (2 - 3.8) LV FS (2D) 31.74 % - EF Teichholz (2D) 59.57 % - Ao root diameter (2D) 3.16 cm (2 - 3.7) Volumes/Mass Name Value Normal Range LA ESV SP 4CH (A/L) 19.49 ml - LA ESV SP 2CH (A/L) 32.44 ml - LA ESV BP (A/L) 27.53 ml - LA ESV BP (A/L) index 14.88 ml/m2 - LA ESV SP 4CH (MOD) 19.11 ml - LA ESV SP 2CH (MOD) 30.88 ml - LA ESV BP (MOD) 26.52 ml - LA ESV BP (MOD) index 14.34 ml/m2 - Diastolic/Systolic Function Name Value Normal Range MV E-wave Vmax 0.7 m/sec - MV deceleration time 237.16 msec - MV A-wave Vmax 0.97 m/sec - MV E:A ratio 0.72 ratio - Aortic Valve Name Value Normal Range AV Vmax 1.46 m/sec - AV VTI 29.89 cm - AV peak gradient 8.54 mmHg - AV mean gradient 4.54 mmHg - LVOT diameter 2.07 cm - LVOT Vmax 1.26 m/sec - LVOT VTI 25.36 cm - LVOT peak gradient 6.4 mmHg - LVOT mean gradient 3.45 mmHg - SV LVOT 85.3 ml - LINDA (continuity Vmax) 2.91 cm2 - LINDA (continuity VTI) 2.85 cm2 - Mitral Valve Name Value Normal Range MR Vmax 4.4 m/sec - Tricuspid Valve Name Value Normal Range TR Vmax 2.42 m/sec - TR peak gradient 23 mmHg - RAP 3 mmHg - RVSP 26 mmHg - IVC diameter 2.26 cm (1.2 - 2.3) Pulmonic Valve/Qp:Qs Name Value Normal Range PV Vmax 0.72 m/sec - PV peak gradient 2.09 mmHg - [place] end-diastolic Vmax 0.91 m/sec - PV acceleration time 98.95 msec - Richard/IV: Voiding Method Toilet IV Catheter Type [Right Upper PICC Line arm] IV Catheter Type [Left Upper INT / Saline Lock arm] IV Catheter Type [Left Forearm INT / Saline Lock ] IV Catheter Type [Left Hand] INT / Saline Lock Active Medications - Current Medications Current Medications: Generic Name Dose Route Start Last Admin Trade Name Freq PRN Reason Stop Dose Admin Acetaminophen 650 mg 05/06/20 18:33 05/09/20 18:38 Tylenol PO 650 mg Q4H PRN Administration Pain MILD(1-3)/Fever >100.5/VOGEL Al Hydrox/Mg Hydrox/Simethicone 30 ml 05/07/20 13:35 05/07/20 13:55 Alum-Mag Hydrox-Simeth [phone]/5ml PO 30 ml Q4H PRN Administration Indigestion Donepezil HCl 5 mg 05/07/20 22:00 05/13/20 23:26 Aricept PO 5 mg QHS ANGE Administration Guaifenesin 200 mg 05/07/20 20:12 05/11/20 22:55 Robitussin PO 200 mg Q6H PRN Administration Cough Heparin Sodium (Porcine) 5,000 unit 05/09/20 14:00 05/14/20 06:35 Heparin SUB-Q 5,000 unit Q8HR ANGE Administration Vancomycin HCl 1,250 mg/ 275 mls @ 166.667 mls/hr 05/11/20 10:00 05/14/20 09:19 Sodium Chloride IV 166.667 mls/hr Q12HR ANGE Administration Ipratropium Council 0.5 mg 05/14/20 08:00 05/14/20 08:33 Atrovent IH Not Given TIDRT ANGE Methylprednisolone Sodium Succinate 40 mg 05/10/20 22:00 05/14/20 09:10 Solu-Medrol IV 40 mg Q12HR ANGE Administration Nicotine 14 mg 05/07/20 11:00 05/14/20 09:10 Habitrol TD 14 mg QDAY ANGE Administration Ondansetron HCl 4 mg 05/07/20 10:19 05/07/20 11:13 Zofran IV 4 mg Q4H PRN Administration Nausea And Vomiting Pantoprazole Sodium 40 mg 05/06/20 22:00 05/14/20 09:10 Protonix PO 40 mg BID ANGE Administration Quetiapine Fumarate 400 mg 05/07/20 22:00 05/13/20 23:23 Seroquel PO 400 mg HS ANGE Administration Sodium Chloride 10 ml 05/06/20 22:00 05/14/20 09:13 Sodium Chloride Flush Syringe 10 Ml IV 10 ml BID ANGE Administration Sodium Chloride 10 ml 05/06/20 18:33 Sodium Chloride Flush Syringe 10 Ml IV PRN PRN LINE FLUSH Tramadol HCl 50 mg 05/07/20 13:34 05/14/20 09:39 Ultram PO 50 mg Q6H PRN Administration Pain, Moderate (4-6) Nutrition/Malnutrition Assess - Dietary Evaluation Nutrition/Malnutrition Findings: Nutrition Notes Start: 05/07/20 10:32 Freq: Status: Active Protocol: Document 05/10/20 15:38 LM (Rec: 05/10/20 15:43 LM [id number]) Nutrition Notes Need for Assessment generated from: MD Order,supervisor contact lens,MST Initial or Follow up Reassessment Current Diagnosis COPD,Hypertension,Respiratory Failure Other Pertinent Diagnosis pneu, duodinitis, UTI, nicotine dependence Current Diet cardiac Labs/Tests Reviewed Pertinent Medications Solu-Medrol Height 5 ft 3 in Weight 82.3 kg [place] Body Weight (kg) 52.27 BMI 32.1 Weight Status Obese Subjective/Other Information Unable to reach pt by phone. No intakes in chart today. pt with 75-100% intakes yesterday . Percent of energy/protein needs met: 100%/100% Burn Absent Trauma Absent Minimum of two criteria No Energy Intake (non-severe) <75% Estimated Energy Requirement >7 days #1 Nutrition Diagnosis Inadequate oral intake As Evidenced by Signs and Symptoms pt with 75-100% intakes in chart Diagnosis Progress(for reassessment Improved documentation) Is patient on ventilator? No Is Patient Ambulatory and/or Out of Bed Yes REE-(Palo-St. Jeor-ambulatory/OOB) [ 1725.269 NUTR.MSJOOB] Kcal/Kg value to use for calculation 18 Approximate Energy Requirements Using 1481 kcal/Kg Calculation Used for Recommendations Kcal/kg Additional Notes Protein: 67-80g (1-1.2g/ kgusing AdjBW 67kg) Fluid: 1ml/kcal or per MD Nutrition Intervention Change Diet Order: continue Add Supplement/Snack (indicate name/kcal D/C /protein ) Goal #1 Meet at least 75% of energy and protein needs Anticipated Discharge Needs: cardiac Follow-Up By: 05/16/20 Additional Comments F/U for stable intakes
[2020-05-14] MEDS: DONEPEZIL 5 MG TAB PO SCH (21:14)
[2020-05-14] MEDS: QUEtiapine 200 MG TAB PO SCH (21:14)
[2020-05-14] MEDS: guaiFENesin 200 MG TAB PO PRN (22:00)
[2020-05-15] MEDS: HEPARIN 5,000 UNIT/1 ML VIAL SUB-Q SCH ×3 (06:31→22:07)
[2020-05-15] MEDS: IPRATROPIUM 0.02% NEBU 2.5 ML IH SCH ×3 (08:29→21:31)
--- NOTE | 2020-05-15 09:56 | Discharge Summary ---
Providers - Providers Date of Admission: 05/06/20 18:33 Date of discharge: 05/15/20 Attending physician: TYSHAWN CUETO 05/06/20 18:19 Consult to Physician [CONS] Urgent Comment: Consulting Provider: LORE BALLARD Physician Instructions: Reason For Exam: pneumonia, r/o covid, uti 05/07/20 04:33 Physical Therapy Evaluation and Treat [CONS] Routine Comment: Reason For Exam: bilateral leg weakness 05/11/20 06:54 Consult to PICC Line RN [CONS] Routine Reason For Exam: halfway IV antibiotics Type Line:: PICC 05/11/20 12:40 Consult to Case Management [CONS] Routine Services Needed at Discharge: Other Notified:: CM Comment:: IV abx at home Additional Physician Instructions: [facility] ([facility]) O: [phone] F: [phone] OUTPATIENT PARENTERAL ANTIBIOTIC THERAPY (OPAT) ORDERS Diagnoses: MRSA bacteremia, pneumonia Antimicrobial administration: - IV vancomycin 1.25 g every 12 hours for 6 weeks ending 06/20/2020. -Target vancomycin trough between 10 to 20 mcg/mL - Remove PICC line after last dose. Lines: Maintain IV access with weekly dressing changes and locks per protocol. Lab monitoring: - CBC with differential, Creatinine, ALT, AST, Vancomycin trough, CRP once a week every Friday while on IV antibiotics. - Please fax results to [phone] and call [phone] for critical lab results. MD [facility] Primary care physician: MITCHELL GUEVARA Hospitalization Condition: Stable Hospital course: 69 YO Female with HTN, GERD, HCV, OA, Depression, COPD, Vascular Dementia, JUANITA on CPAP, Nicotine Dependence, Chronic Respiratory Failure on 3L Home Oxygen who presented to ED for evaluation of worsening shortness of breath, weakness, abdominal discomfort, nausea, multiple episodes of vomiting, malaise, decreased exercise tolerance 3 days prior to presentation. Upon arrival of the EMS, the patient was found to be in distress and the patient was subsequently transported to [facility] for further care and evaluation. Pt seen and evaluated in ED. Chest x-ray revealed bilateral pneumonia. The patient was found to have acute on Chronic Hypoxemic Respiratory Failure requiring increase in supplemental oxygen requirement, as well as urinary tract infection. A CT scan of the abdomen and pelvis was conducted and the patient was found to have evidence of duodenitis. Patient initiated on COVID-19 protocol in the emergency department. Infectious disease service consulted in ED. 05/09. Patient noted to have staph bacteremia. ID on board. Patient is on vancomycin, ceftriaxone and azithromycin. Repeat blood cultures have been sent. Transthoracic echocardiogram performed showed no endocarditis.COVID-19 test is negative 05/10. Repeat blood culture is negative till date. On vancomycin. Ceftriaxone and azithromycin dced. ID recs appreciated. Discussed with patients daughter Violet ([phone]) today. 05/11. Repeat blood cultures remain negative. PICC line ordered as patient will need 6 on IV vancomycin. Patient prefers home antibiotics. Possible discharge today if antibiotics set up. Discussed with case reviewer 05/12. Patient will be going to a facility instead of home. Awaiting insurance authorization prior to transfer. She will complete IV antibiotics for 6 weeks. 05/13. Sleeping this AM. Plan for DC home with home antibiotics. CM will set everything up. 05/14. She is eager to go home. Hopefully she gets home today. Still awaiting antibiotics set up. 05/15. Stable for DC. Hopefully antibiotics gets arranged. She is eager to return home Disposition: DC-30 STILL A PATIENT - Discharge Diagnoses (1) Bilateral pneumonia Status: Acute (2) COPD exacerbation Status: Acute Comment: resolved (3) Duodenitis Status: Acute (4) UTI (urinary tract infection) Status: Acute Qualifiers: Encounter type: initial encounter (5) Acute on chronic respiratory failure with hypoxemia Status: Acute (6) Staphylococcus aureus bacteremia Status: Acute (7) Staphylococcus aureus infection Status: Acute (8) Elevated d-dimer Status: Acute (9) DVT prophylaxis Status: Acute Core Measure Documentation - Palliative Care Palliative Care/ Comfort Measures: Not Applicable - Core Measures Any of the following diagnoses?: none Exam - Constitutional Vitals: Temp Pulse Resp BP Pulse Ox 98.0 F 82 16 126/65 96 05/15/20 05:07 05/15/20 08:29 05/15/20 08:29 05/15/20 05:07 05/15/20 08:34 General appearance: Present: no acute distress, well-nourished - EENT Eyes: Present: PERRL ENT: hearing intact, clear oral mucosa - Neck Neck: Present: supple, normal ROM - Respiratory Respiratory effort: normal Respiratory: bilateral: CTA - Cardiovascular Heart Sounds: Present: S1 & S2. Absent: rub, click - Extremities Extremities: pulses symmetrical, No edema Peripheral Pulses: within normal limits - Abdominal General gastrointestinal: Present: soft, non-tender, non-distended, normal bowel sounds Female genitourinary: Present: normal - Integumentary Integumentary: Present: clear, warm, dry - Musculoskeletal Musculoskeletal: gait normal, strength equal bilaterally - Psychiatric Psychiatric: appropriate mood/affect, intact judgment & insight - Neurologic Neurologic: CNII-XII intact, moves all extremities Plan Diet: low salt Additional Instructions: Complete antibiotics. Follow up with infectious disease in the clinic. Follow up with: MITCHELL GUEVARA MD [Primary Care Provider] - 3-5 Days MICAELA JI MD [Staff Physician] - 7 Days Prescriptions: predniSONE [Deltasone] 20 mg PO QDAY #5 tab QUEtiapine [SEROquel] 400 mg PO HS #30 tablet
[2020-05-15] MEDS: NICOTINE 14 MG/24 HR PATCH TD SCH (10:05)
[2020-05-15] MEDS: PANTOPRAZOLE 40 MG TAB PO SCH ×2 (10:05→21:55)
[2020-05-15] MEDS: methylPREDNISolone Sod Succinate 40 MG/1 ML INJ IV SCH ×2 (10:05→21:55)
[2020-05-15] MEDS: VANCOMYCIN 1,250 MG in SODIUM CHLORIDE 0.9% 250ML 250 ML IV SCH ×2 (10:06→21:54)
[2020-05-15 17:00] LABS: Blood Urea Nitrogen 17 mg/dL (7-17); Hemolysis Index 30
[2020-05-15 17:09] LABS: BUN/Creatinine Ratio 34
[2020-05-15] MEDS: QUEtiapine 200 MG TAB PO SCH (21:55)
[2020-05-15] MEDS: DONEPEZIL 5 MG TAB PO SCH (21:56)
[2020-05-16] MEDS: HEPARIN 5,000 UNIT/1 ML VIAL SUB-Q SCH ×3 (06:22→21:57)
[2020-05-16] MEDS: IPRATROPIUM 0.02% NEBU 2.5 ML IH SCH ×3 (08:01→21:27)
[2020-05-16] MEDS: methylPREDNISolone Sod Succinate 40 MG/1 ML INJ IV SCH ×2 (09:29→21:56)
[2020-05-16] MEDS: PANTOPRAZOLE 40 MG TAB PO SCH ×2 (09:29→21:57)
[2020-05-16] MEDS: VANCOMYCIN 1,250 MG in SODIUM CHLORIDE 0.9% 250ML 250 ML IV SCH ×2 (09:30→22:05)
[2020-05-16] MEDS: NICOTINE 14 MG/24 HR PATCH TD SCH (09:30)
[2020-05-16] MEDS: traMADol 50 MG TAB PO PRN (10:58)
--- NOTE | 2020-05-16 15:46 | Event Note ---
Date: 05/16/20
[2020-05-16] MEDS: QUEtiapine 200 MG TAB PO SCH (21:56)
[2020-05-16] MEDS: DONEPEZIL 5 MG TAB PO SCH (21:57)
[2020-05-17] MEDS: HEPARIN 5,000 UNIT/1 ML VIAL SUB-Q SCH ×2 (05:48→14:26)
[2020-05-17] MEDS: IPRATROPIUM 0.02% NEBU 2.5 ML IH SCH ×2 (09:14→15:17)
--- NOTE | 2020-05-17 10:07 | Progress Note ---
Assessment and Plan -- Bilateral pneumonia Continue vancomycin. Blood culture remains negative. Plan on 6 weeks IV vancomycin. PICC line ordered ID recommendations appreciated Pulmonology follow-up at discharge Needs to have a repeat chest imaging in 2-3 weeks after discharge to reevaluate. --COPD exacerbation Taper solumedrol Bronchodilators Pulmonology follow-up at discharge --GERD with duodenitis Continue PPI. -- UTI (urinary tract infection) Continue antibiotics -- Acute on chronic respiratory failure with hypoxemia Continue oxygen supplementation -- Staphylococcus aureus bacteremia TTE negative for endocarditis Continue IV vancomycin. Plan for 6 weeks course PICC line in place ID recs appreciated -- Staphylococcus aureus infection On vancomycin. Will complete antibiotics in 6 weeks TTE negative Repeat BC is negative ID following -- Elevated d-dimer US LE doppler - negative for DVT She has an IV filter. Doubt any PE at this time. -- DVT prophylaxis Heparin/Lovenox Brief History: 69 YO Female with HTN, GERD, HCV, OA, Depression, COPD, Vascular Dementia, JUANITA on CPAP, Nicotine Dependence, Chronic Respiratory Failure on 3L Home Oxygen who presented to ED for evaluation of worsening shortness of breath, weakness, abdominal discomfort, nausea, multiple episodes of vomiting, malaise, decreased exercise tolerance 3 days prior to presentation. Upon arrival of the EMS, the patient was found to be in distress and the patient was subsequently transported to [facility] for further care and evaluation. Pt seen and evaluated in ED. Chest x-ray revealed bilateral pneumonia. The patient was found to have acute on Chronic Hypoxemic Respiratory Failure requiring increase in supplemental oxygen requirement, as well as urinary tract infection. A CT scan of the abdomen and pelvis was conducted and the patient was found to have evidence of duodenitis. Patient initiated on COVID-19 protocol in the emergency department. Infectious disease service consulted in ED. 05/09. Patient noted to have staph bacteremia. ID on board. Patient is on vancomycin, ceftriaxone and azithromycin. Repeat blood cultures have been sent. Transthoracic echocardiogram performed showed no endocarditis.COVID-19 test is negative 05/10. Repeat blood culture is negative till date. On vancomycin. Ceftriaxone and azithromycin dced. ID recs appreciated. Discussed with patients daughter Violet ([phone]) today. 05/11. Repeat blood cultures remain negative. PICC line ordered as patient will need 6 on IV vancomycin. Patient prefers home antibiotics. Possible discharge today if antibiotics set up. Discussed with shoe parts caser 05/12. Patient will be going to a facility instead of home. Awaiting insurance authorization prior to transfer. She will complete IV antibiotics for 6 weeks. 05/13. Sleeping this AM. Plan for DC home with home antibiotics. CM will set everything up. 05/14. She is eager to go home. Hopefully she gets home today. Still awaiting antibiotics set up. 05/15. Stable for DC. Hopefully antibiotics gets arranged. She is eager to return home 05/16; d/c pending on home iv abx set up Subjective Date of service: 05/16/20 Interval history: Patient seen and examined. Medical records and medication list reviewed. No acute event overnight noted by the RN. Patient denies any chest pain or difficulty breathing. Patient is tolerating diet. Discussed plan of care at bedside with patient. Objective - Exam Narrative Exam: General appearance: Present: no acute distress, obese - EENT Eyes: Present: PERRL - Neck Neck: Present: supple - Respiratory Respiratory: bilateral: CTA - Cardiovascular Heart Sounds: Present: S1 & S2 - Extremities Extremities: No edema - Abdominal General gastrointestinal: soft, non-tender, non-distended - Psychiatric Psychiatric: appropriate mood/affect - Neurologic Neurologic: CNII-XII intact - Constitutional Vitals: Vital Signs - 12hr 05/17/20 05/17/20 05/17/20 04:43 09:14 09:16 Temperature 98.6 F Pulse Rate 80 Pulse Rate [ 94 H Anterior Bilateral Throughout] Respiratory 20 Rate Respiratory 16 Rate [Anterior Bilateral Throughout] Blood Pressure 133/74 O2 Sat by Pulse 99 94 Oximetry - Labs CBC & Chem 7: 05/10/20 09:15 05/15/20 16:13
[2020-05-17] MEDS: VANCOMYCIN 1,250 MG in SODIUM CHLORIDE 0.9% 250ML 250 ML IV SCH (10:14)
[2020-05-17] MEDS: PANTOPRAZOLE 40 MG TAB PO SCH (10:15)
[2020-05-17] MEDS: NICOTINE 14 MG/24 HR PATCH TD SCH (10:15)
[2020-05-17] MEDS: methylPREDNISolone Sod Succinate 40 MG/1 ML INJ IV SCH (10:15)
--- NOTE | 2020-05-17 15:33 | Discharge Summary ---
Providers - Providers Date of Admission: 05/06/20 18:33 Date of discharge: 05/17/20 Attending physician: MAXWELL LR 05/06/20 18:19 Consult to Physician [CONS] Urgent Comment: Consulting Provider: LORE BALLARD Physician Instructions: Reason For Exam: pneumonia, r/o covid, uti 05/07/20 04:33 Physical Therapy Evaluation and Treat [CONS] Routine Comment: Reason For Exam: bilateral leg weakness 05/11/20 06:54 Consult to PICC Line RN [CONS] Routine Reason For Exam: [facility] IV antibiotics Type Line:: PICC 05/11/20 12:40 Consult to Case Management [CONS] Routine Services Needed at Discharge: Other Notified:: CM Comment:: IV abx at home Additional Physician Instructions: [facility] O: [phone] F: [phone] OUTPATIENT PARENTERAL ANTIBIOTIC THERAPY (OPAT) ORDERS Diagnoses: MRSA bacteremia, pneumonia Antimicrobial administration: - IV vancomycin 1.25 g every 12 hours for 6 weeks ending 06/20/2020. -Target vancomycin trough between 10 to 20 mcg/mL - Remove PICC line after last dose. Lines: Maintain IV access with weekly dressing changes and locks per protocol. Lab monitoring: - CBC with differential, Creatinine, ALT, AST, Vancomycin trough, CRP once a week every Friday while on IV antibiotics. - Please fax results to [phone] and call [phone] for critical lab results. MD [facility] Primary care physician: MITCHELL GUEVARA Hospitalization Condition: Stable Hospital course: 69 YO Female with HTN, GERD, HCV, OA, Depression, COPD, Vascular Dementia, JUANITA on CPAP, Nicotine Dependence, Chronic Respiratory Failure on 3L Home Oxygen who presented to ED for evaluation of worsening shortness of breath, weakness, abdominal discomfort, nausea, multiple episodes of vomiting, malaise, decreased exercise tolerance 3 days prior to presentation. Upon arrival of the EMS, the patient was found to be in distress and the patient was subsequently transported to [facility] for further care and evaluation. Pt seen and evaluated in ED. Chest x-ray revealed bilateral pneumonia. The patient was found to have acute on Chronic Hypoxemic Respiratory Failure requiring increase in supplemental oxygen requirement, as well as urinary tract infection. A CT scan of the abdomen and pelvis was conducted and the patient was found to have evidence of duodenitis. Patient initiated on COVID-19 protocol in the emergency department. Infectious disease service consulted in ED. daily course: 05/09. Patient noted to have staph bacteremia. ID on board. Patient is on vancomycin, ceftriaxone and azithromycin. Repeat blood cultures have been sent. Transthoracic echocardiogram performed showed no endocarditis.COVID-19 test is negative 05/10. Repeat blood culture is negative till date. On vancomycin. Ceftriaxone and azithromycin dced. ID recs appreciated. Discussed with patients daughter Violet ([phone]) today. 05/11. Repeat blood cultures remain negative. PICC line ordered as patient will need 6 weeks on IV vancomycin for MRSA bacteremia. Patient prefers home antibiotics. Possible discharge today if antibiotics set up. Discussed with case resolution specialist 05/12. Patient will be going to a facility instead of home. Awaiting insurance authorization prior to transfer. She will complete IV antibiotics for 6 weeks. 05/13. Sleeping this AM. Plan for DC home with home antibiotics. CM will set everything up. 05/14. She is eager to go home. Hopefully she gets home today. Still awaiting antibiotics set up. 05/15. Stable for DC. Hopefully antibiotics gets arranged. She is eager to return home 05/16; d/c pending on home iv abx set up 05/17; DC home with IV antibiotics and with outpatient PT follow-up Discharge diagnosis: -- Staphylococcus aureus/MRSA bacteremia with sepsis, POA patient presented with elevated white count, tachycardia, tachypnea and low grade fever TTE negative for endocarditis, need to complete 6 weeks of IV antibiotic regimen following discharge -- Bilateral pneumonia --COPD exacerbation --GERD with duodenitis -- UTI (urinary tract infection) with MRSA -- Acute on chronic respiratory failure with hypoxemia due to COPD exacerbation and bilateral pneumonia -- Elevated d-dimer, US LE doppler - negative for DVT. She has an IV filter. -- DVT prophylaxis Heparin/Lovenox Disposition: DC/TX- HOME [facility] Time spent for discharge: 34 minutes Core Measure Documentation - Palliative Care Palliative Care/ Comfort Measures: Not Applicable - Core Measures Any of the following diagnoses?: none Exam - Physical Exam Narrative exam: General appearance: Present: no acute distress, obese - EENT Eyes: Present: PERRL - Neck Neck: Present: supple - Respiratory Respiratory: bilateral: CTA - Cardiovascular Heart Sounds: Present: S1 & S2 - Extremities Extremities: No edema - Abdominal General gastrointestinal: soft, non-tender, non-distended - Psychiatric Psychiatric: appropriate mood/affect - Neurologic Neurologic: CNII-XII intact - Constitutional Vitals: Temp Pulse Resp BP Pulse Ox 98.6 F 96 H 18 133/74 90 05/17/20 04:43 05/17/20 15:15 05/17/20 15:15 05/17/20 04:43 05/17/20 15:27 Plan Diet: low fat, low salt Additional Instructions: vacomycin iv for 6 weeks Follow up with: MICAELA JI MD [Staff Physician] - 7 Days MITCHELL GUEVARA MD [Primary Care Provider] - 3-5 Days Prescriptions: donepeziL [Aricept] 5 mg PO QHS #30 predniSONE [Deltasone] 20 mg PO QDAY #5 tab Omeprazole 20 mg PO QDAY #30 ALBUTEROL NEB's [Proventil 0.083% NEBS] 2.5 mg IH QID PRN #30 PRN Reason: Shortness Of Breath QUEtiapine [SEROquel] 400 mg PO HS #30 tablet Other Discharge Orders: Physicial Therapy (Amb) Location: None Selected
[2020-05-17 18:18] VITALS: BP 127/60
== END 2020-05-17 18:44 | disposition home health service (06) | DRG 871 ==
LOC: ED 14:58 → 3A 18:33
PROVIDERS: ADMIT Internal Medicine; ATTEND Internal Medicine
PROC: 02HV33Z Insertion of Infusion Device into Superior Vena Cava, Percutaneous Approach (ICD-10-PCS; principal; 2020-05-11)
DX: A41.02 Sepsis due to Methicillin resistant Staphylococcus aureus (principal); J18.9 Pneumonia, unspecified organism; J96.21 Acute and chronic respiratory failure with hypoxia; N39.0 Urinary tract infection, site not specified; J44.0 Chronic obstructive pulmonary disease with (acute) lower respiratory infection; J44.1 Chronic obstructive pulmonary disease with (acute) exacerbation; K29.80 Duodenitis without bleeding; K21.9 Gastro-esophageal reflux disease without esophagitis; I10 Essential (primary) hypertension; M19.90 Unspecified osteoarthritis, unspecified site; F32.9 Major depressive disorder, single episode, unspecified; F01.50 Vascular dementia, unspecified severity, without behavioral disturbance, psychotic disturbance, mood disturbance, and anxiety; G47.33 Obstructive sleep apnea (adult) (pediatric); F17.200 Nicotine dependence, unspecified, uncomplicated; Z20.828 Contact with and (suspected) exposure to other viral communicable diseases; Z83.3 Family history of diabetes mellitus; Z82.49 Family history of ischemic heart disease and other diseases of the circulatory system; Z91.041 Radiographic dye allergy status; Z79.01 Long term (current) use of anticoagulants; Z79.51 Long term (current) use of inhaled steroids; E66.9 Obesity, unspecified; Z68.27 Body mass index [BMI] 27.0-27.9, adult; Z71.89 Other specified counseling; Z90.49 Acquired absence of other specified parts of digestive tract; R79.1 Abnormal coagulation profile; E87.6 Hypokalemia; Z99.81 Dependence on supplemental oxygen
CPT/HCPCS: 36415; 70450; 71045; 74176; 80048; 80053; 80202; 81001; 82728; 82947; 82962; 83615; 83690; 84145; 85007; 85025; 85379; 85610; 85730; 86140; 87040; 87076; 87086; 87186; 93005; 93306; 93970; 94640; 94760; 96361; 96374; 96375; G0378; C9113; J0456; J0696; J1644; J2060; J2270; J2405; J2920; J2930; J3370; J7030; J7040; J7050; U0003-CS

== ENCOUNTER 2020-06-30 10:32 | Emergency (ER) | payer MEDICARE ==
[2020-06-30 10:39] VITALS: BP 104/65
[2020-06-30] MEDS ORDERED: ACETAMINOPHEN 325 MG TAB PO ONE (11:51)
[2020-06-30] MEDS ORDERED: KETOROLAC 30 MG/1 ML INJ IM ONE (11:52)
--- NOTE | 2020-06-30 12:50 | XRay Report ---
LEFT KNEE 2 VIEWS INDICATION / CLINICAL INFORMATION: knee pain. COMPARISON: Previous knee radiographs on 05/09/2020 FINDINGS: BONES/JOINT(S): Left knee arthroplasty appears unchanged in alignment from the prior exam. There does appear to be a small joint effusion which is new from prior. No evidence of loosening. SOFT TISSUES: No significant abnormality. ADDITIONAL FINDINGS: None. Signer Name: Jerrell Dangelo MD Signed: 06/30/2020 12:46 PM Workstation Name: [id number]
--- NOTE | 2020-06-30 14:13 | Emergency Department Report ---
ED Extremity Problem HPI - General Chief complaint: Extremity Problem,Nontraumatic Stated complaint: KNEE SWELLING/PAIN Time Seen by Provider: 06/30/20 11:50 Source: patient Mode of arrival: Ambulatory Limitations: No Limitations - History of Present Illness Initial comments: 69-year-old female presents to the emergency room complaining of a 3 to 4-day history of left knee pain. Patient denies any recent injury. Patient states that she has had a total knee replacement in the past. She reports she has been taking Tylenol for pain. She has a primary care provider Dr. MICHELLE Holt. She denies any recent falls. No nausea no vomiting no fever no chills. No recent travels no shortness of breath or chest pain. MD Complaint: extremity pain, extremity swelling Onset/Timin -: days(s) Location: left, knee History of Same: Yes -: Yes arthralgia Severity scale (0 -10): 10 Quality: aching Consistency: constant Improves with: nothing Worsens with: nothing Associated Symptoms: denies other symptoms - Related Data Home Medications Medication Instructions Recorded Confirmed Last Taken Apixaban [Eliquis] 5 mg PO BID 03/11/19 05/07/20 Unknown Previous Rx's Medication Instructions Recorded Last Taken Type guaiFENesin [Robitussin] 200 mg PO Q6H PRN tablet 03/16/19 Unknown Rx PARoxetine [Paxil] 40 mg PO QDAY #30 tablet 03/19/19 Unknown Rx Propranolol LA [Inderal LA] 60 mg PO QDAY #30 capsule 03/19/19 Unknown Rx Simvastatin 20 mg PO HS #30 tablet 03/19/19 Unknown Rx Docusate Sodium [Colace CAP] 100 mg PO BID PRN #60 capsule 06/20/19 Unknown Rx Lactulose 10 gm PO DAILY PRN #150 ml 06/20/19 Unknown Rx Albuterol Mdi (or & Nicu Only) 2 puff IH Q4HR PRN #1 inhalation 11/05/19 Unknown Rx [ProAir HFA Inhaler] Famotidine [Pepcid] 20 mg PO BID #30 tablet 12/06/19 Unknown Rx QUEtiapine [SEROquel] 400 mg PO HS #30 tablet 05/15/20 Unknown Rx predniSONE [Deltasone] 20 mg PO QDAY #5 tab 05/15/20 Unknown Rx ALBUTEROL NEB's [Proventil 0.083% 2.5 mg IH QID PRN #30 05/17/20 Unknown Rx NEBS] Omeprazole 20 mg PO QDAY #30 05/17/20 Unknown Rx donepeziL [Aricept] 5 mg PO QHS #30 05/17/20 Unknown Rx Meloxicam [Mobic] 7.5 mg PO QDAY #15 tablet 06/30/20 Unknown Rx Trolamine Salicylate/Aloe Vera 85 gm TP TID PRN #85 cream..g. 06/30/20 Unknown Rx [Aspercreme 10% Cream] Allergies Allergy/AdvReac Type Severity Reaction Status Date / Time Iodinated Contrast Media Allergy Itching Verified 01/09/19 17:24 [Iodinated Contrast Media - IV Dye] ivp dye Allergy Itching Uncoded 10/05/17 08:23 ED Review of Systems ROS: Stated complaint: KNEE SWELLING/PAIN Other details as noted in HPI ED Past Medical Hx - Past Medical History Previous Medical History?: Yes Hx Hypertension: Yes Hx Deep Vein Thrombosis: No Hx GERD: Yes Hx Liver Disease: Yes (HEP C, cirrohsis) Hx Arthritis: Yes Hx Psychiatric Treatment: Yes (depression) Hx COPD: Yes Hx Dementia: Yes Additional medical history: osteoporosis, sleep apnea/cpap @ night, Home O2-3L, emphysema - Surgical History Past Surgical History?: Yes Hx Pacemaker: No Hx Internal Defibrillator: No Hx Cholecystectomy: Yes Additional Surgical History: thyroid surg t&a, right leg - Social History Smoking Status: Smoker, Current Status Unknown - Medications Home Medications: Home Medications Medication Instructions Recorded Confirmed Last Taken Type Apixaban [Eliquis] 5 mg PO BID 03/11/19 05/07/20 Unknown History guaiFENesin [Robitussin] 200 mg PO Q6H PRN tablet 03/16/19 05/07/20 Unknown Rx PARoxetine [Paxil] 40 mg PO QDAY #30 tablet 03/19/19 05/07/20 Unknown Rx Propranolol LA [Inderal LA] 60 mg PO QDAY #30 capsule 03/19/19 05/07/20 Unknown Rx Simvastatin 20 mg PO HS #30 tablet 03/19/19 05/07/20 Unknown Rx Docusate Sodium [Colace CAP] 100 mg PO BID PRN #60 capsule 06/20/19 05/07/20 Unknown Rx Lactulose 10 gm PO DAILY PRN #150 ml 06/20/19 05/07/20 Unknown Rx Albuterol Mdi (or & Nicu Only) 2 puff IH Q4HR PRN #1 inhalation 11/05/19 05/07/20 Unknown Rx [ProAir HFA Inhaler] Famotidine [Pepcid] 20 mg PO BID #30 tablet 12/06/19 05/07/20 Unknown Rx QUEtiapine [SEROquel] 400 mg PO HS #30 tablet 05/15/20 Unknown Rx predniSONE [Deltasone] 20 mg PO QDAY #5 tab 05/15/20 Unknown Rx ALBUTEROL NEB's [Proventil 0.083% 2.5 mg IH QID PRN #30 05/17/20 Unknown Rx NEBS] Omeprazole 20 mg PO QDAY #30 05/17/20 Unknown Rx donepeziL [Aricept] 5 mg PO QHS #30 05/17/20 Unknown Rx Meloxicam [Mobic] 7.5 mg PO QDAY #15 tablet 06/30/20 Unknown Rx Trolamine Salicylate/Aloe Vera 85 gm TP TID PRN #85 cream..g. 06/30/20 Unknown Rx [Aspercreme 10% Cream] ED Physical Exam - General Limitations: No Limitations General appearance: alert, in no apparent distress - Head Head exam: Present: atraumatic, normocephalic - Eye Eye exam: Present: normal appearance - ENT ENT exam: Present: mucous membranes moist - Respiratory Respiratory exam: Absent: accessory muscle use - Expanded Lower Extremity Exam Left Hip exam: Present: full ROM Upper Leg exam: Present: normal inspection, full ROM Knee exam: Present: full ROM, tenderness, effusion Lower Leg exam: Present: normal inspection, abrasion, ecchymosis Ankle exam: Present: normal inspection, full ROM Foot/Toe exam: Present: normal inspection, full ROM. Absent: tenderness Neuro vascular tendon exam: Present: no vascular compromise - Back Exam Back exam: Present: normal inspection - Neurological Exam Neurological exam: Present: alert, oriented X3 - Psychiatric Psychiatric exam: Present: normal affect, normal mood - Skin Skin exam: Present: warm, dry, intact, normal color. Absent: rash ED Course Vital Signs 06/30/20 10:37 Temperature 98.2 F Pulse Rate 58 L Respiratory 20 Rate Blood Pressure 104/65 O2 Sat by Pulse 100 Oximetry ED Medical Decision Making - Radiology Data Radiology results: report reviewed Ordering Physician: CYNTHIA JIMENEZ Date of Service: 06/30/20 Procedure(s): XR knee 1-2V LT Accession Number(s): [id number] cc: CYNTHIA JIMENEZ Fluoro Time In Minutes: LEFT KNEE 2 VIEWS INDICATION / CLINICAL INFORMATION: knee pain. COMPARISON: Previous knee radiographs on 05/09/2020 FINDINGS: BONES/JOINT(S): Left knee arthroplasty appears unchanged in alignment from the prior exam. There does appear to be a small joint effusion which is new from prior. No evidence of loosening. SOFT TISSUES: No significant abnormality. ADDITIONAL FINDINGS: None. Signer Name: Jerrell Dangelo MD Signed: 06/30/2020 12:46 PM Workstation Name: [id number] Transcribed By: ADI Dictated By: Jerrell Dangelo MD Electronically Authenticated By: Jerrell Dangelo MD Signed Date/Time: 06/30/20 1246 DD/ TD/TT: - Medical Decision Making 69-year-old female presents to the emergency room complaining of a 3 to 4-day history of left knee pain. Patient denies any recent injury. Patient states that she has had a total knee replacement in the past. She reports she has been taking Tylenol for pain. She has a primary care provider Dr. MICHELLE Holt. She denies any recent falls. No nausea no vomiting no fever no chills. No recent travels no shortness of breath or chest pain. X-ray of left knee shows a small knee effusion with intact hardware. Patient was given Toradol for pain management. Discussed with patient she can continue with the Tylenol extra strength and use [id number] Aspercreme rub to her knee. Patient is to follow-up with her primary care provider. Critical care attestation.: If time is entered above; I have spent that time in minutes in the direct care of this critically ill patient, excluding procedure time. ED Disposition Clinical Impression: Osteoarthritis of left knee, Effusion, left knee Disposition: - TO HOME OR SELFCARE Is pt being admited?: No Does the pt Need Aspirin: No Condition: Stable Instructions: Osteoarthritis (ED), Knee Effusion (ED) Additional Instructions: X-ray shows you have a little fluid on your left leg. I would like for you to take the pain medication and to follow-up with your primary care provider. I also recommend using [id number] Aspercreme to your knee as this seems to help some. Prescriptions: Trolamine Salicylate/Aloe Vera [Aspercreme 10% Cream] 85 gm TP TID PRN #85 cream..g. PRN Reason: Pain, Moderate (4-6) Meloxicam [Mobic] 7.5 mg PO QDAY #15 tablet Referrals: PRIMARY CAREMD [Primary Care Provider] - 3-5 Days MITCHELL GUEVARA MD [Staff Physician] - 3-5 Days
== END 2020-06-30 14:03 | disposition home or self-care (01) ==
LOC: ED 10:32
DX: M17.12 Unilateral primary osteoarthritis, left knee (principal); M25.462 Effusion, left knee; I10 Essential (primary) hypertension; K21.9 Gastro-esophageal reflux disease without esophagitis; M19.91 Primary osteoarthritis, unspecified site; F32.9 Major depressive disorder, single episode, unspecified; J44.9 Chronic obstructive pulmonary disease, unspecified; F03.90 Unspecified dementia, unspecified severity, without behavioral disturbance, psychotic disturbance, mood disturbance, and anxiety; Z90.49 Acquired absence of other specified parts of digestive tract; Z98.890 Other specified postprocedural states; Z79.899 Other long term (current) drug therapy; Z88.8 Allergy status to other drugs, medicaments and biological substances
CPT/HCPCS: 73560; 96372; 99283; J1885

== ENCOUNTER 2020-08-05 15:01 | Emergency (ER) | payer MEDICARE ==
[2020-08-05] MEDS ORDERED: VANCOMYCIN 1,250 MG in SODIUM CHLORIDE 0.9% 500 ML 500 ML IV ONE (16:34)
[2020-08-05] MEDS ORDERED: MORPHINE 2 MG/1 ML INJ IV ONE ×3 (16:42→22:53)
[2020-08-05] MEDS ORDERED: VANCOMYCIN 1,250 MG in SODIUM CHLORIDE 0.9% 250ML 250 ML IV ONE (17:00)
--- NOTE | 2020-08-05 17:02 | Emergency Department Report ---
ED Extremity Problem HPI - General Chief complaint: Extremity Problem,Nontraumatic Stated complaint: COMPLICATION LT KNEE SURGERY Time Seen by Provider: 08/05/20 16:29 Source: patient, family (daughter nomi), EMS, old records reviewed Mode of arrival: Stretcher Limitations: No Limitations - History of Present Illness Initial comments: 70-year-old female the past medical history of hypertension, GERD, HCV, OA, depression, COPD, vascular dementia, JUANITA on CPAP, nicotine dependence, chronic respiratory failure on 3 L home oxygen, admission for MRSA bacteremia secondary to UTI with bilateral pneumonia in April, and recent left knee surgery performed at [facility] (discharged 1 week ago) presents to the hospital complaints of left knee pain. Patient has significant dementia and unable to give me any detailed history of present illness. I called patient's daughter Nomi who states that patient was just discharged from [facility] 1 week ago. She goes to an infectious disease clinic every Friday since discharge to have her IV dose of antibiotics for MRSA. She had her second IV dose yesterday as scheduled. Patient lives at home with her and the daughter comes back to check on her. She also has visiting nurses. Is unclear at this time or triggered patient to come to ER and who notified EMS. As per medical record patient has an IVC filter as well. Daughter states Dr. Sabas Bowman performed her knee surgery As per medical record patient did have a total left knee arthroplasty on September 27, [address] Hdez There is several family contact numbers on the chart please contact the daughter Nomi at [phone] regarding pt's care as needed and to provide updates. Severity scale (0 -10): 8 - Related Data Home Medications Medication Instructions Recorded Confirmed Last Taken Apixaban [Eliquis] 5 mg PO BID 03/11/19 05/07/20 Unknown Previous Rx's Medication Instructions Recorded Last Taken Type guaiFENesin [Robitussin] 200 mg PO Q6H PRN tablet 03/16/19 Unknown Rx PARoxetine [Paxil] 40 mg PO QDAY #30 tablet 03/19/19 Unknown Rx Propranolol LA [Inderal LA] 60 mg PO QDAY #30 capsule 03/19/19 Unknown Rx Simvastatin 20 mg PO HS #30 tablet 03/19/19 Unknown Rx Docusate Sodium [Colace CAP] 100 mg PO BID PRN #60 capsule 06/20/19 Unknown Rx Lactulose 10 gm PO DAILY PRN #150 ml 06/20/19 Unknown Rx Albuterol Mdi (or & Nicu Only) 2 puff IH Q4HR PRN #1 inhalation 11/05/19 Unknown Rx [ProAir HFA Inhaler] Famotidine [Pepcid] 20 mg PO BID #30 tablet 12/06/19 Unknown Rx QUEtiapine [SEROquel] 400 mg PO HS #30 tablet 05/15/20 Unknown Rx predniSONE [Deltasone] 20 mg PO QDAY #5 tab 05/15/20 Unknown Rx ALBUTEROL NEB's [Proventil 0.083% 2.5 mg IH QID PRN #30 05/17/20 Unknown Rx NEBS] Omeprazole 20 mg PO QDAY #30 05/17/20 Unknown Rx donepeziL [Aricept] 5 mg PO QHS #30 05/17/20 Unknown Rx Meloxicam [Mobic] 7.5 mg PO QDAY #15 tablet 06/30/20 Unknown Rx Trolamine Salicylate/Aloe Vera 85 gm TP TID PRN #85 cream..g. 06/30/20 Unknown Rx [Aspercreme 10% Cream] Allergies Allergy/AdvReac Type Severity Reaction Status Date / Time Iodinated Contrast Media Allergy Itching Verified 01/09/19 17:24 [Iodinated Contrast Media - IV Dye] ivp dye Allergy Itching Uncoded 10/05/17 08:23 ED Review of Systems ROS: Stated complaint: COMPLICATION LT KNEE SURGERY Other details as noted in HPI Comment: All other systems reviewed and negative ED Past Medical Hx - Past Medical History Previous Medical History?: Yes Hx Hypertension: Yes Hx Deep Vein Thrombosis: No Hx GERD: Yes Hx Liver Disease: Yes (HEP C, cirrohsis) Hx Arthritis: Yes Hx Psychiatric Treatment: Yes (depression) Hx COPD: Yes Hx Dementia: Yes Additional medical history: osteoporosis, sleep apnea/cpap @ night, Home O2-3L, emphysema, IVC filter, MRSA bacteremia - Surgical History Past Surgical History?: Yes Hx Pacemaker: No Hx Internal Defibrillator: No Hx Cholecystectomy: Yes Additional Surgical History: thyroid surg t&a, right leg - Social History Smoking Status: Current Every Day Smoker Substance Use Type: None - Medications Home Medications: Home Medications Medication Instructions Recorded Confirmed Last Taken Type Apixaban [Eliquis] 5 mg PO BID 03/11/19 05/07/20 Unknown History guaiFENesin [Robitussin] 200 mg PO Q6H PRN tablet 03/16/19 05/07/20 Unknown Rx PARoxetine [Paxil] 40 mg PO QDAY #30 tablet 03/19/19 05/07/20 Unknown Rx Propranolol LA [Inderal LA] 60 mg PO QDAY #30 capsule 03/19/19 05/07/20 Unknown Rx Simvastatin 20 mg PO HS #30 tablet 03/19/19 05/07/20 Unknown Rx Docusate Sodium [Colace CAP] 100 mg PO BID PRN #60 capsule 06/20/19 05/07/20 Unknown Rx Lactulose 10 gm PO DAILY PRN #150 ml 06/20/19 05/07/20 Unknown Rx Albuterol Mdi (or & Nicu Only) 2 puff IH Q4HR PRN #1 inhalation 11/05/19 05/07/20 Unknown Rx [ProAir HFA Inhaler] Famotidine [Pepcid] 20 mg PO BID #30 tablet 12/06/19 05/07/20 Unknown Rx QUEtiapine [SEROquel] 400 mg PO HS #30 tablet 05/15/20 Unknown Rx predniSONE [Deltasone] 20 mg PO QDAY #5 tab 05/15/20 Unknown Rx ALBUTEROL NEB's [Proventil 0.083% 2.5 mg IH QID PRN #30 05/17/20 Unknown Rx NEBS] Omeprazole 20 mg PO QDAY #30 05/17/20 Unknown Rx donepeziL [Aricept] 5 mg PO QHS #30 05/17/20 Unknown Rx Meloxicam [Mobic] 7.5 mg PO QDAY #15 tablet 06/30/20 Unknown Rx Trolamine Salicylate/Aloe Vera 85 gm TP TID PRN #85 cream..g. 06/30/20 Unknown Rx [Aspercreme 10% Cream] ED Physical Exam - General Limitations: No Limitations - Other Other exam information: General: No acute distress Head: Atraumatic Eyes: normal appearance ENT: Moist mucous membranes Neck: Normal appearance, no midline tenderness Chest: Clear to auscultation bilaterally CV: Regular rate and rhythm Abdomen: Soft, normal bowel sounds, nontender, nondistended, no rebound or guarding Back: Normal inspection Extremity: Midline vertical star noted to left anterior knee with surrounding erythema and warmth. Edema extends down to the foot with leg and ankle edema. Pain with movement of the left knee. Full range of motion of left ankle with mild pain. Neuro: Alert O x 3, no facial asymmetry, speech clear, no gross motor sensory deficit Psych: Appropriate behavior Skin: No rash ED Course Vital Signs 08/05/20 08/05/20 08/05/20 15:47 15:49 17:34 Temperature 98.5 F Pulse Rate 77 77 Respiratory 18 16 Rate Blood Pressure 114/68 Blood Pressure 120/72 [Right] O2 Sat by Pulse 97 97 98 Oximetry 08/05/20 08/05/20 08/05/20 19:50 19:55 19:59 Temperature 98.1 F Pulse Rate 97 H Respiratory 19 18 18 Rate Blood Pressure Blood Pressure 123/77 [Right] O2 Sat by Pulse 100 Oximetry 08/05/20 08/05/20 08/05/20 20:29 23:19 23:20 Temperature Pulse Rate 90 Respiratory 18 18 18 Rate Blood Pressure Blood Pressure 123/77 [Right] O2 Sat by Pulse 100 Oximetry 08/05/20 23:35 Temperature Pulse Rate Respiratory 18 Rate Blood Pressure Blood Pressure [Right] O2 Sat by Pulse Oximetry - Reevaluation(s) Reevaluation #1: 08/05/20 18:41 Pt not accepted by ortho for transfer since they have only seen the patient in the office and they just preformed a debridement. We have ortho loss prevention agent here today. I will still attempt to transfer patient to [facility] as per daughter's request. Ortho is agreeable to consult at [facility] if patient is accepted by hospitalist team. - Consultations Consultation #1: 08/05/20 17:37 Dr Bowman paged 08/05/20 18:10 received call back from Dr Alba and discussed case, awaiting call back to determine disposition 08/05/20 18:37 Dr. Alba states that he reviewed the notes and that patient had a recent debridement bilateral [facility] and their group did not do the initial knee replacement surgery (performed by Dr Hdez here in 2016 upon further medical record review). States pt does not need to be transferred due to ortho reasons. 08/05/20 19:09 case d/w Dr Shanks hospitalist at [facility] and he declined to accept the patient because they do not have any inpatient beds. I called the daughter to give her update and let her know that we are unable to transfer patient at this time. She requested to be the primary contact regarding her mother's care 08/05/20 19:33 Dr Torres requests pt to be transfered to [facility] Arash Alonso MD since they recently performed surgery 08/05/20 19:37 I called bed control at [place] to confirm they do not have any beds 08/05/20 19:45 I spoke to Jesica who suggests calling to have pt accepted pending bed availability 08/05/20 19:[address] Shanks hospitalist at [facility], He has agreed to accept the pt, info given to pocket secretary assembler to [facility]. Daughter informed of transf er plan ED Medical Decision Making - Lab Data Result diagrams: 08/05/20 16:40 08/05/20 16:40 Lab Results 08/05/20 08/05/20 08/05/20 Range/Units 16:40 16:40 16:40 WBC 7.1 (4.5-11.0) K/mm3 RBC 2.81 L (3.65-5.03) M/mm3 Hgb 8.3 L (10.1-14.3) gm/dl Hct 23.8 L (30.3-42.9) % MCV 85 (79-97) fl MCH 30 (28-32) pg MCHC 35 H (30-34) % RDW 18.4 H (13.2-15.2) % Plt Count 356 (140-440) K/mm3 Lymph % (Auto) 26.6 (13.4-35.0) % [place] % (Auto) 13.2 H (0.0-7.3) % Eos % (Auto) 3.3 (0.0-4.3) % Baso % (Auto) 1.3 (0.0-1.8) % Lymph # (Auto) 1.9 (1.2-5.4) K/mm3 [place] # (Auto) 0.9 H (0.0-0.8) K/mm3 Eos # (Auto) 0.2 (0.0-0.4) K/mm3 Baso # (Auto) 0.1 (0.0-0.1) K/mm3 Seg Neutrophils % 55.6 (40.0-70.0) % Seg Neutrophils # 4.0 (1.8-7.7) K/mm3 ESR > 140.0 (0-20) mm/Hr PT 14.3 (12.2-14.9) Sec. INR 1.12 (0.87-1.13) APTT 21.2 L (24.2-36.6) Sec. Sodium 134 L (137-145) mmol/L Potassium 3.1 L (3.6-5.0) mmol/L Chloride 100.0 (98-107) mmol/L Carbon Dioxide 23 (22-30) mmol/L Anion Gap 14 mmol/L BUN 9 (7-17) mg/dL Creatinine 0.5 L (0.6-1.2) mg/dL Estimated GFR > 60 ml/min BUN/Creatinine Ratio 18 % Glucose 85 (65-100) mg/dL Calcium 8.5 (8.4-10.2) mg/dL Total Bilirubin 0.40 (0.1-1.2) mg/dL AST 10 (5-40) units/L ALT < 5 L (7-56) units/L Alkaline Phosphatase 109 (35-129) units/L Total Protein 7.4 (6.3-8.2) g/dL Albumin 3.0 L (3.9-5) g/dL Albumin/Globulin Ratio 0.7 % - Radiology Data Radiology results: report reviewed . Left KNEE 3 VIEW(S) INDICATION / CLINICAL INFORMATION: post op infection COMPARISON: None available. FINDINGS: BONES / JOINT(S): A left total knee arthroplasty is present with anterior skin star. There is a new periprosthetic fracture involving the distal medial femoral condyle There is moderate diffuse subcutaneous soft tissue edema within left knee. IMPRESSION: Acute periprosthetic fracture involving distal medial femoral condyle DUPLEX DOPPLER LOWER EXTREMITY VEINS, LEFT INDICATION / CLINICAL INFORMATION: left leg swelling, post op infection. TECHNIQUE: Duplex doppler imaging was performed through the veins of the left lower extre mity using venous compression and other maneuvers. COMPARISON: None available. FINDINGS: LEFT COMMON FEMORAL VEIN: Negative. LEFT FEMORAL VEIN: Negative. LEFT POPLITEAL VEIN: Negative. LEFT CALF VEINS: Negative. ADDITIONAL FINDINGS: Mild edema is seen along the left leg. IMPRESSION: 1. No sonographic evidence for DVT in the left lower extremity. - Medical Decision Making 70-year-old female presents to the hospital complaining of pain to left knee. She has clinical findings of cellulitis with recent history of MRSA infection outpatient antibiotic therapy. X-ray identifies an acute medial condyle fracture of the left femur. Patient does not recall any fall injury. Patient did receive 1 dose of IV vancomycin in the ED. Is unclear the name of the antibiotic therapy she is currently receiving as an outpatient for MRSA. Left leg symptoms appear to be acute. No signs of DVT. No signs of septic shock. Elevated ESR noted. Etlan in place from recent surgery. Patient was transferred to [facility] secondary to family's request as well as continuity of care given the recent arthroscopic procedure. Patient did receive p.o. potassium for mild hypokalemia Critical Care Time: Yes Critical care time in (mins) excluding proc time.: 35 (ConsultationS/transfer arrangement) Critical care attestation.: If time is entered above; I have spent that time in minutes in the direct care of this critically ill patient, excluding procedure time. ED Disposition Clinical Impression: Cellulitis of right knee, Cellulitis of right leg, History of MRSA infection, Hypokalemia, Anemia, Closed fracture of medial condyle of left femur, S/P knee surgery Disposition: DC/TX-70 ANOTHER TYPE HLTHCARE Is pt being admited?: No Condition: Stable Time of Disposition: 23:30
[2020-08-05 17:09] LABS: Basophils # (Auto) 0.1 K/mm3 (0.0-0.1); Basophils % (Auto) 1.3 % (0.0-1.8); Eosinophils # (Auto) 0.2 K/mm3 (0.0-0.4); Eosinophils % (Auto) 3.3 % (0.0-4.3); Hematocrit 23.8 % (30.3-42.9); Hemoglobin 8.3 gm/dl (10.1-14.3); Lymphocytes # (Auto) 1.9 K/mm3 (1.2-5.4); Lymphocytes % (Auto) 26.6 % (13.4-35.0); Mean Corpuscular HGB Conc 35 % (30-34); Mean Corpuscular Volume 85 fl (79-97); Monocytes # (Auto) 0.9 K/mm3 (0.0-0.8); Monocytes % (Auto) 13.2 % (0.0-7.3); Platelet Count 356 K/mm3 (140-440); Red Blood Count 2.81 M/mm3 (3.65-5.03); Red Cell Distribution Width 18.4 % (13.2-15.2)
--- NOTE | 2020-08-05 17:12 | XRay Report ---
. Left KNEE 3 VIEW(S) INDICATION / CLINICAL INFORMATION: post op infection COMPARISON: None available. FINDINGS: BONES / JOINT(S): A left total knee arthroplasty is present with anterior skin star. There is a ne w periprosthetic fracture involving the distal medial femoral condyle There is moderate diffuse subcu taneous soft tissue edema within left knee. IMPRESSION: Acute periprosthetic fracture involving distal medial femoral condyle Signer Name: Ted Cordero MD Signed: 08/05/2020 5:08 PM Workstation Name: [id number]
[2020-08-05 17:15] LABS: Blood Urea Nitrogen 9 mg/dL (7-17); Calcium 8.5 mg/dL (8.4-10.2); Hemolysis Index 5
[2020-08-05 17:17] LABS: Alanine Aminotransferase < 5 units/L (7-56); BUN/Creatinine Ratio 18
[2020-08-05 17:19] LABS: INR 1.12 (0.87-1.13)
[2020-08-05 17:20] LABS: Partial Thromboplastin Time 21.2 Sec. (24.2-36.6)
[2020-08-05 17:29] LABS: Erythrocyte Sedimentation Rate > 140.0 mm/Hr (0-20)
[2020-08-05] MEDS ORDERED: POTASSIUM CHLORIDE ER 20 MEQ TAB PO ONE (17:31)
--- NOTE | 2020-08-05 19:09 | Vascular Lab Report ---
DUPLEX DOPPLER LOWER EXTREMITY VEINS, LEFT INDICATION / CLINICAL INFORMATION: left leg swelling, post op infection. TECHNIQUE: Duplex doppler imaging was performed through the veins of the left lower extremity using venous compr ession and other maneuvers. COMPARISON: None available. FINDINGS: LEFT COMMON FEMORAL VEIN: Negative. LEFT FEMORAL VEIN: Negative. LEFT POPLITEAL VEIN: Negative. LEFT CALF VEINS: Negative. ADDITIONAL FINDINGS: Mild edema is seen along the left leg. IMPRESSION: 1. No sonographic evidence for DVT in the left lower extremity. Signer Name: Ravi Suero MD Signed: 08/05/2020 7:04 PM Workstation Name: [id number]
[2020-08-05 20:34] VITALS: BP 123/77
== END 2020-08-05 23:35 | disposition other institution (70) ==
LOC: ED 15:01
DX: S72.432A Displaced fracture of medial condyle of left femur, initial encounter for closed fracture (principal); L03.115 Cellulitis of right lower limb; E87.6 Hypokalemia; D64.9 Anemia, unspecified; I10 Essential (primary) hypertension; K21.9 Gastro-esophageal reflux disease without esophagitis; M19.91 Primary osteoarthritis, unspecified site; F32.9 Major depressive disorder, single episode, unspecified; J44.9 Chronic obstructive pulmonary disease, unspecified; F17.200 Nicotine dependence, unspecified, uncomplicated; Z86.14 Personal history of Methicillin resistant Staphylococcus aureus infection; Z90.49 Acquired absence of other specified parts of digestive tract; Z98.890 Other specified postprocedural states; Z79.2 Long term (current) use of antibiotics; Z79.899 Other long term (current) drug therapy; Z88.8 Allergy status to other drugs, medicaments and biological substances; X58.XXXA Exposure to other specified factors, initial encounter; Y93.89 Activity, other specified; Y92.89 Other specified places as the place of occurrence of the external cause; Y99.8 Other external cause status
CPT/HCPCS: 36415; 73562; 80053; 85025; 85610; 85652; 85730; 87040; 93971; 96365; 96366; 96375; 96376; 99285; J2270; J3370; J7050

== ENCOUNTER 2020-09-08 16:02 | Emergency (ER) | payer MEDICARE ==
--- NOTE | 2020-09-08 17:23 | Event Note ---
ED Screening Note Date of service: 09/08/20 Time: 17:23 ED Screening Note: Patient complains of right upper quadrant pain x1 week Denies vomiting, admits to nausea No diarrhea No history of abdominal surgeries per patient Recent left knee surgery This initial assessment/diagnostic orders/clinical plan/treatment(s) is/are subject to change based on patients health status, clinical progression and re- assessment by fellow clinical providers in the ED. Further treatment and workup at subsequent clinical providers discretion. Patient/guardian urged not to elope from the ED as their condition may be serious if not clinically assessed and managed. Initial orders include: Labs Ultrasound
[2020-09-08 17:53] LABS: Basophils # (Auto) 0.1 K/mm3 (0.0-0.1); Basophils % (Auto) 1.2 % (0.0-1.8); Eosinophils # (Auto) 0.3 K/mm3 (0.0-0.4); Hematocrit 28.6 % (30.3-42.9); Hemoglobin 9.8 gm/dl (10.1-14.3); Lymphocytes # (Auto) 1.6 K/mm3 (1.2-5.4); Lymphocytes % (Auto) 26.4 % (13.4-35.0); Mean Corpuscular HGB Conc 34 % (30-34); Mean Corpuscular Volume 89 fl (79-97); Monocytes # (Auto) 0.9 K/mm3 (0.0-0.8); Monocytes % (Auto) 14.7 % (0.0-7.3); Platelet Count 367 K/mm3 (140-440); Red Blood Count 3.22 M/mm3 (3.65-5.03); Red Cell Distribution Width 17.9 % (13.2-15.2)
[2020-09-08 18:06] LABS: Alanine Aminotransferase 9 units/L (7-56); Albumin 3.9 g/dL (3.9-5); Blood Urea Nitrogen 15 mg/dL (7-17); Calcium 9.2 mg/dL (8.4-10.2); Hemolysis Index 20
[2020-09-08 18:24] LABS: BUN/Creatinine Ratio 30
--- NOTE | 2020-09-08 19:00 | Ultrasound Report ---
ULTRASOUND ABDOMEN, LIMITED (RIGHT UPPER QUADRANT) INDICATION: RUQ pain. COMPARISON: None available. FINDINGS: PANCREAS: No significant abnormality. LIVER: No significant abnormality. GALLBLADDER: Prior cholecystectomy. BILE DUCTS: No significant abnormality. Common bile duct measures 3.7 mm. FREE FLUID: None. ADDITIONAL FINDINGS: The visualized portion of the right kidney is unremarkable. IMPRESSION: Prior cholecystectomy. No significant abnormality is identified. Signer Name: Demar Rojas MD Signed: 09/08/2020 6:56 PM Workstation Name: [id number]
--- NOTE | 2020-09-08 20:48 | XRay Report ---
CHEST 1 VIEW INDICATION: R lower chest pain COMPARISON: 05/11/2020 FINDINGS: SUPPORT DEVICES: PICC line has tip in superior vena cava HEART / MEDIASTINUM: No significant abnormality. LUNGS / PLEURA: No significant pulmonary or pleural abnormality. No pneumothorax. ADDITIONAL FINDINGS: IMPRESSION: 1. No acute cardiopulmonary disease Signer Name: Corwin Fortune MD Signed: 09/08/2020 8:43 PM Workstation Name: [id number]
--- NOTE | 2020-09-09 12:27 | Emergency Department Report ---
ED General Adult HPI - General Chief complaint: Abdominal Pain Stated complaint: ABD PAIN Time Seen by Provider: 09/08/20 17:22 Source: patient, EMS Mode of arrival: Ambulatory Limitations: Physical Limitation - History of Present Illness Initial comments: 70-year-old female patient presents with complaints of right upper abdominal pain. She has history of hypertension, COPD, dementia, and is a poor historian. Patient recently had a surgery to her left knee. She denies any chest pain or shortness of breath or fever/chills/sweats. Patient rates her pain as an 8/10 in severity. - Related Data Home Medications Medication Instructions Recorded Confirmed Last Taken Apixaban [Eliquis] 5 mg PO BID 03/11/19 05/07/20 Unknown Previous Rx's Medication Instructions Recorded Last Taken Type guaiFENesin [Robitussin] 200 mg PO Q6H PRN tablet 03/16/19 Unknown Rx PARoxetine [Paxil] 40 mg PO QDAY #30 tablet 03/19/19 Unknown Rx Propranolol LA [Inderal LA] 60 mg PO QDAY #30 capsule 03/19/19 Unknown Rx Simvastatin 20 mg PO HS #30 tablet 03/19/19 Unknown Rx Docusate Sodium [Colace CAP] 100 mg PO BID PRN #60 capsule 06/20/19 Unknown Rx Lactulose 10 gm PO DAILY PRN #150 ml 06/20/19 Unknown Rx Albuterol Mdi (or & Nicu Only) 2 puff IH Q4HR PRN #1 inhalation 11/05/19 Unknown Rx [ProAir HFA Inhaler] Famotidine [Pepcid] 20 mg PO BID #30 tablet 12/06/19 Unknown Rx QUEtiapine [SEROquel] 400 mg PO HS #30 tablet 05/15/20 Unknown Rx predniSONE [Deltasone] 20 mg PO QDAY #5 tab 05/15/20 Unknown Rx ALBUTEROL NEB's [Proventil 0.083% 2.5 mg IH QID PRN #30 05/17/20 Unknown Rx NEBS] Omeprazole 20 mg PO QDAY #30 05/17/20 Unknown Rx donepeziL [Aricept] 5 mg PO QHS #30 05/17/20 Unknown Rx Meloxicam [Mobic] 7.5 mg PO QDAY #15 tablet 06/30/20 Unknown Rx Trolamine Salicylate/Aloe Vera 85 gm TP TID PRN #85 cream..g. 06/30/20 Unknown Rx [Aspercreme 10% Cream] Allergies Allergy/AdvReac Type Severity Reaction Status Date / Time Iodinated Contrast Media Allergy Itching Verified 01/09/19 17:24 [Iodinated Contrast Media - IV Dye] ivp dye Allergy Itching Uncoded 10/05/17 08:23 ED Review of Systems ROS: Stated complaint: ABD PAIN Other details as noted in HPI Comment: Unobtainable due to pts medical conditions ED Past Medical Hx - Past Medical History Previous Medical History?: Yes Hx Hypertension: Yes Hx Deep Vein Thrombosis: No Hx GERD: Yes Hx Liver Disease: Yes (HEP C, cirrohsis) Hx Arthritis: Yes Hx Psychiatric Treatment: Yes (depression) Hx COPD: Yes Hx Dementia: Yes Additional medical history: osteoporosis, sleep apnea/cpap @ night, Home O2-3L, emphysema, IVC filter, MRSA bacteremia - Surgical History Past Surgical History?: Yes Hx Pacemaker: No Hx Internal Defibrillator: No Hx Cholecystectomy: Yes Additional Surgical History: thyroid surg t&a, right leg - Social History Smoking Status: Current Every Day Smoker Substance Use Type: None - Medications Home Medications: Home Medications Medication Instructions Recorded Confirmed Last Taken Type Apixaban [Eliquis] 5 mg PO BID 03/11/19 05/07/20 Unknown History guaiFENesin [Robitussin] 200 mg PO Q6H PRN tablet 03/16/19 05/07/20 Unknown Rx PARoxetine [Paxil] 40 mg PO QDAY #30 tablet 03/19/19 05/07/20 Unknown Rx Propranolol LA [Inderal LA] 60 mg PO QDAY #30 capsule 03/19/19 05/07/20 Unknown Rx Simvastatin 20 mg PO HS #30 tablet 03/19/19 05/07/20 Unknown Rx Docusate Sodium [Colace CAP] 100 mg PO BID PRN #60 capsule 06/20/19 05/07/20 Unknown Rx Lactulose 10 gm PO DAILY PRN #150 ml 06/20/19 05/07/20 Unknown Rx Albuterol Mdi (or & Nicu Only) 2 puff IH Q4HR PRN #1 inhalation 11/05/19 08/2 12/02 Unknown Rx [ProAir HFA Inhaler] Famotidine [Pepcid] 20 mg PO BID #30 tablet 12/06/19 05/07/20 Unknown Rx QUEtiapine [SEROquel] 400 mg PO HS #30 tablet 05/15/20 Unknown Rx predniSONE [Deltasone] 20 mg PO QDAY #5 tab 05/15/20 Unknown Rx ALBUTEROL NEB's [Proventil 0.083% 2.5 mg IH QID PRN #30 05/17/20 Unknown Rx NEBS] Omeprazole 20 mg PO QDAY #30 05/17/20 Unknown Rx donepeziL [Aricept] 5 mg PO QHS #30 05/17/20 Unknown Rx Meloxicam [Mobic] 7.5 mg PO QDAY #15 tablet 06/30/20 Unknown Rx Trolamine Salicylate/Aloe Vera 85 gm TP TID PRN #85 cream..g. 06/30/20 Unknown Rx [Aspercreme 10% Cream] ED Physical Exam - General Limitations: Physical Limitation General appearance: alert, in no apparent distress - Head Head exam: Present: atraumatic, normocephalic - Eye Eye exam: Present: normal appearance. Absent: scleral icterus - ENT ENT exam: Present: normal exam - Neck Neck exam: Present: normal inspection - Respiratory Respiratory exam: Present: normal lung sounds bilaterally. Absent: respiratory distress - Cardiovascular Cardiovascular Exam: Present: regular rate, normal rhythm - GI/Abdominal GI/Abdominal exam: Present: soft, tenderness (RUQ). Absent: distended, guarding, rigid, normal bowel sounds - Extremities Exam Extremities exam: Present: joint swelling (Left knee with sutures in place; no warmth or erythema or cellulitic changes are noted) - Back Exam Back exam: Present: full ROM. Absent: CVA tenderness (R), CVA tenderness (L) - Neurological Exam Neurological exam: Present: alert - Psychiatric Psychiatric exam: Present: normal affect, normal mood - Skin Skin exam: Present: warm, dry, intact, normal color. Absent: rash, cyanosis, diaphoretic, erythema, petechiae, pallor, ecchymosis ED Course Vital Signs 09/08/20 09/09/20 09/09/20 17:24 07:33 13:46 Temperature 98.2 F 97.9 F Pulse Rate 114 H 108 H 114 H Respiratory 20 16 16 Rate Blood Pressure 157/92 Blood Pressure 162/88 140/68 [Right] O2 Sat by Pulse 98 98 97 Oximetry 09/09/20 09/09/20 09/09/20 13:50 18:06 18:19 Temperature Pulse Rate 114 H 98 H Respiratory 16 18 18 Rate Blood Pressure Blood Pressure 146/88 146/82 [Right] O2 Sat by Pulse 100 98 Oximetry 09/09/20 18:46 Temperature Pulse Rate 98 H Respiratory 18 Rate Blood Pressure Blood Pressure 156/98 [Right] O2 Sat by Pulse 97 Oximetry ED Medical Decision Making - Lab Data Result diagrams: 09/09/20 13:13 09/09/20 13:13 - Radiology Data Radiology results: report reviewed CTA CHEST WITH IV CONTRAST INDICATION / CLINICAL INFORMATION: MAIN. TECHNIQUE: Axial CT images were obtained through the chest after injection of 100 cc Omnipaque 350 milligrams percent IV contrast. 3 plane MIP and/or 3D reconstructions were produced. All CT scans at this loc ation are performed using CT dose reduction for ALARA by means of automated exposure control. COMPARISON: None available. FINDINGS: PULMONARY ARTERIES: No pulmonary emboli. THORACIC AORTA: Atherosclerotic plaque present thoracic aorta HEART: No significant abnormality. CORONARY ARTERIES: Moderate coronary calcifications present PLEURA: No pleural effusion. No pneumothorax. LYMPH NODES: No significant adenopathy. LUNGS: Prominent bronchovascular markings throughout both lungs with chronic pulmonary changes present ADDITIONAL FINDINGS: None. SKELETAL STRUCTURES: Degenerative changes thoracic spine IMPRESSION: 1. No CT evidence for pulmonary embolism. 2. Chronic pulmonary changes CT ABDOMEN AND PELVIS WITH CONTRAST INDICATION / CLINICAL INFORMATION: MAIN. TECHNIQUE: Axial CT images were obtained through the abdomen and pelvis after IV contrast. All CT scans at this location are performed using CT dose reduction for ALARA by means of automated exposure control. COMPARISON: Exam is compared to 06/20/2019 and 05/02/2020 FINDINGS: LOWER CHEST: Prominent bronchovascular markings with minimum scarring linear segment left upper lobe. Stable nodule right middle lobe LIVER: No change small hepatic cyst GALLBLADDER: Previous cholecystectomy BILE DUCTS: No significant abnormality. PANCREAS: No significant abnormality. SPLEEN: No significant abnormality. ADRENALS: No significant abnormality. RIGHT KIDNEY and URETER: No significant abnormality. LEFT KIDNEY and URETER: No significant abnormality. STOMACH and SMALL BOWEL: No significant abnormality. COLON: No significant abnormality. APPENDIX: No significant abnormality. PERITONEUM: No free fluid. No free air. No fluid collection. LYMPH NODES: No significant adenopathy. AORTA and ARTERIES: Atherosclerotic calcified plaque abdominal aorta IVC and VEINS: IVC filter in place. URINARY BLADDER: No significant abnormality. REPRODUCTIVE ORGANS: No significant abnormality. ADDITIONAL FINDINGS: None. SKELETAL SYSTEM: Total right hip arthroplasty is present IMPRESSION: 1. No significant interval change in no evidence of acute pathological process 2. Stable pulmonary nodule right middle lobe 3. Stable hepatic cyst. - Medical Decision Making 70-year-old female patient presents with complaints of right upper abdominal pain. She has history of hypertension, COPD, dementia, and is a poor historian. Patient recently had a surgery to her left knee. She denies any chest pain or shortness of breath or fever/chills/sweats. Patient rates her pain as an 8/10 in severity. Right upper quadrant ultrasound, CT abdomen and CTA chest are negative for any acute abnormalities. CBC is normal. IV potassium given for hypokalemia. IV Rocephin given for UTI. Prescription for Macrobid called into patient's pharmacy, [facility] at phone number [phone]. Called into patient's pharmacy, [facility] pharmacy at [phone]. 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 Patient's pain is controlled, she is well-appearing, she is stable for discharge home. Patient to follow-up with her primary care doctor in 3 days. Critical care attestation.: If time is entered above; I have spent that time in minutes in the direct care of this critically ill patient, excluding procedure time. ED Disposition Clinical Impression: Abdominal pain, right upper quadrant, UTI (urinary tract infection) Disposition: - TO HOME OR SELFCARE Is pt being admited?: No Condition: Stable Instructions: Abdominal Pain, Adult, Urinary Tract Infection, Adult, Easy-to-Re ad, Abdominal Pain (ED) Referrals: MITCHELL GUEVARA MD [Primary Care Provider] - 09/11/20
[2020-09-09] MEDS ORDERED: MORPHINE 4 MG/1 ML INJ IV ONE (13:26)
[2020-09-09] MEDS ORDERED: ONDANSETRON 4 MG/2 ML INJ IV ONE (13:26)
[2020-09-09 13:32] LABS: Basophils # (Auto) 0.1 K/mm3 (0.0-0.1); Basophils % (Auto) 0.9 % (0.0-1.8); Eosinophils # (Auto) 0.2 K/mm3 (0.0-0.4); Eosinophils % (Auto) 2.1 % (0.0-4.3); Hematocrit 26.4 % (30.3-42.9); Hemoglobin 8.9 gm/dl (10.1-14.3); Lymphocytes # (Auto) 1.3 K/mm3 (1.2-5.4); Lymphocytes % (Auto) 14.1 % (13.4-35.0); Mean Corpuscular HGB Conc 34 % (30-34); Mean Corpuscular Volume 88 fl (79-97); Monocytes # (Auto) 1.1 K/mm3 (0.0-0.8); Monocytes % (Auto) 11.2 % (0.0-7.3); Platelet Count 347 K/mm3 (140-440); Red Cell Distribution Width 17.8 % (13.2-15.2)
[2020-09-09 13:35] LABS: Bilirubin,Urine NEG (Negative); Blood,Urine NEG (Negative); Calcium Oxalate Crystals,Urine 3+; Color,Urine Yellow (Yellow); Mucus,Urine 1+ /HPF
[2020-09-09 14:11] LABS: Alanine Aminotransferase 8 units/L (7-56); Albumin 3.7 g/dL (3.9-5); Blood Urea Nitrogen 15 mg/dL (7-17); Calcium 8.9 mg/dL (8.4-10.2); Hemolysis Index 4
[2020-09-09 14:12] LABS: BUN/Creatinine Ratio 30
[2020-09-09] MEDS ORDERED: POTASSIUM CHLORIDE 10 MEQ 10 MEQ/100 ML BAG IV ONE (15:11)
[2020-09-09] MEDS ORDERED: cefTRIAXone/NS 1 GM/50 ML 1 GM/50 ML BAG IV ONE (15:13)
--- NOTE | 2020-09-09 15:26 | Cat Scan Report ---
CTA CHEST WITH IV CONTRAST INDICATION / CLINICAL INFORMATION: MAIN. TECHNIQUE: Axial CT images were obtained through the chest after injection of 100 cc Omnipaque 350 milligrams pe rcent IV contrast. 3 plane MIP and/or 3D reconstructions were produced. All CT scans at this location are performed using CT dose reduction for ALARA by means of automated exposure control. COMPARISON: None available. FINDINGS: PULMONARY ARTERIES: No pulmonary emboli. THORACIC AORTA: Atherosclerotic plaque present thoracic aorta HEART: No significant abnormality. CORONARY ARTERIES: Moderate coronary calcifications present PLEURA: No pleural effusion. No pneumothorax. LYMPH NODES: No significant adenopathy. LUNGS: Prominent bronchovascular markings throughout both lungs with chronic pulmonary changes presen t ADDITIONAL FINDINGS: None. SKELETAL STRUCTURES: Degenerative changes thoracic spine IMPRESSION: 1. No CT evidence for pulmonary embolism. 2. Chronic pulmonary changes Signer Name: Corwin Fortune MD Signed: 09/09/2020 3:21 PM Workstation Name: [id number]
[2020-09-09] MEDS ORDERED: SODIUM CHLORIDE 0.9% 1000 ML 1,000 ML IV ONE (15:32)
[2020-09-09] MEDS ORDERED: diphenhydrAMINE 50 MG/ML VIAL ONE (15:57)
--- NOTE | 2020-09-09 16:00 | Cat Scan Report ---
CT ABDOMEN AND PELVIS WITH CONTRAST INDICATION / CLINICAL INFORMATION: MAIN. TECHNIQUE: Axial CT images were obtained through the abdomen and pelvis after IV contrast. All CT scans at this location are performed using CT dose reduction for ALARA by means of automated exposure control. COMPARISON: Exam is compared to 06/20/2019 and 05/02/2020 FINDINGS: LOWER CHEST: Prominent bronchovascular markings with minimum scarring linear segment left upper lobe. Stable nodule right middle lobe LIVER: No change small hepatic cyst GALLBLADDER: Previous cholecystectomy BILE DUCTS: No significant abnormality. PANCREAS: No significant abnormality. SPLEEN: No significant abnormality. ADRENALS: No significant abnormality. RIGHT KIDNEY and URETER: No significant abnormality. LEFT KIDNEY and URETER: No significant abnormality. STOMACH and SMALL BOWEL: No significant abnormality. COLON: No significant abnormality. APPENDIX: No significant abnormality. PERITONEUM: No free fluid. No free air. No fluid collection. LYMPH NODES: No significant adenopathy. AORTA and ARTERIES: Atherosclerotic calcified plaque abdominal aorta IVC and VEINS: IVC filter in place. URINARY BLADDER: No significant abnormality. REPRODUCTIVE ORGANS: No significant abnormality. ADDITIONAL FINDINGS: None. SKELETAL SYSTEM: Total right hip arthroplasty is present IMPRESSION: 1. No significant interval change in no evidence of acute pathological process 2. Stable pulmonary nodule right middle lobe 3. Stable hepatic cyst. Signer Name: Corwin Fortune MD Signed: 09/09/2020 3:55 PM Workstation Name: [id number]
[2020-09-09 18:48] VITALS: BP 156/98
== END 2020-09-09 18:46 | disposition home or self-care (01) ==
LOC: ED 16:02
DX: N39.0 Urinary tract infection, site not specified (principal); R10.11 Right upper quadrant pain; I10 Essential (primary) hypertension; K21.9 Gastro-esophageal reflux disease without esophagitis; M19.91 Primary osteoarthritis, unspecified site; F32.9 Major depressive disorder, single episode, unspecified; J44.9 Chronic obstructive pulmonary disease, unspecified; F03.90 Unspecified dementia, unspecified severity, without behavioral disturbance, psychotic disturbance, mood disturbance, and anxiety; F17.200 Nicotine dependence, unspecified, uncomplicated; Z90.49 Acquired absence of other specified parts of digestive tract; Z98.890 Other specified postprocedural states; Z79.899 Other long term (current) drug therapy; Z88.8 Allergy status to other drugs, medicaments and biological substances
CPT/HCPCS: 36415; 71045; 71275; 74177; 76705; 80053; 81001; 83690; 84484; 85025; 85379; 87086; 96365; 96368; 96375; 99285; J0696; J2270; J2405; J3480; J7030; Q9967; J1200

== ENCOUNTER 2021-03-24 16:01 | Inpatient (IN) | payer MEDICARE ==
--- NOTE | 2021-03-24 17:20 | Event Note ---
ED Screening Note ED Screening Note: pt presents for abd pain that began a week ago worse in the last 2-3 days +n/v/d PMHx copd,cirrhosis allergies to IV dye states is a former drinker and previous IV drug and cocaine user This initial assessment/diagnostic orders/clinical plan/treatment(s) is/are subject to change based on patients health status, clinical progression and re- assessment by fellow clinical providers in the ED. Further treatment and workup at subsequent clinical providers discretion. Patient/guardian urged not to elope from the ED as their condition may be serious if not clinically assessed and managed. Initial orders include: code sepsis initiated
--- NOTE | 2021-03-24 18:03 | XRay Report ---
CHEST 1 VIEW 03/24/2021 4:56 PM INDICATION / CLINICAL INFORMATION: Suspected sepsis. COMPARISON: 09/08/20. FINDINGS: SUPPORT DEVICES: A left PICC has been removed. HEART / MEDIASTINUM: The heart size and pulmonary vasculature are normal. LUNGS / PLEURA: There is mild left basilar pleuroparenchymal opacity with obscuration of the hemidiap hragm, new since the prior exam. No pneumothorax. ADDITIONAL FINDINGS: No significant additional findings. IMPRESSION: Mild pleuroparenchymal opacity in the left lower hemithorax is nonspecific. The findings are likely related to a combination of pleural effusion and underlying pneumonia or atelectasis. Signer Name: Demar Rojas MD Signed: 03/24/2021 5:59 PM Workstation Name: [id number]
[2021-03-24 18:32] LABS: Alanine Aminotransferase 7 units/L (7-56); Albumin 4.4 g/dL (3.9-5); Blood Urea Nitrogen 10 mg/dL (7-17); Calcium 9.2 mg/dL (8.4-10.2); Hemolysis Index 5
[2021-03-24 18:39] LABS: BUN/Creatinine Ratio 25
[2021-03-24 19:02] LABS: Hematocrit 26.8 % (30.3-42.9); Hemoglobin 9.1 gm/dl (10.1-14.3); Mean Corpuscular HGB Conc 34 % (30-34); Mean Corpuscular Volume 94 fl (79-97); Red Blood Count 2.85 M/mm3 (3.65-5.03); Red Cell Distribution Width 17.1 % (13.2-15.2)
[2021-03-24] MEDS ORDERED: cefTRIAXone/NS 2 GM/100 ML 2 GM/100 ML BAG IV ONE (19:36)
[2021-03-24] MEDS ORDERED: AZITHROMYCIN/NS 500 MG/250 ML 500 MG/250 ML BAG IV ONE (19:36)
[2021-03-24 19:39] LABS: Total Cells Counted 100
[2021-03-24 19:44] LABS: Anisocytosis Few; Schistocytes Rare
[2021-03-24 19:55] LABS: Hematocrit 31.2 % (30.3-42.9); Hemoglobin 10.5 gm/dl (10.1-14.3); Mean Corpuscular HGB Conc 34 % (30-34); Mean Corpuscular Volume 95 fl (79-97); Platelet Count 239 K/mm3 (140-440); Red Blood Count 3.31 M/mm3 (3.65-5.03); Red Cell Distribution Width 16.6 % (13.2-15.2)
[2021-03-24 20:04] LABS: Platelet Count TNR K/mm3 (140-440)
[2021-03-24] MEDS ORDERED: LORazepam 2 MG/ML VIAL IV ONE (20:17)
[2021-03-24] MEDS ORDERED: ZIPRASIDONE MESYLATE 20 MG VIAL IM ONE ×2 (20:17)
[2021-03-24] MEDS ORDERED: dexAMETHasone 20 MG/5 ML VIAL IV ONE (20:18)
--- NOTE | 2021-03-24 20:24 | Emergency Department Report ---
ED Abdominal Pain HPI - General Chief Complaint: Nausea/Vomiting/Diarrhea Stated Complaint: SICK PUI?: Yes Time Seen by Provider: 03/24/21 17:18 Source: patient Mode of arrival: Wheelchair Limitations: No Limitations - History of Present Illness Initial Comments: Chief complaint: "I have been feeling bad for a while." HPI: This is a 70-year-old female with history of COPD, hypertension, psychosis, tobacco dependence, ileus, pulmonary embolism, sleep apnea, chronic respiratory failure, GERD, dementia, depression, pneumonia, duodenitis, hepatitis C, cirrhosis who presents with generalized malaise nausea abdominal pain for s everal days. She has chills. She said productive cough. Moderate bilateral central abdominal pain. Unknown if she received Covid vaccination. PCP Dr. Rasheed LOZA Complaint: abdominal pain -: Gradual, days(s) (Several days) Location: LUQ, RUQ, LLQ, RLQ Radiation: none Severity: moderate Severity scale (0 -10): 7 Quality: cramping Consistency: constant Improves With: nothing Worsens With: nothing Associated Symptoms: nausea, vomiting, other (Cough) - Related Data Home Medications Medication Instructions Recorded Confirmed Last Taken Apixaban [Eliquis] 5 mg PO BID 03/11/19 05/07/20 Unknown Previous Rx's Medication Instructions Recorded Last Taken Type guaiFENesin [Robitussin] 200 mg PO Q6H PRN tablet 03/16/19 Unknown Rx PARoxetine [Paxil] 40 mg PO QDAY #30 tablet 03/19/19 Unknown Rx Propranolol LA [Inderal LA] 60 mg PO QDAY #30 capsule 03/19/19 Unknown Rx Simvastatin 20 mg PO HS #30 tablet 03/19/19 Unknown Rx Docusate Sodium [Colace CAP] 100 mg PO BID PRN #60 capsule 06/20/19 Unknown Rx Lactulose 10 gm PO DAILY PRN #150 ml 06/20/19 Unknown Rx Albuterol Mdi (or & Nicu Only) 2 puff IH Q4HR PRN #1 inhalation 11/05/19 Unknown Rx [ProAir HFA Inhaler] Famotidine [Pepcid] 20 mg PO BID #30 tablet 12/06/19 Unknown Rx QUEtiapine [SEROquel] 400 mg PO HS #30 tablet 05/15/20 Unknown Rx predniSONE [Deltasone] 20 mg PO QDAY #5 tab 05/15/20 Unknown Rx ALBUTEROL NEB's [Proventil 0.083% 2.5 mg IH QID PRN #30 05/17/20 Unknown Rx NEBS] Omeprazole 20 mg PO QDAY #30 05/17/20 Unknown Rx donepeziL [Aricept] 5 mg PO QHS #30 05/17/20 Unknown Rx Meloxicam [Mobic] 7.5 mg PO QDAY #15 tablet 06/30/20 Unknown Rx Trolamine Salicylate/Aloe Vera 85 gm TP TID PRN #85 cream..g. 06/30/20 Unknown Rx [Aspercreme 10% Cream] Allergies Allergy/AdvReac Type Severity Reaction Status Date / Time Iodinated Contrast Media Allergy Itching Verified 01/09/19 17:24 [Iodinated Contrast Media - IV Dye] ivp dye Allergy Itching Uncoded 10/05/17 08:23 ED Review of Systems ROS: Stated complaint: SICK Other details as noted in HPI Comment: All other systems reviewed and negative Constitutional: chills, malaise ENT: denies: throat pain Respiratory: cough. denies: shortness of breath Cardiovascular: denies: chest pain Gastrointestinal: abdominal pain, nausea, vomiting. denies: diarrhea Neurological: denies: headache ED Past Medical Hx - Past Medical History Previous Medical History?: Yes Hx Hypertension: Yes Hx Deep Vein Thrombosis: No Hx GERD: Yes Hx Liver Disease: Yes (HEP C, cirrohsis) Hx Arthritis: Yes Hx Psychiatric Treatment: Yes (depression) Hx COPD: Yes Hx Dementia: Yes Additional medical history: osteoporosis, sleep apnea/cpap @ night, Home O2-3L, emphysema, IVC filter, MRSA bacteremia - Surgical History Past Surgical History?: Yes Hx Pacemaker: No Hx Internal Defibrillator: No Hx Cholecystectomy: Yes Additional Surgical History: thyroid surg t&a, right leg - Social History Smoking Status: Current Every Day Smoker Substance Use Type: None - Medications Home Medications: Home Medications Medication Instructions Recorded Confirmed Last Taken Type Apixaban [Eliquis] 5 mg PO BID 03/11/19 05/07/20 Unknown History guaiFENesin [Robitussin] 200 mg PO Q6H PRN tablet 03/16/19 05/07/20 Unknown Rx PARoxetine [Paxil] 40 mg PO QDAY #30 tablet 03/19/19 05/07/20 Unknown Rx Propranolol LA [Inderal LA] 60 mg PO QDAY #30 capsule 03/19/19 05/07/20 Unknown Rx Simvastatin 20 mg PO HS #30 tablet 03/19/19 05/07/20 Unknown Rx Docusate Sodium [Colace CAP] 100 mg PO BID PRN #60 capsule 06/20/19 05/07/20 Unknown Rx Lactulose 10 gm PO DAILY PRN #150 ml 06/20/19 05/07/20 Unknown Rx Albuterol Mdi (or & Nicu Only) 2 puff IH Q4HR PRN #1 inhalation 11/05/19 05/07/20 Unknown Rx [ProAir HFA Inhaler] Famotidine [Pepcid] 20 mg PO BID #30 tablet 12/06/19 05/07/20 Unknown Rx QUEtiapine [SEROquel] 400 mg PO HS #30 tablet 05/15/20 Unknown Rx predniSONE [Deltasone] 20 mg PO QDAY #5 tab 05/15/20 Unknown Rx ALBUTEROL NEB's [Proventil 0.083% 2.5 mg IH QID PRN #30 05/17/20 Unknown Rx NEBS] Omeprazole 20 mg PO QDAY #30 05/17/20 Unknown Rx donepeziL [Aricept] 5 mg PO QHS #30 05/17/20 Unknown Rx Meloxicam [Mobic] 7.5 mg PO QDAY #15 tablet 06/30/20 Unknown Rx Trolamine Salicylate/Aloe Vera 85 gm TP TID PRN #85 cream..g. 06/30/20 Unknown Rx [Aspercreme 10% Cream] ED Physical Exam - General Limitations: No Limitations General appearance: alert, in no apparent distress, other (Initially pleasant speaking full word sentences appears mildly ill then progressed to agitation) - Head Head exam: Present: atraumatic, normocephalic - Eye Eye exam: Present: normal appearance - ENT ENT exam: Present: mucous membranes moist - Neck Neck exam: Present: normal inspection, full ROM - Respiratory Respiratory exam: Present: normal lung sounds bilaterally, rhonchi, accessory muscle use, decreased breath sounds. Absent: wheezes, rales, prolonged expiratory - Cardiovascular Cardiovascular Exam: Present: normal rhythm, tachycardia, normal heart sounds. Absent: systolic murmur, diastolic murmur, rubs, gallop - GI/Abdominal GI/Abdominal exam: Present: soft, normal bowel sounds. Absent: distended, tenderness, guarding, rebound - Extremities Exam Extremities exam: Present: normal inspection - Neurological Exam Neurological exam: Present: alert, oriented X3 - Psychiatric Psychiatric exam: Present: normal affect, agitated, anxious - Skin Skin exam: Present: warm, dry, intact, normal color. Absent: rash ED Course Vital Signs 03/24/21 03/24/21 03/24/21 16:30 16:40 19:45 Temperature 100.5 F H 99.8 F H Pulse Rate 117 H 116 H Respiratory 20 18 Rate Blood Pressure 136/66 Blood Pressure 141/72 [Left] O2 Sat by Pulse 91 94 93 Oximetry ED Medical Decision Making - Lab Data Result diagrams: 03/24/21 19:46 03/24/21 17:35 Laboratory Results - last 24 hr 03/24/21 03/24/21 03/24/21 17:35 17:35 17:35 WBC 10.7 RBC 2.85 L Hgb 9.1 L Hct 26.8 L MCV 94 MCH 32 MCHC 34 RDW 17.1 H Plt Count TNR Lymph % (Auto) Stone And Plate Preparer Apprentice [place] % (Auto) Stone And Plate Preparer Apprentice Eos % (Auto) Stone And Plate Preparer Apprentice Baso % (Auto) Stone And Plate Preparer Apprentice Lymph # (Auto) Stone And Plate Preparer Apprentice [place] # (Auto) Stone And Plate Preparer Apprentice Eos # (Auto) Stone And Plate Preparer Apprentice Baso # (Auto) Stone And Plate Preparer Apprentice Add Manual Diff Complete Total Counted 100 Seg Neutrophils % Stone And Plate Preparer Apprentice Seg Neuts % (Manual) 85.0 H Lymphocytes % (Manual) 7.0 L Monocytes % (Manual) 5.0 Eosinophils % (Manual) 2.0 Basophils % (Manual) 1.0 Nucleated RBC % Not Reportable Seg Neutrophils # Stone And Plate Preparer Apprentice Seg Neutrophils # Man 9.1 H Band Neutrophils # 0.0 Lymphocytes # (Manual) 0.7 L Abs React Lymphs (Man) 0.0 Monocytes # (Manual) 0.5 Eosinophils # (Manual) 0.2 Basophils # (Manual) 0.1 Metamyelocytes # 0.0 Myelocytes # 0.0 Promyelocytes # 0.0 Blast Cells # 0.0 WBC Morphology Not Reportable Hypersegmented Neuts Not Reportable Hyposegmented Neuts Not Reportable Hypogranular Neuts Not Reportable Smudge Cells Not Reportable Toxic Granulation Not Reportable Toxic Vacuolation Not Reportable Dohle Bodies Not Reportable Pelger-Huet Anomaly Not Reportable Dianne Rods Not Reportable Platelet Estimate Not Reportable Clumped Platelets Not Reportable Plt Clumps, EDTA Not Reportable Large Platelets Not Reportable Giant Platelets Not Reportable Platelet Satelliting Not Reportable Plt Morphology Comment Not Reportable RBC Morphology Not Reportable Dimorphic RBCs Not Reportable Polychromasia Not Reportable Hypochromasia Not Reportable Poikilocytosis Not Reportable Anisocytosis Few Microcytosis Few Macrocytosis Not Reportable Spherocytes Not Reportable Pappenheimer Bodies Not Reportable Sickle Cells Not Reportable Target Cells Not Reportable Tear Drop Cells Not Reportable Ovalocytes Not Reportable Helmet Cells Not Reportable Villa-[place] Bodies Not Reportable Benedict Rings Not Reportable Raj Cells Not Reportable Bite Cells Not Reportable Crenated Cell Not Reportable Elliptocytes Not Reportable Acanthocytes (Spur) Not Reportable Rouleaux Not Reportable Hemoglobin C Crystals Not Reportable Schistocytes Rare Malaria parasites Not Reportable Rah Bodies Not Reportable Hem Pathologist Commnt No Sodium 135 L Potassium 3.5 L Chloride 99.4 Carbon Dioxide 18 L Anion Gap 21 BUN 10 Creatinine 0.4 L Estimated GFR > 60 BUN/Creatinine Ratio 25 Glucose 106 H Lactic Acid 1.40 Calcium 9.2 Total Bilirubin 0.80 AST 12 ALT 7 Alkaline Phosphatase 113 Total Protein 7.1 Albumin 4.4 Albumin/Globulin Ratio 1.6 Lipase 03/24/21 03/24/21 03/24/21 17:35 19:46 19:46 WBC 11.6 H RBC 3.31 L Hgb 10.5 Hct 31.2 MCV 95 MCH 32 MCHC 34 RDW 16.6 H Plt Count 239 Lymph % (Auto) Lenoir % (Auto) Eos % (Auto) Baso % (Auto) Lymph # (Auto) [place] # (Auto) Eos # (Auto) Baso # (Auto) Add Manual Diff Total Counted Seg Neutrophils % Seg Neuts % (Manual) Lymphocytes % (Manual) Monocytes % (Manual) Eosinophils % (Manual) Basophils % (Manual) Nucleated RBC % Seg Neutrophils # Seg Neutrophils # Man Band Neutrophils # Lymphocytes # (Manual) Abs React Lymphs (Man) Monocytes # (Manual) Eosinophils # (Manual) Basophils # (Manual) Metamyelocytes # Myelocytes # Promyelocytes # Blast Cells # WBC Morphology Hypersegmented Neuts Hyposegmented Neuts Hypogranular Neuts Smudge Cells Toxic Granulation Toxic Vacuolation Dohle Bodies Pelger-Huet Anomaly Dianne Rods Platelet Estimate Clumped Platelets Plt Clumps, EDTA Large Platelets Giant Platelets Platelet Satelliting Plt Morphology Comment RBC Morphology Dimorphic RBCs Polychromasia Hypochromasia Poikilocytosis Anisocytosis Microcytosis Macrocytosis Spherocytes Pappenheimer Bodies Sickle Cells Target Cells Tear Drop Cells Ovalocytes Helmet Cells Villa-Gray[place] Bodies Benedict Rings Raj Cells Bite Cells Crenated Cell Elliptocytes Acanthocytes (Spur) Rouleaux Hemoglobin C Crystals Schistocytes Malaria parasites Rah Bodies Hem Pathologist Commnt Sodium Potassium Chloride Carbon Dioxide Anion Gap BUN Creatinine Estimated GFR BUN/Creatinine Ratio Glucose Lactic Acid 0.90 Calcium Total Bilirubin AST ALT Alkaline Phosphatase Total Protein Albumin Albumin/Globulin Ratio Lipase 3 L - Radiology Data Radiology results: report reviewed [facility] [address] [place] [address] XRay Report Signed Patient: RADHA NETTLES MR#: [id number] : 1950 Acct:[id number] Age/Sex: 70 / F ADM Date: 03/24/21 Loc: ED Attending Dr: Ordering Physician: CYNTHIA VANESSA Date of Service: 03/24/21 Procedure(s): XR chest 1V ap Accession Number(s): [id number] cc: CYNTHIA VANESSA Fluoro Time In Minutes: CHEST 1 VIEW 03/24/2021 4:56 PM INDICATION / CLINICAL INFORMATION: Suspected sepsis. COMPARISON: 09/08/20. FINDINGS: SUPPORT DEVICES: A left PICC has been removed. HEART / MEDIASTINUM: The heart size and pulmonary vasculature are normal. LUNGS / PLEURA: There is mild left basilar pleuroparenchymal opacity with obscuration of the hemidiaphragm, new since the prior exam. No pneumothorax. ADDITIONAL FINDINGS: No significant additional findings. IMPRESSION: Mild pleuroparenchymal opacity in the left lower hemithorax is nonspecific. The findings are likely related to a combination of pleural effusion and underlying pneumonia or atelectasis. Signer Name: Demar Rojas MD Signed: 03/24/2021 5:59 PM Workstation Name: [id number] Transcribed By: RT Dictated By: Demar Rojas MD Electronically Authenticated By: Demar Rojas MD Signed Date/Time: 03/24/211758 DD/ 56 TD/TT: [facility] [address] [place] [address] Cat Scan Report Signed Patient: RADHA NETTLES MR#: [id number] : 1950 Acct:[id number] Age/Sex: 70 / F ADM Date: 03/24/21 Loc: ED Attending Dr: Ordering Physician: Cinda Carrasco MD Date of Service: 03/24/21 Procedure(s): CT abdomen pelvis wo con Accession Number(s): [id number] cc: Cinda Carrasco MD CT chest, abdomen, and pelvis without contrast INDICATION : fever abdominal pain. Hypoxia and lung infiltrates TECHNIQUE: Noncontrast technique was performed.. All CT scans at this location are performed using CT dose reduction for ALARA by means of automated exposure control. COMPARISON: CTA chest chest with CT abdomen and pelvis all from 09/09/2020 FINDINGS: Chest: Mild-moderate emphysematous changes are present in the lungs with small areas of mild atelectasis versus scarring in the lungs but there is also dense consolidation in the medial left lung base with air bronchograms present. The left lower lobe bronchus extending to this region is not well seen and likely filled with mucus or debris. No pathologic left hilar adenopathy identified. There are several enlarged mediastinal lymph nodes which may be reactive in this setting. Right lung is otherwise clear. Normal heart size with advanced atherosclerotic disease in the coronary arteries. Degenerative changes in the spine with nothing acute. No pathologic axillary adenopathy. Abdomen/pelvis: Gallbladder is surgically absent. There are simple hepatic cysts. The spleen, pancreas, kidneys, and proximal GI tract appear unremarkable. Mild bilateral adrenal thickening is present. There is moderate atherosclerotic disease throughout the abdominal aorta and branch vessels. Infrarenal IVC filter is in place. Urinary bladder and uterus appear unremarkable. No pelvic free fluid or acute colonic abnormality identified. There is a small hernia in the right lateral ventral abdominal wall which contains a portion of the appendix. No inflammatory change. IMPRESSION: 1. Mild to moderate emphysema with dense medial left basilar consolidation/atelectasis and air bronchograms suggesting pneumonia. 2. No acute abnormality in the abdomen. Incidental findings as above. Signer Name: Ramesh Acuña MD Signed: 03/24/2021 8:33 PM Workstation Name: [id number] Transcribed By: RICK Dictated By: Ramesh Acuña MD Electronically Authenticated By: Ramesh Acuña MD Signed Date/Time: 03/24/212032 DD/ 27 TD/TT: - Medical Decision Making 1. Abdominal pain: No evidence of acute inflammatory or obstructive process in the abdomen or pelvis 2. Fever, community acquired pneumonia fever: Evidence of pneumonia on chest radiograph and CT bacterial pneumonia with exudative effusion likely however considering pandemic must rule out coronavirus infection. Covid precautions with contact and respiratory isolation in place. IV Decadron initiated in emergency department. IV antibiotics with ceftriaxone and Zithromax and also initiated emergency department. Admitted to the hospital service in stable condition. Critical care attestation.: If time is entered above; I have spent that time in minutes in the direct care of this critically ill patient, excluding procedure time. ED Disposition Clinical Impression: Community acquired pneumonia, Suspected COVID-19 virus infection, Acute and chronic respiratory failure, Abdominal pain Disposition: OP ADMIT IP TO THIS HOSP Is pt being admited?: Yes Does the pt Need Aspirin: No Condition: Stable Instructions: Bacterial Pneumonia (ED) Referrals: MITCHELL GUEVARA MD [Primary Care Provider] - 3-5 Days
--- NOTE | 2021-03-24 20:37 | Cat Scan Report ---
CT chest, abdomen, and pelvis without contrast INDICATION : fever abdominal pain. Hypoxia and lung infiltrates TECHNIQUE: Noncontrast technique was performed.. All CT scans at this location are performed using CT dose reduction for ALARA by means of automated exposure control. COMPARISON: CTA chest chest with CT abdomen and pelvis all from 09/09/2020 FINDINGS: Chest: Mild-moderate emphysematous changes are present in the lungs with small areas of mild atelect asis versus scarring in the lungs but there is also dense consolidation in the medial left lung base with air bronchograms present. The left lower lobe bronchus extending to this region is not well seen and likely filled with mucus or debris. No pathologic left hilar adenopathy identified. There are se veral enlarged mediastinal lymph nodes which may be reactive in this setting. Right lung is otherwise clear. Normal heart size with advanced atherosclerotic disease in the coronary arteries. Degenerative change s in the spine with nothing acute. No pathologic axillary adenopathy. Abdomen/pelvis: Gallbladder is surgically absent. There are simple hepatic cysts. The spleen, pancre as, kidneys, and proximal GI tract appear unremarkable. Mild bilateral adrenal thickening is present. There is moderate atherosclerotic disease throughout the abdominal aorta and branch vessels. Infrare nal IVC filter is in place. Urinary bladder and uterus appear unremarkable. No pelvic free fluid or acute colonic abnormality brock ntified. There is a small hernia in the right lateral ventral abdominal wall which contains a portion of the appendix. No inflammatory change. IMPRESSION: 1. Mild to moderate emphysema with dense medial left basilar consolidation/atelectasis and air bronch ograms suggesting pneumonia. 2. No acute abnormality in the abdomen. Incidental findings as above. Signer Name: Ramesh Acuña MD Signed: 03/24/2021 8:33 PM Workstation Name: [id number]
[2021-03-24] MEDS ORDERED: MAGNESIUM HYDROXIDE (MOM) ORAL LIQD UDC PO PRN (21:49)
[2021-03-24] MEDS ORDERED: ONDANSETRON 4 MG/2 ML INJ IV PRN (21:49)
[2021-03-24] MEDS ORDERED: MORPHINE 4 MG/1 ML INJ IV PRN (21:49)
--- NOTE | 2021-03-24 22:00 | History and Physical Report ---
History of Present Illness Date of examination: 03/24/21 Date of admission: 03/24/2021 Chief complaint: Cough Abdominal Pain History of present illness: 70-year-old female with known history of COPD, hypertension, pulmonary embolism, sleep apnea, depression, dementia, hepatitis and liver cirrhosis presents to the emergency room today with generalized malaise, nausea and abdominal pain which has been ongoing for the past few days. She denies any fever but that she has been having some chills. She also complains of some abdominal discomfort especially in the upper abdomen. Patient has been having some cough which has been productive for some slightly yellowish sputum. Patient denies any sick contacts and no recent travel. Denies any contact with anyone with COVID-19. Patient is still unsure whether she had the COVID-19 vaccine. Patient follows up with . Upon arrival in the emergency room, patient was slightly hypoxic and was placed on oxygen by nasal cannula. Work-up in the emergency room today, labs reveals leukocytosis of 11.6 chemistry was significant for mild hypokalemia of 3.5, CT of the abdomen and pelvis reveals mild to moderate emphysema with dense medial left basilar consolidation/atelectasis and air bronchograms suggesting pneumonia. No acute findings in the abdomen. Patient has been admitted with pneumonia. We will also rule out for COVID-19. Past History Past Medical History: arthritis, COPD, GERD, hypertension, other (Depression, osteoporosis, sleep apnea/cpap @ night, Home O2-3L, emphysema, IVC filter, MRSA bacteremia) Past Surgical History: cholecystectomy, Other ( thyroid surg t&a, right leg) Social history: smoking (Current daily smoker) Family history: no significant family history Medications and Allergies Allergies Allergy/AdvReac Type Severity Reaction Status Date / Time Iodinated Contrast Media Allergy Itching Verified 01/09/19 17:24 [Iodinated Contrast Media - IV Dye] ivp dye Allergy Itching Uncoded 10/05/17 08:23 Home Medications Medication Instructions Recorded Confirmed Last Taken Type Apixaban [Eliquis] 5 mg PO BID 03/11/19 05/07/20 Unknown History guaiFENesin [Robitussin] 200 mg PO Q6H PRN tablet 03/16/19 05/07/20 Unknown Rx PARoxetine [Paxil] 40 mg PO QDAY #30 tablet 03/19/19 05/07/20 Unknown Rx Propranolol LA [Inderal LA] 60 mg PO QDAY #30 capsule 03/19/19 05/07/20 Unknown Rx Simvastatin 20 mg PO HS #30 tablet 03/19/19 05/07/20 Unknown Rx Docusate Sodium [Colace CAP] 100 mg PO BID PRN #60 capsule 06/20/19 05/07/20 Unknown Rx Lactulose 10 gm PO DAILY PRN #150 ml 06/20/19 05/07/20 Unknown Rx Albuterol Mdi (or & Nicu Only) 2 puff IH Q4HR PRN #1 inhalation 11/05/19 05/07/20 Unknown Rx [ProAir HFA Inhaler] Famotidine [Pepcid] 20 mg PO BID #30 tablet 12/06/19 05/07/20 Unknown Rx QUEtiapine [SEROquel] 400 mg PO HS #30 tablet 05/15/20 Unknown Rx predniSONE [Deltasone] 20 mg PO QDAY #5 tab 05/15/20 Unknown Rx ALBUTEROL NEB's [Proventil 0.083% 2.5 mg IH QID PRN #30 05/17/20 Unknown Rx NEBS] Omeprazole 20 mg PO QDAY #30 05/17/20 Unknown Rx donepeziL [Aricept] 5 mg PO QHS #30 05/17/20 Unknown Rx Meloxicam [Mobic] 7.5 mg PO QDAY #15 tablet 06/30/20 Unknown Rx Trolamine Salicylate/Aloe Vera 85 gm TP TID PRN #85 cream..g. 06/30/20 Unknown Rx [Aspercreme 10% Cream] Active Meds: Active Medications Acetaminophen (Acetaminophen 325 Mg Tab) 650 mg PO Q4H PRN PRN Reason: Pain MILD(1-3)/Fever >100.5/VOGEL Sodium Chloride (Nacl 0.9% 1000 Ml) 1,000 mls @ 75 mls/hr IV DIRECT ANGE Magnesium Hydroxide (Magnesium Hydroxide (Mom) Oral Liqd Udc) 30 ml PO Q4H PRN PRN Reason: Constipation Morphine Sulfate (Morphine 2 Mg/1 Ml Inj) 2 mg IV Q4H PRN PRN Reason: Pain, Moderate (4-6) Morphine Sulfate (Morphine 4 Mg/1 Ml Inj) 4 mg IV Q4H PRN PRN Reason: Pain , Severe (7-10) Ondansetron HCl (Ondansetron 4 Mg/2 Ml Inj) 4 mg IV Q8H PRN PRN Reason: Nausea And Vomiting Sodium Chloride (Sodium Chloride 0.9% 10 Ml Flush Syringe) 10 ml IV BID ANGE Sodium Chloride (Sodium Chloride 0.9% 10 Ml Flush Syringe) 10 ml IV PRN PRN PRN Reason: LINE FLUSH Review of Systems Constitutional: fever, chills Ears, nose, mouth and throat: no nasal congestion, no sore throat Cardiovascular: no chest pain, no palpitations Respiratory: cough, no shortness of breath Gastrointestinal: no abdominal pain, no nausea, no vomiting, no diarrhea Genitourinary Female: no flank pain, no dysuria, no hematuria Musculoskeletal: no neck pain, no low back pain Integumentary: no rash, no pruritis Neurological: no headaches, no confusion Psychiatric: no anxiety, no depression Endocrine: no polyphagia, no polydipsia, no polyuria, no nocturia Exam - Constitutional Vitals: Temp Pulse Resp BP Pulse Ox 99.8 F H 116 H 18 141/72 93 03/24/21 19:45 03/24/21 19:45 03/24/21 19:45 03/24/21 19:45 03/24/21 19:45 General appearance: Present: no acute distress, well-nourished - EENT Eyes: Present: PERRL, EOM intact. Absent: scleral icterus ENT: hearing intact, clear oral mucosa, dentition normal - Neck Neck: Present: supple, normal ROM - Respiratory Respiratory effort: normal Respiratory: bilateral: diminished - Cardiovascular Rhythm: regular Heart Sounds: Present: S1 & S2. Absent: systolic murmur, diastolic murmur, rub, click - Extremities Extremities: no ischemia, pulses intact, pulses symmetrical, No edema, normal temperature, Full ROM Peripheral Pulses: within normal limits - Abdominal General gastrointestinal: Present: soft, non-tender, non-distended, normal bowel sounds. Absent: mass - Integumentary Integumentary: Present: clear, warm, dry. Absent: rash - Musculoskeletal Musculoskeletal: strength equal bilaterally - Psychiatric Psychiatric: appropriate mood/affect, intact judgment & insight, memory intact - Neurologic Neurologic: CNII-XII intact, no focal deficits, moves all extremities Results - Labs CBC & Chem 7: 03/24/21 19:46 03/24/21 17:35 Labs: Abnormal lab results 03/24/21 03/24/21 03/24/21 Range/Units 17:35 17:35 17:35 WBC (4.5-11.0) K/mm3 RBC 2.85 L (3.65-5.03) M/mm3 Hgb 9.1 L (10.1-14.3) gm/dl Hct 26.8 L (30.3-42.9) % RDW 17.1 H (13.2-15.2) % Seg Neuts % (Manual) 85.0 H (40.0-70.0) % Lymphocytes % (Manual) 7.0 L (13.4-35.0) % Seg Neutrophils # Man 9.1 H (1.8-7.7) K/mm3 Lymphocytes # (Manual) 0.7 L (1.2-5.4) K/mm3 Sodium 135 L (137-145) mmol/L Potassium 3.5 L (3.6-5.0) mmol/L Carbon Dioxide 18 L (22-30) mmol/L Creatinine 0.4 L (0.6-1.2) mg/dL Glucose 106 H (65-100) mg/dL Lipase 3 L (13-60) units/L 03/24/21 Range/Units 19:46 WBC 11.6 H (4.5-11.0) K/mm3 RBC 3.31 L (3.65-5.03) M/mm3 Hgb (10.1-14.3) gm/dl Hct (30.3-42.9) % RDW 16.6 H (13.2-15.2) % Seg Neuts % (Manual) (40.0-70.0) % Lymphocytes % (Manual) (13.4-35.0) % Seg Neutrophils # Man (1.8-7.7) K/mm3 Lymphocytes # (Manual) (1.2-5.4) K/mm3 Sodium (137-145) mmol/L Potassium (3.6-5.0) mmol/L Carbon Dioxide (22-30) mmol/L Creatinine (0.6-1.2) mg/dL Glucose (65-100) mg/dL Lipase (13-60) units/L Assessment and Plan - Patient Problems (1) Community acquired pneumonia Current Visit: Yes Status: Acute Plan to address problem: Patient placed on empiric IV antibiotics. We will await culture results. (2) Acute and chronic respiratory failure Current Visit: Yes Status: Acute Qualifiers: Plan to address problem: Patient placed on oxygen by nasal cannula. We will keep O2 saturation greater or equal to 94%. (3) Suspected COVID-19 virus infection Current Visit: Yes Status: Acute Plan to address problem: We await COVID-19 testing. Consult placed to infectious disease for evaluation and recommendation. (4) Abdominal pain Current Visit: Yes Status: Acute Plan to address problem: Etiology unclear. We will place patient on analgesic medications as needed. CT of the abdomen and pelvis reveals no acute abnormality. (5) DVT prophylaxis Current Visit: No Status: Acute Plan to address problem: Patient currently on anticoagulation with Eliquis. (6) Full code status Current Visit: Yes Status: Acute Plan to address problem: Patient is full code.
[2021-03-24] MEDS: SODIUM CHLORIDE 0.9% 1000 ML 1,000 ML IV SCH (22:06)
[2021-03-25] MEDS ORDERED: DOCUSATE SODIUM 100 MG CAP PO PRN (05:02)
[2021-03-25] MEDS ORDERED: HEPARIN 5,000 UNIT/1 ML VIAL SUB-Q SCH (06:00)
[2021-03-25 08:33] LABS: Basophils % (Auto) 0.3 % (0.0-1.8); Eosinophils % (Auto) 0.1 % (0.0-4.3); Hematocrit 27.7 % (30.3-42.9); Hemoglobin 9.6 gm/dl (10.1-14.3); Lymphocytes # (Auto) 0.7 K/mm3 (1.2-5.4); Lymphocytes % (Auto) 9.4 % (13.4-35.0); Mean Corpuscular HGB Conc 35 % (30-34); Mean Corpuscular Volume 94 fl (79-97); Monocytes # (Auto) 0.5 K/mm3 (0.0-0.8); Monocytes % (Auto) 6.6 % (0.0-7.3); Platelet Count 229 K/mm3 (140-440); Red Blood Count 2.95 M/mm3 (3.65-5.03); Red Cell Distribution Width 17.1 % (13.2-15.2)
[2021-03-25 08:37] LABS: INR 1.06 (0.87-1.13)
[2021-03-25 09:01] LABS: Blood Urea Nitrogen 16 mg/dL (7-17); Calcium 8.6 mg/dL (8.4-10.2); Hemolysis Index 10
[2021-03-25 09:02] LABS: BUN/Creatinine Ratio 40
[2021-03-25] MEDS: cefTRIAXone/NS 2 GM/100 ML 2 GM/100 ML BAG IV SCH (09:24)
[2021-03-25] MEDS: MELOXICAM 7.5 MG TAB PO SCH (09:24)
[2021-03-25] MEDS: PROPRANOLOL LA 60 MG CAP PO SCH (09:25)
[2021-03-25] MEDS: FAMOTIDINE 20 MG TAB PO SCH ×2 (09:25→21:20)
[2021-03-25] MEDS: PARoxetine 20 MG TAB PO SCH (09:26)
[2021-03-25] MEDS: APIXABAN 5 MG TAB PO SCH ×2 (09:26→21:21)
[2021-03-25] MEDS ORDERED: AZITHROMYCIN/NS 500 MG/250 ML 500 MG/250 ML BAG IV SCH (10:00)
[2021-03-25] MEDS: MORPHINE 2 MG/1 ML INJ IV PRN ×3 (11:12→18:21)
[2021-03-25 11:51] LABS: C-Reactive Protein 9.6 mg/dL (0.00-1.30)
--- NOTE | 2021-03-25 12:52 | Consultation ---
History of Present Illness - Reason for Consult Consult date: 03/25/21 COVID PUI Requesting physician: MATA HDEZ - History of Present Illness The patient is a 70-year-old female with COPD, hypertension, PE, sleep apnea, dementia was admitted to the hospital with cough and shortness of breath going on for the past few days. She was also having some chills. Cough is associated with expectoration of yellowish sputum. Upon evaluation in the ER, noted to have a low-grade fever, labs revealed borderline leukocytosis, D-dimer 905, procalcitonin 0.05, CRP 9.6, ferritin 942. COVID-19 PCR is pending at this time. Infectious diseases was consulted for additional evaluation. Patient has been hypoxic requiring Venturi mask. CT showed emphysema along with left basilar consolidation and air bronchograms. Review of Systems: reviewed in the chart, unable to obtain, minimize risk of transmission Past History Past Medical History: arthritis, COPD, GERD, hypertension, other (Depression, osteoporosis, sleep apnea/cpap @ night, Home O2-3L, emphysema, IVC filter, MRSA bacteremia) Past Surgical History: cholecystectomy, Other ( thyroid surg t&a, right leg) Social history: smoking (Current daily smoker) Family history: no significant family history Medications and Allergies Allergies Allergy/AdvReac Type Severity Reaction Status Date / Time Iodinated Contrast Media Allergy Itching Verified 01/09/19 17:24 [Iodinated Contrast Media - IV Dye] ivp dye Allergy Itching Uncoded 10/05/17 08:23 Home Medications Medication Instructions Recorded Confirmed Last Taken Type Apixaban [Eliquis] 5 mg PO BID 03/11/19 05/07/20 Unknown History guaiFENesin [Robitussin] 200 mg PO Q6H PRN tablet 03/16/19 05/07/20 Unknown Rx PARoxetine [Paxil] 40 mg PO QDAY #30 tablet 03/19/19 05/07/20 Unknown Rx Propranolol LA [Inderal LA] 60 mg PO QDAY #30 capsule 03/19/19 05/07/20 Unknown Rx Simvastatin 20 mg PO HS #30 tablet 03/19/19 05/07/20 Unknown Rx Docusate Sodium [Colace CAP] 100 mg PO BID PRN #60 capsule 06/20/19 05/07/20 Unknown Rx Lactulose 10 gm PO DAILY PRN #150 ml 06/20/19 05/07/20 Unknown Rx Albuterol Mdi (or & Nicu Only) 2 puff IH Q4HR PRN #1 inhalation 11/05/19 05/07/20 Unknown Rx [ProAir HFA Inhaler] Famotidine [Pepcid] 20 mg PO BID #30 tablet 12/06/19 05/07/20 Unknown Rx QUEtiapine [SEROquel] 400 mg PO HS #30 tablet 05/15/20 Unknown Rx predniSONE [Deltasone] 20 mg PO QDAY #5 tab 05/15/20 Unknown Rx ALBUTEROL NEB's [Proventil 0.083% 2.5 mg IH QID PRN #30 05/17/20 Unknown Rx NEBS] Omeprazole 20 mg PO QDAY #30 05/17/20 Unknown Rx donepeziL [Aricept] 5 mg PO QHS #30 05/17/20 Unknown Rx Meloxicam [Mobic] 7.5 mg PO QDAY #15 tablet 06/30/20 Unknown Rx Trolamine Salicylate/Aloe Vera 85 gm TP TID PRN #85 cream..g. 06/30/20 Unknown Rx [Aspercreme 10% Cream] Active Meds: Active Medications Acetaminophen (Acetaminophen 325 Mg Tab) 650 mg PO Q4H PRN PRN Reason: Pain MILD(1-3)/Fever >100.5/VOGEL Apixaban (Apixaban 5 Mg Tab) 5 mg PO BID ANGE Last Admin: 03/25/21 09:26 Dose: 5 mg Documented by: Docusate Sodium (Docusate Sodium 100 Mg Cap) 100 mg PO BID PRN PRN Reason: Constipation Donepezil HCl (Donepezil 5 Mg Tab) 5 mg PO QHS ANGE Famotidine (Famotidine 20 Mg Tab) 20 mg PO BID ANGE Last Admin: 03/25/21 09:25 Dose: 20 mg Documented by: Sodium Chloride (Nacl 0.9% 1000 Ml) 1,000 mls @ 75 mls/hr IV DIRECT ANGE Last Admin: 03/24/21 22:06 Dose: 75 mls/hr Documented by: Ceftriaxone Sodium (Rocephin/Ns 2 Gm/100 Ml) 2 gm in 100 mls @ 200 mls/hr IV Q24HR ANGE; Protocol Last Admin: 03/25/21 09:24 Dose: 200 mls/hr Documented by: Azithromycin (Zithromax/Ns) 500 mg in 250 mls @ 250 mls/hr IV Q24HR [facility]; Protocol Last Admin: 03/25/21 09:24 Dose: 250 mls/hr Documented by: Magnesium Hydroxide (Magnesium Hydroxide (Mom) Oral Liqd Udc) 30 ml PO Q4H PRN PRN Reason: Constipation Meloxicam (Meloxicam 7.5 Mg Tab) 7.5 mg PO QDAY [facility] Last Admin: 03/25/21 09:24 Dose: 7.5 mg Documented by: Morphine Sulfate (Morphine 2 Mg/1 Ml Inj) 2 mg IV Q4H PRN PRN Reason: Pain, Moderate (4-6) Last Admin: 03/25/21 11:12 Dose: 2 mg Documented by: Morphine Sulfate (Morphine 4 Mg/1 Ml Inj) 4 mg IV Q4H PRN PRN Reason: Pain , Severe (7-10) Nicotine (Nicotine 21 Mg/24 Hr Patch) 21 mg TD QDAY [facility] Ondansetron HCl (Ondansetron 4 Mg/2 Ml Inj) 4 mg IV Q8H PRN PRN Reason: Nausea And Vomiting Paroxetine HCl (Paroxetine 20 Mg Tab) 40 mg PO QDAY [facility] Last Admin: 03/25/21 09:26 Dose: 40 mg Documented by: Pravastatin Sodium (Pravastatin 40 Mg Tab) 40 mg PO QHS ANGE Propranolol HCl (Propranolol La 60 Mg Cap) 60 mg PO QDAY [facility] Last Admin: 03/25/21 09:25 Dose: 60 mg Documented by: Quetiapine Fumarate (Quetiapine 200 Mg Tab) 400 mg PO HS [facility] Sodium Chloride (Sodium Chloride 0.9% 10 Ml Flush Syringe) 10 ml IV BID [facility] Last Admin: 03/25/21 09:26 Dose: 10 ml Documented by: Sodium Chloride (Sodium Chloride 0.9% 10 Ml Flush Syringe) 10 ml IV PRN PRN PRN Reason: LINE FLUSH Physical Examination - Physical Exam Narrative exam: Physical Exam (reviewed in chart to minimize risk of transmission) Constitutional: deferred Head, Ears, Nose: deferred Eyes: deferred Neck: deferred Oral: deferred Cardiovascular: deferred Respiratory: deferred GI: deferred Musculoskeletal: deferred Skin: deferred Hem/Lymphatic: deferred Psych: deferred Neurological: deferred - Constitutional Vitals: Vital Signs Temp Pulse Resp BP Pulse Ox 99.8 F H 116 H 18 140/72 94 03/24/21 19:45 03/25/21 09:25 03/24/21 23:33 03/25/21 09:25 03/25/21 08:35 Temperature -Last 24 Hours Temperature 99.8 F Temperature 100.5 F Results - Labs CBC & Chem 7: 03/25/21 07:35 03/25/21 07:35 Labs: Abnormal lab results 03/24/21 03/24/21 03/24/21 Range/Units 17:35 17:35 17:35 WBC (4.5-11.0) K/mm3 RBC 2.85 L (3.65-5.03) M/mm3 Hgb 9.1 L (10.1-14.3) gm/dl Hct 26.8 L (30.3-42.9) % MCH (28-32) pg MCHC (30-34) % RDW 17.1 H (13.2-15.2) % Lymph % (Auto) (13.4-35.0) % Lymph # (Auto) (1.2-5.4) K/mm3 Seg Neutrophils % (40.0-70.0) % Seg Neuts % (Manual) 85.0 H (40.0-70.0) % Lymphocytes % (Manual) 7.0 L (13.4-35.0) % Seg Neutrophils # Man 9.1 H (1.8-7.7) K/mm3 Lymphocytes # (Manual) 0.7 L (1.2-5.4) K/mm3 D-Dimer (0-234) ng/mlDDU Sodium 135 L (137-145) mmol/L Potassium 3.5 L (3.6-5.0) mmol/L Chloride (98-107) mmol/L Carbon Dioxide 18 L (22-30) mmol/L Creatinine 0.4 L (0.6-1.2) mg/dL Glucose 106 H (65-100) mg/dL Ferritin (10.0-200.0) ng/mL Lactate Dehydrogenase (91-180) units/L C-Reactive Protein (0.00-1.30) mg/dL Lipase 3 L (13-60) units/L 03/24/21 03/25/21 03/25/21 Range/Units 19:46 07:35 07:35 WBC 11.6 H (4.5-11.0) K/mm3 RBC 3.31 L 2.95 L (3.65-5.03) M/mm3 Hgb 9.6 L (10.1-14.3) gm/dl Hct 27.7 L (30.3-42.9) % MCH 33 H (28-32) pg MCHC 35 H (30-34) % RDW 16.6 H 17.1 H (13.2-15.2) % Lymph % (Auto) 9.4 L (13.4-35.0) % Lymph # (Auto) 0.7 L (1.2-5.4) K/mm3 Seg Neutrophils % 83.6 H (40.0-70.0) % Seg Neuts % (Manual) (40.0-70.0) % Lymphocytes % (Manual) (13.4-35.0) % Seg Neutrophils # Man (1.8-7.7) K/mm3 Lymphocytes # (Manual) (1.2-5.4) K/mm3 D-Dimer 905.08 H (0-234) ng/mlDDU Sodium (137-145) mmol/L Potassium (3.6-5.0) mmol/L Chloride (98-107) mmol/L Carbon Dioxide (22-30) mmol/L Creatinine (0.6-1.2) mg/dL Glucose (65-100) mg/dL Ferritin (10.0-200.0) ng/mL Lactate Dehydrogenase (91-180) units/L C-Reactive Protein (0.00-1.30) mg/dL Lipase (13-60) units/L 03/25/21 03/25/21 03/25/21 Range/Units 07:35 07:35 07:35 WBC (4.5-11.0) K/mm3 RBC (3.65-5.03) M/mm3 Hgb (10.1-14.3) gm/dl Hct (30.3-42.9) % MCH (28-32) pg MCHC (30-34) % RDW (13.2-15.2) % Lymph % (Auto) (13.4-35.0) % Lymph # (Auto) (1.2-5.4) K/mm3 Seg Neutrophils % (40.0-70.0) % Seg Neuts % (Manual) (40.0-70.0) % Lymphocytes % (Manual) (13.4-35.0) % Seg Neutrophils # Man (1.8-7.7) K/mm3 Lymphocytes # (Manual) (1.2-5.4) K/mm3 D-Dimer (0-234) ng/mlDDU Sodium (137-145) mmol/L Potassium (3.6-5.0) mmol/L Chloride 108.3 H (98-107) mmol/L Carbon Dioxide 19 L (22-30) mmol/L Creatinine 0.4 L (0.6-1.2) mg/dL Glucose 108 H (65-100) mg/dL Ferritin 942.0 H (10.0-200.0) ng/mL Lactate Dehydrogenase 183 H (91-180) units/L C-Reactive Protein 9.60 H (0.00-1.30) mg/dL Lipase (13-60) units/L - Imaging and Cardiology Chest x-ray: report reviewed, image reviewed CT scan - chest: report reviewed, image reviewed (small left basal pneumonia v/s atelectasis) Assessment and Plan Cultures: SARS CoV2 PCR: Pending 03/24/2021 blood culture: In process A/P: 70-year-old female with COPD, hypertension, PE, sleep apnea, dementia was admitted to the hospital with cough and shortness of breath: #Left basilar pneumonia: Inflammatory markers are elevated, follow-up COVID-19 PCR. Procalcitonin is low but there were some air bronchograms noted on CT scan. #Acute hypoxic respiratory failure: On Venturi mask. #History of PE: On apixaban Recs: Follow-up COVID-19 PCR, if positive, start remdesivir in addition to steroids For now, continue ceftriaxone and azithromycin Faraz Bauer MD, FACP [facility] O: [phone] F: [phone]
[2021-03-25] MEDS: NICOTINE 21 MG/24 HR PATCH TD SCH (12:55)
[2021-03-25] MEDS: ACETAMINOPHEN 325 MG TAB PO PRN (12:55)
--- NOTE | 2021-03-25 14:30 | Progress Note ---
Assessment and Plan A/P - Patient Problems (1) Community acquired pneumonia Current Visit: Yes Status: Acute Plan to address problem: Patient placed on empiric IV antibiotics. We will await culture results Productive of yellow sputum. (2) Acute respiratory failure with Hypoxia Current Visit: Yes Status: Acute Qualifiers: Plan to address problem: Patient placed on oxygen by nasal cannula. We will keep O2 saturation greater or equal to 94%. (3) Suspected COVID-19 virus infection Current Visit: Yes Status: Acute Plan to address problem: Covid negative (4) Abdominal pain Current Visit: Yes Status: Acute Plan to address problem: Resolved (5) DVT prophylaxis Current Visit: No Status: Acute Plan to address problem: Patient currently on anticoagulation with Eliquis. (6) Full code status Current Visit: Yes Status: Acute Plan to address problem: Patient is full code. Subjective Date of service: 03/25/21 Principal diagnosis: Acute resp failure Interval history: 70-year-old female with known history of COPD, hypertension, pulmonary embolism, sleep apnea, depression, dementia, hepatitis and liver cirrhosis presents to the emergency room today with generalized malaise, nausea and abdominal pain which has been ongoing for the past few days. She denies any fever but that she has been having some chills. She also complains of some abdominal discomfort especially in the upper abdomen. Patient has been having some cough which has been productive for some slightly yellowish sputum. Patient denies any sick contacts and no recent travel. Denies any contact with anyone with COVID-19. Patient is still unsure whether she had the COVID-19 vaccine. Patient follows up with . Upon arrival in the emergency room, patient was slightly hypoxic and was placed on oxygen by nasal cannula. Work-up in the emergency room today, labs reveals leukocytosis of 11.6 chemistry was significant for mild hypokalemia of 3.5, CT of the abdomen and pelvis reveals mild to moderate emphysema with dense medial left basilar consolidation/atelectasis and air bronchograms suggesting pneumonia. No acute findings in the abdomen. Patient has been admitted with pneumonia. We will also rule out for COVID-19. 03/25/21 Still very SOB Covid negative wheezing Objective - Constitutional Vitals: Vital Signs - 12hr 03/25/21 03/25/21 03/25/21 06:10 08:35 09:25 Pulse Rate 116 H Blood Pressure 140/72 O2 Sat by Pulse 91 94 Oximetry General appearance: Present: mild distress, well-nourished - EENT Eyes: PERRL, EOM intact ENT: hearing intact, clear oral mucosa Ears: bilateral: normal - Neck Neck: supple, normal ROM - Respiratory Respiratory effort: normal Respiratory: bilateral: diminished, rhonchi, wheezing - Breasts Breasts: normal - Cardiovascular Heart rate: 78 Rhythm: regular Heart Sounds: Present: S1 & S2. Absent: gallop, rub Extremities: pulses intact, No edema, normal color, Full ROM - Gastrointestinal General gastrointestinal: Present: soft, non-tender, non-distended, normal bowel sounds - Genitourinary Female genitourinary: normal - Integumentary Integumentary: clear, warm, dry - Musculoskeletal Musculoskeletal: 1, strength equal bilaterally - Neurologic Neurologic: moves all extremities - Psychiatric Psychiatric: memory intact, appropriate mood/affect, intact judgment & insight - Allied health notes Allied health notes reviewed: nursing, case management - Labs CBC & Chem 7: 03/25/21 07:35 03/25/21 07:35 Labs: Abnormal lab results 03/24/21 03/24/21 03/24/21 Range/Units 17:35 17:35 17:35 WBC (4.5-11.0) K/mm3 RBC 2.85 L (3.65-5.03) M/mm3 Hgb 9.1 L (10.1-14.3) gm/dl Hct 26.8 L (30.3-42.9) % MCH (28-32) pg MCHC (30-34) % RDW 17.1 H (13.2-15.2) % Lymph % (Auto) (13.4-35.0) % Lymph # (Auto) (1.2-5.4) K/mm3 Seg Neutrophils % (40.0-70.0) % Seg Neuts % (Manual) 85.0 H (40.0-70.0) % Lymphocytes % (Manual) 7.0 L (13.4-35.0) % Seg Neutrophils # Man 9.1 H (1.8-7.7) K/mm3 Lymphocytes # (Manual) 0.7 L (1.2-5.4) K/mm3 D-Dimer (0-234) ng/mlDDU Sodium 135 L (137-145) mmol/L Potassium 3.5 L (3.6-5.0) mmol/L Chloride (98-107) mmol/L Carbon Dioxide 18 L (22-30) mmol/L Creatinine 0.4 L (0.6-1.2) mg/dL Glucose 106 H (65-100) mg/dL Ferritin (10.0-200.0) ng/mL Lactate Dehydrogenase (91-180) units/L C-Reactive Protein (0.00-1.30) mg/dL Lipase 3 L (13-60) units/L 03/24/21 03/25/21 03/25/21 Range/Units 19:46 07:35 07:35 WBC 11.6 H (4.5-11.0) K/mm3 RBC 3.31 L 2.95 L (3.65-5.03) M/mm3 Hgb 9.6 L (10.1-14.3) gm/dl Hct 27.7 L (30.3-42.9) % MCH 33 H (28-32) pg MCHC 35 H (30-34) % RDW 16.6 H 17.1 H (13.2-15.2) % Lymph % (Auto) 9.4 L (13.4-35.0) % Lymph # (Auto) 0.7 L (1.2-5.4) K/mm3 Seg Neutrophils % 83.6 H (40.0-70.0) % Seg Neuts % (Manual) (40.0-70.0) % Lymphocytes % (Manual) (13.4-35.0) % Seg Neutrophils # Man (1.8-7.7) K/mm3 Lymphocytes # (Manual) (1.2-5.4) K/mm3 D-Dimer 905.08 H (0-234) ng/mlDDU Sodium (137-145) mmol/L Potassium (3.6-5.0) mmol/L Chloride (98-107) mmol/L Carbon Dioxide (22-30) mmol/L Creatinine (0.6-1.2) mg/dL Glucose (65-100) mg/dL Ferritin (10.0-200.0) ng/mL Lactate Dehydrogenase (91-180) units/L C-Reactive Protein (0.00-1.30) mg/dL Lipase (13-60) units/L 03/25/21 03/25/21 03/25/21 Range/Units 07:35 07:35 07:35 WBC (4.5-11.0) K/mm3 RBC (3.65-5.03) M/mm3 Hgb (10.1-14.3) gm/dl Hct (30.3-42.9) % MCH (28-32) pg MCHC (30-34) % RDW (13.2-15.2) % Lymph % (Auto) (13.4-35.0) % Lymph # (Auto) (1.2-5.4) K/mm3 Seg Neutrophils % (40.0-70.0) % Seg Neuts % (Manual) (40.0-70.0) % Lymphocytes % (Manual) (13.4-35.0) % Seg Neutrophils # Man (1.8-7.7) K/mm3 Lymphocytes # (Manual) (1.2-5.4) K/mm3 D-Dimer (0-234) ng/mlDDU Sodium (137-145) mmol/L Potassium (3.6-5.0) mmol/L Chloride 108.3 H (98-107) mmol/L Carbon Dioxide 19 L (22-30) mmol/L Creatinine 0.4 L (0.6-1.2) mg/dL Glucose 108 H (65-100) mg/dL Ferritin 942.0 H (10.0-200.0) ng/mL Lactate Dehydrogenase 183 H (91-180) units/L C-Reactive Protein 9.60 H (0.00-1.30) mg/dL Lipase (13-60) units/L
[2021-03-25 16:00] LABS: Bacteria,Urine 2+ /HPF (Negative); Bilirubin,Urine SM (Negative); Blood,Urine NEG (Negative); Color,Urine Amber (Yellow); Mucus,Urine 3+ /HPF
[2021-03-25 16:25] LABS: Ictotest,Urine Positive (Negative)
[2021-03-25] MEDS: QUEtiapine 200 MG TAB PO SCH (21:20)
[2021-03-25] MEDS: PRAVASTATIN 40 MG TAB PO SCH (21:20)
[2021-03-25] MEDS: DONEPEZIL 5 MG TAB PO SCH (21:26)
[2021-03-25] MEDS: SODIUM CHLORIDE 0.9% 1000 ML 1,000 ML IV SCH (23:02)
[2021-03-26] MEDS: MORPHINE 2 MG/1 ML INJ IV PRN ×4 (00:29→21:34)
[2021-03-26] MEDS: ACETAMINOPHEN 325 MG TAB PO PRN (06:04)
[2021-03-26] MEDS: NICOTINE 21 MG/24 HR PATCH TD SCH (09:11)
[2021-03-26] MEDS: AZITHROMYCIN 250 MG TAB PO SCH (09:12)
[2021-03-26] MEDS: MELOXICAM 7.5 MG TAB PO SCH (09:12)
[2021-03-26] MEDS: APIXABAN 5 MG TAB PO SCH ×2 (09:12→21:34)
[2021-03-26] MEDS: FAMOTIDINE 20 MG TAB PO SCH ×2 (09:12→21:34)
[2021-03-26] MEDS: cefTRIAXone/NS 2 GM/100 ML 2 GM/100 ML BAG IV SCH (09:13)
[2021-03-26] MEDS: PARoxetine 20 MG TAB PO SCH (10:00)
[2021-03-26] MEDS: PROPRANOLOL LA 60 MG CAP PO SCH (10:00)
--- NOTE | 2021-03-26 13:05 | Progress Note ---
Assessment and Plan Cultures: SARS CoV2 PCR: Negative 03/24/2021 blood culture: In process A/P: 70-year-old female with COPD, hypertension, PE, sleep apnea, dementia was admitted to the hospital with cough and shortness of breath: #Left basilar pneumonia: Inflammatory markers are elevated negative Covid PCR. Procalcitonin is low but there were some air bronchograms noted on CT scan. #Acute hypoxic respiratory failure: On 3L NC #History of PE: On apixaban Recs: -continue ceftriaxone and azithromycin, complete 5 days -When ready for discharge okay to discharge with Omnicef 300 mg every 12 hours. Cristina Buckley MD [facility] ([facility]) O: [phone] F: [phone] Subjective Date of service: 03/26/21 Interval history: Afebrile, normal. Covid negative, blood cultures so far. Currently on 3 L nasal cannula. Objective - Exam Narrative Exam: Physical exam deferred to reduce risk of transmission of COVID-19. Please refer to primary team's note. - Constitutional Vitals: Vital Signs Temp Pulse Resp BP Pulse Ox 97.5 F L 63 18 105/55 93 03/26/21 11:16 03/26/21 11:16 03/26/21 11:16 03/26/21 11:16 03/26/21 11:16 Temperature -Last 24 Hours Temperature 97.5 F Temperature 97.0 F Temperature 97.7 F Temperature 98.0 F Temperature 97.8 F - Labs CBC & Chem 7: 03/25/21 07:35 03/25/21 07:35 Labs: Abnormal lab results 03/25/21 Range/Units 14:50 Ur Specific [place] 1.031 H (1.003-1.030) Urine WBC (Auto) 18.0 H (0.0-6.0) /HPF U Epithel Cells (Auto) 61.0 H (0-13.0) /HPF
--- NOTE | 2021-03-26 16:14 | Progress Note ---
Assessment and Plan A/P - Patient Problems (1) Community acquired pneumonia Current Visit: Yes Status: Acute Plan to address problem: Patient placed on empiric IV antibiotics. We will await culture results Productive of yellow sputum. Left basilar pneumonia: Inflammatory markers are elevated, negative Covid PCR. Procalcitonin is low but there were some air bronchograms noted on CT scan. (2) Acute respiratory failure with Hypoxia Current Visit: Yes Status: Acute Qualifiers: Plan to address problem: Patient placed on 3 liter N oxygen by nasal cannula. We will keep O2 saturation greater or equal to 94%. (3) Suspected COVID-19 virus infection Current Visit: Yes Status: Acute Plan to address problem: Covid negative (4) Copd exacerbation Current Visit: Yes Status: Acute Neb treatments IV Steroids IV abx (5) DVT prophylaxis Current Visit: No Status: Acute Plan to address problem: Patient currently on anticoagulation with Eliquis. (6) Full code status Current Visit: Yes Status: Acute Plan to address problem: Patient is full code. Subjective Date of service: 03/26/21 Principal diagnosis: Acute resp failure with hypoxia Interval history: 70-year-old female with known history of COPD, hypertension, pulmonary embolism, sleep apnea, depression, dementia, hepatitis and liver cirrhosis presents to the emergency room today with generalized malaise, nausea and abdominal pain which has been ongoing for the past few days. She denies any fever but that she has been having some chills. She also complains of some abdominal discomfort especially in the upper abdomen. Patient has been having some cough which has been productive for some slightly yellowish sputum. Patient denies any sick contacts and no recent travel. Denies any contact with anyone with COVID-19. Patient is still unsure whether she had the COVID-19 vaccine. Patient follows up with . Upon arrival in the emergency room, patient was slightly hypoxic and was placed on oxygen by nasal cannula. Work-up in the emergency room today, labs reveals leukocytosis of 11.6 chemistry was significant for mild hypokalemia of 3.5, CT of the abdomen and pelvis reveals mild to moderate emphysema with dense medial left basilar consolidation/atelectasis and air bronchograms suggesting pneumonia. No acute findings in the abdomen. Patient has been admitted with pneumonia. We will also rule out for COVID-19. 03/25/21 Still very SOB Covid negative wheezing 03/26/21 Still whezzing Lives with her boyfriend who helps her Covid negative Objective - Constitutional Vitals: Vital Signs - 12hr 03/26/21 03/26/21 03/26/21 05:36 08:08 11:16 Temperature 97.0 F L 97.5 F L Pulse Rate 68 63 Respiratory 16 18 Rate Blood Pressure 95/47 105/55 O2 Sat by Pulse 93 94 93 Oximetry General appearance: Present: mild distress, well-nourished - EENT Eyes: PERRL, EOM intact ENT: hearing intact, clear oral mucosa Ears: bilateral: normal - Neck Neck: supple, normal ROM - Respiratory Respiratory effort: normal Respiratory: bilateral: diminished, rhonchi, wheezing - Breasts Breasts: normal - Cardiovascular Heart rate: 78 Rhythm: regular Heart Sounds: Present: S1 & S2. Absent: gallop, rub Extremities: pulses intact, No edema, normal color, Full ROM - Gastrointestinal General gastrointestinal: Present: soft, non-tender, non-distended, normal bowel sounds - Genitourinary Female genitourinary: normal - Integumentary Integumentary: clear, warm, dry - Musculoskeletal Musculoskeletal: 1, strength equal bilaterally - Neurologic Neurologic: moves all extremities - Psychiatric Psychiatric: memory intact, appropriate mood/affect, intact judgment & insight - Labs CBC & Chem 7: 03/25/21 07:35 03/25/21 07:35
[2021-03-26] MEDS: SODIUM CHLORIDE 0.9% 1000 ML 1,000 ML IV SCH (20:26)
[2021-03-26] MEDS: PRAVASTATIN 40 MG TAB PO SCH (21:34)
[2021-03-26] MEDS: QUEtiapine 200 MG TAB PO SCH (21:34)
[2021-03-26] MEDS: DONEPEZIL 5 MG TAB PO SCH (22:03)
[2021-03-26] MEDS ORDERED: IPRATROPIUM/ALBUTEROL SULFATE 3 ML AMPUL.NEB IH PRN (23:46)
[2021-03-27] MEDS: methylPREDNISolone Sod Succinate 40 MG/1 ML INJ IV SCH ×4 (01:11→21:29)
[2021-03-27] MEDS: IPRATROPIUM/ALBUTEROL SULFATE 3 ML AMPUL.NEB IH SCH ×6 (01:39→19:49)
[2021-03-27] MEDS: cefTRIAXone/NS 2 GM/100 ML 2 GM/100 ML BAG IV SCH (09:13)
[2021-03-27] MEDS: NICOTINE 21 MG/24 HR PATCH TD SCH (09:16)
[2021-03-27] MEDS: AZITHROMYCIN 250 MG TAB PO SCH (09:17)
[2021-03-27] MEDS: MELOXICAM 7.5 MG TAB PO SCH (09:17)
[2021-03-27] MEDS: FAMOTIDINE 20 MG TAB PO SCH ×2 (09:17→21:29)
[2021-03-27] MEDS: APIXABAN 5 MG TAB PO SCH ×2 (09:17→21:29)
[2021-03-27 09:18] LABS: Basophils % (Auto) 0.6 % (0.0-1.8); Eosinophils # (Auto) 0.1 K/mm3 (0.0-0.4); Eosinophils % (Auto) 3.2 % (0.0-4.3); Hematocrit 23.5 % (30.3-42.9); Lymphocytes # (Auto) 0.7 K/mm3 (1.2-5.4); Lymphocytes % (Auto) 15.9 % (13.4-35.0); Mean Corpuscular HGB Conc 34 % (30-34); Mean Corpuscular Volume 94 fl (79-97); Monocytes # (Auto) 0.3 K/mm3 (0.0-0.8); Monocytes % (Auto) 7.5 % (0.0-7.3); Platelet Count 199 K/mm3 (140-440); Red Blood Count 2.49 M/mm3 (3.65-5.03); Red Cell Distribution Width 16.4 % (13.2-15.2)
[2021-03-27] MEDS: PARoxetine 20 MG TAB PO SCH (09:18)
[2021-03-27] MEDS: PROPRANOLOL LA 60 MG CAP PO SCH (09:18)
[2021-03-27 09:46] LABS: Albumin 3.2 g/dL (3.9-5); Blood Urea Nitrogen 10 mg/dL (7-17); Hemolysis Index 0
[2021-03-27 09:49] LABS: Alanine Aminotransferase < 5 units/L (7-56); BUN/Creatinine Ratio 25
[2021-03-27] MEDS: MORPHINE 2 MG/1 ML INJ IV PRN ×2 (15:13→21:37)
--- NOTE | 2021-03-27 15:24 | Progress Note ---
Assessment and Plan Cultures: SARS CoV2 PCR: Negative 03/24/2021 blood culture: In process A/P: 70-year-old female with COPD, hypertension, PE, sleep apnea, dementia was admitted to the hospital with cough and shortness of breath: #Left basilar pneumonia: Inflammatory markers are elevated negative Covid PCR. Procalcitonin is low but there were some air bronchograms noted on CT scan. #Acute hypoxic respiratory failure: On 3L NC #History of PE: On apixaban Recs: -continue ceftriaxone and azithromycin, complete 5 days -When ready for discharge okay to discharge with Omnicef 300 mg every 12 hours. Cristina Buckley MD [facility] ([facility]) O: [phone] F: [phone] Subjective Date of service: 03/27/21 Principal diagnosis: Acute resp failure with hypoxia Interval history: Afebrile, white count slightly low. Objective - Exam Narrative Exam: Physical exam deferred to reduce risk of transmission of COVID-19. Please refer to primary team's note. - Constitutional Vitals: Vital Signs Temp Pulse Resp BP Pulse Ox 98.1 F 65 18 108/45 94 03/27/21 11:16 03/27/21 14:00 03/27/21 14:00 03/27/21 11:16 03/27/21 11:16 Temperature -Last 24 Hours Temperature 98.1 F Temperature 98.2 F Temperature 98.4 F - Labs CBC & Chem 7: 03/27/21 06:54 03/27/21 06:53 Labs: Abnormal lab results 03/27/21 03/27/21 Range/Units 06:53 06:54 WBC 4.4 L (4.5-11.0) K/mm3 RBC 2.49 L (3.65-5.03) M/mm3 Hgb 8.0 L (10.1-14.3) gm/dl Hct 23.5 L (30.3-42.9) % RDW 16.4 H (13.2-15.2) % [place] % (Auto) 7.5 H (0.0-7.3) % Lymph # (Auto) 0.7 L (1.2-5.4) K/mm3 Seg Neutrophils % 72.8 H (40.0-70.0) % Creatinine 0.4 L (0.6-1.2) mg/dL Calcium 8.0 L (8.4-10.2) mg/dL ALT < 5 L (7-56) units/L Total Protein 5.2 L D (6.3-8.2) g/dL Albumin 3.2 L (3.9-5) g/dL
--- NOTE | 2021-03-27 16:00 | Discharge Summary ---
Providers - Providers Date of Admission: 03/25/21 12:00 Date of discharge: 03/27/21 Attending physician: ZULEIKA LIND 03/24/21 21:49 Consult to Physician [CONS] Routine Comment: Consulting Provider: MICAELA JI Physician Instructions: Reason For Exam: Pneumonia- R/O Covid-19 03/26/21 13:57 Physical Therapy Evaluation and Treat [CONS] Stat Comment: Reason For Exam: eval and treat Primary care physician: MITCHELL GUEVARA Hospitalization Reason for admission: Worsening shortness of breath and cough Condition: Stable Pertinent studies: Chest x-ray: Mild pleuroparenchymal opacity in the left normal hemithorax nonspecific likely related to combination of pleural effusion and underlying pneumonia or atelectasis CT chest: Mild to moderate emphysema with dense medial left basilar consolidation atelectasis and air bronchograms suggestive of pneumonia CT abdomen and pelvis: Left basilar consolidation atelectasis/pneumonia, no acute abnormality seen the abdomen and pelvis Hospital course: 70-year-old female patient with significant past medical history of COPD, hypertension, pulmonary embolism, sleep apnea, depression and dementia was admitted through emergency room with cough and abdominal pain of few days duration patient did not have any fever with chills, patient was initially evaluated in the ED chest x-ray and CT scan of the chest consistent with left- sided infiltrate possible community-acquired pneumonia, patient was admitted as PUI however Pablo PCR test is negativeEvaluated by ID and started treating with appropriate antibiotics, patient was also noted to have COPD exacerbation received nebulizers, oxygen, IV antibiotics, tapering dose of steroids. Patient has history of ongoing tobacco use smoking cessation counseling done advised nicotine patch as needed patient symptoms slowly but gradually improved today patient is comfortable no new complaints, physical examination prior to discharge no new changes seen And cleared by consultants to discharge home oral antibiotics, Patient is hemodynamically and clinically stable at discharge patient strongly advised to quit tobacco use patient verbalized understanding patient is stable at discharge. Discharge diagnosis: (1) Community acquired pneumonia Patient placed on empiric IV antibiotics. We will await culture results Productive of yellow sputum. Left basilar pneumonia: Inflammatory markers are elevated, negative Covid PCR. Procalcitonin is low but there were some air bronchograms noted on CT scan. (2) Acute respiratory failure with Hypoxia Patient placed on 3 liter N oxygen by nasal cannula. We will keep O2 saturation greater or equal to 94%. (3)COVID-19 negative test Covid negative (4) Copd exacerbation Oxygen, nebulizers, IV steroids, IV antibiotics (5) DVT prophylaxis Patient currently on anticoagulation with Eliquis. (6) Full code status Patient is full code. (7} ongoing tobacco use Smoking cessation counseling, advised nicotine patch as needed Patient is stable at discharge Disposition: DC-01 TO HOME OR SELFCARE Final Discharge Diagnosis (Prints w/discharge instructions): Community-acquired pneumonia. Acute respiratory failure with hypoxia. COVID-19 negative. COPD exacerbation. Ongoing tobacco use Time spent for discharge: 35 min Core Measure Documentation - Palliative Care Palliative Care/ Comfort Measures: Not Applicable - Core Measures Any of the following diagnoses?: none Exam - Constitutional Vitals: Temp Pulse Resp BP Pulse Ox 98.1 F 65 18 108/45 94 03/27/21 11:16 03/27/21 14:00 03/27/21 14:00 03/27/21 11:16 03/27/21 11:16 General appearance: Present: no acute distress, well-nourished - EENT Eyes: Present: PERRL, EOM intact - Neck Neck: Present: supple, normal ROM - Respiratory Respiratory effort: normal Respiratory: bilateral: diminished, negative: rales, rhonchi, wheezing - Cardiovascular Rhythm: regular Heart Sounds: Present: S1 & S2 - Extremities Extremities: no ischemia, No edema - Abdominal General gastrointestinal: Present: soft, non-tender, non-distended, normal bowel sounds - Integumentary Integumentary: Present: clear, warm - Musculoskeletal Musculoskeletal: strength equal bilaterally, generalized weakness - Psychiatric Psychiatric: appropriate mood/affect - Neurologic Neurologic: moves all extremities Plan Activity: advance as tolerated, fall precautions Diet: regular, other (Cardiac diet) Durable Medical Equipment Needed Upon Discharge: Walker-Rolling Additional Instructions: Fall precautions. If you have worsening symptoms contact MD or go to emergency room. Continue home oxygen as before Follow up with: MITCHELL GUEVARA MD [Primary Care Provider] - 3-5 Days Prescriptions: Cefdinir 300 mg PO BID #4 capsule Nicotine [Habitrol] 21 mg TD QDAY #30 patch Prednisone [predniSONE 10 mg (6-Day Pack, 21 Tabs)] 10 mg PO .TAPER #1 tab.ds.pk
[2021-03-27 21:09] VITALS: BP 125/53
[2021-03-27] MEDS: PRAVASTATIN 40 MG TAB PO SCH (21:29)
[2021-03-27] MEDS: DONEPEZIL 5 MG TAB PO SCH (21:29)
[2021-03-27] MEDS: QUEtiapine 200 MG TAB PO SCH (21:29)
== END 2021-03-27 22:45 | disposition home or self-care (01) | DRG 189 ==
LOC: ED 16:01 → 3A 21:23 → OBSVTOIN 03-25 12:00 → 3A 03-25 19:01
PROVIDERS: ADMIT Internal Medicine Geriatric Medicine; ATTEND Internal Medicine
DX: J96.21 Acute and chronic respiratory failure with hypoxia (principal); J18.9 Pneumonia, unspecified organism; I10 Essential (primary) hypertension; M81.0 Age-related osteoporosis without current pathological fracture; J43.9 Emphysema, unspecified; R10.9 Unspecified abdominal pain; E87.6 Hypokalemia; F29 Unspecified psychosis not due to a substance or known physiological condition; Z20.822 Contact with and (suspected) exposure to COVID-19; F17.200 Nicotine dependence, unspecified, uncomplicated; K21.9 Gastro-esophageal reflux disease without esophagitis; F03.90 Unspecified dementia, unspecified severity, without behavioral disturbance, psychotic disturbance, mood disturbance, and anxiety; F32.9 Major depressive disorder, single episode, unspecified; Z87.01 Personal history of pneumonia (recurrent); Z86.711 Personal history of pulmonary embolism; Z86.19 Personal history of other infectious and parasitic diseases; Z91.041 Radiographic dye allergy status; Z86.14 Personal history of Methicillin resistant Staphylococcus aureus infection; Z90.49 Acquired absence of other specified parts of digestive tract
CPT/HCPCS: 36415; 71045; 71250; 74176; 80048; 80053; 81001; 82140; 82728; 83615; 83690; 84145; 85007; 85025; 85027; 85379; 85610; 86140; 87040; 87086; 94640; 96374; G0378; A9270-GY; J0456; J0696; J1100; J2060; J2270; J2405; J2920; J3486; J7030; U0003